=== PATIENT | male | born 1955 | race Two or more races ===

== ENCOUNTER 2017-07-31 12:32 | Inpatient (IN) | payer MEDICAID ==
[~2017-07-31] VITALS: Ht 182.9 cm; Wt 55.3 kg
[2017-07-31] MEDS ORDERED: Acetaminophen 650mg/20.3ml ONE (12:38)
[2017-07-31 12:56] VITALS: BP 110/60
[2017-07-31] MEDS ORDERED: Acetaminophen 650mg/20.3ml NG ONE (13:00)
--- NOTE | 2017-07-31 13:06 | Emergency Room Report ---
History of Present Illness General Chief Complaint: Palpitations Source: Patient (RACHELE MCGEE M.D.) Present Illness HPI [id number] Trach/vent sent for "rapid heart beat." HPI otherwise limited Recent history of ?PNA PMHx: Type 2 DM, anemia, GERD, HTN, TBI, CVA (RACHELE MCGEE M.D.) Allergies: Coded Allergies: No Known Allergies (Unverified , 07/31/17) Patient History Past Medical History: other - See HPI Past Surgical History: other - Trach Pertinent Family History: none Social History: Denies: smoking, alcohol use, drug use Immunizations: UTD Reviewed Nursing Documentation: PMH: Agreed, PSxH: Agreed (RACHELE MCGEE M.D.) Nursing Documentation-PMH Hx COPD: Yes - trach vent History Of Psychiatric Problem: Yes Hx Cerebrovascular Accident: Yes (RACHELE MCGEE M.D.) Review of Systems All Other Systems: limited - Trach/vent (RACHELE MCGEE M.D.) Physical Exam Vital Signs Date Time Temp Pulse Resp B/P (MAP) Pulse Ox O2 Delivery O2 Flow Rate FiO2 07/31/17 12:05 135 18 Mechanical Ventilator 50.0 50 07/31/17 12:15 113/68 (83) 100 07/31/17 12:52 103.8 Sp02 EP Interpretation: reviewed, normal General Appearance: normal inspection, well appearing, no apparent distress, non-toxic, thin, Chronically Ill Head: normocephalic, atraumatic Eyes: bilateral eye PERRL, bilateral eye EOMI ENT: no angioedema, uvula midline, dry mucus membranes Neck: normal inspection, full range of motion, supple, thyroid normal, no meningismus, no bony tend, tracheotomy Respiratory: normal inspection, lungs clear, normal breath sounds, no rhonchi, no respiratory distress, no retraction, no accessory muscle use, no wheezing, speaking full sentences Cardiovascular #1: regular rate, rhythm, no edema, no JVD, normal capillary refill Gastrointestinal: normal inspection, normal bowel sounds, non tender, soft, no mass, no peritonitis, non-distended, no guarding, no hernia, no pulsatile mass Genitourinary: no CVA tenderness Musculoskeletal: normal inspection, back normal, normal range of motion, no calf tenderness, pelvis stable, Deloris's Sign negative Neurologic: motor strength/tone normal, other - Contracted lower extremities to the left, bandages on feet Skin: normal inspection, normal color, no rash Lymphatic: normal inspection, no adenopathy (RACHELE MCGEE M.D.) Medical Decision Making Diagnostic Impression: Primary Impression: Sepsis Qualified Codes: A41.9 - Sepsis, unspecified organism Additional Impressions: UTI (urinary tract infection) Qualified Codes: T83.511A - Infection and inflammatory reaction due to indwelling urethral catheter, initial encounter; N39.0 - Urinary tract infection , site not specified Pleural effusion, left ER Course Sepsis criteria met - tachycardia, fever Empiric Abx, VT tylenol, 30cc/kg fluid bolus UA infected CXR: small left pleural effusion Blood Cx pending Reassessment after fluid bolus HR 120, BP 127/[address] Jensen, 124pm (RACHELE MCGEE M.D.) ER Course Please see above note. Patient septic. Vegetative state. VS improved. Due to sepsis, adding second antibiotic. Continued hydration. Discussed with Dr. Garrett at [facility] who will arrange transport. Unable to arrange transport. Admit [facility] Dr. James. Laboratory Tests Test 07/31/17 12:40 White Blood Count 23.8 K/UL (4.8-10.8) *H Red Blood Count 2.79 M/UL (4.70-6.10) L Hemoglobin 8.5 G/DL (14.2-18.0) L Hematocrit 23.0 % (42.0-52.0) L Mean Corpuscular Volume 83 FL (80-99) Mean Corpuscular Hemoglobin 30.5 PG (27.0-31.0) Mean Corpuscular Hemoglobin Concent 36.9 G/DL (32.0-36.0) H Red Cell Distribution Width 16.3 % (11.6-14.8) H Platelet Count 420 K/UL (150-450) Mean Platelet Volume 6.6 FL (6.5-10.1) Neutrophils (%) (Auto) % (45.0-75.0) Lymphocytes (%) (Auto) % (20.0-45.0) Monocytes (%) (Auto) % (1.0-10.0) Eosinophils (%) (Auto) % (0.0-3.0) Basophils (%) (Auto) % (0.0-2.0) Differential Total Cells Counted 100 Neutrophils % (Manual) 91 % (45-75) H Lymphocytes % (Manual) 5 % (20-45) L Monocytes % (Manual) 4 % (1-10) Eosinophils % (Manual) 0 % (0-3) Basophils % (Manual) 0 % (0-2) Band Neutrophils 0 % (0-8) Platelet Estimate Adequate Platelet Morphology Normal Hypochromasia 1+ Anisocytosis 1+ Urine Color Yellow Urine Appearance Clear Urine pH 5 (4.5-8.0) Urine Specific [place] 1.010 (1.005-1.035) Urine Protein 2+ (NEGATIVE) H Urine Glucose (UA) Negative (NEGATIVE) Urine Ketones 1+ (NEGATIVE) H Urine Occult Blood 3+ (NEGATIVE) H Urine Nitrite Negative (NEGATIVE) Urine Bilirubin Negative (NEGATIVE) Urine Urobilinogen Normal MG/DL (0.0-1.0) Urine Leukocyte Esterase 3+ (NEGATIVE) H Urine RBC 5-10 /HPF (0 - 0) H Urine WBC 10-15 /HPF (0 - 0) H Urine Squamous Epithelial Cells Occasional /LPF Urine Bacteria Occasional /HPF (NONE) Sodium Level 132 MMOL/L (136-145) L Potassium Level 4.0 MMOL/L (3.5-5.1) Chloride Level 98 MMOL/L (98-107) Carbon Dioxide Level 24 MMOL/L (21-32) Anion Gap 11 mmol/L (5-15) Blood Urea Nitrogen 24 mg/dL (7-18) H Creatinine 1.2 MG/DL (0.55-1.30) Estimate Glomerular Filtration Rate > 60 mL/min (>60) Glucose Level 125 MG/DL (74-106) H Lactic Acid Level 2.20 mmol/L (0.66-2.22) Calcium Level 8.2 MG/DL (8.5-10.1) L Total Bilirubin 0.3 MG/DL (0.2-1.0) Aspartate Amino Transferase (AST) 25 U/L (15-37) Alanine Aminotransferase (ALT) 11 U/L (12-78) L Alkaline Phosphatase 330 U/L (46-116) H Total Creatine Kinase 25 U/L (26-308) L Creatine Kinase MB 0.6 NG/ML (0.0-3.6) Creatine Kinase MB Relative Index 2.4 Troponin I 0.025 ng/mL (0.000-0.056) Total Protein 7.4 G/DL (6.4-8.2) Albumin 1.3 G/DL (3.4-5.0) L Globulin 6.1 g/dL Albumin/Globulin Ratio 0.2 (1.0-2.7) L Microbiology Date/Time Source Procedure Growth Status 07/31/17 13:22 Nasal Nares Influenza Types A,B Antigen (SUBHASH) - Final Complete (Faraz Redding M.D.) EKG Diagnostic Results Rate: tachycardiac Rhythm: NSR ST Segments: no acute changes ASA given to the pt in ED: No (RACHELE MCGEE M.D.) Rate: tachycardiac ST Segments: no acute changes - RBBB (Faraz Redding M.D.) Rhythm Strip Diag. Results EP Interpretation: yes Rate: 120 Rhythm: NSR, no PVC's, no ectopy (RACHELE MCGEE M.D.) EP Interpretation: yes Rhythm: no PVC's, no ectopy, other - ST (Faraz Redding M.D.) Chest X-Ray Diagnostic Results Chest X-Ray Diagnostic Results : Chest X-Ray Ordered: Yes # of Views/Limited/Complete: 1 View Indication: Other Interpretation: no consolidation, no pneumothorax, other - L pleural effusion Impression: Other Electronically Signed by: Electronically signed by Faraz Redding MD (Faraz Redding M.D.) Last Vital Signs Date Time Temp Pulse Resp B/P (MAP) Pulse Ox O2 Delivery O2 Flow Rate FiO2 07/31/17 12:58 50 07/31/17 12:56 102.8 130 18 110/60 99 Room Air 102.8 07/31/17 12:05 50.0 Status: improved (RACHELE MCGEE M.D.) Last Vital Signs Date Time Temp Pulse Resp B/P (MAP) Pulse Ox O2 Delivery O2 Flow Rate FiO2 07/31/17 23:41 110 18 50 07/31/17 20:00 98.7 132/79 100 Mechanical Ventilator 98.7 07/31/17 17:24 50.0 Status: improved (Faraz Redding M.D.) Disposition: ADMITTED INPATIENT Condition: Serious RACHELE MCGEE M.D. Jul 31, 2017 13:06 Faraz Redding M.D. Jul 31, 2017 14:12
[2017-07-31 13:10] LABS: APPEARANCE,URINE CLEAR; BILIRUBIN, URINE NEGATIVE (NEGATIVE); GLUCOSE, URINE (UA) NEGATIVE (NEGATIVE); HEMOGLOBIN 8.5 G/DL (14.2-18.0); KETONES,URINE 1+ (NEGATIVE); LEUKOCYTE ESTERASE ,URINE 3+ (NEGATIVE); MEAN CORPUSCULAR VOLUME 83 FL (80-99); NITRITE,URINE NEGATIVE (NEGATIVE); PH,URINE 5 (4.5-8.0); PLATELET COUNT 420 K/UL (150-450); PROTEIN,URINE 2+ (NEGATIVE); RED BLOOD COUNT 2.79 M/UL (4.70-6.10); RED CELL DISTRIBUTION WIDTH 16.3 % (11.6-14.8); UROBILINOGEN,URINE NORMAL MG/DL (0.0-1.0)
[2017-07-31 13:13] LABS: WHITE BLOOD COUNT 23.8 K/UL (4.8-10.8)
[2017-07-31 13:22] LABS: ANION GAP 11 mmol/L (5-15); BLOOD UREA NITROGEN 24 mg/dL (7-18); CALCIUM 8.2 MG/DL (8.5-10.1); CARBON DIOXIDE 24 MMOL/L (21-32); CHLORIDE 98 MMOL/L (98-107); CREATININE 1.2 MG/DL (0.55-1.30); SODIUM 132 MMOL/L (136-145)
[2017-07-31 13:23] LABS: COLOR,URINE YELLOW
[2017-07-31 13:36] LABS: ALANINE AMINOTRANSFERASE 11 U/L (12-78); ALBUMIN 1.3 G/DL (3.4-5.0); ALBUMIN/GLOBULIN RATIO 0.2 (1.0-2.7); ALKALINE PHOSPHATASE 330 U/L (46-116); ASPARTATE AMINO TRANSFERASE 25 U/L (15-37); BILIRUBIN,TOTAL 0.3 MG/DL (0.2-1.0); CKMB 0.6 NG/ML (0.0-3.6); CREATINE KINASE 25 U/L (26-308)
[2017-07-31] MEDS ORDERED: Cefepime HCl 1 GM in D5W 55 ML IVPB ONE (14:15)
[2017-07-31] MEDS ORDERED: Cefepime 1gm vial ONE (14:16)
[2017-07-31 14:32] VITALS: BP 97/68
[2017-07-31] MEDS ORDERED: Cefepime HCl 1 GM in NS 55 ML IVPB ONE (14:45)
[2017-07-31 15:18] VITALS: BP 132/80
[2017-07-31] MEDS ORDERED: AMIODARONE HCL400 M1 ORAL (15:35)
[2017-07-31] MEDS ORDERED: METRONIDAZOLE500 MG ORAL (15:35)
[2017-07-31] MEDS ORDERED: GLUCERNA 1.5 C237 ML GT (15:35)
[2017-07-31] MEDS ORDERED: ALBUTEROL2.5 MG/3 M INH (15:35)
[2017-07-31] MEDS ORDERED: FOLIC ACID1 MG HE (15:35)
[2017-07-31] MEDS ORDERED: PANTOPRAZOLE SO40 MG GT (15:35)
[2017-07-31] MEDS ORDERED: DILANTIN100 MG GT (15:35)
[2017-07-31] MEDS ORDERED: LEVETIRACE100 MG/1 M GT (15:35)
[2017-07-31] MEDS ORDERED: Miralax 17gm pkt ORAL PRN (17:00)
[2017-07-31] MEDS ORDERED: LORazepam Inj 2mg/ml 1ml IV PRN (17:00)
[2017-07-31] MEDS ORDERED: Morphine Sulfate 4mg/ml Inj IVP PRN (17:00)
[2017-07-31] MEDS ORDERED: Albuterol/Ipratropium 3ml neb HHN PRN (17:00)
[2017-07-31 17:30] VITALS: BP 143/82
[2017-07-31] MEDS ORDERED: Vancomycin 1.5gm/D5W 250ml 250 ML IVPB ONE (18:30)
[2017-07-31] MEDS: levETIRAcetam 500mg/5ml Liquid GT SCH (18:57)
[2017-07-31 20:00] VITALS: BP 132/79
[2017-07-31] MEDS: Phenytoin Susp 100mg/4ml GT SCH (20:56)
[2017-07-31] MEDS: Heparin 5000 units/ml inj SUBQ SCH (20:57)
[2017-07-31] MEDS: Amiodarone 200mg tab GT SCH (20:57)
[2017-07-31] MEDS: Dyna-Hex 2% Top Sol 2oz TOPIC SCH (20:58)
[2017-08-01] VITALS: BP 127/72
[2017-08-01] MEDS: Vancomycin 1 GM in D5W 275 ML IVPB SCH ×2 (02:01→10:51)
[2017-08-01 04:00] VITALS: BP 141/87
[2017-08-01 06:37] LABS: HEMATOCRIT 18.9 % (42.0-52.0); HEMOGLOBIN 7.1 G/DL (14.2-18.0); MEAN CORPUSCULAR VOLUME 83 FL (80-99); PLATELET COUNT 356 K/UL (150-450); RED BLOOD COUNT 2.28 M/UL (4.70-6.10); RED CELL DISTRIBUTION WIDTH 16.9 % (11.6-14.8); WHITE BLOOD COUNT 11.3 K/UL (4.8-10.8)
[2017-08-01 06:50] LABS: ALBUMIN 1.2 G/DL (3.4-5.0); ANION GAP 10 mmol/L (5-15); BLOOD UREA NITROGEN 18 mg/dL (7-18); CARBON DIOXIDE 24 MMOL/L (21-32); CHLORIDE 101 MMOL/L (98-107); CREATININE 1.1 MG/DL (0.55-1.30); PHOSPHORUS 3.2 MG/DL (2.5-4.9); POTASSIUM 3.3 MMOL/L (3.5-5.1); SODIUM 135 MMOL/L (136-145)
[2017-08-01 08:00] VITALS: BP 135/77
[2017-08-01 08:58] LABS: HEMATOCRIT 22.1 % (42.0-52.0); HEMOGLOBIN 7.6 G/DL (14.2-18.0); MEAN CORPUSCULAR VOLUME 83 FL (80-99); PLATELET COUNT 358 K/UL (150-450); RED BLOOD COUNT 2.67 M/UL (4.70-6.10); RED CELL DISTRIBUTION WIDTH 17.2 % (11.6-14.8); WHITE BLOOD COUNT 9.3 K/UL (4.8-10.8)
[2017-08-01 09:11] LABS: ANION GAP 9 mmol/L (5-15); BLOOD UREA NITROGEN 18 mg/dL (7-18); CALCIUM 8.3 MG/DL (8.5-10.1); CARBON DIOXIDE 23 MMOL/L (21-32); CHLORIDE 103 MMOL/L (98-107); POTASSIUM 3.8 MMOL/L (3.5-5.1); SODIUM 135 MMOL/L (136-145)
[2017-08-01] MEDS: Pantoprazole Inj IV SCH (09:37)
[2017-08-01] MEDS: Amiodarone 200mg tab GT SCH ×2 (09:38→20:35)
[2017-08-01] MEDS: levETIRAcetam 500mg/5ml Liquid GT SCH ×2 (09:38→17:13)
[2017-08-01] MEDS: Heparin 5000 units/ml inj SUBQ SCH ×2 (09:47→20:37)
--- NOTE | 2017-08-01 11:54 | Consultation ---
Consult Note Consult Note ID DIC # [id number] KRYSTIN JAQUEZ M.D. Aug 01, 2017 11:54
--- NOTE | 2017-08-01 11:56 | History and Physical ---
History of Present Illness General Date patient seen: Aug 01, 2017 Reason for Hospitalization: Palpitations Present Illness HPI 62 YEAR OLD MALE WITH HX OF CHRONIC TRACH/VENT/PEG, USP RESIDENT BROUGHT IN WITH COMPLAINTS OF RAPID HEART BEAT. PT HAD A TEMP OF 103 AND IS ADMITTED TO [facility] FOR FURTHER TREATMENT. Allergies: Coded Allergies: No Known Allergies (Unverified , 07/31/17) Medication History Scheduled Amiodarone Hcl* (Amiodarone Hcl*), 200 MG ORAL EVERY 12 HOURS, (Reported) Folic Acid* (Folic Acid*), 1 MG HE DAILY, (Reported) Levetiracetam* (Levetiracetam*), 250 MG GT BID, (Reported) Metronidazole* (Flagyl*), 500 MG ORAL EVERY 8 HOURS, (Reported) Pantoprazole* (Pantoprazole*), 40 MG GT DAILY, (Reported) Phenytoin Sodium Extended* (Dilantin*), 200 MG GT BEDTIME, (Reported) Scheduled PRN Albuterol Sulfate* (Albuterol Sulfate Hhn*), 3 ML INH Q4H PRN for Shortness of Breath, (Reported) Miscellaneous Medications Nut.tx.gluc.intoler,Lac-Fr,Soy (Glucerna 1.5 Toro), 1,000 ML GT, (Reported) Patient History Healthcare decision maker N Resuscitation status Full Code Advanced Directive on File Past Medical/Surgical History Past Medical/Surgical History: (1) Encephalopathy (2) Feeding by G-tube (3) Chronic respiratory failure Review of Systems All Other Systems: negative except mentioned in HPI Physical Exam General Appearance: WD/WN Lines, tubes and drains: peripheral HEENT: normocephalic, atraumatic Neck: non-tender, normal alignment Respiratory/Chest: chest wall non-tender, lungs clear Cardiovascular/Chest: normal peripheral pulses, normal rate Abdomen: normal bowel sounds, non tender Genitourinary/Rectal: normal genital exam, normal rectal exam Extremities: normal range of motion, non-tender Skin Exam: normal pigmentation Neurologic: healthcare market consultant II-XII 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 Last 24 Hour Vital Signs Date Time Temp Pulse Resp B/P (MAP) Pulse Ox O2 Delivery O2 Flow Rate FiO2 08/01/17 10:38 111 18 50 08/01/17 08:37 118 18 50 08/01/17 08:00 98.1 111 18 135/77 100 Mechanical Ventilator 50 98.1 08/01/17 08:00 50 08/01/17 07:26 98 08/01/17 07:18 103 18 50 08/01/17 07:17 84 21 Mechanical Ventilator 50 08/01/17 05:09 106 18 50 08/01/17 04:00 98.7 105 19 141/87 98 Mechanical Ventilator 50 98.7 08/01/17 04:00 50 08/01/17 04:00 103 08/01/17 03:18 92 19 50 08/01/17 00:00 106 08/01/17 00:00 98.6 107 18 127/72 98 Mechanical Ventilator 50 98.6 07/31/17 23:41 110 18 50 07/31/17 21:15 93 18 50 07/31/17 20:00 50 07/31/17 20:00 106 07/31/17 20:00 98.7 100 18 132/79 100 Mechanical Ventilator 50 98.7 07/31/17 19:25 80 18 Mechanical Ventilator 50 07/31/17 19:25 80 18 50 07/31/17 17:30 97.7 107 24 143/82 100 Mechanical Ventilator 50 97.7 07/31/17 17:27 116 07/31/17 17:24 98.7 18 137/77 100 Room Air 50.0 50 98.7 07/31/17 16:50 111 18 50 07/31/17 15:28 113 18 50 07/31/17 15:18 98.7 20 132/80 100 Room Air 50.0 50 98.7 07/31/17 14:32 99.6 18 97/68 99 Room Air 50.0 50 99.6 07/31/17 13:44 102.8 07/31/17 13:07 123 18 50 07/31/17 12:58 50 07/31/17 12:56 102.8 130 18 110/60 99 Room Air 102.8 07/31/17 12:52 103.8 07/31/17 12:15 130 18 113/60 99 Mechanical Ventilator 07/31/17 12:15 113/68 (83) 100 07/31/17 12:05 135 18 50 07/31/17 12:05 135 18 Mechanical Ventilator 50.0 50 Intake and Output 07/31/17 08/01/17 19:00 07:00 Intake Total 0 ml 585 ml Output Total 800 ml 1500 ml Balance -800 ml -915 ml Intake Oral 0 ml Free Water 100 ml IV Total 275 ml Tube Feeding 210 ml Output Urine Total 800 ml 1500 ml # Bowel Movements 3 2 Laboratory Tests Test 07/31/17 12:40 07/31/17 15:06 08/01/17 04:00 08/01/17 08:30 White Blood Count 23.8 K/UL (4.8-10.8) *H 11.3 K/UL (4.8-10.8) #H 9.3 K/UL (4.8-10.8) Red Blood Count 2.79 M/UL (4.70-6.10) L 2.28 M/UL (4.70-6.10) L 2.67 M/UL (4.70-6.10) L Hemoglobin 8.5 G/DL (14.2-18.0) L 7.1 G/DL (14.2-18.0) L 7.6 G/DL (14.2-18.0) L Hematocrit 23.0 % (42.0-52.0) L 18.9 % (42.0-52.0) L 22.1 % (42.0-52.0) L Mean Corpuscular Volume 83 FL (80-99) 83 FL (80-99) 83 FL (80-99) Mean Corpuscular Hemoglobin 30.5 PG (27.0-31.0) 31.3 PG (27.0-31.0) H 28.6 PG (27.0-31.0) Mean Corpuscular Hemoglobin Concent 36.9 G/DL (32.0-36.0) H 37.8 G/DL (32.0-36.0) H 34.6 G/DL (32.0-36.0) Red Cell Distribution Width 16.3 % (11.6-14.8) H 16.9 % (11.6-14.8) H 17.2 % (11.6-14.8) H Platelet Count 420 K/UL (150-450) 356 K/UL (150-450) 358 K/UL (150-450) Mean Platelet Volume 6.6 FL (6.5-10.1) 6.4 FL (6.5-10.1) L 6.7 FL (6.5-10.1) Neutrophils (%) (Auto) % (45.0-75.0) % (45.0-75.0) % (45.0-75.0) Lymphocytes (%) (Auto) % (20.0-45.0) % (20.0-45.0) % (20.0-45.0) Monocytes (%) (Auto) % (1.0-10.0) % (1.0-10.0) % (1.0-10.0) Eosinophils (%) (Auto) % (0.0-3.0) % (0.0-3.0) % (0.0-3.0) Basophils (%) (Auto) % (0.0-2.0) % (0.0-2.0) % (0.0-2.0) Differential Total Cells Counted 100 100 Neutrophils % (Manual) 91 % (45-75) H 70 % (45-75) Lymphocytes % (Manual) 5 % (20-45) L 13 % (20-45) L Monocytes % (Manual) 4 % (1-10) 9 % (1-10) Eosinophils % (Manual) 0 % (0-3) 7 % (0-3) H Basophils % (Manual) 0 % (0-2) 1 % (0-2) Band Neutrophils 0 % (0-8) 0 % (0-8) Platelet Estimate Adequate Adequate Platelet Morphology Normal Normal Hypochromasia 1+ 3+ Anisocytosis 1+ 1+ Urine Color Yellow Urine Appearance Clear Urine pH 5 (4.5-8.0) Urine Specific [place] 1.010 (1.005-1.035) Urine Protein 2+ (NEGATIVE) H Urine Glucose (UA) Negative (NEGATIVE) Urine Ketones 1+ (NEGATIVE) H Urine Occult Blood 3+ (NEGATIVE) H Urine Nitrite Negative (NEGATIVE) Urine Bilirubin Negative (NEGATIVE) Urine Urobilinogen Normal MG/DL (0.0-1.0) Urine Leukocyte Esterase 3+ (NEGATIVE) H Urine RBC 5-10 /HPF (0 - 0) H Urine WBC 10-15 /HPF (0 - 0) H Urine Squamous Epithelial Cells Occasional /LPF Urine Bacteria Occasional /HPF (NONE) Sodium Level 132 MMOL/L (136-145) L 135 MMOL/L (136-145) L 135 MMOL/L (136-145) L Potassium Level 4.0 MMOL/L (3.5-5.1) 3.3 MMOL/L (3.5-5.1) L 3.8 MMOL/L (3.5-5.1) Chloride Level 98 MMOL/L (98-107) 101 MMOL/L (98-107) 103 MMOL/L (98-107) Carbon Dioxide Level 24 MMOL/L (21-32) 24 MMOL/L (21-32) 23 MMOL/L (21-32) Anion Gap 11 mmol/L (5-15) 10 mmol/L (5-15) 9 mmol/L (5-15) Blood Urea Nitrogen 24 mg/dL (7-18) H 18 mg/dL (7-18) 18 mg/dL (7-18) Creatinine 1.2 MG/DL (0.55-1.30) 1.1 MG/DL (0.55-1.30) 1.0 MG/DL (0.55-1.30) Estimat Glomerular Filtration Rate > 60 mL/min (>60) > 60 mL/min (>60) > 60 mL/min (>60) Glucose Level 125 MG/DL (74-106) H 123 MG/DL (74-106) H 125 MG/DL (74-106) H Lactic Acid Level 2.20 mmol/L (0.66-2.22) 1.70 mmol/L (0.66-2.22) Calcium Level 8.2 MG/DL (8.5-10.1) L 8.0 MG/DL (8.5-10.1) L 8.3 MG/DL (8.5-10.1) L Total Bilirubin 0.3 MG/DL (0.2-1.0) Aspartate Amino Transf (AST/SGOT) 25 U/L (15-37) Alanine Aminotransferase (ALT/SGPT) 11 U/L (12-78) L Alkaline Phosphatase 330 U/L (46-116) H Total Creatine Kinase 25 U/L (26-308) L Creatine Kinase MB 0.6 NG/ML (0.0-3.6) Creatine Kinase MB Relative Index 2.4 Troponin I 0.025 ng/mL (0.000-0.056) Total Protein 7.4 G/DL (6.4-8.2) Albumin 1.3 G/DL (3.4-5.0) L 1.2 G/DL (3.4-5.0) L Globulin 6.1 g/dL Albumin/Globulin Ratio 0.2 (1.0-2.7) L Phosphorus Level 3.2 MG/DL (2.5-4.9) Spherocytes 2+ Microbiology Date/Time Source Procedure Growth Status 07/31/17 13:22 Nasal Nares Influenza Types A,B Antigen (SUBHASH) - Final Complete 07/31/17 12:40 Urine,Clean Catch Urine Culture - Preliminary NO GROWTH Resulted Height (Feet): 6 Height (Inches): 0.00 Weight (Pounds): 131 Medications Current Medications Medications (Trade) Dose Ordered Sig/Serena Route PRN Reason Start Time Stop Time Status Last Admin Dose Admin Acetaminophen (Tylenol) 650 mg Q4H PRN ORAL FEVER 07/31/17 17:00 08/30/17 16:59 Albuterol/ Ipratropium (Albuterol/ Ipratropium) 3 ml Q4H PRN HHN Shortness of Breath 07/31/17 17:00 08/05/17 16:59 Amiodarone HCl (Cordarone) 200 mg EVERY 12 HOURS GT 07/31/17 21:00 08/30/17 20:59 08/01/17 09:38 Chlorhexidine Gluconate (Ngoc-Hex 2%) 1 applic DAILY@1999 TOPIC 07/31/17 20:00 08/30/17 19:59 07/31/17 20:58 Dextrose (Dextrose 50%) STAT PRN IV Hypoglycemia 07/31/17 17:00 08/30/17 16:59 Heparin Sodium (Porcine) (Heparin 5000 units/ml) 5,000 units EVERY 12 HOURS SUBQ 07/31/17 21:00 08/30/17 20:59 08/01/17 09:47 Levetiracetam (Keppra) 250 mg BID GT 07/31/17 18:00 08/30/17 17:59 08/01/17 09:38 Lorazepam (Ativan 2mg/ml 1ml) 2 mg Q2H PRN IV For Anxiety 07/31/17 17:00 08/07/17 16:59 Morphine Sulfate (Morphine Sulfate) 4 mg Q4H PRN IVP Severe Pain (Pain Scale 7-10) 07/31/17 17:00 08/07/17 16:59 Ondansetron HCl (Zofran) 4 mg Q6H PRN IVP Nausea & Vomiting 07/31/17 17:00 08/30/17 16:59 Pantoprazole (Protonix) 40 mg DAILY IV 08/01/17 09:00 08/31/17 08:59 08/01/17 09:37 Phenytoin (Dilantin) 200 mg BEDTIME GT 07/31/17 21:00 08/30/17 20:59 07/31/17 20:56 Polyethylene Glycol (Miralax) 17 gm DAILYPRN PRN ORAL Constipation 07/31/17 17:00 08/30/17 16:59 Vancomycin HCl (Vanco rx to dose) 1 ea DAILYPRN PRN MISC RX TO DOSE PROTOCOL 07/31/17 17:30 08/30/17 17:29 Vancomycin HCl 1 gm/Dextrose 275 ml @ 183.3 mls/ hr Q8HR@0200,1000,1800 IVPB 08/01/17 02:00 08/06/17 01:59 08/01/17 10:51 Assessment/Plan Problem List: (1) Sepsis ICD Codes: A41.9 - Sepsis, unspecified organism SNOMED: 57798142 Qualifiers: Qualified Codes: A41.9 - Sepsis, unspecified organism (2) Chronic respiratory failure ICD Codes: J96.10 - Chronic respiratory failure, unspecified whether with hypoxia or hypercapnia SNOMED: 10094100 (3) Encephalopathy ICD Codes: G93.40 - Encephalopathy, unspecified SNOMED: 67636990 (4) Pleural effusion, left ICD Codes: J90 - Pleural effusion, not elsewhere classified SNOMED: 45512093 (5) UTI (urinary tract infection) ICD Codes: N39.0 - Urinary tract infection, site not specified SNOMED: 87611698 Qualifiers: Qualified Codes: T83.511A - Infection and inflammatory reaction due to indwelling urethral catheter, initial encounter; N39.0 - Urinary tract infection , site not specified (6) Feeding by G-tube ICD Codes: Z93.1 - Gastrostomy status SNOMED: 103749253, 676405361 Respiratory: monitor respiratory rate, adjust FIO2, CXR Cardiac: continue to monitor HR/BP Renal: F/U I&O, keep IV fluid Infectious Disease: check cultures Gastrointestinal: continue feedings/current rate Endocrine: monitor blood sugar, check HgA1C, continue sliding scale insulin Hematologic: monitor H/H, transfuse if hgb<8.5 Neurologic: PRN Ativan, PRN Morphine, keep patient comfortable Affect: PRN ativan Notes Reviewed: insights manager, cardio Discussed with: nurses, consultants, caser NOEL MICHELLE Aug 01, 2017 11:55
[2017-08-01 12:00] VITALS: BP 142/83
--- NOTE | 2017-08-01 12:18 | Diagnostic Imaging Report ---
Indication: Dyspnea Comparison: None A single view chest radiograph was obtained. Findings: Tracheostomy noted. Heart size is normal. There is a right PICC line present with the tip in the right atrium. There is evidence of a left pleural effusion. Gastrostomy noted. Mild vascular congestion suspected. Bones are osteopenic. IMPRESSION: Left pleural effusion Suspected interstitial edema. Tubes and lines satisfactory position
--- NOTE | 2017-08-01 13:16 | Consultation ---
Consult Note Assessment/Plan Podiatry Consult dictated A/ 1) Multiple bilateral lower extremity ulcers - likely ischemic in nature 2) Knee contractures flexible 3) Abnormal mobility 2/2 CVA P/ 1) Agree with foam dressings to lower extremity. No surgical intervention at this time. 2) Apply heel protectors 3) Arterial ultz of BLE pending 4) CRP and ESR pending, if elevated should consider bone scan 5) Cont abx per ID 6) PT to mobilize knees to prevent rigid knee contractures Will follow. Thank you Tex Scott DPM Aug 01, 2017 13:16
[2017-08-01] MEDS: Cefepime HCl 2 GM in NS 55 ML IVPB SCH (13:29)
[2017-08-01 16:00] VITALS: BP 151/90
--- NOTE | 2017-08-01 18:45 | Consultation ---
DATE OF CONSULTATION: 08/01/2017 INFECTIOUS DISEASES CONSULTATION CONSULTING PHYSICIAN: Norman Chen M.D. REFERRING PHYSICIAN: Ernestina James M.D. REASON FOR CONSULTATION: Evaluation of the patient for sepsis, leukocytosis, antibiotic management. HISTORY OF PRESENT ILLNESS: The patient is a 62-year-old male with multiple medical problems who was transferred from long-term to this medical center due to fever, tachycardia, possible pneumonia. The patient has been started on IV antibiotics. At time of admission, the patient was found to have leukocytosis that has improved. Infectious Diseases consultation has been requested for further evaluation and antibiotic management. PAST MEDICAL HISTORY: 1. Diabetes. 2. Anemia. 3. GERD. 4. Hypertension. 5. History of TBI. 6. Seizure disorder. MEDICATIONS: IV vancomycin and cefepime. ALLERGIES: No known drug allergies. SOCIAL HISTORY: Lives in long-term. FAMILY HISTORY: Unavailable. REVIEW OF SYSTEMS: Unobtainable. PHYSICAL EXAMINATION: VITAL SIGNS: Temperature 98 degrees, pulse 86, respiratory rate 18, blood pressure 135/57. HEENT: No pale conjunctivae. No icterus. NECK: No lymphadenopathy. CHEST: Coarse breathing sounds . HEART: S1 and S2. ABDOMEN: Soft. PEG tube in place. EXTREMITIES: The patient has multiple decubitus and left heel unstageable decubitus with purulent discharge. LABORATORY AND DIAGNOSTIC DATA: White blood cells today 9.3 and at time of admission 23, hemoglobin 10.6, platelet 358, UA 10 to 15 white blood cells. BUN 18 and creatinine 1. AST 25, ALT 11, alkaline phosphatase 310. ASSESSMENT: The patient is a 62-year-old male with: 1. Fever, improving. 2. Diarrhea, rule out Clostridium difficile. 3. Rule out ventilatory-associated pneumonia (chest x-ray pending). 4. Elevated alkaline phosphatase rule out biliary disease. 5. Rule out influenza. 6. Rule out bacteremia. 7. Multiple decubitus of lower extremity. 8. Left heel unstageable decubitus (no purulent discharge.) PLAN: 1. We will continue the patient on IV vancomycin and cefepime day #2. 2. Stool for C. difficile. 3. Rapid influenza test. 4. Monitor blood cultures. 5. Sputum culture. 6. Urine culture. 7. Ultrasound of the abdomen, rule out biliary disease. 8. Monitor chest x-ray. 9. Based on the patient's clinical course and laboratories, we will do further recommendation. Thank you, Dr. James, for allowing me to participate in the care of this patient. I will follow the patient with you during this hospitalization. Norman Chen M.D. DR: Herman JOB#: [id number] CC:
--- NOTE | 2017-08-01 19:15 | Consultation ---
DATE OF CONSULTATION: 08/01/2017 CONSULTING PHYSICIAN: Tex Prajapati D.P.M. ATTENDING PHYSICIAN: Ernestina James M.D. REASON FOR CONSULTATION: Multiple lower extremity ulcerations that are necrotic. HISTORY OF PRESENT ILLNESS: The patient was was admitted to [facility] on July 31, 2017 for sepsis and pneumonia. The patient was noted to have multiple lower extremity ulcerations which looked ischemic in nature. Podiatry was consulted for wound care evaluation and recommendation. PAST MEDICAL HISTORY: Significant for history of sepsis, small bowel obstruction, history of tracheostomy, history of G-tube placement, history of hypertension, seizure disorder, history of cerebrovascular accident, and history of cardiac arrest. ALLERGIES: He has no known drug allergies. MEDICATIONS: Per MAR and includes cefepime and vancomycin, heparin for DVT prophylaxis. SOCIAL HISTORY: Noncontributory. FAMILY HISTORY: Noncontributory. REVIEW OF SYSTEMS: Unobtainable as patient is nonverbal. History is obtained through chart review. PHYSICAL EXAMINATION: VITAL SIGNS: Temperature is 97.7, pulse 99, respirations 18, blood pressure 142/83, and saturating 100% on the ventilator. EXTREMITIES: Lower extremity physical exam, vascular, nonpalpable pedal pulses noted bilaterally. Feet are equally warm. There is no edema or cyanosis noted. DERMATOLOGICAL: There are multiple full-thickness ulcerations noted on bilateral lower extremities, many of them with necrotic base, full photo documentation is noted on the electronic chart. No signs of malodor, drainage, or erythema. MUSCULOSKELETAL: The patient is bedbound. No gross deformities are noted other than flexible contractures of the bilateral knees. IMAGING: No lower extremity imaging is noted at this admission. LABORATORY DATA: Potassium 3.8, BUN 18, creatinine 1.0, glucose 125, albumin is 1.2. White blood cell count is 9.3, down from admission of 23.8, hemoglobin and hematocrit is 7.6 and 22.1, platelet count 358. ASSESSMENT: 1. Multiple bilateral lower extremity ulcers likely ischemic in nature. 2. Knee contractures bilateral that are flexible. 3. Abnormal mobility secondary to cerebrovascular accident. PLAN: 1. Agree with foam dressings to the lower extremity wound. No surgical intervention at this time. 2. Apply heel protectors. 3. Arterial ultrasound of bilateral lower extremities is pending. 4. CRP and sedimentation rate are pending. If elevated should consider bone scan to evaluate for osteomyelitis bilateral. 5. Continue antibiotics per ID. 6. Ordered physical therapy to evaluate and immobilize the knees to prevent rigid knee contractures. 7. We will follow. Thank you for the courtesy of this consultation, Dr. James. Tex Prajapati D.P.M. DR: Yakov JOB#: [id number] CC:
[2017-08-01 20:00] VITALS: BP_SYST 144; BP_SYST 148; BP_DIAS 56; BP_DIAS 86
[2017-08-01] MEDS: Dyna-Hex 2% Top Sol 2oz TOPIC SCH (20:35)
[2017-08-01] MEDS: Phenytoin Susp 100mg/4ml GT SCH (20:36)
[2017-08-02] VITALS: BP 146/81
[2017-08-02] MEDS: Cefepime HCl 2 GM in NS 55 ML IVPB SCH ×2 (01:21→13:30)
[2017-08-02 04:00] VITALS: BP 130/78
[2017-08-02 04:51] LABS: HEMATOCRIT 22.2 % (42.0-52.0); HEMOGLOBIN 7.9 G/DL (14.2-18.0); MEAN CORPUSCULAR VOLUME 84 FL (80-99); PLATELET COUNT 381 K/UL (150-450); RED BLOOD COUNT 2.65 M/UL (4.70-6.10); RED CELL DISTRIBUTION WIDTH 16.4 % (11.6-14.8); WHITE BLOOD COUNT 7.8 K/UL (4.8-10.8)
[2017-08-02 05:29] LABS: ALANINE AMINOTRANSFERASE 11 U/L (12-78); ALBUMIN 1.3 G/DL (3.4-5.0); ALBUMIN/GLOBULIN RATIO 0.2 (1.0-2.7); ALKALINE PHOSPHATASE 211 U/L (46-116); ANION GAP 8 mmol/L (5-15); ASPARTATE AMINO TRANSFERASE 20 U/L (15-37); BILIRUBIN,TOTAL 0.3 MG/DL (0.2-1.0); BLOOD UREA NITROGEN 14 mg/dL (7-18); CALCIUM 8.5 MG/DL (8.5-10.1); CARBON DIOXIDE 25 MMOL/L (21-32); CHLORIDE 105 MMOL/L (98-107); PHOSPHORUS 4.1 MG/DL (2.5-4.9); POTASSIUM 3.2 MMOL/L (3.5-5.1); SODIUM 138 MMOL/L (136-145)
[2017-08-02 07:56] LABS: BASOPHILS % (AUTO) 1.1 % (0.0-2.0); EOSINOPHILS % (AUTO) 5.1 % (0.0-3.0); HEMOGLOBIN 8.3 G/DL (14.2-18.0); LYMPHOCYTES % (AUTO) 19.7 % (20.0-45.0); MEAN CORPUSCULAR VOLUME 83 FL (80-99); MONOCYTES % (AUTO) 9.9 % (1.0-10.0); NEUTROPHILS % (AUTO) 64.2 % (45.0-75.0); PLATELET COUNT 405 K/UL (150-450); RED BLOOD COUNT 2.88 M/UL (4.70-6.10); RED CELL DISTRIBUTION WIDTH 16.2 % (11.6-14.8); WHITE BLOOD COUNT 7.1 K/UL (4.8-10.8)
[2017-08-02 07:58] LABS: ANION GAP 8 mmol/L (5-15); BLOOD UREA NITROGEN 14 mg/dL (7-18); CALCIUM 8.7 MG/DL (8.5-10.1); CARBON DIOXIDE 24 MMOL/L (21-32); CHLORIDE 106 MMOL/L (98-107); POTASSIUM 3.5 MMOL/L (3.5-5.1); SODIUM 138 MMOL/L (136-145)
[2017-08-02 08:00] VITALS: BP 144/87
--- NOTE | 2017-08-02 08:56 | Infectious Diseases Prog Note ---
Assessment/Plan Assessment/Plan HISTORY OF PRESENT ILLNESS: The patient is a 62-year-old male with multiple medical problems who was transferred from shelter to this medical center due to fever, tachycardia, possible pneumonia. The patient has been started on IV antibiotics. At time of admission, the patient was found to have leukocytosis that has improved. Infectious Diseases consultation has been requested for further evaluation and antibiotic management. ASSESSMENT: The patient is a 62-year-old male with: Leukocytosis, SP Fever, SP Diarrhea Clostridium difficile: Neg doubt ventilatory-associated pneumonia (chest x-ray: L Pleural effusion) Elevated alkaline phosphatase rule out biliary disease. Influenza: Neg Rule out bacteremia. Multiple decubitus of lower extremity. Left heel unstageable decubitus (no purulent discharge.) Diabetes. Anemia. GERD. Hypertension. History of TBI. Seizure disorder PLAN: continue the patient on IV vancomycin and cefepime day # 3 ( october Vanco soon ) Monitor blood cultures. Sputum culture. Urine culture. Ultrasound of the abdomen, rule out biliary disease. Monitor chest x-ray. Subjective Constitutional: Denies: no symptoms, fever, chills, fatigue, anorexia, drenching sweats, other Allergies: Coded Allergies: No Known Allergies (Unverified , 07/31/17) Objective Vital Signs Last 24 Hour Vital Signs Date Time Temp Pulse Resp B/P (MAP) Pulse Ox O2 Delivery O2 Flow Rate FiO2 08/02/17 06:46 94 18 50 08/02/17 06:46 94 18 Mechanical Ventilator 50 08/02/17 05:04 102 18 50 08/02/17 04:00 107 08/02/17 04:00 50 08/02/17 04:00 97.7 102 24 130/78 100 Mechanical Ventilator 50 97.7 08/02/17 02:32 110 19 50 08/02/17 00:57 103 19 50 08/02/17 00:00 102 08/02/17 00:00 97.5 105 19 146/81 100 Mechanical Ventilator 50 97.5 08/02/17 00:00 50 08/01/17 23:14 107 19 50 08/01/17 21:09 108 19 50 08/01/17 20:00 97.2 104 20 148/86 100 Mechanical Ventilator 50 97.2 08/01/17 20:00 105 08/01/17 20:00 50 08/01/17 19:17 104 19 50 08/01/17 19:16 104 19 Mechanical Ventilator 50 08/01/17 17:15 107 19 50 08/01/17 16:00 50 08/01/17 16:00 97.9 108 18 151/90 100 Mechanical Ventilator 50 97.9 08/01/17 15:31 108 08/01/17 15:21 102 18 50 08/01/17 13:23 108 18 50 08/01/17 12:00 50 08/01/17 12:00 97.7 99 18 142/83 100 Mechanical Ventilator 50 97.7 08/01/17 11:34 106 08/01/17 10:38 111 18 50 Height (Feet): 6 Height (Inches): 0.00 Weight (Pounds): 132 HEENT: anicteric Respiratory/Chest: normal breath sounds Cardiovascular: regular rhythm Abdomen: no organomegaly Microbiology Date/Time Source Procedure Growth Status 07/31/17 12:40 Blood Blood Culture - Preliminary NO GROWTH AFTER 24 HOURS Resulted 07/31/17 12:40 Blood Blood Culture - Preliminary NO GROWTH AFTER 24 HOURS Resulted 07/31/17 13:23 Nasal Nares MRSA Culture - Final NO METHICILLIN RESISTANT STAPH AUREUS... Complete 07/31/17 13:22 Nasal Nares Influenza Types A,B Antigen (SUBHASH) - Final Complete 08/01/17 18:00 Stool Clostridium difficile Toxin Assay - Final Complete 07/31/17 12:40 Urine,Clean Catch Urine Culture - Preliminary NO GROWTH AFTER 24 HOURS Resulted Laboratory Tests Test 08/01/17 16:40 08/02/17 03:30 08/02/17 07:35 Vancomycin Level Trough 47.0 ug/mL (5.0-12.0) H White Blood Count 7.8 K/UL (4.8-10.8) 7.1 K/UL (4.8-10.8) Red Blood Count 2.65 M/UL (4.70-6.10) L 2.88 M/UL (4.70-6.10) L Hemoglobin 7.9 G/DL (14.2-18.0) L 8.3 G/DL (14.2-18.0) L Hematocrit 22.2 % (42.0-52.0) L 24.0 % (42.0-52.0) L Mean Corpuscular Volume 84 FL (80-99) 83 FL (80-99) Mean Corpuscular Hemoglobin 30.0 PG (27.0-31.0) 28.7 PG (27.0-31.0) Mean Corpuscular Hemoglobin Concent 35.7 G/DL (32.0-36.0) 34.6 G/DL (32.0-36.0) Red Cell Distribution Width 16.4 % (11.6-14.8) H 16.2 % (11.6-14.8) H Platelet Count 381 K/UL (150-450) 405 K/UL (150-450) Mean Platelet Volume 6.5 FL (6.5-10.1) 6.2 FL (6.5-10.1) L Neutrophils (%) (Auto) % (45.0-75.0) 64.2 % (45.0-75.0) Lymphocytes (%) (Auto) % (20.0-45.0) 19.7 % (20.0-45.0) L Monocytes (%) (Auto) % (1.0-10.0) 9.9 % (1.0-10.0) Eosinophils (%) (Auto) % (0.0-3.0) 5.1 % (0.0-3.0) H Basophils (%) (Auto) % (0.0-2.0) 1.1 % (0.0-2.0) Erythrocyte Sedimentation Rate 130 MM/HR (0-20) H Sodium Level 138 MMOL/L (136-145) 138 MMOL/L (136-145) Potassium Level 3.2 MMOL/L (3.5-5.1) L 3.5 MMOL/L (3.5-5.1) Chloride Level 105 MMOL/L (98-107) 106 MMOL/L (98-107) Carbon Dioxide Level 25 MMOL/L (21-32) 24 MMOL/L (21-32) Anion Gap 8 mmol/L (5-15) 8 mmol/L (5-15) Blood Urea Nitrogen 14 mg/dL (7-18) 14 mg/dL (7-18) Creatinine 1.0 MG/DL (0.55-1.30) 1.0 MG/DL (0.55-1.30) Estimat Glomerular Filtration Rate > 60 mL/min (>60) > 60 mL/min (>60) Glucose Level 110 MG/DL (74-106) H 105 MG/DL (74-106) Calcium Level 8.5 MG/DL (8.5-10.1) 8.7 MG/DL (8.5-10.1) Phosphorus Level 4.1 MG/DL (2.5-4.9) Magnesium Level 1.5 MG/DL (1.8-2.4) L 1.6 MG/DL (1.8-2.4) L Total Bilirubin 0.3 MG/DL (0.2-1.0) Aspartate Amino Transf (AST/SGOT) 20 U/L (15-37) Alanine Aminotransferase (ALT/SGPT) 11 U/L (12-78) L Alkaline Phosphatase 211 U/L (46-116) H C-Reactive Protein, Quantitative 8.8 mg/dL (0.00-0.90) H Total Protein 7.2 G/DL (6.4-8.2) Albumin 1.3 G/DL (3.4-5.0) L Globulin 5.9 g/dL Albumin/Globulin Ratio 0.2 (1.0-2.7) L Random Vancomycin Level 35.6 ug/mL Current Medications Medications (Trade) Dose Ordered Sig/Serena Route PRN Reason Start Time Stop Time Status Last Admin Dose Admin Acetaminophen (Tylenol) 650 mg Q4H PRN ORAL FEVER 07/31/17 17:00 08/30/17 16:59 Albuterol/ Ipratropium (Albuterol/ Ipratropium) 3 ml Q4H PRN HHN Shortness of Breath 07/31/17 17:00 08/05/17 16:59 Amiodarone HCl (Cordarone) 200 mg EVERY 12 HOURS GT 07/31/17 21:00 08/30/17 20:59 08/01/17 20:35 Cefepime HCl 2 gm/ Sodium Chloride 55 ml @ 110 mls/hr Q12H IVPB 08/01/17 13:00 08/08/17 23:59 08/02/17 01:21 Chlorhexidine Gluconate (Ngoc-Hex 2%) 1 applic DAILY@2000 TOPIC 07/31/17 20:00 08/30/17 19:59 2/26/18 20:35 Dextrose (Dextrose 50%) STAT PRN IV Hypoglycemia 07/31/17 17:00 08/30/17 16:59 Heparin Sodium (Porcine) (Heparin 5000 units/ml) 5,000 units EVERY 12 HOURS SUBQ 07/31/17 21:00 08/30/17 20:59 08/01/17 20:37 Levetiracetam (Keppra) 250 mg BID GT 07/31/17 18:00 08/30/17 17:59 08/01/17 17:13 Lorazepam (Ativan 2mg/ml 1ml) 2 mg Q2H PRN IV For Anxiety 07/31/17 17:00 08/07/17 16:59 Morphine Sulfate (Morphine Sulfate) 4 mg Q4H PRN IVP Severe Pain (Pain Scale 7-10) 07/31/17 17:00 08/07/17 16:59 Ondansetron HCl (Zofran) 4 mg Q6H PRN IVP Nausea & Vomiting 07/31/17 17:00 08/30/17 16:59 Pantoprazole (Protonix) 40 mg DAILY IV 08/01/17 09:00 08/31/17 08:59 08/01/17 09:37 Phenytoin (Dilantin) 200 mg BEDTIME GT 07/31/17 21:00 08/30/17 20:59 08/01/17 20:36 Polyethylene Glycol (Miralax) 17 gm DAILYPRN PRN ORAL Constipation 07/31/17 17:00 08/30/17 16:59 Vancomycin HCl (Vanco rx to dose) 1 ea DAILYPRN PRN MISC RX TO DOSE PROTOCOL 07/31/17 17:30 08/30/17 17:29 KRYSTIN JAQUEZ M.D. Aug 02, 2017 08:56
[2017-08-02] MEDS: Amiodarone 200mg tab GT SCH ×2 (09:28→21:13)
[2017-08-02] MEDS: Pantoprazole Inj IV SCH (09:28)
[2017-08-02] MEDS: levETIRAcetam 500mg/5ml Liquid GT SCH ×2 (09:28→17:10)
[2017-08-02] MEDS: Heparin 5000 units/ml inj SUBQ SCH ×2 (09:43→21:14)
--- NOTE | 2017-08-02 10:29 | Pulmonolgy Critical Care Note ---
Critical Care - Asmt/Plan Problems: (1) Sepsis (2) Chronic respiratory failure (3) UTI (urinary tract infection) (4) Feeding by G-tube (5) Pressure ulcer Respiratory: monitor respiratory rate, adjust FIO2 Cardiac: continue to monitor HR/BP Renal: F/U I&O, keep IV fluid Infectious Disease: check cultures Gastrointestinal: continue feedings/current rate Endocrine: monitor blood sugar, check TSH, check HgA1C, continue sliding scale insulin Hematologic: transfuse if hgb<8.5 Neurologic: PRN Ativan, keep patient comfortable Affect: PRN ativan Prophylaxis: Protonix Disposition: keep in ICU Notes Reviewed: stock handler floorperson, renal Discussed with: nurses, consultants, case consultantconcert or lecture hall manager - Objective Last 24 Hour Vital Signs Date Time Temp Pulse Resp B/P (MAP) Pulse Ox O2 Delivery O2 Flow Rate FiO2 08/02/17 08:58 96 18 50 08/02/17 08:00 98.1 101 18 144/87 100 Mechanical Ventilator 50 98.1 08/02/17 07:49 94 08/02/17 06:46 94 18 50 08/02/17 06:46 94 18 Mechanical Ventilator 50 08/02/17 05:04 102 18 50 08/02/17 04:00 107 08/02/17 04:00 50 08/02/17 04:00 97.7 102 24 130/78 100 Mechanical Ventilator 50 97.7 08/02/17 02:32 110 19 50 08/02/17 00:57 103 19 50 08/02/17 00:00 102 08/02/17 00:00 97.5 105 19 146/81 100 Mechanical Ventilator 50 97.5 08/02/17 00:00 50 08/01/17 23:14 107 19 50 08/01/17 21:09 108 19 50 08/01/17 20:00 97.2 104 20 148/86 100 Mechanical Ventilator 50 97.2 08/01/17 20:00 105 08/01/17 20:00 50 08/01/17 19:17 104 19 50 08/01/17 19:16 104 19 Mechanical Ventilator 50 08/01/17 17:15 107 19 50 08/01/17 16:00 50 08/01/17 16:00 97.9 108 18 151/90 100 Mechanical Ventilator 50 97.9 08/01/17 15:31 108 08/01/17 15:21 102 18 50 08/01/17 13:23 108 18 50 08/01/17 12:00 50 08/01/17 12:00 97.7 99 18 142/83 100 Mechanical Ventilator 50 97.7 08/01/17 11:34 106 08/01/17 10:38 111 18 50 Status: awake Condition: critical HEENT: atraumatic Neck: full ROM Lungs: clear Heart: HR/BP stable, HR/BP unstable Abdomen: soft, non-tender Extremities: no C/C/E, edema Decubiti: location Micro: Microbiology Date/Time Source Procedure Growth Status 07/31/17 12:40 Blood Blood Culture - Preliminary NO GROWTH AFTER 24 HOURS Resulted 07/31/17 12:40 Blood Blood Culture - Preliminary NO GROWTH AFTER 24 HOURS Resulted 07/31/17 13:23 Nasal Nares MRSA Culture - Final NO METHICILLIN RESISTANT STAPH AUREUS... Complete 07/31/17 13:22 Nasal Nares Influenza Types A,B Antigen (SUBHASH) - Final Complete 08/01/17 18:00 Stool Clostridium difficile Toxin Assay - Final Complete 07/31/17 12:40 Urine,Clean Catch Urine Culture - Preliminary NO GROWTH AFTER 24 HOURS Resulted Accucheck: 131 Critical Care - Subjective ROS Limited/Unobtainable: Yes Condition: critical FI02: 50 Vent Support Breath Rate: 18 Vent Support Mode: AC Vent Tidal Volume: 550 Sputum Amount: Scant PEEP: 5.0 PIP: 20 Secretions: small Tube Feeding Amount: 30 I&O: Intake and Output 08/01/17 08/02/17 19:00 07:00 Intake Total 570.0 ml 530 ml Output Total 1750 ml Balance -1180.0 ml 530 ml IV Total 330.0 ml 55 ml Tube Feeding 120 ml 225 ml Blood Product 250 ml Other 120 ml Output Urine Total 1750 ml # Bowel Movements 4 CXR: no change Labs: Laboratory Tests Test 08/01/17 16:40 08/02/17 03:30 08/02/17 07:35 Vancomycin Level Trough 47.0 ug/mL (5.0-12.0) H White Blood Count 7.8 K/UL (4.8-10.8) 7.1 K/UL (4.8-10.8) Red Blood Count 2.65 M/UL (4.70-6.10) L 2.88 M/UL (4.70-6.10) L Hemoglobin 7.9 G/DL (14.2-18.0) L 8.3 G/DL (14.2-18.0) L Hematocrit 22.2 % (42.0-52.0) L 24.0 % (42.0-52.0) L Mean Corpuscular Volume 84 FL (80-99) 83 FL (80-99) Mean Corpuscular Hemoglobin 30.0 PG (27.0-31.0) 28.7 PG (27.0-31.0) Mean Corpuscular Hemoglobin Concent 35.7 G/DL (32.0-36.0) 34.6 G/DL (32.0-36.0) Red Cell Distribution Width 16.4 % (11.6-14.8) H 16.2 % (11.6-14.8) H Platelet Count 381 K/UL (150-450) 405 K/UL (150-450) Mean Platelet Volume 6.5 FL (6.5-10.1) 6.2 FL (6.5-10.1) L Neutrophils (%) (Auto) % (45.0-75.0) 64.2 % (45.0-75.0) Lymphocytes (%) (Auto) % (20.0-45.0) 19.7 % (20.0-45.0) L Monocytes (%) (Auto) % (1.0-10.0) 9.9 % (1.0-10.0) Eosinophils (%) (Auto) % (0.0-3.0) 5.1 % (0.0-3.0) H Basophils (%) (Auto) % (0.0-2.0) 1.1 % (0.0-2.0) Erythrocyte Sedimentation Rate 130 MM/HR (0-20) H Sodium Level 138 MMOL/L (136-145) 138 MMOL/L (136-145) Potassium Level 3.2 MMOL/L (3.5-5.1) L 3.5 MMOL/L (3.5-5.1) Chloride Level 105 MMOL/L (98-107) 106 MMOL/L (98-107) Carbon Dioxide Level 25 MMOL/L (21-32) 24 MMOL/L (21-32) Anion Gap 8 mmol/L (5-15) 8 mmol/L (5-15) Blood Urea Nitrogen 14 mg/dL (7-18) 14 mg/dL (7-18) Creatinine 1.0 MG/DL (0.55-1.30) 1.0 MG/DL (0.55-1.30) Estimat Glomerular Filtration Rate > 60 mL/min (>60) > 60 mL/min (>60) Glucose Level 110 MG/DL (74-106) H 105 MG/DL (74-106) Calcium Level 8.5 MG/DL (8.5-10.1) 8.7 MG/DL (8.5-10.1) Phosphorus Level 4.1 MG/DL (2.5-4.9) Magnesium Level 1.5 MG/DL (1.8-2.4) L 1.6 MG/DL (1.8-2.4) L Total Bilirubin 0.3 MG/DL (0.2-1.0) Aspartate Amino Transf (AST/SGOT) 20 U/L (15-37) Alanine Aminotransferase (ALT/SGPT) 11 U/L (12-78) L Alkaline Phosphatase 211 U/L (46-116) H C-Reactive Protein, Quantitative 8.8 mg/dL (0.00-0.90) H Total Protein 7.2 G/DL (6.4-8.2) Albumin 1.3 G/DL (3.4-5.0) L Globulin 5.9 g/dL Albumin/Globulin Ratio 0.2 (1.0-2.7) L Random Vancomycin Level 35.6 ug/mL NOEL MICHELLE Aug 02, 2017 10:28
[2017-08-02 12:00] VITALS: BP 139/80
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
[2017-08-02 16:00] VITALS: BP 136/84
--- NOTE | 2017-08-02 16:31 | Consultation ---
History of Present Illness General Date patient seen: Aug 02, 2017 Chief Complaint: Palpitations Reason for Consultation: sacral/hip wounds Present Illness HPI 62 year old male with multiple medical comoridities as noted below presented with possible pneumonia. Currently under care and management of medical teams and improving. was noted to have multiple ulcers present on admission. surgery called to evaluate and help with management of sacral/hip wounds. patient seen, chart reviewed, care initiated. Allergies: Coded Allergies: No Known Allergies (Unverified , 07/31/17) Medication History Scheduled Amiodarone Hcl* (Amiodarone Hcl*), 200 MG ORAL EVERY 12 HOURS, (Reported) Folic Acid* (Folic Acid*), 1 MG HE DAILY, (Reported) Levetiracetam* (Levetiracetam*), 250 MG GT BID, (Reported) Metronidazole* (Flagyl*), 500 MG ORAL EVERY 8 HOURS, (Reported) Pantoprazole* (Pantoprazole*), 40 MG GT DAILY, (Reported) Phenytoin Sodium Extended* (Dilantin*), 200 MG GT BEDTIME, (Reported) Scheduled PRN Albuterol Sulfate* (Albuterol Sulfate Hhn*), 3 ML INH Q4H PRN for Shortness of Breath, (Reported) Miscellaneous Medications Nut.tx.gluc.intoler,Lac-Fr,Soy (Glucerna 1.5 Toro), 1,000 ML GT, (Reported) Patient History History Provided By: Medical Record, PMD Healthcare decision maker N Resuscitation status Full Code Advanced Directive on File Past Medical/Surgical History Past Medical/Surgical History: (1) Sepsis (2) UTI (urinary tract infection) (3) Chronic respiratory failure (4) Encephalopathy (5) Feeding by G-tube (6) Pleural effusion, left (7) Pressure sore (8) Pressure ulcer Review of Systems ROS Narrative cannot obtain given patients medical condition Physical Exam General Appearance: no apparent distress HEENT: mucous membranes moist Neck: normal inspection Respiratory/Chest: on vent Cardiovascular/Chest: normal peripheral pulses Abdomen: non tender, soft Extremities: other - pressure ulcers noted Skin Exam: warm/dry Neurologic: unresponsiveness Physical Exam Narrative stage I sacral and hip decubitus ulcers noted. Last 24 Hour Vital Signs Date Time Temp Pulse Resp B/P (MAP) Pulse Ox O2 Delivery O2 Flow Rate FiO2 08/02/17 16:00 50 08/02/17 14:42 99 18 50 08/02/17 12:41 98 18 50 08/02/17 12:02 99 08/02/17 12:00 50 08/02/17 12:00 97.9 100 18 139/80 100 Mechanical Ventilator 50 97.9 08/02/17 10:47 99 18 50 08/02/17 08:58 96 18 50 08/02/17 08:00 98.1 101 18 144/87 100 Mechanical Ventilator 50 98.1 08/02/17 08:00 50 08/02/17 07:49 94 08/02/17 06:46 94 18 50 08/02/17 06:46 94 18 Mechanical Ventilator 50 08/02/17 05:04 102 18 50 08/02/17 04:00 107 08/02/17 04:00 50 08/02/17 04:00 97.7 102 24 130/78 100 Mechanical Ventilator 50 97.7 08/02/17 02:32 110 19 50 08/02/17 00:57 103 19 50 08/02/17 00:00 102 08/02/17 00:00 97.5 105 19 146/81 100 Mechanical Ventilator 50 97.5 08/02/17 00:00 50 08/01/17 23:14 107 19 50 08/01/17 21:09 108 19 50 08/01/17 20:00 97.2 104 20 148/86 100 Mechanical Ventilator 50 97.2 08/01/17 20:00 105 08/01/17 20:00 50 08/01/17 19:17 104 19 50 08/01/17 19:16 104 19 Mechanical Ventilator 50 08/01/17 17:15 107 19 50 Intake and Output 08/01/17 08/02/17 19:00 07:00 Intake Total 570.0 ml 530 ml Output Total 1750 ml Balance -1180.0 ml 530 ml IV Total 330.0 ml 55 ml Tube Feeding 120 ml 225 ml Blood Product 250 ml Other 120 ml Output Urine Total 1750 ml # Bowel Movements 4 Laboratory Tests Test 08/01/17 16:40 08/02/17 03:30 08/02/17 07:35 Vancomycin Level Trough 47.0 ug/mL (5.0-12.0) H White Blood Count 7.8 K/UL (4.8-10.8) 7.1 K/UL (4.8-10.8) Red Blood Count 2.65 M/UL (4.70-6.10) L 2.88 M/UL (4.70-6.10) L Hemoglobin 7.9 G/DL (14.2-18.0) L 8.3 G/DL (14.2-18.0) L Hematocrit 22.2 % (42.0-52.0) L 24.0 % (42.0-52.0) L Mean Corpuscular Volume 84 FL (80-99) 83 FL (80-99) Mean Corpuscular Hemoglobin 30.0 PG (27.0-31.0) 28.7 PG (27.0-31.0) Mean Corpuscular Hemoglobin Concent 35.7 G/DL (32.0-36.0) 34.6 G/DL (32.0-36.0) Red Cell Distribution Width 16.4 % (11.6-14.8) H 16.2 % (11.6-14.8) H Platelet Count 381 K/UL (150-450) 405 K/UL (150-450) Mean Platelet Volume 6.5 FL (6.5-10.1) 6.2 FL (6.5-10.1) L Neutrophils (%) (Auto) % (45.0-75.0) 64.2 % (45.0-75.0) Lymphocytes (%) (Auto) % (20.0-45.0) 19.7 % (20.0-45.0) L Monocytes (%) (Auto) % (1.0-10.0) 9.9 % (1.0-10.0) Eosinophils (%) (Auto) % (0.0-3.0) 5.1 % (0.0-3.0) H Basophils (%) (Auto) % (0.0-2.0) 1.1 % (0.0-2.0) Erythrocyte Sedimentation Rate 130 MM/HR (0-20) H Sodium Level 138 MMOL/L (136-145) 138 MMOL/L (136-145) Potassium Level 3.2 MMOL/L (3.5-5.1) L 3.5 MMOL/L (3.5-5.1) Chloride Level 105 MMOL/L (98-107) 106 MMOL/L (98-107) Carbon Dioxide Level 25 MMOL/L (21-32) 24 MMOL/L (21-32) Anion Gap 8 mmol/L (5-15) 8 mmol/L (5-15) Blood Urea Nitrogen 14 mg/dL (7-18) 14 mg/dL (7-18) Creatinine 1.0 MG/DL (0.55-1.30) 1.0 MG/DL (0.55-1.30) Estimat Glomerular Filtration Rate > 60 mL/min (>60) > 60 mL/min (>60) Glucose Level 110 MG/DL (74-106) H 105 MG/DL (74-106) Calcium Level 8.5 MG/DL (8.5-10.1) 8.7 MG/DL (8.5-10.1) Phosphorus Level 4.1 MG/DL (2.5-4.9) Magnesium Level 1.5 MG/DL (1.8-2.4) L 1.6 MG/DL (1.8-2.4) L Total Bilirubin 0.3 MG/DL (0.2-1.0) Aspartate Amino Transf (AST/SGOT) 20 U/L (15-37) Alanine Aminotransferase (ALT/SGPT) 11 U/L (12-78) L Alkaline Phosphatase 211 U/L (46-116) H C-Reactive Protein, Quantitative 8.8 mg/dL (0.00-0.90) H Total Protein 7.2 G/DL (6.4-8.2) Albumin 1.3 G/DL (3.4-5.0) L Globulin 5.9 g/dL Albumin/Globulin Ratio 0.2 (1.0-2.7) L Random Vancomycin Level 35.6 ug/mL Microbiology Date/Time Source Procedure Growth Status 08/01/17 18:00 Stool Clostridium difficile Toxin Assay - Final Complete Height (Feet): 6 Height (Inches): 0.00 Weight (Pounds): 132 Medications Current Medications Medications (Trade) Dose Ordered Sig/Serena Route PRN Reason Start Time Stop Time Status Last Admin Dose Admin Acetaminophen (Tylenol) 650 mg Q4H PRN ORAL FEVER 07/31/17 17:00 08/30/17 16:59 Albuterol/ Ipratropium (Albuterol/ Ipratropium) 3 ml Q4H PRN HHN Shortness of Breath 07/31/17 17:00 08/05/17 16:59 Amiodarone HCl (Cordarone) 200 mg EVERY 12 HOURS GT 07/31/17 21:00 08/30/17 20:59 08/02/17 09:28 Cefepime HCl 2 gm/ Sodium Chloride 55 ml @ 110 mls/hr Q12H IVPB 08/01/17 13:00 08/08/17 23:59 08/02/17 13:30 Chlorhexidine Gluconate (Ngoc-Hex 2%) 1 applic DAILY@2000 TOPIC 07/31/17 20:00 08/30/17 19:59 08/01/17 20:35 Dextrose (Dextrose 50%) STAT PRN IV Hypoglycemia 07/31/17 17:00 08/30/17 16:59 Heparin Sodium (Porcine) (Heparin 5000 units/ml) 5,000 units EVERY 12 HOURS SUBQ 07/31/17 21:00 08/30/17 20:59 08/02/17 09:43 Heparin Sodium/ Sodium Chloride (Heparin 2000 units/Ns 1000ml premix) 2,000 unit ONCE PRN INJ PICC PLACEMENT 08/03/17 09:00 09/02/17 08:59 Levetiracetam (Keppra) 250 mg BID GT 07/31/17 18:00 08/30/17 17:59 08/02/17 09:28 Lidocaine (Xylocaine 1% MPF 5ml) 30 ml ONCE PRN INJ PICC PLACEMENT 08/03/17 09:00 09/02/17 08:59 Lorazepam (Ativan 2mg/ml 1ml) 2 mg Q2H PRN IV For Anxiety 07/31/17 17:00 08/07/17 16:59 Morphine Sulfate (Morphine Sulfate) 4 mg Q4H PRN IVP Severe Pain (Pain Scale 7-10) 07/31/17 17:00 08/07/17 16:59 Ondansetron HCl (Zofran) 4 mg Q6H PRN IVP Nausea & Vomiting 07/31/17 17:00 08/30/17 16:59 Pantoprazole (Protonix) 40 mg DAILY IV 2/26/18 09:00 08/31/17 08:59 08/02/17 09:28 Phenytoin (Dilantin) 200 mg BEDTIME GT 07/31/17 21:00 08/30/17 20:59 08/01/17 20:36 Polyethylene Glycol (Miralax) 17 gm DAILYPRN PRN ORAL Constipation 07/31/17 17:00 08/30/17 16:59 Vancomycin HCl (Vanco rx to dose) 1 ea DAILYPRN PRN MISC RX TO DOSE PROTOCOL 07/31/17 17:30 08/30/17 17:29 Assessment/Plan Problem List: (1) Pressure ulcer Assessment & Plan: sacral ulcers with epidermal abrasions, no necrotic tissue or dermal breakdown at this time. likely pressure in nature. can progress recommend dressings and skin barrier as currently being placed turn q2h keep pressure off wounds unfortunately given patients condition will need aggressive prevention or will progress. fortunately great nursing care being provided and currently stable. thank you for this consultation. will follow with recs. ICD Codes: L89.90 - Pressure ulcer of unspecified site, unspecified stage SNOMED: [id number] Qualifiers: Qualified Codes: L89.151 - Pressure ulcer of sacral region, stage 1 Status: stable CadenbrynnJesus Aug 02, 2017 16:30
--- NOTE | 2017-08-02 17:23 | Podiatric Progress Note ---
Assessment/Plan Patient Lokesh Hartman is a 62 year old male who was admitted on Jul 31, 2017 at 16:36 with Problems: Assessment/Plan / 1) Multiple bilateral lower extremity ulcers - likely ischemic in nature 2) Knee contractures flexible 3) Abnormal mobility 2/2 CVA P/ 1) Cont foam dressings to lower extremity. No surgical intervention at this time. 2) Cont heel protectors 3) Arterial ultz of BLE pending 4) CRP and ESR elevated, osteomyelitis? Bone scan ordered 5) Cont abx per ID 6) PT to mobilize knees to prevent rigid knee contractures Subjective Allergies: Coded Allergies: No Known Allergies (Unverified , 07/31/17) Subjective Nonverbal Objective Exam Last 24 Hour Vital Signs Date Time Temp Pulse Resp B/P (MAP) Pulse Ox O2 Delivery O2 Flow Rate FiO2 08/02/17 16:00 50 08/02/17 16:00 98.2 100 18 136/84 100 Mechanical Ventilator 50 98.2 08/02/17 14:42 99 18 50 08/02/17 12:41 98 18 50 08/02/17 12:02 99 08/02/17 12:00 50 08/02/17 12:00 97.9 100 18 139/80 100 Mechanical Ventilator 50 97.9 08/02/17 10:47 99 18 50 08/02/17 08:58 96 18 50 08/02/17 08:00 98.1 101 18 144/87 100 Mechanical Ventilator 50 98.1 08/02/17 08:00 50 08/02/17 07:49 94 08/02/17 06:46 94 18 50 08/02/17 06:46 94 18 Mechanical Ventilator 50 08/02/17 05:04 102 18 50 08/02/17 04:00 107 08/02/17 04:00 50 08/02/17 04:00 97.7 102 24 130/78 100 Mechanical Ventilator 50 97.7 08/02/17 02:32 110 19 50 08/02/17 00:57 103 19 50 08/02/17 00:00 102 08/02/17 00:00 97.5 105 19 146/81 100 Mechanical Ventilator 50 97.5 08/02/17 00:00 50 08/01/17 23:14 107 19 50 08/01/17 21:09 108 19 50 08/01/17 20:00 97.2 104 20 148/86 100 Mechanical Ventilator 50 97.2 08/01/17 20:00 105 08/01/17 20:00 50 08/01/17 19:17 104 19 50 08/01/17 19:16 104 19 Mechanical Ventilator 50 Laboratory Tests Test 08/02/17 03:30 08/02/17 07:35 White Blood Count 7.8 K/UL (4.8-10.8) 7.1 K/UL (4.8-10.8) Red Blood Count 2.65 M/UL (4.70-6.10) L 2.88 M/UL (4.70-6.10) L Hemoglobin 7.9 G/DL (14.2-18.0) L 8.3 G/DL (14.2-18.0) L Hematocrit 22.2 % (42.0-52.0) L 24.0 % (42.0-52.0) L Mean Corpuscular Volume 84 FL (80-99) 83 FL (80-99) Mean Corpuscular Hemoglobin 30.0 PG (27.0-31.0) 28.7 PG (27.0-31.0) Mean Corpuscular Hemoglobin Concent 35.7 G/DL (32.0-36.0) 34.6 G/DL (32.0-36.0) Red Cell Distribution Width 16.4 % (11.6-14.8) H 16.2 % (11.6-14.8) H Platelet Count 381 K/UL (150-450) 405 K/UL (150-450) Mean Platelet Volume 6.5 FL (6.5-10.1) 6.2 FL (6.5-10.1) L Neutrophils (%) (Auto) % (45.0-75.0) 64.2 % (45.0-75.0) Lymphocytes (%) (Auto) % (20.0-45.0) 19.7 % (20.0-45.0) L Monocytes (%) (Auto) % (1.0-10.0) 9.9 % (1.0-10.0) Eosinophils (%) (Auto) % (0.0-3.0) 5.1 % (0.0-3.0) H Basophils (%) (Auto) % (0.0-2.0) 1.1 % (0.0-2.0) Erythrocyte Sedimentation Rate 130 MM/HR (0-20) H Sodium Level 138 MMOL/L (136-145) 138 MMOL/L (136-145) Potassium Level 3.2 MMOL/L (3.5-5.1) L 3.5 MMOL/L (3.5-5.1) Chloride Level 105 MMOL/L (98-107) 106 MMOL/L (98-107) Carbon Dioxide Level 25 MMOL/L (21-32) 24 MMOL/L (21-32) Anion Gap 8 mmol/L (5-15) 8 mmol/L (5-15) Blood Urea Nitrogen 14 mg/dL (7-18) 14 mg/dL (7-18) Creatinine 1.0 MG/DL (0.55-1.30) 1.0 MG/DL (0.55-1.30) Estimat Glomerular Filtration Rate > 60 mL/min (>60) > 60 mL/min (>60) Glucose Level 110 MG/DL (74-106) H 105 MG/DL (74-106) Calcium Level 8.5 MG/DL (8.5-10.1) 8.7 MG/DL (8.5-10.1) Phosphorus Level 4.1 MG/DL (2.5-4.9) Magnesium Level 1.5 MG/DL (1.8-2.4) L 1.6 MG/DL (1.8-2.4) L Total Bilirubin 0.3 MG/DL (0.2-1.0) Aspartate Amino Transf (AST/SGOT) 20 U/L (15-37) Alanine Aminotransferase (ALT/SGPT) 11 U/L (12-78) L Alkaline Phosphatase 211 U/L (46-116) H C-Reactive Protein, Quantitative 8.8 mg/dL (0.00-0.90) H Total Protein 7.2 G/DL (6.4-8.2) Albumin 1.3 G/DL (3.4-5.0) L Globulin 5.9 g/dL Albumin/Globulin Ratio 0.2 (1.0-2.7) L Random Vancomycin Level 35.6 ug/mL Microbiology Date/Time Source Procedure Growth Status 07/31/17 12:40 Blood Blood Culture - Preliminary Resulted 08/01/17 01:00 Sputum Gram Stain - Final Resulted 08/01/17 01:00 Sputum Sputum Culture Pending Resulted 08/01/17 18:00 Stool Clostridium difficile Toxin Assay - Final Complete 07/31/17 12:40 Urine,Clean Catch Urine Culture - Preliminary NO GROWTH AFTER 24 HOURS Resulted 08/01/17 03:00 Sacral Wound Gram Stain - Final Resulted 08/01/17 03:00 Sacral Wound Wound Culture Pending Resulted Dermatological Wound Assessment : Exudate Amount: None Dermatological Narrative exam unchanged Tex Prajapati DPM Aug 02, 2017 17:23
[2017-08-02 20:00] VITALS: BP 133/83
[2017-08-02] MEDS: Dyna-Hex 2% Top Sol 2oz TOPIC SCH (21:12)
[2017-08-02] MEDS: Phenytoin Susp 100mg/4ml GT SCH (21:12)
[2017-08-03] VITALS: BP 145/78
[2017-08-03] MEDS: Cefepime HCl 2 GM in NS 55 ML IVPB SCH ×2 (02:00→13:10)
[2017-08-03 04:00] VITALS: BP 145/87
[2017-08-03 04:55] LABS: BASOPHILS % (AUTO) 1.2 % (0.0-2.0); EOSINOPHILS % (AUTO) 5.2 % (0.0-3.0); HEMATOCRIT 21.8 % (42.0-52.0); LYMPHOCYTES % (AUTO) 19.2 % (20.0-45.0); MEAN CORPUSCULAR VOLUME 83 FL (80-99); NEUTROPHILS % (AUTO) 66.3 % (45.0-75.0); PLATELET COUNT 435 K/UL (150-450); RED BLOOD COUNT 2.63 M/UL (4.70-6.10); RED CELL DISTRIBUTION WIDTH 16.1 % (11.6-14.8); WHITE BLOOD COUNT 8.2 K/UL (4.8-10.8)
[2017-08-03 05:10] LABS: ALANINE AMINOTRANSFERASE 10 U/L (12-78); ALBUMIN 1.3 G/DL (3.4-5.0); ALBUMIN/GLOBULIN RATIO 0.2 (1.0-2.7); ALKALINE PHOSPHATASE 214 U/L (46-116); ANION GAP 10 mmol/L (5-15); ASPARTATE AMINO TRANSFERASE 20 U/L (15-37); BILIRUBIN,TOTAL 0.3 MG/DL (0.2-1.0); BLOOD UREA NITROGEN 12 mg/dL (7-18); CALCIUM 8.5 MG/DL (8.5-10.1); CARBON DIOXIDE 23 MMOL/L (21-32); CHLORIDE 105 MMOL/L (98-107); POTASSIUM 3.2 MMOL/L (3.5-5.1); SODIUM 138 MMOL/L (136-145)
[2017-08-03 08:00] VITALS: BP 145/89
[2017-08-03] MEDS ORDERED: Heparin 2000 units/Ns 1000ml INJ PRN (09:00)
[2017-08-03] MEDS: Heparin 5000 units/ml inj SUBQ SCH ×2 (09:00→21:43)
[2017-08-03] MEDS ORDERED: Lidocaine 1% MPF 10mg/ml 5ml INJ PRN (09:00)
[2017-08-03] MEDS: Amiodarone 200mg tab GT SCH ×2 (09:06→21:41)
[2017-08-03] MEDS: Pantoprazole Inj IV SCH (09:06)
[2017-08-03] MEDS: levETIRAcetam 500mg/5ml Liquid GT SCH ×2 (09:06→18:24)
--- NOTE | 2017-08-03 09:37 | Diagnostic Imaging Report ---
Indication: Dyspnea Technique: One view of the chest Comparison: 07/31/2017 Findings: There is increased right basilar opacity, likely, patient pleural fluid and parenchymal consolidation. Left basilar infiltrate and pleural fluid appears minimally increased. The heart size is normal. Right arm PICC, tracheostomy remain Impression: Considerably worse pleural and parenchymal disease on the right. Slightly worse in pleural and parenchymal disease on the left, over 3 days
--- NOTE | 2017-08-03 10:47 | Infectious Diseases Prog Note ---
Assessment/Plan Assessment/Plan ASSESSMENT: The patient is a 62-year-old male with: Blood Cx: GPC probable line infection ( PICC from out side facility ) Leukocytosis, SP Fever, SP Diarrhea Clostridium difficile: Neg ? ventilatory-associated pneumonia Scx: GNR (chest x-ray:Considerably worse pleural and parenchymal disease on the right. Slightly worse in pleural and parenchymal disease on the left, over 3 days ) Elevated alkaline phosphatase rule out biliary disease. Influenza: Neg Multiple decubitus of lower extremity. Left heel unstageable decubitus (no purulent discharge.) Sacral Wnd : mixed growth ( Colonizer ) Diabetes. Anemia. GERD. Hypertension. History of TBI. Seizure disorder PLAN: continue the patient on IV vancomycin and cefepime day # 4 Monitor blood cultures ( repeat) Sputum culture. Ultrasound of the abdomen, rule out biliary disease. Monitor chest x-ray. Bone scan ESR , CRP DC PICC Subjective Allergies: Coded Allergies: No Known Allergies (Unverified , 07/31/17) Subjective Afebrile Objective Vital Signs Last 24 Hour Vital Signs Date Time Temp Pulse Resp B/P (MAP) Pulse Ox O2 Delivery O2 Flow Rate FiO2 08/03/17 08:41 92 18 50 08/03/17 08:00 97.7 94 16 145/89 100 Mechanical Ventilator 50 97.7 08/03/17 08:00 50 08/03/17 07:34 92 08/03/17 06:45 91 18 50 08/03/17 05:19 89 18 60 08/03/17 04:00 98.4 96 18 145/87 100 Mechanical Ventilator 50 98.4 08/03/17 04:00 50 08/03/17 04:00 102 08/03/17 03:45 99 18 60 08/03/17 01:29 104 18 60 08/03/17 00:00 50 08/03/17 00:00 95 08/03/17 00:00 98.4 100 18 145/78 100 Mechanical Ventilator 50 98.4 08/02/17 22:55 98 18 60 08/02/17 20:35 101 18 60 08/02/17 20:00 97.7 100 18 133/83 100 Mechanical Ventilator 50 97.7 08/02/17 20:00 50 08/02/17 20:00 101 08/02/17 19:35 92 18 60 08/02/17 17:28 96 18 50 08/02/17 16:00 50 08/02/17 16:00 98.2 100 18 136/84 100 Mechanical Ventilator 50 98.2 08/02/17 15:59 99 08/02/17 14:42 99 18 50 08/02/17 12:41 98 18 50 08/02/17 12:02 99 08/02/17 12:00 50 08/02/17 12:00 97.9 100 18 139/80 100 Mechanical Ventilator 50 97.9 08/02/17 10:47 99 18 50 Height (Feet): 6 Height (Inches): 0.00 Weight (Pounds): 151 HEENT: anicteric Respiratory/Chest: normal breath sounds Cardiovascular: regular rhythm Abdomen: non distended Microbiology Date/Time Source Procedure Growth Status 07/31/17 12:40 Blood Blood Culture - Preliminary Resulted 07/31/17 12:40 Blood Blood Culture - Preliminary Staphylococcus Species Resulted 08/02/17 17:45 Nasopharynx Influenza Types A,B Antigen (SUBHASH) - Final Complete 08/01/17 01:00 Sputum Gram Stain - Final Resulted 08/01/17 01:00 Sputum Culture - Preliminary Gram Negative Bacillus 1 Resulted 07/31/17 13:23 Nasal Nares MRSA Culture - Final NO METHICILLIN RESISTANT STAPH AUREUS... Complete 07/31/17 13:22 Nasal Nares Influenza Types A,B Antigen (SUBHASH) - Final Complete 08/01/17 18:00 Stool Clostridium difficile Toxin Assay - Final Complete 07/31/17 12:40 Urine,Clean Catch Urine Culture - Final NO GROWTH AFTER 48 HOURS Complete 08/01/17 03:00 Sacral Wound Gram Stain - Final Resulted 08/01/17 03:00 Wound Culture - Preliminary Gram Negative Bacillus 1 Gram Negative Bacillus 2 Diann Albicans Resulted Laboratory Tests Test 08/03/17 03:35 08/03/17 04:00 White Blood Count 8.2 K/UL (4.8-10.8) Red Blood Count 2.63 M/UL (4.70-6.10) L Hemoglobin 8.0 G/DL (14.2-18.0) L Hematocrit 21.8 % (42.0-52.0) L Mean Corpuscular Volume 83 FL (80-99) Mean Corpuscular Hemoglobin 30.4 PG (27.0-31.0) Mean Corpuscular Hemoglobin Concent 36.7 G/DL (32.0-36.0) H Red Cell Distribution Width 16.1 % (11.6-14.8) H Platelet Count 435 K/UL (150-450) Mean Platelet Volume 6.1 FL (6.5-10.1) L Neutrophils (%) (Auto) 66.3 % (45.0-75.0) Lymphocytes (%) (Auto) 19.2 % (20.0-45.0) L Monocytes (%) (Auto) 8.0 % (1.0-10.0) Eosinophils (%) (Auto) 5.2 % (0.0-3.0) H Basophils (%) (Auto) 1.2 % (0.0-2.0) Sodium Level 138 MMOL/L (136-145) Potassium Level 3.2 MMOL/L (3.5-5.1) L Chloride Level 105 MMOL/L (98-107) Carbon Dioxide Level 23 MMOL/L (21-32) Anion Gap 10 mmol/L (5-15) Blood Urea Nitrogen 12 mg/dL (7-18) Creatinine 1.0 MG/DL (0.55-1.30) Estimat Glomerular Filtration Rate > 60 mL/min (>60) Glucose Level 99 MG/DL (74-106) Calcium Level 8.5 MG/DL (8.5-10.1) Total Bilirubin 0.3 MG/DL (0.2-1.0) Aspartate Amino Transf (AST/SGOT) 20 U/L (15-37) Alanine Aminotransferase (ALT/SGPT) 10 U/L (12-78) L Alkaline Phosphatase 214 U/L (46-116) H Pro-B-Type Natriuretic Peptide 4906 pg/mL (0-125) H Total Protein 7.3 G/DL (6.4-8.2) Albumin 1.3 G/DL (3.4-5.0) L Globulin 6.0 g/dL Albumin/Globulin Ratio 0.2 (1.0-2.7) L Magnesium Level 1.9 MG/DL (1.8-2.4) Current Medications Medications (Trade) Dose Ordered Sig/Serena Route PRN Reason Start Time Stop Time Status Last Admin Dose Admin Acetaminophen (Tylenol) 650 mg Q4H PRN ORAL FEVER 07/31/17 17:00 08/30/17 16:59 Albuterol/ Ipratropium (Albuterol/ Ipratropium) 3 ml Q4H PRN HHN Shortness of Breath 07/31/17 17:00 08/05/17 16:59 Amiodarone HCl (Cordarone) 200 mg EVERY 12 HOURS GT 07/31/17 21:00 08/30/17 20:59 08/03/17 09:06 Cefepime HCl 2 gm/ Sodium Chloride 55 ml @ 110 mls/hr Q12H IVPB 08/01/17 13:00 08/08/17 23:59 08/03/17 02:00 Chlorhexidine Gluconate (Ngoc-Hex 2%) 1 applic DAILY@2000 TOPIC 07/31/17 20:00 08/30/17 19:59 08/02/17 21:12 Dextrose (Dextrose 50%) STAT PRN IV Hypoglycemia 07/31/17 17:00 08/30/17 16:59 Heparin Sodium (Porcine) (Heparin 5000 units/ml) 5,000 units EVERY 12 HOURS SUBQ 07/31/17 21:00 08/30/17 20:59 08/02/17 21:14 Heparin Sodium/ Sodium Chloride (Heparin 2000 units/Ns 1000ml premix) 2,000 unit ONCE PRN INJ PICC PLACEMENT 08/03/17 09:00 09/02/17 08:59 Levetiracetam (Keppra) 250 mg BID GT 07/31/17 18:00 08/30/17 17:59 08/03/17 09:06 Lidocaine (Xylocaine 1% MPF 5ml) 30 ml ONCE PRN INJ PICC PLACEMENT 08/03/17 09:00 09/02/17 08:59 Lorazepam (Ativan 2mg/ml 1ml) 2 mg Q2H PRN IV For Anxiety 07/31/17 17:00 08/07/17 16:59 Morphine Sulfate (Morphine Sulfate) 4 mg Q4H PRN IVP Severe Pain (Pain Scale 7-10) 07/31/17 17:00 08/07/17 16:59 Ondansetron HCl (Zofran) 4 mg Q6H PRN IVP Nausea & Vomiting 07/31/17 17:00 08/30/17 16:59 Pantoprazole (Protonix) 40 mg DAILY IV 08/01/17 09:00 08/31/17 08:59 08/03/17 09:06 Phenytoin (Dilantin) 200 mg BEDTIME GT 07/31/17 21:00 08/30/17 20:59 08/02/17 21:12 Polyethylene Glycol (Miralax) 17 gm DAILYPRN PRN ORAL Constipation 07/31/17 17:00 08/30/17 16:59 Vancomycin HCl (Vanco rx to dose) 1 ea DAILYPRN PRN MISC RX TO DOSE PROTOCOL 07/31/17 17:30 08/30/17 17:29 KRYSTIN JAQUEZ M.D. Aug 03, 2017 10:47
--- NOTE | 2017-08-03 11:35 | Diagnostic Imaging Report ---
Indications: Needs long-term IV access Technique: Procedure performed at bedside. Procedural timeout performed. Ultrasound confirms patent compressible left brachial vein. Total sterile technique, including sterile probe cover and sterile gel, sterile gloves, hand hygiene, hat, mask,, sterile gown, large sterile drape, and preparation with 2% chlorhexidine utilized. Local anesthesia with 1% lidocaine. Under real-time ultrasound guidance, puncture brachial vein using 21-gauge needle, passage 0.018 guidewire, exchange for 5 Icelandic peel-away sheath. 5 [place] Bard dual-lumen power PICC cut to 42 cm. It was inserted through the peel-away sheath. Peel-away sheath and guidewire removed. Catheter fixed to the skin. Both catheter ports aspirated and flushed. Patient tolerated procedure well, without immediate complication. Followup chest x-ray obtained, documents catheter tip position at the high right atrium. Also noted on the chest radiograph or bilateral pleural effusions and infiltrates which are unchanged from 3 hours earlier Impression: Successful bedside placement of left arm PICC under sonographic guidance, as described above.
--- NOTE | 2017-08-03 11:53 | Pulmonology Progress Note ---
Assessment/Plan Assessment/Plan ASSESSMENT Sepsis Chronic respiratory failure/VDRF with trach status Probably VAP Acute OM L calcaneus Dysphagia, Feeding by G-tube seizure disorder functional quadriplegia multiple decub POA: sacral, L heel DM HTN hypokalemia PLAN OF CARE FARZANA vent/trach care, baseline ABG and titrate settings as needed CXR worse this am pulmonary toilet, suctioning, abx fup with CXR in am abx, ID follows prob VAP, sputum cx + GNR influenza negative, blood x + Staph likely due to line infection, old PICC dc, new PICC inserted today bone scan + high suspicion for acute OM L calcaneus, will need senior care abx - per ID management' wound care as per wound nurse recs podiatry eval noted and appreciated seizure precautions continue Keppra DVT GI prophylaxis replace K, Mg checked, stable Venous Duplex LE negative BP BS monitoring and management bowel regimen supportive care case discussed and evaluated by supervising physician Subjective Allergies: Coded Allergies: No Known Allergies (Unverified , 07/31/17) Subjective leukocytosis resolved, afebrile no signs of resp distress on current settings K-3.2 Objective Last 24 Hour Vital Signs Date Time Temp Pulse Resp B/P (MAP) Pulse Ox O2 Delivery O2 Flow Rate FiO2 08/03/17 10:47 91 18 50 08/03/17 08:41 92 18 50 08/03/17 08:00 97.7 94 16 145/89 100 Mechanical Ventilator 50 97.7 08/03/17 08:00 50 08/03/17 07:34 92 08/03/17 06:45 91 18 50 08/03/17 05:19 89 18 60 08/03/17 04:00 98.4 96 18 145/87 100 Mechanical Ventilator 50 98.4 08/03/17 04:00 50 08/03/17 04:00 102 08/03/17 03:45 99 18 60 08/03/17 01:29 104 18 60 08/03/17 00:00 50 08/03/17 00:00 95 08/03/17 00:00 98.4 100 18 145/78 100 Mechanical Ventilator 50 98.4 08/02/17 22:55 98 18 60 08/02/17 20:35 101 18 60 08/02/17 20:00 97.7 100 18 133/83 100 Mechanical Ventilator 50 97.7 08/02/17 20:00 50 08/02/17 20:00 101 08/02/17 19:35 92 18 60 08/02/17 17:28 96 18 50 08/02/17 16:00 50 08/02/17 16:00 98.2 100 18 136/84 100 Mechanical Ventilator 50 98.2 08/02/17 15:59 99 08/02/17 14:42 99 18 50 08/02/17 12:41 98 18 50 08/02/17 12:02 99 08/02/17 12:00 50 08/02/17 12:00 97.9 100 18 139/80 100 Mechanical Ventilator 50 97.9 Intake and Output 08/02/17 08/03/17 19:00 07:00 Intake Total 610 ml 685 ml Output Total 750 ml 1000 ml Balance -140 ml -315 ml IV Total 55 ml 210 ml Tube Feeding 435 ml 385 ml Other 120 ml 90 ml Output Urine Total 750 ml 1000 ml # Bowel Movements 2 1 General Appearance: no acute distress, other - bedriden, vent [id number] male in NAD on Vent AC 550-18-50% PEEP 5 HEENT: status post trach - Shiley#[id number], secretions small yellow, thin Respiratory/Chest: no respiratory distress, rhonchi Cardiovascular: normal rate, regular rhythm - SR on tele, other - PICC intact Abdomen: normal bowel sounds, soft, non tender, other - G tube Skin: other - L heel and sacral deub POA Neurologic/Psychiatric: abnormal gait, other - contracted, poorly responsive4 Microbiology Date/Time Source Procedure Growth Status 07/31/17 12:40 Blood Blood Culture - Preliminary Resulted 07/31/17 12:40 Blood Blood Culture - Preliminary Staphylococcus Species Resulted 08/02/17 17:45 Nasopharynx Influenza Types A,B Antigen (SUBHASH) - Final Complete 08/01/17 01:00 Sputum Gram Stain - Final Resulted 08/01/17 01:00 Sputum Culture - Preliminary Gram Negative Bacillus 1 Resulted 07/31/17 13:23 Nasal Nares MRSA Culture - Final NO METHICILLIN RESISTANT STAPH AUREUS... Complete 07/31/17 13:22 Nasal Nares Influenza Types A,B Antigen (SUBHASH) - Final Complete 08/01/17 18:00 Stool Clostridium difficile Toxin Assay - Final Complete 07/31/17 12:40 Urine,Clean Catch Urine Culture - Final NO GROWTH AFTER 48 HOURS Complete 08/01/17 03:00 Sacral Wound Gram Stain - Final Resulted 08/01/17 03:00 Wound Culture - Preliminary Gram Negative Bacillus 1 Gram Negative Bacillus 2 Diann Albicans Resulted Laboratory Tests 08/03/17 03:35: White Blood Count 8.2, Red Blood Count 2.63L, Hemoglobin 8.0L, Hematocrit 21.8L , Mean Corpuscular Volume 83, Mean Corpuscular Hemoglobin 30.4, Mean Corpuscular Hemoglobin Concent 36.7H, Red Cell Distribution Width 16.1H, Platelet Count 435, Mean Platelet Volume 6.1L, Neutrophils (%) (Auto) 66.3, Lymphocytes (%) (Auto) 19.2L, Monocytes (%) (Auto) 8.0, Eosinophils (%) (Auto) 5.2H, Basophils (%) (Auto) 1.2, Sodium Level 138, Potassium Level 3.2L, Chloride Level 105, Carbon Dioxide Level 23, Anion Gap 10, Blood Urea Nitrogen 12, Creatinine 1.0, Estimat Glomerular Filtration Rate > 60, Glucose Level 99, Calcium Level 8.5, Total Bilirubin 0.3, Aspartate Amino Transf (AST/SGOT) 20, Alanine Aminotransferase (ALT/SGPT) 10L, Alkaline Phosphatase 214H, Pro-B-Type Natriuretic Peptide 4906H, Total Protein 7.3, Albumin 1.3L, Globulin 6.0, Albumin/Globulin Ratio 0.2L 08/03/17 04:00: Magnesium Level 1.9 Current Medications Medications (Trade) Dose Ordered Sig/Serena Route PRN Reason Start Time Stop Time Status Last Admin Dose Admin Acetaminophen (Tylenol) 650 mg Q4H PRN ORAL FEVER 07/31/17 17:00 08/30/17 16:59 Albuterol/ Ipratropium (Albuterol/ Ipratropium) 3 ml Q4H PRN HHN Shortness of Breath 07/31/17 17:00 08/05/17 16:59 Amiodarone HCl (Cordarone) 200 mg EVERY 12 HOURS GT 07/31/17 21:00 08/30/17 20:59 08/03/17 09:06 Cefepime HCl 2 gm/ Sodium Chloride 55 ml @ 110 mls/hr Q12H IVPB 08/01/17 13:00 08/08/17 23:59 08/03/17 02:00 Chlorhexidine Gluconate (Ngoc-Hex 2%) 1 applic DAILY@2000 TOPIC 07/31/17 20:00 08/30/17 19:59 08/02/17 21:12 Dextrose (Dextrose 50%) STAT PRN IV Hypoglycemia 07/31/17 17:00 08/30/17 16:59 Heparin Sodium (Porcine) (Heparin 5000 units/ml) 5,000 units EVERY 12 HOURS SUBQ 07/31/17 21:00 08/30/17 20:59 08/02/17 21:14 Heparin Sodium/ Sodium Chloride (Heparin 2000 units/Ns 1000ml premix) 2,000 unit ONCE PRN INJ PICC PLACEMENT 08/03/17 09:00 09/02/17 08:59 Levetiracetam (Keppra) 250 mg BID GT 07/31/17 18:00 08/30/17 17:59 08/03/17 09:06 Lidocaine (Xylocaine 1% MPF 5ml) 30 ml ONCE PRN INJ PICC PLACEMENT 08/03/17 09:00 09/02/17 08:59 Lorazepam (Ativan 2mg/ml 1ml) 2 mg Q2H PRN IV For Anxiety 07/31/17 17:00 08/07/17 16:59 Morphine Sulfate (Morphine Sulfate) 4 mg Q4H PRN IVP Severe Pain (Pain Scale 7-10) 07/31/17 17:00 08/07/17 16:59 Ondansetron HCl (Zofran) 4 mg Q6H PRN IVP Nausea & Vomiting 07/31/17 17:00 08/30/17 16:59 Pantoprazole (Protonix) 40 mg DAILY IV 08/01/17 09:00 08/31/17 08:59 08/03/17 09:06 Phenytoin (Dilantin) 200 mg BEDTIME GT 07/31/17 21:00 08/30/17 20:59 08/02/17 21:12 Polyethylene Glycol (Miralax) 17 gm DAILYPRN PRN ORAL Constipation 07/31/17 17:00 08/30/17 16:59 Vancomycin HCl (Vanco rx to dose) 1 ea DAILYPRN PRN MISC RX TO DOSE PROTOCOL 07/31/17 17:30 08/30/17 17:29 Wilks ([facility]),Lizet PACHECO Aug 03, 2017 11:53
[2017-08-03 12:00] VITALS: BP 150/88
[2017-08-03] MEDS ORDERED: Albuterol/Ipratropium 3ml neb HHN PRN (13:00)
--- NOTE | 2017-08-03 13:01 | Diagnostic Imaging Report ---
APPROVED REPORT CPT Code: 92411 Symptoms Other : Swelling BILATERAL UPPER EXTREMITY: Imaging of the subclavian, axillary, brachial, radial and ulnar arteries is within normal limits. There is no evidence of stenosis or occlusions within these segments. The Doppler waveforms of both upper extremities are multiphasic, consistent with normal inflow to both upper extremities.
--- NOTE | 2017-08-03 13:02 | Diagnostic Imaging Report ---
APPROVED REPORT CPT Code: 81832 Present Symptoms Shortness of breath Comments: R/O DVT Technically very difficult and limited study ( contractures). BILATERAL: Imaging reveals a patent deep venous system bilaterally. There is no evidence of thrombus within the common femoral, distal superficial femoral, popliteal or tibial segments. The greater saphenous veins are also within normal limits. Doppler indicates normal spontaneous flow within these segments. The proximal to mid superficial femoral veins were not visualized.
--- NOTE | 2017-08-03 14:18 | Diagnostic Imaging Report ---
Indication: Increased alkaline phosphatase Technique: Burris-scale and duplex images of the upper abdomen were obtained Comparison: none Findings: /Exam is somewhat limited; patient on ventilator centimeters-, proximal port was breathing instructions. Gallbladder demonstrates a gallstone in the region of the neck. The gallbladder is not distended. There is borderline wall thickening, gallbladder wall measuring just over 3 mm in thickness. Unable to assess sonographic Blake's sign Common bile duct measures 7 mm in diameter. No intrahepatic biliary ductal dilatation. Liver demonstrates coarsened slightly increased echogenicity. No focal abnormality Portal vein and hepatic veins are patent. Pancreas is unremarkable. Spleen is unremarkable. Left kidney measures 9.5 cm in length. Right kidney measures 10 cm length. Both kidneys demonstrate normal echogenicity. There is no hydronephrosis. There is a 12 mm right renal cyst . Non-aneurysmal abdominal aorta . There is trace ascites fluid and a left-sided pleural effusion. Impression: Trace ascites. Left-sided pleural effusion Cholelithiasis. Borderline gallbladder wall thickening, more likely artifact due to underdistention than real. Could also be secondary to the hemodynamic derangements causing the trace ascites and left pleural effusion. If there is high suspicion for acute cholecystitis, hepatobiliary nuclear scan should be obtained Borderline dilated common bile duct. Recommend correlation with liver function tests. Consider MRCP or nuclear medicine about a biliary scan for further evaluation if clinically indicated
[2017-08-03 16:00] VITALS: BP 150/84
--- NOTE | 2017-08-03 17:04 | Diagnostic Imaging Report ---
Indication: Bilateral lower extremity wounds and sacral wound Technique: IV administration 24.2 mCi 99 M technetium MDP. Whole body and spot images were obtained. Comparison: None. No plain radiographs are available for comparison Findings: Flow and blood pool images demonstrate asymmetrically increased flow and blood pool activity about the right ankle, foot, and distal leg. There is slightly prominent flow and blood pool activity in the region of the left calcaneal tuberosity. No definite blood abnormality is seen involving the posterior pelvis, sacrum, coccyx. No abnormal blood pool activity is seen in either knee. On the left ankle and foot, markedly increased static activity is seen in the region of the calcaneal tuberosity. Given the focal abnormal findings in this area on the blood pool and the flow images, this is concerning for acute osteomyelitis. There is increased activity at the level of the distal tibia, which does not demonstrate corresponding flow or blood pool abnormality. Other areas of increased activity are seen in the mid and forefoot. These are nonspecific, could represent areas of degenerative change or trauma as noted definite flow or blood pool abnormalities demonstrated. On the right ankle and foot, there is slightly increased activity in the region of the calcaneal tuberosity on the static images. Markedly increased activity is seen in the region of the distal tibia and the flow, blood pool, and static images. Other areas of increased activity are seen in the lateral mid foot, in the region of the first metatarsal phalangeal joint. No definite bony abnormality of the pelvis is demonstrated. Mild increased activity about both knees probably reflects degenerative change Impression: Abnormal flow, blood pool, static activity involving the calcaneal tuberosity on the left. This is worrisome for acute osteomyelitis. Correlation with plain radiographs is recommended Striking abnormal static activity in the region of the left distal tibia. This is nonspecific in the absence of definite flow or blood pool activity. This could represent fracture or severe degenerative change. Given fairly extensive abnormalities elsewhere, Charcot changes are definitely a possibility. Correlation with plain radiographs is recommended Abnormal flow, blood pool, and static activity in the right distal tibia. While this combination of findings is suggestive of osteomyelitis, the location is unusual, as is the similarity to the contralateral side on the static images. Therefore, the possibility that this could represent Charcot changes or other posttraumatic/degenerative abnormality should be strongly considered. Correlation with plain radiographs is strongly recommended Slightly prominent activity in the right calcaneal tuberosity, possibly with correlative findings on the flow and blood pool images. This finding is equivocal, but could indicate very early osteomyelitis changes Abnormal activity in the bilateral mid and forefeet, most likely degenerative in nature, could also indicate posttraumatic changes. As described above, the multiplicity of findings raises the possibility of Charcot changes Mild degenerative changes in both knees No definite sacral abnormality to suggest sacral osteomyelitis
--- NOTE | 2017-08-03 17:32 | General Surgery Progress Note ---
General Surgery-Progress Note Subjective Additional Comments doing well. no acute events. wounds being cared for. Objective Last 24 Hour Vital Signs Date Time Temp Pulse Resp B/P (MAP) Pulse Ox O2 Delivery O2 Flow Rate FiO2 08/03/17 16:37 94 18 50 08/03/17 14:46 91 19 50 08/03/17 12:38 93 18 50 08/03/17 12:15 50 08/03/17 12:00 97.4 94 18 150/88 100 Mechanical Ventilator 50 97.4 08/03/17 11:43 93 08/03/17 10:47 91 18 50 08/03/17 08:41 92 18 50 08/03/17 08:00 97.7 94 16 145/89 100 Mechanical Ventilator 50 97.7 08/03/17 08:00 50 08/03/17 07:34 92 08/03/17 06:45 91 18 50 08/03/17 05:19 89 18 60 08/03/17 04:00 98.4 96 18 145/87 100 Mechanical Ventilator 50 98.4 08/03/17 04:00 50 08/03/17 04:00 102 08/03/17 03:45 99 18 60 08/03/17 01:29 104 18 60 08/03/17 00:00 50 08/03/17 00:00 95 08/03/17 00:00 98.4 100 18 145/78 100 Mechanical Ventilator 50 98.4 08/02/17 22:55 98 18 60 08/02/17 20:35 101 18 60 08/02/17 20:00 97.7 100 18 133/83 100 Mechanical Ventilator 50 97.7 08/02/17 20:00 50 08/02/17 20:00 101 08/02/17 19:35 92 18 60 I&O Intake and Output 08/02/17 08/03/17 19:00 07:00 Intake Total 610 ml 685 ml Output Total 750 ml 1000 ml Balance -140 ml -315 ml IV Total 55 ml 210 ml Tube Feeding 435 ml 385 ml Other 120 ml 90 ml Output Urine Total 750 ml 1000 ml # Bowel Movements 2 1 Dressing: dry Wound: clean, dry, intact Cardiovascular: RSR Respiratory: clear Abdomen: soft, non-tender, present bowel sounds Extremities: no cyanosis Laboratory Tests Test 08/03/17 03:35 08/03/17 04:00 White Blood Count 8.2 K/UL (4.8-10.8) Red Blood Count 2.63 M/UL (4.70-6.10) L Hemoglobin 8.0 G/DL (14.2-18.0) L Hematocrit 21.8 % (42.0-52.0) L Mean Corpuscular Volume 83 FL (80-99) Mean Corpuscular Hemoglobin 30.4 PG (27.0-31.0) Mean Corpuscular Hemoglobin Concent 36.7 G/DL (32.0-36.0) H Red Cell Distribution Width 16.1 % (11.6-14.8) H Platelet Count 435 K/UL (150-450) Mean Platelet Volume 6.1 FL (6.5-10.1) L Neutrophils (%) (Auto) 66.3 % (45.0-75.0) Lymphocytes (%) (Auto) 19.2 % (20.0-45.0) L Monocytes (%) (Auto) 8.0 % (1.0-10.0) Eosinophils (%) (Auto) 5.2 % (0.0-3.0) H Basophils (%) (Auto) 1.2 % (0.0-2.0) Sodium Level 138 MMOL/L (136-145) Potassium Level 3.2 MMOL/L (3.5-5.1) L Chloride Level 105 MMOL/L (98-107) Carbon Dioxide Level 23 MMOL/L (21-32) Anion Gap 10 mmol/L (5-15) Blood Urea Nitrogen 12 mg/dL (7-18) Creatinine 1.0 MG/DL (0.55-1.30) Estimat Glomerular Filtration Rate > 60 mL/min (>60) Glucose Level 99 MG/DL (74-106) Calcium Level 8.5 MG/DL (8.5-10.1) Total Bilirubin 0.3 MG/DL (0.2-1.0) Aspartate Amino Transf (AST/SGOT) 20 U/L (15-37) Alanine Aminotransferase (ALT/SGPT) 10 U/L (12-78) L Alkaline Phosphatase 214 U/L (46-116) H Pro-B-Type Natriuretic Peptide 4906 pg/mL (0-125) H Total Protein 7.3 G/DL (6.4-8.2) Albumin 1.3 G/DL (3.4-5.0) L Globulin 6.0 g/dL Albumin/Globulin Ratio 0.2 (1.0-2.7) L Magnesium Level 1.9 MG/DL (1.8-2.4) Plan Problems: (1) Pressure ulcer Assessment & Plan: sacral ulcers with epidermal abrasions, no necrotic tissue or dermal breakdown at this time. likely pressure in nature. can progress recommend dressings and skin barrier as currently being placed turn q2h keep pressure off wounds unfortunately given patients condition will need aggressive prevention or will progress. fortunately great nursing care being provided and currently stable. thank you for this consultation. will follow with recs. Jesus Martin Aug 03, 2017 17:32
[2017-08-03 20:00] VITALS: BP 140/90
--- NOTE | 2017-08-03 20:21 | Cardiology Report ---
APPROVED REPORT EKG Measurement Heart [id number] Atrial flutter with 2:1 conduction Right bundle branch block Abnormal ECG
[2017-08-03] MEDS: Dyna-Hex 2% Top Sol 2oz TOPIC SCH (20:58)
[2017-08-03] MEDS: Phenytoin Susp 100mg/4ml GT SCH (21:42)
[2017-08-04] VITALS: BP 143/81
[2017-08-04] MEDS: Cefepime HCl 2 GM in NS 55 ML IVPB SCH ×2 (00:27→12:43)
[2017-08-04 04:00] VITALS: BP 152/88
[2017-08-04 05:34] LABS: HEMATOCRIT 21.6 % (42.0-52.0); HEMOGLOBIN 7.8 G/DL (14.2-18.0); MEAN CORPUSCULAR VOLUME 83 FL (80-99); PLATELET COUNT 404 K/UL (150-450); RED BLOOD COUNT 2.59 M/UL (4.70-6.10); RED CELL DISTRIBUTION WIDTH 16.5 % (11.6-14.8); WHITE BLOOD COUNT 9.4 K/UL (4.8-10.8)
[2017-08-04 05:54] LABS: ANION GAP 9 mmol/L (5-15); BLOOD UREA NITROGEN 13 mg/dL (7-18); CALCIUM 8.6 MG/DL (8.5-10.1); CARBON DIOXIDE 24 MMOL/L (21-32); CHLORIDE 104 MMOL/L (98-107); CREATININE 1.1 MG/DL (0.55-1.30); POTASSIUM 3.8 MMOL/L (3.5-5.1); SODIUM 136 MMOL/L (136-145)
[2017-08-04 08:00] VITALS: BP 139/81
[2017-08-04] MEDS ORDERED: Vancomycin 1gm/D5W 275ml IVPB ONE ×2 (08:00)
--- NOTE | 2017-08-04 08:19 | Pulmonolgy Critical Care Note ---
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 Critical Care - Objective Last 24 Hour Vital Signs Date Time Temp Pulse Resp B/P (MAP) Pulse Ox O2 Delivery O2 Flow Rate FiO2 08/04/17 06:40 90 18 50 08/04/17 05:21 100 18 50 08/04/17 04:00 50 08/04/17 04:00 97.7 61 18 152/88 100 Mechanical Ventilator 50 97.7 08/04/17 03:33 97 18 50 08/04/17 00:55 95 18 50 08/04/17 00:17 94 08/04/17 00:00 98.1 93 18 143/81 100 Mechanical Ventilator 50 98.1 08/03/17 23:22 92 18 50 08/03/17 20:55 90 18 50 08/03/17 20:00 93 08/03/17 20:00 98.0 96 18 140/90 100 Mechanical Ventilator 50 98.0 08/03/17 20:00 50 08/03/17 19:28 88 19 50 08/03/17 16:37 94 18 50 08/03/17 16:00 98.5 94 18 150/84 100 Mechanical Ventilator 50 98.5 08/03/17 16:00 50 08/03/17 14:58 97 08/03/17 14:46 91 19 50 08/03/17 12:38 93 18 50 08/03/17 12:15 50 08/03/17 12:00 97.4 94 18 150/88 100 Mechanical Ventilator 50 97.4 08/03/17 11:43 93 08/03/17 10:47 91 18 50 08/03/17 08:41 92 18 50 Status: awake Condition: critical, grave Neck: full ROM Lungs: clear Heart: HR/BP stable, HR/BP unstable Abdomen: soft, non-tender, active bowel sounds, feeding tube Micro: Microbiology Date/Time Source Procedure Growth Status 08/02/17 17:45 Nasopharynx Influenza Types A,B Antigen (SUBHASH) - Final Complete 08/01/17 18:00 Stool Clostridium difficile Toxin Assay - Final Complete Accucheck: 131 Critical Care - Subjective ROS Limited/Unobtainable: Yes Condition: critical EKG Rhythm: Sinus Rhythm FI02: 50 Vent Support Breath Rate: 18 Vent Support Mode: AC Vent Tidal Volume: 550 Sputum Amount: Small PEEP: 5.0 PIP: 20 Tube Feeding Amount: 40 I&O: Intake and Output 08/03/17 08/04/17 19:00 07:00 Intake Total 825 ml 435 ml Output Total 1200 ml 1000 ml Balance -375 ml -565 ml Free Water 50 ml 50 ml IV Total 55 ml 55 ml Tube Feeding 660 ml 280 ml Other 60 ml 50 ml Output Urine Total 1200 ml 1000 ml # Voids 1 CXR: no change, extensive infiltrate Labs: Laboratory Tests Test 08/04/17 04:15 08/04/17 08:00 White Blood Count 9.4 K/UL (4.8-10.8) Red Blood Count 2.59 M/UL (4.70-6.10) L Hemoglobin 7.8 G/DL (14.2-18.0) L Hematocrit 21.6 % (42.0-52.0) L Mean Corpuscular Volume 83 FL (80-99) Mean Corpuscular Hemoglobin 30.0 PG (27.0-31.0) Mean Corpuscular Hemoglobin Concent 36.0 G/DL (32.0-36.0) Red Cell Distribution Width 16.5 % (11.6-14.8) H Platelet Count 404 K/UL (150-450) Mean Platelet Volume 6.0 FL (6.5-10.1) L Neutrophils (%) (Auto) % (45.0-75.0) Lymphocytes (%) (Auto) % (20.0-45.0) Monocytes (%) (Auto) % (1.0-10.0) Eosinophils (%) (Auto) % (0.0-3.0) Basophils (%) (Auto) % (0.0-2.0) Neutrophils % (Manual) Pending Lymphocytes % (Manual) Pending Platelet Estimate Pending Platelet Morphology Pending Sodium Level 136 MMOL/L (136-145) Potassium Level 3.8 MMOL/L (3.5-5.1) Chloride Level 104 MMOL/L (98-107) Carbon Dioxide Level 24 MMOL/L (21-32) Anion Gap 9 mmol/L (5-15) Blood Urea Nitrogen 13 mg/dL (7-18) Creatinine 1.1 MG/DL (0.55-1.30) Estimat Glomerular Filtration Rate > 60 mL/min (>60) Glucose Level 102 MG/DL (74-106) Calcium Level 8.6 MG/DL (8.5-10.1) Random Vancomycin Level 16.3 ug/mL Arterial Blood pH 7.470 (7.350-7.450) Arterial Blood Partial Pressure CO2 29.2 mmHg (35.0-45.0) L Arterial Blood Partial Pressure O2 100.9 mmHg (75.0-100.0) H Arterial Blood HCO3 21.0 mmol/L (22.0-26.0) L Arterial Blood Oxygen Saturation 97.0 % (92.0-98.0) Arterial Blood Base Excess -2.1 Juan Test Positive NOEL MICHELLE Aug 04, 2017 08:18
[2017-08-04] MEDS: Pantoprazole Inj IV SCH (09:08)
[2017-08-04] MEDS: levETIRAcetam 500mg/5ml Liquid GT SCH ×2 (09:08→17:45)
[2017-08-04] MEDS: Amiodarone 200mg tab GT SCH ×2 (09:08→20:32)
[2017-08-04] MEDS: Heparin 5000 units/ml inj SUBQ SCH ×2 (09:13→20:34)
[2017-08-04 12:00] VITALS: BP 136/81
--- NOTE | 2017-08-04 14:13 | Infectious Diseases Prog Note ---
Assessment/Plan Assessment/Plan ASSESSMENT: The patient is a 62-year-old male with: Blood Cx: GPC probable line infection ( PICC from out side facility ) Leukocytosis, SP Fever, SP Diarrhea Clostridium difficile: Neg ? ventilatory-associated pneumonia Scx: MDR PSA (chest x-ray:Considerably worse pleural and parenchymal disease on the right. Slightly worse in pleural and parenchymal disease on the left, over 3 days ) Elevated alkaline phosphatase improving US Borderline gallbladder wall thickening, more likely artifact due to underdistention than real. Influenza: Neg Multiple decubitus of lower extremity. 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 Sacral Wnd : mixed growth ( Colonizer ) ESR: 130 , CRP : 8 Diabetes. Anemia. GERD. Hypertension. History of TBI. Seizure disorder PLAN: continue the patient on IV vancomycin d# 5 , add Zosyn and Gent d# 1 and DC cefepime day # 5 Monitor blood cultures ( repeat) Monitor chest x-ray. DC PICC Subjective Constitutional: Denies: no symptoms, fever, chills, fatigue, anorexia, drenching sweats, other Allergies: Coded Allergies: No Known Allergies (Unverified , 07/31/17) Subjective Afebrile Objective Vital Signs Last 24 Hour Vital Signs Date Time Temp Pulse Resp B/P (MAP) Pulse Ox O2 Delivery O2 Flow Rate FiO2 08/04/17 12:40 89 18 50 08/04/17 12:00 88 08/04/17 11:14 88 17 50 08/04/17 09:12 88 18 50 08/04/17 08:00 90 08/04/17 06:40 90 18 50 08/04/17 05:21 100 18 50 08/04/17 04:00 50 08/04/17 04:00 97.7 61 18 152/88 100 Mechanical Ventilator 50 97.7 08/04/17 03:33 97 18 50 08/04/17 00:55 95 18 50 08/04/17 00:17 94 08/04/17 00:00 98.1 93 18 143/81 100 Mechanical Ventilator 50 98.1 08/03/17 23:22 92 18 50 08/03/17 20:55 90 18 50 08/03/17 20:00 93 08/03/17 20:00 98.0 96 18 140/90 100 Mechanical Ventilator 50 98.0 08/03/17 20:00 50 08/03/17 19:28 88 19 50 08/03/17 16:37 94 18 50 08/03/17 16:00 98.5 94 18 150/84 100 Mechanical Ventilator 50 98.5 08/03/17 16:00 50 08/03/17 14:58 97 08/03/17 14:46 91 19 50 Height (Feet): 6 Height (Inches): 0.00 Weight (Pounds): 146 HEENT: atraumatic Respiratory/Chest: normal breath sounds Cardiovascular: regular rhythm Abdomen: non distended Microbiology Date/Time Source Procedure Growth Status 08/02/17 20:00 Wound Gram Stain - Final Resulted 08/02/17 20:00 Wound Wound Culture - Preliminary Resulted 08/02/17 17:45 Nasopharynx Influenza Types A,B Antigen (SUBHASH) - Final Complete 08/01/17 18:00 Stool Clostridium difficile Toxin Assay - Final Complete 08/01/17 18:00 Rectum VRE Culture - Final Enterococcus Faecium - Vre Complete Laboratory Tests Test 08/04/17 04:15 08/04/17 08:00 White Blood Count 9.4 K/UL (4.8-10.8) Red Blood Count 2.59 M/UL (4.70-6.10) L Hemoglobin 7.8 G/DL (14.2-18.0) L Hematocrit 21.6 % (42.0-52.0) L Mean Corpuscular Volume 83 FL (80-99) Mean Corpuscular Hemoglobin 30.0 PG (27.0-31.0) Mean Corpuscular Hemoglobin Concent 36.0 G/DL (32.0-36.0) Red Cell Distribution Width 16.5 % (11.6-14.8) H Platelet Count 404 K/UL (150-450) Mean Platelet Volume 6.0 FL (6.5-10.1) L Neutrophils (%) (Auto) % (45.0-75.0) Lymphocytes (%) (Auto) % (20.0-45.0) Monocytes (%) (Auto) % (1.0-10.0) Eosinophils (%) (Auto) % (0.0-3.0) Basophils (%) (Auto) % (0.0-2.0) Differential Total Cells Counted 100 Neutrophils % (Manual) 70 % (45-75) Lymphocytes % (Manual) 18 % (20-45) L Monocytes % (Manual) 10 % (1-10) Eosinophils % (Manual) 2 % (0-3) Basophils % (Manual) 0 % (0-2) Band Neutrophils 0 % (0-8) Platelet Estimate Adequate Platelet Morphology Normal Hypochromasia 1+ Anisocytosis 1+ Microcytosis Sodium Level 136 MMOL/L (136-145) Potassium Level 3.8 MMOL/L (3.5-5.1) Chloride Level 104 MMOL/L (98-107) Carbon Dioxide Level 24 MMOL/L (21-32) Anion Gap 9 mmol/L (5-15) Blood Urea Nitrogen 13 mg/dL (7-18) Creatinine 1.1 MG/DL (0.55-1.30) Estimat Glomerular Filtration Rate > 60 mL/min (>60) Glucose Level 102 MG/DL (74-106) Calcium Level 8.6 MG/DL (8.5-10.1) Random Vancomycin Level 16.3 ug/mL Arterial Blood pH 7.470 (7.350-7.450) Arterial Blood Partial Pressure CO2 29.2 mmHg (35.0-45.0) L Arterial Blood Partial Pressure O2 100.9 mmHg (75.0-100.0) H Arterial Blood HCO3 21.0 mmol/L (22.0-26.0) L Arterial Blood Oxygen Saturation 97.0 % (92.0-98.0) Arterial Blood Base Excess -2.1 Juan Test Positive Current Medications Medications (Trade) Dose Ordered Sig/Serena Route PRN Reason Start Time Stop Time Status Last Admin Dose Admin Acetaminophen (Tylenol) 650 mg Q4H PRN ORAL FEVER 07/31/17 17:00 08/30/17 16:59 Albuterol/ Ipratropium (Albuterol/ Ipratropium) 3 ml Q4H PRN HHN Shortness of Breath 08/03/17 13:00 08/08/17 23:59 Amiodarone HCl (Cordarone) 200 mg EVERY 12 HOURS GT 07/31/17 21:00 08/30/17 20:59 08/04/17 09:08 Cefepime HCl 2 gm/ Sodium Chloride 55 ml @ 110 mls/hr Q12H IVPB 08/01/17 13:00 08/08/17 23:59 08/04/17 12:43 Chlorhexidine Gluconate (Ngoc-Hex 2%) 1 applic DAILY@2000 TOPIC 07/31/17 20:00 08/30/17 19:59 08/03/17 20:58 Dextrose (Dextrose 50%) STAT PRN IV Hypoglycemia 07/31/17 17:00 08/30/17 16:59 Heparin Sodium (Porcine) (Heparin 5000 units/ml) 5,000 units EVERY 12 HOURS SUBQ 07/31/17 21:00 08/30/17 20:59 08/04/17 09:13 Heparin Sodium/ Sodium Chloride (Heparin 2000 units/Ns 1000ml premix) 2,000 unit ONCE PRN INJ PICC PLACEMENT 08/03/17 09:00 09/02/17 08:59 Levetiracetam (Keppra) 250 mg BID GT 07/31/17 18:00 08/30/17 17:59 08/04/17 09:08 Lidocaine (Xylocaine 1% MPF 5ml) 30 ml ONCE PRN INJ PICC PLACEMENT 08/03/17 09:00 09/02/17 08:59 Lorazepam (Ativan 2mg/ml 1ml) 2 mg Q2H PRN IV For Anxiety 07/31/17 17:00 08/07/17 16:59 Morphine Sulfate (Morphine Sulfate) 4 mg Q4H PRN IVP Severe Pain (Pain Scale 7-10) 07/31/17 17:00 08/07/17 16:59 Ondansetron HCl (Zofran) 4 mg Q6H PRN IVP Nausea & Vomiting 07/31/17 17:00 08/30/17 16:59 Pantoprazole (Protonix) 40 mg DAILY IV 08/01/17 09:00 08/31/17 08:59 08/04/17 09:08 Phenytoin (Dilantin) 200 mg BEDTIME GT 07/31/17 21:00 08/30/17 20:59 08/03/17 21:42 Polyethylene Glycol (Miralax) 17 gm DAILYPRN PRN ORAL Constipation 07/31/17 17:00 08/30/17 16:59 Vancomycin HCl (Vanco rx to dose) 1 ea DAILYPRN PRN MISC RX TO DOSE PROTOCOL 07/31/17 17:30 08/30/17 17:29 KRYSTIN JAQUEZ M.D. Aug 04, 2017 14:13
[2017-08-04] MEDS ORDERED: Gentamicin Rx monitoring MISC PRN (14:15)
[2017-08-04 16:00] VITALS: BP 134/78
[2017-08-04] MEDS ORDERED: NS 275ml ONE (16:13)
[2017-08-04] MEDS ORDERED: Tubing IV Secondary IV ONE (16:13)
[2017-08-04] MEDS ORDERED: Sterile Water Irrig 1000ml IRRIG ONE (16:13)
[2017-08-04] MEDS: Piperacillin/Tazobactam 3.375 GM in NS 110 ML IVPB SCH (16:31)
[2017-08-04] MEDS: Gentamicin inj 350 MG in NS 110 ML IVPB SCH (16:31)
[2017-08-04 20:00] VITALS: BP 136/81
[2017-08-04] MEDS: Dyna-Hex 2% Top Sol 2oz TOPIC SCH (20:32)
[2017-08-04] MEDS: Phenytoin Susp 100mg/4ml GT SCH (20:32)
[2017-08-05] VITALS: BP 134/78
[2017-08-05] MEDS: Piperacillin/Tazobactam 3.375 GM in NS 110 ML IVPB SCH ×4 (00:20→21:00)
[2017-08-05 04:00] VITALS: BP 142/87
[2017-08-05 08:00] VITALS: BP 133/79
[2017-08-05] MEDS: levETIRAcetam 500mg/5ml Liquid GT SCH ×2 (09:49→18:20)
[2017-08-05] MEDS: Amiodarone 200mg tab GT SCH ×2 (09:49→20:44)
[2017-08-05] MEDS: Heparin 5000 units/ml inj SUBQ SCH ×2 (09:50→20:48)
[2017-08-05] MEDS: Pantoprazole Inj IV SCH (09:51)
[2017-08-05 12:00] VITALS: BP 135/83
--- NOTE | 2017-08-05 12:49 | Pulmonolgy Critical Care Note ---
Critical Care - Asmt/Plan Problems: (1) Sepsis (2) Chronic respiratory failure (3) UTI (urinary tract infection) (4) Feeding by G-tube (5) Pressure ulcer Respiratory: monitor respiratory rate, adjust FIO2 Cardiac: continue to monitor HR/BP Renal: F/U I&O, keep IV fluid, check electrolytes Infectious Disease: check cultures Gastrointestinal: continue feedings/current rate Endocrine: monitor blood sugar, check TSH Hematologic: monitor H/H, transfuse if hgb<8.5 Neurologic: PRN Ativan, keep patient comfortable Notes Reviewed: computer lab aide, cardio Discussed with: nurses, consultants, case assistantmanager demand - Objective Last 24 Hour Vital Signs Date Time Temp Pulse Resp B/P (MAP) Pulse Ox O2 Delivery O2 Flow Rate FiO2 08/05/17 10:30 92 18 50 08/05/17 08:38 91 18 50 08/05/17 08:00 97.7 91 18 133/79 100 Mechanical Ventilator 50 97.7 08/05/17 08:00 91 08/05/17 06:30 89 18 50 08/05/17 05:29 91 18 50 08/05/17 04:00 88 08/05/17 04:00 97.9 90 18 142/87 100 Mechanical Ventilator 50 97.9 08/05/17 04:00 50 08/05/17 02:35 88 18 50 08/05/17 01:21 91 18 50 08/05/17 00:00 97.1 88 18 134/78 100 Mechanical Ventilator 50 97.1 08/05/17 00:00 50 08/05/17 00:00 87 08/04/17 23:03 90 18 50 08/04/17 20:45 91 18 50 08/04/17 20:00 98.4 92 18 136/81 100 Mechanical Ventilator 50 98.4 08/04/17 20:00 50 08/04/17 19:27 92 08/04/17 19:04 92 18 50 08/04/17 16:50 91 18 50 08/04/17 16:00 50 08/04/17 16:00 90 08/04/17 16:00 98.1 91 18 134/78 100 Mechanical Ventilator 50 98.1 08/04/17 14:30 88 18 50 Status: awake Condition: critical HEENT: atraumatic Neck: full ROM Lungs: clear Heart: HR/BP stable, HR/BP unstable Abdomen: soft, non-tender, feeding tube Extremities: no C/C/E, edema Micro: Microbiology Date/Time Source Procedure Growth Status 08/03/17 13:20 Blood Blood Culture - Preliminary NO GROWTH AFTER 24 HOURS Resulted 08/03/17 13:20 Blood Blood Culture - Preliminary NO GROWTH AFTER 24 HOURS Resulted 08/02/17 20:00 Wound Gram Stain - Final Resulted 08/02/17 20:00 Wound Culture - Preliminary Gram Negative Bacillus 1 Gram Negative Bacillus 2 Gram Negative Bacillus 3 Diann Albicans Resulted 08/02/17 17:45 Nasopharynx Influenza Types A,B Antigen (SUBHASH) - Final Complete Accucheck: 131 Critical Care - Subjective ROS Limited/Unobtainable: No Condition: critical EKG Rhythm: Sinus Rhythm FI02: 50 Vent Support Breath Rate: 18 Vent Support Mode: AC Vent Tidal Volume: 550 Sputum Amount: Small PEEP: 5.0 PIP: 22 Tube Feeding Amount: 40 I&O: Intake and Output 08/04/17 08/05/17 19:00 07:00 Intake Total 857.5 ml 1056.25 ml Output Total 1300 ml 1500 ml Balance -442.5 ml -443.75 ml Free Water 200 ml IV Total 27.5 ml 316.25 ml Tube Feeding 480 ml 280 ml Blood Product 400 ml Other 150 ml 60 ml Output Urine Total 1300 ml 1500 ml # Bowel Movements 2 CXR: no change Labs: Laboratory Tests Test 08/05/17 05:00 Random Gentamicin Level 5.8 ug/mL NOEL MICHELLE Aug 05, 2017 12:49
[2017-08-05 13:43] LABS: BASOPHILS % (AUTO) 0.6 % (0.0-2.0); EOSINOPHILS % (AUTO) 8.5 % (0.0-3.0); HEMATOCRIT 28.3 % (42.0-52.0); HEMOGLOBIN 10.1 G/DL (14.2-18.0); LYMPHOCYTES % (AUTO) 12.3 % (20.0-45.0); MEAN CORPUSCULAR VOLUME 84 FL (80-99); MONOCYTES % (AUTO) 8.5 % (1.0-10.0); PLATELET COUNT 425 K/UL (150-450); RED BLOOD COUNT 3.37 M/UL (4.70-6.10); RED CELL DISTRIBUTION WIDTH 15.9 % (11.6-14.8); WHITE BLOOD COUNT 11.7 K/UL (4.8-10.8)
[2017-08-05 16:00] VITALS: BP 135/83
[2017-08-05] MEDS: Gentamicin inj 350 MG in NS 110 ML IVPB SCH ×2 (16:00→16:12)
--- NOTE | 2017-08-05 17:09 | Infectious Diseases Prog Note ---
Assessment/Plan Assessment/Plan ASSESSMENT: The patient is a 62-year-old male with: Blood Cx: CoNS probable line infection ( PICC from out side facility was removed on 08/04 ) Leukocytosis, SP Fever, SP Diarrhea Clostridium difficile: Neg ? ventilatory-associated pneumonia Scx: MDR PSA (chest x-ray:Considerably worse pleural and parenchymal disease on the right. Slightly worse in pleural and parenchymal disease on the left, over 3 days ) Elevated alkaline phosphatase improving US Borderline gallbladder wall thickening, more likely artifact due to underdistention than real. Influenza: Neg Multiple decubitus of lower extremity. 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 Sacral Wnd : mixed growth ( Colonizer ) ESR: 130 , CRP : 8 Diabetes. Anemia. GERD. Hypertension. History of TBI. Seizure disorder PLAN: continue the patient on IV vancomycin d# 6 / 10 and Zosyn and Gent d# 2 / 10 3 SP cefepime day # 5 Monitor blood cultures ( repeat) Monitor chest x-ray. Subjective Constitutional: Denies: no symptoms, fever, chills, fatigue, anorexia, drenching sweats, other Allergies: Coded Allergies: No Known Allergies (Unverified , 07/31/17) Subjective no acute event Afebrile Objective Vital Signs Last 24 Hour Vital Signs Date Time Temp Pulse Resp B/P (MAP) Pulse Ox O2 Delivery O2 Flow Rate FiO2 08/05/17 16:42 93 18 50 08/05/17 16:00 91 08/05/17 16:00 97.3 91 18 135/83 100 Mechanical Ventilator 50 97.3 08/05/17 14:48 90 18 50 08/05/17 12:51 89 18 50 08/05/17 12:00 97.3 91 18 135/83 100 Mechanical Ventilator 50 97.3 08/05/17 12:00 90 08/05/17 10:30 92 18 50 08/05/17 08:38 91 18 50 08/05/17 08:00 97.7 91 18 133/79 100 Mechanical Ventilator 50 97.7 08/05/17 08:00 91 08/05/17 06:30 89 18 50 08/05/17 05:29 91 18 50 08/05/17 04:00 88 08/05/17 04:00 97.9 90 18 142/87 100 Mechanical Ventilator 50 97.9 08/05/17 04:00 50 08/05/17 02:35 88 18 50 08/05/17 01:21 91 18 50 08/05/17 00:00 97.1 88 18 134/78 100 Mechanical Ventilator 50 97.1 08/05/17 00:00 50 08/05/17 00:00 87 08/04/17 23:03 90 18 50 08/04/17 20:45 91 18 50 08/04/17 20:00 98.4 92 18 136/81 100 Mechanical Ventilator 50 98.4 08/04/17 20:00 50 08/04/17 19:27 92 08/04/17 19:04 92 18 50 Height (Feet): 6 Height (Inches): 0.00 Weight (Pounds): 144 HEENT: mucous membranes moist Respiratory/Chest: normal breath sounds Cardiovascular: no gallop/murmur Abdomen: non distended Microbiology Date/Time Source Procedure Growth Status 08/03/17 13:20 Blood Blood Culture - Preliminary NO GROWTH AFTER 24 HOURS Resulted 08/03/17 13:20 Blood Blood Culture - Preliminary NO GROWTH AFTER 24 HOURS Resulted 08/02/17 20:00 Wound Gram Stain - Final Resulted 08/02/17 20:00 Wound Culture - Preliminary Gram Negative Bacillus 1 Gram Negative Bacillus 2 Gram Negative Bacillus 3 Diann Albicans Resulted 08/02/17 17:45 Nasopharynx Influenza Types A,B Antigen (SUBHASH) - Final Complete Laboratory Tests Test 08/05/17 05:00 White Blood Count 11.7 K/UL (4.8-10.8) H Red Blood Count 3.37 M/UL (4.70-6.10) L Hemoglobin 10.1 G/DL (14.2-18.0) L Hematocrit 28.3 % (42.0-52.0) #L Mean Corpuscular Volume 84 FL (80-99) Mean Corpuscular Hemoglobin 29.9 PG (27.0-31.0) Mean Corpuscular Hemoglobin Concent 35.7 G/DL (32.0-36.0) Red Cell Distribution Width 15.9 % (11.6-14.8) H Platelet Count 425 K/UL (150-450) Mean Platelet Volume 5.5 FL (6.5-10.1) L Neutrophils (%) (Auto) 70.0 % (45.0-75.0) Lymphocytes (%) (Auto) 12.3 % (20.0-45.0) L Monocytes (%) (Auto) 8.5 % (1.0-10.0) Eosinophils (%) (Auto) 8.5 % (0.0-3.0) H Basophils (%) (Auto) 0.6 % (0.0-2.0) Random Gentamicin Level 5.8 ug/mL Current Medications Medications (Trade) Dose Ordered Sig/Serena Route PRN Reason Start Time Stop Time Status Last Admin Dose Admin Acetaminophen (Tylenol) 650 mg Q4H PRN ORAL FEVER 07/31/17 17:00 08/30/17 16:59 Albuterol/ Ipratropium (Albuterol/ Ipratropium) 3 ml Q4H PRN HHN Shortness of Breath 08/03/17 13:00 08/08/17 23:59 Amiodarone HCl (Cordarone) 200 mg EVERY 12 HOURS GT 07/31/17 21:00 08/30/17 20:59 08/05/17 09:49 Chlorhexidine Gluconate (Ngoc-Hex 2%) 1 applic DAILY@2000 TOPIC 07/31/17 20:00 08/30/17 19:59 08/04/17 20:32 Dextrose (Dextrose 50%) STAT PRN IV Hypoglycemia 07/31/17 17:00 08/30/17 16:59 Gentamicin Protocol (Gentamicin pharmacy to dose) 1 ea DAILYPRN PRN MISC Per rx protocol 08/04/17 14:15 09/03/17 14:14 Gentamicin Sulfate 350 mg/ Sodium Chloride 118.75 ml @ 118.75 mls/hr Q48H IVPB 08/06/17 16:00 08/13/17 15:59 Heparin Sodium (Porcine) (Heparin 5000 units/ml) 5,000 units EVERY 12 HOURS SUBQ 07/31/17 21:00 08/30/17 20:59 08/05/17 09:50 Heparin Sodium/ Sodium Chloride (Heparin 2000 units/Ns 1000ml premix) 2,000 unit ONCE PRN INJ PICC PLACEMENT 08/03/17 09:00 3/30/18 08:59 Levetiracetam (Keppra) 250 mg BID GT 07/31/17 18:00 08/30/17 17:59 08/05/17 09:49 Lidocaine (Xylocaine 1% MPF 5ml) 30 ml ONCE PRN INJ PICC PLACEMENT 08/03/17 09:00 09/02/17 08:59 Lorazepam (Ativan 2mg/ml 1ml) 2 mg Q2H PRN IV For Anxiety 07/31/17 17:00 08/07/17 16:59 Morphine Sulfate (Morphine Sulfate) 4 mg Q4H PRN IVP Severe Pain (Pain Scale 7-10) 07/31/17 17:00 08/07/17 16:59 Ondansetron HCl (Zofran) 4 mg Q6H PRN IVP Nausea & Vomiting 07/31/17 17:00 08/30/17 16:59 Pantoprazole (Protonix) 40 mg DAILY IV 08/01/17 09:00 08/31/17 08:59 08/05/17 09:51 Phenytoin (Dilantin) 200 mg BEDTIME GT 07/31/17 21:00 08/30/17 20:59 08/04/17 20:32 Piperacillin Sod/ Tazobactam Sod 3.375 gm/Sodium Chloride 110 ml @ 27.5 mls/hr EVERY 8 HOURS IVPB 08/04/17 15:30 08/09/17 15:29 08/05/17 13:48 Polyethylene Glycol (Miralax) 17 gm DAILYPRN PRN ORAL Constipation 07/31/17 17:00 08/30/17 16:59 Vancomycin HCl (Vanco rx to dose) 1 ea DAILYPRN PRN MISC RX TO DOSE PROTOCOL 07/31/17 17:30 08/30/17 17:29 KRYSTIN JAQUEZ M.D. Aug 05, 2017 17:09
[2017-08-05 20:00] VITALS: BP 133/85
[2017-08-05] MEDS: Dyna-Hex 2% Top Sol 2oz TOPIC SCH (20:43)
[2017-08-05] MEDS: Phenytoin Susp 100mg/4ml GT SCH (20:44)
[2017-08-06] VITALS: BP 130/85
[2017-08-06 04:00] VITALS: BP 120/75
[2017-08-06] MEDS: Piperacillin/Tazobactam 3.375 GM in NS 110 ML IVPB SCH ×3 (06:13→21:09)
--- NOTE | 2017-08-06 07:24 | Pulmonology Progress Note ---
Assessment/Plan Assessment/Plan ASSESSMENT Sepsis Chronic respiratory failure/VDRF with trach status Probably VAP Acute OM L calcaneus Dysphagia, Feeding by G-tube seizure disorder functional quadriplegia multiple decub POA: sacral, L heel DM HTN hypokalemia PLAN OF CARE FARZANA vent/trach care, baseline ABG and titrate settings as needed CXR worse this am pulmonary toilet, suctioning, abx fup with CXR in am abx, ID follows prob VAP, sputum cx + GNR influenza negative, blood x + Staph likely due to line infection, old PICC dc, new PICC inserted today bone scan + high suspicion for acute OM L calcaneus, will need shelter abx - per ID management' wound care as per wound nurse recs podiatry eval noted and appreciated seizure precautions continue Keppra DVT GI prophylaxis replace K, Mg checked, stable Venous Duplex LE negative BP BS monitoring and management bowel regimen supportive care case discussed and evaluated by supervising physician Subjective Allergies: Coded Allergies: No Known Allergies (Unverified , 07/31/17) Subjective leukocytosis resolved, afebrile no signs of resp distress on current settings K-3.2 Objective Last 24 Hour Vital Signs Date Time Temp Pulse Resp B/P (MAP) Pulse Ox O2 Delivery O2 Flow Rate FiO2 08/06/17 06:34 111 19 50 08/06/17 05:25 105 19 50 08/06/17 04:00 102 08/06/17 04:00 98.6 100 22 120/75 100 Mechanical Ventilator 50 98.6 08/06/17 02:36 102 20 50 08/06/17 01:20 103 18 50 08/06/17 00:00 102 08/06/17 00:00 97.3 100 18 130/85 100 Mechanical Ventilator 50 97.3 08/05/17 22:56 101 18 50 08/05/17 20:46 98 20 50 08/05/17 20:00 97 08/05/17 20:00 98.6 100 18 133/85 100 Mechanical Ventilator 50 98.6 08/05/17 19:08 97 20 50 08/05/17 16:42 93 18 50 08/05/17 16:00 91 08/05/17 16:00 97.3 91 18 135/83 100 Mechanical Ventilator 50 97.3 08/05/17 14:48 90 18 50 08/05/17 12:51 89 18 50 08/05/17 12:00 97.3 91 18 135/83 100 Mechanical Ventilator 50 97.3 08/05/17 12:00 90 08/05/17 10:30 92 18 50 08/05/17 08:38 91 18 50 08/05/17 08:00 97.7 91 18 133/79 100 Mechanical Ventilator 50 97.7 08/05/17 08:00 91 Intake and Output 08/05/17 08/06/17 19:00 07:00 Intake Total 640 ml 450 ml Output Total 1200 ml 850 ml Balance -560 ml -400 ml Free Water 100 ml Tube Feeding 450 ml 390 ml Other 90 ml 60 ml Output Urine Total 1200 ml 850 ml # Bowel Movements 1 2 Microbiology Date/Time Source Procedure Growth Status 08/03/17 13:20 Blood Blood Culture - Preliminary NO GROWTH AFTER 24 HOURS Resulted 08/03/17 13:20 Blood Blood Culture - Preliminary NO GROWTH AFTER 24 HOURS Resulted Current Medications Medications (Trade) Dose Ordered Sig/Serena Route PRN Reason Start Time Stop Time Status Last Admin Dose Admin Acetaminophen (Tylenol) 650 mg Q4H PRN ORAL FEVER 07/31/17 17:00 08/30/17 16:59 Albuterol/ Ipratropium (Albuterol/ Ipratropium) 3 ml Q4H PRN HHN Shortness of Breath 08/03/17 13:00 08/08/17 23:59 Amiodarone HCl (Cordarone) 200 mg EVERY 12 HOURS GT 07/31/17 21:00 08/30/17 20:59 08/05/17 20:44 Chlorhexidine Gluconate (Ngoc-Hex 2%) 1 applic DAILY@2000 TOPIC 07/31/17 20:00 08/30/17 19:59 08/05/17 20:43 Dextrose (Dextrose 50%) STAT PRN IV Hypoglycemia 07/31/17 17:00 08/30/17 16:59 Gentamicin Protocol (Gentamicin pharmacy to dose) 1 ea DAILYPRN PRN MISC Per rx protocol 08/04/17 14:15 09/03/17 14:14 Gentamicin Sulfate 350 mg/ Sodium Chloride 118.75 ml @ 118.75 mls/hr Q48H IVPB 08/06/17 16:00 08/13/17 15:59 Heparin Sodium (Porcine) (Heparin 5000 units/ml) 5,000 units EVERY 12 HOURS SUBQ 07/31/17 21:00 08/30/17 20:59 08/05/17 20:48 Heparin Sodium/ Sodium Chloride (Heparin 2000 units/Ns 1000ml premix) 2,000 unit ONCE PRN INJ PICC PLACEMENT 08/03/17 09:00 09/02/17 08:59 Levetiracetam (Keppra) 250 mg BID GT 07/31/17 18:00 08/30/17 17:59 08/05/17 18:20 Lidocaine (Xylocaine 1% MPF 5ml) 30 ml ONCE PRN INJ PICC PLACEMENT 08/03/17 09:00 09/02/17 08:59 Lorazepam (Ativan 2mg/ml 1ml) 2 mg Q2H PRN IV For Anxiety 07/31/17 17:00 08/07/17 16:59 Morphine Sulfate (Morphine Sulfate) 4 mg Q4H PRN IVP Severe Pain (Pain Scale 7-10) 07/31/17 17:00 08/07/17 16:59 Ondansetron HCl (Zofran) 4 mg Q6H PRN IVP Nausea & Vomiting 07/31/17 17:00 08/30/17 16:59 Pantoprazole (Protonix) 40 mg DAILY IV 08/01/17 09:00 08/31/17 08:59 08/05/17 09:51 Phenytoin (Dilantin) 200 mg BEDTIME GT 07/31/17 21:00 08/30/17 20:59 08/05/17 20:44 Piperacillin Sod/ Tazobactam Sod 3.375 gm/Sodium Chloride 110 ml @ 27.5 mls/hr EVERY 8 HOURS IVPB 08/04/17 15:30 08/09/17 15:29 08/06/17 06:13 Polyethylene Glycol (Miralax) 17 gm DAILYPRN PRN ORAL Constipation 07/31/17 17:00 08/30/17 16:59 Vancomycin HCl (Vanco rx to dose) 1 ea DAILYPRN PRN MISC RX TO DOSE PROTOCOL 07/31/17 17:30 08/30/17 17:29 Lizet Wilks NP ([facility]) Aug 06, 2017 07:24
--- NOTE | 2017-08-06 07:58 | Podiatric Progress Note ---
Assessment/Plan Patient Lokesh Hartman is a 62 year old male who was admitted on Jul 31, 2017 at 16:36 with Problems: Assessment/Plan A/ 1) Osteomyelitis 2) Multiple bilateral lower extremity ulcers - likely ischemic in nature 3) Knee contractures flexible 4) Abnormal mobility 2/2 CVA P/ 1) Cont foam dressings to lower extremity. No surgical intervention at this time. If patient fails conservative treatment, recommend high level amputation 2) Cont heel protectors 3) Arterial ultz of BLE technically difficult - not done 4) Bone scan reviewed 5) Cont abx per ID 6) PT to mobilize knees to prevent rigid knee contractures Subjective Allergies: Coded Allergies: No Known Allergies (Unverified , 07/31/17) Subjective Patient is nonverbal Objective Exam Last 24 Hour Vital Signs Date Time Temp Pulse Resp B/P (MAP) Pulse Ox O2 Delivery O2 Flow Rate FiO2 08/06/17 06:34 111 19 50 08/06/17 05:25 105 19 50 08/06/17 04:00 102 08/06/17 04:00 98.6 100 22 120/75 100 Mechanical Ventilator 50 98.6 08/06/17 02:36 102 20 50 08/06/17 01:20 103 18 50 08/06/17 00:00 102 08/06/17 00:00 97.3 100 18 130/85 100 Mechanical Ventilator 50 97.3 08/05/17 22:56 101 18 50 08/05/17 20:46 98 20 50 08/05/17 20:00 97 08/05/17 20:00 98.6 100 18 133/85 100 Mechanical Ventilator 50 98.6 08/05/17 19:08 97 20 50 08/05/17 16:42 93 18 50 08/05/17 16:00 91 08/05/17 16:00 97.3 91 18 135/83 100 Mechanical Ventilator 50 97.3 08/05/17 14:48 90 18 50 08/05/17 12:51 89 18 50 08/05/17 12:00 97.3 91 18 135/83 100 Mechanical Ventilator 50 97.3 08/05/17 12:00 90 08/05/17 10:30 92 18 50 08/05/17 08:38 91 18 50 08/05/17 08:00 97.7 91 18 133/79 100 Mechanical Ventilator 50 97.7 08/05/17 08:00 91 Microbiology Date/Time Source Procedure Growth Status 08/03/17 13:20 Blood Blood Culture - Preliminary NO GROWTH AFTER 24 HOURS Resulted 08/02/17 20:00 Wound Gram Stain - Final Resulted 08/02/17 20:00 Wound Culture - Preliminary Gram Negative Bacillus 1 Gram Negative Bacillus 2 Gram Negative Bacillus 3 Diann Albicans Resulted 08/02/17 17:45 Nasopharynx Influenza Types A,B Antigen (SUBHASH) - Final Complete 08/01/17 18:00 Stool Clostridium difficile Toxin Assay - Final Complete 07/31/17 12:40 Urine,Clean Catch Urine Culture - Final NO GROWTH AFTER 48 HOURS Complete 08/01/17 18:00 Rectum VRE Culture - Final Enterococcus Faecium - Vre Complete Dermatological Wound Assessment : Exudate Amount: None Tex Prajapati DPM Aug 06, 2017 07:58
[2017-08-06 08:00] VITALS: BP 130/77
[2017-08-06 08:13] LABS: BASOPHILS % (AUTO) 0.7 % (0.0-2.0); EOSINOPHILS % (AUTO) 6.9 % (0.0-3.0); HEMATOCRIT 29.2 % (42.0-52.0); HEMOGLOBIN 10.5 G/DL (14.2-18.0); LYMPHOCYTES % (AUTO) 11.2 % (20.0-45.0); MEAN CORPUSCULAR VOLUME 85 FL (80-99); NEUTROPHILS % (AUTO) 72.2 % (45.0-75.0); PLATELET COUNT 396 K/UL (150-450); RED BLOOD COUNT 3.46 M/UL (4.70-6.10); WHITE BLOOD COUNT 13.7 K/UL (4.8-10.8)
[2017-08-06 08:32] LABS: INR 1.3 (0.9-1.1)
[2017-08-06 08:42] LABS: PHOSPHORUS 3.3 MG/DL (2.5-4.9)
[2017-08-06] MEDS: Pantoprazole Inj IV SCH (08:44)
[2017-08-06] MEDS: levETIRAcetam 500mg/5ml Liquid GT SCH ×2 (08:44→17:56)
[2017-08-06] MEDS: Amiodarone 200mg tab GT SCH ×2 (08:44→21:09)
[2017-08-06] MEDS: Heparin 5000 units/ml inj SUBQ SCH ×2 (08:45→21:11)
[2017-08-06 09:05] LABS: ALANINE AMINOTRANSFERASE 11 U/L (12-78); ALBUMIN 1.5 G/DL (3.4-5.0); ALBUMIN/GLOBULIN RATIO 0.2 (1.0-2.7); ALKALINE PHOSPHATASE 222 U/L (46-116); ANION GAP 9 mmol/L (5-15); ASPARTATE AMINO TRANSFERASE 21 U/L (15-37); BILIRUBIN,TOTAL 0.3 MG/DL (0.2-1.0); BLOOD UREA NITROGEN 20 mg/dL (7-18); CALCIUM 8.8 MG/DL (8.5-10.1); CARBON DIOXIDE 23 MMOL/L (21-32); CHLORIDE 100 MMOL/L (98-107); CREATININE 1.3 MG/DL (0.55-1.30); POTASSIUM 4.3 MMOL/L (3.5-5.1); SODIUM 132 MMOL/L (136-145)
[2017-08-06 12:00] VITALS: BP 124/81
--- NOTE | 2017-08-06 12:11 | General Surgery Progress Note ---
General Surgery-Progress Note Subjective Additional Comments no acute events. comfortable. Objective Last 24 Hour Vital Signs Date Time Temp Pulse Resp B/P (MAP) Pulse Ox O2 Delivery O2 Flow Rate FiO2 08/06/17 12:00 97.9 105 20 124/81 100 Mechanical Ventilator 50 97.9 08/06/17 10:31 105 18 50 08/06/17 08:48 110 18 50 08/06/17 08:00 110 08/06/17 08:00 98.6 110 21 130/77 100 Mechanical Ventilator 50 98.6 08/06/17 06:34 111 19 50 08/06/17 05:25 105 19 50 08/06/17 04:00 102 08/06/17 04:00 98.6 100 22 120/75 100 Mechanical Ventilator 50 98.6 08/06/17 02:36 102 20 50 08/06/17 01:20 103 18 50 08/06/17 00:00 102 08/06/17 00:00 97.3 100 18 130/85 100 Mechanical Ventilator 50 97.3 08/05/17 22:56 101 18 50 08/05/17 20:46 98 20 50 08/05/17 20:00 97 08/05/17 20:00 98.6 100 18 133/85 100 Mechanical Ventilator 50 98.6 08/05/17 19:08 97 20 50 08/05/17 16:42 93 18 50 08/05/17 16:00 91 08/05/17 16:00 97.3 91 18 135/83 100 Mechanical Ventilator 50 97.3 08/05/17 14:48 90 18 50 08/05/17 12:51 89 18 50 I&O Intake and Output 08/05/17 08/06/17 19:00 07:00 Intake Total 640 ml 490 ml Output Total 1200 ml 850 ml Balance -560 ml -360 ml Free Water 100 ml Tube Feeding 450 ml 430 ml Other 90 ml 60 ml Output Urine Total 1200 ml 850 ml # Bowel Movements 1 2 Dressing: dry Wound: clean, dry Laboratory Tests Test 08/06/17 04:00 White Blood Count 13.7 K/UL (4.8-10.8) H Red Blood Count 3.46 M/UL (4.70-6.10) L Hemoglobin 10.5 G/DL (14.2-18.0) L Hematocrit 29.2 % (42.0-52.0) L Mean Corpuscular Volume 85 FL (80-99) Mean Corpuscular Hemoglobin 30.3 PG (27.0-31.0) Mean Corpuscular Hemoglobin Concent 35.9 G/DL (32.0-36.0) Red Cell Distribution Width 16.0 % (11.6-14.8) H Platelet Count 396 K/UL (150-450) Mean Platelet Volume 6.3 FL (6.5-10.1) L Neutrophils (%) (Auto) 72.2 % (45.0-75.0) Lymphocytes (%) (Auto) 11.2 % (20.0-45.0) L Monocytes (%) (Auto) 9.0 % (1.0-10.0) Eosinophils (%) (Auto) 6.9 % (0.0-3.0) H Basophils (%) (Auto) 0.7 % (0.0-2.0) Prothrombin Time 13.4 SEC (9.30-11.50) H Prothromb Time International Ratio 1.3 (0.9-1.1) H Activated Partial Thromboplast Time 35 SEC (23-33) H Sodium Level 132 MMOL/L (136-145) L Potassium Level 4.3 MMOL/L (3.5-5.1) Chloride Level 100 MMOL/L (98-107) Carbon Dioxide Level 23 MMOL/L (21-32) Anion Gap 9 mmol/L (5-15) Blood Urea Nitrogen 20 mg/dL (7-18) H Creatinine 1.3 MG/DL (0.55-1.30) Estimat Glomerular Filtration Rate 55.8 mL/min (>60) Glucose Level 81 MG/DL (74-106) Calcium Level 8.8 MG/DL (8.5-10.1) Phosphorus Level 3.3 MG/DL (2.5-4.9) Magnesium Level 1.8 MG/DL (1.8-2.4) Total Bilirubin 0.3 MG/DL (0.2-1.0) Aspartate Amino Transf (AST/SGOT) 21 U/L (15-37) Alanine Aminotransferase (ALT/SGPT) 11 U/L (12-78) L Alkaline Phosphatase 222 U/L (46-116) H Total Protein 8.1 G/DL (6.4-8.2) Albumin 1.5 G/DL (3.4-5.0) L Globulin 6.6 g/dL Albumin/Globulin Ratio 0.2 (1.0-2.7) L Random Vancomycin Level 16.3 ug/mL Plan Problems: (1) Pressure ulcer Assessment & Plan: sacral ulcers with epidermal abrasions, no necrotic tissue or dermal breakdown at this time. likely pressure in nature. can progress recommend dressings and skin barrier as currently being placed turn q2h keep pressure off wounds unfortunately given patients condition will need aggressive prevention or will progress. fortunately great nursing care being provided and currently stable. thank you for this consultation. will follow with recs. Jesus Martin Aug 06, 2017 12:11
--- NOTE | 2017-08-06 13:50 | Pulmonology Progress Note ---
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 Dysphagia, Feeding by G-tube seizure disorder functional quadriplegia multiple decub POA: sacral, L heel DM HTN PLAN OF CARE FARZANA vent/trach care, baseline ABG stable, fup with CXR pulmonary toilet, suctioning, abx abx, ID follows prob VAP, sputum cx + Pseudomonas MDR, influenza negative, blood x + Staph likely due to line infection, old PICC dc, new PICC inserted 08/03 bone scan + high suspicion for acute OM L calcaneus, will need intermodal dispatcher abx - per ID management' wound care as per wound nurse recs podiatry eval noted and appreciated seizure precautions continue Keppra DVT GI prophylaxis correct lytes as needed Venous Duplex LE negative BP BS monitoring and management bowel regimen supportive care case discussed and evaluated by supervising physician Subjective Allergies: Coded Allergies: No Known Allergies (Unverified , 07/31/17) Subjective mild leukocytosis , afebrile no signs of resp distress on current settings Objective Last 24 Hour Vital Signs Date Time Temp Pulse Resp B/P (MAP) Pulse Ox O2 Delivery O2 Flow Rate FiO2 08/06/17 13:10 102 18 50 08/06/17 12:00 97.9 105 20 124/81 100 Mechanical Ventilator 50 97.9 08/06/17 12:00 103 08/06/17 10:31 105 18 50 08/06/17 08:48 110 18 50 08/06/17 08:00 110 08/06/17 08:00 98.6 110 21 130/77 100 Mechanical Ventilator 50 98.6 08/06/17 06:34 111 19 50 08/06/17 05:25 105 19 50 08/06/17 04:00 102 08/06/17 04:00 98.6 100 22 120/75 100 Mechanical Ventilator 50 98.6 08/06/17 02:36 102 20 50 08/06/17 01:20 103 18 50 08/06/17 00:00 102 08/06/17 00:00 97.3 100 18 130/85 100 Mechanical Ventilator 50 97.3 08/05/17 22:56 101 18 50 08/05/17 20:46 98 20 50 08/05/17 20:00 97 08/05/17 20:00 98.6 100 18 133/85 100 Mechanical Ventilator 50 98.6 08/05/17 19:08 97 20 50 08/05/17 16:42 93 18 50 08/05/17 16:00 91 08/05/17 16:00 97.3 91 18 135/83 100 Mechanical Ventilator 50 97.3 08/05/17 14:48 90 18 50 Intake and Output 08/05/17 08/06/17 19:00 07:00 Intake Total 640 ml 490 ml Output Total 1200 ml 850 ml Balance -560 ml -360 ml Free Water 100 ml Tube Feeding 450 ml 430 ml Other 90 ml 60 ml Output Urine Total 1200 ml 850 ml # Bowel Movements 1 2 Objective General Appearance: no acute distress, bedridden, vent dependent male in NAD on Vent AC 550-18-50% PEEP 5 HEENT: status post trach - Shiley#8, secretions small yellow, thin Respiratory/Chest: no respiratory distress, rhonchi Cardiovascular: normal rate, regular rhythm - SR on tele, PICC intact Abdomen: normal bowel sounds, soft, non tender, G tube Skin: L heel and sacral decub POA Neurologic/Psychiatric: abnormal gait, other - contracted, poorly responsive4 Laboratory Tests 08/06/17 04:00: White Blood Count 13.7H, Red Blood Count 3.46L, Hemoglobin 10.5L, Hematocrit 29.2L, Mean Corpuscular Volume 85, Mean Corpuscular Hemoglobin 30.3, Mean Corpuscular Hemoglobin Concent 35.9, Red Cell Distribution Width 16.0H, Platelet Count 396, Mean Platelet Volume 6.3L, Neutrophils (%) (Auto) 72.2, Lymphocytes (%) (Auto) 11.2L, Monocytes (%) (Auto) 9.0, Eosinophils (%) (Auto) 6.9H, Basophils (%) (Auto) 0.7, Prothrombin Time 13.4H, Prothromb Time International Ratio 1.3H, Activated Partial Thromboplast Time 35H, Sodium Level 132L, Potassium Level 4.3, Chloride Level 100, Carbon Dioxide Level 23, Anion Gap 9, Blood Urea Nitrogen 20H, Creatinine 1.3, Estimat Glomerular Filtration Rate 55.8, Glucose Level 81, Calcium Level 8.8, Phosphorus Level 3.3, Magnesium Level 1.8, Total Bilirubin 0.3, Aspartate Amino Transf (AST/SGOT) 21, Alanine Aminotransferase (ALT/SGPT) 11L, Alkaline Phosphatase 222H, Total Protein 8.1, Albumin 1.5L, Globulin 6.6, Albumin/Globulin Ratio 0.2L, Random Vancomycin Level 16.3 Current Medications Medications (Trade) Dose Ordered Sig/Serena Route PRN Reason Start Time Stop Time Status Last Admin Dose Admin Acetaminophen (Tylenol) 650 mg Q4H PRN ORAL FEVER 07/31/17 17:00 08/30/17 16:59 Albuterol/ Ipratropium (Albuterol/ Ipratropium) 3 ml Q4H PRN HHN Shortness of Breath 08/03/17 13:00 08/08/17 23:59 Amiodarone HCl (Cordarone) 200 mg EVERY 12 HOURS GT 07/31/17 21:00 08/30/17 20:59 08/06/17 08:44 Chlorhexidine Gluconate (Ngoc-Hex 2%) 1 applic DAILY@2000 TOPIC 07/31/17 20:00 08/30/17 19:59 08/05/17 20:43 Dextrose (Dextrose 50%) STAT PRN IV Hypoglycemia 07/31/17 17:00 08/30/17 16:59 Gentamicin Protocol (Gentamicin pharmacy to dose) 1 ea DAILYPRN PRN MISC Per rx protocol 08/04/17 14:15 09/03/17 14:14 Gentamicin Sulfate 350 mg/ Sodium Chloride 118.75 ml @ 118.75 mls/hr Q48H IVPB 08/06/17 16:00 08/13/17 15:59 Heparin Sodium (Porcine) (Heparin 5000 units/ml) 5,000 units EVERY 12 HOURS SUBQ 07/31/17 21:00 08/30/17 20:59 08/06/17 08:45 Heparin Sodium/ Sodium Chloride (Heparin 2000 units/Ns 1000ml premix) 2,000 unit ONCE PRN INJ PICC PLACEMENT 08/03/17 09:00 09/02/17 08:59 Levetiracetam (Keppra) 250 mg BID GT 07/31/17 18:00 08/30/17 17:59 08/06/17 08:44 Lidocaine (Xylocaine 1% MPF 5ml) 30 ml ONCE PRN INJ PICC PLACEMENT 08/03/17 09:00 09/02/17 08:59 Lorazepam (Ativan 2mg/ml 1ml) 2 mg Q2H PRN IV For Anxiety 07/31/17 17:00 08/07/17 16:59 Morphine Sulfate (Morphine Sulfate) 4 mg Q4H PRN IVP Severe Pain (Pain Scale 7-10) 07/31/17 17:00 08/07/17 16:59 Ondansetron HCl (Zofran) 4 mg Q6H PRN IVP Nausea & Vomiting 07/31/17 17:00 08/30/17 16:59 Pantoprazole (Protonix) 40 mg DAILY IV 08/01/17 09:00 08/31/17 08:59 08/06/17 08:44 Phenytoin (Dilantin) 200 mg BEDTIME GT 07/31/17 21:00 08/30/17 20:59 08/05/17 20:44 Piperacillin Sod/ Tazobactam Sod 3.375 gm/Sodium Chloride 110 ml @ 27.5 mls/hr EVERY 8 HOURS IVPB 08/04/17 15:30 08/09/17 15:29 08/06/17 06:13 Polyethylene Glycol (Miralax) 17 gm DAILYPRN PRN ORAL Constipation 07/31/17 17:00 08/30/17 16:59 Vancomycin HCl (Vanco rx to dose) 1 ea DAILYPRN PRN MISC RX TO DOSE PROTOCOL 07/31/17 17:30 08/30/17 17:29 Vancomycin HCl 1 gm/Dextrose 275 ml @ 183.708 mls/hr Q48H IVPB 08/06/17 18:00 08/11/17 17:59 Lizet Wilks NP ([facility]) Aug 06, 2017 13:50
[2017-08-06] MEDS ORDERED: LORazepam Inj 2mg/ml 1ml IV PRN (15:00)
[2017-08-06 16:00] VITALS: BP 119/78
[2017-08-06] MEDS ORDERED: Gentamicin inj 350 MG in NS 110 ML IVPB SCH (16:00)
[2017-08-06] MEDS ORDERED: Morphine Sulfate 4mg/ml Inj IVP PRN (17:00)
[2017-08-06] MEDS ORDERED: Albuterol/Ipratropium 3ml neb HHN PRN (17:00)
[2017-08-06] MEDS ORDERED: Vancomycin 1gm/D5W 275ml IVPB SCH ×2 (18:00)
[2017-08-06 20:00] VITALS: BP 130/71
[2017-08-06] MEDS: Dyna-Hex 2% Top Sol 2oz TOPIC SCH (21:09)
[2017-08-06] MEDS: Phenytoin Susp 100mg/4ml GT SCH (21:09)
[2017-08-07] VITALS: BP 128/79
[2017-08-07 04:00] VITALS: BP 131/79
[2017-08-07] MEDS: Piperacillin/Tazobactam 3.375 GM in NS 110 ML IVPB SCH ×2 (05:03→13:23)
[2017-08-07 07:42] LABS: BASOPHILS % (AUTO) 0.6 % (0.0-2.0); EOSINOPHILS % (AUTO) 5.2 % (0.0-3.0); HEMATOCRIT 27.5 % (42.0-52.0); HEMOGLOBIN 9.8 G/DL (14.2-18.0); LYMPHOCYTES % (AUTO) 11.4 % (20.0-45.0); MEAN CORPUSCULAR VOLUME 83 FL (80-99); MONOCYTES % (AUTO) 8.2 % (1.0-10.0); NEUTROPHILS % (AUTO) 74.7 % (45.0-75.0); PLATELET COUNT 437 K/UL (150-450); RED CELL DISTRIBUTION WIDTH 15.9 % (11.6-14.8); WHITE BLOOD COUNT 16.3 K/UL (4.8-10.8)
[2017-08-07 07:49] LABS: ANION GAP 6 mmol/L (5-15); BLOOD UREA NITROGEN 31 mg/dL (7-18); CALCIUM 8.7 MG/DL (8.5-10.1); CARBON DIOXIDE 23 MMOL/L (21-32); CHLORIDE 99 MMOL/L (98-107); CREATININE 1.4 MG/DL (0.55-1.30); POTASSIUM 4.3 MMOL/L (3.5-5.1); SODIUM 128 MMOL/L (136-145)
[2017-08-07] MEDS: Amiodarone 200mg tab GT SCH ×2 (08:26→20:00)
[2017-08-07] MEDS: levETIRAcetam 500mg/5ml Liquid GT SCH ×2 (08:26→18:04)
[2017-08-07] MEDS: Heparin 5000 units/ml inj SUBQ SCH ×2 (08:27→20:05)
[2017-08-07] MEDS: Pantoprazole Inj IV SCH (08:27)
[2017-08-07 09:00] VITALS: BP 122/74
[2017-08-07 12:00] VITALS: BP 131/76
--- NOTE | 2017-08-07 13:21 | Pulmonology Progress Note ---
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 Dysphagia, Feeding by G-tube seizure disorder functional quadriplegia multiple decub POA: sacral, L heel DM HTN PLAN OF CARE FARZANA vent/trach care, baseline ABG stable, fup with CXR in am pulmonary toilet, suctioning, abx abx, ID follows prob VAP, sputum cx + Pseudomonas MDR, influenza negative, blood x + Staph likely due to line infection, old PICC dc, new PICC inserted 08/03 bone scan + high suspicion for acute OM L calcaneus, will need fci abx - per ID management' febrile-102.2 today; leuk trending up abx management as per ID start IVF with NS monitor Na, renal paraerts, correct lyres as needed wound care as per wound nurse recs podiatry eval noted and appreciated seizure precautions continue Keppra DVT GI prophylaxis Venous Duplex LE negative BP BS monitoring and management bowel regimen supportive care case discussed and evaluated by supervising physician Subjective Allergies: Coded Allergies: No Known Allergies (Unverified , 07/31/17) Subjective leukocytosis trending up, febrile , tachycardic Na-128, creat -1.4 BP stable Objective Last 24 Hour Vital Signs Date Time Temp Pulse Resp B/P (MAP) Pulse Ox O2 Delivery O2 Flow Rate FiO2 08/07/17 12:00 102.2 114 18 131/76 100 Mechanical Ventilator 50 102.2 08/07/17 12:00 114 08/07/17 11:39 102.2 08/07/17 11:12 114 18 50 08/07/17 09:01 114 18 50 08/07/17 09:00 98.8 117 18 122/74 99 Mechanical Ventilator 50 98.8 08/07/17 08:00 118 08/07/17 06:36 118 18 50 08/07/17 05:11 111 18 50 08/07/17 04:00 104 08/07/17 04:00 98.2 81 18 131/79 100 Mechanical Ventilator 50 98.2 08/07/17 02:10 102 18 50 08/07/17 00:00 104 08/07/17 00:00 97.9 78 20 128/79 100 Mechanical Ventilator 50 97.9 08/06/17 21:15 104 18 50 08/06/17 20:00 97.1 89 18 130/71 100 Mechanical Ventilator 50 97.1 08/06/17 20:00 103 08/06/17 19:14 102 18 50 08/06/17 17:13 102 18 50 08/06/17 16:00 99.5 104 18 119/78 100 Mechanical Ventilator 50 99.5 08/06/17 16:00 101 08/06/17 14:45 101 18 50 Intake and Output 08/06/17 08/07/17 19:00 07:00 Intake Total 1122.458 ml 842.5 ml Output Total 900 ml 800 ml Balance 222.458 ml 42.5 ml Free Water 100 ml IV Total 522.458 ml 137.5 ml Tube Feeding 570 ml 605 ml Other 30 ml Output Urine Total 800 ml 700 ml Stool Total 100 ml 100 ml # Bowel Movements 3 Objective General Appearance: no acute distress, bedridden, vent dependent male in NAD on Vent AC 550-18-50% PEEP 5 HEENT: status post trach - Shiley#8, secretions small yellow, thin Respiratory/Chest: no respiratory distress, rhonchi Cardiovascular: normal rate, regular rhythm - ST on tele, PICC intact Abdomen: normal bowel sounds, soft, non tender, G tube Skin: L heel and sacral decub POA Neurologic/Psychiatric: abnormal gait, other - contracted, poorly responsive4 Laboratory Tests 08/07/17 05:30: White Blood Count 16.3H, Red Blood Count 3.30L, Hemoglobin 9.8L, Hematocrit 27.5L, Mean Corpuscular Volume 83, Mean Corpuscular Hemoglobin 29.6, Mean Corpuscular Hemoglobin Concent 35.6, Red Cell Distribution Width 15.9H, Platelet Count 437, Mean Platelet Volume 6.3L, Neutrophils (%) (Auto) 74.7, Lymphocytes (%) (Auto) 11.4L, Monocytes (%) (Auto) 8.2, Eosinophils (%) (Auto) 5.2H, Basophils (%) (Auto) 0.6, Sodium Level 128L, Potassium Level 4.3, Chloride Level 99, Carbon Dioxide Level 23, Anion Gap 6, Blood Urea Nitrogen 31H , Creatinine 1.4H, Estimat Glomerular Filtration Rate 51.2, Glucose Level 109H, Calcium Level 8.7 Current Medications Medications (Trade) Dose Ordered Sig/Serena Route PRN Reason Start Time Stop Time Status Last Admin Dose Admin Acetaminophen (Tylenol) 650 mg Q4H PRN ORAL FEVER 07/31/17 17:00 08/30/17 16:59 08/07/17 11:39 Albuterol/ Ipratropium (Albuterol/ Ipratropium) 3 ml Q4H PRN HHN Shortness of Breath 08/06/17 17:00 08/11/17 23:59 Amiodarone HCl (Cordarone) 200 mg EVERY 12 HOURS GT 07/31/17 21:00 08/30/17 20:59 08/07/17 08:26 Chlorhexidine Gluconate (Ngoc-Hex 2%) 1 applic DAILY@2000 TOPIC 07/31/17 20:00 08/30/17 19:59 08/06/17 21:09 Dextrose (Dextrose 50%) STAT PRN IV Hypoglycemia 07/31/17 17:00 08/30/17 16:59 Gentamicin Protocol (Gentamicin pharmacy to dose) 1 ea DAILYPRN PRN MISC Per rx protocol 08/04/17 14:15 09/03/17 14:14 Gentamicin Sulfate 350 mg/ Sodium Chloride 118.75 ml @ 118.75 mls/hr Q48H IVPB 08/06/17 16:00 08/13/17 15:59 08/06/17 15:56 Heparin Sodium (Porcine) (Heparin 5000 units/ml) 5,000 units EVERY 12 HOURS SUBQ 07/31/17 21:00 08/30/17 20:59 08/07/17 08:27 Heparin Sodium/ Sodium Chloride (Heparin 2000 units/Ns 1000ml premix) 2,000 unit ONCE PRN INJ PICC PLACEMENT 08/03/17 09:00 09/02/17 08:59 Levetiracetam (Keppra) 250 mg BID GT 07/31/17 18:00 08/30/17 17:59 08/07/17 08:26 Lidocaine (Xylocaine 1% MPF 5ml) 30 ml ONCE PRN INJ PICC PLACEMENT 08/03/17 09:00 09/02/17 08:59 Lorazepam (Ativan 2mg/ml 1ml) 2 mg Q2H PRN IV For Anxiety 08/06/17 15:00 08/13/17 23:59 Morphine Sulfate (Morphine Sulfate) 4 mg Q4H PRN IVP Severe Pain (Pain Scale 7-10) 08/06/17 17:00 08/13/17 23:59 Ondansetron HCl (Zofran) 4 mg Q6H PRN IVP Nausea & Vomiting 07/31/17 17:00 08/30/17 16:59 Pantoprazole (Protonix) 40 mg DAILY IV 08/01/17 09:00 08/31/17 08:59 08/07/17 08:27 Phenytoin (Dilantin) 200 mg BEDTIME GT 07/31/17 21:00 08/30/17 20:59 08/06/17 21:09 Piperacillin Sod/ Tazobactam Sod 3.375 gm/Sodium Chloride 110 ml @ 27.5 mls/hr EVERY 8 HOURS IVPB 08/04/17 15:30 08/09/17 15:29 08/07/17 05:03 Polyethylene Glycol (Miralax) 17 gm DAILYPRN PRN ORAL Constipation 07/31/17 17:00 08/30/17 16:59 Vancomycin HCl (Vanco rx to dose) 1 ea DAILYPRN PRN MISC RX TO DOSE PROTOCOL 07/31/17 17:30 08/30/17 17:29 Vancomycin HCl 1 gm/Dextrose 275 ml @ 183.708 mls/hr Q48H IVPB 08/06/17 18:00 08/11/17 17:59 08/06/17 17:56 Lizet Wilks NP ([facility]) Aug 07, 2017 13:21
--- NOTE | 2017-08-07 14:15 | General Surgery Progress Note ---
General Surgery-Progress Note Subjective Additional Comments worsening leukocytosis Objective Last 24 Hour Vital Signs Date Time Temp Pulse Resp B/P (MAP) Pulse Ox O2 Delivery O2 Flow Rate FiO2 08/07/17 13:15 110 18 50 08/07/17 12:35 98.6 08/07/17 12:00 102.2 114 18 131/76 100 Mechanical Ventilator 50 102.2 08/07/17 12:00 114 08/07/17 11:39 102.2 08/07/17 11:12 114 18 50 08/07/17 09:01 114 18 50 08/07/17 09:00 98.8 117 18 122/74 99 Mechanical Ventilator 50 98.8 08/07/17 08:00 118 08/07/17 06:36 118 18 50 08/07/17 05:11 111 18 50 08/07/17 04:00 104 08/07/17 04:00 98.2 81 18 131/79 100 Mechanical Ventilator 50 98.2 08/07/17 02:10 102 18 50 08/07/17 00:00 104 08/07/17 00:00 97.9 78 20 128/79 100 Mechanical Ventilator 50 97.9 08/06/17 21:15 104 18 50 08/06/17 20:00 97.1 89 18 130/71 100 Mechanical Ventilator 50 97.1 08/06/17 20:00 103 08/06/17 19:14 102 18 50 08/06/17 17:13 102 18 50 08/06/17 16:00 99.5 104 18 119/78 100 Mechanical Ventilator 50 99.5 08/06/17 16:00 101 08/06/17 14:45 101 18 50 I&O Intake and Output 08/06/17 08/07/17 19:00 07:00 Intake Total 1122.458 ml 842.5 ml Output Total 900 ml 800 ml Balance 222.458 ml 42.5 ml Free Water 100 ml IV Total 522.458 ml 137.5 ml Tube Feeding 570 ml 605 ml Other 30 ml Output Urine Total 800 ml 700 ml Stool Total 100 ml 100 ml # Bowel Movements 3 Dressing: dry Wound: clean Cardiovascular: RSR Respiratory: decreased breath sounds Abdomen: soft, non-tender, present bowel sounds Extremities: no cyanosis Laboratory Tests Test 08/07/17 05:30 White Blood Count 16.3 K/UL (4.8-10.8) H Red Blood Count 3.30 M/UL (4.70-6.10) L Hemoglobin 9.8 G/DL (14.2-18.0) L Hematocrit 27.5 % (42.0-52.0) L Mean Corpuscular Volume 83 FL (80-99) Mean Corpuscular Hemoglobin 29.6 PG (27.0-31.0) Mean Corpuscular Hemoglobin Concent 35.6 G/DL (32.0-36.0) Red Cell Distribution Width 15.9 % (11.6-14.8) H Platelet Count 437 K/UL (150-450) Mean Platelet Volume 6.3 FL (6.5-10.1) L Neutrophils (%) (Auto) 74.7 % (45.0-75.0) Lymphocytes (%) (Auto) 11.4 % (20.0-45.0) L Monocytes (%) (Auto) 8.2 % (1.0-10.0) Eosinophils (%) (Auto) 5.2 % (0.0-3.0) H Basophils (%) (Auto) 0.6 % (0.0-2.0) Sodium Level 128 MMOL/L (136-145) L Potassium Level 4.3 MMOL/L (3.5-5.1) Chloride Level 99 MMOL/L (98-107) Carbon Dioxide Level 23 MMOL/L (21-32) Anion Gap 6 mmol/L (5-15) Blood Urea Nitrogen 31 mg/dL (7-18) H Creatinine 1.4 MG/DL (0.55-1.30) H Estimat Glomerular Filtration Rate 51.2 mL/min (>60) Glucose Level 109 MG/DL (74-106) H Calcium Level 8.7 MG/DL (8.5-10.1) Plan Problems: (1) Pressure ulcer Assessment & Plan: sacral ulcers with epidermal abrasions, no necrotic tissue or dermal breakdown at this time. no signs of infection from sacral and hip wounds likely pressure in nature. can progress recommend dressings and skin barrier as currently being placed turn q2h keep pressure off wounds unfortunately given patients condition will need aggressive prevention or will progress. fortunately great nursing care being provided and currently stable. thank you for this consultation. will follow with recs. Jesus Martin Aug 07, 2017 14:15
[2017-08-07 16:00] VITALS: BP 120/61
--- NOTE | 2017-08-07 16:32 | Infectious Diseases Prog Note ---
Assessment/Plan Assessment/Plan ASSESSMENT: The patient is a 62-year-old male with: Blood Cx: CoNS probable line infection ( PICC from out side facility was removed on 08/04 ) Leukocytosis, increasing Fever, Diarrhea Clostridium difficile: Neg ? ventilatory-associated pneumonia Scx: MDR PSA (chest x-ray:Considerably worse pleural and parenchymal disease on the right. Slightly worse in pleural and parenchymal disease on the left, over 3 days ) Elevated alkaline phosphatase improving US Borderline gallbladder wall thickening, more likely artifact due to underdistention than real. Influenza: Neg Multiple decubitus of lower extremity. 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 Sacral Wnd : mixed growth ( Colonizer ) ESR: 130 , CRP : 8 BETSY Diabetes. Anemia. GERD. Hypertension. History of TBI. Seizure disorder PLAN: continue the patient on IV Merrem and IV / INH Colistin d# 1 ( Avycase is not provided in this hospital ) DC vancomycin d# 9 / 10 and Zosyn and Gent d # 4 / 10 08/04 SP cefepime day # 5 Monitor blood cultures ( repeat) Monitor chest x-ray. Subjective Allergies: Coded Allergies: No Known Allergies (Unverified , 07/31/17) Subjective febrile Objective Vital Signs Last 24 Hour Vital Signs Date Time Temp Pulse Resp B/P (MAP) Pulse Ox O2 Delivery O2 Flow Rate FiO2 08/07/17 14:41 111 18 50 08/07/17 13:15 110 18 50 08/07/17 12:35 98.6 08/07/17 12:00 102.2 114 18 131/76 100 Mechanical Ventilator 50 102.2 08/07/17 12:00 114 08/07/17 11:39 102.2 08/07/17 11:12 114 18 50 08/07/17 09:01 114 18 50 08/07/17 09:00 98.8 117 18 122/74 99 Mechanical Ventilator 50 98.8 08/07/17 08:00 118 08/07/17 06:36 118 18 50 08/07/17 05:11 111 18 50 08/07/17 04:00 104 08/07/17 04:00 98.2 81 18 131/79 100 Mechanical Ventilator 50 98.2 3/4/18 02:10 102 18 50 08/07/17 00:00 104 08/07/17 00:00 97.9 78 20 128/79 100 Mechanical Ventilator 50 97.9 08/06/17 21:15 104 18 50 08/06/17 20:00 97.1 89 18 130/71 100 Mechanical Ventilator 50 97.1 08/06/17 20:00 103 08/06/17 19:14 102 18 50 08/06/17 17:13 102 18 50 Height (Feet): 6 Height (Inches): 0.00 Weight (Pounds): 145 HEENT: anicteric Respiratory/Chest: no accessory muscle use Cardiovascular: regularly irregular Abdomen: no organomegaly Laboratory Tests Test 08/07/17 05:30 White Blood Count 16.3 K/UL (4.8-10.8) H Red Blood Count 3.30 M/UL (4.70-6.10) L Hemoglobin 9.8 G/DL (14.2-18.0) L Hematocrit 27.5 % (42.0-52.0) L Mean Corpuscular Volume 83 FL (80-99) Mean Corpuscular Hemoglobin 29.6 PG (27.0-31.0) Mean Corpuscular Hemoglobin Concent 35.6 G/DL (32.0-36.0) Red Cell Distribution Width 15.9 % (11.6-14.8) H Platelet Count 437 K/UL (150-450) Mean Platelet Volume 6.3 FL (6.5-10.1) L Neutrophils (%) (Auto) 74.7 % (45.0-75.0) Lymphocytes (%) (Auto) 11.4 % (20.0-45.0) L Monocytes (%) (Auto) 8.2 % (1.0-10.0) Eosinophils (%) (Auto) 5.2 % (0.0-3.0) H Basophils (%) (Auto) 0.6 % (0.0-2.0) Sodium Level 128 MMOL/L (136-145) L Potassium Level 4.3 MMOL/L (3.5-5.1) Chloride Level 99 MMOL/L (98-107) Carbon Dioxide Level 23 MMOL/L (21-32) Anion Gap 6 mmol/L (5-15) Blood Urea Nitrogen 31 mg/dL (7-18) H Creatinine 1.4 MG/DL (0.55-1.30) H Estimat Glomerular Filtration Rate 51.2 mL/min (>60) Glucose Level 109 MG/DL (74-106) H Calcium Level 8.7 MG/DL (8.5-10.1) Current Medications Medications (Trade) Dose Ordered Sig/Serena Route PRN Reason Start Time Stop Time Status Last Admin Dose Admin Acetaminophen (Tylenol) 650 mg Q4H PRN ORAL FEVER 07/31/17 17:00 08/30/17 16:59 08/07/17 11:39 Albuterol/ Ipratropium (Albuterol/ Ipratropium) 3 ml Q4H PRN HHN Shortness of Breath 08/06/17 17:00 08/11/17 23:59 Amiodarone HCl (Cordarone) 200 mg EVERY 12 HOURS GT 07/31/17 21:00 08/30/17 20:59 08/07/17 08:26 Chlorhexidine Gluconate (Ngoc-Hex 2%) 1 applic DAILY@2000 TOPIC 07/31/17 20:00 08/30/17 19:59 08/06/17 21:09 Dextrose (Dextrose 50%) STAT PRN IV Hypoglycemia 07/31/17 17:00 08/30/17 16:59 Gentamicin Protocol (Gentamicin pharmacy to dose) 1 ea DAILYPRN PRN MISC Per rx protocol 08/04/17 14:15 09/03/17 14:14 Gentamicin Sulfate 350 mg/ Sodium Chloride 118.75 ml @ 118.75 mls/hr Q48H IVPB 08/06/17 16:00 08/13/17 15:59 08/06/17 15:56 Heparin Sodium (Porcine) (Heparin 5000 units/ml) 5,000 units EVERY 12 HOURS SUBQ 07/31/17 21:00 08/30/17 20:59 08/07/17 08:27 Heparin Sodium/ Sodium Chloride (Heparin 2000 units/Ns 1000ml premix) 2,000 unit ONCE PRN INJ PICC PLACEMENT 08/03/17 09:00 09/02/17 08:59 Levetiracetam (Keppra) 250 mg BID GT 07/31/17 18:00 08/30/17 17:59 08/07/17 08:26 Lidocaine (Xylocaine 1% MPF 5ml) 30 ml ONCE PRN INJ PICC PLACEMENT 08/03/17 09:00 09/02/17 08:59 Lorazepam (Ativan 2mg/ml 1ml) 2 mg Q2H PRN IV For Anxiety 08/06/17 15:00 08/13/17 23:59 Morphine Sulfate (Morphine Sulfate) 4 mg Q4H PRN IVP Severe Pain (Pain Scale 7-10) 08/06/17 17:00 08/13/17 23:59 Ondansetron HCl (Zofran) 4 mg Q6H PRN IVP Nausea & Vomiting 07/31/17 17:00 08/30/17 16:59 Pantoprazole (Protonix) 40 mg DAILY IV 08/01/17 09:00 08/31/17 08:59 08/07/17 08:27 Phenytoin (Dilantin) 200 mg BEDTIME GT 07/31/17 21:00 08/30/17 20:59 08/06/17 21:09 Piperacillin Sod/ Tazobactam Sod 3.375 gm/Sodium Chloride 110 ml @ 27.5 mls/hr EVERY 8 HOURS IVPB 08/04/17 15:30 08/09/17 15:29 08/07/17 13:23 Polyethylene Glycol (Miralax) 17 gm DAILYPRN PRN ORAL Constipation 07/31/17 17:00 08/30/17 16:59 Sodium Chloride 1,000 ml @ 75 mls/hr [id number] IV 08/07/17 13:15 09/06/17 13:14 08/07/17 14:15 Vancomycin HCl (Vanco rx to dose) 1 ea DAILYPRN PRN MISC RX TO DOSE PROTOCOL 07/31/17 17:30 08/30/17 17:29 Vancomycin HCl 1 gm/Dextrose 275 ml @ 183.708 mls/hr Q48H IVPB 08/06/17 18:00 08/11/17 17:59 08/06/17 17:56 KRYSTIN JAQUEZ M.D. Aug 07, 2017 16:32
[2017-08-07] MEDS ORDERED: NS 275ml ONE ×2 (16:40→17:22)
[2017-08-07] MEDS ORDERED: Tubing IV Secondary IV ONE ×2 (16:40→17:22)
[2017-08-07] MEDS ORDERED: Tubing Blood Filter IV ONE (17:22)
[2017-08-07 20:00] VITALS: BP 134/82
[2017-08-07] MEDS: Phenytoin Susp 100mg/4ml GT SCH (20:01)
[2017-08-07] MEDS: Dyna-Hex 2% Top Sol 2oz TOPIC SCH (20:01)
[2017-08-07] MEDS: Colistin 150mg vial IVP SCH (20:04)
[2017-08-07] MEDS ORDERED: Meropenem 1 GM in NS 55 ML IVPB SCH (22:00)
[2017-08-07] MEDS: Meropenem 2 GM in NS 110 ML IVPB SCH (22:22)
[2017-08-07] MEDS: Colistin for inhalation INH SCH (23:36)
[2017-08-08] VITALS: BP 134/83
[2017-08-08 04:00] VITALS: BP 124/80
[2017-08-08] MEDS: Meropenem 2 GM in NS 110 ML IVPB SCH ×3 (05:15→21:07)
[2017-08-08 07:22] LABS: BASOPHILS % (AUTO) 0.8 % (0.0-2.0); EOSINOPHILS % (AUTO) 5.8 % (0.0-3.0); HEMATOCRIT 24.6 % (42.0-52.0); HEMOGLOBIN 8.5 G/DL (14.2-18.0); LYMPHOCYTES % (AUTO) 17.2 % (20.0-45.0); MEAN CORPUSCULAR VOLUME 84 FL (80-99); MONOCYTES % (AUTO) 10.1 % (1.0-10.0); NEUTROPHILS % (AUTO) 66.1 % (45.0-75.0); PLATELET COUNT 399 K/UL (150-450); RED BLOOD COUNT 2.91 M/UL (4.70-6.10); RED CELL DISTRIBUTION WIDTH 16.5 % (11.6-14.8); WHITE BLOOD COUNT 12.3 K/UL (4.8-10.8)
[2017-08-08 07:39] LABS: ANION GAP 8 mmol/L (5-15); BLOOD UREA NITROGEN 39 mg/dL (7-18); CALCIUM 8.3 MG/DL (8.5-10.1); CARBON DIOXIDE 25 MMOL/L (21-32); CHLORIDE 107 MMOL/L (98-107); CREATININE 1.2 MG/DL (0.55-1.30); POTASSIUM 3.7 MMOL/L (3.5-5.1); SODIUM 140 MMOL/L (136-145)
[2017-08-08 08:00] VITALS: BP 120/73
[2017-08-08] MEDS: Colistin 150mg vial IVP SCH ×2 (09:30→20:36)
[2017-08-08] MEDS: Colistin for inhalation INH SCH ×2 (09:31→22:54)
[2017-08-08] MEDS: levETIRAcetam 500mg/5ml Liquid GT SCH ×2 (10:07→18:31)
[2017-08-08] MEDS: Amiodarone 200mg tab GT SCH ×2 (10:07→20:36)
[2017-08-08] MEDS: Pantoprazole Inj IV SCH (10:07)
[2017-08-08] MEDS: Heparin 5000 units/ml inj SUBQ SCH ×2 (10:09→20:36)
--- NOTE | 2017-08-08 11:39 | Diagnostic Imaging Report ---
Indication: Shortness of breath Technique: One view of the chest Comparison: 08/03/2017 Findings: Right sided pleural effusion and possibly hazy basilar infiltrate persists, unchanged. There is interim considerable improvement of previously demonstrated large left pleural effusion, although a moderate left pleural effusion persists. Interim removal of previously demonstrated right arm PICC, placement of a left arm PICC. Impression: Right-sided pleural effusion and likely associated parenchymal disease is massively changed, over 5 days Improved left-sided pleural effusion Interim change of PICC
[2017-08-08 12:00] VITALS: BP 124/79
--- NOTE | 2017-08-08 12:30 | Pulmonolgy Critical Care Note ---
Critical Care - Asmt/Plan Problems: (1) Sepsis (2) Chronic respiratory failure (3) UTI (urinary tract infection) (4) Feeding by G-tube (5) Pressure ulcer Respiratory: adjust tidal volume Cardiac: start pressors Renal: F/U I&O, keep IV fluid Infectious Disease: continue antibiotics, other - Merrem was just started, check WBC and repeat the cxr. on Colistin as well Gastrointestinal: hold feedings Endocrine: check HgA1C Neurologic: PRN Ativan, PRN Morphine Prophylaxis: Protonix Critical Care - Objective Last 24 Hour Vital Signs Date Time Temp Pulse Resp B/P (MAP) Pulse Ox O2 Delivery O2 Flow Rate FiO2 08/08/17 11:11 107 18 50 08/08/17 09:33 112 18 100 Mechanical Ventilator 50 08/08/17 09:30 50 08/08/17 09:30 110 18 100 Mechanical Ventilator 50 08/08/17 09:11 110 18 50 08/08/17 08:00 50 08/08/17 08:00 98.0 99 18 120/73 100 Mechanical Ventilator 50 98.0 08/08/17 08:00 109 08/08/17 06:42 107 18 50 08/08/17 05:27 111 18 50 08/08/17 04:00 118 08/08/17 04:00 97.7 115 18 124/80 100 Mechanical Ventilator 50 97.7 08/08/17 04:00 50 08/08/17 03:45 118 18 50 08/08/17 01:03 116 18 50 08/08/17 00:00 118 08/08/17 00:00 98.9 117 18 134/83 100 Mechanical Ventilator 50 98.9 08/08/17 00:00 50 08/07/17 23:34 114 21 Mechanical Ventilator 50 08/07/17 23:33 50 08/07/17 23:32 114 21 100 Mechanical Ventilator 50 08/07/17 23:17 114 21 50 08/07/17 20:59 114 21 50 08/07/17 20:00 111 08/07/17 20:00 98.4 112 22 134/82 100 Mechanical Ventilator 50 98.4 08/07/17 20:00 50 08/07/17 19:27 111 24 50 08/07/17 17:04 108 18 50 08/07/17 16:00 98.9 73 19 120/61 99 Mechanical Ventilator 50 98.9 08/07/17 16:00 111 08/07/17 14:41 111 18 50 08/07/17 13:15 110 18 50 08/07/17 12:35 98.6 Status: awake Condition: critical HEENT: atraumatic Lungs: chest wall tender Heart: HR/BP unstable Abdomen: non-tender, feeding tube Extremities: no C/C/E, edema Decubiti: stage Accucheck: 131 Critical Care - Subjective ROS Limited/Unobtainable: Yes Condition: critical EKG Rhythm: Sinus Rhythm FI02: 50 Vent Support Breath Rate: 18 Vent Support Mode: AC Vent Tidal Volume: 550 Sputum Amount: Small PEEP: 5.0 PIP: 22 Tube Feeding Amount: 55 I&O: Intake and Output 08/07/17 08/08/17 19:00 07:00 Intake Total 1193.0 ml 1860 ml Output Total 800 ml 1000 ml Balance 393.0 ml 860 ml Free Water 100 ml IV Total 528.0 ml 1045 ml Tube Feeding 605 ml 715 ml Other 60 ml Output Urine Total 600 ml 1000 ml Stool Total 200 ml # Bowel Movements 1 CXR: Left lung looks better right lung still extensive infiltrate Labs: Laboratory Tests Test 08/08/17 05:00 White Blood Count 12.3 K/UL (4.8-10.8) H Red Blood Count 2.91 M/UL (4.70-6.10) L Hemoglobin 8.5 G/DL (14.2-18.0) L Hematocrit 24.6 % (42.0-52.0) L Mean Corpuscular Volume 84 FL (80-99) Mean Corpuscular Hemoglobin 29.3 PG (27.0-31.0) Mean Corpuscular Hemoglobin Concent 34.7 G/DL (32.0-36.0) Red Cell Distribution Width 16.5 % (11.6-14.8) H Platelet Count 399 K/UL (150-450) Mean Platelet Volume 6.6 FL (6.5-10.1) Neutrophils (%) (Auto) 66.1 % (45.0-75.0) Lymphocytes (%) (Auto) 17.2 % (20.0-45.0) L Monocytes (%) (Auto) 10.1 % (1.0-10.0) H Eosinophils (%) (Auto) 5.8 % (0.0-3.0) H Basophils (%) (Auto) 0.8 % (0.0-2.0) Sodium Level 140 MMOL/L (136-145) # Potassium Level 3.7 MMOL/L (3.5-5.1) Chloride Level 107 MMOL/L (98-107) Carbon Dioxide Level 25 MMOL/L (21-32) Anion Gap 8 mmol/L (5-15) Blood Urea Nitrogen 39 mg/dL (7-18) H Creatinine 1.2 MG/DL (0.55-1.30) Estimat Glomerular Filtration Rate > 60 mL/min (>60) Glucose Level 87 MG/DL (74-106) Calcium Level 8.3 MG/DL (8.5-10.1) NOEL RAE Aug 08, 2017 12:30
--- NOTE | 2017-08-08 13:28 | General Surgery Progress Note ---
General Surgery-Progress Note Subjective Additional Comments no acute events. resting comfortable. Objective Last 24 Hour Vital Signs Date Time Temp Pulse Resp B/P (MAP) Pulse Ox O2 Delivery O2 Flow Rate FiO2 08/08/17 12:48 107 18 50 08/08/17 12:00 98.2 97 18 124/79 100 Mechanical Ventilator 50 98.2 08/08/17 11:11 107 18 50 08/08/17 09:33 112 18 100 Mechanical Ventilator 50 08/08/17 09:30 50 08/08/17 09:30 110 18 100 Mechanical Ventilator 50 08/08/17 09:11 110 18 50 08/08/17 08:00 50 08/08/17 08:00 98.0 99 18 120/73 100 Mechanical Ventilator 50 98.0 08/08/17 08:00 109 08/08/17 06:42 107 18 50 08/08/17 05:27 111 18 50 08/08/17 04:00 118 08/08/17 04:00 97.7 115 18 124/80 100 Mechanical Ventilator 50 97.7 08/08/17 04:00 50 08/08/17 03:45 118 18 50 08/08/17 01:03 116 18 50 08/08/17 00:00 118 08/08/17 00:00 98.9 117 18 134/83 100 Mechanical Ventilator 50 98.9 08/08/17 00:00 50 08/07/17 23:34 114 21 Mechanical Ventilator 50 08/07/17 23:33 50 08/07/17 23:32 114 21 100 Mechanical Ventilator 50 08/07/17 23:17 114 21 50 08/07/17 20:59 114 21 50 08/07/17 20:00 111 08/07/17 20:00 98.4 112 22 134/82 100 Mechanical Ventilator 50 98.4 08/07/17 20:00 50 08/07/17 19:27 111 24 50 08/07/17 17:04 108 18 50 08/07/17 16:00 98.9 73 19 120/61 99 Mechanical Ventilator 50 98.9 08/07/17 16:00 111 08/07/17 14:41 111 18 50 I&O Intake and Output 08/07/17 08/08/17 19:00 07:00 Intake Total 1193.0 ml 1860 ml Output Total 800 ml 1000 ml Balance 393.0 ml 860 ml Free Water 100 ml IV Total 528.0 ml 1045 ml Tube Feeding 605 ml 715 ml Other 60 ml Output Urine Total 600 ml 1000 ml Stool Total 200 ml # Bowel Movements 1 Dressing: dry Wound: clean, dry Cardiovascular: RSR Respiratory: clear Abdomen: soft, flat, non-tender Extremities: no cyanosis Laboratory Tests Test 08/08/17 05:00 White Blood Count 12.3 K/UL (4.8-10.8) H Red Blood Count 2.91 M/UL (4.70-6.10) L Hemoglobin 8.5 G/DL (14.2-18.0) L Hematocrit 24.6 % (42.0-52.0) L Mean Corpuscular Volume 84 FL (80-99) Mean Corpuscular Hemoglobin 29.3 PG (27.0-31.0) Mean Corpuscular Hemoglobin Concent 34.7 G/DL (32.0-36.0) Red Cell Distribution Width 16.5 % (11.6-14.8) H Platelet Count 399 K/UL (150-450) Mean Platelet Volume 6.6 FL (6.5-10.1) Neutrophils (%) (Auto) 66.1 % (45.0-75.0) Lymphocytes (%) (Auto) 17.2 % (20.0-45.0) L Monocytes (%) (Auto) 10.1 % (1.0-10.0) H Eosinophils (%) (Auto) 5.8 % (0.0-3.0) H Basophils (%) (Auto) 0.8 % (0.0-2.0) Sodium Level 140 MMOL/L (136-145) # Potassium Level 3.7 MMOL/L (3.5-5.1) Chloride Level 107 MMOL/L (98-107) Carbon Dioxide Level 25 MMOL/L (21-32) Anion Gap 8 mmol/L (5-15) Blood Urea Nitrogen 39 mg/dL (7-18) H Creatinine 1.2 MG/DL (0.55-1.30) Estimat Glomerular Filtration Rate > 60 mL/min (>60) Glucose Level 87 MG/DL (74-106) Calcium Level 8.3 MG/DL (8.5-10.1) L Plan Problems: (1) Pressure ulcer Assessment & Plan: sacral ulcers with epidermal abrasions, no necrotic tissue or dermal breakdown at this time. no signs of infection from sacral and hip wounds likely pressure in nature. can progress recommend dressings and skin barrier as currently being placed turn q2h keep pressure off wounds unfortunately given patients condition will need aggressive prevention or will progress. fortunately great nursing care being provided and currently stable. thank you for this consultation. will follow with recs. Jesus Martin Aug 08, 2017 13:28
[2017-08-08 16:15] VITALS: BP 119/78
[2017-08-08 20:00] VITALS: BP 128/66
[2017-08-08] MEDS: Dyna-Hex 2% Top Sol 2oz TOPIC SCH (20:34)
[2017-08-08] MEDS: Phenytoin Susp 100mg/4ml GT SCH (20:36)
--- NOTE | 2017-08-08 21:55 | Infectious Diseases Prog Note ---
Assessment/Plan Assessment/Plan ASSESSMENT: The patient is a 62-year-old male with: Blood Cx: CoNS probable line infection ( PICC from out side facility was removed on 08/04 ) Leukocytosis, improving Fever, SP Diarrhea Clostridium difficile: Neg ? ventilatory-associated pneumonia Scx: MDR PSA (chest x-ray:Considerably worse pleural and parenchymal disease on the right. Slightly worse in pleural and parenchymal disease on the left, over 3 days ) Elevated alkaline phosphatase improving US Borderline gallbladder wall thickening, more likely artifact due to underdistention than real. Influenza: Neg Multiple decubitus of lower extremity. 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 Sacral Wnd : mixed growth ( Colonizer ) ESR: 130 , CRP : 8 BETSY Diabetes. Anemia. GERD. Hypertension. History of TBI. Seizure disorder PLAN: continue the patient on IV Merrem and IV / INH Colistin d# 2 ( Avycase is not provided in this hospital ) 3/ SP vancomycin d# 9 and Zosyn and Gent d# 4 3/ SP cefepime day # 5 Monitor blood cultures ( repeat) Monitor chest x-ray. Subjective Allergies: Coded Allergies: No Known Allergies (Unverified , 07/31/17) Subjective afebrile Objective Vital Signs Last 24 Hour Vital Signs Date Time Temp Pulse Resp B/P (MAP) Pulse Ox O2 Delivery O2 Flow Rate FiO2 08/08/17 20:52 113 18 50 08/08/17 19:05 111 18 50 08/08/17 17:06 114 18 50 08/08/17 16:15 98.7 78 119/78 96 Nasal Cannula 98.7 18 08/08/17 16:00 50 08/08/17 16:00 109 08/08/17 15:24 109 19 50 08/08/17 12:48 107 18 50 08/08/17 12:00 50 08/08/17 12:00 98.2 97 18 124/79 100 Mechanical Ventilator 50 98.2 08/08/17 11:11 107 18 50 08/08/17 09:33 112 18 100 Mechanical Ventilator 50 08/08/17 09:30 50 08/08/17 09:30 110 18 100 Mechanical Ventilator 50 08/08/17 09:11 110 18 50 08/08/17 08:00 50 08/08/17 08:00 98.0 99 18 120/73 100 Mechanical Ventilator 50 98.0 08/08/17 08:00 109 08/08/17 06:42 107 18 50 08/08/17 05:27 111 18 50 08/08/17 04:00 118 08/08/17 04:00 97.7 115 18 124/80 100 Mechanical Ventilator 50 97.7 08/08/17 04:00 50 08/08/17 03:45 118 18 50 08/08/17 01:03 116 18 50 08/08/17 00:00 118 08/08/17 00:00 98.9 117 18 134/83 100 Mechanical Ventilator 50 98.9 08/08/17 00:00 50 08/07/17 23:34 114 21 Mechanical Ventilator 50 08/07/17 23:33 50 08/07/17 23:32 114 21 100 Mechanical Ventilator 50 08/07/17 23:17 114 21 50 Height (Feet): 6 Height (Inches): 0.00 Weight (Pounds): 139 HEENT: anicteric Respiratory/Chest: normal breath sounds Cardiovascular: normal peripheral pulses Abdomen: soft, non tender Laboratory Tests Test 08/08/17 05:00 White Blood Count 12.3 K/UL (4.8-10.8) H Red Blood Count 2.91 M/UL (4.70-6.10) L Hemoglobin 8.5 G/DL (14.2-18.0) L Hematocrit 24.6 % (42.0-52.0) L Mean Corpuscular Volume 84 FL (80-99) Mean Corpuscular Hemoglobin 29.3 PG (27.0-31.0) Mean Corpuscular Hemoglobin Concent 34.7 G/DL (32.0-36.0) Red Cell Distribution Width 16.5 % (11.6-14.8) H Platelet Count 399 K/UL (150-450) Mean Platelet Volume 6.6 FL (6.5-10.1) Neutrophils (%) (Auto) 66.1 % (45.0-75.0) Lymphocytes (%) (Auto) 17.2 % (20.0-45.0) L Monocytes (%) (Auto) 10.1 % (1.0-10.0) H Eosinophils (%) (Auto) 5.8 % (0.0-3.0) H Basophils (%) (Auto) 0.8 % (0.0-2.0) Sodium Level 140 MMOL/L (136-145) # Potassium Level 3.7 MMOL/L (3.5-5.1) Chloride Level 107 MMOL/L (98-107) Carbon Dioxide Level 25 MMOL/L (21-32) Anion Gap 8 mmol/L (5-15) Blood Urea Nitrogen 39 mg/dL (7-18) H Creatinine 1.2 MG/DL (0.55-1.30) Estimat Glomerular Filtration Rate > 60 mL/min (>60) Glucose Level 87 MG/DL (74-106) Calcium Level 8.3 MG/DL (8.5-10.1) L Current Medications Medications (Trade) Dose Ordered Sig/Serena Route PRN Reason Start Time Stop Time Status Last Admin Dose Admin Acetaminophen (Tylenol) 650 mg Q4H PRN ORAL FEVER 07/31/17 17:00 08/30/17 16:59 08/07/17 11:39 Albuterol/ Ipratropium (Albuterol/ Ipratropium) 3 ml Q4H PRN HHN Shortness of Breath 08/06/17 17:00 08/11/17 23:59 Amiodarone HCl (Cordarone) 200 mg EVERY 12 HOURS GT 07/31/17 21:00 08/30/17 20:59 08/08/17 20:36 Chlorhexidine Gluconate (Ngoc-Hex 2%) 1 applic DAILY@1999 TOPIC 07/31/17 20:00 08/30/17 19:59 08/08/17 20:34 Colistimethate Sodium (Colistin *inhalation use only*) 150 mg Q12HR@10,22 INH 08/07/17 22:00 08/14/17 21:59 08/08/17 09:31 Colistimethate Sodium (Colistin) 75 mg EVERY 12 HOURS IVP 08/07/17 21:00 08/14/17 20:59 08/08/17 20:36 Dextrose (Dextrose 50%) STAT PRN IV Hypoglycemia 07/31/17 17:00 08/30/17 16:59 Heparin Sodium (Porcine) (Heparin 5000 units/ml) 5,000 units EVERY 12 HOURS SUBQ 07/31/17 21:00 08/30/17 20:59 08/08/17 20:36 Heparin Sodium/ Sodium Chloride (Heparin 2000 units/Ns 1000ml premix) 2,000 unit ONCE PRN INJ PICC PLACEMENT 08/03/17 09:00 09/02/17 08:59 Levetiracetam (Keppra) 250 mg BID GT 07/31/17 18:00 08/30/17 17:59 08/08/17 18:31 Lidocaine (Xylocaine 1% MPF 5ml) 30 ml ONCE PRN INJ PICC PLACEMENT 08/03/17 09:00 09/02/17 08:59 Lorazepam (Ativan 2mg/ml 1ml) 2 mg Q2H PRN IV For Anxiety 08/06/17 15:00 08/13/17 23:59 Meropenem 2 gm/ Sodium Chloride 110 ml @ 220 mls/hr Q8HR IVPB 08/07/17 22:00 08/12/17 21:59 08/08/17 21:07 Morphine Sulfate (Morphine Sulfate) 4 mg Q4H PRN IVP Severe Pain (Pain Scale 7-10) 08/06/17 17:00 08/13/17 23:59 Ondansetron HCl (Zofran) 4 mg Q6H PRN IVP Nausea & Vomiting 07/31/17 17:00 08/30/17 16:59 Pantoprazole (Protonix) 40 mg DAILY IV 08/01/17 09:00 08/31/17 08:59 08/08/17 10:07 Phenytoin (Dilantin) 200 mg BEDTIME GT 07/31/17 21:00 08/30/17 20:59 08/08/17 20:36 Polyethylene Glycol (Miralax) 17 gm DAILYPRN PRN ORAL Constipation 07/31/17 17:00 08/30/17 16:59 Sodium Chloride 1,000 ml @ 75 mls/hr [id number] IV 08/07/17 13:15 09/06/17 13:14 08/08/17 15:46 KRYSTIN JAQUEZ M.D. Aug 08, 2017 21:55
[2017-08-09] VITALS (7 sets, daily range): BP systolic 91–114; BP diastolic 53–74
[2017-08-09] MEDS: Meropenem 2 GM in NS 110 ML IVPB SCH ×3 (05:00→22:05)
[2017-08-09 06:22] LABS: BASOPHILS % (AUTO) 1.3 % (0.0-2.0); EOSINOPHILS % (AUTO) 7.3 % (0.0-3.0); HEMATOCRIT 24.8 % (42.0-52.0); HEMOGLOBIN 8.5 G/DL (14.2-18.0); LYMPHOCYTES % (AUTO) 17.3 % (20.0-45.0); MEAN CORPUSCULAR VOLUME 85 FL (80-99); NEUTROPHILS % (AUTO) 64.1 % (45.0-75.0); PLATELET COUNT 383 K/UL (150-450); RED BLOOD COUNT 2.92 M/UL (4.70-6.10); RED CELL DISTRIBUTION WIDTH 15.9 % (11.6-14.8); WHITE BLOOD COUNT 11.3 K/UL (4.8-10.8)
[2017-08-09 06:42] LABS: ALANINE AMINOTRANSFERASE 24 U/L (12-78); ALBUMIN 1.3 G/DL (3.4-5.0); ALBUMIN/GLOBULIN RATIO 0.2 (1.0-2.7); ALKALINE PHOSPHATASE 243 U/L (46-116); ANION GAP 8 mmol/L (5-15); ASPARTATE AMINO TRANSFERASE 65 U/L (15-37); BILIRUBIN,TOTAL 0.3 MG/DL (0.2-1.0); BLOOD UREA NITROGEN 41 mg/dL (7-18); CALCIUM 9.4 MG/DL (8.5-10.1); CARBON DIOXIDE 24 MMOL/L (21-32); CHLORIDE 106 MMOL/L (98-107); CREATININE 1.2 MG/DL (0.55-1.30); POTASSIUM 3.8 MMOL/L (3.5-5.1); SODIUM 137 MMOL/L (136-145)
[2017-08-09] MEDS: Colistin for inhalation INH SCH ×2 (07:23→20:18)
--- NOTE | 2017-08-09 07:54 | Pulmonolgy Critical Care Note ---
Critical Care - Asmt/Plan Problems: (1) Sepsis (2) Chronic respiratory failure (3) UTI (urinary tract infection) (4) Feeding by G-tube (5) Pressure ulcer Respiratory: monitor respiratory rate, adjust FIO2, CXR Cardiac: continue to monitor HR/BP Renal: F/U I&O Infectious Disease: check cultures Gastrointestinal: continue feedings/current rate Endocrine: monitor blood sugar, continue sliding scale insulin Hematologic: monitor H/H, transfuse if hgb<8.5 Neurologic: PRN Ativan, keep patient comfortable Affect: PRN ativan Prophylaxis: Protonix Notes Reviewed: street light mechanic, cardio Discussed with: nurses, consultants, case foldercorporate security manager - Objective Last 24 Hour Vital Signs Date Time Temp Pulse Resp B/P (MAP) Pulse Ox O2 Delivery O2 Flow Rate FiO2 08/09/17 07:28 105 18 100 Mechanical Ventilator 50 08/09/17 07:20 101 20 100 Mechanical Ventilator 50 08/09/17 07:19 101 20 50 08/09/17 04:39 102 18 50 08/09/17 04:00 100.5 101 114/74 100 Nasal Cannula 100.5 18 08/09/17 04:00 50 08/09/17 04:00 102 08/09/17 03:30 101 18 50 08/09/17 01:45 105 18 50 08/09/17 00:00 50 08/09/17 00:00 99.3 107 114/60 100 Nasal Cannula 99.3 18 08/09/17 00:00 114 08/08/17 23:29 117 18 100 Mechanical Ventilator 50 08/08/17 23:29 50 08/08/17 23:19 99.3 08/08/17 22:54 117 18 100 Mechanical Ventilator 50 08/08/17 22:52 117 18 50 08/08/17 22:20 99.3 08/08/17 20:52 113 18 50 08/08/17 20:00 99.3 105 128/66 100 Nasal Cannula 99.3 28 08/08/17 20:00 111 08/08/17 20:00 50 08/08/17 19:05 111 18 50 08/08/17 17:06 114 18 50 08/08/17 16:15 98.7 78 119/78 96 Nasal Cannula 98.7 18 08/08/17 16:00 50 08/08/17 16:00 109 08/08/17 15:24 109 19 50 08/08/17 12:48 107 18 50 08/08/17 12:00 50 08/08/17 12:00 98.2 97 18 124/79 100 Mechanical Ventilator 50 98.2 08/08/17 11:11 107 18 50 08/08/17 09:33 112 18 100 Mechanical Ventilator 50 08/08/17 09:30 50 08/08/17 09:30 110 18 100 Mechanical Ventilator 50 08/08/17 09:11 110 18 50 08/08/17 08:00 50 08/08/17 08:00 98.0 99 18 120/73 100 Mechanical Ventilator 50 98.0 08/08/17 08:00 109 Status: obtunded HEENT: atraumatic Neck: full ROM Lungs: clear Heart: HR/BP stable, HR/BP unstable Abdomen: soft, active bowel sounds Extremities: no C/C/E Decubiti: location, stage Accucheck: 131 Critical Care - Subjective ROS Limited/Unobtainable: Yes EKG Rhythm: Sinus Rhythm FI02: 50 Vent Support Breath Rate: 18 Vent Support Mode: AC Vent Tidal Volume: 550 Sputum Amount: Small PEEP: 5.0 PIP: 23 Tube Feeding Amount: 45 I&O: Intake and Output 08/08/17 08/09/17 19:00 07:00 Intake Total 645 ml 1685 ml Output Total 800 ml 100 ml Balance -155 ml 1585 ml IV Total 75 ml 1265 ml Tube Feeding 540 ml 360 ml Other 30 ml 60 ml Output Urine Total 800 ml 0 ml Stool Total 100 ml CXR: Right effusion Labs: Laboratory Tests Test 08/09/17 04:00 White Blood Count 11.3 K/UL (4.8-10.8) H Red Blood Count 2.92 M/UL (4.70-6.10) L Hemoglobin 8.5 G/DL (14.2-18.0) L Hematocrit 24.8 % (42.0-52.0) L Mean Corpuscular Volume 85 FL (80-99) Mean Corpuscular Hemoglobin 29.1 PG (27.0-31.0) Mean Corpuscular Hemoglobin Concent 34.3 G/DL (32.0-36.0) Red Cell Distribution Width 15.9 % (11.6-14.8) H Platelet Count 383 K/UL (150-450) Mean Platelet Volume 6.2 FL (6.5-10.1) L Neutrophils (%) (Auto) 64.1 % (45.0-75.0) Lymphocytes (%) (Auto) 17.3 % (20.0-45.0) L Monocytes (%) (Auto) 10.0 % (1.0-10.0) Eosinophils (%) (Auto) 7.3 % (0.0-3.0) H Basophils (%) (Auto) 1.3 % (0.0-2.0) Sodium Level 137 MMOL/L (136-145) Potassium Level 3.8 MMOL/L (3.5-5.1) Chloride Level 106 MMOL/L (98-107) Carbon Dioxide Level 24 MMOL/L (21-32) Anion Gap 8 mmol/L (5-15) Blood Urea Nitrogen 41 mg/dL (7-18) H Creatinine 1.2 MG/DL (0.55-1.30) Estimat Glomerular Filtration Rate > 60 mL/min (>60) Glucose Level 84 MG/DL (74-106) Calcium Level 9.4 MG/DL (8.5-10.1) Total Bilirubin 0.3 MG/DL (0.2-1.0) Aspartate Amino Transf (AST/SGOT) 65 U/L (15-37) H Alanine Aminotransferase (ALT/SGPT) 24 U/L (12-78) Alkaline Phosphatase 243 U/L (46-116) H Pro-B-Type Natriuretic Peptide 622 pg/mL (0-125) H Total Protein 7.4 G/DL (6.4-8.2) Albumin 1.3 G/DL (3.4-5.0) L Globulin 6.1 g/dL Albumin/Globulin Ratio 0.2 (1.0-2.7) L NOEL MICHELLE Aug 09, 2017 07:54
[2017-08-09] MEDS: Amiodarone 200mg tab GT SCH ×2 (09:23→20:32)
[2017-08-09] MEDS: levETIRAcetam 500mg/5ml Liquid GT SCH ×2 (09:24→17:55)
[2017-08-09] MEDS: Pantoprazole Inj IV SCH (09:25)
[2017-08-09] MEDS: Colistin 150mg vial IVP SCH ×2 (09:25→20:32)
[2017-08-09] MEDS: Heparin 5000 units/ml inj SUBQ SCH ×2 (09:29→20:34)
--- NOTE | 2017-08-09 10:47 | Infectious Diseases Prog Note ---
Assessment/Plan Assessment/Plan ASSESSMENT: The patient is a 62-year-old male with: Blood Cx: CoNS probable line infection ( PICC from out side facility was removed on 08/04 ) Leukocytosis, improving Fever, low garde Diarrhea Clostridium difficile: Neg ? ventilatory-associated pneumonia Scx: MDR PSA (chest x-ray:Considerably worse pleural and parenchymal disease on the right. Slightly worse in pleural and parenchymal disease on the left, over 3 days ) Elevated alkaline phosphatase improving US Borderline gallbladder wall thickening, more likely artifact due to underdistention than real. Influenza: Neg Multiple decubitus of lower extremity. 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 Sacral Wnd : mixed growth ( Colonizer ) ESR: 130 , CRP : 8 BETSY Diabetes. Anemia. GERD. Hypertension. History of TBI. Seizure disorder PLAN: continue the patient on IV Merrem and IV / INH Colistin d# 3 ( Avycase is not provided in this hospital ) 3/ SP vancomycin d# 9 and Zosyn and Gent d# 4 3/ SP cefepime day # 5 Monitor blood cultures ( repeat) Monitor chest x-ray. Subjective Allergies: Coded Allergies: No Known Allergies (Unverified , 07/31/17) Subjective afebrile Objective Vital Signs Last 24 Hour Vital Signs Date Time Temp Pulse Resp B/P (MAP) Pulse Ox O2 Delivery O2 Flow Rate FiO2 08/09/17 09:16 103 18 50 08/09/17 07:28 105 18 100 Mechanical Ventilator 50 08/09/17 07:20 101 20 100 Mechanical Ventilator 50 08/09/17 07:19 101 20 50 08/09/17 04:39 102 18 50 08/09/17 04:00 100.5 101 114/74 100 Nasal Cannula 100.5 18 08/09/17 04:00 50 08/09/17 04:00 102 08/09/17 03:30 101 18 50 08/09/17 01:45 105 18 50 08/09/17 00:00 50 08/09/17 00:00 99.3 107 114/60 100 Nasal Cannula 99.3 18 08/09/17 00:00 114 08/08/17 23:29 117 18 100 Mechanical Ventilator 50 08/08/17 23:29 50 08/08/17 23:19 99.3 08/08/17 22:54 117 18 100 Mechanical Ventilator 50 08/08/17 22:52 117 18 50 08/08/17 22:20 99.3 08/08/17 20:52 113 18 50 08/08/17 20:00 99.3 105 128/66 100 Nasal Cannula 99.3 28 08/08/17 20:00 111 08/08/17 20:00 50 08/08/17 19:05 111 18 50 08/08/17 17:06 114 18 50 08/08/17 16:15 98.7 78 119/78 96 Nasal Cannula 98.7 18 08/08/17 16:00 50 08/08/17 16:00 109 08/08/17 15:24 109 19 50 08/08/17 12:48 107 18 50 08/08/17 12:00 50 08/08/17 12:00 98.2 97 18 124/79 100 Mechanical Ventilator 50 98.2 08/08/17 11:11 107 18 50 Height (Feet): 6 Height (Inches): 0.00 Weight (Pounds): 145 HEENT: mucous membranes moist Respiratory/Chest: no respiratory distress Cardiovascular: regularly irregular Abdomen: no organomegaly Laboratory Tests Test 08/09/17 04:00 White Blood Count 11.3 K/UL (4.8-10.8) H Red Blood Count 2.92 M/UL (4.70-6.10) L Hemoglobin 8.5 G/DL (14.2-18.0) L Hematocrit 24.8 % (42.0-52.0) L Mean Corpuscular Volume 85 FL (80-99) Mean Corpuscular Hemoglobin 29.1 PG (27.0-31.0) Mean Corpuscular Hemoglobin Concent 34.3 G/DL (32.0-36.0) Red Cell Distribution Width 15.9 % (11.6-14.8) H Platelet Count 383 K/UL (150-450) Mean Platelet Volume 6.2 FL (6.5-10.1) L Neutrophils (%) (Auto) 64.1 % (45.0-75.0) Lymphocytes (%) (Auto) 17.3 % (20.0-45.0) L Monocytes (%) (Auto) 10.0 % (1.0-10.0) Eosinophils (%) (Auto) 7.3 % (0.0-3.0) H Basophils (%) (Auto) 1.3 % (0.0-2.0) Sodium Level 137 MMOL/L (136-145) Potassium Level 3.8 MMOL/L (3.5-5.1) Chloride Level 106 MMOL/L (98-107) Carbon Dioxide Level 24 MMOL/L (21-32) Anion Gap 8 mmol/L (5-15) Blood Urea Nitrogen 41 mg/dL (7-18) H Creatinine 1.2 MG/DL (0.55-1.30) Estimat Glomerular Filtration Rate > 60 mL/min (>60) Glucose Level 84 MG/DL (74-106) Calcium Level 9.4 MG/DL (8.5-10.1) Total Bilirubin 0.3 MG/DL (0.2-1.0) Aspartate Amino Transf (AST/SGOT) 65 U/L (15-37) H Alanine Aminotransferase (ALT/SGPT) 24 U/L (12-78) Alkaline Phosphatase 243 U/L (46-116) H Pro-B-Type Natriuretic Peptide 622 pg/mL (0-125) H Total Protein 7.4 G/DL (6.4-8.2) Albumin 1.3 G/DL (3.4-5.0) L Globulin 6.1 g/dL Albumin/Globulin Ratio 0.2 (1.0-2.7) L Current Medications Medications (Trade) Dose Ordered Sig/Serena Route PRN Reason Start Time Stop Time Status Last Admin Dose Admin Acetaminophen (Tylenol) 650 mg Q4H PRN ORAL FEVER 07/31/17 17:00 08/30/17 16:59 08/08/17 22:20 Albuterol/ Ipratropium (Albuterol/ Ipratropium) 3 ml Q4H PRN HHN Shortness of Breath 08/06/17 17:00 08/11/17 23:59 Amiodarone HCl (Cordarone) 200 mg EVERY 12 HOURS GT 07/31/17 21:00 08/30/17 20:59 08/09/17 09:23 Chlorhexidine Gluconate (Ngoc-Hex 2%) 1 applic DAILY@1999 TOPIC 07/31/17 20:00 08/30/17 19:59 08/08/17 20:34 Colistimethate Sodium (Colistin *inhalation use only*) 150 mg Q12HR@10,22 INH 08/07/17 22:00 08/14/17 21:59 08/09/17 07:23 Colistimethate Sodium (Colistin) 75 mg EVERY 12 HOURS IVP 08/07/17 21:00 08/14/17 20:59 08/09/17 09:25 Dextrose (Dextrose 50%) STAT PRN IV Hypoglycemia 07/31/17 17:00 08/30/17 16:59 Heparin Sodium (Porcine) (Heparin 5000 units/ml) 5,000 units EVERY 12 HOURS SUBQ 07/31/17 21:00 08/30/17 20:59 08/09/17 09:29 Heparin Sodium/ Sodium Chloride (Heparin 2000 units/Ns 1000ml premix) 2,000 unit ONCE PRN INJ PICC PLACEMENT 08/03/17 09:00 09/02/17 08:59 Levetiracetam (Keppra) 250 mg BID GT 07/31/17 18:00 08/30/17 17:59 08/09/17 09:24 Lidocaine (Xylocaine 1% MPF 5ml) 30 ml ONCE PRN INJ PICC PLACEMENT 08/03/17 09:00 09/02/17 08:59 Lorazepam (Ativan 2mg/ml 1ml) 2 mg Q2H PRN IV For Anxiety 08/06/17 15:00 08/13/17 23:59 Meropenem 2 gm/ Sodium Chloride 110 ml @ 220 mls/hr Q8HR IVPB 08/07/17 22:00 08/12/17 21:59 08/09/17 05:00 Morphine Sulfate (Morphine Sulfate) 4 mg Q4H PRN IVP Severe Pain (Pain Scale 7-10) 08/06/17 17:00 08/13/17 23:59 Ondansetron HCl (Zofran) 4 mg Q6H PRN IVP Nausea & Vomiting 07/31/17 17:00 08/30/17 16:59 Pantoprazole (Protonix) 40 mg DAILY IV 08/01/17 09:00 08/31/17 08:59 08/09/17 09:25 Phenytoin (Dilantin) 200 mg BEDTIME GT 07/31/17 21:00 08/30/17 20:59 08/08/17 20:36 Polyethylene Glycol (Miralax) 17 gm DAILYPRN PRN ORAL Constipation 07/31/17 17:00 08/30/17 16:59 Sodium Chloride 1,000 ml @ 75 mls/hr [id number] IV 08/07/17 13:15 09/06/17 13:14 08/09/17 05:00 KRYSTIN JAQUEZ M.D. Aug 09, 2017 10:46
--- NOTE | 2017-08-09 11:21 | Diagnostic Imaging Report ---
Indication: Dyspnea Comparison: 08/08/2017 A single view chest radiograph was obtained. Findings: Heart size is normal and unchanged. There is a hazy confluent right basilar density obscuring the right hemidiaphragm again demonstrated. Tracheostomy and PICC line are stable. IMPRESSION: No interval change. Suspect right pleural effusion and or parenchymal disease.
[2017-08-09] MEDS: Phenytoin Susp 100mg/4ml GT SCH ×2 (17:02→22:05)
[2017-08-09] MEDS: Dyna-Hex 2% Top Sol 2oz TOPIC SCH (20:32)
[2017-08-10] VITALS: BP 110/67
[2017-08-10 04:00] VITALS: BP 104/62
[2017-08-10] MEDS: Meropenem 2 GM in NS 110 ML IVPB SCH ×3 (05:09→21:13)
[2017-08-10 06:57] LABS: EOSINOPHILS % (AUTO) 8.9 % (0.0-3.0); HEMATOCRIT 23.6 % (42.0-52.0); HEMOGLOBIN 8.4 G/DL (14.2-18.0); LYMPHOCYTES % (AUTO) 20.1 % (20.0-45.0); MEAN CORPUSCULAR VOLUME 84 FL (80-99); PLATELET COUNT 373 K/UL (150-450); RED BLOOD COUNT 2.81 M/UL (4.70-6.10); RED CELL DISTRIBUTION WIDTH 16.3 % (11.6-14.8); WHITE BLOOD COUNT 11.6 K/UL (4.8-10.8)
[2017-08-10 07:26] LABS: ALANINE AMINOTRANSFERASE 34 U/L (12-78); ALBUMIN 1.4 G/DL (3.4-5.0); ALBUMIN/GLOBULIN RATIO 0.2 (1.0-2.7); ALKALINE PHOSPHATASE 247 U/L (46-116); ANION GAP 9 mmol/L (5-15); ASPARTATE AMINO TRANSFERASE 79 U/L (15-37); BILIRUBIN,TOTAL 0.3 MG/DL (0.2-1.0); BLOOD UREA NITROGEN 37 mg/dL (7-18); CALCIUM 9.7 MG/DL (8.5-10.1); CARBON DIOXIDE 23 MMOL/L (21-32); CHLORIDE 108 MMOL/L (98-107); CREATININE 1.5 MG/DL (0.55-1.30); PHOSPHORUS 3.1 MG/DL (2.5-4.9); POTASSIUM 3.4 MMOL/L (3.5-5.1); SODIUM 140 MMOL/L (136-145)
--- NOTE | 2017-08-10 07:26 | Pulmonolgy Critical Care Note ---
Critical Care - Asmt/Plan Problems: (1) Sepsis (2) Chronic respiratory failure (3) UTI (urinary tract infection) (4) Feeding by G-tube (5) Pressure ulcer Respiratory: monitor respiratory rate, adjust FIO2, CXR Cardiac: continue to monitor HR/BP Renal: F/U I&O, keep IV fluid Infectious Disease: check cultures Gastrointestinal: continue feedings/current rate Endocrine: monitor blood sugar, check TSH, continue sliding scale insulin Hematologic: transfuse if hgb<8.5 Neurologic: PRN Ativan, keep patient comfortable Affect: PRN ativan Prophylaxis: Heparin Notes Reviewed: cardio Discussed with: nurses, consultants, 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 - Objective Last 24 Hour Vital Signs Date Time Temp Pulse Resp B/P (MAP) Pulse Ox O2 Delivery O2 Flow Rate FiO2 08/10/17 05:10 104 21 50 08/10/17 04:00 98.6 109 104/62 99 Mechanical Ventilator 50 98.6 18 08/10/17 04:00 50 08/10/17 04:00 109 08/10/17 03:21 99 19 50 08/10/17 01:25 103 18 50 08/10/17 00:00 98.2 117 110/67 100 Mechanical Ventilator 50 98.2 18 08/10/17 00:00 117 08/09/17 22:54 100 18 50 08/09/17 20:55 104 18 50 08/09/17 20:00 50 08/09/17 20:00 98.8 120 95/54 100 Mechanical Ventilator 50 98.8 18 08/09/17 20:00 117 08/09/17 19:29 108 18 100 Mechanical Ventilator 50 08/09/17 19:21 105 18 100 Mechanical Ventilator 50 08/09/17 19:21 50 08/09/17 19:08 102 19 50 08/09/17 16:30 106 18 50 08/09/17 16:00 50 08/09/17 16:00 97.0 112 91/59 100 Mechanical Ventilator 50 97.0 19 08/09/17 16:00 113 08/09/17 15:13 110 18 50 08/09/17 13:16 103 18 50 08/09/17 12:01 108 08/09/17 12:00 50 08/09/17 12:00 96.8 107 105/69 98 Mechanical Ventilator 50 96.8 19 08/09/17 11:14 100 18 50 08/09/17 09:16 103 18 50 08/09/17 08:01 98.0 62 113/53 98 Nasal Cannula 98.0 18 08/09/17 08:00 102 08/09/17 08:00 50 08/09/17 07:28 105 18 100 Mechanical Ventilator 50 Status: awake Condition: critical, grave Neck: full ROM Lungs: chest wall tender Heart: HR/BP stable, regular Abdomen: soft, active bowel sounds, feeding tube Extremities: edema Decubiti: location Accucheck: 131 Critical Care - Subjective ROS Limited/Unobtainable: No Condition: critical EKG Rhythm: Sinus Rhythm FI02: 50 Vent Support Breath Rate: 18 Vent Support Mode: AC Vent Tidal Volume: 550 Sputum Amount: Small PEEP: 5.0 PIP: 22 Tube Feeding Amount: 45 I&O: Intake and Output 08/09/17 08/10/17 19:00 07:00 Intake Total 995 ml 1590 ml Output Total 1100 ml 900 ml Balance -105 ml 690 ml Free Water 200 ml IV Total 1120 ml Tube Feeding 585 ml 410 ml Other 210 ml 60 ml Output Urine Total 1100 ml 850 ml Stool Total 50 ml # Bowel Movements 50 CXR: no change Labs: Laboratory Tests Test 08/10/17 04:00 White Blood Count 11.6 K/UL (4.8-10.8) H Red Blood Count 2.81 M/UL (4.70-6.10) L Hemoglobin 8.4 G/DL (14.2-18.0) L Hematocrit 23.6 % (42.0-52.0) L Mean Corpuscular Volume 84 FL (80-99) Mean Corpuscular Hemoglobin 29.8 PG (27.0-31.0) Mean Corpuscular Hemoglobin Concent 35.5 G/DL (32.0-36.0) Red Cell Distribution Width 16.3 % (11.6-14.8) H Platelet Count 373 K/UL (150-450) Mean Platelet Volume 6.2 FL (6.5-10.1) L Neutrophils (%) (Auto) 60.0 % (45.0-75.0) Lymphocytes (%) (Auto) 20.1 % (20.0-45.0) Monocytes (%) (Auto) 10.0 % (1.0-10.0) Eosinophils (%) (Auto) 8.9 % (0.0-3.0) H Basophils (%) (Auto) 1.0 % (0.0-2.0) Sodium Level Pending Potassium Level Pending Chloride Level Pending Carbon Dioxide Level Pending Blood Urea Nitrogen Pending Creatinine Pending Estimat Glomerular Filtration Rate Pending Glucose Level Pending Calcium Level Pending Phosphorus Level Pending Magnesium Level Pending Total Bilirubin Pending Aspartate Amino Transf (AST/SGOT) Pending Alanine Aminotransferase (ALT/SGPT) Pending Alkaline Phosphatase Pending Total Protein Pending Albumin Pending Globulin Pending NOEL MICHELLE Aug 10, 2017 07:26
[2017-08-10 08:00] VITALS: BP 120/68
[2017-08-10] MEDS: Phenytoin Susp 100mg/4ml GT SCH ×2 (08:52→21:07)
[2017-08-10] MEDS: Amiodarone 200mg tab GT SCH ×2 (08:52→21:07)
[2017-08-10] MEDS: Colistin 150mg vial IVP SCH ×2 (08:53→22:55)
[2017-08-10] MEDS: Pantoprazole Inj IV SCH (08:53)
[2017-08-10] MEDS: levETIRAcetam 500mg/5ml Liquid GT SCH ×2 (08:53→17:37)
[2017-08-10] MEDS: Heparin 5000 units/ml inj SUBQ SCH ×2 (08:54→21:09)
[2017-08-10] MEDS: Colistin for inhalation INH SCH ×2 (09:38→21:17)
[2017-08-10 12:00] VITALS: BP 107/56
--- NOTE | 2017-08-10 15:02 | Infectious Diseases Prog Note ---
Assessment/Plan Assessment/Plan ASSESSMENT: The patient is a 62-year-old male with: Blood Cx: CoNS probable line infection ( PICC from out side facility was removed on 08/04 ) Leukocytosis, improving Fever, low garde Diarrhea Clostridium difficile: Neg ? ventilatory-associated pneumonia Scx: MDR PSA (chest x-ray:Considerably worse pleural and parenchymal disease on the right. Slightly worse in pleural and parenchymal disease on the left, over 3 days ) Elevated alkaline phosphatase improving US Borderline gallbladder wall thickening, more likely artifact due to underdistention than real. Influenza: Neg Multiple decubitus of lower extremity. 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 Sacral Wnd : mixed growth ( Colonizer ) ESR: 130 , CRP : 8 BETSY Diabetes. Anemia. GERD. Hypertension. History of TBI. Seizure disorder PLAN: continue the patient on IV Merrem and IV / INH Colistin d# 4 / 42 ( treatment of osteo and Pneumonia ) ( Avycase is not provided in this hospital ) 3/ SP vancomycin d# 9 and Zosyn and Gent d# 4 3/ SP cefepime day # 5 Monitor blood cultures ( repeat) Monitor chest x-ray. not ready for DC, as Cr and temp is increasing Subjective Allergies: Coded Allergies: No Known Allergies (Unverified , 07/31/17) Subjective afebrile Objective Vital Signs Last 24 Hour Vital Signs Date Time Temp Pulse Resp B/P (MAP) Pulse Ox O2 Delivery O2 Flow Rate FiO2 08/10/17 14:18 100.0 08/10/17 13:56 106 18 50 08/10/17 12:00 50 08/10/17 12:00 100.0 108 107/56 100 Mechanical Ventilator 50 100.0 20 08/10/17 12:00 107 08/10/17 11:32 108 18 50 08/10/17 09:58 107 18 100 Mechanical Ventilator 50 08/10/17 09:39 104 20 50 08/10/17 09:38 104 20 100 Mechanical Ventilator 50 08/10/17 08:45 107 08/10/17 08:00 50 08/10/17 08:00 99.5 110 120/68 99 Mechanical Ventilator 50 99.5 20 08/10/17 07:57 109 18 50 08/10/17 05:10 104 21 50 08/10/17 04:00 98.6 109 104/62 99 Mechanical Ventilator 50 98.6 18 08/10/17 04:00 50 08/10/17 04:00 109 08/10/17 03:21 99 19 50 08/10/17 01:25 103 18 50 08/10/17 00:00 98.2 117 110/67 100 Mechanical Ventilator 50 98.2 18 08/10/17 00:00 117 08/09/17 22:54 100 18 50 08/09/17 20:55 104 18 50 08/09/17 20:00 50 08/09/17 20:00 98.8 120 95/54 100 Mechanical Ventilator 50 98.8 18 08/09/17 20:00 117 08/09/17 19:29 108 18 100 Mechanical Ventilator 50 08/09/17 19:21 105 18 100 Mechanical Ventilator 50 08/09/17 19:21 50 08/09/17 19:08 102 19 50 08/09/17 16:30 106 18 50 08/09/17 16:00 50 08/09/17 16:00 97.0 112 91/59 100 Mechanical Ventilator 50 97.0 19 08/09/17 16:00 113 08/09/17 15:13 110 18 50 Height (Feet): 6 Height (Inches): 0.00 Weight (Pounds): 140 Respiratory/Chest: no accessory muscle use Cardiovascular: regular rhythm Abdomen: no organomegaly Laboratory Tests Test 08/10/17 04:00 White Blood Count 11.6 K/UL (4.8-10.8) H Red Blood Count 2.81 M/UL (4.70-6.10) L Hemoglobin 8.4 G/DL (14.2-18.0) L Hematocrit 23.6 % (42.0-52.0) L Mean Corpuscular Volume 84 FL (80-99) Mean Corpuscular Hemoglobin 29.8 PG (27.0-31.0) Mean Corpuscular Hemoglobin Concent 35.5 G/DL (32.0-36.0) Red Cell Distribution Width 16.3 % (11.6-14.8) H Platelet Count 373 K/UL (150-450) Mean Platelet Volume 6.2 FL (6.5-10.1) L Neutrophils (%) (Auto) 60.0 % (45.0-75.0) Lymphocytes (%) (Auto) 20.1 % (20.0-45.0) Monocytes (%) (Auto) 10.0 % (1.0-10.0) Eosinophils (%) (Auto) 8.9 % (0.0-3.0) H Basophils (%) (Auto) 1.0 % (0.0-2.0) Sodium Level 140 MMOL/L (136-145) Potassium Level 3.4 MMOL/L (3.5-5.1) L Chloride Level 108 MMOL/L (98-107) H Carbon Dioxide Level 23 MMOL/L (21-32) Anion Gap 9 mmol/L (5-15) Blood Urea Nitrogen 37 mg/dL (7-18) H Creatinine 1.5 MG/DL (0.55-1.30) H Estimat Glomerular Filtration Rate 47.3 mL/min (>60) Glucose Level 92 MG/DL (74-106) Calcium Level 9.7 MG/DL (8.5-10.1) Phosphorus Level 3.1 MG/DL (2.5-4.9) Magnesium Level 1.4 MG/DL (1.8-2.4) L Total Bilirubin 0.3 MG/DL (0.2-1.0) Aspartate Amino Transf (AST/SGOT) 79 U/L (15-37) H Alanine Aminotransferase (ALT/SGPT) 34 U/L (12-78) Alkaline Phosphatase 247 U/L (46-116) H Total Protein 7.8 G/DL (6.4-8.2) Albumin 1.4 G/DL (3.4-5.0) L Globulin 6.4 g/dL Albumin/Globulin Ratio 0.2 (1.0-2.7) L Current Medications Medications (Trade) Dose Ordered Sig/Serena Route PRN Reason Start Time Stop Time Status Last Admin Dose Admin Acetaminophen (Tylenol) 650 mg Q4H PRN ORAL FEVER 07/31/17 17:00 08/30/17 16:59 08/10/17 14:18 Albuterol/ Ipratropium (Albuterol/ Ipratropium) 3 ml Q4H PRN HHN Shortness of Breath 08/06/17 17:00 08/11/17 23:59 Amiodarone HCl (Cordarone) 200 mg EVERY 12 HOURS GT 07/31/17 21:00 08/30/17 20:59 08/10/17 08:52 Chlorhexidine Gluconate (Ngoc-Hex 2%) 1 applic DAILY@2000 TOPIC 07/31/17 20:00 08/30/17 19:59 08/09/17 20:32 Colistimethate Sodium (Colistin *inhalation use only*) 150 mg Q12HR@10,22 INH 08/07/17 22:00 08/14/17 21:59 08/10/17 09:38 Colistimethate Sodium (Colistin) 75 mg EVERY 12 HOURS IVP 08/07/17 21:00 08/14/17 20:59 08/10/17 08:53 Dextrose (Dextrose 50%) STAT PRN IV Hypoglycemia 07/31/17 17:00 08/30/17 16:59 Heparin Sodium (Porcine) (Heparin 5000 units/ml) 5,000 units EVERY 12 HOURS SUBQ 07/31/17 21:00 08/30/17 20:59 08/10/17 08:54 Heparin Sodium/ Sodium Chloride (Heparin 2000 units/Ns 1000ml premix) 2,000 unit ONCE PRN INJ PICC PLACEMENT 08/03/17 09:00 09/02/17 08:59 Levetiracetam (Keppra) 250 mg BID GT 07/31/17 18:00 08/30/17 17:59 08/10/17 08:53 Lidocaine (Xylocaine 1% MPF 5ml) 30 ml ONCE PRN INJ PICC PLACEMENT 08/03/17 09:00 09/02/17 08:59 Lorazepam (Ativan 2mg/ml 1ml) 2 mg Q2H PRN IV For Anxiety 08/06/17 15:00 08/13/17 23:59 Meropenem 2 gm/ Sodium Chloride 110 ml @ 220 mls/hr Q8HR IVPB 08/07/17 22:00 08/12/17 21:59 08/10/17 14:13 Morphine Sulfate (Morphine Sulfate) 4 mg Q4H PRN IVP Severe Pain (Pain Scale 7-10) 08/06/17 17:00 08/13/17 23:59 Ondansetron HCl (Zofran) 4 mg Q6H PRN IVP Nausea & Vomiting 07/31/17 17:00 08/30/17 16:59 Pantoprazole (Protonix) 40 mg DAILY IV 08/01/17 09:00 08/31/17 08:59 08/10/17 08:53 Phenytoin (Dilantin) 100 mg Q12HR GT 08/09/17 16:00 09/08/17 15:59 08/10/17 08:52 Polyethylene Glycol (Miralax) 17 gm DAILYPRN PRN ORAL Constipation 07/31/17 17:00 08/30/17 16:59 Potassium Chloride (K-Dur) 40 meq DAILY GT 08/10/17 09:00 09/09/17 08:59 08/10/17 08:52 Sodium Chloride 1,000 ml @ 75 mls/hr [id number] IV 08/07/17 13:15 09/06/17 13:14 08/10/17 07:32 KRYSTIN JAQUEZ M.D. Aug 10, 2017 15:02
[2017-08-10 15:38] VITALS: BP 106/66
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
--- NOTE | 2017-08-10 19:38 | Wound Care Consultation ---
Wound Assessment Wound Assessment #1: Wound Number: 1 Wound Present on Admission: Yes New Wound: No Status Change of Wound: Yes Wound Location Body Site Modif: upper, anterior Wound Location Body Site: chest Wound Type: blister - denuded Minerva Test: Does not Minerva Pressure Ulcer Stage: II Blisters: Denuded Blister Wound Thickness: Partial Thickness Wound Length: 2.0 Wound Width: 2.0 Wound Depth: 0.2 Percent of Wound [place]/Red: 100 Wound Drainage Description: Serosanguineous Wound Drainage Amount: Moderate Wound Drainage Odor: None/Absent Tissue Surrounding Wound: Macerated Wound General Appearance: Reddened Wound Assessment #2: Wound Number: 2 Wound Present on Admission: Yes New Wound: No Status Change of Wound: Yes Wound Location Body Site Modif: upper, anterior Wound Location Body Site: chest Wound Type: blister - denuded site #2 Minerva Test: Does not Minerva Pressure Ulcer Stage: II Wound Thickness: Partial Thickness Wound Length: 2.0 Wound Width: 1.0 Wound Depth: 0.2 Percent of Wound [place]/Red: 100 Wound Drainage Description: Serosanguineous Wound Drainage Amount: Moderate Wound Drainage Odor: None/Absent Tissue Surrounding Wound: Macerated Wound General Appearance: Reddened Wound Comment ANTERIOR UPPER CHEST denuded blisters two sites recommendation -Local wound care per protocol -offload affected site. -Assess and notify MD for any changes -Keep clean and dry. ATUL LONG Aug 10, 2017 19:37
[2017-08-10 20:00] VITALS: BP 146/88
[2017-08-10] MEDS: Dyna-Hex 2% Top Sol 2oz TOPIC SCH (21:07)
[2017-08-11] VITALS: BP 115/76
[2017-08-11 04:00] VITALS: BP 104/67
[2017-08-11] MEDS: Meropenem 2 GM in NS 110 ML IVPB SCH ×2 (05:00→14:28)
[2017-08-11 06:32] LABS: EOSINOPHILS % (AUTO) 6.6 % (0.0-3.0); HEMATOCRIT 23.5 % (42.0-52.0); HEMOGLOBIN 8.4 G/DL (14.2-18.0); MEAN CORPUSCULAR VOLUME 84 FL (80-99); MONOCYTES % (AUTO) 10.2 % (1.0-10.0); NEUTROPHILS % (AUTO) 66.2 % (45.0-75.0); PLATELET COUNT 376 K/UL (150-450); WHITE BLOOD COUNT 12.5 K/UL (4.8-10.8)
[2017-08-11 07:04] LABS: ALANINE AMINOTRANSFERASE 40 U/L (12-78); ALBUMIN 1.3 G/DL (3.4-5.0); ALBUMIN/GLOBULIN RATIO 0.2 (1.0-2.7); ALKALINE PHOSPHATASE 256 U/L (46-116); ANION GAP 8 mmol/L (5-15); ASPARTATE AMINO TRANSFERASE 79 U/L (15-37); BILIRUBIN,TOTAL 0.2 MG/DL (0.2-1.0); BLOOD UREA NITROGEN 31 mg/dL (7-18); CALCIUM 9.2 MG/DL (8.5-10.1); CARBON DIOXIDE 22 MMOL/L (21-32); CHLORIDE 110 MMOL/L (98-107); CREATININE 1.5 MG/DL (0.55-1.30); PHOSPHORUS 2.7 MG/DL (2.5-4.9); POTASSIUM 4.5 MMOL/L (3.5-5.1); SODIUM 140 MMOL/L (136-145)
[2017-08-11 08:00] VITALS: BP 113/75
[2017-08-11] MEDS: Phenytoin Susp 100mg/4ml GT SCH ×2 (08:35→20:53)
[2017-08-11] MEDS: Amiodarone 200mg tab GT SCH ×2 (08:35→20:53)
[2017-08-11] MEDS: levETIRAcetam 500mg/5ml Liquid GT SCH ×2 (08:35→17:58)
[2017-08-11] MEDS: Pantoprazole Inj IV SCH (08:35)
[2017-08-11] MEDS: Heparin 5000 units/ml inj SUBQ SCH ×2 (08:36→20:54)
[2017-08-11] MEDS: Colistin 150mg vial IVP SCH ×2 (08:37→20:53)
[2017-08-11] MEDS: Colistin for inhalation INH SCH ×2 (09:02→22:40)
--- NOTE | 2017-08-11 11:52 | Pulmonolgy Critical Care Note ---
Critical Care - Asmt/Plan Problems: (1) Sepsis (2) Chronic respiratory failure (3) UTI (urinary tract infection) (4) Feeding by G-tube (5) Pressure ulcer Respiratory: monitor respiratory rate, adjust FIO2, CXR, other - pt has leukocytosis and low grade fever and increasing pleural effusion. He need thoracentesis to rule out impyema. Other option would be comfort care. Cardiac: continue to monitor HR/BP Renal: F/U I&O Infectious Disease: check cultures, continue antibiotics Gastrointestinal: continue feedings/current rate Endocrine: monitor blood sugar, check TSH, continue sliding scale insulin Hematologic: monitor H/H, transfuse if hgb<8.5 Neurologic: PRN Ativan, PRN Morphine, keep patient comfortable Prophylaxis: Heparin Notes Reviewed: state wildlife officer, cardio, renal Discussed with: nurses, consultants, case management coordinatorservice desk manager - Objective Last 24 Hour Vital Signs Date Time Temp Pulse Resp B/P (MAP) Pulse Ox O2 Delivery O2 Flow Rate FiO2 08/11/17 10:38 111 19 40 08/11/17 09:15 113 18 40 08/11/17 09:02 111 18 100 Mechanical Ventilator 40.0 08/11/17 08:00 50 08/11/17 08:00 111 08/11/17 08:00 99.9 111 113/75 100 Mechanical Ventilator 40 99.9 20 08/11/17 07:05 110 19 40 08/11/17 05:14 115 21 40 08/11/17 04:00 98.9 112 104/67 100 Mechanical Ventilator 50 98.9 22 08/11/17 04:00 50 08/11/17 04:00 111 08/11/17 03:05 112 18 40 08/11/17 00:59 111 18 40 08/11/17 00:00 112 08/11/17 00:00 99.1 110 115/76 100 Mechanical Ventilator 50 99.1 19 08/11/17 00:00 50 08/10/17 23:02 112 18 40 08/10/17 21:31 115 18 100 Mechanical Ventilator 40 08/10/17 21:16 114 21 40 08/10/17 21:16 114 21 100 Mechanical Ventilator 40 08/10/17 20:00 50 08/10/17 20:00 112 08/10/17 20:00 98.2 119 146/88 99 Mechanical Ventilator 50 98.2 21 3/7/18 18:53 105 19 40 08/10/17 17:01 107 18 40 08/10/17 16:00 111 08/10/17 16:00 50 08/10/17 15:38 99.8 113 106/66 99 Mechanical Ventilator 50 99.8 22 08/10/17 15:37 113 20 50 08/10/17 15:15 99.5 08/10/17 14:18 100.0 08/10/17 13:56 106 18 50 08/10/17 12:00 50 08/10/17 12:00 100.0 108 107/56 100 Mechanical Ventilator 50 100.0 20 08/10/17 12:00 107 Status: awake Condition: critical Heart: HR/BP stable, HR/BP unstable Abdomen: soft, non-tender, feeding tube Extremities: no C/C/E Accucheck: 131 Critical Care - Subjective ICU Day: 11 Condition: critical EKG Rhythm: Sinus Rhythm FI02: 40 Vent Support Breath Rate: 18 Vent Support Mode: AC Vent Tidal Volume: 550 Sputum Amount: Small PEEP: 5.0 PIP: 22 Tube Feeding Amount: 55 I&O: Intake and Output 08/10/17 08/11/17 19:00 07:00 Intake Total 1795 ml 1757 ml Output Total 1000 ml 950 ml Balance 795 ml 807 ml Free Water 100 ml IV Total 1060 ml 997 ml Tube Feeding 660 ml 660 ml Other 75 ml Output Urine Total 900 ml 950 ml Stool Total 100 ml CXR: increasing R NOEL Fuentes Aug 11, 2017 11:52
[2017-08-11 12:00] VITALS: BP 141/88
[2017-08-11 14:15] LABS: INR 1.4 (0.9-1.1)
--- NOTE | 2017-08-11 15:02 | General Surgery Progress Note ---
General Surgery-Progress Note Subjective Additional Comments no acute events Objective Last 24 Hour Vital Signs Date Time Temp Pulse Resp B/P (MAP) Pulse Ox O2 Delivery O2 Flow Rate FiO2 08/11/17 12:44 116 18 40 08/11/17 12:00 120 08/11/17 12:00 99.0 119 20 141/88 100 Mechanical Ventilator 40 99.0 08/11/17 12:00 40 08/11/17 10:38 111 19 40 08/11/17 09:15 113 18 40 08/11/17 09:02 111 18 100 Mechanical Ventilator 40.0 08/11/17 08:00 50 08/11/17 08:00 111 08/11/17 08:00 99.9 111 20 113/75 100 Mechanical Ventilator 40 99.9 08/11/17 07:05 110 19 40 08/11/17 05:14 115 21 40 08/11/17 04:00 98.9 112 104/67 100 Mechanical Ventilator 50 98.9 22 08/11/17 04:00 50 08/11/17 04:00 111 08/11/17 03:05 112 18 40 08/11/17 00:59 111 18 40 08/11/17 00:00 112 08/11/17 00:00 99.1 110 115/76 100 Mechanical Ventilator 50 99.1 19 08/11/17 00:00 50 08/10/17 23:02 112 18 40 08/10/17 21:31 115 18 100 Mechanical Ventilator 40 08/10/17 21:16 114 21 40 08/10/17 21:16 114 21 100 Mechanical Ventilator 40 08/10/17 20:00 50 08/10/17 20:00 112 08/10/17 20:00 98.2 119 146/88 99 Mechanical Ventilator 50 98.2 21 08/10/17 18:53 105 19 40 08/10/17 17:01 107 18 40 08/10/17 16:00 111 08/10/17 16:00 50 08/10/17 15:38 99.8 113 106/66 99 Mechanical Ventilator 50 99.8 22 08/10/17 15:37 113 20 50 08/10/17 15:15 99.5 I&O Intake and Output 08/10/17 08/11/17 19:00 07:00 Intake Total 1795 ml 1757 ml Output Total 1000 ml 950 ml Balance 795 ml 807 ml Free Water 100 ml IV Total 1060 ml 997 ml Tube Feeding 660 ml 660 ml Other 75 ml Output Urine Total 900 ml 950 ml Stool Total 100 ml Dressing: dry Wound: clean, intact Cardiovascular: RSR Respiratory: decreased breath sounds Abdomen: soft, non-tender, present bowel sounds Extremities: no cyanosis Laboratory Tests Test 08/11/17 05:40 08/11/17 13:10 White Blood Count 12.5 K/UL (4.8-10.8) H Red Blood Count 2.80 M/UL (4.70-6.10) L Hemoglobin 8.4 G/DL (14.2-18.0) L Hematocrit 23.5 % (42.0-52.0) L Mean Corpuscular Volume 84 FL (80-99) Mean Corpuscular Hemoglobin 29.9 PG (27.0-31.0) Mean Corpuscular Hemoglobin Concent 35.5 G/DL (32.0-36.0) Red Cell Distribution Width 16.0 % (11.6-14.8) H Platelet Count 376 K/UL (150-450) Mean Platelet Volume 6.3 FL (6.5-10.1) L Neutrophils (%) (Auto) 66.2 % (45.0-75.0) Lymphocytes (%) (Auto) 16.0 % (20.0-45.0) L Monocytes (%) (Auto) 10.2 % (1.0-10.0) H Eosinophils (%) (Auto) 6.6 % (0.0-3.0) H Basophils (%) (Auto) 1.0 % (0.0-2.0) Sodium Level 140 MMOL/L (136-145) Potassium Level 4.5 MMOL/L (3.5-5.1) Chloride Level 110 MMOL/L (98-107) H Carbon Dioxide Level 22 MMOL/L (21-32) Anion Gap 8 mmol/L (5-15) Blood Urea Nitrogen 31 mg/dL (7-18) H Creatinine 1.5 MG/DL (0.55-1.30) H Estimat Glomerular Filtration Rate 47.3 mL/min (>60) Glucose Level 115 MG/DL (74-106) H Calcium Level 9.2 MG/DL (8.5-10.1) Phosphorus Level 2.7 MG/DL (2.5-4.9) Magnesium Level 1.6 MG/DL (1.8-2.4) L Total Bilirubin 0.2 MG/DL (0.2-1.0) Aspartate Amino Transf (AST/SGOT) 79 U/L (15-37) H Alanine Aminotransferase (ALT/SGPT) 40 U/L (12-78) Alkaline Phosphatase 256 U/L (46-116) H Total Protein 7.7 G/DL (6.4-8.2) Albumin 1.3 G/DL (3.4-5.0) L Globulin 6.4 g/dL Albumin/Globulin Ratio 0.2 (1.0-2.7) L Prothrombin Time 14.2 SEC (9.30-11.50) H Prothromb Time International Ratio 1.4 (0.9-1.1) H Activated Partial Thromboplast Time 37 SEC (23-33) H Plan Problems: (1) Pressure ulcer Assessment & Plan: sacral ulcers with epidermal abrasions, no necrotic tissue or dermal breakdown at this time. no signs of infection from sacral and hip wounds likely pressure in nature. can progress recommend dressings and skin barrier as currently being placed turn q2h keep pressure off wounds unfortunately given patients condition will need aggressive prevention or will progress. fortunately great nursing care being provided and currently stable. thank you for this consultation. will follow with recs. Jesus Martin Aug 11, 2017 15:02
[2017-08-11 16:00] VITALS: BP 111/64
[2017-08-11 20:00] VITALS: BP 118/69
--- NOTE | 2017-08-11 20:31 | Infectious Diseases Prog Note ---
Assessment/Plan Assessment/Plan ASSESSMENT: The patient is a 62-year-old male with: Blood Cx: CoNS probable line infection ( PICC from out side facility was removed on 08/04 ) Leukocytosis, mild Fever, low garde Diarrhea Clostridium difficile: Neg ? ventilatory-associated pneumonia Scx: MDR PSA (chest x-ray:Considerably worse pleural and parenchymal disease on the right. Slightly worse in pleural and parenchymal disease on the left, over 3 days ) Elevated alkaline phosphatase improving US Borderline gallbladder wall thickening, more likely artifact due to underdistention than real. Influenza: Neg Multiple decubitus of lower extremity. 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 Sacral Wnd : mixed growth ( Colonizer ) ESR: 130 , CRP : 8 BETSY Diabetes. Anemia. GERD. Hypertension. History of TBI. Seizure disorder PLAN: continue the patient on IV Merrem and IV / INH Colistin d# 5 / 42 ( treatment of osteo and Pneumonia ) ( Avycase is not provided in this hospital ) 3/ SP vancomycin d# 9 and Zosyn and Gent d# 4 3/ SP cefepime day # 5 Monitor blood cultures ( repeat) Monitor chest x-ray. CT C/A/P look for other source infection not ready for DC, as Cr and temp is increasing Subjective Allergies: Coded Allergies: No Known Allergies (Unverified , 07/31/17) Subjective febrile low grade Objective Vital Signs Last 24 Hour Vital Signs Date Time Temp Pulse Resp B/P (MAP) Pulse Ox O2 Delivery O2 Flow Rate FiO2 08/11/17 19:26 111 26 40 08/11/17 16:45 99.7 08/11/17 16:44 116 20 40 08/11/17 16:00 115 08/11/17 16:00 40 08/11/17 16:00 100.6 115 20 111/64 99 Mechanical Ventilator 40 100.6 08/11/17 15:51 100.6 08/11/17 15:04 115 20 40 08/11/17 12:44 116 18 40 08/11/17 12:00 120 08/11/17 12:00 99.0 119 20 141/88 100 Mechanical Ventilator 40 99.0 08/11/17 12:00 40 08/11/17 10:38 111 19 40 08/11/17 09:15 113 18 40 08/11/17 09:02 111 18 100 Mechanical Ventilator 40.0 08/11/17 08:00 50 08/11/17 08:00 111 08/11/17 08:00 99.9 111 20 113/75 100 Mechanical Ventilator 40 99.9 08/11/17 07:05 110 19 40 08/11/17 05:14 115 21 40 08/11/17 04:00 98.9 112 104/67 100 Mechanical Ventilator 50 98.9 22 08/11/17 04:00 50 08/11/17 04:00 111 08/11/17 03:05 112 18 40 08/11/17 00:59 111 18 40 08/11/17 00:00 112 08/11/17 00:00 99.1 110 115/76 100 Mechanical Ventilator 50 99.1 19 08/11/17 00:00 50 08/10/17 23:02 112 18 40 08/10/17 21:31 115 18 100 Mechanical Ventilator 40 08/10/17 21:16 114 21 40 08/10/17 21:16 114 21 100 Mechanical Ventilator 40 Height (Feet): 6 Height (Inches): 0.00 Weight (Pounds): 139 HEENT: mucous membranes moist Respiratory/Chest: no respiratory distress Cardiovascular: normal rate Abdomen: no organomegaly Laboratory Tests Test 08/11/17 05:40 08/11/17 13:10 White Blood Count 12.5 K/UL (4.8-10.8) H Red Blood Count 2.80 M/UL (4.70-6.10) L Hemoglobin 8.4 G/DL (14.2-18.0) L Hematocrit 23.5 % (42.0-52.0) L Mean Corpuscular Volume 84 FL (80-99) Mean Corpuscular Hemoglobin 29.9 PG (27.0-31.0) Mean Corpuscular Hemoglobin Concent 35.5 G/DL (32.0-36.0) Red Cell Distribution Width 16.0 % (11.6-14.8) H Platelet Count 376 K/UL (150-450) Mean Platelet Volume 6.3 FL (6.5-10.1) L Neutrophils (%) (Auto) 66.2 % (45.0-75.0) Lymphocytes (%) (Auto) 16.0 % (20.0-45.0) L Monocytes (%) (Auto) 10.2 % (1.0-10.0) H Eosinophils (%) (Auto) 6.6 % (0.0-3.0) H Basophils (%) (Auto) 1.0 % (0.0-2.0) Sodium Level 140 MMOL/L (136-145) Potassium Level 4.5 MMOL/L (3.5-5.1) Chloride Level 110 MMOL/L (98-107) H Carbon Dioxide Level 22 MMOL/L (21-32) Anion Gap 8 mmol/L (5-15) Blood Urea Nitrogen 31 mg/dL (7-18) H Creatinine 1.5 MG/DL (0.55-1.30) H Estimat Glomerular Filtration Rate 47.3 mL/min (>60) Glucose Level 115 MG/DL (74-106) H Calcium Level 9.2 MG/DL (8.5-10.1) Phosphorus Level 2.7 MG/DL (2.5-4.9) Magnesium Level 1.6 MG/DL (1.8-2.4) L Total Bilirubin 0.2 MG/DL (0.2-1.0) Aspartate Amino Transf (AST/SGOT) 79 U/L (15-37) H Alanine Aminotransferase (ALT/SGPT) 40 U/L (12-78) Alkaline Phosphatase 256 U/L (46-116) H Total Protein 7.7 G/DL (6.4-8.2) Albumin 1.3 G/DL (3.4-5.0) L Globulin 6.4 g/dL Albumin/Globulin Ratio 0.2 (1.0-2.7) L Prothrombin Time 14.2 SEC (9.30-11.50) H Prothromb Time International Ratio 1.4 (0.9-1.1) H Activated Partial Thromboplast Time 37 SEC (23-33) H Current Medications Medications (Trade) Dose Ordered Sig/Serena Route PRN Reason Start Time Stop Time Status Last Admin Dose Admin Acetaminophen (Tylenol) 650 mg Q4H PRN ORAL FEVER 07/31/17 17:00 08/30/17 16:59 08/11/17 15:51 Albuterol/ Ipratropium (Albuterol/ Ipratropium) 3 ml Q4H PRN HHN Shortness of Breath 08/06/17 17:00 08/11/17 23:59 Amiodarone HCl (Cordarone) 200 mg EVERY 12 HOURS GT 07/31/17 21:00 08/30/17 20:59 08/11/17 08:35 Chlorhexidine Gluconate (Ngoc-Hex 2%) 1 applic DAILY@1999 TOPIC 07/31/17 20:00 08/30/17 19:59 08/10/17 21:07 Colistimethate Sodium (Colistin *inhalation use only*) 150 mg Q12HR@10,22 INH 08/07/17 22:00 08/14/17 21:59 08/11/17 09:02 Colistimethate Sodium (Colistin) 75 mg EVERY 12 HOURS IVP 08/07/17 21:00 08/14/17 20:59 08/11/17 08:37 Dextrose (Dextrose 50%) STAT PRN IV Hypoglycemia 07/31/17 17:00 08/30/17 16:59 Heparin Sodium (Porcine) (Heparin 5000 units/ml) 5,000 units EVERY 12 HOURS SUBQ 07/31/17 21:00 08/30/17 20:59 08/11/17 08:36 Heparin Sodium/ Sodium Chloride (Heparin 2000 units/Ns 1000ml premix) 2,000 unit ONCE PRN INJ PICC PLACEMENT 08/03/17 09:00 09/02/17 08:59 Levetiracetam (Keppra) 250 mg BID GT 07/31/17 18:00 08/30/17 17:59 08/11/17 17:58 Lidocaine (Xylocaine 1% MPF 5ml) 30 ml ONCE PRN INJ PICC PLACEMENT 08/03/17 09:00 09/02/17 08:59 Lorazepam (Ativan 2mg/ml 1ml) 2 mg Q2H PRN IV For Anxiety 08/06/17 15:00 08/13/17 23:59 Meropenem 2 gm/ Sodium Chloride 110 ml @ 220 mls/hr Q12HR IVPB 08/12/17 09:00 08/17/17 08:59 Morphine Sulfate (Morphine Sulfate) 4 mg Q4H PRN IVP Severe Pain (Pain Scale 7-10) 08/06/17 17:00 08/13/17 23:59 Ondansetron HCl (Zofran) 4 mg Q6H PRN IVP Nausea & Vomiting 07/31/17 17:00 08/30/17 16:59 Pantoprazole (Protonix) 40 mg DAILY IV 08/01/17 09:00 08/31/17 08:59 08/11/17 08:35 Phenytoin (Dilantin) 100 mg Q12HR GT 08/09/17 16:00 09/08/17 15:59 08/11/17 08:35 Polyethylene Glycol (Miralax) 17 gm DAILYPRN PRN ORAL Constipation 07/31/17 17:00 08/30/17 16:59 Sodium Chloride 1,000 ml @ 75 mls/hr [id number] IV 08/07/17 13:15 09/06/17 13:14 08/11/17 10:15 KRYSTIN JAQUEZ M.D. Aug 11, 2017 20:30
[2017-08-11] MEDS: Dyna-Hex 2% Top Sol 2oz TOPIC SCH (20:53)
[2017-08-11] MEDS: Acetaminophen 650mg/20.3ml GT PRN (22:08)
[2017-08-12] VITALS: BP 102/59
[2017-08-12 04:00] VITALS: BP 121/52
[2017-08-12 05:57] LABS: BASOPHILS % (AUTO) 0.6 % (0.0-2.0); EOSINOPHILS % (AUTO) 6.1 % (0.0-3.0); HEMATOCRIT 23.4 % (42.0-52.0); HEMOGLOBIN 8.4 G/DL (14.2-18.0); LYMPHOCYTES % (AUTO) 12.9 % (20.0-45.0); MEAN CORPUSCULAR VOLUME 85 FL (80-99); MONOCYTES % (AUTO) 6.1 % (1.0-10.0); NEUTROPHILS % (AUTO) 74.3 % (45.0-75.0); PLATELET COUNT 361 K/UL (150-450); RED BLOOD COUNT 2.74 M/UL (4.70-6.10); RED CELL DISTRIBUTION WIDTH 15.9 % (11.6-14.8); WHITE BLOOD COUNT 17.4 K/UL (4.8-10.8)
[2017-08-12 06:11] LABS: ALANINE AMINOTRANSFERASE 36 U/L (12-78); ALBUMIN 1.3 G/DL (3.4-5.0); ALBUMIN/GLOBULIN RATIO 0.2 (1.0-2.7); ALKALINE PHOSPHATASE 242 U/L (46-116); ANION GAP 9 mmol/L (5-15); ASPARTATE AMINO TRANSFERASE 68 U/L (15-37); BILIRUBIN,TOTAL 0.3 MG/DL (0.2-1.0); BLOOD UREA NITROGEN 38 mg/dL (7-18); CALCIUM 9.6 MG/DL (8.5-10.1); CARBON DIOXIDE 23 MMOL/L (21-32); CHLORIDE 111 MMOL/L (98-107); CREATININE 1.5 MG/DL (0.55-1.30); POTASSIUM 4.3 MMOL/L (3.5-5.1); SODIUM 143 MMOL/L (136-145)
[2017-08-12 06:37] LABS: INR 1.4 (0.9-1.1)
[2017-08-12 08:00] VITALS: BP 125/74
[2017-08-12] MEDS: Colistin for inhalation INH SCH ×2 (08:31→20:50)
[2017-08-12] MEDS: Phenytoin Susp 100mg/4ml GT SCH ×2 (09:00→21:16)
[2017-08-12] MEDS: Amiodarone 200mg tab GT SCH ×2 (09:00→21:20)
[2017-08-12] MEDS: levETIRAcetam 500mg/5ml Liquid GT SCH ×2 (09:00→18:38)
[2017-08-12] MEDS ORDERED: Lidocaine 1% MPF 10mg/ml 5ml INJ SCH (09:40)
[2017-08-12] MEDS: Pantoprazole Inj IV SCH (09:57)
[2017-08-12] MEDS: Colistin 150mg vial IVP SCH ×2 (09:57→21:16)
[2017-08-12] MEDS: Meropenem 2 GM in NS 110 ML IVPB SCH ×2 (09:57→22:24)
[2017-08-12] MEDS: Heparin 5000 units/ml inj SUBQ SCH ×2 (10:01→21:19)
--- NOTE | 2017-08-12 10:56 | Diagnostic Imaging Report ---
Indication: Dyspnea Technique: One view of the chest Comparison: 08/09/2017 Findings: Less optimal inspiration currently. Left arm PICC, tracheostomy remain. There is increased hazy opacity throughout the right mid and lower lung. Left perihilar atelectasis is increased from the prior exam. Impression: Increasing right middle lower lung infiltrates, over 3 days. Increasing left infrahilar atelectasis. Other stable findings as described
--- NOTE | 2017-08-12 11:15 | Pulmonology Progress Note ---
Assessment/Plan Problems: (1) Sepsis (2) Chronic respiratory failure (3) Encephalopathy (4) Pleural effusion, left (5) UTI (urinary tract infection) (6) Feeding by G-tube Assessment/Plan: getting thoracentesis. Respiratory: monitor respiratory rate, adjust FIO2, CXR Cardiac: continue to monitor HR/BP Renal: F/U I&O Infectious Disease: check cultures, continue antibiotics Endocrine: monitor blood sugar, check TSH Neurologic: PRN Ativan Affect: PRN ativan Prophylaxis: Protonix, Heparin Time Spent (Minutes): 40 Notes Reviewed: cardio, renal Discussed with: consultants Subjective ROS Limited/Unobtainable: No Constitutional: Reports: no symptoms HEENT: Repors: no symptoms Allergies: Coded Allergies: No Known Allergies (Unverified , 07/31/17) Objective Last 24 Hour Vital Signs Date Time Temp Pulse Resp B/P (MAP) Pulse Ox O2 Delivery O2 Flow Rate FiO2 08/12/17 10:35 110 18 30 08/12/17 08:44 114 18 100 Mechanical Ventilator 30 08/12/17 08:31 113 18 100 Mechanical Ventilator 30 08/12/17 08:30 113 18 30 08/12/17 06:53 112 20 30 08/12/17 05:09 110 21 30 08/12/17 04:00 98.4 114 25 121/52 97 Mechanical Ventilator 40 98.4 08/12/17 04:00 30 08/12/17 04:00 122 08/12/17 03:26 107 20 30 08/12/17 01:35 105 22 30 08/12/17 00:00 30 08/12/17 00:00 99.5 108 28 102/59 100 Mechanical Ventilator 40 99.5 08/12/17 00:00 109 08/11/17 22:51 111 18 100 Mechanical Ventilator 30 08/11/17 22:51 111 18 30 08/11/17 22:39 107 22 100 Mechanical Ventilator 30 08/11/17 22:38 98.5 08/11/17 22:08 100.6 08/11/17 21:29 110 25 30 08/11/17 20:00 114 08/11/17 20:00 100.5 111 25 118/69 100 Mechanical Ventilator 40 100.5 08/11/17 20:00 30 08/11/17 19:26 111 26 40 08/11/17 16:45 99.7 08/11/17 16:44 116 20 40 08/11/17 16:00 115 08/11/17 16:00 40 08/11/17 16:00 100.6 115 20 111/64 99 Mechanical Ventilator 40 100.6 08/11/17 15:51 100.6 08/11/17 15:04 115 20 40 08/11/17 12:44 116 18 40 08/11/17 12:00 120 08/11/17 12:00 99.0 119 20 141/88 100 Mechanical Ventilator 40 99.0 08/11/17 12:00 40 Intake and Output 08/11/17 08/12/17 19:00 07:00 Intake Total 1850 ml 800 ml Output Total 200 ml Balance 1650 ml 800 ml Free Water 100 ml IV Total 1010 ml 750 ml Tube Feeding 660 ml Other 80 ml 50 ml Stool Total 200 ml # Bowel Movements 1 General Appearance: WD/WN HEENT: normocephalic, atraumatic Respiratory/Chest: chest wall non-tender, lungs clear, normal breath sounds, chest wall tender Cardiovascular: normal rate Abdomen: normal bowel sounds, no organomegaly Extremities: no cyanosis Skin: no rash Laboratory Tests 08/11/17 13:10: Prothrombin Time 14.2H, Prothromb Time International Ratio 1.4H, Activated Partial Thromboplast Time 37H 08/12/17 04:00: Prothrombin Time 14.4H, Prothromb Time International Ratio 1.4H, Activated Partial Thromboplast Time 36H, White Blood Count 17.4H, Red Blood Count 2.74L, Hemoglobin 8.4L, Hematocrit 23.4L, Mean Corpuscular Volume 85, Mean Corpuscular Hemoglobin 30.6, Mean Corpuscular Hemoglobin Concent 35.8, Red Cell Distribution Width 15.9H, Platelet Count 361, Mean Platelet Volume 6.7, Neutrophils (%) (Auto) 74.3, Lymphocytes (%) (Auto) 12.9L, Monocytes (%) (Auto) 6.1, Eosinophils (%) (Auto) 6.1H, Basophils (%) (Auto) 0.6, Sodium Level 143, Potassium Level 4.3, Chloride Level 111H, Carbon Dioxide Level 23, Anion Gap 9, Blood Urea Nitrogen 38H, Creatinine 1.5H, Estimat Glomerular Filtration Rate 47.3, Glucose Level 95, Calcium Level 9.6, Total Bilirubin 0.3, Aspartate Amino Transf (AST/SGOT) 68H, Alanine Aminotransferase (ALT/SGPT) 36, Alkaline Phosphatase 242H, Pro-B-Type Natriuretic Peptide 611H, Total Protein 7.8, Albumin 1.3L, Globulin 6.5, Albumin/Globulin Ratio 0.2L Current Medications Medications (Trade) Dose Ordered Sig/Serena Route PRN Reason Start Time Stop Time Status Last Admin Dose Admin Acetaminophen (Tylenol) 650 mg Q4H PRN GT Mild Pain/Temp > 100.5 08/11/17 20:45 09/10/17 20:44 08/11/17 22:08 Amiodarone HCl (Cordarone) 200 mg EVERY 12 HOURS GT 07/31/17 21:00 08/30/17 20:59 08/11/17 20:53 Chlorhexidine Gluconate (Ngoc-Hex 2%) 1 applic DAILY@2000 TOPIC 07/31/17 20:00 08/30/17 19:59 08/11/17 20:53 Colistimethate Sodium (Colistin *inhalation use only*) 150 mg Q12HR@10,22 INH 08/07/17 22:00 08/14/17 21:59 08/12/17 08:31 Colistimethate Sodium (Colistin) 75 mg EVERY 12 HOURS IVP 08/07/17 21:00 08/14/17 20:59 08/12/17 09:57 Dextrose (Dextrose 50%) STAT PRN IV Hypoglycemia 07/31/17 17:00 08/30/17 16:59 Heparin Sodium (Porcine) (Heparin 5000 units/ml) 5,000 units EVERY 12 HOURS SUBQ 07/31/17 21:00 08/30/17 20:59 08/12/17 10:01 Heparin Sodium/ Sodium Chloride (Heparin 2000 units/Ns 1000ml premix) 2,000 unit ONCE PRN INJ PICC PLACEMENT 08/03/17 09:00 09/02/17 08:59 Levetiracetam (Keppra) 250 mg BID GT 07/31/17 18:00 08/30/17 17:59 08/11/17 17:58 Lidocaine (Xylocaine 1% MPF 5ml) 10 ml ONCE INJ 08/12/17 09:40 08/12/17 23:59 Lorazepam (Ativan 2mg/ml 1ml) 2 mg Q2H PRN IV For Anxiety 08/06/17 15:00 08/13/17 23:59 Meropenem 2 gm/ Sodium Chloride 110 ml @ 220 mls/hr Q12HR IVPB 08/12/17 09:00 08/17/17 08:59 08/12/17 09:57 Morphine Sulfate (Morphine Sulfate) 4 mg Q4H PRN IVP Severe Pain (Pain Scale 7-10) 08/06/17 17:00 08/13/17 23:59 Ondansetron HCl (Zofran) 4 mg Q6H PRN IVP Nausea & Vomiting 07/31/17 17:00 08/30/17 16:59 Pantoprazole (Protonix) 40 mg DAILY IV 08/01/17 09:00 08/31/17 08:59 08/12/17 09:57 Phenytoin (Dilantin) 100 mg Q12HR GT 08/09/17 16:00 09/08/17 15:59 08/11/17 20:53 Polyethylene Glycol (Miralax) 17 gm DAILYPRN PRN ORAL Constipation 07/31/17 17:00 08/30/17 16:59 Sodium Chloride 1,000 ml @ 75 mls/hr [id number] IV 08/07/17 13:15 09/06/17 13:14 08/12/17 00:00 NOEL MICHELLE Aug 12, 2017 11:15
[2017-08-12 12:00] VITALS: BP 116/67
--- NOTE | 2017-08-12 12:52 | Pre-Procedure Note/Attestation ---
Pre-Procedure Note/Attestation Complete Prior to Procedure Planned Procedure: right Procedure Narrative: US guided thoracentesis Indications for Procedure Pre-Operative Diagnosis: Pleural effusion Attestation I attest that I discussed the nature of the procedure; its benefits; risks and complications; and alternatives (and the risks and benefits of such alternatives ), prior to the procedure, with the patient (or the patient's legal circulation representative). I attest that, if there was a reasonable possibility of needing a blood transfusion, the patient (or the patient's legal circulation representative) was given the [facility] standardized written summary, pursuant to the [employer]iel [place] Blood Safety Act ([place] Health and Safety Code # 1645, as amended). I attest that I re-evaluated the patient just prior to the surgery and that there has been no change in the patient's H&P, except as documented below: BAYRON SANTAMARIA M.D. Aug 12, 2017 12:52
[2017-08-12] MEDS: Acetaminophen 650mg/20.3ml GT PRN (13:55)
--- NOTE | 2017-08-12 15:11 | Diagnostic Imaging Report ---
Indications: Pleural effusion Technique: Ultrasound used to localize optimal puncture site. Sterile prepping and draping right chest. Local anesthesia with 1% lidocaine. Under real-time ultrasound guidance, puncture pleural space using thoracentesis needle. Stylet removed. Catheter placed to vacuum bottle suction. Total forearm milliliters of fluid aspirated. Patient tolerated procedure well, without immediate complication. Findings: Followup sonography demonstrates complete resolution of pleural fluid. Impression: Successful ultrasound-guided thoracentesis, yielding 400 milliliters of fluid
--- NOTE | 2017-08-12 15:27 | Diagnostic Imaging Report ---
Indication: Status post thoracentesis, shortness of breath Technique: One view of the chest Comparison: 4 hours earlier Findings: Interim resolution of previously demonstrated right mid and lower lung hazy opacity, consistent with interval thoracentesis. No pneumothorax demonstrated. Atelectasis at the left lung base is again demonstrated. Lungs and pleural spaces are otherwise clear. Tracheostomy, PICC again demonstrated Impression: Resolved right pleural effusion, consistent with interim thoracentesis No radiographically evident complication Persistent left basilar atelectasis
[2017-08-12 16:00] VITALS: BP 90/58
--- NOTE | 2017-08-12 17:21 | Diagnostic Imaging Report ---
Indication: Abdominal pain, leukocytosis, anemia Technique: Spiral acquisitions obtained through the abdomen and pelvis. Patient given oral contrast. No IV contrast utilized, per referring physician request.. Multiplanar reconstructions were generated. Total dose length product 1163.72 mGycm. CTDIvol(s) 17.01,11.8 mGy, inclusive of chest CT performed the same time. Dose reduction achieved using automated exposure control Comparison: None Findings: There is generalized edema of the subcutaneous fat. There is somewhat less extensive edema of the retroperitoneal and mesenteric fat. There is trace ascites. There is also a small left pleural effusion. Gas bubbles are seen within the anterior aspect of the right belly of the rectus abdominis muscle. No evidence of diverticulosis or diverticulitis. There is possible wall thickening of the proximal and mid transverse as well as of the ascending colon, although this could also be an artifact of under distention. The appendix is not definitely demonstrated. Surgical spencer in the region of the appendix suggests prior appendectomy. No small bowel distention or small bowel wall thickening. Contrast is seen throughout the entirety of the small bowel, reaching as far distally as the proximal descending colon. The stomach is nondistended, contains a gastrostomy which is in satisfactory position. Some anchor sutures are present at the gastrostomy entry site. There is equivocal mild wall thickening of the duodenum and proximal jejunum. The distal esophagus is unremarkable. The gallbladder contains multiple stones within the neck. It is not distended. Lack of IV contrast limits assessment of the solid organs. The liver demonstrates a capsular calcification posteriorly, is otherwise unremarkable. The pancreas is diffusely somewhat prominent but demonstrates preserved architecture. Scattered pancreatic calcifications may be arterial or parenchymal. There is ectasia of the pancreatic duct. Note definite pancreatic head mass, although evaluation for such is limited in the absence of IV contrast There are somewhat numerous and prominent peripancreatic lymph nodes. The spleen is unremarkable. The adrenals are unremarkable. The kidneys demonstrate perinephric fat stranding, are otherwise unremarkable. No renal or ureteral calculi, hydronephrosis, or hydroureter. The bladder is empty, contains a Mishra catheter. Unremarkable prostate. The bones are unremarkable. Thoracic findings are discussed in separate thoracic CT report Impression: Evidence of anasarca, with generalized edema of the subcutaneous fat, retroperitoneal and mesenteric fat, trace ascites, small left pleural effusion Possible wall thickening of proximal and mid transverse and ascending colon. Could represent colitis although possibly artifactual due to under distention. Very questionable wall thickening of the duodenum and proximal jejunum, if real could indicate duodenitis/enteritis and/or peptic ulcer disease Gas bubbles in the anterior aspect of the right rectus abdominis muscle belly. Possibly related to recent injections area correlate as to whether there is any recent history of such Cholelithiasis Diffusely somewhat prominent pancreas, probably baseline for this patient, but the possibility of acute pancreatitis should be considered. Correlation with laboratory findings recommended. Scattered punctate microcalcifications may represent sequelae of chronic calcifying pancreatitis, versus arterial calcifications. Ectasia of the pancreatic duct could also indicate chronic calcified pancreatitis no definite pancreatic head mass, although evaluation for such is limited in the absence of IV contrast Suspect prior appendectomy Other findings as noted, including gastrostomy, Mishra catheter within an empty bladder, hepatic capsular calcification [place] [facility] [place] [employer] and the scans are performed using protocols designed to limit radiation exposure to as low as reasonably achievable to attain images of sufficient resolution adequate for diagnostic evaluation.
--- NOTE | 2017-08-12 18:44 | Infectious Diseases Prog Note ---
Assessment/Plan Assessment/Plan ASSESSMENT: The patient is a 62-year-old male with: Blood Cx: CoNS probable line infection (PICC from out side facility was removed on 08/04 ) Leukocytosis, increased Fever 08/12 CT C/A/P : no abscess Diarrhea CT: ? wall thickening of proximal and mid transverse and ascending colon.duodenum and proximal jejunum, and probable acute pancreatitis should be considered. ? Clostridium difficile: Neg ? ventilatory-associated pneumonia Scx: MDR PSA (chest x-ray:Considerably worse pleural and parenchymal disease on the right. Slightly worse in pleural and parenchymal disease on the left, over 3 days ) Elevated alkaline phosphatase improving US Borderline gallbladder wall thickening, more likely artifact due to underdistention than real. Influenza: Neg Multiple decubitus of lower extremity. 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 Sacral Wnd : mixed growth ( Colonizer ) ESR: 130 , CRP : 8 Pl effusion ro empyema 08/12 SP ultrasound-guided thoracentesis, of 400 cc BETSY Diabetes. Anemia. GERD. Hypertension. History of TBI. Seizure disorder PLAN: continue the patient on IV Merrem and IV / INH Colistin d# 7 / 42 ( treatment of osteo and Pneumonia ) and add Mycamine ( empirically for possible j luis over growth ) ( Avycase is not provided in this hospital ) 3/ SP vancomycin d# 9 and Zosyn and Gent d# 4 3/ SP cefepime day # 5 Monitor blood cultures ( repeat Bl, Ur ,Sp) C Diff Pleural wups and Cx : P Monitor chest x-ray. Subjective Allergies: Coded Allergies: No Known Allergies (Unverified , 07/31/17) Subjective febrile low grade Objective Vital Signs Last 24 Hour Vital Signs Date Time Temp Pulse Resp B/P (MAP) Pulse Ox O2 Delivery O2 Flow Rate FiO2 08/12/17 16:39 110 18 30 08/12/17 16:00 97.5 108 18 90/58 99 Mechanical Ventilator 40 97.5 08/12/17 16:00 109 08/12/17 16:00 30 08/12/17 14:45 111 21 30 08/12/17 14:25 99.0 118 99.0 08/12/17 14:25 99.0 08/12/17 13:55 101.8 08/12/17 12:39 115 23 30 08/12/17 12:00 101.8 125 18 116/67 98 Mechanical Ventilator 40 101.8 08/12/17 12:00 30 08/12/17 12:00 117 08/12/17 10:35 110 18 30 08/12/17 08:44 114 18 100 Mechanical Ventilator 30 08/12/17 08:31 113 18 100 Mechanical Ventilator 30 08/12/17 08:30 113 18 30 08/12/17 08:00 117 08/12/17 08:00 100.2 118 22 125/74 100 Mechanical Ventilator 40 100.2 08/12/17 08:00 30 08/12/17 06:53 112 20 30 08/12/17 05:09 110 21 30 08/12/17 04:00 98.4 114 25 121/52 97 Mechanical Ventilator 40 98.4 08/12/17 04:00 30 08/12/17 04:00 122 08/12/17 03:26 107 20 30 08/12/17 01:35 105 22 30 08/12/17 00:00 30 08/12/17 00:00 99.5 108 28 102/59 100 Mechanical Ventilator 40 99.5 08/12/17 00:00 109 08/11/17 22:51 111 18 100 Mechanical Ventilator 30 08/11/17 22:51 111 18 30 08/11/17 22:39 107 22 100 Mechanical Ventilator 30 08/11/17 22:08 100.6 08/11/17 21:29 110 25 30 08/11/17 20:00 114 08/11/17 20:00 100.5 111 25 118/69 100 Mechanical Ventilator 40 100.5 08/11/17 20:00 30 08/11/17 19:26 111 26 40 Height (Feet): 6 Height (Inches): 0.00 Weight (Pounds): 139 HEENT: anicteric Respiratory/Chest: normal breath sounds Cardiovascular: normal rate Abdomen: soft, non tender Laboratory Tests Test 08/12/17 04:00 08/12/17 12:19 White Blood Count 17.4 K/UL (4.8-10.8) H Red Blood Count 2.74 M/UL (4.70-6.10) L Hemoglobin 8.4 G/DL (14.2-18.0) L Hematocrit 23.4 % (42.0-52.0) L Mean Corpuscular Volume 85 FL (80-99) Mean Corpuscular Hemoglobin 30.6 PG (27.0-31.0) Mean Corpuscular Hemoglobin Concent 35.8 G/DL (32.0-36.0) Red Cell Distribution Width 15.9 % (11.6-14.8) H Platelet Count 361 K/UL (150-450) Mean Platelet Volume 6.7 FL (6.5-10.1) Neutrophils (%) (Auto) 74.3 % (45.0-75.0) Lymphocytes (%) (Auto) 12.9 % (20.0-45.0) L Monocytes (%) (Auto) 6.1 % (1.0-10.0) Eosinophils (%) (Auto) 6.1 % (0.0-3.0) H Basophils (%) (Auto) 0.6 % (0.0-2.0) Prothrombin Time 14.4 SEC (9.30-11.50) H Prothromb Time International Ratio 1.4 (0.9-1.1) H Activated Partial Thromboplast Time 36 SEC (23-33) H Sodium Level 143 MMOL/L (136-145) Potassium Level 4.3 MMOL/L (3.5-5.1) Chloride Level 111 MMOL/L (98-107) H Carbon Dioxide Level 23 MMOL/L (21-32) Anion Gap 9 mmol/L (5-15) Blood Urea Nitrogen 38 mg/dL (7-18) H Creatinine 1.5 MG/DL (0.55-1.30) H Estimat Glomerular Filtration Rate 47.3 mL/min (>60) Glucose Level 95 MG/DL (74-106) Calcium Level 9.6 MG/DL (8.5-10.1) Total Bilirubin 0.3 MG/DL (0.2-1.0) Aspartate Amino Transf (AST/SGOT) 68 U/L (15-37) H Alanine Aminotransferase (ALT/SGPT) 36 U/L (12-78) Alkaline Phosphatase 242 U/L (46-116) H Pro-B-Type Natriuretic Peptide 611 pg/mL (0-125) H Total Protein 7.8 G/DL (6.4-8.2) Albumin 1.3 G/DL (3.4-5.0) L Globulin 6.5 g/dL Albumin/Globulin Ratio 0.2 (1.0-2.7) L Body Fluid Glucose Pending Body Fluid Total Protein Pending Current Medications Medications (Trade) Dose Ordered Sig/Serena Route PRN Reason Start Time Stop Time Status Last Admin Dose Admin Acetaminophen (Tylenol) 650 mg Q4H PRN GT Mild Pain/Temp > 100.5 08/11/17 20:45 09/10/17 20:44 08/12/17 13:55 Amiodarone HCl (Cordarone) 200 mg EVERY 12 HOURS GT 07/31/17 21:00 08/30/17 20:59 08/11/17 20:53 Chlorhexidine Gluconate (Ngoc-Hex 2%) 1 applic DAILY@2000 TOPIC 07/31/17 20:00 08/30/17 19:59 08/11/17 20:53 Colistimethate Sodium (Colistin *inhalation use only*) 150 mg Q12HR@10,22 INH 08/07/17 22:00 08/14/17 21:59 08/12/17 08:31 Colistimethate Sodium (Colistin) 75 mg EVERY 12 HOURS IVP 08/07/17 21:00 08/14/17 20:59 08/12/17 09:57 Dextrose (Dextrose 50%) STAT PRN IV Hypoglycemia 07/31/17 17:00 08/30/17 16:59 Heparin Sodium (Porcine) (Heparin 5000 units/ml) 5,000 units EVERY 12 HOURS SUBQ 07/31/17 21:00 08/30/17 20:59 08/12/17 10:01 Heparin Sodium/ Sodium Chloride (Heparin 2000 units/Ns 1000ml premix) 2,000 unit ONCE PRN INJ PICC PLACEMENT 08/03/17 09:00 09/02/17 08:59 Levetiracetam (Keppra) 250 mg BID GT 07/31/17 18:00 08/30/17 17:59 08/11/17 17:58 Lidocaine (Xylocaine 1% MPF 5ml) 10 ml ONCE INJ 08/12/17 09:40 08/12/17 23:59 Lorazepam (Ativan 2mg/ml 1ml) 2 mg Q2H PRN IV For Anxiety 08/06/17 15:00 08/13/17 23:59 Meropenem 2 gm/ Sodium Chloride 110 ml @ 220 mls/hr Q12HR IVPB 08/12/17 09:00 08/17/17 08:59 08/12/17 09:57 Micafungin Sodium 100 mg/Sodium Chloride 110 ml @ 110 mls/hr Q24H IVPB 08/12/17 18:30 08/19/17 18:29 UNV Morphine Sulfate (Morphine Sulfate) 4 mg Q4H PRN IVP Severe Pain (Pain Scale 7-10) 08/06/17 17:00 08/13/17 23:59 Ondansetron HCl (Zofran) 4 mg Q6H PRN IVP Nausea & Vomiting 07/31/17 17:00 08/30/17 16:59 Pantoprazole (Protonix) 40 mg DAILY IV 08/01/17 09:00 08/31/17 08:59 08/12/17 09:57 Phenytoin (Dilantin) 100 mg Q12HR GT 08/09/17 16:00 09/08/17 15:59 08/11/17 20:53 Polyethylene Glycol (Miralax) 17 gm DAILYPRN PRN ORAL Constipation 07/31/17 17:00 08/30/17 16:59 Sodium Chloride 1,000 ml @ 75 mls/hr [id number] IV 08/07/17 13:15 09/06/17 13:14 08/12/17 00:00 KRYSTIN JAQUEZ M.D. Aug 12, 2017 18:44
--- NOTE | 2017-08-12 18:45 | Diagnostic Imaging Report ---
Clinical Indication: Reason For Exam: ABD PAIN Technique: Spiral acquisitions obtained through the chest. No IV contrast utilized, . Multiplanar reconstructions generated. Total dose length product 1163.72 mGycm. CTDIvol(s) 17.01,11.8 mGy. Dose reduction achieved using automated exposure control Comparison: none Findings: Lung window images demonstrate consolidation and atelectasis of the right lung base. Extensive interstitial, possibly tree-in-bud, opacities are seen throughout the right lung, as well as groundglass opacities. Left lung demonstrates a small to moderate pleural effusion, as well as compressive atelectasis and possible consolidation at the left lung base there are vague interstitial opacities and groundglass opacities in the left lung, much less striking than on the right. Secretions are seen in the bilateral mainstem and bilateral lower lobe bronchi, not quite but nearly occlusive. The heart size is normal. No pericardial effusion. A prominent node is seen in the anterior pericardial fat. Prominent but not frankly enlarged mediastinal nodes are demonstrated. No hilar adenopathy. There is a left arm PICC there are prominent but not frankly enlarged axillary nodes. There is edema of the subcutaneous fat. The included portions of the thyroid are unremarkable. There is a tracheostomy. Gallbladder demonstrates gallbladder neck stones, also described on abdomen CT performed at the same time. There is a 1.5 cm low-attenuation lesion in segment 7 of the liver, not clearly cystic The bones are unremarkable Impression: Extensive interstitial opacities throughout the right lung as well as groundglass opacities. Large differential, suspect on the basis of pulmonary edema, particularly given evidence of edema elsewhere, but possibility of infection, including possible tuberculosis, should also be considered. Right lower lobe consolidation, may reflect pneumonia Less striking interstitial and airspace opacities in the left lung. Considerable secretions in the bilateral bronchi, as described Considerable atelectasis of the left lung base Left pleural effusion Right lobe liver lesion, not clearly cystic. Solid neoplasm not excluded. This is not visible on recent ultrasound. Findings discussed by phone with Dr. James at the time of interpretation The CT scanner at [facility] is accredited by the [employer] and the scans are performed using protocols designed to limit radiation exposure to as low as reasonably achievable to attain images of sufficient resolution adequate for diagnostic evaluation.
[2017-08-12 20:00] VITALS: BP 115/66
[2017-08-12] MEDS: Micafungin 100 MG in NS 110 ML IVPB SCH (21:16)
[2017-08-12] MEDS: Dyna-Hex 2% Top Sol 2oz TOPIC SCH (21:16)
[2017-08-13] VITALS: BP 108/62
[2017-08-13 04:00] VITALS: BP 130/74
[2017-08-13 05:13] LABS: HEMOGLOBIN 7.6 G/DL (14.2-18.0); MEAN CORPUSCULAR VOLUME 85 FL (80-99); PLATELET COUNT 309 K/UL (150-450); RED BLOOD COUNT 2.57 M/UL (4.70-6.10); RED CELL DISTRIBUTION WIDTH 16.2 % (11.6-14.8); WHITE BLOOD COUNT 10.5 K/UL (4.8-10.8)
[2017-08-13] MEDS: Acetaminophen 650mg/20.3ml GT PRN (05:36)
[2017-08-13 05:57] LABS: ALANINE AMINOTRANSFERASE 43 U/L (12-78); ALBUMIN 1.3 G/DL (3.4-5.0); ALBUMIN/GLOBULIN RATIO 0.2 (1.0-2.7); ALKALINE PHOSPHATASE 228 U/L (46-116); ANION GAP 8 mmol/L (5-15); ASPARTATE AMINO TRANSFERASE 118 U/L (15-37); BILIRUBIN,TOTAL 0.2 MG/DL (0.2-1.0); BLOOD UREA NITROGEN 35 mg/dL (7-18); CALCIUM 9.9 MG/DL (8.5-10.1); CARBON DIOXIDE 23 MMOL/L (21-32); CHLORIDE 112 MMOL/L (98-107); CREATININE 1.6 MG/DL (0.55-1.30); SODIUM 143 MMOL/L (136-145)
[2017-08-13 08:00] VITALS: BP 110/60
--- NOTE | 2017-08-13 08:27 | Pulmonology Progress Note ---
Assessment/Plan Problems: (1) Sepsis (2) Chronic respiratory failure (3) Encephalopathy (4) Pleural effusion, left (5) UTI (urinary tract infection) (6) Feeding by G-tube Assessment/Plan: discussed with radiologist, there is some change that the findings on CT chest could present TB. therefore, I will put the pt on isolation until we have some sputum AFB's Respiratory: monitor respiratory rate, adjust FIO2, CXR Cardiac: continue to monitor HR/BP Renal: F/U I&O Infectious Disease: check cultures Gastrointestinal: continue feedings/current rate Endocrine: monitor blood sugar, check TSH Neurologic: PRN Morphine Affect: PRN ativan Notes Reviewed: cotton header, renal Discussed with: consultants Subjective ROS Limited/Unobtainable: No Constitutional: Reports: no symptoms HEENT: Repors: no symptoms Respiratory: Reports: no symptoms Allergies: Coded Allergies: No Known Allergies (Unverified , 07/31/17) Objective Last 24 Hour Vital Signs Date Time Temp Pulse Resp B/P (MAP) Pulse Ox O2 Delivery O2 Flow Rate FiO2 08/13/17 06:54 111 23 30 08/13/17 06:20 100.0 08/13/17 06:20 100.0 100.0 08/13/17 05:36 101.0 08/13/17 05:30 101.0 101.0 08/13/17 05:22 118 27 30 08/13/17 04:00 98.4 106 22 130/74 98 Mechanical Ventilator 30 98.4 08/13/17 04:00 107 08/13/17 04:00 30 08/13/17 02:55 104 18 30 08/13/17 01:00 104 20 30 08/13/17 00:00 108 08/13/17 00:00 98.8 106 19 108/62 100 Mechanical Ventilator 30 98.8 08/12/17 23:01 104 18 30 08/12/17 23:01 104 18 Mechanical Ventilator 30 08/12/17 20:53 107 19 30 08/12/17 20:52 110 18 100 Mechanical Ventilator 08/12/17 20:50 106 18 97 Mechanical Ventilator 08/12/17 20:00 110 08/12/17 20:00 97.8 108 20 115/66 99 Mechanical Ventilator 30 97.8 08/12/17 20:00 30 08/12/17 19:21 107 18 30 08/12/17 16:39 110 18 30 08/12/17 16:00 97.5 108 18 90/58 99 Mechanical Ventilator 40 97.5 08/12/17 16:00 109 08/12/17 16:00 30 08/12/17 14:45 111 21 30 08/12/17 14:25 99.0 118 99.0 08/12/17 13:55 101.8 08/12/17 12:39 115 23 30 08/12/17 12:00 101.8 125 18 116/67 98 Mechanical Ventilator 40 101.8 08/12/17 12:00 30 08/12/17 12:00 117 08/12/17 10:35 110 18 30 08/12/17 08:44 114 18 100 Mechanical Ventilator 30 08/12/17 08:31 113 18 100 Mechanical Ventilator 30 08/12/17 08:30 113 18 30 Intake and Output 08/12/17 08/13/17 19:00 07:00 Intake Total 390 ml 1700 ml Output Total 1200 ml Balance 390 ml 500 ml Free Water 100 ml IV Total 1045 ml Tube Feeding 330 ml 495 ml Other 60 ml 60 ml Output Urine Total 1200 ml # Bowel Movements 100 General Appearance: WD/WN HEENT: normocephalic Respiratory/Chest: chest wall non-tender, lungs clear Cardiovascular: normal peripheral pulses, normal rate Abdomen: normal bowel sounds, soft, non tender Genitourinary: normal external genitalia Extremities: no cyanosis Skin: no ulcers Neurologic/Psychiatric: no motor/sensory deficits Lymphatic: no neck adenopathy Musculoskeletal: normal muscle bulk Laboratory Tests 08/12/17 12:19: Body Fluid Glucose [Pending], Body Fluid Total Protein [Pending] 08/13/17 03:00: White Blood Count 10.5, Red Blood Count 2.57L, Hemoglobin 7.6L, Hematocrit 22.0L , Mean Corpuscular Volume 85, Mean Corpuscular Hemoglobin 29.5, Mean Corpuscular Hemoglobin Concent 34.6, Red Cell Distribution Width 16.2H, Platelet Count 309, Mean Platelet Volume 6.2L, Neutrophils (%) (Auto) , Lymphocytes (%) (Auto) , Monocytes (%) (Auto) , Eosinophils (%) (Auto) , Basophils (%) (Auto) , Neutrophils % (Manual) [Pending], Lymphocytes % (Manual) [Pending], Platelet Estimate [Pending], Platelet Morphology [Pending], Sodium Level 143, Potassium Level 4.0, Chloride Level 112H, Carbon Dioxide Level 23, Anion Gap 8, Blood Urea Nitrogen 35H, Creatinine 1.6H, Estimat Glomerular Filtration Rate 43.9, Glucose Level 99, Calcium Level 9.9, Total Bilirubin 0.2, Aspartate Amino Transf (AST/SGOT) 118H, Alanine Aminotransferase (ALT/SGPT) 43, Alkaline Phosphatase 228H, Pro-B-Type Natriuretic Peptide 534H, Total Protein 7.4, Albumin 1.3L, Globulin 6.1, Albumin/Globulin Ratio 0.2L Current Medications Medications (Trade) Dose Ordered Sig/Serena Route PRN Reason Start Time Stop Time Status Last Admin Dose Admin Acetaminophen (Tylenol) 650 mg Q4H PRN GT Mild Pain/Temp > 100.5 08/11/17 20:45 09/10/17 20:44 08/13/17 05:36 Amiodarone HCl (Cordarone) 200 mg EVERY 12 HOURS GT 07/31/17 21:00 08/30/17 20:59 08/12/17 21:20 Chlorhexidine Gluconate (Ngoc-Hex 2%) 1 applic DAILY@2000 TOPIC 07/31/17 20:00 08/30/17 19:59 08/12/17 21:16 Colistimethate Sodium (Colistin *inhalation use only*) 150 mg Q12HR@10,22 INH 08/07/17 22:00 08/14/17 21:59 08/12/17 20:50 Colistimethate Sodium (Colistin) 75 mg EVERY 12 HOURS IVP 08/07/17 21:00 08/14/17 20:59 08/12/17 21:16 Dextrose (Dextrose 50%) STAT PRN IV Hypoglycemia 07/31/17 17:00 08/30/17 16:59 Heparin Sodium (Porcine) (Heparin 5000 units/ml) 5,000 units EVERY 12 HOURS SUBQ 07/31/17 21:00 08/30/17 20:59 08/12/17 21:19 Heparin Sodium/ Sodium Chloride (Heparin 2000 units/Ns 1000ml premix) 2,000 unit ONCE PRN INJ PICC PLACEMENT 08/03/17 09:00 09/02/17 08:59 Levetiracetam (Keppra) 250 mg BID GT 07/31/17 18:00 08/30/17 17:59 08/12/17 18:38 Lorazepam (Ativan 2mg/ml 1ml) 2 mg Q2H PRN IV For Anxiety 08/06/17 15:00 08/13/17 23:59 Meropenem 2 gm/ Sodium Chloride 110 ml @ 220 mls/hr Q12HR IVPB 08/12/17 09:00 08/17/17 08:59 08/12/17 22:24 Micafungin Sodium 100 mg/Sodium Chloride 110 ml @ 110 mls/hr Q24H IVPB 08/12/17 20:00 08/19/17 19:59 08/12/17 21:16 Morphine Sulfate (Morphine Sulfate) 4 mg Q4H PRN IVP Severe Pain (Pain Scale 7-10) 08/06/17 17:00 08/13/17 23:59 Ondansetron HCl (Zofran) 4 mg Q6H PRN IVP Nausea & Vomiting 07/31/17 17:00 08/30/17 16:59 Pantoprazole (Protonix) 40 mg DAILY IV 08/01/17 09:00 08/31/17 08:59 08/12/17 09:57 Phenytoin (Dilantin) 100 mg Q12HR GT 08/09/17 16:00 09/08/17 15:59 08/12/17 21:16 Polyethylene Glycol (Miralax) 17 gm DAILYPRN PRN ORAL Constipation 07/31/17 17:00 08/30/17 16:59 Sodium Chloride 1,000 ml @ 75 mls/hr [id number] IV 08/07/17 13:15 09/06/17 13:14 08/13/17 02:34 Tuberculin PPD (Tubersol (PPD)) 0.1 ml ONCE ONCE IDERMAL 08/13/17 10:00 08/13/17 10:01 NOEL MICHELLE Aug 13, 2017 08:27
[2017-08-13] MEDS: Amiodarone 200mg tab GT SCH ×2 (09:47→20:35)
[2017-08-13] MEDS: levETIRAcetam 500mg/5ml Liquid GT SCH ×2 (09:48→17:39)
[2017-08-13] MEDS: Pantoprazole Inj IV SCH (09:48)
[2017-08-13] MEDS: Heparin 5000 units/ml inj SUBQ SCH ×2 (09:51→20:37)
[2017-08-13] MEDS: Phenytoin Susp 100mg/4ml GT SCH ×2 (09:53→20:34)
[2017-08-13] MEDS ORDERED: PPD Tuberculin Skin Test 5TU IDERMAL ONE (10:00)
[2017-08-13] MEDS: Meropenem 2 GM in NS 110 ML IVPB SCH ×2 (10:02→20:35)
[2017-08-13] MEDS: Colistin 150mg vial IVP SCH ×2 (10:02→20:57)
--- NOTE | 2017-08-13 10:26 | Diagnostic Imaging Report ---
Indication: Shortest of breath Technique: XRAY Chest 1v Comparison: 08/12/2017 Findings: Tracheostomy and left PICC line are unchanged. Cardiomediastinal silhouette is stable. Bilateral interstitial and mild perihilar airspace edema/infiltrates are again noted. There is atelectasis in the left base. Impression: Slightly increased perihilar interstitial and airspace edema/infiltrates. Left basilar atelectasis.
[2017-08-13] MEDS: Colistin for inhalation INH SCH ×2 (10:51→21:08)
[2017-08-13 12:00] VITALS: BP 146/77
[2017-08-13 16:00] VITALS: BP 112/75
[2017-08-13] MEDS ORDERED: Tubing IV Secondary IV ONE (16:23)
--- NOTE | 2017-08-13 16:51 | Infectious Diseases Prog Note ---
Assessment/Plan Assessment/Plan ASSESSMENT: The patient is a 62-year-old male with: Blood Cx: CoNS probable line infection (PICC from out side facility was removed on and replaced on 08/03 ) Leukocytosis, increased Fever 08/12 CT C/A/P : no abscess Diarrhea CT: ? wall thickening of proximal and mid transverse and ascending colon.duodenum and proximal jejunum, and probable acute pancreatitis should be considered. ? Clostridium difficile: Neg ? ventilatory-associated pneumonia Scx: MDR PSA ( ? TB as per CT ) CCT: Extensive interstitial opacities throughout the right lung as well as groundglass opacities. Large differential, suspect on the basis of pulmonary edema, particularly given evidence of edema elsewhere, but possibility of infection, including possible tuberculosis, should also be considered. Right lower lobe consolidation, may reflect pneumonia (chest x-ray:Considerably worse pleural and parenchymal disease on the right. Slightly worse in pleural and parenchymal disease on the left, over 3 days ) Elevated alkaline phosphatase improving US Borderline gallbladder wall thickening, more likely artifact due to underdistention than real. Influenza: Neg Multiple decubitus of lower extremity. 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 Sacral Wnd : mixed growth ( Colonizer ) ESR: 130 , CRP : 8 Pl effusion: exudate , Pr : 4.4 , cell count : P ro empyema 3/ SP ultrasound-guided thoracentesis, of 400 cc BETSY Diabetes. Anemia. GERD. Hypertension. History of TBI. Seizure disorder PLAN: continue the patient on IV Merrem and IV / INH Colistin d# 8 / 42 ( treatment of osteo MDR ACB and Pneumonia MDR PSA ) and add Mycamine d# 2 ( empirically for possible j luis over growth ) ( Avycase is not provided in this hospital ) 3/ SP vancomycin d# 9 and Zosyn and Gent d# 4 3/ SP cefepime day # 5 Monitor blood cultures ( repeat Bl, Ur ,Sp) C Diff sputum AFB x3 and MTB PCR Pleural fluid wups and Cx : P Monitor chest x-ray noted that fungal serology ordered Subjective Allergies: Coded Allergies: No Known Allergies (Unverified , 07/31/17) Subjective febrile place in airborne isolation Objective Vital Signs Last 24 Hour Vital Signs Date Time Temp Pulse Resp B/P (MAP) Pulse Ox O2 Delivery O2 Flow Rate FiO2 08/13/17 16:00 98.6 108 22 112/75 96 Mechanical Ventilator 30 98.6 08/13/17 16:00 30 08/13/17 16:00 104 08/13/17 15:30 105 20 30 08/13/17 13:03 106 18 30 08/13/17 12:00 30 08/13/17 12:00 108 08/13/17 12:00 98.8 110 22 146/77 96 Mechanical Ventilator 30 98.8 08/13/17 11:00 104 20 100 Mechanical Ventilator 08/13/17 10:52 103 18 30 08/13/17 10:51 104 18 98 Mechanical Ventilator 08/13/17 08:48 106 23 30 08/13/17 08:00 100.0 110 22 110/60 96 Mechanical Ventilator 30 100.0 08/13/17 08:00 106 08/13/17 08:00 30 08/13/17 08:00 110 08/13/17 06:54 111 23 30 08/13/17 06:20 100.0 08/13/17 06:20 100.0 100.0 08/13/17 05:36 101.0 08/13/17 05:30 101.0 101.0 08/13/17 05:22 118 27 30 08/13/17 04:00 98.4 106 22 130/74 98 Mechanical Ventilator 30 98.4 08/13/17 04:00 107 08/13/17 04:00 30 08/13/17 02:55 104 18 30 08/13/17 01:00 104 20 30 08/13/17 00:00 108 08/13/17 00:00 98.8 106 19 108/62 100 Mechanical Ventilator 30 98.8 08/12/17 23:01 104 18 30 08/12/17 23:01 104 18 Mechanical Ventilator 30 08/12/17 20:53 107 19 30 08/12/17 20:52 110 18 100 Mechanical Ventilator 08/12/17 20:50 106 18 97 Mechanical Ventilator 08/12/17 20:00 110 08/12/17 20:00 97.8 108 20 115/66 99 Mechanical Ventilator 30 97.8 08/12/17 20:00 30 08/12/17 19:21 107 18 30 Height (Feet): 6 Height (Inches): 0.00 Weight (Pounds): 140 HEENT: mucous membranes moist Respiratory/Chest: normal breath sounds Cardiovascular: normal rate Abdomen: soft, non tender Laboratory Tests Test 08/13/17 03:00 08/13/17 08:00 08/13/17 09:40 White Blood Count 10.5 K/UL (4.8-10.8) Red Blood Count 2.57 M/UL (4.70-6.10) L Hemoglobin 7.6 G/DL (14.2-18.0) L Hematocrit 22.0 % (42.0-52.0) L Mean Corpuscular Volume 85 FL (80-99) Mean Corpuscular Hemoglobin 29.5 PG (27.0-31.0) Mean Corpuscular Hemoglobin Concent 34.6 G/DL (32.0-36.0) Red Cell Distribution Width 16.2 % (11.6-14.8) H Platelet Count 309 K/UL (150-450) Mean Platelet Volume 6.2 FL (6.5-10.1) L Neutrophils (%) (Auto) % (45.0-75.0) Lymphocytes (%) (Auto) % (20.0-45.0) Monocytes (%) (Auto) % (1.0-10.0) Eosinophils (%) (Auto) % (0.0-3.0) Basophils (%) (Auto) % (0.0-2.0) Differential Total Cells Counted 100 Neutrophils % (Manual) 65 % (45-75) Lymphocytes % (Manual) 18 % (20-45) L Monocytes % (Manual) 10 % (1-10) Eosinophils % (Manual) 7 % (0-3) H Basophils % (Manual) 0 % (0-2) Band Neutrophils 0 % (0-8) Platelet Estimate Adequate Platelet Morphology Normal Hypochromasia 1+ Anisocytosis 1+ Sodium Level 143 MMOL/L (136-145) Potassium Level 4.0 MMOL/L (3.5-5.1) Chloride Level 112 MMOL/L (98-107) H Carbon Dioxide Level 23 MMOL/L (21-32) Anion Gap 8 mmol/L (5-15) Blood Urea Nitrogen 35 mg/dL (7-18) H Creatinine 1.6 MG/DL (0.55-1.30) H Estimat Glomerular Filtration Rate 43.9 mL/min (>60) Glucose Level 99 MG/DL (74-106) Calcium Level 9.9 MG/DL (8.5-10.1) Total Bilirubin 0.2 MG/DL (0.2-1.0) Aspartate Amino Transf (AST/SGOT) 118 U/L (15-37) H Alanine Aminotransferase (ALT/SGPT) 43 U/L (12-78) Alkaline Phosphatase 228 U/L (46-116) H Lactate Dehydrogenase 198 U/L (81-234) Pro-B-Type Natriuretic Peptide 534 pg/mL (0-125) H Total Protein 7.4 G/DL (6.4-8.2) Albumin 1.3 G/DL (3.4-5.0) L Globulin 6.1 g/dL Albumin/Globulin Ratio 0.2 (1.0-2.7) L Cryptococcus Antigen Pending Blastomyces Ab Immunodiffusion Pending Histoplasma Mycelial Antibody Pending Histoplasma Antibody w Mycelial Ag Pending Histoplasma Antibody with Yeast Ag Pending Current Medications Medications (Trade) Dose Ordered Sig/Serena Route PRN Reason Start Time Stop Time Status Last Admin Dose Admin Acetaminophen (Tylenol) 650 mg Q4H PRN GT Mild Pain/Temp > 100.5 08/11/17 20:45 09/10/17 20:44 08/13/17 05:36 Amiodarone HCl (Cordarone) 200 mg EVERY 12 HOURS GT 07/31/17 21:00 08/30/17 20:59 08/13/17 09:47 Chlorhexidine Gluconate (Ngoc-Hex 2%) 1 applic DAILY@1999 TOPIC 07/31/17 20:00 08/30/17 19:59 08/12/17 21:16 Colistimethate Sodium (Colistin *inhalation use only*) 150 mg Q12HR@ INH 08/07/17 22:00 08/14/17 21:59 08/13/17 10:51 Colistimethate Sodium (Colistin) 75 mg EVERY 12 HOURS IVP 08/07/17 21:00 08/14/17 20:59 08/13/17 10:02 Dextrose (Dextrose 50%) STAT PRN IV Hypoglycemia 07/31/17 17:00 08/30/17 16:59 Heparin Sodium (Porcine) (Heparin 5000 units/ml) 5,000 units EVERY 12 HOURS SUBQ 07/31/17 21:00 08/30/17 20:59 08/13/17 09:51 Heparin Sodium/ Sodium Chloride (Heparin 2000 units/Ns 1000ml premix) 2,000 unit ONCE PRN INJ PICC PLACEMENT 08/03/17 09:00 09/02/17 08:59 Levetiracetam (Keppra) 250 mg BID GT 07/31/17 18:00 08/30/17 17:59 08/13/17 09:48 Lorazepam (Ativan 2mg/ml 1ml) 2 mg Q2H PRN IV For Anxiety 08/06/17 15:00 08/13/17 23:59 Meropenem 2 gm/ Sodium Chloride 110 ml @ 220 mls/hr Q12HR IVPB 08/12/17 09:00 08/17/17 08:59 08/13/17 10:02 Micafungin Sodium 100 mg/Sodium Chloride 110 ml @ 110 mls/hr Q24H IVPB 08/12/17 20:00 08/19/17 19:59 08/12/17 21:16 Morphine Sulfate (Morphine Sulfate) 4 mg Q4H PRN IVP Severe Pain (Pain Scale 7-10) 08/06/17 17:00 08/13/17 23:59 Ondansetron HCl (Zofran) 4 mg Q6H PRN IVP Nausea & Vomiting 07/31/17 17:00 08/30/17 16:59 Pantoprazole (Protonix) 40 mg DAILY IV 08/01/17 09:00 08/31/17 08:59 08/13/17 09:48 Phenytoin (Dilantin) 100 mg Q12HR GT 08/09/17 16:00 09/08/17 15:59 08/13/17 09:53 Polyethylene Glycol (Miralax) 17 gm DAILYPRN PRN ORAL Constipation 07/31/17 17:00 08/30/17 16:59 Sodium Chloride 1,000 ml @ 75 mls/hr [id number] IV 08/07/17 13:15 09/06/17 13:14 08/13/17 16:29 KRYSTIN JAQUEZ M.D. Aug 13, 2017 16:51
[2017-08-13] MEDS: Micafungin 100 MG in NS 110 ML IVPB SCH (19:52)
[2017-08-13] MEDS: Dyna-Hex 2% Top Sol 2oz TOPIC SCH (19:52)
[2017-08-13 20:00] VITALS: BP 98/55
[2017-08-14] VITALS: BP 98/55
[2017-08-14] MEDS: Acetaminophen 650mg/20.3ml GT PRN ×2 (00:33→12:25)
[2017-08-14 04:00] VITALS: BP 100/60
[2017-08-14 05:24] LABS: HEMATOCRIT 20.8 % (42.0-52.0); HEMOGLOBIN 7.4 G/DL (14.2-18.0); MEAN CORPUSCULAR VOLUME 84 FL (80-99); PLATELET COUNT 295 K/UL (150-450); RED BLOOD COUNT 2.47 M/UL (4.70-6.10); RED CELL DISTRIBUTION WIDTH 15.6 % (11.6-14.8); WHITE BLOOD COUNT 8.9 K/UL (4.8-10.8)
[2017-08-14 06:07] LABS: ALANINE AMINOTRANSFERASE 44 U/L (12-78); ALBUMIN 1.2 G/DL (3.4-5.0); ALBUMIN/GLOBULIN RATIO 0.2 (1.0-2.7); ALKALINE PHOSPHATASE 218 U/L (46-116); ANION GAP 9 mmol/L (5-15); ASPARTATE AMINO TRANSFERASE 122 U/L (15-37); BILIRUBIN,TOTAL 0.2 MG/DL (0.2-1.0); BLOOD UREA NITROGEN 34 mg/dL (7-18); CALCIUM 9.7 MG/DL (8.5-10.1); CARBON DIOXIDE 22 MMOL/L (21-32); CHLORIDE 115 MMOL/L (98-107); CREATININE 1.7 MG/DL (0.55-1.30); POTASSIUM 3.5 MMOL/L (3.5-5.1); SODIUM 145 MMOL/L (136-145)
[2017-08-14 08:00] VITALS: BP 138/78
[2017-08-14] MEDS: Heparin 5000 units/ml inj SUBQ SCH ×2 (09:00→21:33)
[2017-08-14] MEDS: levETIRAcetam 500mg/5ml Liquid GT SCH ×2 (09:38→18:37)
[2017-08-14] MEDS: Pantoprazole Inj IV SCH (09:39)
[2017-08-14] MEDS: Phenytoin Susp 100mg/4ml GT SCH ×2 (09:39→21:25)
[2017-08-14] MEDS: Amiodarone 200mg tab GT SCH ×2 (09:39→21:25)
[2017-08-14] MEDS: Meropenem 2 GM in NS 110 ML IVPB SCH ×2 (09:39→21:24)
[2017-08-14] MEDS: Colistin 150mg vial IVP SCH (09:43)
--- NOTE | 2017-08-14 10:29 | Pulmonolgy Critical Care Note ---
Critical Care - Asmt/Plan Problems: (1) Sepsis (2) Chronic respiratory failure (3) UTI (urinary tract infection) (4) Feeding by G-tube (5) Pressure ulcer Respiratory: monitor respiratory rate, adjust FIO2, CXR Cardiac: continue pressors, stop pressors, continue to monitor HR/BP Renal: keep IV fluid Infectious Disease: continue antibiotics Gastrointestinal: continue feedings/current rate Endocrine: monitor blood sugar, check TSH Neurologic: PRN Ativan, PRN Morphine Prophylaxis: Protonix, Heparin Notes Reviewed: [place], renal Discussed with: nurses, consultants, mental health case managercorporate human resources manager - Objective Last 24 Hour Vital Signs Date Time Temp Pulse Resp B/P (MAP) Pulse Ox O2 Delivery O2 Flow Rate FiO2 08/14/17 10:00 30 08/14/17 09:25 106 21 30 08/14/17 08:00 103 08/14/17 08:00 97.7 108 22 138/78 98 Mechanical Ventilator 30 97.7 08/14/17 07:29 102 23 30 08/14/17 05:24 105 18 30 08/14/17 04:00 102 08/14/17 04:00 99.5 104 20 100/60 98 Mechanical Ventilator 30 99.5 08/14/17 04:00 30 08/14/17 01:17 105 18 30 08/14/17 01:03 101.0 08/14/17 00:33 101.8 08/14/17 00:00 99.1 104 20 98/55 99 Mechanical Ventilator 30 99.1 08/14/17 00:00 30 08/13/17 23:58 105 18 30 08/13/17 21:16 105 18 96 Mechanical Ventilator 30 08/13/17 21:08 105 18 30 08/13/17 21:07 105 18 96 Mechanical Ventilator 40.0 30 08/13/17 21:07 30 08/13/17 20:00 99.1 104 20 98/55 99 Mechanical Ventilator 30 99.1 08/13/17 20:00 104 08/13/17 20:00 30 08/13/17 19:19 105 18 30 08/13/17 17:20 105 18 30 08/13/17 16:00 98.6 108 22 112/75 96 Mechanical Ventilator 30 98.6 08/13/17 16:00 30 08/13/17 16:00 104 08/13/17 15:30 105 20 30 08/13/17 13:03 106 18 30 08/13/17 12:00 30 08/13/17 12:00 108 08/13/17 12:00 98.8 110 22 146/77 96 Mechanical Ventilator 30 98.8 08/13/17 11:00 104 20 100 Mechanical Ventilator 08/13/17 10:52 103 18 30 08/13/17 10:51 104 18 98 Mechanical Ventilator Status: awake Condition: critical Neck: full ROM Lungs: clear Heart: HR/BP stable Abdomen: soft, non-tender Extremities: no C/C/E Decubiti: location Micro: Microbiology Date/Time Source Procedure Growth Status 08/13/17 03:00 Blood Blood Culture - Preliminary NO GROWTH AFTER 24 HOURS Resulted 08/13/17 03:00 Blood Blood Culture - Preliminary NO GROWTH AFTER 24 HOURS Resulted 08/14/17 03:30 Stool Clostridium difficile Toxin Assay - Final Complete 08/13/17 03:00 Urine,Clean Catch Urine Culture - Preliminary NO GROWTH Resulted Accucheck: 131 Critical Care - Subjective ROS Limited/Unobtainable: No Condition: critical EKG Rhythm: Sinus Rhythm FI02: 30 Vent Support Breath Rate: 18 Vent Support Mode: AC Vent Tidal Volume: 550 Sputum Amount: Scant PEEP: 5.0 PIP: 21 Tube Feeding Amount: 55 I&O: Intake and Output 08/13/17 08/14/17 19:00 07:00 Intake Total 1610 ml 1565 ml Output Total 1250 ml 1050 ml Balance 360 ml 515 ml Free Water 50 ml IV Total 1120 ml 970 ml Tube Feeding 440 ml 505 ml Other 90 ml Output Urine Total 1250 ml 1050 ml # Bowel Movements 3 CXR: no change Labs: Laboratory Tests Test 08/13/17 17:50 08/14/17 03:50 M. tuberculosis Complex DNA (PCR) Pending White Blood Count 8.9 K/UL (4.8-10.8) Red Blood Count 2.47 M/UL (4.70-6.10) L Hemoglobin 7.4 G/DL (14.2-18.0) L Hematocrit 20.8 % (42.0-52.0) L Mean Corpuscular Volume 84 FL (80-99) Mean Corpuscular Hemoglobin 29.8 PG (27.0-31.0) Mean Corpuscular Hemoglobin Concent 35.3 G/DL (32.0-36.0) Red Cell Distribution Width 15.6 % (11.6-14.8) H Platelet Count 295 K/UL (150-450) Mean Platelet Volume 6.5 FL (6.5-10.1) Neutrophils (%) (Auto) % (45.0-75.0) Lymphocytes (%) (Auto) % (20.0-45.0) Monocytes (%) (Auto) % (1.0-10.0) Eosinophils (%) (Auto) % (0.0-3.0) Basophils (%) (Auto) % (0.0-2.0) Neutrophils % (Manual) Pending Lymphocytes % (Manual) Pending Platelet Estimate Pending Platelet Morphology Pending Sodium Level 145 MMOL/L (136-145) Potassium Level 3.5 MMOL/L (3.5-5.1) Chloride Level 115 MMOL/L (98-107) H Carbon Dioxide Level 22 MMOL/L (21-32) Anion Gap 9 mmol/L (5-15) Blood Urea Nitrogen 34 mg/dL (7-18) H Creatinine 1.7 MG/DL (0.55-1.30) H Estimat Glomerular Filtration Rate 40.9 mL/min (>60) Glucose Level 98 MG/DL (74-106) Calcium Level 9.7 MG/DL (8.5-10.1) Total Bilirubin 0.2 MG/DL (0.2-1.0) Aspartate Amino Transf (AST/SGOT) 122 U/L (15-37) H Alanine Aminotransferase (ALT/SGPT) 44 U/L (12-78) Alkaline Phosphatase 218 U/L (46-116) H Total Protein 7.2 G/DL (6.4-8.2) Albumin 1.2 G/DL (3.4-5.0) L Globulin 6.0 g/dL Albumin/Globulin Ratio 0.2 (1.0-2.7) L NOEL MICHELLE Aug 14, 2017 10:29
[2017-08-14] MEDS: Colistin for inhalation INH SCH (11:09)
[2017-08-14 12:00] VITALS: BP 96/52
--- NOTE | 2017-08-14 13:18 | General Surgery Progress Note ---
General Surgery-Progress Note Subjective Symptoms: improved Additional Comments no acute events. leukocytosis resolved. improving Objective Last 24 Hour Vital Signs Date Time Temp Pulse Resp B/P (MAP) Pulse Ox O2 Delivery O2 Flow Rate FiO2 08/14/17 13:13 104 18 30 08/14/17 12:55 101.6 08/14/17 12:25 102.2 08/14/17 12:00 30 08/14/17 12:00 104 08/14/17 12:00 102.2 101 20 96/52 98 Mechanical Ventilator 30 102.2 08/14/17 11:19 102 20 98 Mechanical Ventilator 30 08/14/17 11:09 102 19 97 Mechanical Ventilator 40.0 30 08/14/17 11:05 102 20 30 08/14/17 10:00 30 08/14/17 09:25 106 21 30 08/14/17 08:00 103 08/14/17 08:00 97.7 108 22 138/78 98 Mechanical Ventilator 30 97.7 08/14/17 07:29 102 23 30 08/14/17 05:24 105 18 30 08/14/17 04:00 102 08/14/17 04:00 99.5 104 20 100/60 98 Mechanical Ventilator 30 99.5 08/14/17 04:00 30 08/14/17 01:17 105 18 30 08/14/17 00:33 101.8 08/14/17 00:00 99.1 104 20 98/55 99 Mechanical Ventilator 30 99.1 08/14/17 00:00 30 08/13/17 23:58 105 18 30 08/13/17 21:16 105 18 96 Mechanical Ventilator 30 08/13/17 21:08 105 18 30 08/13/17 21:07 105 18 96 Mechanical Ventilator 40.0 30 08/13/17 21:07 30 08/13/17 20:00 99.1 104 20 98/55 99 Mechanical Ventilator 30 99.1 08/13/17 20:00 104 08/13/17 20:00 30 08/13/17 19:19 105 18 30 08/13/17 17:20 105 18 30 08/13/17 16:00 98.6 108 22 112/75 96 Mechanical Ventilator 30 98.6 08/13/17 16:00 30 08/13/17 16:00 104 08/13/17 15:30 105 20 30 I&O Intake and Output 08/13/17 08/14/17 19:00 07:00 Intake Total 1610 ml 1565 ml Output Total 1250 ml 1050 ml Balance 360 ml 515 ml Free Water 50 ml IV Total 1120 ml 970 ml Tube Feeding 440 ml 505 ml Other 90 ml Output Urine Total 1250 ml 1050 ml # Bowel Movements 3 Dressing: dry Wound: clean, dry, intact Cardiovascular: RSR Respiratory: clear Abdomen: soft, flat, non-tender, present bowel sounds Extremities: no cyanosis Laboratory Tests Test 08/13/17 17:50 08/14/17 03:50 M. tuberculosis Complex DNA (PCR) Pending White Blood Count 8.9 K/UL (4.8-10.8) Red Blood Count 2.47 M/UL (4.70-6.10) L Hemoglobin 7.4 G/DL (14.2-18.0) L Hematocrit 20.8 % (42.0-52.0) L Mean Corpuscular Volume 84 FL (80-99) Mean Corpuscular Hemoglobin 29.8 PG (27.0-31.0) Mean Corpuscular Hemoglobin Concent 35.3 G/DL (32.0-36.0) Red Cell Distribution Width 15.6 % (11.6-14.8) H Platelet Count 295 K/UL (150-450) Mean Platelet Volume 6.5 FL (6.5-10.1) Neutrophils (%) (Auto) % (45.0-75.0) Lymphocytes (%) (Auto) % (20.0-45.0) Monocytes (%) (Auto) % (1.0-10.0) Eosinophils (%) (Auto) % (0.0-3.0) Basophils (%) (Auto) % (0.0-2.0) Differential Total Cells Counted 100 Neutrophils % (Manual) 61 % (45-75) Lymphocytes % (Manual) 23 % (20-45) Monocytes % (Manual) 8 % (1-10) Eosinophils % (Manual) 8 % (0-3) H Basophils % (Manual) 0 % (0-2) Band Neutrophils 0 % (0-8) Platelet Estimate Adequate Platelet Morphology Normal Hypochromasia 3+ Anisocytosis 1+ Sodium Level 145 MMOL/L (136-145) Potassium Level 3.5 MMOL/L (3.5-5.1) Chloride Level 115 MMOL/L (98-107) H Carbon Dioxide Level 22 MMOL/L (21-32) Anion Gap 9 mmol/L (5-15) Blood Urea Nitrogen 34 mg/dL (7-18) H Creatinine 1.7 MG/DL (0.55-1.30) H Estimat Glomerular Filtration Rate 40.9 mL/min (>60) Glucose Level 98 MG/DL (74-106) Calcium Level 9.7 MG/DL (8.5-10.1) Total Bilirubin 0.2 MG/DL (0.2-1.0) Aspartate Amino Transf (AST/SGOT) 122 U/L (15-37) H Alanine Aminotransferase (ALT/SGPT) 44 U/L (12-78) Alkaline Phosphatase 218 U/L (46-116) H Total Protein 7.2 G/DL (6.4-8.2) Albumin 1.2 G/DL (3.4-5.0) L Globulin 6.0 g/dL Albumin/Globulin Ratio 0.2 (1.0-2.7) L Plan Problems: (1) Pressure ulcer Assessment & Plan: sacral ulcers with epidermal abrasions, no necrotic tissue or dermal breakdown at this time. no signs of infection from sacral and hip wounds likely pressure in nature. can progress recommend dressings and skin barrier as currently being placed turn q2h keep pressure off wounds unfortunately given patients condition will need aggressive prevention or will progress. fortunately great nursing care being provided and currently stable. thank you for this consultation. will follow with recs. Jesus Martin Aug 14, 2017 13:18
[2017-08-14 16:00] VITALS: BP 92/52
--- NOTE | 2017-08-14 16:33 | Cardiology Report ---
APPROVED REPORT EKG Measurement Heart [id number] Sinus tachycardia Right bundle branch block Abnormal ECG
[2017-08-14 20:00] VITALS: BP 94/52
[2017-08-14] MEDS: Dyna-Hex 2% Top Sol 2oz TOPIC SCH (21:24)
[2017-08-14] MEDS: Micafungin 100 MG in NS 110 ML IVPB SCH (21:25)
[2017-08-15] VITALS: BP 92/52
[2017-08-15 04:00] VITALS: BP 112/63
[2017-08-15 06:12] LABS: HEMATOCRIT 22.1 % (42.0-52.0); HEMOGLOBIN 7.7 G/DL (14.2-18.0); MEAN CORPUSCULAR VOLUME 85 FL (80-99); PLATELET COUNT 321 K/UL (150-450); RED CELL DISTRIBUTION WIDTH 15.7 % (11.6-14.8); WHITE BLOOD COUNT 9.9 K/UL (4.8-10.8)
[2017-08-15 06:53] LABS: ALANINE AMINOTRANSFERASE 46 U/L (12-78); ALBUMIN 1.2 G/DL (3.4-5.0); ALBUMIN/GLOBULIN RATIO 0.2 (1.0-2.7); ALKALINE PHOSPHATASE 228 U/L (46-116); ANION GAP 10 mmol/L (5-15); ASPARTATE AMINO TRANSFERASE 100 U/L (15-37); BILIRUBIN,TOTAL 0.2 MG/DL (0.2-1.0); BLOOD UREA NITROGEN 31 mg/dL (7-18); CALCIUM 9.2 MG/DL (8.5-10.1); CARBON DIOXIDE 22 MMOL/L (21-32); CHLORIDE 113 MMOL/L (98-107); CREATININE 1.5 MG/DL (0.55-1.30); PHOSPHORUS 3.2 MG/DL (2.5-4.9); POTASSIUM 3.9 MMOL/L (3.5-5.1); SODIUM 145 MMOL/L (136-145)
[2017-08-15 08:00] VITALS: BP 103/65
[2017-08-15] MEDS: Phenytoin Susp 100mg/4ml GT SCH ×3 (08:44→20:14)
[2017-08-15] MEDS: levETIRAcetam 500mg/5ml Liquid GT SCH ×2 (08:45→18:18)
[2017-08-15] MEDS: Amiodarone 200mg tab GT SCH ×2 (08:45→20:14)
[2017-08-15] MEDS: Acetaminophen 650mg/20.3ml GT PRN (08:45)
[2017-08-15] MEDS: Pantoprazole Inj IV SCH (08:45)
[2017-08-15] MEDS: Heparin 5000 units/ml inj SUBQ SCH ×2 (08:46→20:20)
[2017-08-15] MEDS: Meropenem 2 GM in NS 110 ML IVPB SCH (09:59)
[2017-08-15 12:00] VITALS: BP 93/58
--- NOTE | 2017-08-15 12:00 | Infectious Diseases Prog Note ---
Assessment/Plan Assessment/Plan ASSESSMENT: The patient is a 62-year-old male with: Fever, ongoing- r/o pancreatitis, cholecystitis ( based on CT and us abd findings), recurrent bacteremia ? ventilatory-associated pneumonia Scx: MDR PSA (S gentamicin, Colistin) CCT: Extensive interstitial opacities throughout the right lung as well as groundglass opacities. Large differential, suspect on the basis of pulmonary edema, particularly given evidence of edema elsewhere, but possibility of infection, including possible tuberculosis, should also be considered. Right lower lobe consolidation, may reflect pneumonia (chest x-ray:Considerably worse pleural and parenchymal disease on the right. Slightly worse in pleural and parenchymal disease on the left, over 3 days ) Influenza: Neg Multiple decubitus of lower extremity. Left heel unstageable decubitus (no purulent discharge.) probable osteo per bone scan -no wound cx obtained NM : flow, blood pool, static activity involving the calcaneal tuberosity on the left. This is worrisome for acute osteomyelitis Sacral Wnd :- no signs of infection -Wnd Cx : MDR Kleb abd MDR ACB (colonizers) ESR: 130 , CRP : 8 Leukocytosis, resolved Elevated LFTs 08/12 CT C/A/P : no abscess. Evidence of anasarca, with generalized edema of the subcutaneous fat,retroperitoneal and mesenteric fat, trace ascites, small left pleural effusion. Possible wall thickening of proximal and mid transverse and ascending colon. Could represent colitis although possibly artifactual due to under distention. Very questionable wall thickening of the duodenum and proximal jejunum, if real could indicate duodenitis/enteritis and/or peptic ulcer disease. Gas bubbles in the anterior aspect of the right rectus abdominis muscle belly. Cholelithiasis. Diffusely somewhat prominent pancreas, probably baseline for this patient, but the possibility of acute pancreatitis should be considered. Scattered punctate microcalcifications may represent sequelae of chronic calcifying pancreatitis, versus arterial calcifications. Ectasia of the pancreatic duct could also indicate chronic calcified pancreatitis no definite pancreatic head mass, although evaluation for such is limited in the absence of IVcontrast US Borderline gallbladder wall thickening, more likely artifact due to underdistention than real. Blood Cx: CoNS probable line infection (PICC from out side facility was removed on and replaced on 08/03 ) Diarrhea CT: ? wall thickening of proximal and mid transverse and ascending colon.duodenum and proximal jejunum, and probable acute pancreatitis should be considered. ? Clostridium difficile: Neg Pl effusion: exudate , Pr : 4.4 , cell count : P ro empyema 3 SP ultrasound-guided thoracentesis, of 400 cc BETSY Diabetes. Anemia. GERD. Hypertension. History of TBI. Seizure disorder PLAN: -Continue INH colistin 03/19 for MDR PsA PNA -D/c IV Meropenem #10 -would not treat MDR ACB as this was obtained from sacral wound and there is not signs of infection sacral wound -For possible acute OM of L heel- will treat empirically, given no obtainable cultures, with IV Vancomycin and Ceftriaxone (abx d#/) -Continue Mycamine d# 4/5 ( empirically for possible j luis over growth ) ( Avycase is not provided in this hospital ) 3 SP IV Colistin #9 3/ SP vancomycin d# 9 and Zosyn and Gent d# 4 3 SP cefepime day # 5 -HIDA to eval for cholecystisis -Lipase,amylase -Repeat 2 sets of Bcx Monitor blood cultures ( repeat Bl, Ur ,Sp) sputum AFB x3 and MTB PCR Pleural fluid wups and Cx : P Monitor chest x-ray f/u fungal serologies Subjective Allergies: Coded Allergies: No Known Allergies (Unverified , 07/31/17) Subjective continues to be intermittetn febrile. Tm 102 leukocytosis rseolved Cdiff neg Objective Vital Signs Last 24 Hour Vital Signs Date Time Temp Pulse Resp B/P (MAP) Pulse Ox O2 Delivery O2 Flow Rate FiO2 08/15/17 09:15 98.7 08/15/17 08:45 102.0 08/15/17 08:40 120 21 30 08/15/17 08:00 119 08/15/17 07:30 117 25 30 08/15/17 05:31 111 22 30 08/15/17 04:08 115 08/15/17 04:00 97.9 98 18 112/63 98 Mechanical Ventilator 30 97.9 08/15/17 04:00 30 08/15/17 03:21 109 22 30 08/15/17 01:52 104 19 30 08/15/17 00:07 104 08/15/17 00:00 98.5 103 20 92/52 98 Mechanical Ventilator 30 98.5 08/14/17 23:33 103 19 30 08/14/17 21:21 101 19 30 08/14/17 20:00 98.3 86 22 94/52 98 Mechanical Ventilator 30 98.3 08/14/17 20:00 30 08/14/17 19:43 96 08/14/17 19:17 96 18 30 08/14/17 17:22 98 18 30 08/14/17 16:00 96 08/14/17 16:00 30 08/14/17 16:00 98.6 94 19 92/52 98 Mechanical Ventilator 30 98.6 08/14/17 15:25 97 18 30 08/14/17 13:13 104 18 30 08/14/17 12:25 102.2 08/14/17 12:00 30 08/14/17 12:00 104 08/14/17 12:00 102.2 101 20 96/52 98 Mechanical Ventilator 30 102.2 Height (Feet): 6 Height (Inches): 0.00 Weight (Pounds): 145 Microbiology Date/Time Source Procedure Growth Status 08/13/17 03:00 Blood Blood Culture - Preliminary NO GROWTH AFTER 24 HOURS Resulted 08/13/17 03:00 Blood Blood Culture - Preliminary NO GROWTH AFTER 24 HOURS Resulted 08/13/17 05:20 Sputum Gram Stain - Final Complete 08/13/17 05:20 Sputum Sputum Culture - Final Complete 08/14/17 03:30 Stool Clostridium difficile Toxin Assay - Final Complete 08/13/17 03:00 Urine,Clean Catch Urine Culture - Preliminary YEAST Resulted Laboratory Tests Test 08/15/17 04:30 08/15/17 08:45 White Blood Count 9.9 K/UL (4.8-10.8) Red Blood Count 2.60 M/UL (4.70-6.10) L Hemoglobin 7.7 G/DL (14.2-18.0) L Hematocrit 22.1 % (42.0-52.0) L Mean Corpuscular Volume 85 FL (80-99) Mean Corpuscular Hemoglobin 29.5 PG (27.0-31.0) Mean Corpuscular Hemoglobin Concent 34.7 G/DL (32.0-36.0) Red Cell Distribution Width 15.7 % (11.6-14.8) H Platelet Count 321 K/UL (150-450) Mean Platelet Volume 6.8 FL (6.5-10.1) Neutrophils (%) (Auto) % (45.0-75.0) Lymphocytes (%) (Auto) % (20.0-45.0) Monocytes (%) (Auto) % (1.0-10.0) Eosinophils (%) (Auto) % (0.0-3.0) Basophils (%) (Auto) % (0.0-2.0) Differential Total Cells Counted 100 Neutrophils % (Manual) 74 % (45-75) Lymphocytes % (Manual) 14 % (20-45) L Monocytes % (Manual) 4 % (1-10) Eosinophils % (Manual) 8 % (0-3) H Basophils % (Manual) 0 % (0-2) Band Neutrophils 0 % (0-8) Platelet Estimate Adequate Platelet Morphology Normal Hypochromasia 1+ Anisocytosis 1+ Sodium Level 145 MMOL/L (136-145) Potassium Level 3.9 MMOL/L (3.5-5.1) Chloride Level 113 MMOL/L (98-107) H Carbon Dioxide Level 22 MMOL/L (21-32) Anion Gap 10 mmol/L (5-15) Blood Urea Nitrogen 31 mg/dL (7-18) H Creatinine 1.5 MG/DL (0.55-1.30) H Estimat Glomerular Filtration Rate 47.3 mL/min (>60) Glucose Level 93 MG/DL (74-106) Calcium Level 9.2 MG/DL (8.5-10.1) Phosphorus Level 3.2 MG/DL (2.5-4.9) Magnesium Level 1.1 MG/DL (1.8-2.4) L Total Bilirubin 0.2 MG/DL (0.2-1.0) Aspartate Amino Transf (AST/SGOT) 100 U/L (15-37) H Alanine Aminotransferase (ALT/SGPT) 46 U/L (12-78) Alkaline Phosphatase 228 U/L (46-116) H Total Protein 7.2 G/DL (6.4-8.2) Albumin 1.2 G/DL (3.4-5.0) L Globulin 6.0 g/dL Albumin/Globulin Ratio 0.2 (1.0-2.7) L TB Test (T-Spot) Pending TB Test Nil Control (T-Spot) Pending TB Test Panel A (T-Spot) Pending TB Test Panel B (T-Spot) Pending TB Test Positive Control (T-Spot) Pending Arterial Blood pH 7.473 (7.350-7.450) Arterial Blood Partial Pressure CO2 26.6 mmHg (35.0-45.0) L Arterial Blood Partial Pressure O2 94.6 mmHg (75.0-100.0) Arterial Blood HCO3 19.1 mmol/L (22.0-26.0) L Arterial Blood Oxygen Saturation 97.0 % (92.0-98.0) Arterial Blood Base Excess -3.8 Juan Test Positive Current Medications Medications (Trade) Dose Ordered Sig/Serena Route PRN Reason Start Time Stop Time Status Last Admin Dose Admin Acetaminophen (Tylenol) 650 mg Q4H PRN GT Mild Pain/Temp > 100.5 08/11/17 20:45 09/10/17 20:44 08/15/17 08:45 Amiodarone HCl (Cordarone) 200 mg EVERY 12 HOURS GT 07/31/17 21:00 08/30/17 20:59 08/15/17 08:45 Chlorhexidine Gluconate (Ngoc-Hex 2%) 1 applic DAILY@2000 TOPIC 07/31/17 20:00 08/30/17 19:59 08/14/17 21:24 Dextrose (Dextrose 50%) STAT PRN IV Hypoglycemia 07/31/17 17:00 08/30/17 16:59 Heparin Sodium (Porcine) (Heparin 5000 units/ml) 5,000 units EVERY 12 HOURS SUBQ 07/31/17 21:00 08/30/17 20:59 08/14/17 21:33 Heparin Sodium/ Sodium Chloride (Heparin 2000 units/Ns 1000ml premix) 2,000 unit ONCE PRN INJ PICC PLACEMENT 08/03/17 09:00 09/02/17 08:59 Levetiracetam (Keppra) 250 mg BID GT 07/31/17 18:00 08/30/17 17:59 08/15/17 08:45 Meropenem 2 gm/ Sodium Chloride 110 ml @ 220 mls/hr Q12HR IVPB 08/12/17 09:00 08/17/17 08:59 08/15/17 09:59 Micafungin Sodium 100 mg/Sodium Chloride 110 ml @ 110 mls/hr Q24H IVPB 08/12/17 20:00 08/19/17 19:59 08/14/17 21:25 Ondansetron HCl (Zofran) 4 mg Q6H PRN IVP Nausea & Vomiting 07/31/17 17:00 08/30/17 16:59 Pantoprazole (Protonix) 40 mg DAILY IV 08/01/17 09:00 08/31/17 08:59 08/15/17 08:45 Phenytoin (Dilantin) 100 mg Q12HR GT 08/09/17 16:00 09/08/17 15:59 08/15/17 09:58 Polyethylene Glycol (Miralax) 17 gm DAILYPRN PRN ORAL Constipation 07/31/17 17:00 08/30/17 16:59 Sodium Chloride 1,000 ml @ 75 mls/hr [id number] IV 08/07/17 13:15 09/06/17 13:14 08/15/17 08:03 Francisca Bullock M.D. Aug 15, 2017 12:00
--- NOTE | 2017-08-15 12:13 | Diagnostic Imaging Report ---
Indication: Dyspnea Technique: One view of the chest Comparison: 08/13/2017 Findings: Left basilar atelectasis and possibly some consolidation persists. There is likely a small amount of pleural fluid on the left, unchanged. Right basilar hazy infiltrate and atelectasis have increased somewhat. There may be some associated pleural fluid. Perihilar interstitial congestion persists. Normal heart size. Tracheostomy, left arm PICC remain. There is questionably an old healed fracture deformity of the right clavicle. Impression: Over 2 days, increasing bilateral basilar atelectasis, consolidation, and pleural fluid
--- NOTE | 2017-08-15 12:14 | Pulmonolgy Critical Care Note ---
Critical Care - Asmt/Plan Problems: (1) Sepsis (2) Chronic respiratory failure (3) UTI (urinary tract infection) (4) Feeding by G-tube (5) Pressure ulcer Respiratory: monitor respiratory rate, adjust FIO2, CXR Cardiac: continue to monitor HR/BP Renal: F/U I&O Infectious Disease: check cultures, continue antibiotics Gastrointestinal: continue feedings/current rate Endocrine: monitor blood sugar, check TSH, check HgA1C, continue sliding scale insulin Hematologic: transfuse if hgb<8.5 Neurologic: PRN Morphine, keep patient comfortable Affect: PRN ativan Prophylaxis: Protonix, Heparin Notes Reviewed: cardio, renal Discussed with: nurses, 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 - Objective Last 24 Hour Vital Signs Date Time Temp Pulse Resp B/P (MAP) Pulse Ox O2 Delivery O2 Flow Rate FiO2 08/15/17 09:15 98.7 08/15/17 08:45 102.0 08/15/17 08:40 120 21 30 08/15/17 08:00 119 08/15/17 07:30 117 25 30 08/15/17 05:31 111 22 30 08/15/17 04:08 115 08/15/17 04:00 97.9 98 18 112/63 98 Mechanical Ventilator 30 97.9 08/15/17 04:00 30 08/15/17 03:21 109 22 30 08/15/17 01:52 104 19 30 08/15/17 00:07 104 08/15/17 00:00 98.5 103 20 92/52 98 Mechanical Ventilator 30 98.5 08/14/17 23:33 103 19 30 08/14/17 21:21 101 19 30 08/14/17 20:00 98.3 86 22 94/52 98 Mechanical Ventilator 30 98.3 08/14/17 20:00 30 08/14/17 19:43 96 08/14/17 19:17 96 18 30 08/14/17 17:22 98 18 30 08/14/17 16:00 96 08/14/17 16:00 30 08/14/17 16:00 98.6 94 19 92/52 98 Mechanical Ventilator 30 98.6 08/14/17 15:25 97 18 30 08/14/17 13:13 104 18 30 08/14/17 12:25 102.2 Status: awake Condition: grave HEENT: atraumatic Lungs: rales, rhonchi Heart: HR/BP stable Abdomen: soft, non-tender Extremities: no C/C/E, edema Decubiti: location Micro: Microbiology Date/Time Source Procedure Growth Status 08/13/17 03:00 Blood Blood Culture - Preliminary NO GROWTH AFTER 24 HOURS Resulted 08/13/17 03:00 Blood Blood Culture - Preliminary NO GROWTH AFTER 24 HOURS Resulted 08/13/17 05:20 Sputum Gram Stain - Final Complete 08/13/17 05:20 Sputum Sputum Culture - Final Complete 08/14/17 03:30 Stool Clostridium difficile Toxin Assay - Final Complete 08/13/17 03:00 Urine,Clean Catch Urine Culture - Preliminary YEAST Resulted Accucheck: 131 Critical Care - Subjective ROS Limited/Unobtainable: Yes Condition: critical EKG Rhythm: V-Paced FI02: 30 Vent Support Breath Rate: 18 Vent Support Mode: AC Vent Tidal Volume: 550 Sputum Amount: Scant PEEP: 5.0 PIP: 23 Tube Feeding Amount: 55 I&O: Intake and Output 08/14/17 08/15/17 19:00 07:00 Intake Total 1027.5 ml 1675 ml Output Total 1000 ml Balance 27.5 ml 1675 ml Free Water 60 ml IV Total 972.5 ml 1010 ml Tube Feeding 55 ml 605 ml Output Urine Total 1000 ml # Bowel Movements 4 1 CXR: no change Labs: Laboratory Tests Test 08/15/17 04:30 08/15/17 08:45 White Blood Count 9.9 K/UL (4.8-10.8) Red Blood Count 2.60 M/UL (4.70-6.10) L Hemoglobin 7.7 G/DL (14.2-18.0) L Hematocrit 22.1 % (42.0-52.0) L Mean Corpuscular Volume 85 FL (80-99) Mean Corpuscular Hemoglobin 29.5 PG (27.0-31.0) Mean Corpuscular Hemoglobin Concent 34.7 G/DL (32.0-36.0) Red Cell Distribution Width 15.7 % (11.6-14.8) H Platelet Count 321 K/UL (150-450) Mean Platelet Volume 6.8 FL (6.5-10.1) Neutrophils (%) (Auto) % (45.0-75.0) Lymphocytes (%) (Auto) % (20.0-45.0) Monocytes (%) (Auto) % (1.0-10.0) Eosinophils (%) (Auto) % (0.0-3.0) Basophils (%) (Auto) % (0.0-2.0) Differential Total Cells Counted 100 Neutrophils % (Manual) 74 % (45-75) Lymphocytes % (Manual) 14 % (20-45) L Monocytes % (Manual) 4 % (1-10) Eosinophils % (Manual) 8 % (0-3) H Basophils % (Manual) 0 % (0-2) Band Neutrophils 0 % (0-8) Platelet Estimate Adequate Platelet Morphology Normal Hypochromasia 1+ Anisocytosis 1+ Sodium Level 145 MMOL/L (136-145) Potassium Level 3.9 MMOL/L (3.5-5.1) Chloride Level 113 MMOL/L (98-107) H Carbon Dioxide Level 22 MMOL/L (21-32) Anion Gap 10 mmol/L (5-15) Blood Urea Nitrogen 31 mg/dL (7-18) H Creatinine 1.5 MG/DL (0.55-1.30) H Estimat Glomerular Filtration Rate 47.3 mL/min (>60) Glucose Level 93 MG/DL (74-106) Calcium Level 9.2 MG/DL (8.5-10.1) Phosphorus Level 3.2 MG/DL (2.5-4.9) Magnesium Level 1.1 MG/DL (1.8-2.4) L Total Bilirubin 0.2 MG/DL (0.2-1.0) Aspartate Amino Transf (AST/SGOT) 100 U/L (15-37) H Alanine Aminotransferase (ALT/SGPT) 46 U/L (12-78) Alkaline Phosphatase 228 U/L (46-116) H Total Protein 7.2 G/DL (6.4-8.2) Albumin 1.2 G/DL (3.4-5.0) L Globulin 6.0 g/dL Albumin/Globulin Ratio 0.2 (1.0-2.7) L TB Test (T-Spot) Pending TB Test Nil Control (T-Spot) Pending TB Test Panel A (T-Spot) Pending TB Test Panel B (T-Spot) Pending TB Test Positive Control (T-Spot) Pending Arterial Blood pH 7.473 (7.350-7.450) Arterial Blood Partial Pressure CO2 26.6 mmHg (35.0-45.0) L Arterial Blood Partial Pressure O2 94.6 mmHg (75.0-100.0) Arterial Blood HCO3 19.1 mmol/L (22.0-26.0) L Arterial Blood Oxygen Saturation 97.0 % (92.0-98.0) Arterial Blood Base Excess -3.8 Juan Test Positive NOEL MICHELLE Aug 15, 2017 12:13
[2017-08-15 12:51] LABS: AMYLASE 37 U/L (25-115)
[2017-08-15] MEDS: Vancomycin 1gm/D5W 275ml IVPB SCH ×2 (13:39)
[2017-08-15 16:00] VITALS: BP 128/77
[2017-08-15 20:00] VITALS: BP 128/77
[2017-08-15] MEDS: Micafungin 100 MG in NS 110 ML IVPB SCH (20:13)
[2017-08-15] MEDS: Dyna-Hex 2% Top Sol 2oz TOPIC SCH (20:13)
[2017-08-15] MEDS: cefTRIAXone 2 GM in NS 55 ML IVPB SCH (20:15)
[2017-08-15] MEDS: Colistin for inhalation INH SCH (22:00)
[2017-08-16] VITALS: BP 108/63
[2017-08-16 04:00] VITALS: BP 99/63
[2017-08-16 04:48] LABS: HEMOGLOBIN 7.7 G/DL (14.2-18.0); MEAN CORPUSCULAR VOLUME 84 FL (80-99); PLATELET COUNT 342 K/UL (150-450); RED BLOOD COUNT 2.73 M/UL (4.70-6.10); RED CELL DISTRIBUTION WIDTH 15.6 % (11.6-14.8); WHITE BLOOD COUNT 12.8 K/UL (4.8-10.8)
[2017-08-16 05:45] LABS: ALANINE AMINOTRANSFERASE 35 U/L (12-78); ALBUMIN 1.2 G/DL (3.4-5.0); ALBUMIN/GLOBULIN RATIO 0.2 (1.0-2.7); ALKALINE PHOSPHATASE 218 U/L (46-116); ANION GAP 10 mmol/L (5-15); ASPARTATE AMINO TRANSFERASE 68 U/L (15-37); BILIRUBIN,TOTAL 0.2 MG/DL (0.2-1.0); BLOOD UREA NITROGEN 29 mg/dL (7-18); CALCIUM 9.4 MG/DL (8.5-10.1); CARBON DIOXIDE 21 MMOL/L (21-32); CHLORIDE 112 MMOL/L (98-107); CREATININE 1.5 MG/DL (0.55-1.30); POTASSIUM 3.9 MMOL/L (3.5-5.1); SODIUM 143 MMOL/L (136-145)
[2017-08-16 08:00] VITALS: BP 97/58
[2017-08-16] MEDS: Pantoprazole Inj IV SCH (08:38)
[2017-08-16] MEDS: Heparin 5000 units/ml inj SUBQ SCH ×2 (08:38→21:08)
[2017-08-16] MEDS: Amiodarone 200mg tab GT SCH ×2 (08:39→21:09)
[2017-08-16] MEDS: Phenytoin Susp 100mg/4ml GT SCH ×2 (08:40→21:09)
[2017-08-16] MEDS: levETIRAcetam 500mg/5ml Liquid GT SCH ×2 (08:40→18:03)
--- NOTE | 2017-08-16 10:39 | Pulmonolgy Critical Care Note ---
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, renal Discussed with: nurses, consultants, bottle casermanager laboratory - Objective Last 24 Hour Vital Signs Date Time Temp Pulse Resp B/P (MAP) Pulse Ox O2 Delivery O2 Flow Rate FiO2 08/16/17 09:11 110 18 30 08/16/17 08:00 108 08/16/17 08:00 98.7 108 24 97/58 94 Mechanical Ventilator 30 98.7 08/16/17 08:00 30 08/16/17 07:50 108 08/16/17 06:50 108 18 30 08/16/17 05:04 113 21 30 08/16/17 04:00 107 08/16/17 04:00 30 08/16/17 04:00 99.7 108 22 99/63 94 Mechanical Ventilator 30 99.7 08/16/17 02:43 104 15 30 08/16/17 01:18 111 17 30 08/16/17 00:09 110 08/16/17 00:00 98.7 103 22 108/63 96 Mechanical Ventilator 30 98.7 08/15/17 23:24 108 18 30 08/15/17 20:45 112 19 30 08/15/17 20:00 30 08/15/17 20:00 111 08/15/17 20:00 98.6 111 20 128/77 94 Mechanical Ventilator 30 98.6 08/15/17 19:02 110 18 30 08/15/17 16:48 106 21 30 08/15/17 16:00 99.1 103 24 128/77 99 Mechanical Ventilator 30 99.1 08/15/17 16:00 97 08/15/17 16:00 30 08/15/17 14:55 99 25 30 08/15/17 12:45 98 18 30 08/15/17 12:00 98.2 103 18 93/58 94 Mechanical Ventilator 30 98.2 08/15/17 12:00 30 08/15/17 10:40 109 18 30 Status: obtunded Condition: critical HEENT: atraumatic Neck: full ROM Heart: HR/BP stable, HR/BP unstable Abdomen: soft, active bowel sounds, feeding tube Extremities: no C/C/E Decubiti: location Micro: Microbiology Date/Time Source Procedure Growth Status 08/13/17 17:50 Blood Blood Culture - Preliminary NO GROWTH AFTER 48 HOURS Resulted 08/13/17 17:20 Blood Blood Culture - Preliminary NO GROWTH AFTER 48 HOURS Resulted 08/14/17 05:00 Sputum AFB Specimen Processing Tissue - Final Resulted 08/14/17 05:00 Sputum Acid Fast Bacilli Smear - Final Resulted 08/14/17 05:00 Sputum Acid Fast Bacilli Culture Pending Resulted 08/14/17 03:30 Stool Clostridium difficile Toxin Assay - Final Complete Accucheck: 131 Critical Care - Subjective ROS Limited/Unobtainable: No Condition: critical EKG Rhythm: Sinus Rhythm FI02: 30 Vent Support Breath Rate: 18 Vent Support Mode: AC Vent Tidal Volume: 550 Sputum Amount: Scant PEEP: 5.0 PIP: 24 Tube Feeding Amount: 55 I&O: Intake and Output 08/15/17 08/16/17 19:00 07:00 Intake Total 2068.7500 ml 1298.75 ml Output Total 1200 ml 800 ml Balance 868.7500 ml 498.75 ml Free Water 50 ml 50 ml IV Total 1368.7500 ml 973.75 ml Tube Feeding 550 ml 275 ml Other 100 ml Output Urine Total 1200 ml 800 ml # Bowel Movements 2 CXR: no change Labs: Laboratory Tests Test 08/16/17 04:00 White Blood Count 12.8 K/UL (4.8-10.8) H Red Blood Count 2.73 M/UL (4.70-6.10) L Hemoglobin 7.7 G/DL (14.2-18.0) L Hematocrit 23.0 % (42.0-52.0) L Mean Corpuscular Volume 84 FL (80-99) Mean Corpuscular Hemoglobin 28.2 PG (27.0-31.0) Mean Corpuscular Hemoglobin Concent 33.4 G/DL (32.0-36.0) Red Cell Distribution Width 15.6 % (11.6-14.8) H Platelet Count 342 K/UL (150-450) Mean Platelet Volume 7.9 FL (6.5-10.1) Neutrophils (%) (Auto) % (45.0-75.0) Lymphocytes (%) (Auto) % (20.0-45.0) Monocytes (%) (Auto) % (1.0-10.0) Eosinophils (%) (Auto) % (0.0-3.0) Basophils (%) (Auto) % (0.0-2.0) Differential Total Cells Counted 100 Neutrophils % (Manual) 62 % (45-75) Lymphocytes % (Manual) 21 % (20-45) Monocytes % (Manual) 7 % (1-10) Eosinophils % (Manual) 9 % (0-3) H Basophils % (Manual) 1 % (0-2) Band Neutrophils 0 % (0-8) Platelet Estimate Adequate Platelet Morphology Normal Hypochromasia 1+ Anisocytosis 1+ Erythrocyte Sedimentation Rate 134 MM/HR (0-20) H Sodium Level 143 MMOL/L (136-145) Potassium Level 3.9 MMOL/L (3.5-5.1) Chloride Level 112 MMOL/L (98-107) H Carbon Dioxide Level 21 MMOL/L (21-32) Anion Gap 10 mmol/L (5-15) Blood Urea Nitrogen 29 mg/dL (7-18) H Creatinine 1.5 MG/DL (0.55-1.30) H Estimat Glomerular Filtration Rate 47.3 mL/min (>60) Glucose Level 110 MG/DL (74-106) H Calcium Level 9.4 MG/DL (8.5-10.1) Total Bilirubin 0.2 MG/DL (0.2-1.0) Aspartate Amino Transf (AST/SGOT) 68 U/L (15-37) H Alanine Aminotransferase (ALT/SGPT) 35 U/L (12-78) Alkaline Phosphatase 218 U/L (46-116) H C-Reactive Protein, Quantitative 13.5 mg/dL (0.00-0.90) H Pro-B-Type Natriuretic Peptide 580 pg/mL (0-125) H Total Protein 7.2 G/DL (6.4-8.2) Albumin 1.2 G/DL (3.4-5.0) L Globulin 6.0 g/dL Albumin/Globulin Ratio 0.2 (1.0-2.7) L HIV (1&2) Antibody Rapid Negative (NEGATIVE) Ernestina James MD Aug 16, 2017 10:39
[2017-08-16] MEDS ORDERED: Morphine Sulfate 2mg/ml Inj IVP ONE (10:45)
--- NOTE | 2017-08-16 11:51 | Diagnostic Imaging Report ---
Indication: Dyspnea Technique: One view of the chest Comparison: 08/15/2017 Findings: Interim complete opacification of the right hemithorax. Due to rightward patient rotation, unclear as to whether the mediastinum is shifted, but suspect that it is to some extent. There is suggestion of abrupt termination of the right mainstem bronchus Tracheostomy remains. There is some atelectasis at the left lung base. Impression: Complete opacification right hemithorax. Probably due to atelectasis related to endobronchial occlusion at the level of the right mainstem bronchus. There may also be a significant component of pleural effusion. Other findings as noted. Findings discussed by phone with Dr. James at the time of interpretation
[2017-08-16 12:00] VITALS: BP 94/64
--- NOTE | 2017-08-16 14:52 | Diagnostic Imaging Report ---
Indications: Gallstones, abnormal abdominal CT Technique: IV administration 5.5 mCi 99 M technetium Choletec. Serial images obtained over the abdomen for one hour Comparison: None Findings: Prompt tracer uptake within the liver. Extrahepatic bile ducts are seen at 's 10 minutes. Excretion into the duodenum demonstrated at 13 minutes. Gallbladder visualized at 31 minutes. Impression: Negative. No evidence of acute cholecystitis or common bile duct obstruction
[2017-08-16] MEDS: Vancomycin 1gm/D5W 275ml IVPB SCH ×2 (15:08)
[2017-08-16 16:00] VITALS: BP 93/63
--- NOTE | 2017-08-16 18:11 | Infectious Diseases Prog Note ---
Assessment/Plan Assessment/Plan ASSESSMENT: The patient is a 62-year-old male with: Fever, improving ongoing- r/o recurrent bacteremia- ? due to mucous plug vs parapneumonic effusion -HIDA scan neg -CXR: Complete opacification right hemithorax. Probably due to atelectasis related to endobronchial occlusion at the level of the right mainstem bronchus. There may also be a significant component of pleural effusion. Complete opacification R lung- ?mucous plug vs pleural effusion ? ventilatory-associated pneumonia Scx: MDR PSA (S gentamicin, Colistin) CCT: Extensive interstitial opacities throughout the right lung as well as groundglass opacities. Large differential, suspect on the basis of pulmonary edema, particularly given evidence of edema elsewhere, but possibility of infection, including possible tuberculosis, should also be considered. Right lower lobe consolidation, may reflect pneumonia (chest x-ray:Considerably worse pleural and parenchymal disease on the right. Slightly worse in pleural and parenchymal disease on the left, over 3 days ) Influenza: Neg -AFB sp cx smear neg x1; 2 pending, MTB PCR pending -fugal serologies pending -HIV ag/ab neg Multiple decubitus of lower extremity. Left heel unstageable decubitus (no purulent discharge.) probable osteo per bone scan -no wound cx obtained NM : flow, blood pool, static activity involving the calcaneal tuberosity on the left. This is worrisome for acute osteomyelitis Sacral Wnd :- no signs of infection -Wnd Cx : MDR Kleb abd MDR ACB (colonizers) ESR: 130 , CRP : 8 Leukocytosis, mild, recurrent -Cdif fneg Elevated LFTs; improving 08/12 CT C/A/P : no abscess. Evidence of anasarca, with generalized edema of the subcutaneous fat,retroperitoneal and mesenteric fat, trace ascites, small left pleural effusion. Possible wall thickening of proximal and mid transverse and ascending colon. Could represent colitis although possibly artifactual due to under distention. Very questionable wall thickening of the duodenum and proximal jejunum, if real could indicate duodenitis/enteritis and/or peptic ulcer disease. Gas bubbles in the anterior aspect of the right rectus abdominis muscle belly. Cholelithiasis. Diffusely somewhat prominent pancreas, probably baseline for this patient, but the possibility of acute pancreatitis should be considered. Scattered punctate microcalcifications may represent sequelae of chronic calcifying pancreatitis, versus arterial calcifications. Ectasia of the pancreatic duct could also indicate chronic calcified pancreatitis no definite pancreatic head mass, although evaluation for such is limited in the absence of IVcontrast US Borderline gallbladder wall thickening, more likely artifact due to underdistention than real. Blood Cx: CoNS probable line infection (PICC from out side facility was removed on and replaced on 08/03 ) Diarrhea CT: ? wall thickening of proximal and mid transverse and ascending colon.duodenum and proximal jejunum, and probable acute pancreatitis should be considered. ? Clostridium difficile: Neg Pl effusion: exudate , Pr : 4.4 , cell count : P ro empyema 08/12 SP ultrasound-guided thoracentesis, of 400 cc BETSY Diabetes. Anemia. GERD. Hypertension. History of TBI. Seizure disorder PLAN: -Continue INH colistin 04/19 for MDR PsA PNA -would not treat MDR ACB as this was obtained from sacral wound and there is not signs of infection sacral wound -For possible acute OM of L heel- will treat empirically, given no obtainable cultures, with IV Vancomycin and Ceftriaxone (abx d#) -Continue Mycamine d# 5/ ( empirically for possible j luis over growth ) -f/u repeat Bcx -?Bronch vs thoracentesis- for R lung opacification- will defer to pulm 08/15 SP Meropenem #10 3/ SP IV Colistin #9 3/4 SP vancomycin d# 9 and Zosyn and Gent d# 4 3/ SP cefepime day # 5 Monitor blood cultures ( repeat Bl, Ur ,Sp) sputum AFB x3 and MTB PCR -per CT suggestion of TB, although low suspicion Pleural fluid wups and Cx : P Monitor chest x-ray f/u fungal serologies Subjective Allergies: Coded Allergies: No Known Allergies (Unverified , 07/31/17) Subjective afebrile in almost 36rs recurent mild leukocytosis CXR with opcaficiation of R hemithorax Objective Vital Signs Last 24 Hour Vital Signs Date Time Temp Pulse Resp B/P (MAP) Pulse Ox O2 Delivery O2 Flow Rate FiO2 08/16/17 16:53 100 16 30 08/16/17 16:00 30 08/16/17 16:00 104 08/16/17 16:00 98.7 103 18 93/63 99 Mechanical Ventilator 30 98.7 08/16/17 15:06 107 16 30 08/16/17 13:11 108 21 30 08/16/17 12:00 30 08/16/17 12:00 98.5 105 19 94/64 95 Mechanical Ventilator 30 98.5 08/16/17 11:51 105 08/16/17 11:04 105 21 30 08/16/17 09:11 110 18 30 08/16/17 08:00 108 08/16/17 08:00 98.7 108 24 97/58 94 Mechanical Ventilator 30 98.7 08/16/17 08:00 30 08/16/17 07:50 108 08/16/17 06:50 108 18 30 08/16/17 05:04 113 21 30 08/16/17 04:00 107 08/16/17 04:00 30 08/16/17 04:00 99.7 108 22 99/63 94 Mechanical Ventilator 30 99.7 08/16/17 02:43 104 15 30 08/16/17 01:18 111 17 30 08/16/17 00:09 110 08/16/17 00:00 98.7 103 22 108/63 96 Mechanical Ventilator 30 98.7 08/15/17 23:24 108 18 30 08/15/17 20:45 112 19 30 08/15/17 20:00 30 08/15/17 20:00 111 08/15/17 20:00 98.6 111 20 128/77 94 Mechanical Ventilator 30 98.6 08/15/17 19:02 110 18 30 Height (Feet): 6 Height (Inches): 0.00 Weight (Pounds): 140 Objective HEENT: atraumatic Neck: full ROM Heart: HR/BP stable, HR/BP unstable Abdomen: soft, active bowel sounds, feeding tube Extremities: no C/C/E Decubiti: location Microbiology Date/Time Source Procedure Growth Status 08/14/17 05:00 Sputum AFB Specimen Processing Tissue - Final Resulted 08/14/17 05:00 Sputum Acid Fast Bacilli Smear - Final Resulted 08/14/17 05:00 Sputum Acid Fast Bacilli Culture Pending Resulted 08/14/17 03:30 Stool Clostridium difficile Toxin Assay - Final Complete Laboratory Tests Test 08/16/17 04:00 White Blood Count 12.8 K/UL (4.8-10.8) H Red Blood Count 2.73 M/UL (4.70-6.10) L Hemoglobin 7.7 G/DL (14.2-18.0) L Hematocrit 23.0 % (42.0-52.0) L Mean Corpuscular Volume 84 FL (80-99) Mean Corpuscular Hemoglobin 28.2 PG (27.0-31.0) Mean Corpuscular Hemoglobin Concent 33.4 G/DL (32.0-36.0) Red Cell Distribution Width 15.6 % (11.6-14.8) H Platelet Count 342 K/UL (150-450) Mean Platelet Volume 7.9 FL (6.5-10.1) Neutrophils (%) (Auto) % (45.0-75.0) Lymphocytes (%) (Auto) % (20.0-45.0) Monocytes (%) (Auto) % (1.0-10.0) Eosinophils (%) (Auto) % (0.0-3.0) Basophils (%) (Auto) % (0.0-2.0) Differential Total Cells Counted 100 Neutrophils % (Manual) 62 % (45-75) Lymphocytes % (Manual) 21 % (20-45) Monocytes % (Manual) 7 % (1-10) Eosinophils % (Manual) 9 % (0-3) H Basophils % (Manual) 1 % (0-2) Band Neutrophils 0 % (0-8) Platelet Estimate Adequate Platelet Morphology Normal Hypochromasia 1+ Anisocytosis 1+ Erythrocyte Sedimentation Rate 134 MM/HR (0-20) H Sodium Level 143 MMOL/L (136-145) Potassium Level 3.9 MMOL/L (3.5-5.1) Chloride Level 112 MMOL/L (98-107) H Carbon Dioxide Level 21 MMOL/L (21-32) Anion Gap 10 mmol/L (5-15) Blood Urea Nitrogen 29 mg/dL (7-18) H Creatinine 1.5 MG/DL (0.55-1.30) H Estimat Glomerular Filtration Rate 47.3 mL/min (>60) Glucose Level 110 MG/DL (74-106) H Calcium Level 9.4 MG/DL (8.5-10.1) Total Bilirubin 0.2 MG/DL (0.2-1.0) Aspartate Amino Transf (AST/SGOT) 68 U/L (15-37) H Alanine Aminotransferase (ALT/SGPT) 35 U/L (12-78) Alkaline Phosphatase 218 U/L (46-116) H C-Reactive Protein, Quantitative 13.5 mg/dL (0.00-0.90) H Pro-B-Type Natriuretic Peptide 580 pg/mL (0-125) H Total Protein 7.2 G/DL (6.4-8.2) Albumin 1.2 G/DL (3.4-5.0) L Globulin 6.0 g/dL Albumin/Globulin Ratio 0.2 (1.0-2.7) L HIV (1&2) Antibody Rapid Negative (NEGATIVE) Current Medications Medications (Trade) Dose Ordered Sig/Serena Route PRN Reason Start Time Stop Time Status Last Admin Dose Admin Acetaminophen (Tylenol) 650 mg Q4H PRN GT Mild Pain/Temp > 100.5 08/11/17 20:45 09/10/17 20:44 08/15/17 08:45 Amiodarone HCl (Cordarone) 200 mg EVERY 12 HOURS GT 07/31/17 21:00 08/30/17 20:59 08/15/17 20:14 Ceftriaxone Sodium 2 gm/ Sodium Chloride 55 ml @ 110 mls/hr Q24H IVPB 08/15/17 21:00 08/22/17 20:59 08/15/17 20:15 Chlorhexidine Gluconate (Ngoc-Hex 2%) 1 applic DAILY@2000 TOPIC 07/31/17 20:00 08/30/17 19:59 08/15/17 20:13 Colistimethate Sodium (Colistin *inhalation use only*) 150 mg Q12HR@10,22 INH 08/15/17 22:00 08/22/17 21:59 Dextrose (Dextrose 50%) STAT PRN IV Hypoglycemia 07/31/17 17:00 08/30/17 16:59 Heparin Sodium (Porcine) (Heparin 5000 units/ml) 5,000 units EVERY 12 HOURS SUBQ 07/31/17 21:00 08/30/17 20:59 08/16/17 08:38 Heparin Sodium/ Sodium Chloride (Heparin 2000 units/Ns 1000ml premix) 2,000 unit ONCE PRN INJ PICC PLACEMENT 08/03/17 09:00 09/02/17 08:59 Levetiracetam (Keppra) 250 mg BID GT 2/25/18 18:00 08/30/17 17:59 08/16/17 18:03 Micafungin Sodium 100 mg/Sodium Chloride 110 ml @ 110 mls/hr Q24H IVPB 08/12/17 20:00 08/19/17 19:59 08/15/17 20:13 Ondansetron HCl (Zofran) 4 mg Q6H PRN IVP Nausea & Vomiting 07/31/17 17:00 08/30/17 16:59 Pantoprazole (Protonix) 40 mg DAILY IV 08/01/17 09:00 08/31/17 08:59 08/16/17 08:38 Phenytoin (Dilantin) 100 mg Q12HR GT 08/09/17 16:00 09/08/17 15:59 08/15/17 20:14 Polyethylene Glycol (Miralax) 17 gm DAILYPRN PRN ORAL Constipation 07/31/17 17:00 08/30/17 16:59 Sodium Chloride 1,000 ml @ 75 mls/hr [id number] IV 08/07/17 13:15 09/06/17 13:14 08/16/17 13:00 Vancomycin HCl (Vanco rx to dose) 1 ea DAILY PRN MISC Per rx protocol 08/15/17 12:00 09/14/17 11:59 Vancomycin HCl 1 gm/Dextrose 275 ml @ 183.708 mls/hr Q24H IVPB 08/15/17 13:00 08/20/17 12:59 08/16/17 15:08 Francisca Bullock M.D. Aug 16, 2017 18:11
[2017-08-16 20:00] VITALS: BP 104/63
[2017-08-16] MEDS: Dyna-Hex 2% Top Sol 2oz TOPIC SCH (21:09)
[2017-08-16] MEDS: Micafungin 100 MG in NS 110 ML IVPB SCH (21:09)
[2017-08-16] MEDS: cefTRIAXone 2 GM in NS 55 ML IVPB SCH (21:10)
[2017-08-16] MEDS: Colistin for inhalation INH SCH (22:00)
[2017-08-17] VITALS (8 sets, daily range): BP systolic 103–135; BP diastolic 67–83
[2017-08-17 05:57] LABS: HEMATOCRIT 21.2 % (42.0-52.0); MEAN CORPUSCULAR VOLUME 84 FL (80-99); PLATELET COUNT 321 K/UL (150-450); RED BLOOD COUNT 2.52 M/UL (4.70-6.10); RED CELL DISTRIBUTION WIDTH 15.3 % (11.6-14.8); WHITE BLOOD COUNT 13.4 K/UL (4.8-10.8)
[2017-08-17 06:20] LABS: ALANINE AMINOTRANSFERASE 29 U/L (12-78); ALBUMIN 1.1 G/DL (3.4-5.0); ALBUMIN/GLOBULIN RATIO 0.2 (1.0-2.7); ALKALINE PHOSPHATASE 196 U/L (46-116); ANION GAP 9 mmol/L (5-15); ASPARTATE AMINO TRANSFERASE 65 U/L (15-37); BILIRUBIN,TOTAL 0.2 MG/DL (0.2-1.0); BLOOD UREA NITROGEN 26 mg/dL (7-18); CALCIUM 9.3 MG/DL (8.5-10.1); CARBON DIOXIDE 22 MMOL/L (21-32); CHLORIDE 113 MMOL/L (98-107); CREATININE 1.3 MG/DL (0.55-1.30); POTASSIUM 3.8 MMOL/L (3.5-5.1); SODIUM 144 MMOL/L (136-145)
[2017-08-17] MEDS: Colistin for inhalation INH SCH ×2 (07:10→23:07)
[2017-08-17] MEDS: Amiodarone 200mg tab GT SCH ×2 (08:36→21:44)
[2017-08-17] MEDS: Phenytoin Susp 100mg/4ml GT SCH ×2 (08:36→21:44)
[2017-08-17] MEDS: levETIRAcetam 500mg/5ml Liquid GT SCH ×2 (08:36→17:56)
[2017-08-17] MEDS: Pantoprazole Inj IV SCH (08:36)
[2017-08-17] MEDS: Heparin 5000 units/ml inj SUBQ SCH ×2 (08:41→21:54)
--- NOTE | 2017-08-17 10:18 | Diagnostic Imaging Report ---
Indication: Dyspnea Technique: One view of the chest Comparison: 08/16/2017 Findings: Interim reexpansion of the right lung. Considerable airspace disease is seen throughout the right lung. This is slightly more extensive than on the prior chest radiograph of 08/15/2017 taken before the lung collapsed. There is also some infiltrate and atelectasis of the left lung base, slightly increased from previously. Tracheostomy, left arm PICC remain. The heart size is normal. Gastrostomy and left upper quadrant surgical clips are again demonstrated Impression: Interval expansion of the previously atelectatic right lung. Considerable infiltrate versus edema throughout the right lung Increasing left basilar atelectasis and possibly infiltrate Other findings as noted
[2017-08-17] MEDS ORDERED: Tubing IV Secondary IV ONE (10:45)
[2017-08-17] MEDS ORDERED: NS 275ml ONE (10:45)
[2017-08-17] MEDS ORDERED: Sterile Water Irrig 1000ml IRRIG ONE (10:45)
--- NOTE | 2017-08-17 11:24 | Pulmonolgy Critical Care Note ---
Critical Care - Asmt/Plan Problems: (1) Sepsis (2) Chronic respiratory failure (3) UTI (urinary tract infection) (4) Feeding by G-tube (5) Pressure ulcer Respiratory: monitor respiratory rate, adjust FIO2 Cardiac: continue to monitor HR/BP Renal: F/U I&O Infectious Disease: check cultures Gastrointestinal: continue feedings/current rate Endocrine: monitor blood sugar, check HgA1C, continue sliding scale insulin Hematologic: transfuse if hgb<8.5 Neurologic: PRN Ativan, PRN Morphine, keep patient comfortable Affect: PRN ativan Prophylaxis: Heparin Disposition: keep in ICU Notes Reviewed: digital marketing consultant, renal Discussed with: consultants, case finishermail manager - Objective Last 24 Hour Vital Signs Date Time Temp Pulse Resp B/P (MAP) Pulse Ox O2 Delivery O2 Flow Rate FiO2 08/17/17 10:50 96 16 30 08/17/17 08:44 97 16 30 08/17/17 08:18 30 08/17/17 08:00 98.2 100 17 135/83 100 Mechanical Ventilator 30 98.2 08/17/17 08:00 99 08/17/17 06:50 96 16 30 08/17/17 06:50 97 16 99 Mechanical Ventilator 30 08/17/17 06:40 30 08/17/17 06:40 96 16 98 Mechanical Ventilator 30 08/17/17 04:57 99 17 30 08/17/17 04:00 97.8 100 18 122/74 100 Mechanical Ventilator 30 97.8 08/17/17 04:00 98 08/17/17 04:00 30 08/17/17 02:57 108 16 30 08/17/17 00:46 99 20 30 08/17/17 00:00 98 08/17/17 00:00 98.2 98 16 108/67 98 Mechanical Ventilator 30 98.2 08/16/17 22:43 101 17 30 08/16/17 20:29 93 18 30 08/16/17 20:00 98 08/16/17 20:00 30 08/16/17 20:00 98.1 104 18 104/63 100 Mechanical Ventilator 30 98.1 08/16/17 19:03 99 21 30 08/16/17 16:53 100 16 30 08/16/17 16:00 30 08/16/17 16:00 104 08/16/17 16:00 98.7 103 18 93/63 99 Mechanical Ventilator 30 98.7 08/16/17 15:06 107 16 30 08/16/17 13:11 108 21 30 08/16/17 12:00 30 08/16/17 12:00 98.5 105 19 94/64 95 Mechanical Ventilator 30 98.5 08/16/17 11:51 105 Status: obtunded Condition: critical Neck: full ROM Lungs: clear Heart: HR/BP stable, HR/BP unstable, regular Abdomen: non-tender, feeding tube Micro: Microbiology Date/Time Source Procedure Growth Status 08/15/17 13:40 Blood Blood Culture - Preliminary NO GROWTH AFTER 24 HOURS Resulted 08/15/17 13:10 Blood Blood Culture - Preliminary NO GROWTH AFTER 24 HOURS Resulted Accucheck: 131 Critical Care - Subjective ROS Limited/Unobtainable: No Condition: critical EKG Rhythm: Sinus Rhythm FI02: 30 Vent Support Breath Rate: 18 Vent Support Mode: AC Vent Tidal Volume: 550 Sputum Amount: Scant PEEP: 5.0 PIP: 21 Tube Feeding Amount: 55 I&O: Intake and Output 08/16/17 08/17/17 19:00 07:00 Intake Total 1322.416 ml 1378.75 ml Output Total 400 ml 650 ml Balance 922.416 ml 728.75 ml Free Water 60 ml IV Total 1042.416 ml 883.75 ml Tube Feeding 220 ml 495 ml Output Urine Total 400 ml 650 ml # Bowel Movements 1 1 CXR: right lung opened up Labs: Laboratory Tests Test 08/17/17 04:00 White Blood Count 13.4 K/UL (4.8-10.8) H Red Blood Count 2.52 M/UL (4.70-6.10) L Hemoglobin 7.0 G/DL (14.2-18.0) L Hematocrit 21.2 % (42.0-52.0) L Mean Corpuscular Volume 84 FL (80-99) Mean Corpuscular Hemoglobin 27.8 PG (27.0-31.0) Mean Corpuscular Hemoglobin Concent 33.0 G/DL (32.0-36.0) Red Cell Distribution Width 15.3 % (11.6-14.8) H Platelet Count 321 K/UL (150-450) Mean Platelet Volume 6.4 FL (6.5-10.1) L Neutrophils (%) (Auto) % (45.0-75.0) Lymphocytes (%) (Auto) % (20.0-45.0) Monocytes (%) (Auto) % (1.0-10.0) Eosinophils (%) (Auto) % (0.0-3.0) Basophils (%) (Auto) % (0.0-2.0) Differential Total Cells Counted 100 Neutrophils % (Manual) 75 % (45-75) Lymphocytes % (Manual) 17 % (20-45) L Monocytes % (Manual) 6 % (1-10) Eosinophils % (Manual) 2 % (0-3) Basophils % (Manual) 0 % (0-2) Band Neutrophils 0 % (0-8) Platelet Estimate Adequate Platelet Morphology Normal Hypochromasia 1+ Anisocytosis 1+ Sodium Level 144 MMOL/L (136-145) Potassium Level 3.8 MMOL/L (3.5-5.1) Chloride Level 113 MMOL/L (98-107) H Carbon Dioxide Level 22 MMOL/L (21-32) Anion Gap 9 mmol/L (5-15) Blood Urea Nitrogen 26 mg/dL (7-18) H Creatinine 1.3 MG/DL (0.55-1.30) Estimat Glomerular Filtration Rate 55.8 mL/min (>60) Glucose Level 103 MG/DL (74-106) Calcium Level 9.3 MG/DL (8.5-10.1) Total Bilirubin 0.2 MG/DL (0.2-1.0) Aspartate Amino Transf (AST/SGOT) 65 U/L (15-37) H Alanine Aminotransferase (ALT/SGPT) 29 U/L (12-78) Alkaline Phosphatase 196 U/L (46-116) H Pro-B-Type Natriuretic Peptide 744 pg/mL (0-125) H Total Protein 6.9 G/DL (6.4-8.2) Albumin 1.1 G/DL (3.4-5.0) L Globulin 5.8 g/dL Albumin/Globulin Ratio 0.2 (1.0-2.7) L Ernestina James MD Aug 17, 2017 11:24
--- NOTE | 2017-08-17 11:54 | Infectious Diseases Prog Note ---
Assessment/Plan Assessment/Plan ASSESSMENT: The patient is a 62-year-old male with: Fever, improving ongoing- r/o recurrent bacteremia- ? due to mucous plug vs parapneumonic effusion -HIDA scan neg -CXR 08/17: Interval expansion of the previously atelectatic right lung. Considerable infiltrate versus edema throughout the right lung. Increasing left basilar atelectasis and possibly infiltrate -CXR 08/16: Complete opacification right hemithorax. Probably due to atelectasis related to endobronchial occlusion at the level of the right mainstem bronchus. There may also be a significant component of pleural effusion. Complete opacification R lung- , much improved now, possibly due to mucous plug ? ventilatory-associated pneumonia Scx: MDR PSA (S gentamicin, Colistin), repeat sp cx 08/13 normal pipo CCT: Extensive interstitial opacities throughout the right lung as well as groundglass opacities. Large differential, suspect on the basis of pulmonary edema, particularly given evidence of edema elsewhere, but possibility of infection, including possible tuberculosis, should also be considered. Right lower lobe consolidation, may reflect pneumonia (chest x-ray:Considerably worse pleural and parenchymal disease on the right. Slightly worse in pleural and parenchymal disease on the left, over 3 days ) Influenza: Neg -AFB sp cx smear neg x1; 2 pending, MTB PCR pending -fugal serologies pending -HIV ag/ab neg Multiple decubitus of lower extremity. Left heel unstageable decubitus (no purulent discharge.) probable osteo per bone scan -no wound cx obtained NM : flow, blood pool, static activity involving the calcaneal tuberosity on the left. This is worrisome for acute osteomyelitis Sacral Wnd :- no signs of infection -Wnd Cx : MDR Kleb abd MDR ACB (colonizers) ESR: 130 , CRP : 8 Leukocytosis, mild, increasing- ?reactive to mucous plug- monitor -Cdiff neg Elevated LFTs; improving 08/12 CT C/A/P : no abscess. Evidence of anasarca, with generalized edema of the subcutaneous fat,retroperitoneal and mesenteric fat, trace ascites, small left pleural effusion. Possible wall thickening of proximal and mid transverse and ascending colon. Could represent colitis although possibly artifactual due to under distention. Very questionable wall thickening of the duodenum and proximal jejunum, if real could indicate duodenitis/enteritis and/or peptic ulcer disease. Gas bubbles in the anterior aspect of the right rectus abdominis muscle belly. Cholelithiasis. Diffusely somewhat prominent pancreas, probably baseline for this patient, but the possibility of acute pancreatitis should be considered. Scattered punctate microcalcifications may represent sequelae of chronic calcifying pancreatitis, versus arterial calcifications. Ectasia of the pancreatic duct could also indicate chronic calcified pancreatitis no definite pancreatic head mass, although evaluation for such is limited in the absence of IVcontrast US Borderline gallbladder wall thickening, more likely artifact due to underdistention than real. Blood Cx: CoNS probable line infection (PICC from out side facility was removed on and replaced on 08/03 ) Diarrhea CT: ? wall thickening of proximal and mid transverse and ascending colon.duodenum and proximal jejunum, and probable acute pancreatitis should be considered. ? Clostridium difficile: Neg Pl effusion: exudate , Pr : 4.4 , cell count : P ro empyema 08/12 SP ultrasound-guided thoracentesis, of 400 cc BETSY Diabetes. Anemia. GERD. Hypertension. History of TBI. Seizure disorder PLAN: -Continue INH colistin 05/19 for MDR PsA PNA -would not treat MDR ACB as this was obtained from sacral wound and there is not signs of infection sacral wound -For possible acute OM of L heel- will treat empirically, given no obtainable cultures, with IV Vancomycin and Ceftriaxone (abx d#12/) -f/u repeat Bcx 3/ SP Micafungin #5 3/12 SP Meropenem #10 3/11 SP IV Colistin #9 3/4 SP vancomycin d# 9 and Zosyn and Gent d# 4 3/ SP cefepime day # 5 Monitor blood cultures ( repeat Bl) sputum AFB x3 and MTB PCR -per CT suggestion of TB, although low suspicion Pleural fluid wups and Cx : P Monitor chest x-ray f/u fungal serologies Subjective Allergies: Coded Allergies: No Known Allergies (Unverified , 07/31/17) Subjective afebrile in 48hrs, Tm 99.5 WBC increasing CXR with better R lung aeration awaiting AFB sputums Objective Vital Signs Last 24 Hour Vital Signs Date Time Temp Pulse Resp B/P (MAP) Pulse Ox O2 Delivery O2 Flow Rate FiO2 08/17/17 11:41 99.5 97 17 117/69 99 Mechanical Ventilator 30 99.5 08/17/17 10:50 96 16 30 08/17/17 08:44 97 16 30 08/17/17 08:18 30 08/17/17 08:00 98.2 100 17 135/83 100 Mechanical Ventilator 30 98.2 08/17/17 08:00 99 08/17/17 06:50 96 16 30 08/17/17 06:50 97 16 99 Mechanical Ventilator 30 08/17/17 06:40 30 08/17/17 06:40 96 16 98 Mechanical Ventilator 30 08/17/17 04:57 99 17 30 08/17/17 04:00 97.8 100 18 122/74 100 Mechanical Ventilator 30 97.8 08/17/17 04:00 98 08/17/17 04:00 30 08/17/17 02:57 108 16 30 08/17/17 00:46 99 20 30 08/17/17 00:00 98 08/17/17 00:00 98.2 98 16 108/67 98 Mechanical Ventilator 30 98.2 08/16/17 22:43 101 17 30 08/16/17 20:29 93 18 30 08/16/17 20:00 98 08/16/17 20:00 30 08/16/17 20:00 98.1 104 18 104/63 100 Mechanical Ventilator 30 98.1 08/16/17 19:03 99 21 30 08/16/17 16:53 100 16 30 08/16/17 16:00 30 08/16/17 16:00 104 08/16/17 16:00 98.7 103 18 93/63 99 Mechanical Ventilator 30 98.7 08/16/17 15:06 107 16 30 08/16/17 13:11 108 21 30 08/16/17 12:00 30 08/16/17 12:00 98.5 105 19 94/64 95 Mechanical Ventilator 30 98.5 08/16/17 11:51 105 Height (Feet): 6 Height (Inches): 0.00 Weight (Pounds): 143 Objective HEENT: atraumatic Neck: full ROM Heart: HR/BP stable, HR/BP unstable Abdomen: soft, active bowel sounds, feeding tube Extremities: no C/C/E Decubiti: location Microbiology Date/Time Source Procedure Growth Status 08/15/17 13:40 Blood Blood Culture - Preliminary NO GROWTH AFTER 24 HOURS Resulted 08/15/17 13:10 Blood Blood Culture - Preliminary NO GROWTH AFTER 24 HOURS Resulted Laboratory Tests Test 08/17/17 04:00 White Blood Count 13.4 K/UL (4.8-10.8) H Red Blood Count 2.52 M/UL (4.70-6.10) L Hemoglobin 7.0 G/DL (14.2-18.0) L Hematocrit 21.2 % (42.0-52.0) L Mean Corpuscular Volume 84 FL (80-99) Mean Corpuscular Hemoglobin 27.8 PG (27.0-31.0) Mean Corpuscular Hemoglobin Concent 33.0 G/DL (32.0-36.0) Red Cell Distribution Width 15.3 % (11.6-14.8) H Platelet Count 321 K/UL (150-450) Mean Platelet Volume 6.4 FL (6.5-10.1) L Neutrophils (%) (Auto) % (45.0-75.0) Lymphocytes (%) (Auto) % (20.0-45.0) Monocytes (%) (Auto) % (1.0-10.0) Eosinophils (%) (Auto) % (0.0-3.0) Basophils (%) (Auto) % (0.0-2.0) Differential Total Cells Counted 100 Neutrophils % (Manual) 75 % (45-75) Lymphocytes % (Manual) 17 % (20-45) L Monocytes % (Manual) 6 % (1-10) Eosinophils % (Manual) 2 % (0-3) Basophils % (Manual) 0 % (0-2) Band Neutrophils 0 % (0-8) Platelet Estimate Adequate Platelet Morphology Normal Hypochromasia 1+ Anisocytosis 1+ Sodium Level 144 MMOL/L (136-145) Potassium Level 3.8 MMOL/L (3.5-5.1) Chloride Level 113 MMOL/L (98-107) H Carbon Dioxide Level 22 MMOL/L (21-32) Anion Gap 9 mmol/L (5-15) Blood Urea Nitrogen 26 mg/dL (7-18) H Creatinine 1.3 MG/DL (0.55-1.30) Estimat Glomerular Filtration Rate 55.8 mL/min (>60) Glucose Level 103 MG/DL (74-106) Calcium Level 9.3 MG/DL (8.5-10.1) Total Bilirubin 0.2 MG/DL (0.2-1.0) Aspartate Amino Transf (AST/SGOT) 65 U/L (15-37) H Alanine Aminotransferase (ALT/SGPT) 29 U/L (12-78) Alkaline Phosphatase 196 U/L (46-116) H Pro-B-Type Natriuretic Peptide 744 pg/mL (0-125) H Total Protein 6.9 G/DL (6.4-8.2) Albumin 1.1 G/DL (3.4-5.0) L Globulin 5.8 g/dL Albumin/Globulin Ratio 0.2 (1.0-2.7) L Current Medications Medications (Trade) Dose Ordered Sig/Serena Route PRN Reason Start Time Stop Time Status Last Admin Dose Admin Acetaminophen (Tylenol) 650 mg Q4H PRN GT Mild Pain/Temp > 100.5 08/11/17 20:45 09/10/17 20:44 08/15/17 08:45 Amiodarone HCl (Cordarone) 200 mg EVERY 12 HOURS GT 07/31/17 21:00 08/30/17 20:59 08/17/17 08:36 Ceftriaxone Sodium 2 gm/ Sodium Chloride 55 ml @ 110 mls/hr Q24H IVPB 08/15/17 21:00 08/22/17 20:59 08/16/17 21:10 Chlorhexidine Gluconate (Ngoc-Hex 2%) 1 applic DAILY@2000 TOPIC 07/31/17 20:00 08/30/17 19:59 08/16/17 21:09 Colistimethate Sodium (Colistin *inhalation use only*) 150 mg Q12HR@10,22 INH 08/15/17 22:00 08/22/17 21:59 08/17/17 07:10 Dextrose (Dextrose 50%) STAT PRN IV Hypoglycemia 07/31/17 17:00 08/30/17 16:59 Heparin Sodium (Porcine) (Heparin 5000 units/ml) 5,000 units EVERY 12 HOURS SUBQ 07/31/17 21:00 08/30/17 20:59 08/17/17 08:41 Heparin Sodium/ Sodium Chloride (Heparin 2000 units/Ns 1000ml premix) 2,000 unit ONCE PRN INJ PICC PLACEMENT 08/03/17 09:00 09/02/17 08:59 Levetiracetam (Keppra) 250 mg BID GT 07/31/17 18:00 08/30/17 17:59 08/17/17 08:36 Micafungin Sodium 100 mg/Sodium Chloride 110 ml @ 110 mls/hr Q24H IVPB 08/12/17 20:00 08/19/17 19:59 08/16/17 21:09 Ondansetron HCl (Zofran) 4 mg Q6H PRN IVP Nausea & Vomiting 07/31/17 17:00 08/30/17 16:59 Pantoprazole (Protonix) 40 mg DAILY IV 08/01/17 09:00 08/31/17 08:59 08/17/17 08:36 Phenytoin (Dilantin) 100 mg Q12HR GT 08/09/17 16:00 09/08/17 15:59 08/17/17 08:36 Polyethylene Glycol (Miralax) 17 gm DAILYPRN PRN ORAL Constipation 07/31/17 17:00 08/30/17 16:59 Sodium Chloride 1,000 ml @ 75 mls/hr [id number] IV 08/07/17 13:15 09/06/17 13:14 08/17/17 00:25 Vancomycin HCl (Vanco rx to dose) 1 ea DAILY PRN MISC Per rx protocol 08/15/17 12:00 09/14/17 11:59 Vancomycin HCl 1 gm/Dextrose 275 ml @ 183.708 mls/hr Q24H IVPB 08/15/17 13:00 08/20/17 12:59 08/16/17 15:08 Francisca Bullock M.D. Aug 17, 2017 11:54
--- NOTE | 2017-08-17 12:14 | Pulmonolgy Critical Care Note ---
Critical Care - Asmt/Plan Problems: (1) Sepsis (2) Chronic respiratory failure (3) UTI (urinary tract infection) (4) Feeding by G-tube (5) Pressure ulcer Respiratory: monitor respiratory rate, adjust FIO2 Cardiac: continue to monitor HR/BP Infectious Disease: check cultures Gastrointestinal: continue feedings/current rate Endocrine: check HgA1C Neurologic: PRN Ativan Affect: PRN ativan Notes Reviewed: cardio, renal Discussed with: nurses, consultants, shelter case manager, other - family meeting for end of life discussions. Critical Care - Objective Last 24 Hour Vital Signs Date Time Temp Pulse Resp B/P (MAP) Pulse Ox O2 Delivery O2 Flow Rate FiO2 08/17/17 11:41 99.5 97 17 117/69 99 Mechanical Ventilator 30 99.5 08/17/17 10:50 96 16 30 08/17/17 08:44 97 16 30 08/17/17 08:18 30 08/17/17 08:00 98.2 100 17 135/83 100 Mechanical Ventilator 30 98.2 08/17/17 08:00 99 08/17/17 06:50 96 16 30 08/17/17 06:50 97 16 99 Mechanical Ventilator 30 08/17/17 06:40 30 08/17/17 06:40 96 16 98 Mechanical Ventilator 30 08/17/17 04:57 99 17 30 08/17/17 04:00 97.8 100 18 122/74 100 Mechanical Ventilator 30 97.8 08/17/17 04:00 98 08/17/17 04:00 30 08/17/17 02:57 108 16 30 08/17/17 00:46 99 20 30 08/17/17 00:00 98 08/17/17 00:00 98.2 98 16 108/67 98 Mechanical Ventilator 30 98.2 08/16/17 22:43 101 17 30 08/16/17 20:29 93 18 30 08/16/17 20:00 98 08/16/17 20:00 30 08/16/17 20:00 98.1 104 18 104/63 100 Mechanical Ventilator 30 98.1 08/16/17 19:03 99 21 30 08/16/17 16:53 100 16 30 08/16/17 16:00 30 08/16/17 16:00 104 08/16/17 16:00 98.7 103 18 93/63 99 Mechanical Ventilator 30 98.7 3/13/18 15:06 107 16 30 08/16/17 13:11 108 21 30 Status: awake Condition: critical HEENT: atraumatic Lungs: clear Heart: HR/BP stable Abdomen: soft, non-tender, feeding tube Extremities: no C/C/E, edema Micro: Microbiology Date/Time Source Procedure Growth Status 08/15/17 13:40 Blood Blood Culture - Preliminary NO GROWTH AFTER 24 HOURS Resulted 08/15/17 13:10 Blood Blood Culture - Preliminary NO GROWTH AFTER 24 HOURS Resulted Accucheck: 131 Critical Care - Subjective ROS Limited/Unobtainable: No EKG Rhythm: Sinus Rhythm FI02: 30 Vent Support Breath Rate: 18 Vent Support Mode: AC Vent Tidal Volume: 550 Sputum Amount: Scant PEEP: 5.0 PIP: 21 Tube Feeding Amount: 55 I&O: Intake and Output 08/16/17 08/17/17 19:00 07:00 Intake Total 1322.416 ml 1378.75 ml Output Total 400 ml 650 ml Balance 922.416 ml 728.75 ml Free Water 60 ml IV Total 1042.416 ml 883.75 ml Tube Feeding 220 ml 495 ml Output Urine Total 400 ml 650 ml # Bowel Movements 1 1 CXR: left lung opened up Labs: Laboratory Tests Test 08/17/17 04:00 White Blood Count 13.4 K/UL (4.8-10.8) H Red Blood Count 2.52 M/UL (4.70-6.10) L Hemoglobin 7.0 G/DL (14.2-18.0) L Hematocrit 21.2 % (42.0-52.0) L Mean Corpuscular Volume 84 FL (80-99) Mean Corpuscular Hemoglobin 27.8 PG (27.0-31.0) Mean Corpuscular Hemoglobin Concent 33.0 G/DL (32.0-36.0) Red Cell Distribution Width 15.3 % (11.6-14.8) H Platelet Count 321 K/UL (150-450) Mean Platelet Volume 6.4 FL (6.5-10.1) L Neutrophils (%) (Auto) % (45.0-75.0) Lymphocytes (%) (Auto) % (20.0-45.0) Monocytes (%) (Auto) % (1.0-10.0) Eosinophils (%) (Auto) % (0.0-3.0) Basophils (%) (Auto) % (0.0-2.0) Differential Total Cells Counted 100 Neutrophils % (Manual) 75 % (45-75) Lymphocytes % (Manual) 17 % (20-45) L Monocytes % (Manual) 6 % (1-10) Eosinophils % (Manual) 2 % (0-3) Basophils % (Manual) 0 % (0-2) Band Neutrophils 0 % (0-8) Platelet Estimate Adequate Platelet Morphology Normal Hypochromasia 1+ Anisocytosis 1+ Sodium Level 144 MMOL/L (136-145) Potassium Level 3.8 MMOL/L (3.5-5.1) Chloride Level 113 MMOL/L (98-107) H Carbon Dioxide Level 22 MMOL/L (21-32) Anion Gap 9 mmol/L (5-15) Blood Urea Nitrogen 26 mg/dL (7-18) H Creatinine 1.3 MG/DL (0.55-1.30) Estimat Glomerular Filtration Rate 55.8 mL/min (>60) Glucose Level 103 MG/DL (74-106) Calcium Level 9.3 MG/DL (8.5-10.1) Total Bilirubin 0.2 MG/DL (0.2-1.0) Aspartate Amino Transf (AST/SGOT) 65 U/L (15-37) H Alanine Aminotransferase (ALT/SGPT) 29 U/L (12-78) Alkaline Phosphatase 196 U/L (46-116) H Pro-B-Type Natriuretic Peptide 744 pg/mL (0-125) H Total Protein 6.9 G/DL (6.4-8.2) Albumin 1.1 G/DL (3.4-5.0) L Globulin 5.8 g/dL Albumin/Globulin Ratio 0.2 (1.0-2.7) L Ernestina James MD Aug 17, 2017 12:14
[2017-08-17] MEDS: Vancomycin 1gm/D5W 275ml IVPB SCH ×2 (13:50)
[2017-08-17] MEDS: Acetaminophen 650mg/20.3ml GT PRN (16:56)
[2017-08-17] MEDS: Dyna-Hex 2% Top Sol 2oz TOPIC SCH (21:44)
[2017-08-17] MEDS: cefTRIAXone 2 GM in NS 55 ML IVPB SCH (21:45)
[2017-08-18 04:00] VITALS: BP 147/87
[2017-08-18 07:26] LABS: HEMATOCRIT 30.2 % (42.0-52.0); HEMOGLOBIN 10.5 G/DL (14.2-18.0); MEAN CORPUSCULAR VOLUME 85 FL (80-99); PLATELET COUNT 399 K/UL (150-450); RED BLOOD COUNT 3.57 M/UL (4.70-6.10); RED CELL DISTRIBUTION WIDTH 14.9 % (11.6-14.8); WHITE BLOOD COUNT 11.3 K/UL (4.8-10.8)
[2017-08-18 07:37] LABS: ALANINE AMINOTRANSFERASE 30 U/L (12-78); ALBUMIN 1.4 G/DL (3.4-5.0); ALBUMIN/GLOBULIN RATIO 0.2 (1.0-2.7); ALKALINE PHOSPHATASE 229 U/L (46-116); ANION GAP 11 mmol/L (5-15); ASPARTATE AMINO TRANSFERASE 58 U/L (15-37); BILIRUBIN,TOTAL 0.3 MG/DL (0.2-1.0); BLOOD UREA NITROGEN 25 mg/dL (7-18); CALCIUM 9.6 MG/DL (8.5-10.1); CARBON DIOXIDE 21 MMOL/L (21-32); CHLORIDE 111 MMOL/L (98-107); CREATININE 1.2 MG/DL (0.55-1.30); SODIUM 143 MMOL/L (136-145)
[2017-08-18 08:00] VITALS: BP 123/73
[2017-08-18] MEDS: Phenytoin Susp 100mg/4ml GT SCH ×2 (08:30→21:35)
[2017-08-18] MEDS: Pantoprazole Inj IV SCH (08:30)
[2017-08-18] MEDS: Amiodarone 200mg tab GT SCH ×2 (08:30→21:34)
[2017-08-18] MEDS: levETIRAcetam 500mg/5ml Liquid GT SCH ×2 (08:30→17:46)
[2017-08-18] MEDS: Heparin 5000 units/ml inj SUBQ SCH ×2 (08:32→21:36)
[2017-08-18] MEDS: Colistin for inhalation INH SCH (09:31)
[2017-08-18 12:00] VITALS: BP 119/73
--- NOTE | 2017-08-18 12:19 | Pulmonolgy Critical Care Note ---
Critical Care - Asmt/Plan Problems: (1) Sepsis (2) Chronic respiratory failure (3) UTI (urinary tract infection) (4) Feeding by G-tube (5) Pressure ulcer Respiratory: monitor respiratory rate, adjust FIO2, CXR Cardiac: continue to monitor HR/BP Renal: F/U I&O Infectious Disease: check cultures Gastrointestinal: continue feedings/current rate, hold feedings Endocrine: check TSH, continue sliding scale insulin Hematologic: monitor H/H, transfuse if hgb<8.5 Neurologic: PRN Ativan, PRN Morphine, keep patient comfortable Affect: PRN ativan Prophylaxis: Protonix, Heparin Notes Reviewed: big data hadoop developer, renal Discussed with: nurses, consultants, employment case managersap project manager - Objective Last 24 Hour Vital Signs Date Time Temp Pulse Resp B/P (MAP) Pulse Ox O2 Delivery O2 Flow Rate FiO2 08/18/17 10:45 100 18 30 08/18/17 09:41 95 18 100 Mechanical Ventilator 30 08/18/17 09:41 30 08/18/17 09:30 94 18 100 Mechanical Ventilator 30 08/18/17 09:27 94 18 30 08/18/17 08:00 97.7 96 18 123/73 100 Mechanical Ventilator 30 97.7 08/18/17 08:00 30 08/18/17 08:00 95 08/18/17 07:05 97 18 30 08/18/17 05:07 93 20 30 08/18/17 04:00 30 08/18/17 04:00 91 08/18/17 04:00 98.6 98 18 147/87 100 Mechanical Ventilator 30 98.6 08/18/17 02:59 80 18 30 08/18/17 02:58 85 18 Mechanical Ventilator 30 08/18/17 01:16 85 18 30 08/18/17 00:00 30 08/17/17 23:42 90 08/17/17 23:20 97.3 85 18 127/75 100 Mechanical Ventilator 30 97.3 08/17/17 23:18 92 18 100 Mechanical Ventilator 30 08/17/17 23:11 97.7 90 18 103/67 100 Mechanical Ventilator 30 97.7 08/17/17 23:09 30 08/17/17 23:09 90 19 30 08/17/17 23:08 90 19 100 Mechanical Ventilator 30 08/17/17 21:20 100 18 30 08/17/17 20:00 98.7 98 18 119/74 100 Mechanical Ventilator 30 98.7 08/17/17 20:00 100 08/17/17 20:00 30 08/17/17 19:23 99 18 30 08/17/17 17:55 99.5 08/17/17 17:54 99.5 97 99.5 08/17/17 17:29 97 16 30 08/17/17 16:56 100.9 08/17/17 16:00 100.9 99 17 105/68 100 Mechanical Ventilator 30 100.9 08/17/17 16:00 30 08/17/17 15:22 96 16 30 08/17/17 15:22 99 08/17/17 13:25 98 16 30 Status: awake Condition: critical Neck: full ROM Lungs: clear Heart: HR/BP stable Abdomen: soft, active bowel sounds Extremities: no C/C/E, edema Decubiti: location Micro: Microbiology Date/Time Source Procedure Growth Status 08/15/17 13:40 Blood Blood Culture - Preliminary NO GROWTH AFTER 48 HOURS Resulted 08/15/17 13:10 Blood Blood Culture - Preliminary NO GROWTH AFTER 48 HOURS Resulted 08/16/17 02:00 Sputum AFB Specimen Processing Tissue - Final Resulted 08/16/17 02:00 Sputum Acid Fast Bacilli Smear - Final Resulted 08/16/17 02:00 Sputum Acid Fast Bacilli Culture Pending Resulted Accucheck: 131 Critical Care - Subjective ROS Limited/Unobtainable: No Condition: critical EKG Rhythm: Sinus Rhythm FI02: 30 Vent Support Breath Rate: 18 Vent Support Mode: AC Vent Tidal Volume: 550 Sputum Amount: Small PEEP: 5.0 PIP: 25 Tube Feeding Amount: 55 I&O: Intake and Output 08/17/17 08/18/17 19:00 07:00 Intake Total 1942.416 ml 915 ml Output Total 1000 ml 650 ml Balance 942.416 ml 265 ml Free Water 90 ml 90 ml IV Total 1192.416 ml 205 ml Tube Feeding 660 ml 330 ml Blood Product 250 ml Other 40 ml Output Urine Total 1000 ml 650 ml # Bowel Movements 2 CXR: no changes, Trach in place Labs: Laboratory Tests Test 08/18/17 07:00 White Blood Count 11.3 K/UL (4.8-10.8) H Red Blood Count 3.57 M/UL (4.70-6.10) L Hemoglobin 10.5 G/DL (14.2-18.0) #L Hematocrit 30.2 % (42.0-52.0) #L Mean Corpuscular Volume 85 FL (80-99) Mean Corpuscular Hemoglobin 29.3 PG (27.0-31.0) Mean Corpuscular Hemoglobin Concent 34.6 G/DL (32.0-36.0) Red Cell Distribution Width 14.9 % (11.6-14.8) H Platelet Count 399 K/UL (150-450) Mean Platelet Volume 7.1 FL (6.5-10.1) Neutrophils (%) (Auto) % (45.0-75.0) Lymphocytes (%) (Auto) % (20.0-45.0) Monocytes (%) (Auto) % (1.0-10.0) Eosinophils (%) (Auto) % (0.0-3.0) Basophils (%) (Auto) % (0.0-2.0) Differential Total Cells Counted 100 Neutrophils % (Manual) 81 % (45-75) H Lymphocytes % (Manual) 9 % (20-45) L Monocytes % (Manual) 2 % (1-10) Eosinophils % (Manual) 8 % (0-3) H Basophils % (Manual) 0 % (0-2) Band Neutrophils 0 % (0-8) Platelet Estimate Adequate Platelet Morphology Normal Anisocytosis 1+ Sodium Level 143 MMOL/L (136-145) Potassium Level 4.0 MMOL/L (3.5-5.1) Chloride Level 111 MMOL/L (98-107) H Carbon Dioxide Level 21 MMOL/L (21-32) Anion Gap 11 mmol/L (5-15) Blood Urea Nitrogen 25 mg/dL (7-18) H Creatinine 1.2 MG/DL (0.55-1.30) Estimat Glomerular Filtration Rate > 60 mL/min (>60) Glucose Level 104 MG/DL (74-106) Calcium Level 9.6 MG/DL (8.5-10.1) Total Bilirubin 0.3 MG/DL (0.2-1.0) Aspartate Amino Transf (AST/SGOT) 58 U/L (15-37) H Alanine Aminotransferase (ALT/SGPT) 30 U/L (12-78) Alkaline Phosphatase 229 U/L (46-116) H Total Protein 8.0 G/DL (6.4-8.2) Albumin 1.4 G/DL (3.4-5.0) L Globulin 6.6 g/dL Albumin/Globulin Ratio 0.2 (1.0-2.7) L Ernestina James MD Aug 18, 2017 12:19
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
--- NOTE | 2017-08-18 13:37 | Infectious Diseases Prog Note ---
Assessment/Plan Assessment/Plan ASSESSMENT: The patient is a 62-year-old male with: Fever, improving- r/o recurrent bacteremia- ? due to mucous plug vs parapneumonic effusion -HIDA scan neg -CXR 08/17: Interval expansion of the previously atelectatic right lung. Considerable infiltrate versus edema throughout the right lung. Increasing left basilar atelectasis and possibly infiltrate -CXR 08/16: Complete opacification right hemithorax. Probably due to atelectasis related to endobronchial occlusion at the level of the right mainstem bronchus. There may also be a significant component of pleural effusion. -Bcx NTD Complete opacification R lung- , much improved now, possibly due to mucous plug ? ventilatory-associated pneumonia Scx: MDR PSA (S gentamicin, Colistin), repeat sp cx 08/13 normal pipo- Low suspicion overall for TB CCT: Extensive interstitial opacities throughout the right lung as well as groundglass opacities. Large differential, suspect on the basis of pulmonary edema, particularly given evidence of edema elsewhere, but possibility of infection, including possible tuberculosis, should also be considered. Right lower lobe consolidation, may reflect pneumonia (chest x-ray:Considerably worse pleural and parenchymal disease on the right. Slightly worse in pleural and parenchymal disease on the left, over 3 days ) Influenza: Neg -AFB sp cx smear neg x3, cx p, MTB PCR pending -Blatomyces ab neg, CrAg neg -HIV ag/ab neg -TB spot + Multiple decubitus of lower extremity. Left heel unstageable decubitus (no purulent discharge.) probable osteo per bone scan -no wound cx obtained NM : flow, blood pool, static activity involving the calcaneal tuberosity on the left. 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 Evidence of anasarca, with generalized edema of the subcutaneous fat,retroperitoneal and mesenteric fat, trace ascites, small left pleural effusion. Possible wall thickening of proximal and mid transverse and ascending colon. Could represent colitis although possibly artifactual due to under distention. Very questionable wall thickening of the duodenum and proximal jejunum, if real could indicate duodenitis/enteritis and/or peptic ulcer disease. Gas bubbles in the anterior aspect of the right rectus abdominis muscle belly. Cholelithiasis. Diffusely somewhat prominent pancreas, probably baseline for this patient, but the possibility of acute pancreatitis should be considered. Scattered punctate microcalcifications may represent sequelae of chronic calcifying pancreatitis, versus arterial calcifications. Ectasia of the pancreatic duct could also indicate chronic calcified pancreatitis no definite pancreatic head mass, although evaluation for such is limited in the absence of IVcontrast US Borderline gallbladder wall thickening, more likely artifact due to underdistention than real. Blood Cx: CoNS probable line infection (PICC from out side facility was removed on and replaced on 08/03 ) Diarrhea CT: ? wall thickening of proximal and mid transverse and ascending colon.duodenum and proximal jejunum, and probable acute pancreatitis should be considered. ? Clostridium difficile: Neg Pl effusion: exudate , Pr : 4.4 , cell count : P ro empyema 08/12 SP ultrasound-guided thoracentesis, of 400 cc BETSY Diabetes. Anemia. GERD. Hypertension. History of TBI. Seizure disorder PLAN: -Continue INH colistin for MDR PsA PNA -would not treat MDR ACB as this was obtained from sacral wound and there is not signs of infection sacral wound -For possible acute OM of L heel- will treat empirically, given no obtainable cultures, with IV Vancomycin and Ceftriaxone (abx d#13/) -f/u repeat Bcx -f/u MTB PCR- if neg can d/c airborne isolation 3/ SP Micafungin #5 3/12 SP Meropenem #10 3/11 SP IV Colistin #9 3/4 SP vancomycin d# 9 and Zosyn and Gent d# 4 3/1 SP cefepime day # 5 Monitor blood cultures ( repeat Bl) f/u MTB PCR -per CT suggestion of TB, although low suspicion Monitor chest x-ray f/u fungal serologies cocci ab, fungitell Subjective Allergies: Coded Allergies: No Known Allergies (Unverified , 07/31/17) Subjective afebrile in ~24hrs luekocytosis improving AFB smear neg x3, MTB PCR p Objective Vital Signs Last 24 Hour Vital Signs Date Time Temp Pulse Resp B/P (MAP) Pulse Ox O2 Delivery O2 Flow Rate FiO2 08/18/17 12:00 98 08/18/17 12:00 30 08/18/17 12:00 98.1 99 18 119/73 100 Mechanical Ventilator 30 98.1 08/18/17 10:45 100 18 30 08/18/17 09:41 95 18 100 Mechanical Ventilator 30 08/18/17 09:41 30 08/18/17 09:30 94 18 100 Mechanical Ventilator 30 08/18/17 09:27 94 18 30 08/18/17 08:00 97.7 96 18 123/73 100 Mechanical Ventilator 30 97.7 08/18/17 08:00 30 08/18/17 08:00 95 08/18/17 07:05 97 18 30 08/18/17 05:07 93 20 30 08/18/17 04:00 30 08/18/17 04:00 91 08/18/17 04:00 98.6 98 18 147/87 100 Mechanical Ventilator 30 98.6 08/18/17 02:59 80 18 30 08/18/17 02:58 85 18 Mechanical Ventilator 30 08/18/17 01:16 85 18 30 08/18/17 00:00 30 08/17/17 23:42 90 08/17/17 23:20 97.3 85 18 127/75 100 Mechanical Ventilator 30 97.3 08/17/17 23:18 92 18 100 Mechanical Ventilator 30 08/17/17 23:11 97.7 90 18 103/67 100 Mechanical Ventilator 30 97.7 08/17/17 23:09 30 08/17/17 23:09 90 19 30 08/17/17 23:08 90 19 100 Mechanical Ventilator 30 08/17/17 21:20 100 18 30 08/17/17 20:00 98.7 98 18 119/74 100 Mechanical Ventilator 30 98.7 08/17/17 20:00 100 08/17/17 20:00 30 08/17/17 19:23 99 18 30 08/17/17 17:55 99.5 08/17/17 17:54 99.5 97 99.5 08/17/17 17:29 97 16 30 08/17/17 16:56 100.9 08/17/17 16:00 100.9 99 17 105/68 100 Mechanical Ventilator 30 100.9 08/17/17 16:00 30 08/17/17 15:22 96 16 30 08/17/17 15:22 99 Height (Feet): 6 Height (Inches): 0.00 Weight (Pounds): 139 Objective HEENT: atraumatic Neck: full ROM Heart: HR/BP stable, HR/BP unstable Abdomen: soft, active bowel sounds, feeding tube Extremities: no C/C/E Decubiti: location Microbiology Date/Time Source Procedure Growth Status 08/15/17 13:40 Blood Blood Culture - Preliminary NO GROWTH AFTER 48 HOURS Resulted 08/16/17 02:00 Sputum AFB Specimen Processing Tissue - Final Resulted 08/16/17 02:00 Sputum Acid Fast Bacilli Smear - Final Resulted 08/16/17 02:00 Sputum Acid Fast Bacilli Culture Pending Resulted Laboratory Tests Test 08/18/17 07:00 White Blood Count 11.3 K/UL (4.8-10.8) H Red Blood Count 3.57 M/UL (4.70-6.10) L Hemoglobin 10.5 G/DL (14.2-18.0) #L Hematocrit 30.2 % (42.0-52.0) #L Mean Corpuscular Volume 85 FL (80-99) Mean Corpuscular Hemoglobin 29.3 PG (27.0-31.0) Mean Corpuscular Hemoglobin Concent 34.6 G/DL (32.0-36.0) Red Cell Distribution Width 14.9 % (11.6-14.8) H Platelet Count 399 K/UL (150-450) Mean Platelet Volume 7.1 FL (6.5-10.1) Neutrophils (%) (Auto) % (45.0-75.0) Lymphocytes (%) (Auto) % (20.0-45.0) Monocytes (%) (Auto) % (1.0-10.0) Eosinophils (%) (Auto) % (0.0-3.0) Basophils (%) (Auto) % (0.0-2.0) Differential Total Cells Counted 100 Neutrophils % (Manual) 81 % (45-75) H Lymphocytes % (Manual) 9 % (20-45) L Monocytes % (Manual) 2 % (1-10) Eosinophils % (Manual) 8 % (0-3) H Basophils % (Manual) 0 % (0-2) Band Neutrophils 0 % (0-8) Platelet Estimate Adequate Platelet Morphology Normal Anisocytosis 1+ Sodium Level 143 MMOL/L (136-145) Potassium Level 4.0 MMOL/L (3.5-5.1) Chloride Level 111 MMOL/L (98-107) H Carbon Dioxide Level 21 MMOL/L (21-32) Anion Gap 11 mmol/L (5-15) Blood Urea Nitrogen 25 mg/dL (7-18) H Creatinine 1.2 MG/DL (0.55-1.30) Estimat Glomerular Filtration Rate > 60 mL/min (>60) Glucose Level 104 MG/DL (74-106) Calcium Level 9.6 MG/DL (8.5-10.1) Total Bilirubin 0.3 MG/DL (0.2-1.0) Aspartate Amino Transf (AST/SGOT) 58 U/L (15-37) H Alanine Aminotransferase (ALT/SGPT) 30 U/L (12-78) Alkaline Phosphatase 229 U/L (46-116) H Total Protein 8.0 G/DL (6.4-8.2) Albumin 1.4 G/DL (3.4-5.0) L Globulin 6.6 g/dL Albumin/Globulin Ratio 0.2 (1.0-2.7) L Current Medications Medications (Trade) Dose Ordered Sig/Serena Route PRN Reason Start Time Stop Time Status Last Admin Dose Admin Acetaminophen (Tylenol) 650 mg Q4H PRN GT Mild Pain/Temp > 100.5 08/11/17 20:45 09/10/17 20:44 08/17/17 16:56 Amiodarone HCl (Cordarone) 200 mg EVERY 12 HOURS GT 07/31/17 21:00 08/30/17 20:59 08/18/17 08:30 Ceftriaxone Sodium 2 gm/ Sodium Chloride 55 ml @ 110 mls/hr Q24H IVPB 08/15/17 21:00 08/22/17 20:59 08/17/17 21:45 Chlorhexidine Gluconate (Ngoc-Hex 2%) 1 applic DAILY@1999 TOPIC 07/31/17 20:00 08/30/17 19:59 08/17/17 21:44 Colistimethate Sodium (Colistin *inhalation use only*) 150 mg Q12HR@10,22 INH 08/15/17 22:00 08/22/17 21:59 08/18/17 09:31 Dextrose (Dextrose 50%) STAT PRN IV Hypoglycemia 07/31/17 17:00 08/30/17 16:59 Heparin Sodium (Porcine) (Heparin 5000 units/ml) 5,000 units EVERY 12 HOURS SUBQ 07/31/17 21:00 08/30/17 20:59 08/18/17 08:32 Heparin Sodium/ Sodium Chloride (Heparin 2000 units/Ns 1000ml premix) 2,000 unit ONCE PRN INJ PICC PLACEMENT 08/03/17 09:00 09/02/17 08:59 Levetiracetam (Keppra) 250 mg BID GT 07/31/17 18:00 08/30/17 17:59 08/18/17 08:30 Ondansetron HCl (Zofran) 4 mg Q6H PRN IVP Nausea & Vomiting 07/31/17 17:00 08/30/17 16:59 Pantoprazole (Protonix) 40 mg DAILY IV 08/01/17 09:00 08/31/17 08:59 08/18/17 08:30 Phenytoin (Dilantin) 100 mg Q12HR GT 08/09/17 16:00 09/08/17 15:59 08/18/17 08:30 Polyethylene Glycol (Miralax) 17 gm DAILYPRN PRN ORAL Constipation 07/31/17 17:00 08/30/17 16:59 Sodium Chloride 1,000 ml @ 75 mls/hr [id number] IV 08/07/17 13:15 09/06/17 13:14 08/18/17 04:28 Vancomycin HCl (Vanco rx to dose) 1 ea DAILY PRN MISC Per rx protocol 08/15/17 12:00 09/14/17 11:59 Vancomycin/Sodium Chloride 250 ml @ 166.667 mls/hr Q24H IVPB 08/18/17 22:00 08/23/17 21:59 Francisca Bullock M.D. Aug 18, 2017 13:37
[2017-08-18 16:00] VITALS: BP 146/94
[2017-08-18] MEDS: DAPTOmycin 400 MG in NS 55 ML IV SCH (17:45)
[2017-08-18 20:00] VITALS: BP 130/72
[2017-08-18] MEDS: Dyna-Hex 2% Top Sol 2oz TOPIC SCH (20:00)
[2017-08-18] MEDS: cefTRIAXone 2 GM in NS 55 ML IVPB SCH (21:37)
[2017-08-18] MEDS ORDERED: Vancomycin 750mg/NS 250ml 250 ML IVPB SCH (22:00)
[2017-08-19] VITALS: BP 108/66
[2017-08-19] MEDS: Colistin for inhalation INH SCH ×2 (01:07→11:11)
[2017-08-19 04:00] VITALS: BP 127/81
[2017-08-19 06:01] LABS: BASOPHILS % (AUTO) 0.4 % (0.0-2.0); EOSINOPHILS % (AUTO) 0.1 % (0.0-3.0); HEMATOCRIT 26.1 % (42.0-52.0); HEMOGLOBIN 8.9 G/DL (14.2-18.0); LYMPHOCYTES % (AUTO) 10.9 % (20.0-45.0); MEAN CORPUSCULAR VOLUME 84 FL (80-99); MONOCYTES % (AUTO) 5.1 % (1.0-10.0); NEUTROPHILS % (AUTO) 83.5 % (45.0-75.0); PLATELET COUNT 404 K/UL (150-450); RED BLOOD COUNT 3.11 M/UL (4.70-6.10); WHITE BLOOD COUNT 13.8 K/UL (4.8-10.8)
[2017-08-19 06:25] LABS: ALANINE AMINOTRANSFERASE 25 U/L (12-78); ALBUMIN 1.3 G/DL (3.4-5.0); ALBUMIN/GLOBULIN RATIO 0.2 (1.0-2.7); ALKALINE PHOSPHATASE 223 U/L (46-116); ANION GAP 10 mmol/L (5-15); ASPARTATE AMINO TRANSFERASE 44 U/L (15-37); BILIRUBIN,TOTAL 0.2 MG/DL (0.2-1.0); BLOOD UREA NITROGEN 25 mg/dL (7-18); CALCIUM 8.8 MG/DL (8.5-10.1); CARBON DIOXIDE 21 MMOL/L (21-32); CHLORIDE 112 MMOL/L (98-107); CREATININE 1.1 MG/DL (0.55-1.30); POTASSIUM 3.6 MMOL/L (3.5-5.1); SODIUM 143 MMOL/L (136-145)
[2017-08-19 06:33] LABS: CREATINE KINASE 38 U/L (26-308)
[2017-08-19 08:00] VITALS: BP 134/78
[2017-08-19] MEDS: Phenytoin Susp 100mg/4ml GT SCH ×2 (08:30→22:33)
[2017-08-19] MEDS: Amiodarone 200mg tab GT SCH ×2 (08:30→22:33)
[2017-08-19] MEDS: levETIRAcetam 500mg/5ml Liquid GT SCH ×2 (08:30→17:55)
[2017-08-19] MEDS: Pantoprazole Inj IV SCH (08:30)
[2017-08-19] MEDS: Heparin 5000 units/ml inj SUBQ SCH ×2 (08:32→22:34)
[2017-08-19 12:00] VITALS: BP 122/81
--- NOTE | 2017-08-19 12:16 | Pulmonolgy Critical Care Note ---
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 Discussed with: nurses, consultants Critical Care - Objective Last 24 Hour Vital Signs Date Time Temp Pulse Resp B/P (MAP) Pulse Ox O2 Delivery O2 Flow Rate FiO2 08/19/17 11:17 98 18 99 Mechanical Ventilator 08/19/17 11:10 97 18 100 08/19/17 11:10 97 18 99 Mechanical Ventilator 08/19/17 08:44 96 29 100 08/19/17 08:00 100 08/19/17 08:00 99.0 96 22 134/78 94 Mechanical Ventilator 100 99.0 08/19/17 07:54 94 08/19/17 06:31 94 20 100 08/19/17 04:36 104 31 100 08/19/17 04:00 100 08/19/17 04:00 98.1 100 28 127/81 98 Mechanical Ventilator 100 98.1 08/19/17 03:32 99 08/19/17 03:30 106 30 100 08/19/17 01:16 99 29 100 08/19/17 00:00 97.9 94 27 108/66 95 Mechanical Ventilator 100 97.9 08/19/17 00:00 100 08/18/17 23:37 99 08/18/17 23:30 103 31 100 08/18/17 22:00 96 25 97 Mechanical Ventilator 08/18/17 22:00 99 28 100 Mechanical Ventilator 08/18/17 21:01 99 19 100 08/18/17 20:00 100 08/18/17 20:00 97.5 109 28 130/72 98 Mechanical Ventilator 30 97.5 08/18/17 19:30 108 30 30 08/18/17 19:07 93 08/18/17 16:35 97 21 30 08/18/17 16:00 30 08/18/17 16:00 92 08/18/17 16:00 97.7 97 18 146/94 98 Mechanical Ventilator 30 97.7 08/18/17 15:12 92 18 30 08/18/17 12:56 94 18 30 Status: awake Condition: critical Neck: full ROM Lungs: clear Heart: HR/BP stable, regular Abdomen: non-tender, feeding tube Accucheck: 131 Critical Care - Subjective ROS Limited/Unobtainable: No Condition: critical EKG Rhythm: Sinus Rhythm FI02: 100 Vent Support Breath Rate: 18 Vent Support Mode: AC Vent Tidal Volume: 550 Sputum Amount: Small PEEP: 5.0 PIP: 32 Tube Feeding Amount: 55 I&O: Intake and Output 08/18/17 08/19/17 19:00 07:00 Intake Total 1720 ml 1655 ml Output Total 900 ml 950 ml Balance 820 ml 705 ml Free Water 50 ml 100 ml IV Total 925 ml 895 ml Tube Feeding 715 ml 660 ml Other 30 ml Output Urine Total 800 ml 950 ml Stool Total 100 ml # Bowel Movements 30 CXR: no change Labs: Laboratory Tests Test 08/19/17 05:20 White Blood Count 13.8 K/UL (4.8-10.8) H Red Blood Count 3.11 M/UL (4.70-6.10) L Hemoglobin 8.9 G/DL (14.2-18.0) L Hematocrit 26.1 % (42.0-52.0) L Mean Corpuscular Volume 84 FL (80-99) Mean Corpuscular Hemoglobin 28.7 PG (27.0-31.0) Mean Corpuscular Hemoglobin Concent 34.1 G/DL (32.0-36.0) Red Cell Distribution Width 15.0 % (11.6-14.8) H Platelet Count 404 K/UL (150-450) Mean Platelet Volume 7.5 FL (6.5-10.1) Neutrophils (%) (Auto) 83.5 % (45.0-75.0) H Lymphocytes (%) (Auto) 10.9 % (20.0-45.0) L Monocytes (%) (Auto) 5.1 % (1.0-10.0) Eosinophils (%) (Auto) 0.1 % (0.0-3.0) Basophils (%) (Auto) 0.4 % (0.0-2.0) Sodium Level 143 MMOL/L (136-145) Potassium Level 3.6 MMOL/L (3.5-5.1) Chloride Level 112 MMOL/L (98-107) H Carbon Dioxide Level 21 MMOL/L (21-32) Anion Gap 10 mmol/L (5-15) Blood Urea Nitrogen 25 mg/dL (7-18) H Creatinine 1.1 MG/DL (0.55-1.30) Estimat Glomerular Filtration Rate > 60 mL/min (>60) Glucose Level 106 MG/DL (74-106) Calcium Level 8.8 MG/DL (8.5-10.1) Phosphorus Level 4.0 MG/DL (2.5-4.9) Magnesium Level 1.1 MG/DL (1.8-2.4) L Total Bilirubin 0.2 MG/DL (0.2-1.0) Aspartate Amino Transf (AST/SGOT) 44 U/L (15-37) H Alanine Aminotransferase (ALT/SGPT) 25 U/L (12-78) Alkaline Phosphatase 223 U/L (46-116) H Total Creatine Kinase 38 U/L (26-308) Total Protein 7.4 G/DL (6.4-8.2) Albumin 1.3 G/DL (3.4-5.0) L Globulin 6.1 g/dL Albumin/Globulin Ratio 0.2 (1.0-2.7) L Coccidioides Antibody (Comp Fix) Pending Ernestina James MD Aug 19, 2017 12:16
--- NOTE | 2017-08-19 12:54 | Infectious Diseases Prog Note ---
Assessment/Plan Assessment/Plan ASSESSMENT: The patient is a 62-year-old male with: Fever, improving- - ? due to mucous plug vs parapneumonic effusion; also possible due to PICC line infection -HIDA scan neg -CXR 08/17: Interval expansion of the previously atelectatic right lung. Considerable infiltrate versus edema throughout the right lung. Increasing left basilar atelectasis and possibly infiltrate -CXR 08/16: Complete opacification right hemithorax. Probably due to atelectasis related to endobronchial occlusion at the level of the right mainstem bronchus. There may also be a significant component of pleural effusion. -Bcx NTD PICC line infection with CoNS -s/p removal PICC 08/18 -Bcx 08/15 06/07 + PICC line, peripheral NTD; Bcx 08/18 p Complete opacification R lung- , much improved now, possibly due to mucous plug ? ventilatory-associated pneumonia Scx: MDR PSA (S gentamicin, Colistin), repeat sp cx 08/13 normal pipo- Low suspicion overall for TB CCT: Extensive interstitial opacities throughout the right lung as well as groundglass opacities. Large differential, suspect on the basis of pulmonary edema, particularly given evidence of edema elsewhere, but possibility of infection, including possible tuberculosis, should also be considered. Right lower lobe consolidation, may reflect pneumonia (chest x-ray:Considerably worse pleural and parenchymal disease on the right. Slightly worse in pleural and parenchymal disease on the left, over 3 days ) Influenza: Neg -AFB sp cx smear neg x3, cx p, MTB PCR pending -Blatomyces ab neg, CrAg neg, Histoplasma ID neg, CF not done due to anticomplement activity -HIV ag/ab neg -TB spot + (?latent vs active), MTB PCR pending Multiple decubitus of lower extremity. Left heel unstageable decubitus (no purulent discharge.) probable osteo per bone scan -no wound cx obtained NM : flow, blood pool, static activity involving the calcaneal tuberosity on the left. 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 Evidence of anasarca, with generalized edema of the subcutaneous fat,retroperitoneal and mesenteric fat, trace ascites, small left pleural effusion. Possible wall thickening of proximal and mid transverse and ascending colon. Could represent colitis although possibly artifactual due to under distention. Very questionable wall thickening of the duodenum and proximal jejunum, if real could indicate duodenitis/enteritis and/or peptic ulcer disease. Gas bubbles in the anterior aspect of the right rectus abdominis muscle belly. Cholelithiasis. Diffusely somewhat prominent pancreas, probably baseline for this patient, but the possibility of acute pancreatitis should be considered. Scattered punctate microcalcifications may represent sequelae of chronic calcifying pancreatitis, versus arterial calcifications. Ectasia of the pancreatic duct could also indicate chronic calcified pancreatitis no definite pancreatic head mass, although evaluation for such is limited in the absence of IVcontrast US Borderline gallbladder wall thickening, more likely artifact due to underdistention than real. Blood Cx: CoNS probable line infection (PICC from out side facility was removed on and replaced on 08/03 ) Diarrhea CT: ? wall thickening of proximal and mid transverse and ascending colon.duodenum and proximal jejunum, and probable acute pancreatitis should be considered. ? Clostridium difficile: Neg Pl effusion: exudate , Pr : 4.4 , cell count : P ro empyema 08/12 SP ultrasound-guided thoracentesis, of 400 cc BETSY Diabetes. Anemia. GERD. Hypertension. History of TBI. Seizure disorder PLAN: -Continue INH colistin for MDR PsA PNA -For possible acute OM of L heel- will treat empirically, given no obtainable cultures, with IV Daptomycin and Ceftriaxone (abx d#) (Vanco switched to Dapto given CoNS bacteremia on 08/15 from PICC line) -f/u repeat Bcx 08/18 -PICC line can be re-inserted in next 24-48hrs if repeat Bcx NTD -f/u MTB PCR- if neg can d/c airborne isolation 08/18 SP IV Vancomycin #4 313 SP Micafungin #5 3/12 SP Meropenem #10 / /11 SP IV Colistin #9 3/4 SP vancomycin d# 9 and Zosyn and Gent d# 4 3/ SP cefepime day # 5 Monitor blood cultures ( repeat Bl) f/u MTB PCR -per CT suggestion of TB, although low suspicion Monitor chest x-ray f/u cocci ab, fungitell Subjective Allergies: Coded Allergies: No Known Allergies (Unverified , 07/31/17) Subjective afebrile in >24hrs luekocytosis fluctuating b/t 11-13 Bcx from PIC with ConS, picc line removed, PIV placed AFB smear neg x3, MTB PCR p Objective Vital Signs Last 24 Hour Vital Signs Date Time Temp Pulse Resp B/P (MAP) Pulse Ox O2 Delivery O2 Flow Rate FiO2 08/19/17 12:00 100 08/19/17 12:00 99.5 94 22 122/81 100 Mechanical Ventilator 100 99.5 08/19/17 11:17 98 18 99 Mechanical Ventilator 08/19/17 11:10 97 18 100 08/19/17 11:10 97 18 99 Mechanical Ventilator 08/19/17 08:44 96 29 100 08/19/17 08:00 100 08/19/17 08:00 99.0 96 22 134/78 94 Mechanical Ventilator 100 99.0 08/19/17 07:54 94 08/19/17 06:31 94 20 100 08/19/17 04:36 104 31 100 08/19/17 04:00 100 08/19/17 04:00 98.1 100 28 127/81 98 Mechanical Ventilator 100 98.1 08/19/17 03:32 99 08/19/17 03:30 106 30 100 08/19/17 01:16 99 29 100 08/19/17 00:00 97.9 94 27 108/66 95 Mechanical Ventilator 100 97.9 08/19/17 00:00 100 08/18/17 23:37 99 08/18/17 23:30 103 31 100 08/18/17 22:00 96 25 97 Mechanical Ventilator 08/18/17 22:00 99 28 100 Mechanical Ventilator 08/18/17 21:01 99 19 100 08/18/17 20:00 100 08/18/17 20:00 97.5 109 28 130/72 98 Mechanical Ventilator 30 97.5 08/18/17 19:30 108 30 30 08/18/17 19:07 93 08/18/17 16:35 97 21 30 08/18/17 16:00 30 08/18/17 16:00 92 08/18/17 16:00 97.7 97 18 146/94 98 Mechanical Ventilator 30 97.7 08/18/17 15:12 92 18 30 08/18/17 12:56 94 18 30 Height (Feet): 6 Height (Inches): 0.00 Weight (Pounds): 138 Objective HEENT: atraumatic Neck: full ROM Heart: HR/BP stable, HR/BP unstable Abdomen: soft, active bowel sounds, feeding tube Extremities: no C/C/E Decubiti: location Laboratory Tests Test 08/19/17 05:20 White Blood Count 13.8 K/UL (4.8-10.8) H Red Blood Count 3.11 M/UL (4.70-6.10) L Hemoglobin 8.9 G/DL (14.2-18.0) L Hematocrit 26.1 % (42.0-52.0) L Mean Corpuscular Volume 84 FL (80-99) Mean Corpuscular Hemoglobin 28.7 PG (27.0-31.0) Mean Corpuscular Hemoglobin Concent 34.1 G/DL (32.0-36.0) Red Cell Distribution Width 15.0 % (11.6-14.8) H Platelet Count 404 K/UL (150-450) Mean Platelet Volume 7.5 FL (6.5-10.1) Neutrophils (%) (Auto) 83.5 % (45.0-75.0) H Lymphocytes (%) (Auto) 10.9 % (20.0-45.0) L Monocytes (%) (Auto) 5.1 % (1.0-10.0) Eosinophils (%) (Auto) 0.1 % (0.0-3.0) Basophils (%) (Auto) 0.4 % (0.0-2.0) Sodium Level 143 MMOL/L (136-145) Potassium Level 3.6 MMOL/L (3.5-5.1) Chloride Level 112 MMOL/L (98-107) H Carbon Dioxide Level 21 MMOL/L (21-32) Anion Gap 10 mmol/L (5-15) Blood Urea Nitrogen 25 mg/dL (7-18) H Creatinine 1.1 MG/DL (0.55-1.30) Estimat Glomerular Filtration Rate > 60 mL/min (>60) Glucose Level 106 MG/DL (74-106) Calcium Level 8.8 MG/DL (8.5-10.1) Phosphorus Level 4.0 MG/DL (2.5-4.9) Magnesium Level 1.1 MG/DL (1.8-2.4) L Total Bilirubin 0.2 MG/DL (0.2-1.0) Aspartate Amino Transf (AST/SGOT) 44 U/L (15-37) H Alanine Aminotransferase (ALT/SGPT) 25 U/L (12-78) Alkaline Phosphatase 223 U/L (46-116) H Total Creatine Kinase 38 U/L (26-308) Total Protein 7.4 G/DL (6.4-8.2) Albumin 1.3 G/DL (3.4-5.0) L Globulin 6.1 g/dL Albumin/Globulin Ratio 0.2 (1.0-2.7) L Coccidioides Antibody (Comp Fix) Pending Current Medications Medications (Trade) Dose Ordered Sig/Serena Route PRN Reason Start Time Stop Time Status Last Admin Dose Admin Acetaminophen (Tylenol) 650 mg Q4H PRN GT Mild Pain/Temp > 100.5 08/11/17 20:45 09/10/17 20:44 08/17/17 16:56 Amiodarone HCl (Cordarone) 200 mg EVERY 12 HOURS GT 07/31/17 21:00 08/30/17 20:59 08/19/17 08:30 Ceftriaxone Sodium 2 gm/ Sodium Chloride 55 ml @ 110 mls/hr Q24H IVPB 08/15/17 21:00 08/22/17 20:59 08/18/17 21:37 Colistimethate Sodium (Colistin *inhalation use only*) 150 mg Q12HR@10,22 INH 08/15/17 22:00 08/22/17 21:59 08/19/17 11:11 Daptomycin 400 mg/ Sodium Chloride 55 ml @ 100 mls/hr Q24H IV 08/18/17 17:00 08/25/17 16:59 08/18/17 17:45 Dextrose (Dextrose 50%) STAT PRN IV Hypoglycemia 07/31/17 17:00 08/30/17 16:59 Heparin Sodium (Porcine) (Heparin 5000 units/ml) 5,000 units EVERY 12 HOURS SUBQ 07/31/17 21:00 08/30/17 20:59 08/19/17 08:32 Heparin Sodium/ Sodium Chloride (Heparin 2000 units/Ns 1000ml premix) 2,000 unit ONCE PRN INJ PICC PLACEMENT 08/03/17 09:00 09/02/17 08:59 Levetiracetam (Keppra) 250 mg BID GT 07/31/17 18:00 08/30/17 17:59 08/19/17 08:30 Ondansetron HCl (Zofran) 4 mg Q6H PRN IVP Nausea & Vomiting 07/31/17 17:00 08/30/17 16:59 Pantoprazole (Protonix) 40 mg DAILY IV 08/01/17 09:00 08/31/17 08:59 08/19/17 08:30 Phenytoin (Dilantin) 100 mg Q12HR GT 08/09/17 16:00 09/08/17 15:59 08/19/17 08:30 Polyethylene Glycol (Miralax) 17 gm DAILYPRN PRN ORAL Constipation 07/31/17 17:00 08/30/17 16:59 Sodium Chloride 1,000 ml @ 75 mls/hr [id number] IV 08/07/17 13:15 09/06/17 13:14 08/19/17 05:48 Francisca Bullock M.D. Aug 19, 2017 12:53
[2017-08-19 16:00] VITALS: BP 124/70
[2017-08-19] MEDS: DAPTOmycin 400 MG in NS 55 ML IV SCH (17:36)
[2017-08-19 20:00] VITALS: BP 122/73
[2017-08-19] MEDS: cefTRIAXone 2 GM in NS 55 ML IVPB SCH (22:33)
[2017-08-19] MEDS ORDERED: Tubing IV Secondary IV ONE (22:43)
[2017-08-19] MEDS ORDERED: NS 275ml ONE (22:43)
[2017-08-19] MEDS ORDERED: Tubing Blood Filter IV ONE (22:43)
[2017-08-19] MEDS ORDERED: 1/2 NS 1000ml IV ONE (22:43)
[2017-08-19] MEDS: Acetaminophen 650mg/20.3ml GT PRN (22:49)
[2017-08-20] VITALS: BP 128/78
[2017-08-20 04:00] VITALS: BP 130/75
[2017-08-20 06:16] LABS: HEMATOCRIT 26.3 % (42.0-52.0); HEMOGLOBIN 8.8 G/DL (14.2-18.0); MEAN CORPUSCULAR VOLUME 86 FL (80-99); PLATELET COUNT 375 K/UL (150-450); RED BLOOD COUNT 3.06 M/UL (4.70-6.10); RED CELL DISTRIBUTION WIDTH 15.6 % (11.6-14.8); WHITE BLOOD COUNT 12.4 K/UL (4.8-10.8)
[2017-08-20 06:28] LABS: ALANINE AMINOTRANSFERASE 19 U/L (12-78); ALBUMIN 1.3 G/DL (3.4-5.0); ALBUMIN/GLOBULIN RATIO 0.2 (1.0-2.7); ALKALINE PHOSPHATASE 217 U/L (46-116); ANION GAP 8 mmol/L (5-15); ASPARTATE AMINO TRANSFERASE 38 U/L (15-37); BILIRUBIN,TOTAL 0.2 MG/DL (0.2-1.0); BLOOD UREA NITROGEN 26 mg/dL (7-18); CALCIUM 8.6 MG/DL (8.5-10.1); CARBON DIOXIDE 23 MMOL/L (21-32); CHLORIDE 116 MMOL/L (98-107); CREATININE 1.1 MG/DL (0.55-1.30); PHOSPHORUS 3.7 MG/DL (2.5-4.9); SODIUM 147 MMOL/L (136-145)
[2017-08-20 08:00] VITALS: BP 151/86
[2017-08-20] MEDS: Pantoprazole Inj IV SCH (09:21)
[2017-08-20] MEDS: Phenytoin Susp 100mg/4ml GT SCH ×2 (09:23→20:26)
[2017-08-20] MEDS: Amiodarone 200mg tab GT SCH ×2 (09:23→20:26)
[2017-08-20] MEDS: levETIRAcetam 500mg/5ml Liquid GT SCH ×2 (09:23→17:40)
[2017-08-20] MEDS: Heparin 5000 units/ml inj SUBQ SCH ×2 (09:24→20:29)
[2017-08-20 12:00] VITALS: BP 126/70
--- NOTE | 2017-08-20 12:04 | Infectious Diseases Prog Note ---
Assessment/Plan Assessment/Plan ASSESSMENT: The patient is a 62-year-old male with: Fever, improving- - ? due to mucous plug vs parapneumonic effusion; also possible due to PICC line infection -HIDA scan neg -CXR 08/17: Interval expansion of the previously atelectatic right lung. Considerable infiltrate versus edema throughout the right lung. Increasing left basilar atelectasis and possibly infiltrate -CXR 08/16: Complete opacification right hemithorax. Probably due to atelectasis related to endobronchial occlusion at the level of the right mainstem bronchus. There may also be a significant component of pleural effusion. -Bcx NTD PICC line infection with CoNS, Ro SBE ( persistent bacteremia ) -s/p removal PICC 08/18 -Bcx 08/15 06/07 + PICC line, peripheral NTD; Bcx 08/18 : GPC Blood Cx: CoNS probable line infection (PICC from out side facility was removed on and replaced on 08/03 ) Complete opacification R lung- , much improved now, possibly due to mucous plug ? ventilatory-associated pneumonia Scx: MDR PSA (S gentamicin, Colistin), repeat sp cx 08/13 normal pipo- Low suspicion overall for TB CCT: Extensive interstitial opacities throughout the right lung as well as groundglass opacities. Large differential, suspect on the basis of pulmonary edema, particularly given evidence of edema elsewhere, but possibility of infection, including possible tuberculosis, should also be considered. Right lower lobe consolidation, may reflect pneumonia (chest x-ray:Considerably worse pleural and parenchymal disease on the right. Slightly worse in pleural and parenchymal disease on the left, over 3 days ) Influenza: Neg -AFB sp cx smear neg x3, cx p, MTB PCR pending -Blatomyces ab neg, CrAg neg, Histoplasma ID neg, CF not done due to anticomplement activity -HIV ag/ab neg -TB spot + (?latent vs active), MTB PCR pending Multiple decubitus of lower extremity. Left heel unstageable decubitus (no purulent discharge.) probable osteo per bone scan -no wound cx obtained NM : flow, blood pool, static activity involving the calcaneal tuberosity on the left. This is worrisome for acute osteomyelitis Sacral Wnd :- no signs of infection -Wnd Cx : MDR Kleb abd MDR ACB (colonizers) ESR: 130 , CRP : 8 Leukocytosis, mild, -Cdiff neg Elevated LFTs; improving 08/12 CT C/A/P : no abscess. Evidence of anasarca, with generalized edema of the subcutaneous fat,retroperitoneal and mesenteric fat, trace ascites, small left pleural effusion. Possible wall thickening of proximal and mid transverse and ascending colon. Could represent colitis although possibly artifactual due to under distention. Very questionable wall thickening of the duodenum and proximal jejunum, if real could indicate duodenitis/enteritis and/or peptic ulcer disease. Gas bubbles in the anterior aspect of the right rectus abdominis muscle belly. Cholelithiasis. Diffusely somewhat prominent pancreas, probably baseline for this patient, but the possibility of acute pancreatitis should be considered. Scattered punctate microcalcifications may represent sequelae of chronic calcifying pancreatitis, versus arterial calcifications. Ectasia of the pancreatic duct could also indicate chronic calcified pancreatitis no definite pancreatic head mass, although evaluation for such is limited in the absence of IVcontrast US Borderline gallbladder wall thickening, more likely artifact due to underdistention than real. Diarrhea CT: ? wall thickening of proximal and mid transverse and ascending colon.duodenum and proximal jejunum, and probable acute pancreatitis should be considered. ? Clostridium difficile: Neg Pl effusion: exudate , Pr : 4.4 , cell count : P ro empyema 08/12 SP ultrasound-guided thoracentesis, of 400 cc BETSY Diabetes. Anemia. GERD. Hypertension. History of TBI. Seizure disorder PLAN: -For possible acute OM of L heel- will treat empirically, given no obtainable cultures, with IV Daptomycin and Ceftriaxone ,add Flagyl (additional anaerobic coverage of osteo ) (abx d#) (Vanco switched to Dapto given CoNS bacteremia on 08/15 from PICC line) 08/19 SP INH colistin / for MDR PsA PNA 08/18 SP IV Vancomycin #4 3/13 SP Micafungin #5 3/12 SP Meropenem #10 / 3/11 SP IV Colistin #9 3/4 SP vancomycin d# 9 and Zosyn and Gent d# 4 3/1 SP cefepime day # 5 Monitor blood cultures ( repeat Bl) f/u MTB PCR ( per CT suggestion of TB, although low suspicion ) Monitor chest x-ray f/u cocci ab, fungitell -f/u repeat Bcx in AM - 2D Echo ro SBE -PICC line if repeat Bcx NTD -f/u MTB PCR- if neg can d/c airborne isolation Subjective Allergies: Coded Allergies: No Known Allergies (Unverified , 07/31/17) Subjective febrile last night Objective Vital Signs Last 24 Hour Vital Signs Date Time Temp Pulse Resp B/P (MAP) Pulse Ox O2 Delivery O2 Flow Rate FiO2 08/20/17 10:30 86 19 70 08/20/17 08:40 80 17 80 08/20/17 08:00 98.3 90 20 151/86 98 Mechanical Ventilator 100 98.3 08/20/17 08:00 100 08/20/17 08:00 91 08/20/17 07:29 86 20 100 08/20/17 05:42 84 19 100 08/20/17 04:00 100 08/20/17 04:00 97.7 94 19 130/75 100 Mechanical Ventilator 100 97.7 08/20/17 03:33 92 08/20/17 03:24 93 21 100 08/20/17 01:19 98 21 100 08/20/17 00:33 97.9 08/20/17 00:00 97.9 102 21 128/78 100 Mechanical Ventilator 100 97.9 08/19/17 23:37 102 08/19/17 22:53 97 20 100 08/19/17 22:49 100.6 08/19/17 20:55 96 20 100 08/19/17 20:00 100.6 99 20 122/73 100 Mechanical Ventilator 100 100.6 08/19/17 20:00 100 08/19/17 20:00 94 08/19/17 19:06 93 20 100 08/19/17 17:04 93 20 100 08/19/17 16:00 99.3 92 20 124/70 100 Mechanical Ventilator 100 99.3 08/19/17 16:00 100 08/19/17 15:35 93 08/19/17 14:56 92 20 100 08/19/17 13:05 98 18 100 08/19/17 12:41 94 08/19/17 12:00 100 08/19/17 12:00 99.5 94 22 122/81 100 Mechanical Ventilator 100 99.5 Height (Feet): 6 Height (Inches): 0.00 Weight (Pounds): 144 HEENT: anicteric Respiratory/Chest: normal breath sounds Cardiovascular: normal rate Abdomen: non distended Microbiology Date/Time Source Procedure Growth Status 08/18/17 17:25 Blood Blood Culture - Preliminary Gram Positive Cocci Resulted 08/19/17 05:00 Stool Stool Culture - Preliminary NORMAL FECAL PIPO. Resulted 08/18/17 17:00 Arm Left Catheter Tip Culture - Preliminary Gram Positive Cocci Resulted Laboratory Tests Test 08/20/17 05:50 White Blood Count 12.4 K/UL (4.8-10.8) H Red Blood Count 3.06 M/UL (4.70-6.10) L Hemoglobin 8.8 G/DL (14.2-18.0) L Hematocrit 26.3 % (42.0-52.0) L Mean Corpuscular Volume 86 FL (80-99) Mean Corpuscular Hemoglobin 28.7 PG (27.0-31.0) Mean Corpuscular Hemoglobin Concent 33.5 G/DL (32.0-36.0) Red Cell Distribution Width 15.6 % (11.6-14.8) H Platelet Count 375 K/UL (150-450) Mean Platelet Volume 7.2 FL (6.5-10.1) Neutrophils (%) (Auto) % (45.0-75.0) Lymphocytes (%) (Auto) % (20.0-45.0) Monocytes (%) (Auto) % (1.0-10.0) Eosinophils (%) (Auto) % (0.0-3.0) Basophils (%) (Auto) % (0.0-2.0) Differential Total Cells Counted 100 Neutrophils % (Manual) 66 % (45-75) Lymphocytes % (Manual) 17 % (20-45) L Monocytes % (Manual) 7 % (1-10) Eosinophils % (Manual) 10 % (0-3) H Basophils % (Manual) 0 % (0-2) Band Neutrophils 0 % (0-8) Platelet Estimate Adequate Platelet Morphology Normal Hypochromasia 1+ Anisocytosis 1+ Sodium Level 147 MMOL/L (136-145) H Potassium Level 4.0 MMOL/L (3.5-5.1) Chloride Level 116 MMOL/L (98-107) H Carbon Dioxide Level 23 MMOL/L (21-32) Anion Gap 8 mmol/L (5-15) Blood Urea Nitrogen 26 mg/dL (7-18) H Creatinine 1.1 MG/DL (0.55-1.30) Estimat Glomerular Filtration Rate > 60 mL/min (>60) Glucose Level 110 MG/DL (74-106) H Calcium Level 8.6 MG/DL (8.5-10.1) Phosphorus Level 3.7 MG/DL (2.5-4.9) Magnesium Level 1.3 MG/DL (1.8-2.4) L Total Bilirubin 0.2 MG/DL (0.2-1.0) Aspartate Amino Transf (AST/SGOT) 38 U/L (15-37) H Alanine Aminotransferase (ALT/SGPT) 19 U/L (12-78) Alkaline Phosphatase 217 U/L (46-116) H Total Protein 7.0 G/DL (6.4-8.2) Albumin 1.3 G/DL (3.4-5.0) L Globulin 5.7 g/dL Albumin/Globulin Ratio 0.2 (1.0-2.7) L Current Medications Medications (Trade) Dose Ordered Sig/Serena Route PRN Reason Start Time Stop Time Status Last Admin Dose Admin Acetaminophen (Tylenol) 650 mg Q4H PRN GT Mild Pain/Temp > 100.5 08/11/17 20:45 09/10/17 20:44 08/19/17 22:49 Amiodarone HCl (Cordarone) 200 mg EVERY 12 HOURS GT 07/31/17 21:00 08/30/17 20:59 08/20/17 09:23 Ceftriaxone Sodium 2 gm/ Sodium Chloride 55 ml @ 110 mls/hr Q24H IVPB 08/15/17 21:00 08/22/17 20:59 08/19/17 22:33 Daptomycin 400 mg/ Sodium Chloride 55 ml @ 100 mls/hr Q24H IV 08/18/17 17:00 08/25/17 16:59 08/19/17 17:36 Dextrose (Dextrose 50%) STAT PRN IV Hypoglycemia 07/31/17 17:00 08/30/17 16:59 Heparin Sodium (Porcine) (Heparin 5000 units/ml) 5,000 units EVERY 12 HOURS SUBQ 07/31/17 21:00 08/30/17 20:59 3/17/18 09:24 Heparin Sodium/ Sodium Chloride (Heparin 2000 units/Ns 1000ml premix) 2,000 unit ONCE PRN INJ PICC PLACEMENT 08/03/17 09:00 09/02/17 08:59 Levetiracetam (Keppra) 250 mg BID GT 07/31/17 18:00 08/30/17 17:59 08/20/17 09:23 Ondansetron HCl (Zofran) 4 mg Q6H PRN IVP Nausea & Vomiting 07/31/17 17:00 08/30/17 16:59 Pantoprazole (Protonix) 40 mg DAILY IV 08/01/17 09:00 08/31/17 08:59 08/20/17 09:21 Phenytoin (Dilantin) 100 mg Q12HR GT 08/09/17 16:00 09/08/17 15:59 08/20/17 09:23 Polyethylene Glycol (Miralax) 17 gm DAILYPRN PRN ORAL Constipation 07/31/17 17:00 08/30/17 16:59 Sodium Chloride 1,000 ml @ 75 mls/hr [id number] IV 08/07/17 13:15 09/06/17 13:14 08/20/17 09:24 KRYSTIN JAQUEZ M.D. Aug 20, 2017 12:04
[2017-08-20] MEDS: metroNIDAZOLE 500mg tab ORAL SCH ×2 (13:45→22:36)
--- NOTE | 2017-08-20 14:02 | Pulmonolgy Critical Care Note ---
Critical Care - Asmt/Plan Problems: (1) Sepsis (2) Chronic respiratory failure (3) UTI (urinary tract infection) (4) Feeding by G-tube (5) Pressure ulcer Respiratory: monitor respiratory rate, adjust FIO2, CXR Cardiac: continue to monitor HR/BP Renal: F/U I&O, keep IV fluid Infectious Disease: check cultures Gastrointestinal: continue feedings/current rate Endocrine: monitor blood sugar, check HgA1C, continue sliding scale insulin Hematologic: transfuse if hgb<8.5 Neurologic: PRN Ativan, PRN Morphine Prophylaxis: Protonix Disposition: keep in ICU Time Spent (Minutes): 40 Notes Reviewed: renal Discussed with: nurses, consultants, catalytic case operatortax compliance manager - Objective Last 24 Hour Vital Signs Date Time Temp Pulse Resp B/P (MAP) Pulse Ox O2 Delivery O2 Flow Rate FiO2 08/20/17 12:55 92 18 60 08/20/17 12:00 70 08/20/17 12:00 98.8 92 22 126/70 100 Mechanical Ventilator 70 98.8 08/20/17 11:48 90 08/20/17 10:30 86 19 70 08/20/17 08:40 80 17 80 08/20/17 08:00 98.3 90 20 151/86 98 Mechanical Ventilator 100 98.3 08/20/17 08:00 100 08/20/17 08:00 91 08/20/17 07:29 86 20 100 08/20/17 05:42 84 19 100 08/20/17 04:00 100 08/20/17 04:00 97.7 94 19 130/75 100 Mechanical Ventilator 100 97.7 08/20/17 03:33 92 08/20/17 03:24 93 21 100 08/20/17 01:19 98 21 100 08/20/17 00:33 97.9 08/20/17 00:00 97.9 102 21 128/78 100 Mechanical Ventilator 100 97.9 08/19/17 23:37 102 08/19/17 22:53 97 20 100 08/19/17 22:49 100.6 08/19/17 20:55 96 20 100 08/19/17 20:00 100.6 99 20 122/73 100 Mechanical Ventilator 100 100.6 08/19/17 20:00 100 08/19/17 20:00 94 3/16/18 19:06 93 20 100 08/19/17 17:04 93 20 100 08/19/17 16:00 99.3 92 20 124/70 100 Mechanical Ventilator 100 99.3 08/19/17 16:00 100 08/19/17 15:35 93 08/19/17 14:56 92 20 100 Status: awake Condition: critical Neck: full ROM Lungs: chest wall tender Heart: HR/BP stable, HR/BP unstable Abdomen: soft, non-tender, feeding tube Extremities: edema Decubiti: location Micro: Microbiology Date/Time Source Procedure Growth Status 08/18/17 17:25 Blood Blood Culture - Preliminary Gram Positive Cocci Resulted 08/18/17 17:10 Blood Blood Culture - Preliminary NO GROWTH AFTER 24 HOURS Resulted 08/19/17 05:00 Stool Stool Culture - Preliminary NORMAL FECAL JOY. Resulted 08/18/17 17:00 Arm Left Catheter Tip Culture - Preliminary Gram Positive Cocci Resulted Accucheck: 131 Critical Care - Subjective ROS Limited/Unobtainable: No Condition: critical FI02: 60 Vent Support Breath Rate: 18 Vent Support Mode: AC Vent Tidal Volume: 550 Sputum Amount: Small PEEP: 5.0 PIP: 32 Tube Feeding Amount: 55 I&O: Intake and Output 08/19/17 08/20/17 19:00 07:00 Intake Total 1720 ml 1695 ml Output Total 750 ml 400 ml Balance 970 ml 1295 ml Free Water 80 ml 30 ml IV Total 900 ml 955 ml Tube Feeding 660 ml 660 ml Other 80 ml 50 ml Output Urine Total 700 ml 400 ml Stool Total 50 ml Labs: Laboratory Tests Test 08/20/17 05:50 White Blood Count 12.4 K/UL (4.8-10.8) H Red Blood Count 3.06 M/UL (4.70-6.10) L Hemoglobin 8.8 G/DL (14.2-18.0) L Hematocrit 26.3 % (42.0-52.0) L Mean Corpuscular Volume 86 FL (80-99) Mean Corpuscular Hemoglobin 28.7 PG (27.0-31.0) Mean Corpuscular Hemoglobin Concent 33.5 G/DL (32.0-36.0) Red Cell Distribution Width 15.6 % (11.6-14.8) H Platelet Count 375 K/UL (150-450) Mean Platelet Volume 7.2 FL (6.5-10.1) Neutrophils (%) (Auto) % (45.0-75.0) Lymphocytes (%) (Auto) % (20.0-45.0) Monocytes (%) (Auto) % (1.0-10.0) Eosinophils (%) (Auto) % (0.0-3.0) Basophils (%) (Auto) % (0.0-2.0) Differential Total Cells Counted 100 Neutrophils % (Manual) 66 % (45-75) Lymphocytes % (Manual) 17 % (20-45) L Monocytes % (Manual) 7 % (1-10) Eosinophils % (Manual) 10 % (0-3) H Basophils % (Manual) 0 % (0-2) Band Neutrophils 0 % (0-8) Platelet Estimate Adequate Platelet Morphology Normal Hypochromasia 1+ Anisocytosis 1+ Sodium Level 147 MMOL/L (136-145) H Potassium Level 4.0 MMOL/L (3.5-5.1) Chloride Level 116 MMOL/L (98-107) H Carbon Dioxide Level 23 MMOL/L (21-32) Anion Gap 8 mmol/L (5-15) Blood Urea Nitrogen 26 mg/dL (7-18) H Creatinine 1.1 MG/DL (0.55-1.30) Estimat Glomerular Filtration Rate > 60 mL/min (>60) Glucose Level 110 MG/DL (74-106) H Calcium Level 8.6 MG/DL (8.5-10.1) Phosphorus Level 3.7 MG/DL (2.5-4.9) Magnesium Level 1.3 MG/DL (1.8-2.4) L Total Bilirubin 0.2 MG/DL (0.2-1.0) Aspartate Amino Transf (AST/SGOT) 38 U/L (15-37) H Alanine Aminotransferase (ALT/SGPT) 19 U/L (12-78) Alkaline Phosphatase 217 U/L (46-116) H Total Protein 7.0 G/DL (6.4-8.2) Albumin 1.3 G/DL (3.4-5.0) L Globulin 5.7 g/dL Albumin/Globulin Ratio 0.2 (1.0-2.7) L Ernestina James MD Aug 20, 2017 14:02
[2017-08-20 16:00] VITALS: BP 94/47
[2017-08-20] MEDS: DAPTOmycin 400 MG in NS 55 ML IV SCH (17:40)
[2017-08-20 20:00] VITALS: BP 129/68
[2017-08-20] MEDS: Acetaminophen 650mg/20.3ml GT PRN (20:27)
[2017-08-20] MEDS: cefTRIAXone 2 GM in NS 55 ML IVPB SCH (22:36)
[2017-08-21] VITALS: BP 103/59
[2017-08-21 04:00] VITALS: BP 138/78
[2017-08-21] MEDS: metroNIDAZOLE 500mg tab ORAL SCH ×3 (06:48→21:58)
[2017-08-21 08:00] VITALS: BP 119/63
[2017-08-21] MEDS: Phenytoin Susp 100mg/4ml GT SCH ×2 (09:44→20:55)
[2017-08-21] MEDS: Pantoprazole Inj IV SCH (09:45)
[2017-08-21] MEDS: levETIRAcetam 500mg/5ml Liquid GT SCH ×2 (09:45→17:54)
[2017-08-21] MEDS: Amiodarone 200mg tab GT SCH ×2 (09:46→20:55)
[2017-08-21] MEDS: Heparin 5000 units/ml inj SUBQ SCH ×2 (09:46→20:57)
--- NOTE | 2017-08-21 11:47 | Pulmonolgy Critical Care Note ---
Critical Care - Asmt/Plan Problems: (1) Sepsis (2) Chronic respiratory failure (3) UTI (urinary tract infection) (4) Feeding by G-tube (5) Pressure ulcer Respiratory: monitor respiratory rate, adjust FIO2 Cardiac: start pressors, continue to monitor HR/BP Renal: F/U I&O, keep IV fluid, check electrolytes Infectious Disease: check cultures Gastrointestinal: continue feedings/current rate Endocrine: monitor blood sugar, check HgA1C, continue sliding scale insulin Hematologic: monitor H/H, transfuse if hgb<8.5 Neurologic: PRN Ativan, PRN Morphine, keep patient comfortable Prophylaxis: Protonix, Heparin Notes Reviewed: central office equipment installer, cardio Discussed with: nurses, consultants, protective services case workercustomer logistics manager - Objective Last 24 Hour Vital Signs Date Time Temp Pulse Resp B/P (MAP) Pulse Ox O2 Delivery O2 Flow Rate FiO2 08/21/17 11:22 84 18 50 08/21/17 08:47 82 18 50 08/21/17 08:00 77 08/21/17 08:00 97.1 80 18 119/63 96 Mechanical Ventilator 50 97.1 08/21/17 08:00 50 08/21/17 06:33 76 18 50 08/21/17 05:29 87 18 50 08/21/17 04:00 50 08/21/17 04:00 97.2 91 25 138/78 92 Mechanical Ventilator 50 97.2 08/21/17 03:36 82 08/21/17 03:11 82 18 50 08/21/17 00:59 85 19 50 08/21/17 00:00 98.3 83 18 103/59 100 Mechanical Ventilator 50 98.3 08/21/17 00:00 50 08/20/17 23:37 85 08/20/17 22:48 90 19 50 08/20/17 21:00 100.4 08/20/17 21:00 93 20 50 08/20/17 20:27 100.7 08/20/17 20:00 50 08/20/17 20:00 100.7 96 19 129/68 96 Mechanical Ventilator 50 100.7 08/20/17 19:40 94 08/20/17 18:56 92 20 50 08/20/17 16:43 86 18 50 08/20/17 16:00 50 08/20/17 16:00 99.3 90 20 94/47 100 Mechanical Ventilator 60 99.3 08/20/17 16:00 85 08/20/17 14:56 88 18 50 08/20/17 12:55 92 18 60 08/20/17 12:00 70 08/20/17 12:00 98.8 92 22 126/70 100 Mechanical Ventilator 70 98.8 08/20/17 11:48 90 Status: somnolent Condition: critical HEENT: atraumatic Heart: HR/BP stable Abdomen: soft, feeding tube Decubiti: location Micro: Microbiology Date/Time Source Procedure Growth Status 08/18/17 17:25 Blood Blood Culture - Preliminary Gram Positive Cocci Resulted 08/18/17 17:10 Blood Blood Culture - Preliminary NO GROWTH AFTER 48 HOURS Resulted 08/19/17 05:00 Stool Stool Culture - Preliminary NORMAL FECAL JOY. Resulted 08/18/17 17:00 Arm Left Catheter Tip Culture - Final Staphylococcus Sp Coag Neg Complete Accucheck: 131 Critical Care - Subjective FI02: 50 Vent Support Breath Rate: 18 Vent Support Mode: AC Vent Tidal Volume: 550 Sputum Amount: Moderate PEEP: 5.0 PIP: 34 Tube Feeding Amount: 55 I&O: Intake and Output 08/20/17 08/21/17 19:00 07:00 Intake Total 1535 ml 1735 ml Output Total 1600 ml 1300 ml Balance -65 ml 435 ml Free Water 70 ml 50 ml IV Total 775 ml 955 ml Tube Feeding 660 ml 660 ml Other 30 ml 70 ml Output Urine Total 1300 ml 1300 ml Stool Total 300 ml CXR: Ernestina Madrid MD Aug 21, 2017 11:47
[2017-08-21 12:00] VITALS: BP 119/67
[2017-08-21 16:00] VITALS: BP 117/70
[2017-08-21] MEDS ORDERED: Tubing IV Secondary IV ONE (16:22)
[2017-08-21] MEDS: cefTRIAXone 2 GM in NS 55 ML IVPB SCH ×2 (17:54→20:56)
[2017-08-21] MEDS: DAPTOmycin 400 MG in NS 55 ML IV SCH (18:04)
[2017-08-21 20:00] VITALS: BP 108/68
[2017-08-22] VITALS: BP 118/74
[2017-08-22 04:00] VITALS: BP 130/74
[2017-08-22] MEDS: metroNIDAZOLE 500mg tab ORAL SCH ×3 (05:29→21:25)
[2017-08-22 06:00] LABS: BASOPHILS % (AUTO) 0.5 % (0.0-2.0); HEMATOCRIT 27.4 % (42.0-52.0); HEMOGLOBIN 9.1 G/DL (14.2-18.0); LYMPHOCYTES % (AUTO) 14.3 % (20.0-45.0); MEAN CORPUSCULAR VOLUME 87 FL (80-99); NEUTROPHILS % (AUTO) 76.2 % (45.0-75.0); PLATELET COUNT 406 K/UL (150-450); RED BLOOD COUNT 3.17 M/UL (4.70-6.10); RED CELL DISTRIBUTION WIDTH 15.9 % (11.6-14.8); WHITE BLOOD COUNT 11.4 K/UL (4.8-10.8)
[2017-08-22 06:27] LABS: ALANINE AMINOTRANSFERASE 12 U/L (12-78); ALBUMIN 1.5 G/DL (3.4-5.0); ALBUMIN/GLOBULIN RATIO 0.2 (1.0-2.7); ALKALINE PHOSPHATASE 210 U/L (46-116); ANION GAP 10 mmol/L (5-15); ASPARTATE AMINO TRANSFERASE 31 U/L (15-37); BILIRUBIN,TOTAL 0.2 MG/DL (0.2-1.0); BLOOD UREA NITROGEN 24 mg/dL (7-18); CARBON DIOXIDE 21 MMOL/L (21-32); CHLORIDE 112 MMOL/L (98-107); POTASSIUM 4.4 MMOL/L (3.5-5.1); SODIUM 143 MMOL/L (136-145)
[2017-08-22 08:00] VITALS: BP 117/63
[2017-08-22] MEDS: Pantoprazole Inj IV SCH (09:33)
[2017-08-22] MEDS: levETIRAcetam 500mg/5ml Liquid GT SCH ×2 (09:34→17:42)
[2017-08-22] MEDS: Phenytoin Susp 100mg/4ml GT SCH ×2 (09:34→21:34)
[2017-08-22] MEDS: Amiodarone 200mg tab GT SCH ×2 (09:34→21:25)
[2017-08-22] MEDS: Heparin 5000 units/ml inj SUBQ SCH ×2 (09:36→21:26)
--- NOTE | 2017-08-22 11:27 | Diagnostic Imaging Report ---
Indication: Dyspnea Technique: One view of the chest Comparison: 08/17/2017 Findings: Interim development of near complete opacification of the right lung, with only minimal aerated lung in the right upper hemithorax. There is suggestion of abrupt cut off of the right mainstem bronchus as well as rightward mediastinal shift. There is new or increased moderate amount of pleural fluid in the left hemithorax. Gastrostomy balloon and presumed T fasteners are again seen in the left upper abdomen. Tracheostomy remains. Impression: Interim near complete opacification of the right lung, probably due to near complete right lung atelectasis, given evidence of bronchial occlusion and mediastinal shift indicating volume loss. Component of pleural fluid also possible, however. New or increased moderate left pleural effusion Other findings as noted
--- NOTE | 2017-08-22 11:31 | Pulmonolgy Critical Care Note ---
Critical Care - Asmt/Plan Problems: (1) Sepsis (2) Chronic respiratory failure (3) UTI (urinary tract infection) (4) Feeding by G-tube (5) Pressure ulcer Respiratory: monitor respiratory rate, adjust FIO2, CXR Cardiac: continue to monitor HR/BP Renal: keep IV fluid Infectious Disease: check cultures Gastrointestinal: continue feedings/current rate Endocrine: check TSH Hematologic: monitor H/H Neurologic: PRN Morphine, keep patient comfortable Prophylaxis: Protonix Notes Reviewed: safety and health manager Discussed with: nurses, consultants, telephonic nurse case manager, other - family meeting to get the consent of the family for comfort care and removing of the trach and feeding tube Critical Care - Objective Last 24 Hour Vital Signs Date Time Temp Pulse Resp B/P (MAP) Pulse Ox O2 Delivery O2 Flow Rate FiO2 08/22/17 11:08 84 18 50 08/22/17 09:15 101 18 50 08/22/17 07:25 100 19 50 08/22/17 05:27 98 21 50 08/22/17 04:00 98.3 96 19 130/74 100 Mechanical Ventilator 50 98.3 08/22/17 04:00 50 08/22/17 03:42 96 08/22/17 03:16 85 20 50 08/22/17 01:11 87 18 50 08/22/17 00:07 85 08/22/17 00:00 50 08/22/17 00:00 98.9 87 18 118/74 100 Mechanical Ventilator 50 98.9 08/21/17 23:17 86 18 50 08/21/17 21:09 78 18 50 08/21/17 20:00 50 08/21/17 20:00 99.5 87 20 108/68 100 Mechanical Ventilator 50 99.5 87 08/21/17 19:43 84 08/21/17 19:02 85 18 50 08/21/17 17:05 84 20 50 08/21/17 16:00 98.1 87 18 117/70 100 Mechanical Ventilator 50 98.1 08/21/17 16:00 50 08/21/17 16:00 88 08/21/17 15:18 89 20 50 08/21/17 12:48 83 20 50 08/21/17 12:00 50 08/21/17 12:00 76 08/21/17 12:00 97.7 77 18 119/67 100 Mechanical Ventilator 50 97.7 Status: obtunded Condition: critical HEENT: atraumatic Neck: full ROM Lungs: chest wall tender Heart: HR/BP stable, HR/BP unstable Abdomen: soft, non-tender Extremities: edema Decubiti: stage Accucheck: 131 Critical Care - Subjective ROS Limited/Unobtainable: Yes Condition: critical FI02: 50 Vent Support Breath Rate: 18 Vent Support Mode: AC Vent Tidal Volume: 550 Sputum Amount: Small PEEP: 5.0 PIP: 34 Tube Feeding Amount: 55 I&O: Intake and Output 08/21/17 08/22/17 19:00 07:00 Intake Total 970 ml 655 ml Output Total 750 ml 650 ml Balance 220 ml 5 ml Free Water 100 ml 50 ml IV Total 430 ml 55 ml Tube Feeding 440 ml 440 ml Other 110 ml Output Urine Total 750 ml 650 ml # Bowel Movements 1 2 CXR: right chest collapse Labs: Laboratory Tests Test 08/22/17 05:40 White Blood Count 11.4 K/UL (4.8-10.8) H Red Blood Count 3.17 M/UL (4.70-6.10) L Hemoglobin 9.1 G/DL (14.2-18.0) L Hematocrit 27.4 % (42.0-52.0) L Mean Corpuscular Volume 87 FL (80-99) Mean Corpuscular Hemoglobin 28.7 PG (27.0-31.0) Mean Corpuscular Hemoglobin Concent 33.2 G/DL (32.0-36.0) Red Cell Distribution Width 15.9 % (11.6-14.8) H Platelet Count 406 K/UL (150-450) Mean Platelet Volume 7.1 FL (6.5-10.1) Neutrophils (%) (Auto) 76.2 % (45.0-75.0) H Lymphocytes (%) (Auto) 14.3 % (20.0-45.0) L Monocytes (%) (Auto) 6.0 % (1.0-10.0) Eosinophils (%) (Auto) 3.0 % (0.0-3.0) Basophils (%) (Auto) 0.5 % (0.0-2.0) Sodium Level 143 MMOL/L (136-145) Potassium Level 4.4 MMOL/L (3.5-5.1) Chloride Level 112 MMOL/L (98-107) H Carbon Dioxide Level 21 MMOL/L (21-32) Anion Gap 10 mmol/L (5-15) Blood Urea Nitrogen 24 mg/dL (7-18) H Creatinine 1.0 MG/DL (0.55-1.30) Estimat Glomerular Filtration Rate > 60 mL/min (>60) Glucose Level 100 MG/DL (74-106) Calcium Level 9.0 MG/DL (8.5-10.1) Total Bilirubin 0.2 MG/DL (0.2-1.0) Aspartate Amino Transf (AST/SGOT) 31 U/L (15-37) Alanine Aminotransferase (ALT/SGPT) 12 U/L (12-78) Alkaline Phosphatase 210 U/L (46-116) H Pro-B-Type Natriuretic Peptide 1730 pg/mL (0-125) H Total Protein 7.9 G/DL (6.4-8.2) Albumin 1.5 G/DL (3.4-5.0) L Globulin 6.4 g/dL Albumin/Globulin Ratio 0.2 (1.0-2.7) L Ernestina James MD Aug 22, 2017 11:31
[2017-08-22 12:00] VITALS: BP 119/67
--- NOTE | 2017-08-22 15:11 | Infectious Diseases Prog Note ---
Assessment/Plan Assessment/Plan ASSESSMENT: The patient is a 62-year-old male with: Fever, improving- - ? due to mucous plug vs parapneumonic effusion; and to PICC line infection -HIDA scan neg -CXR 08/17: Interval expansion of the previously atelectatic right lung. Considerable infiltrate versus edema throughout the right lung. Increasing left basilar atelectasis and possibly infiltrate -CXR 08/16: Complete opacification right hemithorax. Probably due to atelectasis related to endobronchial occlusion at the level of the right mainstem bronchus. There may also be a significant component of pleural effusion. -Bcx NTD PICC line infection with CoNS, Ro SBE ( persistent bacteremia ) -Bcx 08/21 p -s/p removal PICC 08/18 -Bcx 08/15 1/ + PICC line, peripheral NTD; Bcx 08/18 : 2/4 CoNS; cath tip cx CoNS -echo 07/31: limited views, no obvious vegetations or significant valve abnormalities Recent Blood Cx: CoNS probable line infection (PICC from out side facility was removed on and replaced on 08/03 ) Complete opacification R lung- , much improved now, possibly due to mucous plug ; recurrent -CXR 08/22: Interim near complete opacification of the right lung, probably due to near complete right lung atelectasis, given evidence of bronchial occlusion and mediastinal shift indicating volume loss. Component of pleural fluid also possible,however.New or increased moderate left pleural effusion ? ventilatory-associated pneumonia Scx: MDR PSA (S gentamicin, Colistin), repeat sp cx 08/13 normal pipo- Low suspicion overall for TB CCT: Extensive interstitial opacities throughout the right lung as well as groundglass opacities. Large differential, suspect on the basis of pulmonary edema, particularly given evidence of edema elsewhere, but possibility of infection, including possible tuberculosis, should also be considered. Right lower lobe consolidation, may reflect pneumonia (chest x-ray:Considerably worse pleural and parenchymal disease on the right. Slightly worse in pleural and parenchymal disease on the left, over 3 days ) Influenza: Neg -AFB sp cx smear neg x3, cx p, MTB PCR neg -Blatomyces ab neg, CrAg neg, Histoplasma ID neg, CF not done due to anticomplement activity; Cocci ab pending -HIV ag/ab neg -TB spot + (suspect latent rather than active, final AFB cx pending), MTB PCR neg Multiple decubitus of lower extremity. Left heel unstageable decubitus (no purulent discharge.) probable osteo per bone scan -no wound cx obtained NM : flow, blood pool, static activity involving the calcaneal tuberosity on the left. This is worrisome for acute osteomyelitis Sacral Wnd :- no signs of infection -Wnd Cx : MDR Kleb abd MDR ACB (colonizers) ESR: 130 , CRP : 8 Leukocytosis, improving -Cdiff neg Elevated LFTs; improving 08/12 CT C/A/P : no abscess. Evidence of anasarca, with generalized edema of the subcutaneous fat,retroperitoneal and mesenteric fat, trace ascites, small left pleural effusion. Possible wall thickening of proximal and mid transverse and ascending colon. Could represent colitis although possibly artifactual due to under distention. Very questionable wall thickening of the duodenum and proximal jejunum, if real could indicate duodenitis/enteritis and/or peptic ulcer disease. Gas bubbles in the anterior aspect of the right rectus abdominis muscle belly. Cholelithiasis. Diffusely somewhat prominent pancreas, probably baseline for this patient, but the possibility of acute pancreatitis should be considered. Scattered punctate microcalcifications may represent sequelae of chronic calcifying pancreatitis, versus arterial calcifications. Ectasia of the pancreatic duct could also indicate chronic calcified pancreatitis no definite pancreatic head mass, although evaluation for such is limited in the absence of IVcontrast US Borderline gallbladder wall thickening, more likely artifact due to underdistention than real. Diarrhea CT: ? wall thickening of proximal and mid transverse and ascending colon.duodenum and proximal jejunum, and probable acute pancreatitis should be considered. ? Clostridium difficile: Neg Pl effusion: exudate , Pr : 4.4 , cell count : P ro empyema 08/12 SP ultrasound-guided thoracentesis, of 400 cc BETSY Diabetes. Anemia. GERD. Hypertension. History of TBI. Seizure disorder PLAN: -For possible acute OM of L heel- will treat empirically, given no obtainable cultures, with IV Daptomycin and Ceftriaxone (abx d#) and Flagyl #08/17 ( additional anaerobic coverage of osteo ) (Vanco switched to Dapto given CoNS bacteremia on 08/15 from PICC line) 08/19 SP INH colistin for MDR PsA PNA 08/18 SP IV Vancomycin #4 3/13 SP Micafungin #5 3/12 SP Meropenem #10 3/11 SP IV Colistin #9 3/4 SP vancomycin d# 9 and Zosyn and Gent d# 4 3/1 SP cefepime day # 5 -f/u repeat Bcx 08/21 -if persistent bacteremia s/p removal may need KATIE -d/c airborne isolation -PICC line to be placed once repeat Bcx neg for at least 48hrs Monitor chest x-ray f/u cocci ab, fungitell, AFB final cultures Subjective Allergies: Coded Allergies: No Known Allergies (Unverified , 07/31/17) Subjective afebrile in 36hrs MTB PCR neg repeat Bcx 08/21 pending leukoocytosis improved Objective Vital Signs Last 24 Hour Vital Signs Date Time Temp Pulse Resp B/P (MAP) Pulse Ox O2 Delivery O2 Flow Rate FiO2 08/22/17 13:03 80 18 50 08/22/17 12:00 50 08/22/17 12:00 83 08/22/17 12:00 97.7 77 18 119/67 100 Mechanical Ventilator 50 97.7 08/22/17 11:08 84 18 50 08/22/17 09:15 101 18 50 08/22/17 08:00 101 08/22/17 08:00 50 08/22/17 08:00 97.1 80 19 117/63 100 Mechanical Ventilator 50 97.1 08/22/17 07:25 100 19 50 08/22/17 05:27 98 21 50 08/22/17 04:00 98.3 96 19 130/74 100 Mechanical Ventilator 50 98.3 08/22/17 04:00 50 08/22/17 03:42 96 08/22/17 03:16 85 20 50 08/22/17 01:11 87 18 50 08/22/17 00:07 85 08/22/17 00:00 50 08/22/17 00:00 98.9 87 18 118/74 100 Mechanical Ventilator 50 98.9 08/21/17 23:17 86 18 50 08/21/17 21:09 78 18 50 08/21/17 20:00 50 08/21/17 20:00 99.5 87 20 108/68 100 Mechanical Ventilator 50 99.5 87 08/21/17 19:43 84 08/21/17 19:02 85 18 50 08/21/17 17:05 84 20 50 08/21/17 16:00 98.1 87 18 117/70 100 Mechanical Ventilator 50 98.1 08/21/17 16:00 50 08/21/17 16:00 88 08/21/17 15:18 89 20 50 Height (Feet): 6 Height (Inches): 0.00 Weight (Pounds): 143 Objective HEENT: atraumatic Neck: full ROM Heart: HR/BP stable, HR/BP unstable Abdomen: soft, active bowel sounds, feeding tube Extremities: no C/C/E Decubiti: location Laboratory Tests Test 08/22/17 05:40 White Blood Count 11.4 K/UL (4.8-10.8) H Red Blood Count 3.17 M/UL (4.70-6.10) L Hemoglobin 9.1 G/DL (14.2-18.0) L Hematocrit 27.4 % (42.0-52.0) L Mean Corpuscular Volume 87 FL (80-99) Mean Corpuscular Hemoglobin 28.7 PG (27.0-31.0) Mean Corpuscular Hemoglobin Concent 33.2 G/DL (32.0-36.0) Red Cell Distribution Width 15.9 % (11.6-14.8) H Platelet Count 406 K/UL (150-450) Mean Platelet Volume 7.1 FL (6.5-10.1) Neutrophils (%) (Auto) 76.2 % (45.0-75.0) H Lymphocytes (%) (Auto) 14.3 % (20.0-45.0) L Monocytes (%) (Auto) 6.0 % (1.0-10.0) Eosinophils (%) (Auto) 3.0 % (0.0-3.0) Basophils (%) (Auto) 0.5 % (0.0-2.0) Sodium Level 143 MMOL/L (136-145) Potassium Level 4.4 MMOL/L (3.5-5.1) Chloride Level 112 MMOL/L (98-107) H Carbon Dioxide Level 21 MMOL/L (21-32) Anion Gap 10 mmol/L (5-15) Blood Urea Nitrogen 24 mg/dL (7-18) H Creatinine 1.0 MG/DL (0.55-1.30) Estimat Glomerular Filtration Rate > 60 mL/min (>60) Glucose Level 100 MG/DL (74-106) Calcium Level 9.0 MG/DL (8.5-10.1) Total Bilirubin 0.2 MG/DL (0.2-1.0) Aspartate Amino Transf (AST/SGOT) 31 U/L (15-37) Alanine Aminotransferase (ALT/SGPT) 12 U/L (12-78) Alkaline Phosphatase 210 U/L (46-116) H Pro-B-Type Natriuretic Peptide 1730 pg/mL (0-125) H Total Protein 7.9 G/DL (6.4-8.2) Albumin 1.5 G/DL (3.4-5.0) L Globulin 6.4 g/dL Albumin/Globulin Ratio 0.2 (1.0-2.7) L Current Medications Medications (Trade) Dose Ordered Sig/Serena Route PRN Reason Start Time Stop Time Status Last Admin Dose Admin Acetaminophen (Tylenol) 650 mg Q4H PRN GT Mild Pain/Temp > 100.5 08/11/17 20:45 09/10/17 20:44 08/20/17 20:27 Amiodarone HCl (Cordarone) 200 mg EVERY 12 HOURS GT 07/31/17 21:00 08/30/17 20:59 08/22/17 09:34 Ceftriaxone Sodium 2 gm/ Sodium Chloride 55 ml @ 110 mls/hr Q24H IVPB 08/15/17 21:00 08/29/17 20:59 08/21/17 20:56 Daptomycin 400 mg/ Sodium Chloride 55 ml @ 100 mls/hr Q24H IV 08/18/17 17:00 08/25/17 16:59 08/21/17 18:04 Dextrose (Dextrose 50%) STAT PRN IV Hypoglycemia 07/31/17 17:00 08/30/17 16:59 Heparin Sodium (Porcine) (Heparin 5000 units/ml) 5,000 units EVERY 12 HOURS SUBQ 07/31/17 21:00 08/30/17 20:59 08/22/17 09:36 Levetiracetam (Keppra) 250 mg BID GT 07/31/17 18:00 08/30/17 17:59 08/22/17 09:34 Metronidazole (Flagyl) 500 mg Q8HR ORAL 08/20/17 14:00 08/27/17 13:59 08/22/17 14:35 Ondansetron HCl (Zofran) 4 mg Q6H PRN IVP Nausea & Vomiting 07/31/17 17:00 08/30/17 16:59 Pantoprazole (Protonix) 40 mg DAILY IV 08/01/17 09:00 08/31/17 08:59 08/22/17 09:33 Phenytoin (Dilantin) 100 mg Q12HR GT 08/09/17 16:00 09/08/17 15:59 08/22/17 09:34 Polyethylene Glycol (Miralax) 17 gm DAILYPRN PRN ORAL Constipation 07/31/17 17:00 08/30/17 16:59 Francsica Bullock M.D. Aug 22, 2017 15:11
[2017-08-22 16:00] VITALS: BP 139/65
[2017-08-22] MEDS: DAPTOmycin 400 MG in NS 55 ML IV SCH (17:42)
[2017-08-22 20:00] VITALS: BP 129/72
[2017-08-22] MEDS: cefTRIAXone 2 GM in NS 55 ML IVPB SCH (21:34)
[2017-08-23] VITALS: BP 130/74
[2017-08-23 04:00] VITALS: BP 130/74
[2017-08-23 05:23] LABS: HEMATOCRIT 22.2 % (42.0-52.0); HEMOGLOBIN 7.5 G/DL (14.2-18.0); MEAN CORPUSCULAR VOLUME 85 FL (80-99); PLATELET COUNT 464 K/UL (150-450); RED BLOOD COUNT 2.61 M/UL (4.70-6.10); RED CELL DISTRIBUTION WIDTH 15.6 % (11.6-14.8); WHITE BLOOD COUNT 7.7 K/UL (4.8-10.8)
[2017-08-23 05:59] LABS: ALANINE AMINOTRANSFERASE 14 U/L (12-78); ALBUMIN 1.3 G/DL (3.4-5.0); ALBUMIN/GLOBULIN RATIO 0.2 (1.0-2.7); ALKALINE PHOSPHATASE 169 U/L (46-116); ANION GAP 11 mmol/L (5-15); ASPARTATE AMINO TRANSFERASE 23 U/L (15-37); BILIRUBIN,TOTAL 0.2 MG/DL (0.2-1.0); BLOOD UREA NITROGEN 19 mg/dL (7-18); CALCIUM 8.5 MG/DL (8.5-10.1); CARBON DIOXIDE 22 MMOL/L (21-32); CHLORIDE 108 MMOL/L (98-107); CREATININE 0.8 MG/DL (0.55-1.30); POTASSIUM 3.4 MMOL/L (3.5-5.1); SODIUM 141 MMOL/L (136-145)
[2017-08-23] MEDS: metroNIDAZOLE 500mg tab ORAL SCH ×3 (07:01→22:35)
[2017-08-23 08:00] VITALS: BP 130/78
[2017-08-23] MEDS: Phenytoin Susp 100mg/4ml GT SCH ×2 (09:16→22:36)
[2017-08-23] MEDS: levETIRAcetam 500mg/5ml Liquid GT SCH ×2 (09:16→17:28)
[2017-08-23] MEDS: Pantoprazole Inj IV SCH (09:17)
[2017-08-23] MEDS: Amiodarone 200mg tab GT SCH ×2 (09:17→22:35)
[2017-08-23] MEDS: Heparin 5000 units/ml inj SUBQ SCH ×2 (09:18→22:38)
[2017-08-23 12:00] VITALS: BP 132/77
--- NOTE | 2017-08-23 12:13 | Diagnostic Imaging Report ---
. Indication: Dyspnea Technique: One view of the chest Comparison: 08/22/2017 Findings: Marked improved aeration of the right lung with return of the mediastinum is midline. There is still considerable hazy opacity throughout the right lung, particularly in the mid and lower lung. Hazy opacity is seen throughout the left lung, likely combination of airspace consolidation and pleural fluid. Heart size is normal. Tracheostomy remains Impression: Improved aeration of the right lung, since previous day's exam Bilateral hazy opacities, likely combination of pleural fluid and parenchymal infiltrates or edema Other findings as noted
--- NOTE | 2017-08-23 15:14 | Infectious Diseases Prog Note ---
Assessment/Plan Assessment/Plan ASSESSMENT: The patient is a 62-year-old male with: Fever, resolved- - ? due to mucous plug vs parapneumonic effusion; and to PICC line infection -HIDA scan neg -CXR 08/17: Interval expansion of the previously atelectatic right lung. Considerable infiltrate versus edema throughout the right lung. Increasing left basilar atelectasis and possibly infiltrate -CXR 08/16: Complete opacification right hemithorax. Probably due to atelectasis related to endobronchial occlusion at the level of the right mainstem bronchus. There may also be a significant component of pleural effusion. PICC line infection with CoNS, -repeat Bcx s/p removal of line so far NTD -Bcx 08/21 NTD -s/p removal PICC 08/18 -Bcx 08/15 06/07 + PICC line, peripheral NTD; Bcx 08/18 : 2/4 CoNS; cath tip cx CoNS -echo 07/31: limited views, no obvious vegetations or significant valve abnormalities Recent Blood Cx: CoNS probable line infection (PICC from out side facility was removed on and replaced on 08/03 ) Complete opacification R lung- , much improved now, possibly due to mucous plug ; recurrent -CXR 08/22: Interim near complete opacification of the right lung, probably due to near complete right lung atelectasis, given evidence of bronchial occlusion and mediastinal shift indicating volume loss. Component of pleural fluid also possible,however.New or increased moderate left pleural effusion ? ventilatory-associated pneumonia Scx: MDR PSA (S gentamicin, Colistin), repeat sp cx 08/13 normal pipo- Low suspicion overall for TB CCT: Extensive interstitial opacities throughout the right lung as well as groundglass opacities. Large differential, suspect on the basis of pulmonary edema, particularly given evidence of edema elsewhere, but possibility of infection, including possible tuberculosis, should also be considered. Right lower lobe consolidation, may reflect pneumonia (chest x-ray:Considerably worse pleural and parenchymal disease on the right. Slightly worse in pleural and parenchymal disease on the left, over 3 days ) Influenza: Neg -AFB sp cx smear neg x3, cx p, MTB PCR neg -Blatomyces ab neg, CrAg neg, Histoplasma ID neg, CF not done due to anticomplement activity; Cocci ab pending -HIV ag/ab neg -TB spot + (suspect latent rather than active, final AFB cx pending), MTB PCR neg Multiple decubitus of lower extremity. Left heel unstageable decubitus (no purulent discharge.) probable osteo per bone scan -no wound cx obtained NM : flow, blood pool, static activity involving the calcaneal tuberosity on the left. 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 Evidence of anasarca, with generalized edema of the subcutaneous fat,retroperitoneal and mesenteric fat, trace ascites, small left pleural effusion. Possible wall thickening of proximal and mid transverse and ascending colon. Could represent colitis although possibly artifactual due to under distention. Very questionable wall thickening of the duodenum and proximal jejunum, if real could indicate duodenitis/enteritis and/or peptic ulcer disease. Gas bubbles in the anterior aspect of the right rectus abdominis muscle belly. Cholelithiasis. Diffusely somewhat prominent pancreas, probably baseline for this patient, but the possibility of acute pancreatitis should be considered. Scattered punctate microcalcifications may represent sequelae of chronic calcifying pancreatitis, versus arterial calcifications. Ectasia of the pancreatic duct could also indicate chronic calcified pancreatitis no definite pancreatic head mass, although evaluation for such is limited in the absence of IVcontrast US Borderline gallbladder wall thickening, more likely artifact due to underdistention than real. Diarrhea CT: ? wall thickening of proximal and mid transverse and ascending colon.duodenum and proximal jejunum, and probable acute pancreatitis should be considered. ? Clostridium difficile: Neg Pl effusion: exudate , Pr : 4.4 , cell count : P ro empyema 08/12 SP ultrasound-guided thoracentesis, of 400 cc BETSY Diabetes. Anemia. GERD. Hypertension. History of TBI. Seizure disorder PLAN: -For possible acute OM of L heel- will treat empirically, given no obtainable cultures, with IV Daptomycin and Ceftriaxone (abx d#) and Flagyl #09/17 ( additional anaerobic coverage of osteo ) (Vanco switched to Dapto given CoNS bacteremia on 08/15 from PICC line) 08/19 SP INH colistin / for MDR PsA PNA 3/15 SP IV Vancomycin #4 3/13 SP Micafungin #5 3/12 SP Meropenem #10 3/11 SP IV Colistin #9 3/4 SP vancomycin d# 9 and Zosyn and Gent d# 4 3/1 SP cefepime day # 5 -f/u repeat Bcx 08/21 -if persistent bacteremia s/p removal PICC line may need KATIE -Ok to d/c airborne isolation, however final decision to be made by Dept of public health -PICC line to be placed once repeat Bcx neg for at least 48hrs Monitor chest x-ray f/u cocci ab, fungitell, AFB final cultures Subjective Allergies: Coded Allergies: No Known Allergies (Unverified , 07/31/17) Subjective afebrile in >72hrshrs repeat Bcx 08/21 NTD leukoocytosis resolved Objective Vital Signs Last 24 Hour Vital Signs Date Time Temp Pulse Resp B/P (MAP) Pulse Ox O2 Delivery O2 Flow Rate FiO2 08/23/17 15:07 81 19 30 08/23/17 12:57 83 18 30 08/23/17 12:00 85 08/23/17 12:00 99.2 85 20 132/77 100 Mechanical Ventilator 30 99.2 08/23/17 12:00 30 08/23/17 11:48 85 18 30 08/23/17 09:35 87 19 30 08/23/17 08:00 30 08/23/17 08:00 99.4 86 18 130/78 100 Mechanical Ventilator 30 99.4 08/23/17 07:36 80 08/23/17 07:19 82 18 30 08/23/17 05:29 87 18 30 08/23/17 04:00 98.0 81 18 130/74 100 Mechanical Ventilator 40 98.0 08/23/17 04:00 30 08/23/17 03:27 82 08/23/17 02:39 83 19 30 08/23/17 01:19 82 18 30 08/23/17 00:00 97.5 82 18 130/74 100 Mechanical Ventilator 40 97.5 08/22/17 23:24 78 08/22/17 23:15 88 18 40 08/22/17 23:15 88 18 Mechanical Ventilator 40 08/22/17 21:12 86 19 40 08/22/17 20:00 97.7 80 20 129/72 100 Mechanical Ventilator 40 97.7 08/22/17 20:00 40 18 19:27 78 08/22/17 19:02 81 18 40 08/22/17 17:06 78 18 50 08/22/17 16:00 50 08/22/17 16:00 82 08/22/17 16:00 98.5 100 20 139/65 98 Mechanical Ventilator 50 98.5 08/22/17 15:29 79 18 50 Height (Feet): 6 Height (Inches): 0.00 Weight (Pounds): 146 Objective HEENT: atraumatic Neck: full ROM Heart: HR/BP stable, HR/BP unstable Abdomen: soft, active bowel sounds, feeding tube Extremities: no C/C/E Decubiti: location Microbiology Date/Time Source Procedure Growth Status 08/21/17 10:25 Blood Blood Culture - Preliminary NO GROWTH AFTER 24 HOURS Resulted 08/21/17 10:15 Blood Blood Culture - Preliminary NO GROWTH AFTER 24 HOURS Resulted Laboratory Tests Test 08/23/17 05:00 White Blood Count 7.7 K/UL (4.8-10.8) Red Blood Count 2.61 M/UL (4.70-6.10) L Hemoglobin 7.5 G/DL (14.2-18.0) L Hematocrit 22.2 % (42.0-52.0) L Mean Corpuscular Volume 85 FL (80-99) Mean Corpuscular Hemoglobin 28.6 PG (27.0-31.0) Mean Corpuscular Hemoglobin Concent 33.7 G/DL (32.0-36.0) Red Cell Distribution Width 15.6 % (11.6-14.8) H Platelet Count 464 K/UL (150-450) H Mean Platelet Volume 7.0 FL (6.5-10.1) Neutrophils (%) (Auto) % (45.0-75.0) Lymphocytes (%) (Auto) % (20.0-45.0) Monocytes (%) (Auto) % (1.0-10.0) Eosinophils (%) (Auto) % (0.0-3.0) Basophils (%) (Auto) % (0.0-2.0) Differential Total Cells Counted 100 Neutrophils % (Manual) 69 % (45-75) Lymphocytes % (Manual) 21 % (20-45) Monocytes % (Manual) 7 % (1-10) Eosinophils % (Manual) 3 % (0-3) Basophils % (Manual) 0 % (0-2) Band Neutrophils 0 % (0-8) Platelet Estimate Adequate Platelet Morphology Normal Hypochromasia 1+ Anisocytosis 1+ Sodium Level 141 MMOL/L (136-145) Potassium Level 3.4 MMOL/L (3.5-5.1) L Chloride Level 108 MMOL/L (98-107) H Carbon Dioxide Level 22 MMOL/L (21-32) Anion Gap 11 mmol/L (5-15) Blood Urea Nitrogen 19 mg/dL (7-18) H Creatinine 0.8 MG/DL (0.55-1.30) Estimat Glomerular Filtration Rate > 60 mL/min (>60) Glucose Level 97 MG/DL (74-106) Calcium Level 8.5 MG/DL (8.5-10.1) Total Bilirubin 0.2 MG/DL (0.2-1.0) Aspartate Amino Transf (AST/SGOT) 23 U/L (15-37) Alanine Aminotransferase (ALT/SGPT) 14 U/L (12-78) Alkaline Phosphatase 169 U/L (46-116) H Pro-B-Type Natriuretic Peptide 1443 pg/mL (0-125) H Total Protein 7.2 G/DL (6.4-8.2) Albumin 1.3 G/DL (3.4-5.0) L Globulin 5.9 g/dL Albumin/Globulin Ratio 0.2 (1.0-2.7) L Current Medications Medications (Trade) Dose Ordered Sig/Serena Route PRN Reason Start Time Stop Time Status Last Admin Dose Admin Acetaminophen (Tylenol) 650 mg Q4H PRN GT Mild Pain/Temp > 100.5 08/11/17 20:45 09/10/17 20:44 08/20/17 20:27 Amiodarone HCl (Cordarone) 200 mg EVERY 12 HOURS GT 07/31/17 21:00 08/30/17 20:59 08/23/17 09:17 Ceftriaxone Sodium 2 gm/ Sodium Chloride 55 ml @ 110 mls/hr Q24H IVPB 08/15/17 21:00 08/29/17 20:59 08/22/17 21:34 Daptomycin 400 mg/ Sodium Chloride 55 ml @ 100 mls/hr Q24H IV 08/18/17 17:00 08/25/17 16:59 08/22/17 17:42 Dextrose (Dextrose 50%) STAT PRN IV Hypoglycemia 07/31/17 17:00 08/30/17 16:59 Heparin Sodium (Porcine) (Heparin 5000 units/ml) 5,000 units EVERY 12 HOURS SUBQ 07/31/17 21:00 08/30/17 20:59 08/23/17 09:18 Levetiracetam (Keppra) 250 mg BID GT 07/31/17 18:00 08/30/17 17:59 08/23/17 09:16 Metronidazole (Flagyl) 500 mg Q8HR ORAL 08/20/17 14:00 08/27/17 13:59 08/23/17 14:15 Ondansetron HCl (Zofran) 4 mg Q6H PRN IVP Nausea & Vomiting 07/31/17 17:00 08/30/17 16:59 Pantoprazole (Protonix) 40 mg DAILY IV 08/01/17 09:00 08/31/17 08:59 08/23/17 09:17 Phenytoin (Dilantin) 100 mg Q12HR GT 08/09/17 16:00 09/08/17 15:59 08/23/17 09:16 Polyethylene Glycol (Miralax) 17 gm DAILYPRN PRN ORAL Constipation 07/31/17 17:00 08/30/17 16:59 Francisca Bullock M.D. Aug 23, 2017 15:14
[2017-08-23 16:00] VITALS: BP 130/74
[2017-08-23] MEDS: DAPTOmycin 400 MG in NS 55 ML IV SCH (17:28)
--- NOTE | 2017-08-23 18:08 | Cardiology Report ---
APPROVED REPORT EXAM: Two-dimensional and M-mode echocardiogram with Doppler and color Doppler. INDICATION Heart Murmur M-Mode DIMENSIONS IVSd1.2 (0.7-1.1cm)Left Atrium (MM)3.9 (1.6-4.0cm) LVDd2.7 (3.5-5.6cm)Aortic Root2.8 (2.0-3.7cm) PWd1.3 (0.7-1.1cm)Aortic Cusp Exc.1.9 (1.5-2.0cm) LVDs0.5 (2.5-4.0cm) PWs2.2 cm Technically difficult study due to patient on ventilator. Study quality precludes accurate assessment of regional wall motion. Normal left ventricular chamber size, systolic function and wall motion. Left ventricular ejection fraction estimated to be 60-65 %. Mild left ventricular hypertrophy. Possible large pleural effusion. All other cardiac chamber sizes are within normal limits. Focal aortic valve sclerosis with adequate cusp excursion. Thickened mitral valve leaflets with normal excursion. Mild mitral annulus and aortic root calcification. Pulmonic valve not visualized. Normal tricuspid valve structure. IVC dilated at 2.1 cm without physiological collapse, estimated RAP is 15 mmHg. A color flow and spectral Doppler study was performed and revealed: No aortic insufficiency. Trace mitral regurgitation. Mitral diastolic velocities suggest mild left ventricular diastolic dysfunction (Grade I). Trace tricuspid regurgitation. Tricuspid systolic velocities suggests peak right ventricular systolic pressure of 27 mmHg.
--- NOTE | 2017-08-23 19:22 | Pulmonolgy Critical Care Note ---
Critical Care - Asmt/Plan Problems: (1) Sepsis (2) Chronic respiratory failure (3) UTI (urinary tract infection) (4) Feeding by G-tube (5) Pressure ulcer Respiratory: monitor respiratory rate, adjust FIO2, CXR Cardiac: continue to monitor HR/BP Renal: F/U I&O, keep IV fluid Infectious Disease: check cultures, continue antibiotics, add antibiotics Endocrine: monitor blood sugar, check HgA1C Neurologic: PRN Ativan, PRN Morphine Notes Reviewed: environmental scientist, cardio, renal Discussed with: nurses, consultants, case technicianshop manager - Objective Last 24 Hour Vital Signs Date Time Temp Pulse Resp B/P (MAP) Pulse Ox O2 Delivery O2 Flow Rate FiO2 08/23/17 18:50 84 18 30 08/23/17 16:45 80 19 30 08/23/17 16:00 98.8 81 18 130/74 100 Mechanical Ventilator 30 98.8 08/23/17 15:58 30 08/23/17 15:31 81 08/23/17 15:07 81 19 30 08/23/17 12:57 83 18 30 08/23/17 12:00 85 08/23/17 12:00 99.2 85 20 132/77 100 Mechanical Ventilator 30 99.2 08/23/17 12:00 30 08/23/17 11:48 85 18 30 08/23/17 09:35 87 19 30 08/23/17 08:00 30 08/23/17 08:00 99.4 86 18 130/78 100 Mechanical Ventilator 30 99.4 08/23/17 07:36 80 08/23/17 07:19 82 18 30 08/23/17 05:29 87 18 30 08/23/17 04:00 98.0 81 18 130/74 100 Mechanical Ventilator 40 98.0 08/23/17 04:00 30 08/23/17 03:27 82 08/23/17 02:39 83 19 30 08/23/17 01:19 82 18 30 08/23/17 00:00 97.5 82 18 130/74 100 Mechanical Ventilator 40 97.5 08/22/17 23:24 78 18 23:15 88 18 40 08/22/17 23:15 88 18 Mechanical Ventilator 40 08/22/17 21:12 86 19 40 08/22/17 20:00 97.7 80 20 129/72 100 Mechanical Ventilator 40 97.7 08/22/17 20:00 40 08/22/17 19:27 78 Status: awake Condition: critical HEENT: atraumatic Lungs: clear Heart: HR/BP stable Abdomen: soft, non-tender Extremities: no C/C/E, edema Decubiti: location Micro: Microbiology Date/Time Source Procedure Growth Status 08/21/17 10:25 Blood Blood Culture - Preliminary NO GROWTH AFTER 24 HOURS Resulted 08/21/17 10:15 Blood Blood Culture - Preliminary NO GROWTH AFTER 24 HOURS Resulted Accucheck: 131 Critical Care - Subjective ROS Limited/Unobtainable: Yes FI02: 30 Vent Support Breath Rate: 18 Vent Support Mode: AC Vent Tidal Volume: 550 Sputum Amount: Small PEEP: 5.0 PIP: 30 Tube Feeding Amount: 55 I&O: Intake and Output 08/22/17 08/23/17 19:00 07:00 Intake Total 740 ml 665 ml Output Total 1352 ml 800 ml Balance -612 ml -135 ml IV Total 55 ml 110 ml Tube Feeding 605 ml 495 ml Other 80 ml 60 ml Output Urine Total 1350 ml 800 ml Stool Total 2 ml # Bowel Movements 3 2 CXR: no change Labs: Laboratory Tests Test 08/23/17 05:00 White Blood Count 7.7 K/UL (4.8-10.8) Red Blood Count 2.61 M/UL (4.70-6.10) L Hemoglobin 7.5 G/DL (14.2-18.0) L Hematocrit 22.2 % (42.0-52.0) L Mean Corpuscular Volume 85 FL (80-99) Mean Corpuscular Hemoglobin 28.6 PG (27.0-31.0) Mean Corpuscular Hemoglobin Concent 33.7 G/DL (32.0-36.0) Red Cell Distribution Width 15.6 % (11.6-14.8) H Platelet Count 464 K/UL (150-450) H Mean Platelet Volume 7.0 FL (6.5-10.1) Neutrophils (%) (Auto) % (45.0-75.0) Lymphocytes (%) (Auto) % (20.0-45.0) Monocytes (%) (Auto) % (1.0-10.0) Eosinophils (%) (Auto) % (0.0-3.0) Basophils (%) (Auto) % (0.0-2.0) Differential Total Cells Counted 100 Neutrophils % (Manual) 69 % (45-75) Lymphocytes % (Manual) 21 % (20-45) Monocytes % (Manual) 7 % (1-10) Eosinophils % (Manual) 3 % (0-3) Basophils % (Manual) 0 % (0-2) Band Neutrophils 0 % (0-8) Platelet Estimate Adequate Platelet Morphology Normal Hypochromasia 1+ Anisocytosis 1+ Sodium Level 141 MMOL/L (136-145) Potassium Level 3.4 MMOL/L (3.5-5.1) L Chloride Level 108 MMOL/L (98-107) H Carbon Dioxide Level 22 MMOL/L (21-32) Anion Gap 11 mmol/L (5-15) Blood Urea Nitrogen 19 mg/dL (7-18) H Creatinine 0.8 MG/DL (0.55-1.30) Estimat Glomerular Filtration Rate > 60 mL/min (>60) Glucose Level 97 MG/DL (74-106) Calcium Level 8.5 MG/DL (8.5-10.1) Total Bilirubin 0.2 MG/DL (0.2-1.0) Aspartate Amino Transf (AST/SGOT) 23 U/L (15-37) Alanine Aminotransferase (ALT/SGPT) 14 U/L (12-78) Alkaline Phosphatase 169 U/L (46-116) H Pro-B-Type Natriuretic Peptide 1443 pg/mL (0-125) H Total Protein 7.2 G/DL (6.4-8.2) Albumin 1.3 G/DL (3.4-5.0) L Globulin 5.9 g/dL Albumin/Globulin Ratio 0.2 (1.0-2.7) L Ernestina James MD Aug 23, 2017 19:22
[2017-08-23 20:00] VITALS: BP 141/70
[2017-08-23] MEDS: cefTRIAXone 2 GM in NS 55 ML IVPB SCH (22:36)
[2017-08-24] VITALS (7 sets, daily range): BP systolic 110–128; BP diastolic 68–84
[2017-08-24] MEDS: metroNIDAZOLE 500mg tab ORAL SCH ×3 (05:54→22:47)
[2017-08-24 07:47] LABS: EOSINOPHILS % (AUTO) 6.5 % (0.0-3.0); HEMATOCRIT 24.6 % (42.0-52.0); HEMOGLOBIN 8.4 G/DL (14.2-18.0); LYMPHOCYTES % (AUTO) 22.5 % (20.0-45.0); MEAN CORPUSCULAR VOLUME 85 FL (80-99); MONOCYTES % (AUTO) 8.7 % (1.0-10.0); NEUTROPHILS % (AUTO) 61.3 % (45.0-75.0); PLATELET COUNT 501 K/UL (150-450); RED BLOOD COUNT 2.89 M/UL (4.70-6.10); RED CELL DISTRIBUTION WIDTH 15.5 % (11.6-14.8); WHITE BLOOD COUNT 7.5 K/UL (4.8-10.8)
[2017-08-24 08:10] LABS: ALANINE AMINOTRANSFERASE 14 U/L (12-78); ALBUMIN 1.5 G/DL (3.4-5.0); ALBUMIN/GLOBULIN RATIO 0.2 (1.0-2.7); ALKALINE PHOSPHATASE 192 U/L (46-116); ANION GAP 10 mmol/L (5-15); ASPARTATE AMINO TRANSFERASE 26 U/L (15-37); BILIRUBIN,TOTAL 0.2 MG/DL (0.2-1.0); BLOOD UREA NITROGEN 16 mg/dL (7-18); CALCIUM 8.5 MG/DL (8.5-10.1); CARBON DIOXIDE 22 MMOL/L (21-32); CHLORIDE 108 MMOL/L (98-107); POTASSIUM 3.8 MMOL/L (3.5-5.1); SODIUM 140 MMOL/L (136-145)
[2017-08-24] MEDS: levETIRAcetam 500mg/5ml Liquid GT SCH ×2 (10:33→18:22)
[2017-08-24] MEDS: Phenytoin Susp 100mg/4ml GT SCH ×2 (10:33→22:47)
[2017-08-24] MEDS: Amiodarone 200mg tab GT SCH ×2 (10:34→22:47)
[2017-08-24] MEDS: Pantoprazole Inj IV SCH (10:34)
[2017-08-24] MEDS: Heparin 5000 units/ml inj SUBQ SCH ×2 (10:37→22:48)
--- NOTE | 2017-08-24 12:50 | Pulmonolgy Critical Care Note ---
Critical Care - Asmt/Plan Problems: (1) Sepsis (2) Chronic respiratory failure (3) UTI (urinary tract infection) (4) Feeding by G-tube (5) Pressure ulcer Respiratory: monitor respiratory rate Cardiac: continue to monitor HR/BP Renal: F/U I&O, keep IV fluid Infectious Disease: check cultures, continue antibiotics Gastrointestinal: continue feedings/current rate Endocrine: monitor blood sugar, continue sliding scale insulin Hematologic: transfuse if hgb<8.5 Neurologic: PRN Ativan, PRN Morphine, keep patient comfortable Time Spent (Minutes): 40 Notes Reviewed: drawing kiln supervisor, renal Discussed with: nurses, consultants Critical Care - Objective Last 24 Hour Vital Signs Date Time Temp Pulse Resp B/P (MAP) Pulse Ox O2 Delivery O2 Flow Rate FiO2 08/24/17 12:00 30 08/24/17 12:00 97.6 86 20 118/72 100 Mechanical Ventilator 30 97.6 08/24/17 11:29 95 18 30 08/24/17 09:29 95 22 30 08/24/17 08:00 89 08/24/17 08:00 30 08/24/17 08:00 98.2 87 20 110/68 96 Mechanical Ventilator 30 98.2 08/24/17 06:30 86 18 30 08/24/17 04:46 87 18 30 08/24/17 04:00 83 08/24/17 04:00 98.4 87 18 114/72 100 Mechanical Ventilator 30 98.4 08/24/17 04:00 30 08/24/17 02:32 82 20 30 08/24/17 00:49 81 20 30 08/24/17 00:26 80 08/24/17 00:00 30 08/24/17 00:00 99.1 80 20 118/69 100 Mechanical Ventilator 30 99.1 08/23/17 23:22 82 20 30 08/23/17 21:38 81 19 30 08/23/17 20:00 30 08/23/17 20:00 98.8 81 20 141/70 100 Mechanical Ventilator 30 98.8 08/23/17 19:43 82 08/23/17 18:50 84 18 30 08/23/17 16:45 80 19 30 08/23/17 16:00 98.8 81 18 130/74 100 Mechanical Ventilator 30 98.8 3/20/18 15:58 30 08/23/17 15:31 81 08/23/17 15:07 81 19 30 08/23/17 12:57 83 18 30 Status: awake Condition: critical HEENT: atraumatic Neck: full ROM Heart: HR/BP stable Abdomen: non-tender, feeding tube Decubiti: location Accucheck: 131 Critical Care - Subjective ROS Limited/Unobtainable: Yes Condition: critical FI02: 30 Vent Support Breath Rate: 18 Vent Support Mode: AC Vent Tidal Volume: 550 Sputum Amount: Moderate PEEP: 5.0 PIP: 34 Tube Feeding Amount: 55 I&O: Intake and Output 08/23/17 08/24/17 19:00 07:00 Intake Total 195 ml 485 ml Output Total 600 ml 700 ml Balance -405 ml -215 ml Free Water 30 ml 100 ml IV Total 55 ml 55 ml Tube Feeding 110 ml 330 ml Output Urine Total 600 ml 700 ml # Voids 1 # Bowel Movements 2 2 CXR: lung opened up Labs: Laboratory Tests Test 08/24/17 06:10 White Blood Count 7.5 K/UL (4.8-10.8) Red Blood Count 2.89 M/UL (4.70-6.10) L Hemoglobin 8.4 G/DL (14.2-18.0) L Hematocrit 24.6 % (42.0-52.0) L Mean Corpuscular Volume 85 FL (80-99) Mean Corpuscular Hemoglobin 29.0 PG (27.0-31.0) Mean Corpuscular Hemoglobin Concent 34.0 G/DL (32.0-36.0) Red Cell Distribution Width 15.5 % (11.6-14.8) H Platelet Count 501 K/UL (150-450) H Mean Platelet Volume 6.9 FL (6.5-10.1) Neutrophils (%) (Auto) 61.3 % (45.0-75.0) Lymphocytes (%) (Auto) 22.5 % (20.0-45.0) Monocytes (%) (Auto) 8.7 % (1.0-10.0) Eosinophils (%) (Auto) 6.5 % (0.0-3.0) H Basophils (%) (Auto) 1.0 % (0.0-2.0) Sodium Level 140 MMOL/L (136-145) Potassium Level 3.8 MMOL/L (3.5-5.1) Chloride Level 108 MMOL/L (98-107) H Carbon Dioxide Level 22 MMOL/L (21-32) Anion Gap 10 mmol/L (5-15) Blood Urea Nitrogen 16 mg/dL (7-18) Creatinine 1.0 MG/DL (0.55-1.30) Estimat Glomerular Filtration Rate > 60 mL/min (>60) Glucose Level 109 MG/DL (74-106) H Calcium Level 8.5 MG/DL (8.5-10.1) Phosphorus Level 4.0 MG/DL (2.5-4.9) Magnesium Level 1.7 MG/DL (1.8-2.4) L Total Bilirubin 0.2 MG/DL (0.2-1.0) Aspartate Amino Transf (AST/SGOT) 26 U/L (15-37) Alanine Aminotransferase (ALT/SGPT) 14 U/L (12-78) Alkaline Phosphatase 192 U/L (46-116) H Total Protein 7.9 G/DL (6.4-8.2) Albumin 1.5 G/DL (3.4-5.0) L Globulin 6.4 g/dL Albumin/Globulin Ratio 0.2 (1.0-2.7) L Ernestina James MD Aug 24, 2017 12:50
--- NOTE | 2017-08-24 13:41 | Infectious Diseases Prog Note ---
Assessment/Plan Assessment/Plan ASSESSMENT: The patient is a 62-year-old male with: Fever, resolved- - ? due to mucous plug vs parapneumonic effusion; and to PICC line infection -HIDA scan neg -CXR 08/17: Interval expansion of the previously atelectatic right lung. Considerable infiltrate versus edema throughout the right lung. Increasing left basilar atelectasis and possibly infiltrate -CXR 08/16: Complete opacification right hemithorax. Probably due to atelectasis related to endobronchial occlusion at the level of the right mainstem bronchus. There may also be a significant component of pleural effusion. PICC line infection with CoNS, -repeat Bcx s/p removal of line so far NTD -Bcx 08/21 NTD -s/p removal PICC 08/18 -Bcx 08/15 06/07 + PICC line, peripheral NTD; Bcx 08/18 : 2/4 CoNS; cath tip cx CoNS -echo 07/31: limited views, no obvious vegetations or significant valve abnormalities Recent Blood Cx: CoNS probable line infection (PICC from out side facility was removed on and replaced on 08/03 ) Complete opacification R lung- , much improved now, possibly due to mucous plug ; recurrent -CXR 08/22: Interim near complete opacification of the right lung, probably due to near complete right lung atelectasis, given evidence of bronchial occlusion and mediastinal shift indicating volume loss. Component of pleural fluid also possible,however.New or increased moderate left pleural effusion ? ventilatory-associated pneumonia Scx: MDR PSA (S gentamicin, Colistin), repeat sp cx 08/13 normal pipo- Low suspicion overall for TB CCT: Extensive interstitial opacities throughout the right lung as well as groundglass opacities. Large differential, suspect on the basis of pulmonary edema, particularly given evidence of edema elsewhere, but possibility of infection, including possible tuberculosis, should also be considered. Right lower lobe consolidation, may reflect pneumonia (chest x-ray:Considerably worse pleural and parenchymal disease on the right. Slightly worse in pleural and parenchymal disease on the left, over 3 days ) Influenza: Neg -AFB sp cx smear neg x3, cx p, MTB PCR neg -Blatomyces ab neg, CrAg neg, Histoplasma ID neg, CF not done due to anticomplement activity; Cocci ab pending -HIV ag/ab neg -TB spot + (suspect latent rather than active, final AFB cx pending), MTB PCR neg Multiple decubitus of lower extremity. Left heel unstageable decubitus (no purulent discharge.) probable osteo per bone scan -no wound cx obtained NM : flow, blood pool, static activity involving the calcaneal tuberosity on the left. 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 Evidence of anasarca, with generalized edema of the subcutaneous fat,retroperitoneal and mesenteric fat, trace ascites, small left pleural effusion. Possible wall thickening of proximal and mid transverse and ascending colon. Could represent colitis although possibly artifactual due to under distention. Very questionable wall thickening of the duodenum and proximal jejunum, if real could indicate duodenitis/enteritis and/or peptic ulcer disease. Gas bubbles in the anterior aspect of the right rectus abdominis muscle belly. Cholelithiasis. Diffusely somewhat prominent pancreas, probably baseline for this patient, but the possibility of acute pancreatitis should be considered. Scattered punctate microcalcifications may represent sequelae of chronic calcifying pancreatitis, versus arterial calcifications. Ectasia of the pancreatic duct could also indicate chronic calcified pancreatitis no definite pancreatic head mass, although evaluation for such is limited in the absence of IVcontrast US Borderline gallbladder wall thickening, more likely artifact due to underdistention than real. Diarrhea CT: ? wall thickening of proximal and mid transverse and ascending colon.duodenum and proximal jejunum, and probable acute pancreatitis should be considered. ? Clostridium difficile: Neg Pl effusion: exudate , Pr : 4.4 , cell count : P ro empyema 08/12 SP ultrasound-guided thoracentesis, of 400 cc BETSY Diabetes. Anemia. GERD. Hypertension. History of TBI. Seizure disorder PLAN: -For possible acute OM of L heel- will treat empirically, given no obtainable cultures, with IV Daptomycin and Ceftriaxone (abx d#) and Flagyl #/ ( additional anaerobic coverage of osteo ) (Vanco switched to Dapto given CoNS bacteremia on 08/15 from PICC line) 08/19 SP INH colistin / for MDR PsA PNA 3/15 SP IV Vancomycin #4 3/13 SP Micafungin #5 3/12 SP Meropenem #10 3/11 SP IV Colistin #9 3/4 SP vancomycin d# 9 and Zosyn and Gent d# 4 3/1 SP cefepime day # 5 -f/u repeat Bcx 08/21 -if persistent bacteremia s/p removal PICC line may need KATIE -Ok to d/c airborne isolation -PICC line tomorrow if Bcx remains neg Monitor chest x-ray f/u cocci ab, fungitell, AFB final cultures Subjective Allergies: Coded Allergies: No Known Allergies (Unverified , 07/31/17) Subjective afebrile repeat Bcx 08/21 NTD no leukoocytosis Objective Vital Signs Last 24 Hour Vital Signs Date Time Temp Pulse Resp B/P (MAP) Pulse Ox O2 Delivery O2 Flow Rate FiO2 08/24/17 12:06 95 08/24/17 12:00 30 08/24/17 12:00 97.6 86 20 118/72 100 Mechanical Ventilator 30 97.6 08/24/17 11:29 95 18 30 08/24/17 09:29 95 22 30 08/24/17 08:00 89 08/24/17 08:00 30 08/24/17 08:00 98.2 87 20 110/68 96 Mechanical Ventilator 30 98.2 08/24/17 06:30 86 18 30 08/24/17 04:46 87 18 30 08/24/17 04:00 83 08/24/17 04:00 98.4 87 18 114/72 100 Mechanical Ventilator 30 98.4 08/24/17 04:00 30 08/24/17 02:32 82 20 30 08/24/17 00:49 81 20 30 08/24/17 00:26 80 08/24/17 00:00 30 08/24/17 00:00 99.1 80 20 118/69 100 Mechanical Ventilator 30 99.1 08/23/17 23:22 82 20 30 08/23/17 21:38 81 19 30 08/23/17 20:00 30 08/23/17 20:00 98.8 81 20 141/70 100 Mechanical Ventilator 30 98.8 08/23/17 19:43 82 08/23/17 18:50 84 18 30 08/23/17 16:45 80 19 30 08/23/17 16:00 98.8 81 18 130/74 100 Mechanical Ventilator 30 98.8 08/23/17 15:58 30 08/23/17 15:31 81 08/23/17 15:07 81 19 30 Height (Feet): 6 Height (Inches): 0.00 Weight (Pounds): 144 Objective HEENT: atraumatic Neck: full ROM Heart: HR/BP stable, HR/BP unstable Abdomen: soft, active bowel sounds, feeding tube Extremities: no C/C/E Decubiti: location Laboratory Tests Test 08/24/17 06:10 White Blood Count 7.5 K/UL (4.8-10.8) Red Blood Count 2.89 M/UL (4.70-6.10) L Hemoglobin 8.4 G/DL (14.2-18.0) L Hematocrit 24.6 % (42.0-52.0) L Mean Corpuscular Volume 85 FL (80-99) Mean Corpuscular Hemoglobin 29.0 PG (27.0-31.0) Mean Corpuscular Hemoglobin Concent 34.0 G/DL (32.0-36.0) Red Cell Distribution Width 15.5 % (11.6-14.8) H Platelet Count 501 K/UL (150-450) H Mean Platelet Volume 6.9 FL (6.5-10.1) Neutrophils (%) (Auto) 61.3 % (45.0-75.0) Lymphocytes (%) (Auto) 22.5 % (20.0-45.0) Monocytes (%) (Auto) 8.7 % (1.0-10.0) Eosinophils (%) (Auto) 6.5 % (0.0-3.0) H Basophils (%) (Auto) 1.0 % (0.0-2.0) Sodium Level 140 MMOL/L (136-145) Potassium Level 3.8 MMOL/L (3.5-5.1) Chloride Level 108 MMOL/L (98-107) H Carbon Dioxide Level 22 MMOL/L (21-32) Anion Gap 10 mmol/L (5-15) Blood Urea Nitrogen 16 mg/dL (7-18) Creatinine 1.0 MG/DL (0.55-1.30) Estimat Glomerular Filtration Rate > 60 mL/min (>60) Glucose Level 109 MG/DL (74-106) H Calcium Level 8.5 MG/DL (8.5-10.1) Phosphorus Level 4.0 MG/DL (2.5-4.9) Magnesium Level 1.7 MG/DL (1.8-2.4) L Total Bilirubin 0.2 MG/DL (0.2-1.0) Aspartate Amino Transf (AST/SGOT) 26 U/L (15-37) Alanine Aminotransferase (ALT/SGPT) 14 U/L (12-78) Alkaline Phosphatase 192 U/L (46-116) H Total Protein 7.9 G/DL (6.4-8.2) Albumin 1.5 G/DL (3.4-5.0) L Globulin 6.4 g/dL Albumin/Globulin Ratio 0.2 (1.0-2.7) L Current Medications Medications (Trade) Dose Ordered Sig/Serena Route PRN Reason Start Time Stop Time Status Last Admin Dose Admin Acetaminophen (Tylenol) 650 mg Q4H PRN GT Mild Pain/Temp > 100.5 08/11/17 20:45 09/10/17 20:44 08/20/17 20:27 Amiodarone HCl (Cordarone) 200 mg EVERY 12 HOURS GT 07/31/17 21:00 08/30/17 20:59 08/24/17 10:34 Ceftriaxone Sodium 2 gm/ Sodium Chloride 55 ml @ 110 mls/hr Q24H IVPB 08/15/17 21:00 08/29/17 20:59 08/23/17 22:36 Daptomycin 400 mg/ Sodium Chloride 55 ml @ 100 mls/hr Q24H IV 08/18/17 17:00 08/25/17 16:59 08/23/17 17:28 Dextrose (Dextrose 50%) STAT PRN IV Hypoglycemia 07/31/17 17:00 08/30/17 16:59 Heparin Sodium (Porcine) (Heparin 5000 units/ml) 5,000 units EVERY 12 HOURS SUBQ 07/31/17 21:00 08/30/17 20:59 08/24/17 10:37 Levetiracetam (Keppra) 250 mg BID GT 07/31/17 18:00 08/30/17 17:59 08/24/17 10:33 Metronidazole (Flagyl) 500 mg Q8HR ORAL 08/20/17 14:00 08/27/17 13:59 08/24/17 05:54 Ondansetron HCl (Zofran) 4 mg Q6H PRN IVP Nausea & Vomiting 07/31/17 17:00 08/30/17 16:59 Pantoprazole (Protonix) 40 mg DAILY IV 08/01/17 09:00 08/31/17 08:59 08/24/17 10:34 Phenytoin (Dilantin) 100 mg Q12HR GT 08/09/17 16:00 09/08/17 15:59 08/24/17 10:33 Polyethylene Glycol (Miralax) 17 gm DAILYPRN PRN ORAL Constipation 07/31/17 17:00 08/30/17 16:59 Francisca Bullock M.D. Aug 24, 2017 13:41
[2017-08-24] MEDS: DAPTOmycin 400 MG in NS 55 ML IV SCH (17:37)
[2017-08-24] MEDS: Dyna-Hex 2% Top Sol 2oz TOPIC SCH (19:33)
[2017-08-24] MEDS: cefTRIAXone 2 GM in NS 55 ML IVPB SCH (22:47)
[2017-08-25 04:00] VITALS: BP 116/69
[2017-08-25] MEDS: metroNIDAZOLE 500mg tab ORAL SCH ×3 (05:21→22:15)
[2017-08-25 05:42] LABS: ALANINE AMINOTRANSFERASE 13 U/L (12-78); ALBUMIN 1.6 G/DL (3.4-5.0); ALBUMIN/GLOBULIN RATIO 0.2 (1.0-2.7); ALKALINE PHOSPHATASE 190 U/L (46-116); ANION GAP 11 mmol/L (5-15); ASPARTATE AMINO TRANSFERASE 23 U/L (15-37); BILIRUBIN,TOTAL 0.2 MG/DL (0.2-1.0); BLOOD UREA NITROGEN 13 mg/dL (7-18); CALCIUM 8.4 MG/DL (8.5-10.1); CARBON DIOXIDE 22 MMOL/L (21-32); CHLORIDE 107 MMOL/L (98-107); PHOSPHORUS 4.6 MG/DL (2.5-4.9); POTASSIUM 3.7 MMOL/L (3.5-5.1); SODIUM 140 MMOL/L (136-145)
[2017-08-25 05:45] LABS: BASOPHILS % (AUTO) 0.7 % (0.0-2.0); EOSINOPHILS % (AUTO) 5.4 % (0.0-3.0); HEMATOCRIT 25.6 % (42.0-52.0); HEMOGLOBIN 8.6 G/DL (14.2-18.0); LYMPHOCYTES % (AUTO) 19.3 % (20.0-45.0); MEAN CORPUSCULAR VOLUME 86 FL (80-99); MONOCYTES % (AUTO) 7.7 % (1.0-10.0); NEUTROPHILS % (AUTO) 66.9 % (45.0-75.0); PLATELET COUNT 531 K/UL (150-450); RED BLOOD COUNT 2.98 M/UL (4.70-6.10); RED CELL DISTRIBUTION WIDTH 15.4 % (11.6-14.8); WHITE BLOOD COUNT 8.3 K/UL (4.8-10.8)
[2017-08-25 07:55] VITALS: BP 115/70
[2017-08-25] MEDS: levETIRAcetam 500mg/5ml Liquid GT SCH ×2 (09:42→18:04)
[2017-08-25] MEDS: Pantoprazole Inj IV SCH (09:43)
[2017-08-25] MEDS: Amiodarone 200mg tab GT SCH ×2 (09:43→22:16)
[2017-08-25] MEDS: Phenytoin Susp 100mg/4ml GT SCH ×2 (09:43→18:02)
[2017-08-25] MEDS: Heparin 5000 units/ml inj SUBQ SCH ×2 (09:45→22:19)
[2017-08-25] MEDS ORDERED: Lidocaine 1% Plain 30 ml INJ PRN (11:00)
[2017-08-25] MEDS ORDERED: Heparin 2000 units/Ns 1000ml INJ PRN (11:00)
[2017-08-25 11:46] VITALS: BP 117/78
--- NOTE | 2017-08-25 12:41 | Pulmonolgy Critical Care Note ---
Critical Care - Asmt/Plan Problems: (1) Sepsis (2) Chronic respiratory failure (3) UTI (urinary tract infection) (4) Feeding by G-tube (5) Pressure ulcer Respiratory: monitor respiratory rate Cardiac: continue pressors, d/c air sampling and monitoring Renal: F/U I&O Infectious Disease: check cultures Gastrointestinal: continue feedings/current rate, hold feedings Endocrine: monitor blood sugar, check HgA1C Neurologic: PRN Ativan, PRN Morphine Prophylaxis: Heparin Notes Reviewed: presiding judge Critical Care - Objective Last 24 Hour Vital Signs Date Time Temp Pulse Resp B/P (MAP) Pulse Ox O2 Delivery O2 Flow Rate FiO2 08/25/17 12:37 90 18 30 08/25/17 11:46 97.5 92 19 117/78 100 Mechanical Ventilator 30 97.5 08/25/17 10:42 88 18 30 08/25/17 09:04 92 18 30 08/25/17 08:00 30 08/25/17 07:55 97.3 92 20 115/70 100 Mechanical Ventilator 30 97.3 08/25/17 07:37 94 08/25/17 07:07 91 18 30 08/25/17 05:07 93 18 30 08/25/17 04:00 90 08/25/17 04:00 97.5 91 20 116/69 99 Mechanical Ventilator 30 97.5 08/25/17 04:00 30 08/25/17 02:11 91 19 30 08/25/17 00:56 96 23 30 08/25/17 00:00 30 08/25/17 00:00 86 08/24/17 23:59 97.0 85 19 124/78 100 Mechanical Ventilator 30 97.0 08/24/17 22:40 85 21 30 08/24/17 20:56 85 20 30 08/24/17 20:00 86 08/24/17 20:00 30 08/24/17 20:00 98.1 86 21 128/84 99 Mechanical Ventilator 30 98.1 08/24/17 18:57 89 21 30 08/24/17 16:58 85 18 30 08/24/17 16:00 98.6 87 22 127/78 100 Mechanical Ventilator 30 98.6 08/24/17 16:00 30 08/24/17 16:00 86 08/24/17 15:12 87 18 30 08/24/17 13:03 87 18 30 Status: somnolent Condition: critical, grave Neck: full ROM Lungs: clear Heart: HR/BP unstable, regular Abdomen: active bowel sounds, feeding tube Extremities: edema Decubiti: stage Accucheck: 131 Critical Care - Subjective ROS Limited/Unobtainable: No Condition: critical FI02: 30 Vent Support Breath Rate: 18 Vent Support Mode: AC Vent Tidal Volume: 550 Sputum Amount: Moderate PEEP: 5.0 PIP: 30 Tube Feeding Amount: 55 I&O: Intake and Output 08/24/17 08/25/17 19:00 07:00 Intake Total 750 ml 540 ml Output Total 450 ml 475 ml Balance 300 ml 65 ml Free Water 200 ml 100 ml IV Total 55 ml 55 ml Tube Feeding 495 ml 385 ml Output Urine Total 450 ml 475 ml # Voids 1 # Bowel Movements 4 2 Labs: Laboratory Tests Test 08/25/17 04:20 White Blood Count 8.3 K/UL (4.8-10.8) Red Blood Count 2.98 M/UL (4.70-6.10) L Hemoglobin 8.6 G/DL (14.2-18.0) L Hematocrit 25.6 % (42.0-52.0) L Mean Corpuscular Volume 86 FL (80-99) Mean Corpuscular Hemoglobin 28.8 PG (27.0-31.0) Mean Corpuscular Hemoglobin Concent 33.5 G/DL (32.0-36.0) Red Cell Distribution Width 15.4 % (11.6-14.8) H Platelet Count 531 K/UL (150-450) H Mean Platelet Volume 6.8 FL (6.5-10.1) Neutrophils (%) (Auto) 66.9 % (45.0-75.0) Lymphocytes (%) (Auto) 19.3 % (20.0-45.0) L Monocytes (%) (Auto) 7.7 % (1.0-10.0) Eosinophils (%) (Auto) 5.4 % (0.0-3.0) H Basophils (%) (Auto) 0.7 % (0.0-2.0) Sodium Level 140 MMOL/L (136-145) Potassium Level 3.7 MMOL/L (3.5-5.1) Chloride Level 107 MMOL/L (98-107) Carbon Dioxide Level 22 MMOL/L (21-32) Anion Gap 11 mmol/L (5-15) Blood Urea Nitrogen 13 mg/dL (7-18) Creatinine 1.0 MG/DL (0.55-1.30) Estimat Glomerular Filtration Rate > 60 mL/min (>60) Glucose Level 118 MG/DL (74-106) H Calcium Level 8.4 MG/DL (8.5-10.1) L Phosphorus Level 4.6 MG/DL (2.5-4.9) Magnesium Level 1.6 MG/DL (1.8-2.4) L Total Bilirubin 0.2 MG/DL (0.2-1.0) Aspartate Amino Transf (AST/SGOT) 23 U/L (15-37) Alanine Aminotransferase (ALT/SGPT) 13 U/L (12-78) Alkaline Phosphatase 190 U/L (46-116) H Total Protein 8.0 G/DL (6.4-8.2) Albumin 1.6 G/DL (3.4-5.0) L Globulin 6.4 g/dL Albumin/Globulin Ratio 0.2 (1.0-2.7) L Ernestina James MD Aug 25, 2017 12:41
--- NOTE | 2017-08-25 13:51 | Infectious Diseases Prog Note ---
Assessment/Plan Assessment/Plan ASSESSMENT: The patient is a 62-year-old male with: Fever, resolved- - ? due to mucous plug vs parapneumonic effusion; and to PICC line infection -HIDA scan neg -CXR 08/17: Interval expansion of the previously atelectatic right lung. Considerable infiltrate versus edema throughout the right lung. Increasing left basilar atelectasis and possibly infiltrate -CXR 08/16: Complete opacification right hemithorax. Probably due to atelectasis related to endobronchial occlusion at the level of the right mainstem bronchus. There may also be a significant component of pleural effusion. PICC line infection with CoNS, -repeat Bcx s/p removal of line so far NTD -Bcx 08/21 NTD -s/p removal PICC 08/18 -Bcx 08/15 06/07 + PICC line, peripheral NTD; Bcx 08/18 : 2/4 CoNS; cath tip cx CoNS -echo 07/31: limited views, no obvious vegetations or significant valve abnormalities Recent Blood Cx: CoNS probable line infection (PICC from out side facility was removed on and replaced on 08/03 ) Complete opacification R lung- , much improved now, possibly due to mucous plug ; recurrent -CXR 08/22: Interim near complete opacification of the right lung, probably due to near complete right lung atelectasis, given evidence of bronchial occlusion and mediastinal shift indicating volume loss. Component of pleural fluid also possible,however.New or increased moderate left pleural effusion ? ventilatory-associated pneumonia Scx: MDR PSA (S gentamicin, Colistin), repeat sp cx 08/13 normal pipo- Low suspicion overall for TB CCT: Extensive interstitial opacities throughout the right lung as well as groundglass opacities. Large differential, suspect on the basis of pulmonary edema, particularly given evidence of edema elsewhere, but possibility of infection, including possible tuberculosis, should also be considered. Right lower lobe consolidation, may reflect pneumonia (chest x-ray:Considerably worse pleural and parenchymal disease on the right. Slightly worse in pleural and parenchymal disease on the left, over 3 days ) Influenza: Neg -AFB sp cx smear neg x3, cx p, MTB PCR neg -Blatomyces ab neg, CrAg neg, Histoplasma ID neg, CF not done due to anticomplement activity; Cocci ab pending -HIV ag/ab neg -TB spot + (suspect latent rather than active, final AFB cx pending), MTB PCR neg Multiple decubitus of lower extremity. Left heel unstageable decubitus (no purulent discharge.) probable osteo per bone scan -no wound cx obtained NM : flow, blood pool, static activity involving the calcaneal tuberosity on the left. 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 Evidence of anasarca, with generalized edema of the subcutaneous fat,retroperitoneal and mesenteric fat, trace ascites, small left pleural effusion. Possible wall thickening of proximal and mid transverse and ascending colon. Could represent colitis although possibly artifactual due to under distention. Very questionable wall thickening of the duodenum and proximal jejunum, if real could indicate duodenitis/enteritis and/or peptic ulcer disease. Gas bubbles in the anterior aspect of the right rectus abdominis muscle belly. Cholelithiasis. Diffusely somewhat prominent pancreas, probably baseline for this patient, but the possibility of acute pancreatitis should be considered. Scattered punctate microcalcifications may represent sequelae of chronic calcifying pancreatitis, versus arterial calcifications. Ectasia of the pancreatic duct could also indicate chronic calcified pancreatitis no definite pancreatic head mass, although evaluation for such is limited in the absence of IVcontrast US Borderline gallbladder wall thickening, more likely artifact due to underdistention than real. Diarrhea CT: ? wall thickening of proximal and mid transverse and ascending colon.duodenum and proximal jejunum, and probable acute pancreatitis should be considered. ? Clostridium difficile: Neg Pl effusion: exudate , Pr : 4.4 , cell count : P ro empyema 08/12 SP ultrasound-guided thoracentesis, of 400 cc BETSY Diabetes. Anemia. GERD. Hypertension. History of TBI. Seizure disorder PLAN: -For possible acute OM of L heel- will treat empirically, given no obtainable cultures, with IV Daptomycin and Ceftriaxone (abx d#) and Flagyl #/ ( additional anaerobic coverage of osteo ) (Vanco switched to Dapto given CoNS bacteremia on 08/15 from PICC line) 08/19 SP INH colistin / for MDR PsA PNA 3/15 SP IV Vancomycin #4 3/13 SP Micafungin #5 3/12 SP Meropenem #10 3/11 SP IV Colistin #9 3/4 SP vancomycin d# 9 and Zosyn and Gent d# 4 3/ SP cefepime day # 5 -f/u repeat Bcx 08/21 -PICC line today Monitor chest x-ray f/u cocci ab, fungitell, AFB final cultures Discussed with RN. Subjective Allergies: Coded Allergies: No Known Allergies (Unverified , 07/31/17) Subjective afebrile repeat Bcx 08/21 NTD no leukoocytosis for PICC Line off airborne isolation Objective Vital Signs Last 24 Hour Vital Signs Date Time Temp Pulse Resp B/P (MAP) Pulse Ox O2 Delivery O2 Flow Rate FiO2 08/25/17 12:37 90 18 30 08/25/17 12:00 94 08/25/17 12:00 30 08/25/17 11:46 97.5 92 19 117/78 100 Mechanical Ventilator 30 97.5 08/25/17 10:42 88 18 30 08/25/17 09:04 92 18 30 08/25/17 08:00 30 08/25/17 07:55 97.3 92 20 115/70 100 Mechanical Ventilator 30 97.3 08/25/17 07:37 94 08/25/17 07:07 91 18 30 08/25/17 05:07 93 18 30 08/25/17 04:00 90 08/25/17 04:00 97.5 91 20 116/69 99 Mechanical Ventilator 30 97.5 08/25/17 04:00 30 08/25/17 02:11 91 19 30 08/25/17 00:56 96 23 30 08/25/17 00:00 30 08/25/17 00:00 86 08/24/17 23:59 97.0 85 19 124/78 100 Mechanical Ventilator 30 97.0 08/24/17 22:40 85 21 30 08/24/17 20:56 85 20 30 08/24/17 20:00 86 08/24/17 20:00 30 08/24/17 20:00 98.1 86 21 128/84 99 Mechanical Ventilator 30 98.1 08/24/17 18:57 89 21 30 08/24/17 16:58 85 18 30 08/24/17 16:00 98.6 87 22 127/78 100 Mechanical Ventilator 30 98.6 08/24/17 16:00 30 08/24/17 16:00 86 08/24/17 15:12 87 18 30 Height (Feet): 6 Height (Inches): 0.00 Weight (Pounds): 145 Objective HEENT: atraumatic Neck: full ROM Heart: HR/BP stable, HR/BP unstable Abdomen: soft, active bowel sounds, feeding tube Extremities: no C/C/E Decubiti: location Laboratory Tests Test 08/25/17 04:20 White Blood Count 8.3 K/UL (4.8-10.8) Red Blood Count 2.98 M/UL (4.70-6.10) L Hemoglobin 8.6 G/DL (14.2-18.0) L Hematocrit 25.6 % (42.0-52.0) L Mean Corpuscular Volume 86 FL (80-99) Mean Corpuscular Hemoglobin 28.8 PG (27.0-31.0) Mean Corpuscular Hemoglobin Concent 33.5 G/DL (32.0-36.0) Red Cell Distribution Width 15.4 % (11.6-14.8) H Platelet Count 531 K/UL (150-450) H Mean Platelet Volume 6.8 FL (6.5-10.1) Neutrophils (%) (Auto) 66.9 % (45.0-75.0) Lymphocytes (%) (Auto) 19.3 % (20.0-45.0) L Monocytes (%) (Auto) 7.7 % (1.0-10.0) Eosinophils (%) (Auto) 5.4 % (0.0-3.0) H Basophils (%) (Auto) 0.7 % (0.0-2.0) Sodium Level 140 MMOL/L (136-145) Potassium Level 3.7 MMOL/L (3.5-5.1) Chloride Level 107 MMOL/L (98-107) Carbon Dioxide Level 22 MMOL/L (21-32) Anion Gap 11 mmol/L (5-15) Blood Urea Nitrogen 13 mg/dL (7-18) Creatinine 1.0 MG/DL (0.55-1.30) Estimat Glomerular Filtration Rate > 60 mL/min (>60) Glucose Level 118 MG/DL (74-106) H Calcium Level 8.4 MG/DL (8.5-10.1) L Phosphorus Level 4.6 MG/DL (2.5-4.9) Magnesium Level 1.6 MG/DL (1.8-2.4) L Total Bilirubin 0.2 MG/DL (0.2-1.0) Aspartate Amino Transf (AST/SGOT) 23 U/L (15-37) Alanine Aminotransferase (ALT/SGPT) 13 U/L (12-78) Alkaline Phosphatase 190 U/L (46-116) H Total Protein 8.0 G/DL (6.4-8.2) Albumin 1.6 G/DL (3.4-5.0) L Globulin 6.4 g/dL Albumin/Globulin Ratio 0.2 (1.0-2.7) L Current Medications Medications (Trade) Dose Ordered Sig/Serena Route PRN Reason Start Time Stop Time Status Last Admin Dose Admin Acetaminophen (Tylenol) 650 mg Q4H PRN GT Mild Pain/Temp > 100.5 08/11/17 20:45 09/10/17 20:44 08/20/17 20:27 Amiodarone HCl (Cordarone) 200 mg EVERY 12 HOURS GT 07/31/17 21:00 08/30/17 20:59 08/25/17 09:43 Ceftriaxone Sodium 2 gm/ Sodium Chloride 55 ml @ 110 mls/hr Q24H IVPB 08/15/17 21:00 08/29/17 20:59 08/24/17 22:47 Chlorhexidine Gluconate (Ngoc-Hex 2%) 1 applic DAILY@2000 TOPIC 08/24/17 20:00 09/23/17 19:59 Daptomycin 400 mg/ Sodium Chloride 55 ml @ 100 mls/hr Q24H IV 08/18/17 17:00 08/25/17 16:59 08/24/17 17:37 Dextrose (Dextrose 50%) STAT PRN IV Hypoglycemia 07/31/17 17:00 08/30/17 16:59 Heparin Sodium (Porcine) (Heparin 5000 units/ml) 5,000 units EVERY 12 HOURS SUBQ 07/31/17 21:00 08/30/17 20:59 08/25/17 09:45 Heparin Sodium/ Sodium Chloride (Heparin 2000 units/Ns 1000ml premix) 2,000 unit ONCE PRN INJ PICC PLACEMENT 08/25/17 11:00 08/25/17 23:59 Levetiracetam (Keppra) 250 mg BID GT 07/31/17 18:00 08/30/17 17:59 08/25/17 09:42 Lidocaine HCl (Xylocaine 1% 30ml) 30 ml ONCE PRN INJ PICC PLACEMENT 08/25/17 11:00 08/25/17 23:59 Metronidazole (Flagyl) 500 mg Q8HR ORAL 08/20/17 14:00 08/27/17 13:59 08/25/17 05:21 Ondansetron HCl (Zofran) 4 mg Q6H PRN IVP Nausea & Vomiting 07/31/17 17:00 08/30/17 16:59 Pantoprazole (Protonix) 40 mg DAILY IV 08/01/17 09:00 08/31/17 08:59 08/25/17 09:43 Phenytoin (Dilantin) 100 mg Q12HR GT 08/09/17 16:00 09/08/17 15:59 08/25/17 09:43 Polyethylene Glycol (Miralax) 17 gm DAILYPRN PRN ORAL Constipation 07/31/17 17:00 08/30/17 16:59 Francisca Bullock M.D. Aug 25, 2017 13:51
[2017-08-25 16:00] VITALS: BP 121/77
--- NOTE | 2017-08-25 16:30 | Diagnostic Imaging Report ---
Indications: Needs long-term IV access Technique: Procedure performed at bedside. Procedural timeout performed. Ultrasound confirms patent compressible left basilic vein. Total sterile technique, including sterile probe cover and sterile gel, sterile gloves, hand hygiene, hat, mask,, sterile gown, large sterile drape, and preparation with 2% chlorhexidine utilized. Local anesthesia with 1% lidocaine. Under real-time ultrasound guidance, puncture basilic vein using 21-gauge needle, passage 0.018 guidewire, exchange for 5 Yoruba peel-away sheath. 5 Yoruba Bard dual-lumen power PICC cut to 41 cm. It was inserted through the peel-away sheath. Peel-away sheath and guidewire removed. Catheter fixed to the skin. Both catheter ports aspirated and flushed. Patient tolerated procedure well, without immediate complication. Followup chest x-ray obtained, documents catheter tip looped in the superior vena cava. The catheter entry site was reprepped and redraped, and a guidewire was inserted into the catheter in order to straighten it out. The catheter was also withdrawn about 4 cm. A final radiograph demonstrates catheter tip position at the level of the mid superior vena cava Impression: Successful bedside placement of left arm PICC under sonographic guidance, as described above.
[2017-08-25] MEDS: DAPTOmycin 400 MG in NS 55 ML IV SCH (18:01)
[2017-08-25 20:00] VITALS: BP 124/73
[2017-08-25] MEDS ORDERED: Dyna-Hex 2% Top Sol 2oz TOPIC SCH (20:00)
[2017-08-25] MEDS: Dyna-Hex 2% Top Sol 2oz TOPIC SCH (22:15)
[2017-08-25] MEDS: cefTRIAXone 2 GM in NS 55 ML IVPB SCH (22:17)
[2017-08-26] VITALS: BP 128/73
[2017-08-26 04:00] VITALS: BP 127/73
--- NOTE | 2017-08-26 05:31 | Consultation ---
DATE OF CONSULTATION: 08/25/2017 NOTE: POOR AUDIO HEMATOLOGY/ONCOLOGY CONSULTATION CONSULTING PHYSICIAN: López Vásquez M.D. REQUESTING PHYSICIAN: Ernestina James M.D. REASON FOR CONSULTATION: Evaluation of anemia and thrombocytosis. IDENTIFYING DATA: Dear Dr. James, The patient is a pleasant 62-year-old male, who I have seen him in the past. He has a past medical history, which is significant for chronic vent, trach. The patient was brought in with complaints of rapid heart rate and noted to have fever seen by ID Service, Dr. Francisca Bullock, and noted to have HIDA scan, which was negative. Chest x-ray showed initially pneumonia and has since resolved. PICC line grew out coagulase-negative Staph. Recent has been negative. PICC line had been placed. In addition, the patient has multiple decubitus ulcerations and transaminitis noted as well. The patient was noted to have anemia and Hematology Service was consulted for further evaluation and underlying treatment. PAST MEDICAL HISTORY: Type 2 diabetes, anemia, GERD, hypertension, chronic vent, trach, and PEG. PAST SURGICAL HISTORY: Trach and PEG. ALLERGIES: No known drug allergies. SOCIAL HISTORY: No alcohol, tobacco, or illicit drug use. REVIEW OF SYSTEMS: otherwise, difficult to obtain given mental status. PHYSICAL EXAMINATION: VITAL SIGNS: Reviewed. GENERAL: No distress. PULMONARY: Decreased breath sounds. Status post trach. CARDIOVASCULAR: Regular rate. No S3 or S4. ABDOMEN: Soft, nontender, and nondistended. feeding tube is noted. EXTREMITIES: No cyanosis, swelling, or edema. NEUROLOGIC: Difficult to obtain. Difficult to communicate. LABORATORY DATA: WBC , hemoglobin 8.6, hematocrit 26, and platelet count 131,000. Serology reviewed. Blastomycosis negative. Histoplasmosis negative. Chemistry reviewed. Since the patient's admission here, total bilirubin 0.2. Of note, he had had anemia workup. INR 1.4. . ASSESSMENT AND RECOMMENDATIONS: 1. Anemia of chronic disease. ESR 134. Obtain anemia workup. This has not yet been completed. The patient's anemia . 2. Leukocytosis, likely secondary to infection, has since improved. 3. Coagulopathy. vitamin K intake. imaging reviewed. Prominent pancreas, calcification is noted. 4. Dysphagia, status post percutaneous endoscopic gastrostomy tube. 5. Cholelithiasis is noted on ultrasound. Borderline diabetic . HIDA scan is negative. 6. Transaminitis has since improved, potentially secondary to medications. I appreciate the consultation. López Vásquez M.D. DR: JOSUE JOB#: [id number] CC:
[2017-08-26 06:04] LABS: FERRITIN 698 NG/ML (8-388)
[2017-08-26 06:06] LABS: CREATINE KINASE 27 U/L (26-308)
[2017-08-26] MEDS: metroNIDAZOLE 500mg tab ORAL SCH ×3 (06:07→21:56)
[2017-08-26 06:16] LABS: % IRON SATURATION 37 % (15-50); IRON 37 ug/dL (50-175); TOTAL IRON BINDING CAPACITY 99 ug/dL (250-450)
[2017-08-26 08:00] VITALS: BP 95/70
[2017-08-26] MEDS: Pantoprazole Inj IV SCH (08:53)
[2017-08-26] MEDS: Phenytoin Susp 100mg/4ml GT SCH ×2 (08:54→21:45)
[2017-08-26] MEDS: levETIRAcetam 500mg/5ml Liquid GT SCH ×2 (08:54→18:08)
[2017-08-26] MEDS: Amiodarone 200mg tab GT SCH ×2 (08:54→21:45)
[2017-08-26] MEDS: Heparin 5000 units/ml inj SUBQ SCH ×2 (08:56→21:47)
--- NOTE | 2017-08-26 11:04 | Pulmonolgy Critical Care Note ---
Critical Care - Asmt/Plan Problems: (1) Sepsis (2) Chronic respiratory failure (3) UTI (urinary tract infection) (4) Feeding by G-tube (5) Pressure ulcer Respiratory: monitor respiratory rate, adjust FIO2, CXR Cardiac: continue to monitor HR/BP Renal: F/U I&O, keep IV fluid Infectious Disease: check cultures Gastrointestinal: hold feedings Endocrine: monitor blood sugar, check TSH Hematologic: monitor H/H Neurologic: PRN Ativan Affect: PRN ativan Prophylaxis: Heparin Critical Care - Objective Last 24 Hour Vital Signs Date Time Temp Pulse Resp B/P (MAP) Pulse Ox O2 Delivery O2 Flow Rate FiO2 08/26/17 08:00 98.3 91 19 95/70 99 Mechanical Ventilator 30 98.3 08/26/17 08:00 30 08/26/17 08:00 90 08/26/17 06:46 90 19 30 08/26/17 05:27 86 18 30 08/26/17 04:00 30 08/26/17 04:00 98.0 91 18 127/73 100 Mechanical Ventilator 30 98.0 08/26/17 04:00 91 08/26/17 03:28 92 18 30 08/26/17 01:20 89 18 30 08/26/17 00:00 87 08/26/17 00:00 98.1 88 20 128/73 100 Mechanical Ventilator 30 98.1 08/25/17 23:08 86 20 30 08/25/17 21:11 87 18 30 08/25/17 20:00 30 08/25/17 20:00 86 08/25/17 20:00 97.7 85 18 124/73 100 Mechanical Ventilator 30 97.7 08/25/17 19:11 87 23 30 08/25/17 16:31 85 18 30 08/25/17 16:00 98.7 84 18 121/77 100 Mechanical Ventilator 30 98.7 08/25/17 16:00 30 08/25/17 16:00 86 08/25/17 15:22 84 18 30 08/25/17 12:37 90 18 30 08/25/17 12:00 94 08/25/17 12:00 30 08/25/17 11:46 97.5 92 19 117/78 100 Mechanical Ventilator 30 97.5 Status: sedated Condition: critical HEENT: atraumatic Lungs: clear Heart: HR/BP unstable, regular Abdomen: non-tender Extremities: no C/C/E, edema Accucheck: 131 Critical Care - Subjective Condition: critical EKG Rhythm: Sinus Rhythm FI02: 30 Vent Support Breath Rate: 18 Vent Support Mode: AC Vent Tidal Volume: 550 Sputum Amount: Moderate PEEP: 5.0 PIP: 29 Tube Feeding Amount: 55 I&O: Intake and Output 08/25/17 08/26/17 19:00 07:00 Intake Total 640 ml 830 ml Output Total 600 ml 1000 ml Balance 40 ml -170 ml Free Water 150 ml 115 ml IV Total 55 ml Tube Feeding 440 ml 660 ml Blood Product 50 ml Output Urine Total 600 ml 1000 ml # Bowel Movements 4 3 Labs: Laboratory Tests Test 08/26/17 05:00 Reticulocyte Count 2.3 % (0.0-2.0) H Haptoglobin Pending PTT Mixing Study Pending APTT Patient/Control Mix Pending Mix PTT Incubation Time Pending Mix PTT Normal/Saline 1:1 Immediate Pending Thrombin Time Normal Plasma Pending Uric Acid 3.6 MG/DL (2.6-7.2) Iron Level 37 ug/dL (50-175) L Total Iron Binding Capacity 99 ug/dL (250-450) L Percent Iron Saturation 37 % (15-50) Unsaturated Iron Binding 62 ug/dL (112-346) L Ferritin 698 NG/ML (8-388) H Total Creatine Kinase 27 U/L (26-308) Vitamin B12 Level 535 PG/ML (193-986) Folate 11.4 NG/ML (8.6-58.9) Thyroid Stimulating Hormone (TSH) 4.083 uiU/mL (0.358-3.740) Ernestina James MD Aug 26, 2017 11:04
[2017-08-26 12:00] VITALS: BP 127/73
--- NOTE | 2017-08-26 15:03 | Infectious Diseases Prog Note ---
Assessment/Plan Assessment/Plan ASSESSMENT: The patient is a 62-year-old male with: Fever, resolved- - ? due to mucous plug vs parapneumonic effusion; and to PICC line infection -HIDA scan neg -CXR 08/17: Interval expansion of the previously atelectatic right lung. Considerable infiltrate versus edema throughout the right lung. Increasing left basilar atelectasis and possibly infiltrate -CXR 08/16: Complete opacification right hemithorax. Probably due to atelectasis related to endobronchial occlusion at the level of the right mainstem bronchus. There may also be a significant component of pleural effusion. PICC line infection with CoNS, -repeat Bcx s/p removal of line so far NTD -Bcx 08/21 NTD -s/p removal PICC 08/18; s/p new pICC line 08/25 -Bcx 08/15 06/07 + PICC line, peripheral NTD; Bcx 08/18 : 2/4 CoNS; cath tip cx CoNS -echo 07/31: limited views, no obvious vegetations or significant valve abnormalities Recent Blood Cx: CoNS probable line infection (PICC from out side facility was removed on and replaced on 08/03 ) Complete opacification R lung- , much improved now, possibly due to mucous plug ; recurrent -CXR 08/22: Interim near complete opacification of the right lung, probably due to near complete right lung atelectasis, given evidence of bronchial occlusion and mediastinal shift indicating volume loss. Component of pleural fluid also possible,however.New or increased moderate left pleural effusion ? ventilatory-associated pneumonia Scx: MDR PSA (S gentamicin, Colistin), repeat sp cx 08/13 normal pipo- Low suspicion overall for TB CCT: Extensive interstitial opacities throughout the right lung as well as groundglass opacities. Large differential, suspect on the basis of pulmonary edema, particularly given evidence of edema elsewhere, but possibility of infection, including possible tuberculosis, should also be considered. Right lower lobe consolidation, may reflect pneumonia (chest x-ray:Considerably worse pleural and parenchymal disease on the right. Slightly worse in pleural and parenchymal disease on the left, over 3 days ) Influenza: Neg -AFB sp cx smear neg x3, cx p, MTB PCR neg -Blatomyces ab neg, CrAg neg, Histoplasma ID neg, CF not done due to anticomplement activity; Cocci ab pending -HIV ag/ab neg -TB spot + (suspect latent rather than active, final AFB cx pending), MTB PCR neg Multiple decubitus of lower extremity. Left heel unstageable decubitus (no purulent discharge.) probable osteo per bone scan -no wound cx obtained NM : flow, blood pool, static activity involving the calcaneal tuberosity on the left. 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 Evidence of anasarca, with generalized edema of the subcutaneous fat,retroperitoneal and mesenteric fat, trace ascites, small left pleural effusion. Possible wall thickening of proximal and mid transverse and ascending colon. Could represent colitis although possibly artifactual due to under distention. Very questionable wall thickening of the duodenum and proximal jejunum, if real could indicate duodenitis/enteritis and/or peptic ulcer disease. Gas bubbles in the anterior aspect of the right rectus abdominis muscle belly. Cholelithiasis. Diffusely somewhat prominent pancreas, probably baseline for this patient, but the possibility of acute pancreatitis should be considered. Scattered punctate microcalcifications may represent sequelae of chronic calcifying pancreatitis, versus arterial calcifications. Ectasia of the pancreatic duct could also indicate chronic calcified pancreatitis no definite pancreatic head mass, although evaluation for such is limited in the absence of IVcontrast US Borderline gallbladder wall thickening, more likely artifact due to underdistention than real. Diarrhea CT: ? wall thickening of proximal and mid transverse and ascending colon.duodenum and proximal jejunum, and probable acute pancreatitis should be considered. ? Clostridium difficile: Neg Pl effusion: exudate , Pr : 4.4 , cell count : P ro empyema 08/12 SP ultrasound-guided thoracentesis, of 400 cc BETSY Diabetes. Anemia. GERD. Hypertension. History of TBI. Seizure disorder PLAN: -For possible acute OM of L heel- will treat empirically, given no obtainable cultures, with IV Daptomycin and Ceftriaxone (abx d#/) and Flagyl #7/ ( additional anaerobic coverage of osteo ) (Vanco switched to Dapto given CoNS bacteremia on 08/15 from PICC line) 08/19 SP INH colistin for MDR PsA PNA 3/15 SP IV Vancomycin #4 3/13 SP Micafungin #5 / SP Meropenem #10 3/ SP IV Colistin #9 3/4 SP vancomycin d# 9 and Zosyn and Gent d# 4 3/ SP cefepime day # 5 -f/u repeat Bcx 08/21 Monitor chest x-ray f/u cocci ab, fungitell, AFB final cultures Discussed with RN. Subjective Allergies: Coded Allergies: No Known Allergies (Unverified , 07/31/17) Subjective afebrile repeat Bcx 08/21 NTD no leukoocytosis Objective Vital Signs Last 24 Hour Vital Signs Date Time Temp Pulse Resp B/P (MAP) Pulse Ox O2 Delivery O2 Flow Rate FiO2 08/26/17 12:48 93 6 30 08/26/17 12:00 98.8 92 20 127/73 99 Mechanical Ventilator 30 98.8 08/26/17 12:00 30 08/26/17 11:02 88 18 30 08/26/17 08:56 91 18 30 08/26/17 08:00 98.3 91 19 95/70 99 Mechanical Ventilator 30 98.3 08/26/17 08:00 30 08/26/17 08:00 90 08/26/17 06:46 90 19 30 08/26/17 05:27 86 18 30 08/26/17 04:00 30 08/26/17 04:00 98.0 91 18 127/73 100 Mechanical Ventilator 30 98.0 08/26/17 04:00 91 08/26/17 03:28 92 18 30 08/26/17 01:20 89 18 30 08/26/17 00:00 87 08/26/17 00:00 98.1 88 20 128/73 100 Mechanical Ventilator 30 98.1 08/25/17 23:08 86 20 30 08/25/17 21:11 87 18 30 08/25/17 20:00 30 08/25/17 20:00 86 08/25/17 20:00 97.7 85 18 124/73 100 Mechanical Ventilator 30 97.7 08/25/17 19:11 87 23 30 08/25/17 16:31 85 18 30 08/25/17 16:00 98.7 84 18 121/77 100 Mechanical Ventilator 30 98.7 08/25/17 16:00 30 08/25/17 16:00 86 08/25/17 15:22 84 18 30 Height (Feet): 6 Height (Inches): 0.00 Weight (Pounds): 135 Objective HEENT: atraumatic Neck: full ROM Heart: HR/BP stable, HR/BP unstable Abdomen: soft, active bowel sounds, feeding tube Extremities: no C/C/E Decubiti: location Laboratory Tests Test 08/26/17 05:00 Reticulocyte Count 2.3 % (0.0-2.0) H Haptoglobin Pending PTT Mixing Study Pending APTT Patient/Control Mix Pending Mix PTT Incubation Time Pending Mix PTT Normal/Saline 1:1 Immediate Pending Thrombin Time Normal Plasma Pending Uric Acid 3.6 MG/DL (2.6-7.2) Iron Level 37 ug/dL (50-175) L Total Iron Binding Capacity 99 ug/dL (250-450) L Percent Iron Saturation 37 % (15-50) Unsaturated Iron Binding 62 ug/dL (112-346) L Ferritin 698 NG/ML (8-388) H Total Creatine Kinase 27 U/L (26-308) Vitamin B12 Level 535 PG/ML (193-986) Folate 11.4 NG/ML (8.6-58.9) Thyroid Stimulating Hormone (TSH) 4.083 uiU/mL (0.358-3.740) Current Medications Medications (Trade) Dose Ordered Sig/Serena Route PRN Reason Start Time Stop Time Status Last Admin Dose Admin Acetaminophen (Tylenol) 650 mg Q4H PRN GT Mild Pain/Temp > 100.5 08/11/17 20:45 09/10/17 20:44 08/20/17 20:27 Amiodarone HCl (Cordarone) 200 mg EVERY 12 HOURS GT 07/31/17 21:00 08/30/17 20:59 08/26/17 08:54 Ceftriaxone Sodium 2 gm/ Sodium Chloride 55 ml @ 110 mls/hr Q24H IVPB 08/15/17 21:00 08/29/17 20:59 08/25/17 22:17 Chlorhexidine Gluconate (Ngoc-Hex 2%) 1 applic DAILY@2000 TOPIC 08/24/17 20:00 09/23/17 19:59 08/25/17 22:15 Daptomycin 400 mg/ Sodium Chloride 55 ml @ 100 mls/hr Q24H IV 08/18/17 17:00 08/30/17 16:59 08/25/17 18:01 Dextrose (Dextrose 50%) STAT PRN IV Hypoglycemia 07/31/17 17:00 08/30/17 16:59 Heparin Sodium (Porcine) (Heparin 5000 units/ml) 5,000 units EVERY 12 HOURS SUBQ 07/31/17 21:00 08/30/17 20:59 08/26/17 08:56 Levetiracetam (Keppra) 250 mg BID GT 07/31/17 18:00 08/30/17 17:59 08/26/17 08:54 Metronidazole (Flagyl) 500 mg Q8HR ORAL 08/20/17 14:00 08/27/17 13:59 08/26/17 13:41 Ondansetron HCl (Zofran) 4 mg Q6H PRN IVP Nausea & Vomiting 07/31/17 17:00 08/30/17 16:59 Pantoprazole (Protonix) 40 mg DAILY IV 08/01/17 09:00 08/31/17 08:59 08/26/17 08:53 Phenytoin (Dilantin) 100 mg Q12HR GT 08/09/17 16:00 09/08/17 15:59 08/26/17 08:54 Polyethylene Glycol (Miralax) 17 gm DAILYPRN PRN ORAL Constipation 07/31/17 17:00 08/30/17 16:59 Francisca Bullock M.D. Aug 26, 2017 15:03
[2017-08-26 16:00] VITALS: BP 134/81
[2017-08-26 20:00] VITALS: BP 118/73
[2017-08-26] MEDS: Dyna-Hex 2% Top Sol 2oz TOPIC SCH (21:45)
[2017-08-26] MEDS: cefTRIAXone 2 GM in NS 55 ML IVPB SCH (21:47)
[2017-08-27] VITALS: BP 122/78
[2017-08-27 04:00] VITALS: BP 126/75
[2017-08-27] MEDS: metroNIDAZOLE 500mg tab ORAL SCH ×3 (06:09→22:05)
--- NOTE | 2017-08-27 07:34 | Pulmonology Progress Note ---
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 pleural effusion s/p thoracentesis-400cc Dysphagia, feeding by G-tube seizure disorder functional quadriplegia multiple decub POA: sacral, L heel DM HTN anemia of chronic disease PLAN OF CARE FARZANA vent/trach care, last CXR 08/[address] chest done prior pulmonary toilet, suctioning, sputum AFB x 3 negative, fungal serology negative TB spot + low suspicion for TB, per ID suspect latent rather than active PICC removed Last blood cx 08/21 negative New PICC 08/25 inserted abx per ID management prob VAP, sputum cx + Pseudomonas MDR, influenza negative, bone scan + high suspicion for acute OM L calcaneus, will need long-term abx - per ID management' ECHO with pEF [id number] and RVSP of 27 seizure precautions continue Keppra and Dilantin DVT GI prophylaxis Venous Duplex LE negative BP, BS monitoring and management HIDA negative bowel regimen monitor renal parameters, correct lyres as needed anemia w/up c/w anemia of chronic disease monitor HH, transfuse prn to keep Hgb above 7, heme follows wound care as per wound nurse recs podiatry eval noted and appreciated supportive care DNR/DNI status case discussed and evaluated by supervising physician Subjective Allergies: Coded Allergies: No Known Allergies (Unverified , 07/31/17) Subjective low grade fever this am, no signs of resp distress off isolation Objective Last 24 Hour Vital Signs Date Time Temp Pulse Resp B/P (MAP) Pulse Ox O2 Delivery O2 Flow Rate FiO2 08/27/17 06:48 94 19 30 08/27/17 05:17 95 19 30 08/27/17 04:00 98.5 91 18 126/75 99 Mechanical Ventilator 30 98.5 08/27/17 04:00 30 08/27/17 03:35 92 08/27/17 03:28 93 18 30 08/27/17 01:05 92 17 30 08/27/17 00:00 30 08/27/17 00:00 97.8 91 20 122/78 99 Mechanical Ventilator 30 97.8 08/26/17 23:39 91 08/26/17 23:02 91 17 30 08/26/17 21:30 93 19 30 08/26/17 20:00 97.9 92 18 118/73 99 Mechanical Ventilator 30 97.9 08/26/17 20:00 30 08/26/17 19:06 92 08/26/17 18:56 92 17 30 08/26/17 16:42 93 18 30 08/26/17 16:00 30 08/26/17 16:00 96 08/26/17 16:00 99.5 96 19 134/81 98 Mechanical Ventilator 30 99.5 08/26/17 15:19 96 08/26/17 14:39 91 16 30 08/26/17 12:48 93 16 30 08/26/17 12:00 98.8 92 20 127/73 99 Mechanical Ventilator 30 98.8 08/26/17 12:00 30 08/26/17 11:02 88 18 30 08/26/17 08:56 91 18 30 08/26/17 08:00 98.3 91 19 95/70 99 Mechanical Ventilator 30 98.3 08/26/17 08:00 30 08/26/17 08:00 90 Intake and Output 08/26/17 08/27/17 19:00 07:00 Intake Total 925 ml 600 ml Output Total 500 ml Balance 425 ml 600 ml Free Water 60 ml 100 ml IV Total 200 ml 55 ml Tube Feeding 605 ml 385 ml Other 60 ml 60 ml Output Urine Total 500 ml # Bowel Movements 4 1 Objective General Appearance: no acute distress, bedridden, vent dependent male in NAD on Vent AC 550-18-30% PEEP 5 HEENT: status post trach - Shiley#8, secretions small yellow, thin Respiratory/Chest: no respiratory distress, few isolated rhonchi Cardiovascular: normal rate, regular rhythm - SR on tele, PICC LUE intact Abdomen: normal bowel sounds, soft, non tender, G tube, Mishra Skin: L heel and sacral decub POA Neurologic/Psychiatric: abnormal gait, contracted, poorly responsive4 Laboratory Tests 08/27/17 03:00: Stool Occult Blood [Pending] Current Medications Medications (Trade) Dose Ordered Sig/Serena Route PRN Reason Start Time Stop Time Status Last Admin Dose Admin Acetaminophen (Tylenol) 650 mg Q4H PRN GT Mild Pain/Temp > 100.5 08/11/17 20:45 09/10/17 20:44 08/20/17 20:27 Amiodarone HCl (Cordarone) 200 mg EVERY 12 HOURS GT 07/31/17 21:00 08/30/17 20:59 08/26/17 21:45 Ceftriaxone Sodium 2 gm/ Sodium Chloride 55 ml @ 110 mls/hr Q24H IVPB 08/15/17 21:00 08/29/17 20:59 08/26/17 21:47 Chlorhexidine Gluconate (Ngoc-Hex 2%) 1 applic DAILY@2000 TOPIC 08/24/17 20:00 09/23/17 19:59 08/26/17 21:45 Daptomycin 400 mg/ Sodium Chloride 55 ml @ 100 mls/hr Q24H IV 08/27/17 10:00 09/03/17 09:59 Dextrose (Dextrose 50%) STAT PRN IV Hypoglycemia 07/31/17 17:00 08/30/17 16:59 Heparin Sodium (Porcine) (Heparin 5000 units/ml) 5,000 units EVERY 12 HOURS SUBQ 07/31/17 21:00 08/30/17 20:59 08/26/17 21:47 Levetiracetam (Keppra) 250 mg BID GT 07/31/17 18:00 08/30/17 17:59 08/26/17 18:08 Metronidazole (Flagyl) 500 mg Q8HR ORAL 08/20/17 14:00 09/02/17 13:59 08/27/17 06:09 Ondansetron HCl (Zofran) 4 mg Q6H PRN IVP Nausea & Vomiting 07/31/17 17:00 08/30/17 16:59 Pantoprazole (Protonix) 40 mg DAILY IV 08/01/17 09:00 08/31/17 08:59 08/26/17 08:53 Phenytoin (Dilantin) 100 mg Q12HR GT 08/09/17 16:00 09/08/17 15:59 08/26/17 21:45 Polyethylene Glycol (Miralax) 17 gm DAILYPRN PRN ORAL Constipation 07/31/17 17:00 08/30/17 16:59 Efe Weiner)Lizet NP Aug 27, 2017 07:34
[2017-08-27 08:00] VITALS: BP 130/78
[2017-08-27] MEDS: levETIRAcetam 500mg/5ml Liquid GT SCH ×2 (09:29→18:28)
[2017-08-27] MEDS: Pantoprazole Inj IV SCH (09:30)
[2017-08-27] MEDS: Phenytoin Susp 100mg/4ml GT SCH ×2 (09:30→22:05)
[2017-08-27] MEDS: Amiodarone 200mg tab GT SCH ×2 (09:30→22:05)
[2017-08-27] MEDS: Heparin 5000 units/ml inj SUBQ SCH ×2 (09:33→22:04)
[2017-08-27] MEDS ORDERED: Vancomycin 1gm in D5W 275ml IVPB ONE (10:00)
[2017-08-27] MEDS ORDERED: DAPTOmycin 400 MG in NS 55 ML IV SCH (10:00)
--- NOTE | 2017-08-27 11:14 | Infectious Diseases Prog Note ---
Assessment/Plan Assessment/Plan ASSESSMENT: The patient is a 62-year-old male with: Fever, resolved- - ? due to mucous plug vs parapneumonic effusion; and to PICC line infection -HIDA scan neg -CXR 08/17: Interval expansion of the previously atelectatic right lung. Considerable infiltrate versus edema throughout the right lung. Increasing left basilar atelectasis and possibly infiltrate -CXR 08/16: Complete opacification right hemithorax. Probably due to atelectasis related to endobronchial occlusion at the level of the right mainstem bronchus. There may also be a significant component of pleural effusion. PICC line infection with CoNS, -Bcx 08/21 Neg -s/p removal PICC 08/18; s/p new pICC line 08/25 -Bcx 08/15 1/ + PICC line, peripheral NTD; Bcx 08/18 : 2/4 CoNS; cath tip cx CoNS -echo 07/31: limited views, no obvious vegetations or significant valve abnormalities Recent Blood Cx: CoNS probable line infection (PICC from out side facility was removed on and replaced on 08/03 ) Complete opacification R lung- , much improved now, possibly due to mucous plug ; recurrent -CXR 08/22: Interim near complete opacification of the right lung, probably due to near complete right lung atelectasis, given evidence of bronchial occlusion and mediastinal shift indicating volume loss. Component of pleural fluid also possible,however.New or increased moderate left pleural effusion ? ventilatory-associated pneumonia Scx: MDR PSA (S gentamicin, Colistin), repeat sp cx 08/13 normal pipo- Low suspicion overall for TB CCT: Extensive interstitial opacities throughout the right lung as well as groundglass opacities. Large differential, suspect on the basis of pulmonary edema, particularly given evidence of edema elsewhere, but possibility of infection, including possible tuberculosis, should also be considered. Right lower lobe consolidation, may reflect pneumonia (chest x-ray:Considerably worse pleural and parenchymal disease on the right. Slightly worse in pleural and parenchymal disease on the left, over 3 days ) Influenza: Neg -AFB sp cx smear neg x3, cx p, MTB PCR neg -Blatomyces ab neg, CrAg neg, Histoplasma ID neg, CF not done due to anticomplement activity; Cocci ab pending -HIV ag/ab neg -TB spot + (suspect latent rather than active, final AFB cx pending), MTB PCR neg Multiple decubitus of lower extremity. Left heel unstageable decubitus (no purulent discharge.) probable osteo per bone scan -no wound cx obtained NM : flow, blood pool, static activity involving the calcaneal tuberosity on the left. 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 Evidence of anasarca, with generalized edema of the subcutaneous fat,retroperitoneal and mesenteric fat, trace ascites, small left pleural effusion. Possible wall thickening of proximal and mid transverse and ascending colon. Could represent colitis although possibly artifactual due to under distention. Very questionable wall thickening of the duodenum and proximal jejunum, if real could indicate duodenitis/enteritis and/or peptic ulcer disease. Gas bubbles in the anterior aspect of the right rectus abdominis muscle belly. Cholelithiasis. Diffusely somewhat prominent pancreas, probably baseline for this patient, but the possibility of acute pancreatitis should be considered. Scattered punctate microcalcifications may represent sequelae of chronic calcifying pancreatitis, versus arterial calcifications. Ectasia of the pancreatic duct could also indicate chronic calcified pancreatitis no definite pancreatic head mass, although evaluation for such is limited in the absence of IVcontrast US Borderline gallbladder wall thickening, more likely artifact due to underdistention than real. Diarrhea CT: ? wall thickening of proximal and mid transverse and ascending colon.duodenum and proximal jejunum, and probable acute pancreatitis should be considered. ? Clostridium difficile: Neg Pl effusion: exudate , Pr : 4.4 , cell count : P ro empyema 08/12 SP ultrasound-guided thoracentesis, of 400 cc BETSY Diabetes. Anemia. GERD. Hypertension. History of TBI. Seizure disorder PLAN: -For possible acute OM of L heel- will treat empirically, given no obtainable cultures, with IV Daptomycin 6mg/kg qd and Ceftriaxone 2g IV qd(abx d#) and Flagyl #/ (additional anaerobic coverage of osteo ) --Ok to switch back to IV Vancomycin on the hospital if not enough Daptomycin supply on pharmacy --ok to discharge on above regimen. (Vanco switched to Dapto given CoNS bacteremia on 08/15 from PICC line) 08/19 SP INH colistin 14/ for MDR PsA PNA 08/18 SP IV Vancomycin #4 3/13 SP Micafungin #5 3/ SP Meropenem #10 3/11 SP IV Colistin #9 3/4 SP vancomycin d# 9 and Zosyn and Gent d# 4 3/ SP cefepime day # 5 PICC line care Monitor chest x-ray f/u cocci ab, fungitell, AFB final cultures Discussed with RN. Subjective Allergies: Coded Allergies: No Known Allergies (Unverified , 07/31/17) Subjective afebrile repeat Bcx 08/21 Neg no leukoocytosis Objective Vital Signs Last 24 Hour Vital Signs Date Time Temp Pulse Resp B/P (MAP) Pulse Ox O2 Delivery O2 Flow Rate FiO2 08/27/17 09:05 92 18 30 08/27/17 08:00 99.7 92 18 130/78 97 Mechanical Ventilator 30 99.7 08/27/17 08:00 30 08/27/17 08:00 92 08/27/17 06:48 94 19 30 08/27/17 05:17 95 19 30 08/27/17 04:00 98.5 91 18 126/75 99 Mechanical Ventilator 30 98.5 08/27/17 04:00 30 08/27/17 03:35 92 08/27/17 03:28 93 18 30 08/27/17 01:05 92 17 30 08/27/17 00:00 30 08/27/17 00:00 97.8 91 20 122/78 99 Mechanical Ventilator 30 97.8 08/26/17 23:39 91 08/26/17 23:02 91 17 30 08/26/17 21:30 93 19 30 08/26/17 20:00 97.9 92 18 118/73 99 Mechanical Ventilator 30 97.9 08/26/17 20:00 30 08/26/17 19:06 92 08/26/17 18:56 92 17 30 08/26/17 16:42 93 18 30 08/26/17 16:00 30 08/26/17 16:00 96 08/26/17 16:00 99.5 96 19 134/81 98 Mechanical Ventilator 30 99.5 08/26/17 15:19 96 08/26/17 14:39 91 16 30 08/26/17 12:48 93 16 30 08/26/17 12:00 98.8 92 20 127/73 99 Mechanical Ventilator 30 98.8 08/26/17 12:00 30 Height (Feet): 6 Height (Inches): 0.00 Weight (Pounds): 135 Objective HEENT: atraumatic Neck: full ROM Heart: HR/BP stable, HR/BP unstable Abdomen: soft, active bowel sounds, feeding tube Extremities: no C/C/E Decubiti: location Laboratory Tests Test 08/27/17 03:00 Stool Occult Blood Pending Current Medications Medications (Trade) Dose Ordered Sig/Serena Route PRN Reason Start Time Stop Time Status Last Admin Dose Admin Acetaminophen (Tylenol) 650 mg Q4H PRN GT Mild Pain/Temp > 100.5 08/11/17 20:45 09/10/17 20:44 08/20/17 20:27 Amiodarone HCl (Cordarone) 200 mg EVERY 12 HOURS GT 07/31/17 21:00 08/30/17 20:59 08/27/17 09:30 Ceftriaxone Sodium 2 gm/ Sodium Chloride 55 ml @ 110 mls/hr Q24H IVPB 08/15/17 21:00 08/29/17 20:59 08/26/17 21:47 Chlorhexidine Gluconate (Ngoc-Hex 2%) 1 applic DAILY@2000 TOPIC 08/24/17 20:00 09/23/17 19:59 08/26/17 21:45 Daptomycin 400 mg/ Sodium Chloride 55 ml @ 100 mls/hr Q24H IV 08/27/17 10:00 09/03/17 09:59 Dextrose (Dextrose 50%) STAT PRN IV Hypoglycemia 07/31/17 17:00 08/30/17 16:59 Heparin Sodium (Porcine) (Heparin 5000 units/ml) 5,000 units EVERY 12 HOURS SUBQ 07/31/17 21:00 08/30/17 20:59 08/27/17 09:33 Levetiracetam (Keppra) 250 mg BID GT 07/31/17 18:00 08/30/17 17:59 08/27/17 09:29 Metronidazole (Flagyl) 500 mg Q8HR ORAL 08/20/17 14:00 09/02/17 13:59 08/27/17 06:09 Ondansetron HCl (Zofran) 4 mg Q6H PRN IVP Nausea & Vomiting 07/31/17 17:00 08/30/17 16:59 Pantoprazole (Protonix) 40 mg DAILY IV 08/01/17 09:00 08/31/17 08:59 08/27/17 09:30 Phenytoin (Dilantin) 100 mg Q12HR GT 08/09/17 16:00 09/08/17 15:59 08/27/17 09:30 Polyethylene Glycol (Miralax) 17 gm DAILYPRN PRN ORAL Constipation 07/31/17 17:00 08/30/17 16:59 Francisca Bullock M.D. Aug 27, 2017 11:14
[2017-08-27 12:00] VITALS: BP 127/74
[2017-08-27] MEDS ORDERED: Albuterol/Ipratropium 3ml neb HHN PRN (12:45)
[2017-08-27] MEDS ORDERED: cefTRIAXone 2 GM in D5W 110 ML IVPB SCH (13:45)
[2017-08-27 16:00] VITALS: BP 116/74
[2017-08-27 20:00] VITALS: BP 120/69
--- NOTE | 2017-08-27 22:03 | General Progress Note ---
Assessment/Plan Assessment/Plan 1. Anemia of chronic disease. --> ESR 134. --> Anemia workup reviewed. --> Iron 37, TIBC 99, Vit B12 535, Folate 11.4 --> Transfuse if hgb <7 2. Leukocytosis, likely secondary to infection, has since improved. --> On antibiotics. --> Monitor and trend 3. Coagulopathy. Consider vitamin K intake. Imaging reviewed. --> Prominent pancreas, calcification is noted. 4. Dysphagia, status post percutaneous endoscopic gastrostomy tube. 5. Cholelithiasis is noted on ultrasound. Borderline diabetic --> HIDA scan is negative. 6. Transaminitis has since improved, potentially secondary to medications. Subjective Date patient seen: Aug 26, 2017 Constitutional: Denies: no symptoms, chills, diaphoresis, fever, malaise, weakness, other HEENT: Denies: no symptoms, eye pain, blurred vision, tearing, double vision, ear pain, ear discharge, nose pain, nose congestion, throat pain, throat swelling, mouth pain, mouth swelling, other Cardiovascular: Denies: no symptoms, chest pain, edema, irregular heart rate, lightheadedness, palpitations, syncope, other Respiratory: Denies: no symptoms, cough, orthopnea, shortness of breath, SOB with excertion, SOB at rest, sputum, stridor, wheezing, other Gastrointestinal/Abdominal: Denies: no symptoms, abdomen distended, abdominal pain, black stools, tarry stools, blood in stool, constipated, diarrhea, difficulty swallowing, nausea, poor appetite, poor fluid intake, rectal bleeding , vomiting, other Genitourinary: Denies: no symptoms, burning, discharge, frequency, flank pain, hematuria, incontinence, pain, urgency, other Neurologic/Psychiatric: Denies: no symptoms, anxiety, depressed, emotional problems, headache, numbness, paresthesia, pre-existing deficit, seizure, tingling, tremors, weakness, other Hematologic/Lymphatic: Reports: anemia Allergies: Coded Allergies: No Known Allergies (Unverified , 07/31/17) Subjective No hematochezia. Ongoing antibiotics. Objective Last 24 Hour Vital Signs Date Time Temp Pulse Resp B/P (MAP) Pulse Ox O2 Delivery O2 Flow Rate FiO2 08/27/17 20:39 84 18 30 08/27/17 18:41 84 18 30 08/27/17 16:53 87 19 30 08/27/17 16:00 30 08/27/17 16:00 89 08/27/17 16:00 98.2 90 18 116/74 98 Mechanical Ventilator 30 98.2 08/27/17 14:52 84 19 30 08/27/17 12:52 90 18 30 08/27/17 12:00 99.3 90 18 127/74 99 Mechanical Ventilator 30 99.3 08/27/17 12:00 30 08/27/17 11:47 89 08/27/17 11:34 89 18 30 08/27/17 09:05 92 18 30 08/27/17 08:00 99.7 92 18 130/78 97 Mechanical Ventilator 30 99.7 08/27/17 08:00 30 08/27/17 08:00 92 08/27/17 06:48 94 19 30 08/27/17 05:17 95 19 30 08/27/17 04:00 98.5 91 18 126/75 99 Mechanical Ventilator 30 98.5 08/27/17 04:00 30 08/27/17 03:35 92 08/27/17 03:28 93 18 30 08/27/17 01:05 92 17 30 08/27/17 00:00 30 08/27/17 00:00 97.8 91 20 122/78 99 Mechanical Ventilator 30 97.8 08/26/17 23:39 91 08/26/17 23:02 91 17 30 08/26/17 21:30 93 19 30 Intake and Output 08/26/17 08/27/17 19:00 07:00 Intake Total 925 ml 600 ml Output Total 500 ml Balance 425 ml 600 ml Free Water 60 ml 100 ml IV Total 200 ml 55 ml Tube Feeding 605 ml 385 ml Other 60 ml 60 ml Output Urine Total 500 ml # Bowel Movements 2 1 Laboratory Tests 08/27/17 03:00: Stool Occult Blood Negative Height (Feet): 6 Height (Inches): 0.00 Weight (Pounds): 135 General Appearance: no apparent distress Respiratory/Chest: decreased breath sounds Abdomen: soft López Vásquez MD Aug 27, 2017 22:03
--- NOTE | 2017-08-27 22:04 | General Progress Note ---
Assessment/Plan Assessment/Plan 1. Anemia of chronic disease. --> ESR 134. --> Anemia workup reviewed. --> Iron 37, TIBC 99, Vit B12 535, Folate 11.4 --> Transfuse if hgb <7 --> Blood transfusion not required unless symptomatic or hgb below goal. 2. Leukocytosis, likely secondary to infection, has since improved. --> On antibiotics. --> Monitor and trend cbc 3. Coagulopathy. Consider vitamin K intake. Imaging reviewed. --> Prominent pancreas, calcification is noted. --> On anticoagulation -- heparin 4. Dysphagia, status post percutaneous endoscopic gastrostomy tube. 5. Cholelithiasis is noted on ultrasound. Borderline diabetic --> HIDA scan is negative. 6. Transaminitis has since improved, potentially secondary to medications. Subjective Date patient seen: Aug 27, 2017 Constitutional: Denies: no symptoms, chills, diaphoresis, fever, malaise, weakness, other HEENT: Denies: no symptoms, eye pain, blurred vision, tearing, double vision, ear pain, ear discharge, nose pain, nose congestion, throat pain, throat swelling, mouth pain, mouth swelling, other Cardiovascular: Denies: no symptoms, chest pain, edema, irregular heart rate, lightheadedness, palpitations, syncope, other Respiratory: Denies: no symptoms, cough, orthopnea, shortness of breath, SOB with excertion, SOB at rest, sputum, stridor, wheezing, other Gastrointestinal/Abdominal: Denies: no symptoms, abdomen distended, abdominal pain, black stools, tarry stools, blood in stool, constipated, diarrhea, difficulty swallowing, nausea, poor appetite, poor fluid intake, rectal bleeding , vomiting, other Genitourinary: Denies: no symptoms, burning, discharge, frequency, flank pain, hematuria, incontinence, pain, urgency, other Neurologic/Psychiatric: Denies: no symptoms, anxiety, depressed, emotional problems, headache, numbness, paresthesia, pre-existing deficit, seizure, tingling, tremors, weakness, other Hematologic/Lymphatic: Reports: anemia Allergies: Coded Allergies: No Known Allergies (Unverified , 07/31/17) Subjective No hematochezia. Ongoing antibiotics and anticoagulation. NAD Objective Last 24 Hour Vital Signs Date Time Temp Pulse Resp B/P (MAP) Pulse Ox O2 Delivery O2 Flow Rate FiO2 08/27/17 20:39 84 18 30 08/27/17 18:41 84 18 30 08/27/17 16:53 87 19 30 08/27/17 16:00 30 08/27/17 16:00 89 08/27/17 16:00 98.2 90 18 116/74 98 Mechanical Ventilator 30 98.2 08/27/17 14:52 84 19 30 08/27/17 12:52 90 18 30 08/27/17 12:00 99.3 90 18 127/74 99 Mechanical Ventilator 30 99.3 08/27/17 12:00 30 08/27/17 11:47 89 08/27/17 11:34 89 18 30 08/27/17 09:05 92 18 30 08/27/17 08:00 99.7 92 18 130/78 97 Mechanical Ventilator 30 99.7 08/27/17 08:00 30 08/27/17 08:00 92 08/27/17 06:48 94 19 30 08/27/17 05:17 95 19 30 08/27/17 04:00 98.5 91 18 126/75 99 Mechanical Ventilator 30 98.5 08/27/17 04:00 30 08/27/17 03:35 92 08/27/17 03:28 93 18 30 08/27/17 01:05 92 17 30 08/27/17 00:00 30 08/27/17 00:00 97.8 91 20 122/78 99 Mechanical Ventilator 30 97.8 08/26/17 23:39 91 08/26/17 23:02 91 17 30 Intake and Output 08/26/17 08/27/17 19:00 07:00 Intake Total 925 ml 600 ml Output Total 500 ml Balance 425 ml 600 ml Free Water 60 ml 100 ml IV Total 200 ml 55 ml Tube Feeding 605 ml 385 ml Other 60 ml 60 ml Output Urine Total 500 ml # Bowel Movements 2 1 Laboratory Tests 08/27/17 03:00: Stool Occult Blood Negative Height (Feet): 6 Height (Inches): 0.00 Weight (Pounds): 135 General Appearance: no apparent distress Respiratory/Chest: decreased breath sounds Abdomen: soft López Vásquez MD Aug 27, 2017 22:04
[2017-08-27] MEDS: Dyna-Hex 2% Top Sol 2oz TOPIC SCH (22:05)
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
[2017-08-28] VITALS: BP 120/72
[2017-08-28 04:00] VITALS: BP 120/70
[2017-08-28 06:29] LABS: BASOPHILS % (AUTO) 0.7 % (0.0-2.0); EOSINOPHILS % (AUTO) 5.3 % (0.0-3.0); HEMATOCRIT 24.8 % (42.0-52.0); HEMOGLOBIN 8.3 G/DL (14.2-18.0); LYMPHOCYTES % (AUTO) 18.4 % (20.0-45.0); MEAN CORPUSCULAR VOLUME 86 FL (80-99); MONOCYTES % (AUTO) 5.6 % (1.0-10.0); PLATELET COUNT 498 K/UL (150-450); RED BLOOD COUNT 2.88 M/UL (4.70-6.10); RED CELL DISTRIBUTION WIDTH 16.3 % (11.6-14.8); WHITE BLOOD COUNT 11.1 K/UL (4.8-10.8)
[2017-08-28] MEDS: metroNIDAZOLE 500mg tab ORAL SCH ×3 (06:30→21:31)
[2017-08-28 06:47] LABS: ALANINE AMINOTRANSFERASE 12 U/L (12-78); ALBUMIN 1.8 G/DL (3.4-5.0); ALBUMIN/GLOBULIN RATIO 0.3 (1.0-2.7); ALKALINE PHOSPHATASE 181 U/L (46-116); ANION GAP 9 mmol/L (5-15); ASPARTATE AMINO TRANSFERASE 22 U/L (15-37); BILIRUBIN,TOTAL 0.2 MG/DL (0.2-1.0); BLOOD UREA NITROGEN 18 mg/dL (7-18); CALCIUM 8.4 MG/DL (8.5-10.1); CARBON DIOXIDE 23 MMOL/L (21-32); CHLORIDE 105 MMOL/L (98-107); POTASSIUM 4.1 MMOL/L (3.5-5.1); SODIUM 137 MMOL/L (136-145)
--- NOTE | 2017-08-28 07:50 | Pulmonology Progress Note ---
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 pleural effusion s/p thoracentesis-400cc Dysphagia, feeding by G-tube seizure disorder functional quadriplegia multiple decub POA: sacral, L heel DM HTN anemia of chronic disease PLAN OF CARE FARZANA vent/trach care, last CXR 08/[address] chest done prior pulmonary toilet, suctioning, sputum AFB x 3 negative, fungal serology negative TB spot + low suspicion for TB, per ID suspect latent rather than active PICC removed Last blood cx 08/21 negative New PICC 08/25 inserted abx per ID management prob VAP, sputum cx + Pseudomonas MDR, influenza negative, bone scan + high suspicion for acute OM L calcaneus, will need chcf abx - per ID management' ECHO with pEF [id number] and RVSP of 27 seizure precautions continue Keppra and Dilantin DVT GI prophylaxis Venous Duplex LE negative BP, BS monitoring and management HIDA negative bowel regimen monitor renal parameters, correct lyres as needed anemia w/up c/w anemia of chronic disease monitor HH, transfuse prn to keep Hgb above 7, heme follows wound care as per wound nurse recs podiatry eval noted and appreciated supportive care DNR/DNI status case discussed and evaluated by supervising physician Subjective Allergies: Coded Allergies: No Known Allergies (Unverified , 07/31/17) Subjective low grade fever this am, mild leukocytosis no signs of resp distress on current settings off isolation Objective Last 24 Hour Vital Signs Date Time Temp Pulse Resp B/P (MAP) Pulse Ox O2 Delivery O2 Flow Rate FiO2 08/28/17 06:00 30 08/28/17 04:52 90 19 30 08/28/17 04:00 30 08/28/17 04:00 99.0 83 20 120/70 99 Mechanical Ventilator 30 99.0 08/28/17 03:42 86 08/28/17 02:34 86 18 30 08/28/17 00:54 85 18 30 08/28/17 00:00 30 08/28/17 00:00 99.0 84 18 120/72 99 Mechanical Ventilator 30 99.0 08/27/17 23:51 86 08/27/17 23:33 86 18 Mechanical Ventilator 30 08/27/17 22:35 86 18 30 08/27/17 20:39 84 18 30 08/27/17 20:00 30 08/27/17 20:00 85 08/27/17 20:00 98.1 86 18 120/69 100 Mechanical Ventilator 30 98.1 08/27/17 18:41 84 18 30 08/27/17 16:53 87 19 30 08/27/17 16:00 30 08/27/17 16:00 89 08/27/17 16:00 98.2 90 18 116/74 98 Mechanical Ventilator 30 98.2 08/27/17 14:52 84 19 30 08/27/17 12:52 90 18 30 08/27/17 12:00 99.3 90 18 127/74 99 Mechanical Ventilator 30 99.3 08/27/17 12:00 30 08/27/17 11:47 89 08/27/17 11:34 89 18 30 08/27/17 09:05 92 18 30 08/27/17 08:00 99.7 92 18 130/78 97 Mechanical Ventilator 30 99.7 08/27/17 08:00 30 08/27/17 08:00 92 Intake and Output 08/27/17 08/28/17 19:00 07:00 Intake Total 665 ml 665 ml Output Total 500 ml 600 ml Balance 165 ml 65 ml IV Total 55 ml Tube Feeding 550 ml 550 ml Other 60 ml 115 ml Output Urine Total 500 ml 600 ml # Bowel Movements 1 1 Objective General Appearance: no acute distress, bedridden, vent dependent male in NAD on Vent AC 550-18-30% PEEP 5 HEENT: status post trach with Shiley#8, secretions small yellow, thin Respiratory/Chest: no respiratory distress, few scattered rhonchi Cardiovascular: normal rate, regular rhythm - SR on tele, PICC LUE intact Abdomen: normal bowel sounds, soft, non tender, G tube, Mishra Skin: L heel and sacral decub POA Neurologic/Psychiatric: abnormal gait, contracted, poorly responsive Laboratory Tests 08/28/17 05:00: White Blood Count 11.1H, Red Blood Count 2.88L, Hemoglobin 8.3L, Hematocrit 24.8L, Mean Corpuscular Volume 86, Mean Corpuscular Hemoglobin 29.0, Mean Corpuscular Hemoglobin Concent 33.6, Red Cell Distribution Width 16.3H, Platelet Count 498H, Mean Platelet Volume 6.6, Neutrophils (%) (Auto) 70.0, Lymphocytes (%) (Auto) 18.4L, Monocytes (%) (Auto) 5.6, Eosinophils (%) (Auto) 5.3H, Basophils (%) (Auto) 0.7, Sodium Level 137, Potassium Level 4.1, Chloride Level 105, Carbon Dioxide Level 23, Anion Gap 9, Blood Urea Nitrogen 18, Creatinine 1.0, Estimat Glomerular Filtration Rate > 60, Glucose Level 117H, Calcium Level 8.4L, Total Bilirubin 0.2, Aspartate Amino Transf (AST/SGOT) 22, Alanine Aminotransferase (ALT/SGPT) 12, Alkaline Phosphatase 181H, Total Protein 8.2, Albumin 1.8L, Globulin 6.4, Albumin/Globulin Ratio 0.3L Current Medications Medications (Trade) Dose Ordered Sig/Serena Route PRN Reason Start Time Stop Time Status Last Admin Dose Admin Acetaminophen (Tylenol) 650 mg Q4H PRN GT Mild Pain/Temp > 100.5 08/11/17 20:45 09/10/17 20:44 08/20/17 20:27 Albuterol/ Ipratropium (Albuterol/ Ipratropium) 3 ml Q4H PRN HHN Shortness of Breath 08/27/17 12:45 09/01/17 12:44 Amiodarone HCl (Cordarone) 200 mg EVERY 12 HOURS GT 07/31/17 21:00 08/30/17 20:59 08/27/17 22:05 Ceftriaxone Sodium 2 gm/ Dextrose 110 ml @ 220 mls/hr Q24H IVPB 08/28/17 12:00 09/04/17 11:59 Chlorhexidine Gluconate (Ngoc-Hex 2%) 1 applic DAILY@2000 TOPIC 08/24/17 20:00 09/23/17 19:59 08/27/17 22:05 Daptomycin 400 mg/ Sodium Chloride 110 ml @ 200 mls/hr Q24H IV 08/29/17 10:00 09/05/17 09:59 Dextrose (Dextrose 50%) STAT PRN IV Hypoglycemia 07/31/17 17:00 08/30/17 16:59 Heparin Sodium (Porcine) (Heparin 5000 units/ml) 5,000 units EVERY 12 HOURS SUBQ 07/31/17 21:00 08/30/17 20:59 08/27/17 22:04 Levetiracetam (Keppra) 250 mg BID GT 07/31/17 18:00 08/30/17 17:59 08/27/17 18:28 Metronidazole (Flagyl) 500 mg Q8HR ORAL 08/20/17 14:00 09/02/17 13:59 08/28/17 06:30 Ondansetron HCl (Zofran) 4 mg Q6H PRN IVP Nausea & Vomiting 07/31/17 17:00 08/30/17 16:59 Pantoprazole (Protonix) 40 mg DAILY IV 08/01/17 09:00 08/31/17 08:59 08/27/17 09:30 Phenytoin (Dilantin) 100 mg Q12HR GT 08/09/17 16:00 09/08/17 15:59 08/27/17 22:05 Polyethylene Glycol (Miralax) 17 gm DAILYPRN PRN ORAL Constipation 07/31/17 17:00 08/30/17 16:59 Vancomycin HCl 1 gm/Dextrose 275 ml @ 183.708 mls/hr ONCE ONCE IVPB 08/28/17 10:00 08/28/17 11:29 Efe (Becky)Lizet NP Aug 28, 2017 07:50
[2017-08-28 08:00] VITALS: BP 123/69
[2017-08-28] MEDS ORDERED: Miralax 17gm pkt ORAL PRN (08:00)
[2017-08-28] MEDS: Amiodarone 200mg tab GT SCH ×2 (09:54→21:31)
[2017-08-28] MEDS: levETIRAcetam 500mg/5ml Liquid GT SCH ×2 (09:54→17:06)
[2017-08-28] MEDS: Phenytoin Susp 100mg/4ml GT SCH ×2 (09:54→21:31)
[2017-08-28] MEDS: Heparin 5000 units/ml inj SUBQ SCH ×2 (09:58→21:33)
[2017-08-28] MEDS: Pantoprazole Inj IV SCH (09:58)
[2017-08-28] MEDS ORDERED: Vancomycin 1gm in D5W 275ml IVPB ONE (10:00)
[2017-08-28] MEDS ORDERED: NS 275ml ONE ×4 (10:38→10:59)
[2017-08-28] MEDS ORDERED: Tubing IV Secondary IV ONE ×2 (10:38→10:54)
[2017-08-28] MEDS ORDERED: Sterile Water Irrig 1000ml IRRIG ONE ×3 (10:52→10:59)
[2017-08-28 12:00] VITALS: BP 104/63
[2017-08-28] MEDS: cefTRIAXone 2 GM in D5W 110 ML IVPB SCH (13:03)
[2017-08-28 16:00] VITALS: BP 123/71
[2017-08-28 20:00] VITALS: BP 112/71
[2017-08-28] MEDS: Dyna-Hex 2% Top Sol 2oz TOPIC SCH (21:31)
--- NOTE | 2017-08-28 23:57 | General Progress Note ---
Assessment/Plan Assessment/Plan 1. Anemia of chronic disease. --> ESR 134. --> Anemia workup reviewed. --> Iron 37, TIBC 99, Vit B12 535, Folate 11.4 --> Transfuse if hgb <7 --> Blood transfusion not required unless symptomatic or hgb below goal. 2. Leukocytosis, likely secondary to infection, has since improved. --> On antibiotics. --> Monitor and trend cbc --> Levels worsened from yesterday. 3. Coagulopathy. Consider vitamin K intake. Imaging reviewed. --> Prominent pancreas, calcification is noted. --> On anticoagulation -- heparin 4. Dysphagia, status post percutaneous endoscopic gastrostomy tube. 5. Cholelithiasis is noted on ultrasound. Borderline diabetic --> HIDA scan is negative. 6. Transaminitis has since improved, potentially secondary to medications. Subjective Date patient seen: Aug 28, 2017 Constitutional: Denies: no symptoms, chills, diaphoresis, fever, malaise, weakness, other HEENT: Denies: no symptoms, eye pain, blurred vision, tearing, double vision, ear pain, ear discharge, nose pain, nose congestion, throat pain, throat swelling, mouth pain, mouth swelling, other Cardiovascular: Denies: no symptoms, chest pain, edema, irregular heart rate, lightheadedness, palpitations, syncope, other Respiratory: Denies: no symptoms, cough, orthopnea, shortness of breath, SOB with excertion, SOB at rest, sputum, stridor, wheezing, other Gastrointestinal/Abdominal: Denies: no symptoms, abdomen distended, abdominal pain, black stools, tarry stools, blood in stool, constipated, diarrhea, difficulty swallowing, nausea, poor appetite, poor fluid intake, rectal bleeding , vomiting, other Genitourinary: Denies: no symptoms, burning, discharge, frequency, flank pain, hematuria, incontinence, pain, urgency, other Neurologic/Psychiatric: Denies: no symptoms, anxiety, depressed, emotional problems, headache, numbness, paresthesia, pre-existing deficit, seizure, tingling, tremors, weakness, other Hematologic/Lymphatic: Reports: anemia Allergies: Coded Allergies: No Known Allergies (Unverified , 07/31/17) Subjective On vent. Wbc count increased from yesterday. On antibiotics. Objective Last 24 Hour Vital Signs Date Time Temp Pulse Resp B/P (MAP) Pulse Ox O2 Delivery O2 Flow Rate FiO2 08/28/17 23:25 89 21 30 08/28/17 21:25 88 18 30 08/28/17 20:00 88 08/28/17 19:00 89 20 30 08/28/17 17:20 90 18 30 08/28/17 16:00 30 08/28/17 16:00 97.9 86 18 123/71 97 Mechanical Ventilator 30 97.9 08/28/17 15:36 86 08/28/17 15:08 86 18 30 08/28/17 13:19 86 18 30 08/28/17 12:00 30 08/28/17 12:00 98.2 85 18 104/63 97 Mechanical Ventilator 30 98.2 08/28/17 11:45 86 08/28/17 11:15 86 18 30 08/28/17 09:03 89 18 30 08/28/17 08:00 98.1 86 18 123/69 96 Mechanical Ventilator 30 98.1 08/28/17 08:00 30 08/28/17 07:53 86 08/28/17 06:32 87 19 30 08/28/17 06:00 30 08/28/17 04:52 90 19 30 08/28/17 04:00 30 08/28/17 04:00 99.0 83 20 120/70 99 Mechanical Ventilator 30 99.0 08/28/17 03:42 86 08/28/17 02:34 86 18 30 08/28/17 00:54 85 18 30 08/28/17 00:00 30 08/28/17 00:00 99.0 84 18 120/72 99 Mechanical Ventilator 30 99.0 Intake and Output 08/27/17 08/28/17 19:00 07:00 Intake Total 665 ml 665 ml Output Total 500 ml 600 ml Balance 165 ml 65 ml IV Total 55 ml Tube Feeding 550 ml 550 ml Other 60 ml 115 ml Output Urine Total 500 ml 600 ml # Bowel Movements 1 1 Laboratory Tests 08/28/17 05:00: White Blood Count 11.1H, Red Blood Count 2.88L, Hemoglobin 8.3L, Hematocrit 24.8L, Mean Corpuscular Volume 86, Mean Corpuscular Hemoglobin 29.0, Mean Corpuscular Hemoglobin Concent 33.6, Red Cell Distribution Width 16.3H, Platelet Count 498H, Mean Platelet Volume 6.6, Neutrophils (%) (Auto) 70.0, Lymphocytes (%) (Auto) 18.4L, Monocytes (%) (Auto) 5.6, Eosinophils (%) (Auto) 5.3H, Basophils (%) (Auto) 0.7, Sodium Level 137, Potassium Level 4.1, Chloride Level 105, Carbon Dioxide Level 23, Anion Gap 9, Blood Urea Nitrogen 18, Creatinine 1.0, Estimat Glomerular Filtration Rate > 60, Glucose Level 117H, Calcium Level 8.4L, Total Bilirubin 0.2, Aspartate Amino Transf (AST/SGOT) 22, Alanine Aminotransferase (ALT/SGPT) 12, Alkaline Phosphatase 181H, Total Protein 8.2, Albumin 1.8L, Globulin 6.4, Albumin/Globulin Ratio 0.3L Height (Feet): 6 Height (Inches): 0.00 Weight (Pounds): 124 General Appearance: confused Respiratory/Chest: decreased breath sounds Abdomen: soft Edema: trace edema López Vásquez MD Aug 28, 2017 23:57
[2017-08-29] VITALS: BP 121/74
[2017-08-29 04:00] VITALS: BP 108/69
[2017-08-29 04:45] LABS: BASOPHILS % (AUTO) 0.6 % (0.0-2.0); EOSINOPHILS % (AUTO) 5.7 % (0.0-3.0); HEMATOCRIT 24.2 % (42.0-52.0); HEMOGLOBIN 8.1 G/DL (14.2-18.0); LYMPHOCYTES % (AUTO) 17.5 % (20.0-45.0); MEAN CORPUSCULAR VOLUME 87 FL (80-99); MONOCYTES % (AUTO) 7.2 % (1.0-10.0); PLATELET COUNT 451 K/UL (150-450); RED CELL DISTRIBUTION WIDTH 16.8 % (11.6-14.8); WHITE BLOOD COUNT 9.9 K/UL (4.8-10.8)
[2017-08-29 05:16] LABS: ANION GAP 9 mmol/L (5-15); BLOOD UREA NITROGEN 28 mg/dL (7-18); CALCIUM 8.6 MG/DL (8.5-10.1); CARBON DIOXIDE 23 MMOL/L (21-32); CHLORIDE 103 MMOL/L (98-107); SODIUM 135 MMOL/L (136-145)
[2017-08-29] MEDS: metroNIDAZOLE 500mg tab ORAL SCH ×3 (06:36→21:41)
--- NOTE | 2017-08-29 07:50 | Pulmonology Progress Note ---
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 pleural effusion s/p thoracentesis-400cc Dysphagia, feeding by G-tube seizure disorder functional quadriplegia multiple decub POA: sacral, L heel DM HTN anemia of chronic disease PLAN OF CARE FARZANA vent/trach care, CXR pending for this am last CXR 08/[address] chest done prior pulmonary toilet, suctioning, sputum AFB x 3 negative, fungal serology negative TB spot + low suspicion for TB, per ID suspect latent rather than active PICC removed Last blood cx 08/21 negative New PICC 08/25 inserted abx per ID management prob VAP, sputum cx + Pseudomonas MDR, influenza negative, bone scan + high suspicion for acute OM L calcaneus, will need longterm abx - per ID management' ECHO with pEF [id number] and RVSP of 27 seizure precautions continue Keppra and Dilantin DVT GI prophylaxis Venous Duplex LE negative BP, BS monitoring and management HIDA negative bowel regimen monitor renal parameters, correct lyres as needed anemia w/up c/w anemia of chronic disease monitor HH, transfuse prn to keep Hgb above 7, heme follows wound care as per wound nurse recs podiatry eval noted and appreciated supportive care DNR/DNI status case discussed and evaluated by supervising physician Subjective Allergies: Coded Allergies: No Known Allergies (Unverified , 07/31/17) Subjective no fever no leukocytosis no signs of resp distress on current settings off isolation Objective Last 24 Hour Vital Signs Date Time Temp Pulse Resp B/P (MAP) Pulse Ox O2 Delivery O2 Flow Rate FiO2 08/29/17 07:04 95 18 30 08/29/17 05:01 89 18 30 08/29/17 04:00 87 08/29/17 04:00 97.7 88 18 108/69 98 Mechanical Ventilator 30 97.7 08/29/17 04:00 30 08/29/17 03:12 87 18 30 08/29/17 01:00 87 18 30 08/29/17 00:00 30 08/29/17 00:00 97.7 87 18 121/74 97 Mechanical Ventilator 30 97.7 08/28/17 23:25 89 21 30 08/28/17 21:25 88 18 30 08/28/17 20:00 30 08/28/17 20:00 88 08/28/17 20:00 97.9 89 18 112/71 97 Mechanical Ventilator 30 97.9 08/28/17 19:00 89 20 30 08/28/17 17:20 90 18 30 08/28/17 16:00 30 08/28/17 16:00 97.9 86 18 123/71 97 Mechanical Ventilator 30 97.9 08/28/17 15:36 86 08/28/17 15:08 86 18 30 08/28/17 13:19 86 18 30 08/28/17 12:00 30 08/28/17 12:00 98.2 85 18 104/63 97 Mechanical Ventilator 30 98.2 08/28/17 11:45 86 08/28/17 11:15 86 18 30 08/28/17 09:03 89 18 30 08/28/17 08:00 98.1 86 18 123/69 96 Mechanical Ventilator 30 98.1 08/28/17 08:00 30 08/28/17 07:53 86 Intake and Output 08/28/17 08/29/17 19:00 07:00 Intake Total 385.000 ml 430 ml Output Total 450 ml 700 ml Balance -65.000 ml -270 ml IV Total 385.000 ml Tube Feeding 330 ml Other 100 ml Output Urine Total 450 ml 700 ml # Bowel Movements 1 Objective General Appearance: no acute distress, bedridden, vent dependent male in NAD on Vent AC 550-18-30% PEEP 5 HEENT: status post trach with Shiley#[id number], secretions small yellow, thin Respiratory/Chest: no respiratory distress, few isolated rhonchi Cardiovascular: normal rate, regular rhythm - SR on tele, PICC LUE intact Abdomen: normal bowel sounds, soft, non tender, G tube, Mishra Skin: L heel and sacral decub POA Neurologic/Psychiatric: abnormal gait, contracted, poorly responsive Laboratory Tests 08/29/17 03:12: White Blood Count 9.9, Red Blood Count 2.80L, Hemoglobin 8.1L, Hematocrit 24.2L , Mean Corpuscular Volume 87, Mean Corpuscular Hemoglobin 29.0, Mean Corpuscular Hemoglobin Concent 33.6, Red Cell Distribution Width 16.8H, Platelet Count 451H, Mean Platelet Volume 6.4L, Neutrophils (%) (Auto) 69.0, Lymphocytes (%) (Auto) 17.5L, Monocytes (%) (Auto) 7.2, Eosinophils (%) (Auto) 5.7H, Basophils (%) (Auto) 0.6, Sodium Level 135L, Potassium Level 4.0, Chloride Level 103, Carbon Dioxide Level 23, Anion Gap 9, Blood Urea Nitrogen 28H, Creatinine 1.0, Estimat Glomerular Filtration Rate > 60, Glucose Level 108H , Calcium Level 8.6 Current Medications Medications (Trade) Dose Ordered Sig/Serena Route PRN Reason Start Time Stop Time Status Last Admin Dose Admin Acetaminophen (Tylenol) 650 mg Q4H PRN GT Mild Pain/Temp > 100.5 08/11/17 20:45 09/10/17 20:44 08/20/17 20:27 Albuterol/ Ipratropium (Albuterol/ Ipratropium) 3 ml Q4H PRN HHN Shortness of Breath 08/27/17 12:45 09/01/17 12:44 Amiodarone HCl (Cordarone) 200 mg EVERY 12 HOURS GT 08/28/17 09:00 09/27/17 09:00 08/28/17 21:31 Ceftriaxone Sodium 2 gm/ Dextrose 110 ml @ 220 mls/hr Q24H IVPB 08/28/17 12:00 09/04/17 11:59 08/28/17 13:03 Chlorhexidine Gluconate (Ngoc-Hex 2%) 1 applic DAILY@2000 TOPIC 08/24/17 20:00 09/23/17 19:59 08/28/17 21:31 Daptomycin 400 mg/ Sodium Chloride 110 ml @ 200 mls/hr Q24H IV 08/29/17 10:00 09/05/17 09:59 Dextrose (Dextrose 50%) STAT PRN IV Hypoglycemia 07/31/17 17:00 08/30/17 16:59 Heparin Sodium (Porcine) (Heparin 5000 units/ml) 5,000 units EVERY 12 HOURS SUBQ 08/28/17 09:00 09/27/17 09:00 08/28/17 21:33 Levetiracetam (Keppra) 250 mg BID GT 08/28/17 09:00 09/27/17 09:00 08/28/17 17:06 Metronidazole (Flagyl) 500 mg Q8HR ORAL 08/20/17 14:00 09/02/17 13:59 08/29/17 06:36 Ondansetron HCl (Zofran) 4 mg Q6H PRN IVP Nausea & Vomiting 08/28/17 08:30 09/27/17 08:29 Pantoprazole (Protonix) 40 mg DAILY IV 08/01/17 09:00 08/31/17 08:59 08/28/17 09:58 Phenytoin (Dilantin) 100 mg Q12HR GT 08/09/17 16:00 09/08/17 15:59 08/28/17 21:31 Polyethylene Glycol (Miralax) 17 gm DAILYPRN PRN ORAL Constipation 08/28/17 08:00 09/27/17 08:00 [facility] Aug 29, 2017 07:50
[2017-08-29 07:57] VITALS: BP 122/82
[2017-08-29] MEDS: Phenytoin Susp 100mg/4ml GT SCH ×2 (09:56→21:22)
[2017-08-29] MEDS: Amiodarone 200mg tab GT SCH ×2 (09:57→21:18)
[2017-08-29] MEDS: levETIRAcetam 500mg/5ml Liquid GT SCH ×2 (09:57→17:26)
[2017-08-29] MEDS: Pantoprazole Inj IV SCH (09:57)
[2017-08-29] MEDS: Heparin 5000 units/ml inj SUBQ SCH ×2 (09:58→21:19)
--- NOTE | 2017-08-29 10:56 | Diagnostic Imaging Report ---
Indication: Shortness of breath Technique: One view of the chest Comparison: 08/25/2017 Findings: There is been interval marked improvement of the previously demonstrated bilateral parenchymal disease, with only residual minimal hazy opacity present at the right lung base. Parenchymal opacities on the left have improved somewhat, but to a lesser extent than on the right, and considerable interstitial and airspace disease persists. There is probably significant pleural fluid on the left as well. Tracheostomy, left arm PICC again demonstrated, the latter making a short band at the tip. Impression: Markedly improved right and slightly improved left infiltrates versus edema, over 6 days Persistent left-sided pleural effusion Other findings as noted.
[2017-08-29] MEDS: DAPTOmycin 400 MG in NS 110 ML IV SCH (11:08)
--- NOTE | 2017-08-29 11:52 | Infectious Diseases Prog Note ---
Assessment/Plan Assessment/Plan ASSESSMENT: The patient is a 62-year-old male with: Fever, resolved- - ? due to mucous plug vs parapneumonic effusion; and to PICC line infection -HIDA scan neg -CXR 08/17: Interval expansion of the previously atelectatic right lung. Considerable infiltrate versus edema throughout the right lung. Increasing left basilar atelectasis and possibly infiltrate -CXR 08/16: Complete opacification right hemithorax. Probably due to atelectasis related to endobronchial occlusion at the level of the right mainstem bronchus. There may also be a significant component of pleural effusion. PICC line infection with CoNS, -Bcx 08/21 Neg -s/p removal PICC 08/18; s/p new pICC line 08/25 -Bcx 08/15 1/ + PICC line, peripheral NTD; Bcx 08/18 : 2/4 CoNS; cath tip cx CoNS -echo 07/31: limited views, no obvious vegetations or significant valve abnormalities Recent Blood Cx: CoNS probable line infection (PICC from out side facility was removed on and replaced on 08/03 ) Complete opacification R lung- , much improved now, possibly due to mucous plug ; recurrent -CXR 08/22: Interim near complete opacification of the right lung, probably due to near complete right lung atelectasis, given evidence of bronchial occlusion and mediastinal shift indicating volume loss. Component of pleural fluid also possible,however.New or increased moderate left pleural effusion ? ventilatory-associated pneumonia Scx: MDR PSA (S gentamicin, Colistin), repeat sp cx 08/13 normal pipo- Low suspicion overall for TB CCT: Extensive interstitial opacities throughout the right lung as well as groundglass opacities. Large differential, suspect on the basis of pulmonary edema, particularly given evidence of edema elsewhere, but possibility of infection, including possible tuberculosis, should also be considered. Right lower lobe consolidation, may reflect pneumonia (chest x-ray:Considerably worse pleural and parenchymal disease on the right. Slightly worse in pleural and parenchymal disease on the left, over 3 days ) Influenza: Neg -AFB sp cx smear neg x3, cx p, MTB PCR neg -Blatomyces ab neg, CrAg neg, Histoplasma ID neg, CF not done due to anticomplement activity; Cocci ab pending -HIV ag/ab neg -TB spot + (suspect latent rather than active, final AFB cx pending), MTB PCR neg Multiple decubitus of lower extremity. Left heel unstageable decubitus (no purulent discharge.) probable osteo per bone scan -no wound cx obtained NM : flow, blood pool, static activity involving the calcaneal tuberosity on the left. 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 Evidence of anasarca, with generalized edema of the subcutaneous fat,retroperitoneal and mesenteric fat, trace ascites, small left pleural effusion. Possible wall thickening of proximal and mid transverse and ascending colon. Could represent colitis although possibly artifactual due to under distention. Very questionable wall thickening of the duodenum and proximal jejunum, if real could indicate duodenitis/enteritis and/or peptic ulcer disease. Gas bubbles in the anterior aspect of the right rectus abdominis muscle belly. Cholelithiasis. Diffusely somewhat prominent pancreas, probably baseline for this patient, but the possibility of acute pancreatitis should be considered. Scattered punctate microcalcifications may represent sequelae of chronic calcifying pancreatitis, versus arterial calcifications. Ectasia of the pancreatic duct could also indicate chronic calcified pancreatitis no definite pancreatic head mass, although evaluation for such is limited in the absence of IVcontrast US Borderline gallbladder wall thickening, more likely artifact due to underdistention than real. Diarrhea CT: ? wall thickening of proximal and mid transverse and ascending colon.duodenum and proximal jejunum, and probable acute pancreatitis should be considered. ? Clostridium difficile: Neg Pl effusion: exudate , Pr : 4.4 , cell count : P ro empyema 08/12 SP ultrasound-guided thoracentesis, of 400 cc BETSY Diabetes. Anemia. GERD. Hypertension. History of TBI. Seizure disorder PLAN: -For possible acute OM of L heel- will treat empirically, given no obtainable cultures, with IV Daptomycin 6mg/kg qd and Ceftriaxone 2g IV qd(abx d#) and Flagyl #/ (additional anaerobic coverage of osteo ) --ok to discharge on above regimen. (Vanco switched to Dapto given CoNS bacteremia on 08/15 from PICC line) 08/19 SP INH colistin 14/14 for MDR PsA PNA 15 SP IV Vancomycin #4 3/13 SP Micafungin #5 3/12 SP Meropenem #10 3/11 SP IV Colistin #9 3/4 SP vancomycin d# 9 and Zosyn and Gent d# 4 3/ SP cefepime day # 5 PICC line care Monitor chest x-ray f/u cocci ab, fungitell, AFB final cultures Discussed with RN. Subjective Allergies: Coded Allergies: No Known Allergies (Unverified , 07/31/17) Subjective afebrile no leukoocytosis Objective Vital Signs Last 24 Hour Vital Signs Date Time Temp Pulse Resp B/P (MAP) Pulse Ox O2 Delivery O2 Flow Rate FiO2 08/29/17 10:36 93 24 30 08/29/17 09:06 95 27 30 08/29/17 08:00 30 08/29/17 07:57 94 08/29/17 07:57 97.9 97 26 122/82 97 Mechanical Ventilator 30 97.9 08/29/17 07:04 95 18 30 08/29/17 05:01 89 18 30 08/29/17 04:00 87 08/29/17 04:00 97.7 88 18 108/69 98 Mechanical Ventilator 30 97.7 08/29/17 04:00 30 08/29/17 03:12 87 18 30 08/29/17 01:00 87 18 30 08/29/17 00:00 30 08/29/17 00:00 97.7 87 18 121/74 97 Mechanical Ventilator 30 97.7 08/28/17 23:25 89 21 30 08/28/17 21:25 88 18 30 08/28/17 20:00 30 08/28/17 20:00 88 08/28/17 20:00 97.9 89 18 112/71 97 Mechanical Ventilator 30 97.9 08/28/17 19:00 89 20 30 08/28/17 17:20 90 18 30 08/28/17 16:00 30 08/28/17 16:00 97.9 86 18 123/71 97 Mechanical Ventilator 30 97.9 08/28/17 15:36 86 08/28/17 15:08 86 18 30 08/28/17 13:19 86 18 30 08/28/17 12:00 30 08/28/17 12:00 98.2 85 18 104/63 97 Mechanical Ventilator 30 98.2 Height (Feet): 6 Height (Inches): 0.00 Weight (Pounds): 131 Objective HEENT: atraumatic Neck: full ROM Heart: HR/BP stable, HR/BP unstable Abdomen: soft, active bowel sounds, feeding tube Extremities: no C/C/E Decubiti: location Laboratory Tests Test 08/29/17 03:12 White Blood Count 9.9 K/UL (4.8-10.8) Red Blood Count 2.80 M/UL (4.70-6.10) L Hemoglobin 8.1 G/DL (14.2-18.0) L Hematocrit 24.2 % (42.0-52.0) L Mean Corpuscular Volume 87 FL (80-99) Mean Corpuscular Hemoglobin 29.0 PG (27.0-31.0) Mean Corpuscular Hemoglobin Concent 33.6 G/DL (32.0-36.0) Red Cell Distribution Width 16.8 % (11.6-14.8) H Platelet Count 451 K/UL (150-450) H Mean Platelet Volume 6.4 FL (6.5-10.1) L Neutrophils (%) (Auto) 69.0 % (45.0-75.0) Lymphocytes (%) (Auto) 17.5 % (20.0-45.0) L Monocytes (%) (Auto) 7.2 % (1.0-10.0) Eosinophils (%) (Auto) 5.7 % (0.0-3.0) H Basophils (%) (Auto) 0.6 % (0.0-2.0) Sodium Level 135 MMOL/L (136-145) L Potassium Level 4.0 MMOL/L (3.5-5.1) Chloride Level 103 MMOL/L (98-107) Carbon Dioxide Level 23 MMOL/L (21-32) Anion Gap 9 mmol/L (5-15) Blood Urea Nitrogen 28 mg/dL (7-18) H Creatinine 1.0 MG/DL (0.55-1.30) Estimat Glomerular Filtration Rate > 60 mL/min (>60) Glucose Level 108 MG/DL (74-106) H Calcium Level 8.6 MG/DL (8.5-10.1) Current Medications Medications (Trade) Dose Ordered Sig/Serena Route PRN Reason Start Time Stop Time Status Last Admin Dose Admin Acetaminophen (Tylenol) 650 mg Q4H PRN GT Mild Pain/Temp > 100.5 08/11/17 20:45 09/10/17 20:44 08/20/17 20:27 Albuterol/ Ipratropium (Albuterol/ Ipratropium) 3 ml Q4H PRN HHN Shortness of Breath 08/27/17 12:45 09/01/17 12:44 Amiodarone HCl (Cordarone) 200 mg EVERY 12 HOURS GT 08/28/17 09:00 09/27/17 09:00 08/29/17 09:57 Ceftriaxone Sodium 2 gm/ Dextrose 110 ml @ 220 mls/hr Q24H IVPB 08/28/17 12:00 09/04/17 11:59 08/28/17 13:03 Chlorhexidine Gluconate (Ngoc-Hex 2%) 1 applic DAILY@2000 TOPIC 08/24/17 20:00 09/23/17 19:59 08/28/17 21:31 Daptomycin 400 mg/ Sodium Chloride 110 ml @ 200 mls/hr Q24H IV 08/29/17 10:00 09/05/17 09:59 08/29/17 11:08 Dextrose (Dextrose 50%) STAT PRN IV Hypoglycemia 07/31/17 17:00 08/30/17 16:59 Heparin Sodium (Porcine) (Heparin 5000 units/ml) 5,000 units EVERY 12 HOURS SUBQ 08/28/17 09:00 09/27/17 09:00 08/29/17 09:58 Levetiracetam (Keppra) 250 mg BID GT 08/28/17 09:00 09/27/17 09:00 08/29/17 09:57 Metronidazole (Flagyl) 500 mg Q8HR ORAL 08/20/17 14:00 09/02/17 13:59 08/29/17 06:36 Ondansetron HCl (Zofran) 4 mg Q6H PRN IVP Nausea & Vomiting 08/28/17 08:30 09/27/17 08:29 Pantoprazole (Protonix) 40 mg DAILY IV 08/01/17 09:00 3/28/18 08:59 08/29/17 09:57 Phenytoin (Dilantin) 100 mg Q12HR GT 08/09/17 16:00 09/08/17 15:59 08/29/17 09:56 Polyethylene Glycol (Miralax) 17 gm DAILYPRN PRN ORAL Constipation 08/28/17 08:00 09/27/17 08:00 Francisca Bullock M.D. Aug 29, 2017 11:52
[2017-08-29 12:00] VITALS: BP 120/77
[2017-08-29 13:16] LABS: APTT 1:1 MIX SALINE 48.6 sec (Not Estab.); APTT 1:1NP MIX 60M INCUBATION 27.5 sec (22.9-30.2)
[2017-08-29] MEDS: cefTRIAXone 2 GM in D5W 110 ML IVPB SCH (13:35)
[2017-08-29 16:00] VITALS: BP 137/77
[2017-08-29 20:00] VITALS: BP 122/77
[2017-08-29] MEDS: Dyna-Hex 2% Top Sol 2oz TOPIC SCH (20:02)
--- NOTE | 2017-08-29 23:59 | General Progress Note ---
Assessment/Plan Assessment/Plan 1. Anemia of chronic disease. --> ESR 134. Hemoglobin 8.1 --> Anemia workup reviewed. --> Iron 37, TIBC 99, Vit B12 535, Folate 11.4 --> Transfuse if hgb <7 --> Blood transfusion not required unless symptomatic or hgb below goal. 2. Leukocytosis, likely secondary to infection, has since improved. --> On antibiotics. --> Monitor and trend cbc --> Improved. 3. Coagulopathy. Consider vitamin K intake. Imaging reviewed. --> Prominent pancreas, calcification is noted. --> On anticoagulation -- heparin 4. Dysphagia, status post percutaneous endoscopic gastrostomy tube. 5. Cholelithiasis is noted on ultrasound. Borderline diabetic --> HIDA scan is negative. 6. Transaminitis has since improved, potentially secondary to medications. Subjective Date patient seen: Aug 29, 2017 Constitutional: Denies: no symptoms, chills, diaphoresis, fever, malaise, weakness, other HEENT: Denies: no symptoms, eye pain, blurred vision, tearing, double vision, ear pain, ear discharge, nose pain, nose congestion, throat pain, throat swelling, mouth pain, mouth swelling, other Cardiovascular: Denies: no symptoms, chest pain, edema, irregular heart rate, lightheadedness, palpitations, syncope, other Respiratory: Denies: no symptoms, cough, orthopnea, shortness of breath, SOB with excertion, SOB at rest, sputum, stridor, wheezing, other Gastrointestinal/Abdominal: Denies: no symptoms, abdomen distended, abdominal pain, black stools, tarry stools, blood in stool, constipated, diarrhea, difficulty swallowing, nausea, poor appetite, poor fluid intake, rectal bleeding , vomiting, other Genitourinary: Denies: no symptoms, burning, discharge, frequency, flank pain, hematuria, incontinence, pain, urgency, other Neurologic/Psychiatric: Denies: no symptoms, anxiety, depressed, emotional problems, headache, numbness, paresthesia, pre-existing deficit, seizure, tingling, tremors, weakness, other Hematologic/Lymphatic: Reports: anemia Allergies: Coded Allergies: No Known Allergies (Unverified , 07/31/17) Subjective On vent. Wbc count downtrended. No respiratory distress. Objective Last 24 Hour Vital Signs Date Time Temp Pulse Resp B/P (MAP) Pulse Ox O2 Delivery O2 Flow Rate FiO2 08/29/17 23:14 95 18 30 08/29/17 21:13 87 18 30 08/29/17 20:00 101 08/29/17 19:24 98 18 30 08/29/17 16:39 92 18 30 08/29/17 16:00 98.1 98 20 137/77 99 Mechanical Ventilator 30 98.1 08/29/17 16:00 30 08/29/17 15:14 96 08/29/17 14:39 95 18 30 08/29/17 12:25 94 18 30 08/29/17 12:00 98.2 97 18 120/77 98 Mechanical Ventilator 30 98.2 08/29/17 12:00 30 08/29/17 11:52 95 08/29/17 10:36 93 24 30 08/29/17 09:06 95 27 30 08/29/17 08:00 30 08/29/17 07:57 94 08/29/17 07:57 97.9 97 26 122/82 97 Mechanical Ventilator 30 97.9 08/29/17 07:04 95 18 30 08/29/17 05:01 89 18 30 08/29/17 04:00 87 08/29/17 04:00 97.7 88 18 108/69 98 Mechanical Ventilator 30 97.7 08/29/17 04:00 30 08/29/17 03:12 87 18 30 08/29/17 01:00 87 18 30 08/29/17 00:00 30 08/29/17 00:00 97.7 87 18 121/74 97 Mechanical Ventilator 30 97.7 Intake and Output 08/28/17 08/29/17 19:00 07:00 Intake Total 850.000 ml 430 ml Output Total 450 ml 700 ml Balance 400.000 ml -270 ml IV Total 385.000 ml Tube Feeding 385 ml 330 ml Other 80 ml 100 ml Output Urine Total 450 ml 700 ml # Bowel Movements 2 Laboratory Tests 08/29/17 03:12: White Blood Count 9.9, Red Blood Count 2.80L, Hemoglobin 8.1L, Hematocrit 24.2L , Mean Corpuscular Volume 87, Mean Corpuscular Hemoglobin 29.0, Mean Corpuscular Hemoglobin Concent 33.6, Red Cell Distribution Width 16.8H, Platelet Count 451H, Mean Platelet Volume 6.4L, Neutrophils (%) (Auto) 69.0, Lymphocytes (%) (Auto) 17.5L, Monocytes (%) (Auto) 7.2, Eosinophils (%) (Auto) 5.7H, Basophils (%) (Auto) 0.6, Sodium Level 135L, Potassium Level 4.0, Chloride Level 103, Carbon Dioxide Level 23, Anion Gap 9, Blood Urea Nitrogen 28H, Creatinine 1.0, Estimat Glomerular Filtration Rate > 60, Glucose Level 108H , Calcium Level 8.6 Height (Feet): 6 Height (Inches): 0.00 Weight (Pounds): 131 General Appearance: no apparent distress EENT: normal ENT inspection Respiratory/Chest: lungs clear Abdomen: soft López Vásquez MD Aug 29, 2017 23:59
[2017-08-30] VITALS: BP 127/80
[2017-08-30 04:00] VITALS: BP 120/70
[2017-08-30] MEDS: metroNIDAZOLE 500mg tab ORAL SCH ×3 (05:59→22:30)
[2017-08-30 06:16] LABS: ANION GAP 11 mmol/L (5-15); BLOOD UREA NITROGEN 31 mg/dL (7-18); CALCIUM 8.1 MG/DL (8.5-10.1); CARBON DIOXIDE 20 MMOL/L (21-32); CHLORIDE 102 MMOL/L (98-107); CREATININE 0.9 MG/DL (0.55-1.30); POTASSIUM 5.1 MMOL/L (3.5-5.1); SODIUM 133 MMOL/L (136-145)
--- NOTE | 2017-08-30 07:37 | Pulmonology Progress Note ---
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 pleural effusion s/p thoracentesis-400cc Dysphagia, feeding by G-tube seizure disorder functional quadriplegia multiple decub POA: sacral, L heel DM HTN anemia of chronic disease PLAN OF CARE FARZANA vent/trach care, last CXR 08/29 - Markedly improved right and slightly improved left infiltrates versus edema, over 6 days previous CXR 08/[address] chest done prior pulmonary toilet, suctioning, sputum AFB x 3 negative, fungal serology negative TB spot + low suspicion for TB, per ID suspect latent rather than active PICC removed Last blood cx 08/21 negative New PICC 08/25 inserted abx per ID management prob VAP, sputum cx + Pseudomonas MDR, influenza negative, bone scan + high suspicion for acute OM L calcaneus, will need assisted abx - per ID management' ECHO with pEF 60-655Z and RVSP of 27 seizure precautions continue Keppra and Dilantin DVT GI prophylaxis Venous Duplex LE negative BP, BS monitoring and management HIDA negative bowel regimen monitor renal parameters, correct lyres as needed anemia w/up c/w anemia of chronic disease monitor HH, transfuse prn to keep Hgb above 7, heme follows wound care as per wound nurse recs podiatry eval noted and appreciated supportive care DNR/DNI status dc plan need Department of Health clearance case discussed and evaluated by supervising physician Subjective Allergies: Coded Allergies: No Known Allergies (Unverified , 07/31/17) Subjective no fever no leukocytosis no signs of resp distress on current settings off isolation Objective Last 24 Hour Vital Signs Date Time Temp Pulse Resp B/P (MAP) Pulse Ox O2 Delivery O2 Flow Rate FiO2 08/30/17 07:19 99 18 30 08/30/17 05:10 92 18 30 08/30/17 04:00 98.2 89 20 120/70 100 Mechanical Ventilator 30 98.2 08/30/17 04:00 100 08/30/17 04:00 30 08/30/17 03:27 96 23 30 08/30/17 01:23 94 18 30 08/30/17 00:00 98.0 96 20 127/80 100 Mechanical Ventilator 30 98.0 08/30/17 00:00 97 08/30/17 00:00 30 08/29/17 23:14 95 18 30 08/29/17 21:13 87 18 30 08/29/17 20:00 98.1 101 20 122/77 99 Mechanical Ventilator 30 98.1 08/29/17 20:00 101 08/29/17 20:00 30 08/29/17 19:24 98 18 30 08/29/17 16:39 92 18 30 08/29/17 16:00 98.1 98 20 137/77 99 Mechanical Ventilator 30 98.1 08/29/17 16:00 30 08/29/17 15:14 96 08/29/17 14:39 95 18 30 08/29/17 12:25 94 18 30 08/29/17 12:00 98.2 97 18 120/77 98 Mechanical Ventilator 30 98.2 08/29/17 12:00 30 08/29/17 11:52 95 08/29/17 10:36 93 24 30 08/29/17 09:06 95 27 30 08/29/17 08:00 30 08/29/17 07:57 94 08/29/17 07:57 97.9 97 26 122/82 97 Mechanical Ventilator 30 97.9 Intake and Output 08/29/17 08/30/17 19:00 07:00 Intake Total 540 ml 495 ml Output Total 450 ml 700 ml Balance 90 ml -205 ml IV Total 220 ml Tube Feeding 220 ml 495 ml Other 100 ml Output Urine Total 450 ml 700 ml # Bowel Movements 2 Objective General Appearance: no acute distress, bedridden, vent dependent male in NAD on Vent AC 550-18-30% PEEP 5 HEENT: status post trach with Shiley#8, secretions small yellow, thin Respiratory/Chest: no respiratory distress, few isolated rhonchi Cardiovascular: normal rate, regular rhythm - SR on tele, PICC LUE intact Abdomen: normal bowel sounds, soft, non tender, G tube, Mishra Skin: L heel and sacral decub POA Neurologic/Psychiatric: abnormal gait, contracted, poorly responsive Laboratory Tests 08/30/17 05:15: Sodium Level 133L, Potassium Level 5.1, Chloride Level 102, Carbon Dioxide Level 20L, Anion Gap 11, Blood Urea Nitrogen 31H, Creatinine 0.9, Estimat Glomerular Filtration Rate > 60, Glucose Level 108H, Calcium Level 8.1L Current Medications Medications (Trade) Dose Ordered Sig/Serena Route PRN Reason Start Time Stop Time Status Last Admin Dose Admin Acetaminophen (Tylenol) 650 mg Q4H PRN GT Mild Pain/Temp > 100.5 08/11/17 20:45 09/10/17 20:44 08/20/17 20:27 Albuterol/ Ipratropium (Albuterol/ Ipratropium) 3 ml Q4H PRN HHN Shortness of Breath 08/27/17 12:45 09/01/17 12:44 Amiodarone HCl (Cordarone) 200 mg EVERY 12 HOURS GT 08/28/17 09:00 09/27/17 09:00 08/29/17 21:18 Ceftriaxone Sodium 2 gm/ Dextrose 110 ml @ 220 mls/hr Q24H IVPB 08/28/17 12:00 09/04/17 11:59 08/29/17 13:35 Chlorhexidine Gluconate (Ngoc-Hex 2%) 1 applic DAILY@2000 TOPIC 08/24/17 20:00 09/23/17 19:59 08/29/17 20:02 Daptomycin 400 mg/ Sodium Chloride 110 ml @ 200 mls/hr Q24H IV 08/29/17 10:00 09/05/17 09:59 08/29/17 11:08 Dextrose (Dextrose 50%) STAT PRN IV Hypoglycemia 07/31/17 17:00 08/30/17 16:59 Heparin Sodium (Porcine) (Heparin 5000 units/ml) 5,000 units EVERY 12 HOURS SUBQ 08/28/17 09:00 09/27/17 09:00 08/29/17 21:19 Levetiracetam (Keppra) 250 mg BID GT 08/28/17 09:00 09/27/17 09:00 08/29/17 17:26 Metronidazole (Flagyl) 500 mg Q8HR ORAL 08/20/17 14:00 09/02/17 13:59 08/30/17 05:59 Ondansetron HCl (Zofran) 4 mg Q6H PRN IVP Nausea & Vomiting 08/28/17 08:30 09/27/17 08:29 Pantoprazole (Protonix) 40 mg DAILY IV 08/01/17 09:00 08/31/17 08:59 08/29/17 09:57 Phenytoin (Dilantin) 100 mg Q12HR GT 08/09/17 16:00 09/08/17 15:59 08/29/17 21:22 Polyethylene Glycol (Miralax) 17 gm DAILYPRN PRN ORAL Constipation 08/28/17 08:00 09/27/17 08:00 Efe (Becky)Lizet NP Aug 30, 2017 07:37
[2017-08-30 08:00] VITALS: BP 146/81
[2017-08-30] MEDS: Pantoprazole Inj IV SCH (08:42)
[2017-08-30] MEDS: levETIRAcetam 500mg/5ml Liquid GT SCH ×2 (08:42→16:49)
[2017-08-30] MEDS: Amiodarone 200mg tab GT SCH ×2 (08:42→22:30)
[2017-08-30] MEDS: Phenytoin Susp 100mg/4ml GT SCH ×2 (08:42→22:30)
[2017-08-30] MEDS: Heparin 5000 units/ml inj SUBQ SCH ×2 (08:55→22:34)
[2017-08-30] MEDS ORDERED: DUONEB 0.5-3(2.53 ML HHN (09:01)
[2017-08-30] MEDS ORDERED: Albuterol/Ipratropium 3ml neb HHN PRN (09:05)
[2017-08-30] MEDS: DAPTOmycin 400 MG in NS 110 ML IV SCH (09:56)
[2017-08-30 11:34] LABS: BASOPHILS % (AUTO) 0.9 % (0.0-2.0); EOSINOPHILS % (AUTO) 3.9 % (0.0-3.0); HEMATOCRIT 30.1 % (42.0-52.0); HEMOGLOBIN 9.8 G/DL (14.2-18.0); LYMPHOCYTES % (AUTO) 16.2 % (20.0-45.0); MEAN CORPUSCULAR VOLUME 87 FL (80-99); MONOCYTES % (AUTO) 7.1 % (1.0-10.0); PLATELET COUNT 286 K/UL (150-450); RED BLOOD COUNT 3.46 M/UL (4.70-6.10); RED CELL DISTRIBUTION WIDTH 16.1 % (11.6-14.8); WHITE BLOOD COUNT 10.2 K/UL (4.8-10.8)
[2017-08-30 12:00] VITALS: BP 130/78
--- NOTE | 2017-08-30 12:06 | Infectious Diseases Prog Note ---
Assessment/Plan Assessment/Plan ASSESSMENT: The patient is a 62-year-old male with: Fever, resolved- - ? due to mucous plug vs parapneumonic effusion; and to PICC line infection -HIDA scan neg -CXR 08/17: Interval expansion of the previously atelectatic right lung. Considerable infiltrate versus edema throughout the right lung. Increasing left basilar atelectasis and possibly infiltrate -CXR 08/16: Complete opacification right hemithorax. Probably due to atelectasis related to endobronchial occlusion at the level of the right mainstem bronchus. There may also be a significant component of pleural effusion. PICC line infection with CoNS, -Bcx 08/21 Neg -s/p removal PICC 08/18; s/p new pICC line 08/25 -Bcx 08/15 1/ + PICC line, peripheral NTD; Bcx 08/18 : 2/4 CoNS; cath tip cx CoNS -echo 07/31: limited views, no obvious vegetations or significant valve abnormalities Recent Blood Cx: CoNS probable line infection (PICC from out side facility was removed on and replaced on 08/03 ) Complete opacification R lung- , much improved now, possibly due to mucous plug ; recurrent -CXR 08/22: Interim near complete opacification of the right lung, probably due to near complete right lung atelectasis, given evidence of bronchial occlusion and mediastinal shift indicating volume loss. Component of pleural fluid also possible,however.New or increased moderate left pleural effusion ? ventilatory-associated pneumonia Scx: MDR PSA (S gentamicin, Colistin), repeat sp cx 08/13 normal pipo- Low suspicion overall for TB CCT: Extensive interstitial opacities throughout the right lung as well as groundglass opacities. Large differential, suspect on the basis of pulmonary edema, particularly given evidence of edema elsewhere, but possibility of infection, including possible tuberculosis, should also be considered. Right lower lobe consolidation, may reflect pneumonia (chest x-ray:Considerably worse pleural and parenchymal disease on the right. Slightly worse in pleural and parenchymal disease on the left, over 3 days ) Influenza: Neg -AFB sp cx smear neg x3, cx p, MTB PCR neg -Blatomyces ab neg, CrAg neg, Histoplasma ID neg, CF not done due to anticomplement activity; Cocci ab pending -HIV ag/ab neg -TB spot + (suspect latent rather than active, final AFB cx pending), MTB PCR neg Multiple decubitus of lower extremity. Left heel unstageable decubitus (no purulent discharge.) probable osteo per bone scan -no wound cx obtained NM : flow, blood pool, static activity involving the calcaneal tuberosity on the left. 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 Evidence of anasarca, with generalized edema of the subcutaneous fat,retroperitoneal and mesenteric fat, trace ascites, small left pleural effusion. Possible wall thickening of proximal and mid transverse and ascending colon. Could represent colitis although possibly artifactual due to under distention. Very questionable wall thickening of the duodenum and proximal jejunum, if real could indicate duodenitis/enteritis and/or peptic ulcer disease. Gas bubbles in the anterior aspect of the right rectus abdominis muscle belly. Cholelithiasis. Diffusely somewhat prominent pancreas, probably baseline for this patient, but the possibility of acute pancreatitis should be considered. Scattered punctate microcalcifications may represent sequelae of chronic calcifying pancreatitis, versus arterial calcifications. Ectasia of the pancreatic duct could also indicate chronic calcified pancreatitis no definite pancreatic head mass, although evaluation for such is limited in the absence of IVcontrast US Borderline gallbladder wall thickening, more likely artifact due to underdistention than real. Diarrhea CT: ? wall thickening of proximal and mid transverse and ascending colon.duodenum and proximal jejunum, and probable acute pancreatitis should be considered. ? Clostridium difficile: Neg Pl effusion: exudate , Pr : 4.4 , cell count : P ro empyema 08/12 SP ultrasound-guided thoracentesis, of 400 cc BETSY Diabetes. Anemia. GERD. Hypertension. History of TBI. Seizure disorder PLAN: -For possible acute OM of L heel- will treat empirically, given no obtainable cultures, with IV Daptomycin 6mg/kg qd and Ceftriaxone 2g IV qd(abx d#) and Flagyl #11/ (additional anaerobic coverage of osteo ) --ok to discharge on above regimen. (Vanco switched to Dapto given CoNS bacteremia on 08/15 from PICC line) 08/19 SP INH colistin 14/14 for MDR PsA PNA 08/18 SP IV Vancomycin #4 3/13 SP Micafungin #5 3/12 SP Meropenem #10 3/11 SP IV Colistin #9 3/4 SP vancomycin d# 9 and Zosyn and Gent d# 4 3/ SP cefepime day # 5 PICC line care Monitor chest x-ray f/u cocci ab, fungitell, AFB final cultures Discussed with RN. Subjective Allergies: Coded Allergies: No Known Allergies (Unverified , 07/31/17) Subjective afebrile no leukoocytosis Objective Vital Signs Last 24 Hour Vital Signs Date Time Temp Pulse Resp B/P (MAP) Pulse Ox O2 Delivery O2 Flow Rate FiO2 08/30/17 11:33 97 19 30 08/30/17 08:41 101 20 30 08/30/17 08:00 99 08/30/17 08:00 98.2 99 20 146/81 100 Mechanical Ventilator 30 98.2 08/30/17 08:00 30 08/30/17 07:19 99 18 30 08/30/17 05:10 92 18 30 08/30/17 04:00 98.2 89 20 120/70 100 Mechanical Ventilator 30 98.2 08/30/17 04:00 100 08/30/17 04:00 30 08/30/17 03:27 96 23 30 08/30/17 01:23 94 18 30 08/30/17 00:00 98.0 96 20 127/80 100 Mechanical Ventilator 30 98.0 08/30/17 00:00 97 08/30/17 00:00 30 08/29/17 23:14 95 18 30 08/29/17 21:13 87 18 30 08/29/17 20:00 98.1 101 20 122/77 99 Mechanical Ventilator 30 98.1 08/29/17 20:00 101 08/29/17 20:00 30 08/29/17 19:24 98 18 30 08/29/17 16:39 92 18 30 08/29/17 16:00 98.1 98 20 137/77 99 Mechanical Ventilator 30 98.1 08/29/17 16:00 30 08/29/17 15:14 96 08/29/17 14:39 95 18 30 08/29/17 12:25 94 18 30 Height (Feet): 6 Height (Inches): 0.00 Weight (Pounds): 132 Objective HEENT: atraumatic Neck: full ROM Heart: HR/BP stable, HR/BP unstable Abdomen: soft, active bowel sounds, feeding tube Extremities: no C/C/E Decubiti: location Laboratory Tests Test 08/30/17 05:15 08/30/17 10:20 Sodium Level 133 MMOL/L (136-145) L Potassium Level 5.1 MMOL/L (3.5-5.1) Chloride Level 102 MMOL/L (98-107) Carbon Dioxide Level 20 MMOL/L (21-32) L Anion Gap 11 mmol/L (5-15) Blood Urea Nitrogen 31 mg/dL (7-18) H Creatinine 0.9 MG/DL (0.55-1.30) Estimat Glomerular Filtration Rate > 60 mL/min (>60) Glucose Level 108 MG/DL (74-106) H Calcium Level 8.1 MG/DL (8.5-10.1) L White Blood Count 10.2 K/UL (4.8-10.8) Red Blood Count 3.46 M/UL (4.70-6.10) L Hemoglobin 9.8 G/DL (14.2-18.0) L Hematocrit 30.1 % (42.0-52.0) L Mean Corpuscular Volume 87 FL (80-99) Mean Corpuscular Hemoglobin 28.5 PG (27.0-31.0) Mean Corpuscular Hemoglobin Concent 32.7 G/DL (32.0-36.0) Red Cell Distribution Width 16.1 % (11.6-14.8) H Platelet Count 286 K/UL (150-450) Mean Platelet Volume 5.8 FL (6.5-10.1) L Neutrophils (%) (Auto) 72.0 % (45.0-75.0) Lymphocytes (%) (Auto) 16.2 % (20.0-45.0) L Monocytes (%) (Auto) 7.1 % (1.0-10.0) Eosinophils (%) (Auto) 3.9 % (0.0-3.0) H Basophils (%) (Auto) 0.9 % (0.0-2.0) Current Medications Medications (Trade) Dose Ordered Sig/Serena Route PRN Reason Start Time Stop Time Status Last Admin Dose Admin Acetaminophen (Tylenol) 650 mg Q4H PRN GT Mild Pain/Temp > 100.5 08/11/17 20:45 09/10/17 20:44 08/20/17 20:27 Albuterol/ Ipratropium (Albuterol/ Ipratropium) 3 ml Q4H PRN HHN Shortness of Breath 08/30/17 09:05 09/04/17 09:04 Amiodarone HCl (Cordarone) 200 mg EVERY 12 HOURS GT 08/28/17 09:00 09/27/17 09:00 08/30/17 08:42 Ceftriaxone Sodium 2 gm/ Dextrose 110 ml @ 220 mls/hr Q24H IVPB 08/28/17 12:00 09/18/17 11:59 08/29/17 13:35 Chlorhexidine Gluconate (Ngoc-Hex 2%) 1 applic DAILY@2000 TOPIC 08/24/17 20:00 09/23/17 19:59 08/29/17 20:02 Daptomycin 400 mg/ Sodium Chloride 110 ml @ 200 mls/hr Q24H IV 08/29/17 10:00 09/18/17 09:59 08/30/17 09:56 Dextrose (Dextrose 50%) STAT PRN IV Hypoglycemia 08/30/17 09:30 09/29/17 09:29 Heparin Sodium (Porcine) (Heparin 5000 units/ml) 5,000 units EVERY 12 HOURS SUBQ 08/28/17 09:00 09/27/17 09:00 08/30/17 08:55 Levetiracetam (Keppra) 250 mg BID GT 08/28/17 09:00 09/27/17 09:00 08/30/17 08:42 Metronidazole (Flagyl) 500 mg Q8HR ORAL 08/20/17 14:00 09/03/17 23:00 08/30/17 05:59 Ondansetron HCl (Zofran) 4 mg Q6H PRN IVP Nausea & Vomiting 08/28/17 08:30 09/27/17 08:29 Pantoprazole (Protonix) 40 mg DAILY IV 08/01/17 09:00 08/31/17 08:59 08/30/17 08:42 Phenytoin (Dilantin) 100 mg Q12HR GT 08/09/17 16:00 09/08/17 15:59 08/30/17 08:42 Polyethylene Glycol (Miralax) 17 gm DAILYPRN PRN ORAL Constipation 08/28/17 08:00 09/27/17 08:00 Francisca Bullock M.D. Aug 30, 2017 12:06
[2017-08-30] MEDS: cefTRIAXone 2 GM in D5W 110 ML IVPB SCH (12:14)
[2017-08-30 16:00] VITALS: BP 124/75
[2017-08-30 20:00] VITALS: BP 126/73
[2017-08-30] MEDS: Acetaminophen 650mg/20.3ml GT PRN (22:31)
[2017-08-30] MEDS: Dyna-Hex 2% Top Sol 2oz TOPIC SCH (22:34)
[2017-08-31] VITALS: BP 124/79
[2017-08-31 04:00] VITALS: BP 125/77
[2017-08-31 04:43] LABS: BASOPHILS % (AUTO) 0.6 % (0.0-2.0); EOSINOPHILS % (AUTO) 5.5 % (0.0-3.0); HEMATOCRIT 26.7 % (42.0-52.0); HEMOGLOBIN 8.9 G/DL (14.2-18.0); LYMPHOCYTES % (AUTO) 13.5 % (20.0-45.0); MEAN CORPUSCULAR VOLUME 87 FL (80-99); MONOCYTES % (AUTO) 8.5 % (1.0-10.0); NEUTROPHILS % (AUTO) 71.9 % (45.0-75.0); PLATELET COUNT 437 K/UL (150-450); RED BLOOD COUNT 3.06 M/UL (4.70-6.10); RED CELL DISTRIBUTION WIDTH 16.6 % (11.6-14.8); WHITE BLOOD COUNT 12.7 K/UL (4.8-10.8)
[2017-08-31 04:49] LABS: ANION GAP 9 mmol/L (5-15); BLOOD UREA NITROGEN 35 mg/dL (7-18); CALCIUM 8.8 MG/DL (8.5-10.1); CARBON DIOXIDE 24 MMOL/L (21-32); CHLORIDE 101 MMOL/L (98-107); POTASSIUM 4.1 MMOL/L (3.5-5.1); SODIUM 134 MMOL/L (136-145)
[2017-08-31] MEDS: metroNIDAZOLE 500mg tab ORAL SCH ×3 (05:41→20:48)
[2017-08-31 08:00] VITALS: BP 119/76
[2017-08-31] MEDS: Amiodarone 200mg tab GT SCH ×2 (08:41→20:46)
[2017-08-31] MEDS: Heparin 5000 units/ml inj SUBQ SCH ×2 (08:41→20:48)
[2017-08-31] MEDS: Phenytoin Susp 100mg/4ml GT SCH ×2 (08:41→20:46)
[2017-08-31] MEDS: Pantoprazole Inj IV SCH (08:41)
[2017-08-31] MEDS: levETIRAcetam 500mg/5ml Liquid GT SCH ×2 (08:41→17:27)
--- NOTE | 2017-08-31 09:25 | Pulmonology Progress Note ---
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 pleural effusion s/p thoracentesis-400cc Dysphagia, feeding by G-tube seizure disorder functional quadriplegia multiple decub POA: sacral, L heel DM HTN anemia of chronic disease PLAN OF CARE FARZANA vent/trach care, last CXR 08/29 - Markedly improved right and slightly improved left infiltrates versus edema, over 6 days previous CXR 08/[address] chest done prior pulmonary toilet, suctioning, sputum AFB x 3 negative, fungal serology negative TB spot + low suspicion for TB, per ID suspect latent rather than active PICC removed Last blood cx 08/21 negative New PICC 08/25 inserted abx per ID management prob VAP, sputum cx + Pseudomonas MDR, influenza negative, bone scan + high suspicion for acute OM L calcaneus, will need nursing home abx - per ID management' ECHO with pEF 60-655Z and RVSP of 27 seizure precautions continue Keppra and Dilantin DVT GI prophylaxis Venous Duplex LE negative BP, BS monitoring and management HIDA negative bowel regimen monitor renal parameters, correct lyres as needed anemia w/up c/w anemia of chronic disease monitor HH, transfuse prn to keep Hgb above 7, heme follows wound care as per wound nurse recs podiatry eval noted and appreciated supportive care DNR/DNI status dc plan need Department of Health clearance case discussed and evaluated by supervising physician Subjective Allergies: Coded Allergies: No Known Allergies (Unverified , 07/31/17) Subjective no fever , with mild leukocytosis today no signs of resp distress on current settings off isolation Objective Last 24 Hour Vital Signs Date Time Temp Pulse Resp B/P (MAP) Pulse Ox O2 Delivery O2 Flow Rate FiO2 08/31/17 08:00 30 08/31/17 08:00 98.1 98 20 119/76 99 Mechanical Ventilator 30 98.1 08/31/17 07:08 97 18 30 08/31/17 05:12 97 18 30 08/31/17 04:00 97 08/31/17 04:00 98.9 97 20 125/77 100 Mechanical Ventilator 30 98.9 08/31/17 04:00 30 08/31/17 02:48 95 18 30 08/31/17 00:34 94 19 30 08/31/17 00:00 98.1 92 18 124/79 100 Mechanical Ventilator 30 98.1 08/31/17 00:00 30 08/31/17 00:00 95 08/30/17 23:01 98.1 08/30/17 22:40 97 18 30 08/30/17 22:31 99.0 08/30/17 21:07 97 18 30 08/30/17 20:17 97 19 30 08/30/17 20:00 30 08/30/17 20:00 99.0 95 21 126/73 99 Mechanical Ventilator 30 99.0 08/30/17 20:00 97 08/30/17 17:00 96 18 30 08/30/17 16:09 30 08/30/17 16:00 98.1 95 21 124/75 99 Mechanical Ventilator 30 98.1 08/30/17 16:00 98 08/30/17 15:20 97 18 30 08/30/17 13:09 96 19 30 08/30/17 12:07 30 08/30/17 12:00 98.1 98 19 130/78 100 Mechanical Ventilator 30 98.1 08/30/17 12:00 97 08/30/17 11:33 97 19 30 Intake and Output 08/30/17 08/31/17 19:00 07:00 Intake Total 665 ml 820 ml Output Total 700 ml Balance 665 ml 120 ml Free Water 60 ml 160 ml Tube Feeding 605 ml 660 ml Output Urine Total 700 ml # Bowel Movements 2 3 Objective General Appearance: no acute distress, bedridden, vent dependent male in NAD on Vent AC 550-18-30% PEEP 5 HEENT: status post trach with Shiley#8, secretions small yellow, thin Respiratory/Chest: no respiratory distress, BS clear Cardiovascular: normal rate, regular rhythm - SR on tele, PICC LUE intact Abdomen: normal bowel sounds, soft, non tender, G tube, Mishra Skin: L heel and sacral decub POA Neurologic/Psychiatric: abnormal gait, contracted, poorly responsive Laboratory Tests 08/30/17 10:20: White Blood Count 10.2, Red Blood Count 3.46L, Hemoglobin 9.8L, Hematocrit 30.1L , Mean Corpuscular Volume 87, Mean Corpuscular Hemoglobin 28.5, Mean Corpuscular Hemoglobin Concent 32.7, Red Cell Distribution Width 16.1H, Platelet Count 286, Mean Platelet Volume 5.8L, Neutrophils (%) (Auto) 72.0, Lymphocytes (%) (Auto) 16.2L, Monocytes (%) (Auto) 7.1, Eosinophils (%) (Auto) 3.9H, Basophils (%) (Auto) 0.9 08/31/17 04:00: White Blood Count 12.7H, Red Blood Count 3.06L, Hemoglobin 8.9L, Hematocrit 26.7L, Mean Corpuscular Volume 87, Mean Corpuscular Hemoglobin 28.9, Mean Corpuscular Hemoglobin Concent 33.3, Red Cell Distribution Width 16.6H, Platelet Count 437#, Mean Platelet Volume 6.5, Neutrophils (%) (Auto) 71.9, Lymphocytes (%) (Auto) 13.5L, Monocytes (%) (Auto) 8.5, Eosinophils (%) (Auto) 5.5H, Basophils (%) (Auto) 0.6, Sodium Level 134L, Potassium Level 4.1, Chloride Level 101, Carbon Dioxide Level 24, Anion Gap 9, Blood Urea Nitrogen 35H, Creatinine 1.0, Estimat Glomerular Filtration Rate > 60, Glucose Level 128H , Calcium Level 8.8 Current Medications Medications (Trade) Dose Ordered Sig/Serena Route PRN Reason Start Time Stop Time Status Last Admin Dose Admin Acetaminophen (Tylenol) 650 mg Q4H PRN GT Mild Pain/Temp > 100.5 08/11/17 20:45 09/10/17 20:44 08/30/17 22:31 Albuterol/ Ipratropium (Albuterol/ Ipratropium) 3 ml Q4H PRN HHN Shortness of Breath 08/30/17 09:05 09/04/17 09:04 Amiodarone HCl (Cordarone) 200 mg EVERY 12 HOURS GT 08/28/17 09:00 09/27/17 09:00 08/31/17 08:41 Ceftriaxone Sodium 2 gm/ Dextrose 110 ml @ 220 mls/hr Q24H IVPB 08/28/17 12:00 09/18/17 11:59 08/30/17 12:14 Chlorhexidine Gluconate (Ngoc-Hex 2%) 1 applic DAILY@1999 TOPIC 08/24/17 20:00 09/23/17 19:59 08/30/17 22:34 Daptomycin 400 mg/ Sodium Chloride 110 ml @ 200 mls/hr Q24H IV 08/29/17 10:00 09/18/17 09:59 08/30/17 09:56 Dextrose (Dextrose 50%) STAT PRN IV Hypoglycemia 08/30/17 09:30 09/29/17 09:29 Heparin Sodium (Porcine) (Heparin 5000 units/ml) 5,000 units EVERY 12 HOURS SUBQ 08/28/17 09:00 09/27/17 09:00 08/31/17 08:41 Levetiracetam (Keppra) 250 mg BID GT 08/28/17 09:00 09/27/17 09:00 08/31/17 08:41 Metronidazole (Flagyl) 500 mg Q8HR ORAL 08/20/17 14:00 09/03/17 23:00 08/31/17 05:41 Ondansetron HCl (Zofran) 4 mg Q6H PRN IVP Nausea & Vomiting 08/28/17 08:30 09/27/17 08:29 Pantoprazole (Protonix) 40 mg DAILY IV 08/01/17 09:00 09/30/17 08:59 08/31/17 08:41 Phenytoin (Dilantin) 100 mg Q12HR GT 08/09/17 16:00 09/08/17 15:59 08/31/17 08:41 Polyethylene Glycol (Miralax) 17 gm DAILYPRN PRN ORAL Constipation 08/28/17 08:00 09/27/17 08:00 Lizet Wilks NP ([facility]) Aug 31, 2017 09:24
[2017-08-31] MEDS: DAPTOmycin 400 MG in NS 110 ML IV SCH (09:44)
[2017-08-31] MEDS: cefTRIAXone 2 GM in D5W 110 ML IVPB SCH (11:12)
[2017-08-31 11:56] VITALS: BP 114/73
--- NOTE | 2017-08-31 12:34 | Infectious Diseases Prog Note ---
Assessment/Plan Assessment/Plan ASSESSMENT: The patient is a 62-year-old male with: Fever, resolved- - ? due to mucous plug vs parapneumonic effusion; and to PICC line infection -HIDA scan neg -CXR 08/17: Interval expansion of the previously atelectatic right lung. Considerable infiltrate versus edema throughout the right lung. Increasing left basilar atelectasis and possibly infiltrate -CXR 08/16: Complete opacification right hemithorax. Probably due to atelectasis related to endobronchial occlusion at the level of the right mainstem bronchus. There may also be a significant component of pleural effusion. PICC line infection with CoNS, -Bcx 08/21 Neg -s/p removal PICC 08/18; s/p new pICC line 08/25 -Bcx 08/15 1/ + PICC line, peripheral NTD; Bcx 08/18 : 2/4 CoNS; cath tip cx CoNS -echo 07/31: limited views, no obvious vegetations or significant valve abnormalities Recent Blood Cx: CoNS probable line infection (PICC from out side facility was removed on and replaced on 08/03 ) Complete opacification R lung- , much improved now, possibly due to mucous plug ; recurrent -CXR 08/22: Interim near complete opacification of the right lung, probably due to near complete right lung atelectasis, given evidence of bronchial occlusion and mediastinal shift indicating volume loss. Component of pleural fluid also possible,however.New or increased moderate left pleural effusion ? ventilatory-associated pneumonia Scx: MDR PSA (S gentamicin, Colistin), repeat sp cx 08/13 normal piop- Low suspicion overall for TB CCT: Extensive interstitial opacities throughout the right lung as well as groundglass opacities. Large differential, suspect on the basis of pulmonary edema, particularly given evidence of edema elsewhere, but possibility of infection, including possible tuberculosis, should also be considered. Right lower lobe consolidation, may reflect pneumonia (chest x-ray:Considerably worse pleural and parenchymal disease on the right. Slightly worse in pleural and parenchymal disease on the left, over 3 days ) Influenza: Neg -AFB sp cx smear neg x3, cx p, MTB PCR neg -Blatomyces ab neg, CrAg neg, Histoplasma ID neg, CF not done due to anticomplement activity; Cocci ab pending -HIV ag/ab neg -TB spot + (suspect latent rather than active, final AFB cx pending), MTB PCR neg Multiple decubitus of lower extremity. Left heel unstageable decubitus (no purulent discharge.) probable osteo per bone scan -no wound cx obtained NM : flow, blood pool, static activity involving the calcaneal tuberosity on the left. This is worrisome for acute osteomyelitis Sacral Wnd :- no signs of infection -Wnd Cx : MDR Kleb abd MDR ACB (colonizers) ESR: 130 , CRP : 8 Leukocytosis, recurrent, mild -Cdiff neg Elevated LFTs; resolving 08/12 CT C/A/P : no abscess. Evidence of anasarca, with generalized edema of the subcutaneous fat,retroperitoneal and mesenteric fat, trace ascites, small left pleural effusion. Possible wall thickening of proximal and mid transverse and ascending colon. Could represent colitis although possibly artifactual due to under distention. Very questionable wall thickening of the duodenum and proximal jejunum, if real could indicate duodenitis/enteritis and/or peptic ulcer disease. Gas bubbles in the anterior aspect of the right rectus abdominis muscle belly. Cholelithiasis. Diffusely somewhat prominent pancreas, probably baseline for this patient, but the possibility of acute pancreatitis should be considered. Scattered punctate microcalcifications may represent sequelae of chronic calcifying pancreatitis, versus arterial calcifications. Ectasia of the pancreatic duct could also indicate chronic calcified pancreatitis no definite pancreatic head mass, although evaluation for such is limited in the absence of IVcontrast US Borderline gallbladder wall thickening, more likely artifact due to underdistention than real. Diarrhea CT: ? wall thickening of proximal and mid transverse and ascending colon.duodenum and proximal jejunum, and probable acute pancreatitis should be considered. ? Clostridium difficile: Neg Pl effusion: exudate , Pr : 4.4 , cell count : P ro empyema 08/12 SP ultrasound-guided thoracentesis, of 400 cc BETSY Diabetes. Anemia. GERD. Hypertension. History of TBI. Seizure disorder PLAN: -For possible acute OM of L heel- will treat empirically, given no obtainable cultures, with IV Daptomycin 6mg/kg qd and Ceftriaxone 2g IV qd(abx d#) and Flagyl #05/19 (additional anaerobic coverage of osteo ) --ok to discharge on above regimen. (Vanco switched to Dapto given CoNS bacteremia on 08/15 from PICC line) 08/19 SP INH colistin 14/ for MDR PsA PNA 08/18 SP IV Vancomycin #4 3/13 SP Micafungin #5 3/ SP Meropenem #10 3/ SP IV Colistin #9 3/4 SP vancomycin d# 9 and Zosyn and Gent d# 4 3/ SP cefepime day # 5 PICC line care Monitor chest x-ray f/u cocci ab, fungitell, AFB final cultures Trend WBC ESR, CRP am Discussed with RN. Subjective Allergies: Coded Allergies: No Known Allergies (Unverified , 07/31/17) Subjective afebrile mild leukoocytosis Objective Vital Signs Last 24 Hour Vital Signs Date Time Temp Pulse Resp B/P (MAP) Pulse Ox O2 Delivery O2 Flow Rate FiO2 08/31/17 12:00 30 08/31/17 11:56 97.7 98 20 114/73 98 Mechanical Ventilator 30 97.7 08/31/17 10:50 96 18 30 08/31/17 10:03 90 18 30 08/31/17 08:00 30 08/31/17 08:00 98.1 98 20 119/76 99 Mechanical Ventilator 30 98.1 08/31/17 08:00 97 08/31/17 07:08 97 18 30 08/31/17 05:12 97 18 30 08/31/17 04:00 97 08/31/17 04:00 98.9 97 20 125/77 100 Mechanical Ventilator 30 98.9 08/31/17 04:00 30 08/31/17 02:48 95 18 30 08/31/17 00:34 94 19 30 08/31/17 00:00 98.1 92 18 124/79 100 Mechanical Ventilator 30 98.1 08/31/17 00:00 30 08/31/17 00:00 95 08/30/17 23:01 98.1 08/30/17 22:40 97 18 30 08/30/17 22:31 99.0 08/30/17 21:07 97 18 30 08/30/17 20:17 97 19 30 08/30/17 20:00 30 08/30/17 20:00 99.0 95 21 126/73 99 Mechanical Ventilator 30 99.0 08/30/17 20:00 97 08/30/17 17:00 96 18 30 08/30/17 16:09 30 08/30/17 16:00 98.1 95 21 124/75 99 Mechanical Ventilator 30 98.1 08/30/17 16:00 98 08/30/17 15:20 97 18 30 08/30/17 13:09 96 19 30 Height (Feet): 6 Height (Inches): 0.00 Weight (Pounds): 135 Objective HEENT: atraumatic Neck: full ROM Heart: HR/BP stable, HR/BP unstable Abdomen: soft, active bowel sounds, feeding tube Extremities: no C/C/E Decubiti: location Laboratory Tests Test 08/31/17 04:00 White Blood Count 12.7 K/UL (4.8-10.8) H Red Blood Count 3.06 M/UL (4.70-6.10) L Hemoglobin 8.9 G/DL (14.2-18.0) L Hematocrit 26.7 % (42.0-52.0) L Mean Corpuscular Volume 87 FL (80-99) Mean Corpuscular Hemoglobin 28.9 PG (27.0-31.0) Mean Corpuscular Hemoglobin Concent 33.3 G/DL (32.0-36.0) Red Cell Distribution Width 16.6 % (11.6-14.8) H Platelet Count 437 K/UL (150-450) # Mean Platelet Volume 6.5 FL (6.5-10.1) Neutrophils (%) (Auto) 71.9 % (45.0-75.0) Lymphocytes (%) (Auto) 13.5 % (20.0-45.0) L Monocytes (%) (Auto) 8.5 % (1.0-10.0) Eosinophils (%) (Auto) 5.5 % (0.0-3.0) H Basophils (%) (Auto) 0.6 % (0.0-2.0) Sodium Level 134 MMOL/L (136-145) L Potassium Level 4.1 MMOL/L (3.5-5.1) Chloride Level 101 MMOL/L (98-107) Carbon Dioxide Level 24 MMOL/L (21-32) Anion Gap 9 mmol/L (5-15) Blood Urea Nitrogen 35 mg/dL (7-18) H Creatinine 1.0 MG/DL (0.55-1.30) Estimat Glomerular Filtration Rate > 60 mL/min (>60) Glucose Level 128 MG/DL (74-106) H Calcium Level 8.8 MG/DL (8.5-10.1) Current Medications Medications (Trade) Dose Ordered Sig/Serena Route PRN Reason Start Time Stop Time Status Last Admin Dose Admin Acetaminophen (Tylenol) 650 mg Q4H PRN GT Mild Pain/Temp > 100.5 08/11/17 20:45 09/10/17 20:44 08/30/17 22:31 Albuterol/ Ipratropium (Albuterol/ Ipratropium) 3 ml Q4H PRN HHN Shortness of Breath 08/30/17 09:05 09/04/17 09:04 Amiodarone HCl (Cordarone) 200 mg EVERY 12 HOURS GT 08/28/17 09:00 09/27/17 09:00 08/31/17 08:41 Ceftriaxone Sodium 2 gm/ Dextrose 110 ml @ 220 mls/hr Q24H IVPB 08/28/17 12:00 09/18/17 11:59 08/31/17 11:12 Chlorhexidine Gluconate (Ngoc-Hex 2%) 1 applic DAILY@2000 TOPIC 08/24/17 20:00 09/23/17 19:59 08/30/17 22:34 Daptomycin 400 mg/ Sodium Chloride 110 ml @ 200 mls/hr Q24H IV 08/29/17 10:00 09/18/17 09:59 08/31/17 09:44 Dextrose (Dextrose 50%) STAT PRN IV Hypoglycemia 08/30/17 09:30 09/29/17 09:29 Heparin Sodium (Porcine) (Heparin 5000 units/ml) 5,000 units EVERY 12 HOURS SUBQ 08/28/17 09:00 09/27/17 09:00 08/31/17 08:41 Levetiracetam (Keppra) 250 mg BID GT 08/28/17 09:00 09/27/17 09:00 08/31/17 08:41 Metronidazole (Flagyl) 500 mg Q8HR ORAL 08/20/17 14:00 09/03/17 23:00 08/31/17 05:41 Ondansetron HCl (Zofran) 4 mg Q6H PRN IVP Nausea & Vomiting 08/28/17 08:30 09/27/17 08:29 Pantoprazole (Protonix) 40 mg DAILY IV 08/01/17 09:00 09/30/17 08:59 08/31/17 08:41 Phenytoin (Dilantin) 100 mg Q12HR GT 08/09/17 16:00 09/08/17 15:59 08/31/17 08:41 Polyethylene Glycol (Miralax) 17 gm DAILYPRN PRN ORAL Constipation 08/28/17 08:00 09/27/17 08:00 Francisca Bullock M.D. Aug 31, 2017 12:34
[2017-08-31 16:00] VITALS: BP 106/67
[2017-08-31 20:00] VITALS: BP 121/81
[2017-08-31] MEDS: Dyna-Hex 2% Top Sol 2oz TOPIC SCH (20:46)
--- NOTE | 2017-08-31 23:47 | General Progress Note ---
Assessment/Plan Assessment/Plan 1. Anemia of chronic disease. Monitor closely. --> ESR 134. Hemoglobin has been above goal. --> Anemia workup reviewed. --> Iron 37, TIBC 99, Vit B12 535, Folate 11.4 --> Transfuse if hgb <7 --> Blood transfusion not required unless symptomatic or hgb below goal. 2. Leukocytosis, likely secondary to infection, has since improved. --> On antibiotics. --> Monitor and trend cbc --> Improved. 3. Coagulopathy. Consider vitamin K intake. Imaging reviewed. --> Prominent pancreas, calcification is noted. --> On anticoagulation -- heparin 4. Dysphagia, status post percutaneous endoscopic gastrostomy tube. 5. Cholelithiasis is noted on ultrasound. Borderline diabetic --> HIDA scan is negative. 6. Transaminitis has since improved, potentially secondary to medications. Subjective Date patient seen: Aug 30, 2017 Constitutional: Denies: no symptoms, chills, diaphoresis, fever, malaise, weakness, other HEENT: Denies: no symptoms, eye pain, blurred vision, tearing, double vision, ear pain, ear discharge, nose pain, nose congestion, throat pain, throat swelling, mouth pain, mouth swelling, other Cardiovascular: Denies: no symptoms, chest pain, edema, irregular heart rate, lightheadedness, palpitations, syncope, other Respiratory: Denies: no symptoms, cough, orthopnea, shortness of breath, SOB with excertion, SOB at rest, sputum, stridor, wheezing, other Gastrointestinal/Abdominal: Denies: no symptoms, abdomen distended, abdominal pain, black stools, tarry stools, blood in stool, constipated, diarrhea, difficulty swallowing, nausea, poor appetite, poor fluid intake, rectal bleeding , vomiting, other Genitourinary: Denies: no symptoms, burning, discharge, frequency, flank pain, hematuria, incontinence, pain, urgency, other Neurologic/Psychiatric: Denies: no symptoms, anxiety, depressed, emotional problems, headache, numbness, paresthesia, pre-existing deficit, seizure, tingling, tremors, weakness, other Hematologic/Lymphatic: Reports: anemia Allergies: Coded Allergies: No Known Allergies (Unverified , 07/31/17) Subjective On vent. Nonverbal. No acute events. Objective Last 24 Hour Vital Signs Date Time Temp Pulse Resp B/P (MAP) Pulse Ox O2 Delivery O2 Flow Rate FiO2 08/31/17 22:51 107 18 30 08/31/17 20:45 97 18 30 08/31/17 19:02 103 19 30 08/31/17 16:55 104 18 30 08/31/17 16:00 30 08/31/17 16:00 99 08/31/17 16:00 98.0 104 18 106/67 100 Mechanical Ventilator 30 98.0 08/31/17 14:52 98 20 30 08/31/17 12:49 95 18 30 08/31/17 12:00 30 08/31/17 12:00 96 08/31/17 11:56 97.7 98 20 114/73 98 Mechanical Ventilator 30 97.7 08/31/17 10:50 96 18 30 08/31/17 10:03 90 18 30 08/31/17 08:00 30 08/31/17 08:00 98.1 98 20 119/76 99 Mechanical Ventilator 30 98.1 08/31/17 08:00 97 08/31/17 07:08 97 18 30 08/31/17 05:12 97 18 30 08/31/17 04:00 97 08/31/17 04:00 98.9 97 20 125/77 100 Mechanical Ventilator 30 98.9 08/31/17 04:00 30 08/31/17 02:48 95 18 30 08/31/17 00:34 94 19 30 08/31/17 00:00 98.1 92 18 124/79 100 Mechanical Ventilator 30 98.1 08/31/17 00:00 30 08/31/17 00:00 95 Intake and Output 08/30/17 08/31/17 19:00 07:00 Intake Total 665 ml 820 ml Output Total 700 ml Balance 665 ml 120 ml Free Water 60 ml 160 ml Tube Feeding 605 ml 660 ml Output Urine Total 700 ml # Bowel Movements 2 3 Laboratory Tests 08/31/17 04:00: White Blood Count 12.7H, Red Blood Count 3.06L, Hemoglobin 8.9L, Hematocrit 26.7L, Mean Corpuscular Volume 87, Mean Corpuscular Hemoglobin 28.9, Mean Corpuscular Hemoglobin Concent 33.3, Red Cell Distribution Width 16.6H, Platelet Count 437#, Mean Platelet Volume 6.5, Neutrophils (%) (Auto) 71.9, Lymphocytes (%) (Auto) 13.5L, Monocytes (%) (Auto) 8.5, Eosinophils (%) (Auto) 5.5H, Basophils (%) (Auto) 0.6, Sodium Level 134L, Potassium Level 4.1, Chloride Level 101, Carbon Dioxide Level 24, Anion Gap 9, Blood Urea Nitrogen 35H, Creatinine 1.0, Estimat Glomerular Filtration Rate > 60, Glucose Level 128H , Calcium Level 8.8 Height (Feet): 6 Height (Inches): 0.00 Weight (Pounds): 135 General Appearance: lethargic, confused Respiratory/Chest: decreased breath sounds Abdomen: soft López Vásquez MD Aug 31, 2017 23:47
--- NOTE | 2017-08-31 23:48 | General Progress Note ---
Assessment/Plan Assessment/Plan 1. Anemia of chronic disease. Monitor closely. --> ESR 134. Hemoglobin has been above goal. --> Anemia workup reviewed. --> Iron 37, TIBC 99, Vit B12 535, Folate 11.4 --> Transfuse if hgb <7 --> Blood transfusion not required unless symptomatic or hgb below goal. 2. Leukocytosis, likely secondary to infection, has since improved. --> On antibiotics. --> Monitor and trend cbc 3. Coagulopathy.Likely due to decreased vitamin K intake. Imaging reviewed. --> Prominent pancreas, calcification is noted. --> On anticoagulation -- heparin sq 4. Dysphagia, status post percutaneous endoscopic gastrostomy tube. 5. Cholelithiasis is noted on ultrasound. Borderline diabetic --> HIDA scan is negative. 6. Transaminitis has since improved, potentially secondary to medications v other causes Subjective Date patient seen: Aug 31, 2017 Constitutional: Denies: no symptoms, chills, diaphoresis, fever, malaise, weakness, other HEENT: Denies: no symptoms, eye pain, blurred vision, tearing, double vision, ear pain, ear discharge, nose pain, nose congestion, throat pain, throat swelling, mouth pain, mouth swelling, other Cardiovascular: Denies: no symptoms, chest pain, edema, irregular heart rate, lightheadedness, palpitations, syncope, other Respiratory: Denies: no symptoms, cough, orthopnea, shortness of breath, SOB with excertion, SOB at rest, sputum, stridor, wheezing, other Gastrointestinal/Abdominal: Denies: no symptoms, abdomen distended, abdominal pain, black stools, tarry stools, blood in stool, constipated, diarrhea, difficulty swallowing, nausea, poor appetite, poor fluid intake, rectal bleeding , vomiting, other Genitourinary: Denies: no symptoms, burning, discharge, frequency, flank pain, hematuria, incontinence, pain, urgency, other Neurologic/Psychiatric: Denies: no symptoms, anxiety, depressed, emotional problems, headache, numbness, paresthesia, pre-existing deficit, seizure, tingling, tremors, weakness, other Hematologic/Lymphatic: Reports: anemia Allergies: Coded Allergies: No Known Allergies (Unverified , 07/31/17) Subjective On vent. Nonverbal. No fever or chills. H/H stable. Objective Last 24 Hour Vital Signs Date Time Temp Pulse Resp B/P (MAP) Pulse Ox O2 Delivery O2 Flow Rate FiO2 08/31/17 22:51 107 18 30 08/31/17 20:45 97 18 30 08/31/17 19:02 103 19 30 08/31/17 16:55 104 18 30 08/31/17 16:00 30 08/31/17 16:00 99 08/31/17 16:00 98.0 104 18 106/67 100 Mechanical Ventilator 30 98.0 08/31/17 14:52 98 20 30 08/31/17 12:49 95 18 30 08/31/17 12:00 30 08/31/17 12:00 96 08/31/17 11:56 97.7 98 20 114/73 98 Mechanical Ventilator 30 97.7 08/31/17 10:50 96 18 30 08/31/17 10:03 90 18 30 08/31/17 08:00 30 08/31/17 08:00 98.1 98 20 119/76 99 Mechanical Ventilator 30 98.1 08/31/17 08:00 97 08/31/17 07:08 97 18 30 08/31/17 05:12 97 18 30 08/31/17 04:00 97 08/31/17 04:00 98.9 97 20 125/77 100 Mechanical Ventilator 30 98.9 08/31/17 04:00 30 08/31/17 02:48 95 18 30 08/31/17 00:34 94 19 30 08/31/17 00:00 98.1 92 18 124/79 100 Mechanical Ventilator 30 98.1 08/31/17 00:00 30 08/31/17 00:00 95 Intake and Output 08/30/17 08/31/17 19:00 07:00 Intake Total 665 ml 820 ml Output Total 700 ml Balance 665 ml 120 ml Free Water 60 ml 160 ml Tube Feeding 605 ml 660 ml Output Urine Total 700 ml # Bowel Movements 2 3 Laboratory Tests 08/31/17 04:00: White Blood Count 12.7H, Red Blood Count 3.06L, Hemoglobin 8.9L, Hematocrit 26.7L, Mean Corpuscular Volume 87, Mean Corpuscular Hemoglobin 28.9, Mean Corpuscular Hemoglobin Concent 33.3, Red Cell Distribution Width 16.6H, Platelet Count 437#, Mean Platelet Volume 6.5, Neutrophils (%) (Auto) 71.9, Lymphocytes (%) (Auto) 13.5L, Monocytes (%) (Auto) 8.5, Eosinophils (%) (Auto) 5.5H, Basophils (%) (Auto) 0.6, Sodium Level 134L, Potassium Level 4.1, Chloride Level 101, Carbon Dioxide Level 24, Anion Gap 9, Blood Urea Nitrogen 35H, Creatinine 1.0, Estimat Glomerular Filtration Rate > 60, Glucose Level 128H , Calcium Level 8.8 Height (Feet): 6 Height (Inches): 0.00 Weight (Pounds): 135 General Appearance: lethargic Respiratory/Chest: decreased breath sounds Abdomen: soft López Vásquez MD Aug 31, 2017 23:48
[2017-09-01] VITALS: BP 129/84
[2017-09-01 04:00] VITALS: BP 100/68
[2017-09-01 05:08] LABS: ANION GAP 10 mmol/L (5-15); BLOOD UREA NITROGEN 35 mg/dL (7-18); CALCIUM 9.1 MG/DL (8.5-10.1); CARBON DIOXIDE 23 MMOL/L (21-32); CHLORIDE 101 MMOL/L (98-107); CREATININE 1.1 MG/DL (0.55-1.30); POTASSIUM 4.4 MMOL/L (3.5-5.1); SODIUM 134 MMOL/L (136-145)
[2017-09-01 05:19] LABS: BASOPHILS % (AUTO) 0.4 % (0.0-2.0); EOSINOPHILS % (AUTO) 2.6 % (0.0-3.0); HEMATOCRIT 28.7 % (42.0-52.0); HEMOGLOBIN 9.6 G/DL (14.2-18.0); LYMPHOCYTES % (AUTO) 9.8 % (20.0-45.0); MEAN CORPUSCULAR VOLUME 87 FL (80-99); MONOCYTES % (AUTO) 7.1 % (1.0-10.0); NEUTROPHILS % (AUTO) 80.1 % (45.0-75.0); PLATELET COUNT 457 K/UL (150-450); RED BLOOD COUNT 3.29 M/UL (4.70-6.10); RED CELL DISTRIBUTION WIDTH 16.8 % (11.6-14.8); WHITE BLOOD COUNT 17.1 K/UL (4.8-10.8)
[2017-09-01] MEDS: metroNIDAZOLE 500mg tab ORAL SCH ×3 (05:45→21:01)
[2017-09-01 08:00] VITALS: BP 106/69
[2017-09-01] MEDS: Pantoprazole Inj IV SCH (08:18)
[2017-09-01] MEDS: levETIRAcetam 500mg/5ml Liquid GT SCH ×2 (08:18→17:15)
[2017-09-01] MEDS: Phenytoin Susp 100mg/4ml GT SCH ×2 (08:18→20:58)
[2017-09-01] MEDS: Heparin 5000 units/ml inj SUBQ SCH ×2 (08:22→20:59)
[2017-09-01] MEDS: Amiodarone 200mg tab GT SCH ×2 (09:43→20:58)
[2017-09-01] MEDS: DAPTOmycin 400 MG in NS 110 ML IV SCH (10:03)
--- NOTE | 2017-09-01 10:11 | Pulmonology Progress Note ---
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 pleural effusion s/p thoracentesis-400cc Dysphagia, feeding by G-tube seizure disorder functional quadriplegia multiple decub POA: sacral, L heel DM HTN anemia of chronic disease PLAN OF CARE FARZANA vent/trach care, last CXR 08/29 - Markedly improved right and slightly improved left infiltrates versus edema, over 6 days previous CXR 08/23 with significant improvement due to leuk today will repeat CXR CT chest done prior pulmonary toilet, suctioning, sputum AFB x 3 negative, fungal serology negative TB spot + low suspicion for TB, per ID suspect latent rather than active PICC removed Last blood cx 08/21 negative New PICC 08/25 inserted abx per ID management prob VAP, sputum cx + Pseudomonas MDR, influenza negative, bone scan + high suspicion for acute OM L calcaneus, will need entry level management abx - per ID management' ECHO with pEF [id number] and RVSP of 27 seizure precautions continue Keppra and Dilantin DVT GI prophylaxis Venous Duplex LE negative BP, BS monitoring and management HIDA negative bowel regimen monitor renal parameters, correct lyres as needed anemia w/up c/w anemia of chronic disease monitor HH, transfuse prn to keep Hgb above 7, heme follows wound care as per wound nurse recs podiatry eval noted and appreciated supportive care DNR/DNI status dc plan need Department of Health clearance case discussed and evaluated by supervising physician Subjective Allergies: Coded Allergies: No Known Allergies (Unverified , 07/31/17) Subjective no fever , leukocytosis with trend up today no signs of resp distress on current settings off isolation Objective Last 24 Hour Vital Signs Date Time Temp Pulse Resp B/P (MAP) Pulse Ox O2 Delivery O2 Flow Rate FiO2 09/01/17 08:48 106 18 30 09/01/17 08:00 30 09/01/17 08:00 105 09/01/17 08:00 98.1 109 18 106/69 99 Mechanical Ventilator 30 98.1 09/01/17 06:50 108 18 30 09/01/17 05:10 115 18 30 09/01/17 04:00 97.9 107 19 100/68 100 Mechanical Ventilator 40.0 30 97.9 107 09/01/17 04:00 30 09/01/17 03:31 108 09/01/17 03:11 110 18 30 09/01/17 01:18 110 17 30 09/01/17 00:00 97.8 108 19 129/84 100 Mechanical Ventilator 40.0 30 97.8 104 09/01/17 00:00 30 08/31/17 23:30 110 08/31/17 22:51 107 18 30 08/31/17 20:45 97 18 30 08/31/17 20:00 98.1 104 19 121/81 100 Mechanical Ventilator 40.0 30 98.1 104 08/31/17 20:00 30 08/31/17 19:02 103 19 30 08/31/17 16:55 104 18 30 08/31/17 16:00 30 08/31/17 16:00 99 08/31/17 16:00 98.0 104 18 106/67 100 Mechanical Ventilator 30 98.0 08/31/17 14:52 98 20 30 08/31/17 12:49 95 18 30 08/31/17 12:00 30 08/31/17 12:00 96 08/31/17 11:56 97.7 98 20 114/73 98 Mechanical Ventilator 30 97.7 08/31/17 10:50 96 18 30 Intake and Output 08/31/17 09/01/17 19:00 07:00 Intake Total 1030 ml 860 ml Output Total 700 ml 500 ml Balance 330 ml 360 ml Free Water 30 ml IV Total 220 ml Tube Feeding 660 ml 660 ml Other 120 ml 200 ml Output Urine Total 700 ml 500 ml # Bowel Movements 2 2 Objective General Appearance: no acute distress, bedridden, vent dependent male in NAD on Vent AC 550-18-30% PEEP 5 HEENT: status post trach with Shiley#[id number], secretions small yellow, thin Respiratory/Chest: no respiratory distress, BS clear Cardiovascular: normal rate, regular rhythm - SR on tele, PICC LUE intact Abdomen: normal bowel sounds, soft, non tender, G tube, Mishra Skin: L heel and sacral decub POA Neurologic/Psychiatric: abnormal gait, contracted, poorly responsive Laboratory Tests 09/01/17 03:40: White Blood Count 17.1H, Red Blood Count 3.29L, Hemoglobin 9.6L, Hematocrit 28.7L, Mean Corpuscular Volume 87, Mean Corpuscular Hemoglobin 29.1, Mean Corpuscular Hemoglobin Concent 33.4, Red Cell Distribution Width 16.8H, Platelet Count 457H, Mean Platelet Volume 6.4L, Neutrophils (%) (Auto) 80.1H, Lymphocytes (%) (Auto) 9.8L, Monocytes (%) (Auto) 7.1, Eosinophils (%) (Auto) 2.6, Basophils (%) (Auto) 0.4, Erythrocyte Sedimentation Rate 111H, Sodium Level 134L, Potassium Level 4.4, Chloride Level 101, Carbon Dioxide Level 23, Anion Gap 10, Blood Urea Nitrogen 35H, Creatinine 1.1, Estimat Glomerular Filtration Rate > 60, Glucose Level 129H, Calcium Level 9.1, C-Reactive Protein , Quantitative 2.7H Current Medications Medications (Trade) Dose Ordered Sig/Serena Route PRN Reason Start Time Stop Time Status Last Admin Dose Admin Acetaminophen (Tylenol) 650 mg Q4H PRN GT Mild Pain/Temp > 100.5 08/11/17 20:45 09/10/17 20:44 08/30/17 22:31 Albuterol/ Ipratropium (Albuterol/ Ipratropium) 3 ml Q4H PRN HHN Shortness of Breath 08/30/17 09:05 09/04/17 09:04 Amiodarone HCl (Cordarone) 200 mg EVERY 12 HOURS GT 08/28/17 09:00 09/27/17 09:00 09/01/17 09:43 Ceftriaxone Sodium 2 gm/ Dextrose 110 ml @ 220 mls/hr Q24H IVPB 08/28/17 12:00 09/18/17 11:59 08/31/17 11:12 Chlorhexidine Gluconate (Ngoc-Hex 2%) 1 applic DAILY@2000 TOPIC 08/24/17 20:00 09/23/17 19:59 08/31/17 20:46 Daptomycin 400 mg/ Sodium Chloride 110 ml @ 200 mls/hr Q24H IV 08/29/17 10:00 09/18/17 09:59 09/01/17 10:03 Dextrose (Dextrose 50%) STAT PRN IV Hypoglycemia 08/30/17 09:30 09/29/17 09:29 Heparin Sodium (Porcine) (Heparin 5000 units/ml) 5,000 units EVERY 12 HOURS SUBQ 08/28/17 09:00 09/27/17 09:00 09/01/17 08:22 Levetiracetam (Keppra) 250 mg BID GT 08/28/17 09:00 09/27/17 09:00 09/01/17 08:18 Metronidazole (Flagyl) 500 mg Q8HR ORAL 08/20/17 14:00 09/03/17 23:00 09/01/17 05:45 Ondansetron HCl (Zofran) 4 mg Q6H PRN IVP Nausea & Vomiting 08/28/17 08:30 09/27/17 08:29 Pantoprazole (Protonix) 40 mg DAILY IV 08/01/17 09:00 09/30/17 08:59 09/01/17 08:18 Phenytoin (Dilantin) 100 mg Q12HR GT 08/09/17 16:00 09/08/17 15:59 09/01/17 08:18 Polyethylene Glycol (Miralax) 17 gm DAILYPRN PRN ORAL Constipation 08/28/17 08:00 09/27/17 08:00 Efe ChiangKaleida HealthLizet Dobbs NP Sep 01, 2017 10:11
[2017-09-01 12:00] VITALS: BP 103/68
[2017-09-01] MEDS: cefTRIAXone 2 GM in D5W 110 ML IVPB SCH (12:20)
--- NOTE | 2017-09-01 15:36 | Infectious Diseases Prog Note ---
Assessment/Plan Assessment/Plan ASSESSMENT: The patient is a 62-year-old male with: Fever, resolved- - ? due to mucous plug vs parapneumonic effusion; and to PICC line infection -HIDA scan neg -CXR 08/17: Interval expansion of the previously atelectatic right lung. Considerable infiltrate versus edema throughout the right lung. Increasing left basilar atelectasis and possibly infiltrate -CXR 08/16: Complete opacification right hemithorax. Probably due to atelectasis related to endobronchial occlusion at the level of the right mainstem bronchus. There may also be a significant component of pleural effusion. PICC line infection with CoNS, -Bcx 08/21 Neg -s/p removal PICC 08/18; s/p new pICC line 08/25 -Bcx 08/15 1/ + PICC line, peripheral NTD; Bcx 08/18 : 2/4 CoNS; cath tip cx CoNS -echo 07/31: limited views, no obvious vegetations or significant valve abnormalities Recent Blood Cx: CoNS probable line infection (PICC from out side facility was removed on and replaced on 08/03 ) Complete opacification R lung- , much improved now, possibly due to mucous plug ; recurrent -CXR 08/22: Interim near complete opacification of the right lung, probably due to near complete right lung atelectasis, given evidence of bronchial occlusion and mediastinal shift indicating volume loss. Component of pleural fluid also possible,however.New or increased moderate left pleural effusion ? ventilatory-associated pneumonia Scx: MDR PSA (S gentamicin, Colistin), repeat sp cx 08/13 normal pipo- Low suspicion overall for TB CCT: Extensive interstitial opacities throughout the right lung as well as groundglass opacities. Large differential, suspect on the basis of pulmonary edema, particularly given evidence of edema elsewhere, but possibility of infection, including possible tuberculosis, should also be considered. Right lower lobe consolidation, may reflect pneumonia (chest x-ray:Considerably worse pleural and parenchymal disease on the right. Slightly worse in pleural and parenchymal disease on the left, over 3 days ) Influenza: Neg -AFB sp cx smear neg x3, cx p, MTB PCR neg -Blatomyces ab neg, CrAg neg, Histoplasma ID neg, CF not done due to anticomplement activity; Cocci ab pending -HIV ag/ab neg -TB spot + (suspect latent rather than active, final AFB cx pending), MTB PCR neg Multiple decubitus of lower extremity. Left heel unstageable decubitus (no purulent discharge.) probable osteo per bone scan -no wound cx obtained NM : flow, blood pool, static activity involving the calcaneal tuberosity on the left. This is worrisome for acute osteomyelitis Sacral Wnd :- no signs of infection -Wnd Cx : MDR Kleb abd MDR ACB (colonizers) ESR: 130 , CRP : 8; ESR 111, CRp 2.7 09/01 Leukocytosis, recurrent,increasing -r/o JENNIE, uti, bacteremia -Cdiff neg Elevated LFTs; resolving 08/12 CT C/A/P : no abscess. Evidence of anasarca, with generalized edema of the subcutaneous fat,retroperitoneal and mesenteric fat, trace ascites, small left pleural effusion. Possible wall thickening of proximal and mid transverse and ascending colon. Could represent colitis although possibly artifactual due to under distention. Very questionable wall thickening of the duodenum and proximal jejunum, if real could indicate duodenitis/enteritis and/or peptic ulcer disease. Gas bubbles in the anterior aspect of the right rectus abdominis muscle belly. Cholelithiasis. Diffusely somewhat prominent pancreas, probably baseline for this patient, but the possibility of acute pancreatitis should be considered. Scattered punctate microcalcifications may represent sequelae of chronic calcifying pancreatitis, versus arterial calcifications. Ectasia of the pancreatic duct could also indicate chronic calcified pancreatitis no definite pancreatic head mass, although evaluation for such is limited in the absence of IVcontrast US Borderline gallbladder wall thickening, more likely artifact due to underdistention than real. Diarrhea CT: ? wall thickening of proximal and mid transverse and ascending colon.duodenum and proximal jejunum, and probable acute pancreatitis should be considered. ? Clostridium difficile: Neg Pl effusion: exudate , Pr : 4.4 , cell count : P ro empyema 08/12 SP ultrasound-guided thoracentesis, of 400 cc BETSY Diabetes. Anemia. GERD. Hypertension. History of TBI. Seizure disorder PLAN: -For possible acute OM of L heel- will treat empirically, given no obtainable cultures, with IV Daptomycin 6mg/kg qd and Ceftriaxone 2g IV qd(abx d#/) and Flagyl #13/14 (additional anaerobic coverage of osteo ) (Vanco switched to Dapto given CoNS bacteremia on 08/15 from PICC line) 08/19 SP INH colistin 14/14 for MDR PsA PNA 08/18 SP IV Vancomycin #4 3/13 SP Micafungin #5 3/12 SP Meropenem #10 3/11 SP IV Colistin #9 3/4 SP vancomycin d# 9 and Zosyn and Gent d# 4 3/ SP cefepime day # 5 -CXR, 2 sets of Bcx, u/a w reflex -Cdiff if diarrhea PICC line care Monitor chest x-ray f/u cocci ab, fungitell, AFB final cultures Trend WBC CBC am Discussed with RN. Subjective Allergies: Coded Allergies: No Known Allergies (Unverified , 07/31/17) Subjective afebrile increasing leukocytosis Objective Vital Signs Last 24 Hour Vital Signs Date Time Temp Pulse Resp B/P (MAP) Pulse Ox O2 Delivery O2 Flow Rate FiO2 09/01/17 12:32 115 19 50 09/01/17 12:00 119 09/01/17 12:00 30 09/01/17 12:00 98.1 118 22 103/68 92 Mechanical Ventilator 30 98.1 09/01/17 10:45 109 18 30 09/01/17 08:48 106 18 30 09/01/17 08:00 30 09/01/17 08:00 105 09/01/17 08:00 98.1 109 18 106/69 99 Mechanical Ventilator 30 98.1 09/01/17 06:50 108 18 30 09/01/17 05:10 115 18 30 09/01/17 04:00 97.9 107 19 100/68 100 Mechanical Ventilator 40.0 30 97.9 107 09/01/17 04:00 30 09/01/17 03:31 108 09/01/17 03:11 110 18 30 09/01/17 01:18 110 17 30 09/01/17 00:00 97.8 108 19 129/84 100 Mechanical Ventilator 40.0 30 97.8 104 09/01/17 00:00 30 08/31/17 23:30 110 08/31/17 22:51 107 18 30 08/31/17 20:45 97 18 30 08/31/17 20:00 98.1 104 19 121/81 100 Mechanical Ventilator 40.0 30 98.1 104 08/31/17 20:00 30 08/31/17 19:02 103 19 30 08/31/17 16:55 104 18 30 08/31/17 16:00 30 08/31/17 16:00 99 08/31/17 16:00 98.0 104 18 106/67 100 Mechanical Ventilator 30 98.0 Height (Feet): 6 Height (Inches): 0.00 Weight (Pounds): 134 Objective HEENT: atraumatic Neck: full ROM Heart: HR/BP stable, HR/BP unstable Abdomen: soft, active bowel sounds, feeding tube Extremities: no C/C/E Decubiti: location Laboratory Tests Test 09/01/17 03:40 White Blood Count 17.1 K/UL (4.8-10.8) H Red Blood Count 3.29 M/UL (4.70-6.10) L Hemoglobin 9.6 G/DL (14.2-18.0) L Hematocrit 28.7 % (42.0-52.0) L Mean Corpuscular Volume 87 FL (80-99) Mean Corpuscular Hemoglobin 29.1 PG (27.0-31.0) Mean Corpuscular Hemoglobin Concent 33.4 G/DL (32.0-36.0) Red Cell Distribution Width 16.8 % (11.6-14.8) H Platelet Count 457 K/UL (150-450) H Mean Platelet Volume 6.4 FL (6.5-10.1) L Neutrophils (%) (Auto) 80.1 % (45.0-75.0) H Lymphocytes (%) (Auto) 9.8 % (20.0-45.0) L Monocytes (%) (Auto) 7.1 % (1.0-10.0) Eosinophils (%) (Auto) 2.6 % (0.0-3.0) Basophils (%) (Auto) 0.4 % (0.0-2.0) Erythrocyte Sedimentation Rate 111 MM/HR (0-20) H Sodium Level 134 MMOL/L (136-145) L Potassium Level 4.4 MMOL/L (3.5-5.1) Chloride Level 101 MMOL/L (98-107) Carbon Dioxide Level 23 MMOL/L (21-32) Anion Gap 10 mmol/L (5-15) Blood Urea Nitrogen 35 mg/dL (7-18) H Creatinine 1.1 MG/DL (0.55-1.30) Estimat Glomerular Filtration Rate > 60 mL/min (>60) Glucose Level 129 MG/DL (74-106) H Calcium Level 9.1 MG/DL (8.5-10.1) C-Reactive Protein, Quantitative 2.7 mg/dL (0.00-0.90) H Current Medications Medications (Trade) Dose Ordered Sig/Serena Route PRN Reason Start Time Stop Time Status Last Admin Dose Admin Acetaminophen (Tylenol) 650 mg Q4H PRN GT Mild Pain/Temp > 100.5 08/11/17 20:45 09/10/17 20:44 08/30/17 22:31 Albuterol/ Ipratropium (Albuterol/ Ipratropium) 3 ml Q4H PRN HHN Shortness of Breath 08/30/17 09:05 09/04/17 09:04 Amiodarone HCl (Cordarone) 200 mg EVERY 12 HOURS GT 08/28/17 09:00 09/27/17 09:00 09/01/17 09:43 Ceftriaxone Sodium 2 gm/ Dextrose 110 ml @ 220 mls/hr Q24H IVPB 08/28/17 12:00 09/18/17 11:59 09/01/17 12:20 Chlorhexidine Gluconate (Ngoc-Hex 2%) 1 applic DAILY@2000 TOPIC 08/24/17 20:00 09/23/17 19:59 08/31/17 20:46 Daptomycin 400 mg/ Sodium Chloride 110 ml @ 200 mls/hr Q24H IV 08/29/17 10:00 09/18/17 09:59 09/01/17 10:03 Dextrose (Dextrose 50%) STAT PRN IV Hypoglycemia 08/30/17 09:30 09/29/17 09:29 Heparin Sodium (Porcine) (Heparin 5000 units/ml) 5,000 units EVERY 12 HOURS SUBQ 08/28/17 09:00 09/27/17 09:00 09/01/17 08:22 Levetiracetam (Keppra) 250 mg BID GT 08/28/17 09:00 09/27/17 09:00 09/01/17 08:18 Metronidazole (Flagyl) 500 mg Q8HR ORAL 3/17/18 14:00 09/03/17 23:00 09/01/17 13:40 Ondansetron HCl (Zofran) 4 mg Q6H PRN IVP Nausea & Vomiting 08/28/17 08:30 09/27/17 08:29 Pantoprazole (Protonix) 40 mg DAILY IV 08/01/17 09:00 09/30/17 08:59 09/01/17 08:18 Phenytoin (Dilantin) 100 mg Q12HR GT 08/09/17 16:00 09/08/17 15:59 09/01/17 08:18 Polyethylene Glycol (Miralax) 17 gm DAILYPRN PRN ORAL Constipation 08/28/17 08:00 09/27/17 08:00 Francisca Bullock M.D. Sep 01, 2017 15:36
[2017-09-01 16:00] VITALS: BP 111/69
[2017-09-01 19:00] LABS: APPEARANCE,URINE SLIGHTLY CLOUDY; BILIRUBIN, URINE NEGATIVE (NEGATIVE); GLUCOSE, URINE (UA) 1+ (NEGATIVE); KETONES,URINE 1+ (NEGATIVE); LEUKOCYTE ESTERASE ,URINE 3+ (NEGATIVE); NITRITE,URINE NEGATIVE (NEGATIVE); PH,URINE 6 (4.5-8.0); PROTEIN,URINE 2+ (NEGATIVE); UROBILINOGEN,URINE NORMAL MG/DL (0.0-1.0)
[2017-09-01 19:01] LABS: COLOR,URINE YELLOW
[2017-09-01 20:00] VITALS: BP 115/69
[2017-09-01] MEDS: Dyna-Hex 2% Top Sol 2oz TOPIC SCH (20:40)
[2017-09-01] MEDS: Acetaminophen 650mg/20.3ml GT PRN (20:58)
--- NOTE | 2017-09-01 23:41 | General Progress Note ---
Assessment/Plan Assessment/Plan 1. Anemia of chronic disease. Monitor closely. --> ESR 134. Hemoglobin has been above goal. --> Anemia workup reviewed. --> Iron 37, TIBC 99, Vit B12 535, Folate 11.4 --> Transfuse if hgb <7 --> Blood transfusion not required unless symptomatic or hgb below goal. 2. Leukocytosis, likely secondary to infection. --> On antibiotics. --> Worsened from yesterday. --> Monitor and trend cbc 3. Coagulopathy.Likely due to decreased vitamin K intake. Imaging reviewed. --> Prominent pancreas, calcification is noted. --> On anticoagulation -- heparin sq 4. Dysphagia, status post percutaneous endoscopic gastrostomy tube. 5. Cholelithiasis is noted on ultrasound. Borderline diabetic --> HIDA scan is negative. 6. Transaminitis has since improved, potentially secondary to medications v other causes Subjective Date patient seen: Sep 01, 2017 Constitutional: Denies: no symptoms, chills, diaphoresis, fever, malaise, weakness, other HEENT: Denies: no symptoms, eye pain, blurred vision, tearing, double vision, ear pain, ear discharge, nose pain, nose congestion, throat pain, throat swelling, mouth pain, mouth swelling, other Cardiovascular: Denies: no symptoms, chest pain, edema, irregular heart rate, lightheadedness, palpitations, syncope, other Respiratory: Denies: no symptoms, cough, orthopnea, shortness of breath, SOB with excertion, SOB at rest, sputum, stridor, wheezing, other Gastrointestinal/Abdominal: Denies: no symptoms, abdomen distended, abdominal pain, black stools, tarry stools, blood in stool, constipated, diarrhea, difficulty swallowing, nausea, poor appetite, poor fluid intake, rectal bleeding , vomiting, other Genitourinary: Denies: no symptoms, burning, discharge, frequency, flank pain, hematuria, incontinence, pain, urgency, other Neurologic/Psychiatric: Denies: no symptoms, anxiety, depressed, emotional problems, headache, numbness, paresthesia, pre-existing deficit, seizure, tingling, tremors, weakness, other Hematologic/Lymphatic: Reports: anemia Allergies: Coded Allergies: No Known Allergies (Unverified , 07/31/17) Subjective On vent. Leukocytosis worsened from yesterday. No fever. Tachycardic. Objective Last 24 Hour Vital Signs Date Time Temp Pulse Resp B/P (MAP) Pulse Ox O2 Delivery O2 Flow Rate FiO2 09/01/17 21:09 128 25 30 09/01/17 20:58 101.8 09/01/17 20:39 124 09/01/17 20:00 30 09/01/17 20:00 99.9 122 30 115/69 97 Mechanical Ventilator 30 99.9 09/01/17 19:01 120 25 30 09/01/17 16:58 111 20 50 09/01/17 16:00 111 09/01/17 16:00 98.1 113 23 111/69 95 Mechanical Ventilator 30 98.1 09/01/17 16:00 30 09/01/17 15:00 110 23 50 09/01/17 12:32 115 19 50 09/01/17 12:00 119 09/01/17 12:00 30 09/01/17 12:00 98.1 118 22 103/68 92 Mechanical Ventilator 30 98.1 09/01/17 10:45 109 18 30 09/01/17 08:48 106 18 30 09/01/17 08:00 30 09/01/17 08:00 105 09/01/17 08:00 98.1 109 18 106/69 99 Mechanical Ventilator 30 98.1 09/01/17 06:50 108 18 30 09/01/17 05:10 115 18 30 09/01/17 04:00 97.9 107 19 100/68 100 Mechanical Ventilator 40.0 30 97.9 107 09/01/17 04:00 30 09/01/17 03:31 108 09/01/17 03:11 110 18 30 09/01/17 01:18 110 17 30 09/01/17 00:00 97.8 108 19 129/84 100 Mechanical Ventilator 40.0 30 97.8 104 09/01/17 00:00 30 Intake and Output 08/31/17 09/01/17 19:00 07:00 Intake Total 1030 ml 860 ml Output Total 700 ml 500 ml Balance 330 ml 360 ml Free Water 30 ml IV Total 220 ml Tube Feeding 660 ml 660 ml Other 120 ml 200 ml Output Urine Total 700 ml 500 ml # Bowel Movements 2 2 Laboratory Tests 09/01/17 03:40: White Blood Count 17.1H, Red Blood Count 3.29L, Hemoglobin 9.6L, Hematocrit 28.7L, Mean Corpuscular Volume 87, Mean Corpuscular Hemoglobin 29.1, Mean Corpuscular Hemoglobin Concent 33.4, Red Cell Distribution Width 16.8H, Platelet Count 457H, Mean Platelet Volume 6.4L, Neutrophils (%) (Auto) 80.1H, Lymphocytes (%) (Auto) 9.8L, Monocytes (%) (Auto) 7.1, Eosinophils (%) (Auto) 2.6, Basophils (%) (Auto) 0.4, Erythrocyte Sedimentation Rate 111H, Sodium Level 134L, Potassium Level 4.4, Chloride Level 101, Carbon Dioxide Level 23, Anion Gap 10, Blood Urea Nitrogen 35H, Creatinine 1.1, Estimat Glomerular Filtration Rate > 60, Glucose Level 129H, Calcium Level 9.1, C-Reactive Protein , Quantitative 2.7H 09/01/17 16:00: Urine Color Yellow, Urine Appearance Slightly cloudy, Urine pH 6, Urine Specific [place] 1.010, Urine Protein 2+H, Urine Glucose (UA) 1+H, Urine Ketones 1+H, Urine Occult Blood 2+H, Urine Nitrite Negative, Urine Bilirubin Negative, Urine Urobilinogen Normal, Urine Leukocyte Esterase 3+H, Urine RBC 5- 10H, Urine WBC TntcH, Urine Squamous Epithelial Cells Few, Urine Bacteria Few, Urine Yeast ManyH Height (Feet): 6 Height (Inches): 0.00 Weight (Pounds): 134 Respiratory/Chest: decreased breath sounds Abdomen: soft Edema: trace edema López Vásquez MD Sep 01, 2017 23:41
[2017-09-02] VITALS: BP 110/65
[2017-09-02 04:00] VITALS: BP 101/71
[2017-09-02 05:16] LABS: HEMATOCRIT 30.8 % (42.0-52.0); HEMOGLOBIN 10.1 G/DL (14.2-18.0); MEAN CORPUSCULAR VOLUME 88 FL (80-99); PLATELET COUNT 387 K/UL (150-450); RED BLOOD COUNT 3.52 M/UL (4.70-6.10)
[2017-09-02] MEDS: metroNIDAZOLE 500mg tab ORAL SCH (05:30)
[2017-09-02 05:39] LABS: ALANINE AMINOTRANSFERASE 12 U/L (12-78); ALBUMIN 2.1 G/DL (3.4-5.0); ALBUMIN/GLOBULIN RATIO 0.3 (1.0-2.7); ALKALINE PHOSPHATASE 218 U/L (46-116); ANION GAP 9 mmol/L (5-15); ASPARTATE AMINO TRANSFERASE 21 U/L (15-37); BILIRUBIN,TOTAL 0.2 MG/DL (0.2-1.0); BLOOD UREA NITROGEN 44 mg/dL (7-18); CALCIUM 8.8 MG/DL (8.5-10.1); CARBON DIOXIDE 22 MMOL/L (21-32); CHLORIDE 103 MMOL/L (98-107); CREATININE 1.3 MG/DL (0.55-1.30); POTASSIUM 4.5 MMOL/L (3.5-5.1); SODIUM 134 MMOL/L (136-145)
[2017-09-02 05:49] LABS: WHITE BLOOD COUNT 34.3 K/UL (4.8-10.8)
[2017-09-02 08:35] VITALS: BP 109/69
[2017-09-02] MEDS: DAPTOmycin 400 MG in NS 110 ML IV SCH (09:49)
[2017-09-02] MEDS: Phenytoin Susp 100mg/4ml GT SCH ×2 (09:50→20:49)
[2017-09-02] MEDS: Pantoprazole Inj IV SCH (09:50)
[2017-09-02] MEDS: Amiodarone 200mg tab GT SCH ×2 (09:50→20:49)
[2017-09-02] MEDS: levETIRAcetam 500mg/5ml Liquid GT SCH ×2 (09:50→18:03)
[2017-09-02] MEDS: Heparin 5000 units/ml inj SUBQ SCH ×2 (09:52→20:51)
[2017-09-02] MEDS ORDERED: Sterile Water Irrig 1000ml IRRIG ONE (09:59)
[2017-09-02] MEDS ORDERED: Tubing IV Secondary IV ONE (09:59)
[2017-09-02] MEDS ORDERED: NS 275ml ONE (09:59)
--- NOTE | 2017-09-02 10:17 | Pulmonology Progress Note ---
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 pleural effusion s/p thoracentesis-400cc Dysphagia, feeding by G-tube seizure disorder functional quadriplegia multiple decub POA: sacral, L heel DM HTN anemia of chronic disease PLAN OF CARE FARZANA vent/trach care, leuk today-34, fever 09/01 urine cx pending get blood cx , CXR today and stool C dif ( prior 08/14 negative) abx as per ID management last CXR 08/29 - Markedly improved right and slightly improved left infiltrates versus edema, over 6 days previous CXR 08/[address] chest done prior pulmonary toilet, suctioning, sputum AFB x 3 negative, fungal serology negative TB spot + low suspicion for TB, per ID suspect latent rather than active PICC removed Last blood cx 08/21 negative New PICC 08/25 inserted abx per ID management prob VAP, sputum cx + Pseudomonas MDR, influenza negative, bone scan + high suspicion for acute OM L calcaneus, will need termite control technician abx - per ID management' ECHO with pEF [id number] and RVSP of 27 seizure precautions continue Keppra and Dilantin DVT GI prophylaxis Venous Duplex LE negative BP, BS monitoring and management HIDA negative bowel regimen monitor renal parameters, correct lyres as needed anemia w/up c/w anemia of chronic disease monitor HH, transfuse prn to keep Hgb above 7, heme follows wound care as per wound nurse recs podiatry eval noted and appreciated supportive care DNR/DNI status dc plan need Department of Health clearance case discussed and evaluated by supervising physician Subjective Allergies: Coded Allergies: No Known Allergies (Unverified , 07/31/17) Subjective no fever now, but fever of 102- on 09/01, leukocytosis -34 no signs of resp distress on current settings off isolation Objective Last 24 Hour Vital Signs Date Time Temp Pulse Resp B/P (MAP) Pulse Ox O2 Delivery O2 Flow Rate FiO2 09/02/17 09:30 108 18 30 09/02/17 08:35 98.8 109 24 109/69 98 Mechanical Ventilator 30 98.8 09/02/17 07:30 107 18 30 09/02/17 05:25 110 18 30 09/02/17 04:00 30 09/02/17 04:00 97.8 105 19 101/71 100 Mechanical Ventilator 30 97.8 09/02/17 03:50 116 09/02/17 02:35 110 20 30 09/02/17 01:20 109 23 30 09/02/17 00:17 113 21 Mechanical Ventilator 30 09/02/17 00:16 113 21 30 09/02/17 00:00 98.5 113 22 110/65 99 Mechanical Ventilator 30 98.5 09/02/17 00:00 30 09/01/17 23:59 116 09/01/17 21:28 98.5 09/01/17 21:09 128 25 30 09/01/17 20:58 101.8 09/01/17 20:39 124 09/01/17 20:00 30 09/01/17 20:00 99.9 122 30 115/69 97 Mechanical Ventilator 30 99.9 09/01/17 19:01 120 25 30 09/01/17 16:58 111 20 50 09/01/17 16:00 111 09/01/17 16:00 98.1 113 23 111/69 95 Mechanical Ventilator 30 98.1 09/01/17 16:00 30 09/01/17 15:00 110 23 50 09/01/17 12:32 115 19 50 09/01/17 12:00 119 09/01/17 12:00 30 09/01/17 12:00 98.1 118 22 103/68 92 Mechanical Ventilator 30 98.1 09/01/17 10:45 109 18 30 Intake and Output 09/01/17 09/02/17 19:00 07:00 Intake Total 885 ml 705 ml Output Total 400 ml 450 ml Balance 485 ml 255 ml IV Total 220 ml Tube Feeding 605 ml 605 ml Other 60 ml 100 ml Output Urine Total 400 ml 450 ml # Bowel Movements 1 2 Objective General Appearance: no acute distress, bedridden, vent dependent male in NAD on Vent AC 550-18-30% PEEP 5 HEENT: status post trach with Shiley#[id number], secretions small yellow, thin Respiratory/Chest: no respiratory distress, BS clear Cardiovascular: normal rate, regular rhythm - SR on tele, PICC LUE intact Abdomen: normal bowel sounds, soft, non tender, G tube, Mishra Skin: L heel and sacral decub POA Neurologic/Psychiatric: abnormal gait, contracted, poorly responsive Microbiology Date/Time Source Procedure Growth Status 09/01/17 16:00 Urine,Clean Catch Urine Culture - Preliminary Resulted Laboratory Tests 09/01/17 16:00: Urine Color Yellow, Urine Appearance Slightly cloudy, Urine pH 6, Urine Specific [place] 1.010, Urine Protein 2+H, Urine Glucose (UA) 1+H, Urine Ketones 1+H, Urine Occult Blood 2+H, Urine Nitrite Negative, Urine Bilirubin Negative, Urine Urobilinogen Normal, Urine Leukocyte Esterase 3+H, Urine RBC 5- 10H, Urine WBC TntcH, Urine Squamous Epithelial Cells Few, Urine Bacteria Few, Urine Yeast ManyH 09/02/17 04:55: White Blood Count 34.3#*H, Red Blood Count 3.52L, Hemoglobin 10.1L, Hematocrit 30.8L, Mean Corpuscular Volume 88, Mean Corpuscular Hemoglobin 28.8, Mean Corpuscular Hemoglobin Concent 32.8, Red Cell Distribution Width 17.0H, Platelet Count 387, Mean Platelet Volume 6.7, Neutrophils (%) (Auto) , Lymphocytes (%) (Auto) , Monocytes (%) (Auto) , Eosinophils (%) (Auto) , Basophils (%) (Auto) , Differential Total Cells Counted 100, Neutrophils % ( Manual) 91H, Lymphocytes % (Manual) 8L, Monocytes % (Manual) 1, Eosinophils % ( Manual) 0, Basophils % (Manual) 0, Band Neutrophils 0, Platelet Estimate Adequate, Platelet Morphology Normal, Anisocytosis 1+, Sodium Level 134L, Potassium Level 4.5, Chloride Level 103, Carbon Dioxide Level 22, Anion Gap 9, Blood Urea Nitrogen 44H, Creatinine 1.3, Estimat Glomerular Filtration Rate 55.8 , Glucose Level 140H, Calcium Level 8.8, Total Bilirubin 0.2, Aspartate Amino Transf (AST/SGOT) 21, Alanine Aminotransferase (ALT/SGPT) 12, Alkaline Phosphatase 218H, Total Protein 9.2H, Albumin 2.1L, Globulin 7.1, Albumin/ Globulin Ratio 0.3L Current Medications Medications (Trade) Dose Ordered Sig/Serena Route PRN Reason Start Time Stop Time Status Last Admin Dose Admin Acetaminophen (Tylenol) 650 mg Q4H PRN GT Mild Pain/Temp > 100.5 08/11/17 20:45 09/10/17 20:44 09/01/17 20:58 Albuterol/ Ipratropium (Albuterol/ Ipratropium) 3 ml Q4H PRN HHN Shortness of Breath 08/30/17 09:05 09/04/17 09:04 Amiodarone HCl (Cordarone) 200 mg EVERY 12 HOURS GT 08/28/17 09:00 09/27/17 09:00 09/02/17 09:50 Ceftriaxone Sodium 2 gm/ Dextrose 110 ml @ 220 mls/hr Q24H IVPB 08/28/17 12:00 09/18/17 11:59 09/01/17 12:20 Chlorhexidine Gluconate (Ngoc-Hex 2%) 1 applic DAILY@2000 TOPIC 08/24/17 20:00 09/23/17 19:59 09/01/17 20:40 Daptomycin 400 mg/ Sodium Chloride 110 ml @ 200 mls/hr Q24H IV 08/29/17 10:00 09/18/17 09:59 09/02/17 09:49 Dextrose (Dextrose 50%) STAT PRN IV Hypoglycemia 08/30/17 09:30 09/29/17 09:29 Heparin Sodium (Porcine) (Heparin 5000 units/ml) 5,000 units EVERY 12 HOURS SUBQ 08/28/17 09:00 09/27/17 09:00 09/02/17 09:52 Levetiracetam (Keppra) 250 mg BID GT 08/28/17 09:00 09/27/17 09:00 09/02/17 09:50 Metronidazole (Flagyl) 500 mg Q8HR ORAL 08/20/17 14:00 09/03/17 23:00 09/02/17 05:30 Ondansetron HCl (Zofran) 4 mg Q6H PRN IVP Nausea & Vomiting 08/28/17 08:30 09/27/17 08:29 Pantoprazole (Protonix) 40 mg DAILY IV 08/01/17 09:00 09/30/17 08:59 09/02/17 09:50 Phenytoin (Dilantin) 100 mg Q12HR GT 08/09/17 16:00 09/08/17 15:59 09/02/17 09:50 Polyethylene Glycol (Miralax) 17 gm DAILYPRN PRN ORAL Constipation 08/28/17 08:00 09/27/17 08:00 Efe ([facility])[place] NP Sep 02, 2017 10:17
[2017-09-02 11:41] LABS: HEMATOCRIT 27.3 % (42.0-52.0); HEMOGLOBIN 8.6 G/DL (14.2-18.0); MEAN CORPUSCULAR VOLUME 88 FL (80-99); PLATELET COUNT 363 K/UL (150-450); RED BLOOD COUNT 3.11 M/UL (4.70-6.10); RED CELL DISTRIBUTION WIDTH 17.2 % (11.6-14.8)
[2017-09-02 11:42] LABS: WHITE BLOOD COUNT 30.5 K/UL (4.8-10.8)
[2017-09-02 12:05] VITALS: BP 106/65
[2017-09-02] MEDS: cefTRIAXone 2 GM in D5W 110 ML IVPB SCH (12:27)
--- NOTE | 2017-09-02 13:31 | Infectious Diseases Prog Note ---
Assessment/Plan Assessment/Plan ASSESSMENT: The patient is a 62-year-old male with: Fever, recurrent/worsening leukocytosis- r/o Cdiff, UTI, bacteremia, PNA (JENNIE) -09/01 u/a wbc tntc; ucx p CXR p Bcx p Cdiff p -08/14 Cdiff neg -HIDA scan neg -CXR 08/17: Interval expansion of the previously atelectatic right lung. Considerable infiltrate versus edema throughout the right lung. Increasing left basilar atelectasis and possibly infiltrate -CXR 08/16: Complete opacification right hemithorax. Probably due to atelectasis related to endobronchial occlusion at the level of the right mainstem bronchus. There may also be a significant component of pleural effusion. Diarrhea- r/o Cdiff PICC line infection with CoNS, -Bcx 08/21 Neg -s/p removal PICC 08/18; s/p new pICC line 08/25 -Bcx 08/15 1/ + PICC line, peripheral NTD; Bcx 08/18 : 2/4 CoNS; cath tip cx CoNS -echo 07/31: limited views, no obvious vegetations or significant valve abnormalities Recent Blood Cx: CoNS probable line infection (PICC from out side facility was removed on and replaced on 08/03 ) Complete opacification R lung- , much improved now, possibly due to mucous plug ; recurrent -CXR 08/22: Interim near complete opacification of the right lung, probably due to near complete right lung atelectasis, given evidence of bronchial occlusion and mediastinal shift indicating volume loss. Component of pleural fluid also possible,however.New or increased moderate left pleural effusion ? ventilatory-associated pneumonia Scx: MDR PSA (S gentamicin, Colistin), repeat sp cx 08/13 normal pipo- Low suspicion overall for TB CCT: Extensive interstitial opacities throughout the right lung as well as groundglass opacities. Large differential, suspect on the basis of pulmonary edema, particularly given evidence of edema elsewhere, but possibility of infection, including possible tuberculosis, should also be considered. Right lower lobe consolidation, may reflect pneumonia (chest x-ray:Considerably worse pleural and parenchymal disease on the right. Slightly worse in pleural and parenchymal disease on the left, over 3 days ) Influenza: Neg -AFB sp cx smear neg x3, cx p, MTB PCR neg -Blatomyces ab neg, CrAg neg, Histoplasma ID neg, CF not done due to anticomplement activity; Cocci ab pending -HIV ag/ab neg -TB spot + (suspect latent rather than active, final AFB cx pending), MTB PCR neg Multiple decubitus of lower extremity. Left heel unstageable decubitus (no purulent discharge.) probable osteo per bone scan -no wound cx obtained NM : flow, blood pool, static activity involving the calcaneal tuberosity on the left. 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 Evidence of anasarca, with generalized edema of the subcutaneous fat,retroperitoneal and mesenteric fat, trace ascites, small left pleural effusion. Possible wall thickening of proximal and mid transverse and ascending colon. Could represent colitis although possibly artifactual due to under distention. Very questionable wall thickening of the duodenum and proximal jejunum, if real could indicate duodenitis/enteritis and/or peptic ulcer disease. Gas bubbles in the anterior aspect of the right rectus abdominis muscle belly. Cholelithiasis. Diffusely somewhat prominent pancreas, probably baseline for this patient, but the possibility of acute pancreatitis should be considered. Scattered punctate microcalcifications may represent sequelae of chronic calcifying pancreatitis, versus arterial calcifications. Ectasia of the pancreatic duct could also indicate chronic calcified pancreatitis no definite pancreatic head mass, although evaluation for such is limited in the absence of IVcontrast US Borderline gallbladder wall thickening, more likely artifact due to underdistention than real. Diarrhea CT: ? wall thickening of proximal and mid transverse and ascending colon.duodenum and proximal jejunum, and probable acute pancreatitis should be considered. ? Clostridium difficile: Neg Pl effusion: exudate , Pr : 4.4 , cell count : P ro empyema 08/12 SP ultrasound-guided thoracentesis, of 400 cc BETSY Diabetes. Anemia. GERD. Hypertension. History of TBI. Seizure disorder PLAN: -Switch IV Daptomycin and Ceftriaxone #26/ and Flagyl #14 to Meropenem and IV Vancomycin given fever and Increased WBC pending repeat cx and CXR -start empiric PO Vancomycin 125mg qid pending Cdiff 08/19 SP INH colistin / for MDR PsA PNA 08/18 SP IV Vancomycin #4 3/13 SP Micafungin #5 3 SP Meropenem #10 3/ SP IV Colistin #9 3/4 SP vancomycin d# 9 and Zosyn and Gent d# 4 3/ SP cefepime day # 5 -f/u CXR, 2 sets of Bcx, ucx, cdiff PICC line care Monitor chest x-ray f/u cocci ab, fungitell, AFB final cultures Trend WBC CBC am Discussed with RN. Subjective Allergies: Coded Allergies: No Known Allergies (Unverified , 07/31/17) Subjective Febrile to 101.5 last night, afebrile in >12hr WBC icnreased to 30 u/a with pyuria bcx p +loose stool Objective Vital Signs Last 24 Hour Vital Signs Date Time Temp Pulse Resp B/P (MAP) Pulse Ox O2 Delivery O2 Flow Rate FiO2 09/02/17 12:08 30 09/02/17 11:19 109 19 30 09/02/17 09:30 108 18 30 09/02/17 08:35 98.8 109 24 109/69 98 Mechanical Ventilator 30 98.8 09/02/17 08:00 30 09/02/17 08:00 109 09/02/17 07:30 107 18 30 09/02/17 05:25 110 18 30 09/02/17 04:00 30 09/02/17 04:00 97.8 105 19 101/71 100 Mechanical Ventilator 30 97.8 09/02/17 03:50 116 09/02/17 02:35 110 20 30 09/02/17 01:20 109 23 30 09/02/17 00:17 113 21 Mechanical Ventilator 30 09/02/17 00:16 113 21 30 09/02/17 00:00 98.5 113 22 110/65 99 Mechanical Ventilator 30 98.5 09/02/17 00:00 30 09/01/17 23:59 116 09/01/17 21:28 98.5 09/01/17 21:09 128 25 30 09/01/17 20:58 101.8 09/01/17 20:39 124 09/01/17 20:00 30 09/01/17 20:00 99.9 122 30 115/69 97 Mechanical Ventilator 30 99.9 3/29/18 19:01 120 25 30 09/01/17 16:58 111 20 50 09/01/17 16:00 111 09/01/17 16:00 98.1 113 23 111/69 95 Mechanical Ventilator 30 98.1 09/01/17 16:00 30 09/01/17 15:00 110 23 50 Height (Feet): 6 Height (Inches): 0.00 Weight (Pounds): 135 Objective HEENT: atraumatic Neck: full ROM Heart: HR/BP stable, HR/BP unstable Abdomen: soft, active bowel sounds, feeding tube Extremities: no C/C/E Decubiti: location Microbiology Date/Time Source Procedure Growth Status 09/01/17 16:00 Urine,Clean Catch Urine Culture - Preliminary Resulted Laboratory Tests Test 09/01/17 16:00 09/02/17 04:55 09/02/17 11:20 Urine Color Yellow Urine Appearance Slightly cloudy Urine pH 6 (4.5-8.0) Urine Specific [place] 1.010 (1.005-1.035) Urine Protein 2+ (NEGATIVE) H Urine Glucose (UA) 1+ (NEGATIVE) H Urine Ketones 1+ (NEGATIVE) H Urine Occult Blood 2+ (NEGATIVE) H Urine Nitrite Negative (NEGATIVE) Urine Bilirubin Negative (NEGATIVE) Urine Urobilinogen Normal MG/DL (0.0-1.0) Urine Leukocyte Esterase 3+ (NEGATIVE) H Urine RBC 5-10 /HPF (0 - 0) H Urine WBC Tntc /HPF (0 - 0) H Urine Squamous Epithelial Cells Few /LPF (NONE/OCC) Urine Bacteria Few /HPF (NONE) Urine Yeast Many /HPF (NONE) H White Blood Count 34.3 K/UL (4.8-10.8) #*H 30.5 K/UL (4.8-10.8) *H Red Blood Count 3.52 M/UL (4.70-6.10) L 3.11 M/UL (4.70-6.10) L Hemoglobin 10.1 G/DL (14.2-18.0) L 8.6 G/DL (14.2-18.0) L Hematocrit 30.8 % (42.0-52.0) L 27.3 % (42.0-52.0) L Mean Corpuscular Volume 88 FL (80-99) 88 FL (80-99) Mean Corpuscular Hemoglobin 28.8 PG (27.0-31.0) 27.7 PG (27.0-31.0) Mean Corpuscular Hemoglobin Concent 32.8 G/DL (32.0-36.0) 31.5 G/DL (32.0-36.0) L Red Cell Distribution Width 17.0 % (11.6-14.8) H 17.2 % (11.6-14.8) H Platelet Count 387 K/UL (150-450) 363 K/UL (150-450) Mean Platelet Volume 6.7 FL (6.5-10.1) 6.8 FL (6.5-10.1) Neutrophils (%) (Auto) % (45.0-75.0) % (45.0-75.0) Lymphocytes (%) (Auto) % (20.0-45.0) % (20.0-45.0) Monocytes (%) (Auto) % (1.0-10.0) % (1.0-10.0) Eosinophils (%) (Auto) % (0.0-3.0) % (0.0-3.0) Basophils (%) (Auto) % (0.0-2.0) % (0.0-2.0) Differential Total Cells Counted 100 Neutrophils % (Manual) 91 % (45-75) H Pending Lymphocytes % (Manual) 8 % (20-45) L Pending Monocytes % (Manual) 1 % (1-10) Eosinophils % (Manual) 0 % (0-3) Basophils % (Manual) 0 % (0-2) Band Neutrophils 0 % (0-8) Platelet Estimate Adequate Pending Platelet Morphology Normal Pending Anisocytosis 1+ Sodium Level 134 MMOL/L (136-145) L Potassium Level 4.5 MMOL/L (3.5-5.1) Chloride Level 103 MMOL/L (98-107) Carbon Dioxide Level 22 MMOL/L (21-32) Anion Gap 9 mmol/L (5-15) Blood Urea Nitrogen 44 mg/dL (7-18) H Creatinine 1.3 MG/DL (0.55-1.30) Estimat Glomerular Filtration Rate 55.8 mL/min (>60) Glucose Level 140 MG/DL (74-106) H Calcium Level 8.8 MG/DL (8.5-10.1) Total Bilirubin 0.2 MG/DL (0.2-1.0) Aspartate Amino Transf (AST/SGOT) 21 U/L (15-37) Alanine Aminotransferase (ALT/SGPT) 12 U/L (12-78) Alkaline Phosphatase 218 U/L (46-116) H Total Protein 9.2 G/DL (6.4-8.2) H Albumin 2.1 G/DL (3.4-5.0) L Globulin 7.1 g/dL Albumin/Globulin Ratio 0.3 (1.0-2.7) L Current Medications Medications (Trade) Dose Ordered Sig/Serena Route PRN Reason Start Time Stop Time Status Last Admin Dose Admin Acetaminophen (Tylenol) 650 mg Q4H PRN GT Mild Pain/Temp > 100.5 08/11/17 20:45 09/10/17 20:44 09/01/17 20:58 Albuterol/ Ipratropium (Albuterol/ Ipratropium) 3 ml Q4H PRN HHN Shortness of Breath 08/30/17 09:05 09/04/17 09:04 Amiodarone HCl (Cordarone) 200 mg EVERY 12 HOURS GT 08/28/17 09:00 09/27/17 09:00 09/02/17 09:50 Ceftriaxone Sodium 2 gm/ Dextrose 110 ml @ 220 mls/hr Q24H IVPB 08/28/17 12:00 09/18/17 11:59 09/02/17 12:27 Chlorhexidine Gluconate (Ngoc-Hex 2%) 1 applic DAILY@2000 TOPIC 08/24/17 20:00 09/23/17 19:59 09/01/17 20:40 Daptomycin 400 mg/ Sodium Chloride 110 ml @ 200 mls/hr Q24H IV 08/29/17 10:00 09/18/17 09:59 09/02/17 09:49 Dextrose (Dextrose 50%) STAT PRN IV Hypoglycemia 08/30/17 09:30 09/29/17 09:29 Heparin Sodium (Porcine) (Heparin 5000 units/ml) 5,000 units EVERY 12 HOURS SUBQ 08/28/17 09:00 09/27/17 09:00 09/02/17 09:52 Levetiracetam (Keppra) 250 mg BID GT 08/28/17 09:00 09/27/17 09:00 09/02/17 09:50 Metronidazole (Flagyl) 500 mg Q8HR ORAL 08/20/17 14:00 09/03/17 23:00 09/02/17 05:30 Ondansetron HCl (Zofran) 4 mg Q6H PRN IVP Nausea & Vomiting 08/28/17 08:30 09/27/17 08:29 Pantoprazole (Protonix) 40 mg DAILY IV 08/01/17 09:00 09/30/17 08:59 09/02/17 09:50 Phenytoin (Dilantin) 100 mg Q12HR GT 08/09/17 16:00 09/08/17 15:59 09/02/17 09:50 Polyethylene Glycol (Miralax) 17 gm DAILYPRN PRN ORAL Constipation 08/28/17 08:00 09/27/17 08:00 Francisca Bullock M.D. Sep 02, 2017 13:31
[2017-09-02] MEDS: Vancomycin oral 125mg/2.5ml ORAL SCH ×3 (15:31→20:49)
[2017-09-02] MEDS: Meropenem 1 GM in D5W 55 ML IVPB SCH ×2 (15:31→21:03)
--- NOTE | 2017-09-02 15:46 | Diagnostic Imaging Report ---
Indication: Reason For Exam: SOB Technique: Portable AP view of the chest Comparison: 08/29/2016 Findings: Heart size and mediastinal contours stable. Tracheostomy tube in PICC line again noted. There are persistent hazy opacities at the left base with likely small layering left pleural effusion. There is mild interstitial opacification/edema. No pneumothorax. Osseous structures are stable. Gastrostomy tube partially visualized. IMPRESSION: Slight interval increase in interstitial opacification/edema compared to the prior exam. Persistent hazy left-sided opacities and likely layering left pleural effusion.
[2017-09-02 16:00] VITALS: BP 112/67
[2017-09-02] MEDS ORDERED: Vancomycin 1250mg/D5W 250ml IVPB ONE (17:00)
[2017-09-02 20:00] VITALS: BP 107/63
[2017-09-02] MEDS: Dyna-Hex 2% Top Sol 2oz TOPIC SCH (20:48)
[2017-09-02] MEDS: Acetaminophen 650mg/20.3ml GT PRN (20:48)
--- NOTE | 2017-09-02 22:38 | General Progress Note ---
Assessment/Plan Assessment/Plan #. Leukocytosis, likely secondary to infection. --> On antibiotics. --> Worsened from yesterday. --> Monitor closely and trend cbc #. Anemia of chronic disease. Monitor closely. --> ESR 134. Hemoglobin has been above goal. --> Anemia workup reviewed. --> Iron 37, TIBC 99, Vit B12 535, Folate 11.4 --> Transfuse if hgb <7 --> Blood transfusion not required unless symptomatic or hgb below goal. #. Coagulopathy. Likely due to decreased vitamin K intake. Imaging reviewed. --> Prominent pancreas, calcification is noted. --> On anticoagulation -- heparin sq #. Dysphagia, status post percutaneous endoscopic gastrostomy tube. #. Cholelithiasis is noted on ultrasound. Borderline diabetic --> HIDA scan is negative. #. Transaminitis has since improved, potentially secondary to medications v other causes Subjective Date patient seen: Sep 02, 2017 Constitutional: Denies: no symptoms, chills, diaphoresis, fever, malaise, weakness, other HEENT: Denies: no symptoms, eye pain, blurred vision, tearing, double vision, ear pain, ear discharge, nose pain, nose congestion, throat pain, throat swelling, mouth pain, mouth swelling, other Cardiovascular: Denies: no symptoms, chest pain, edema, irregular heart rate, lightheadedness, palpitations, syncope, other Respiratory: Denies: no symptoms, cough, orthopnea, shortness of breath, SOB with excertion, SOB at rest, sputum, stridor, wheezing, other Gastrointestinal/Abdominal: Denies: no symptoms, abdomen distended, abdominal pain, black stools, tarry stools, blood in stool, constipated, diarrhea, difficulty swallowing, nausea, poor appetite, poor fluid intake, rectal bleeding , vomiting, other Genitourinary: Denies: no symptoms, burning, discharge, frequency, flank pain, hematuria, incontinence, pain, urgency, other Neurologic/Psychiatric: Denies: no symptoms, anxiety, depressed, emotional problems, headache, numbness, paresthesia, pre-existing deficit, seizure, tingling, tremors, weakness, other Hematologic/Lymphatic: Reports: anemia Allergies: Coded Allergies: No Known Allergies (Unverified , 07/31/17) Subjective On vent. Leukocytosis worsened from yesterday. Tachycardic. Objective Last 24 Hour Vital Signs Date Time Temp Pulse Resp B/P (MAP) Pulse Ox O2 Delivery O2 Flow Rate FiO2 09/02/17 20:48 99.7 09/02/17 20:42 102 18 30 09/02/17 20:00 99.7 101 18 107/63 99 Mechanical Ventilator 30 99.7 09/02/17 20:00 30 09/02/17 19:55 103 09/02/17 19:26 104 19 30 09/02/17 16:50 106 18 30 09/02/17 16:00 98.2 105 22 112/67 100 Mechanical Ventilator 30 98.2 09/02/17 16:00 30 09/02/17 15:31 108 09/02/17 14:50 108 20 30 09/02/17 13:30 106 18 30 09/02/17 12:08 30 09/02/17 12:05 97.9 109 24 106/65 98 Mechanical Ventilator 30 97.9 09/02/17 12:00 107 09/02/17 11:19 109 19 30 09/02/17 09:30 108 18 30 09/02/17 08:35 98.8 109 24 109/69 98 Mechanical Ventilator 30 98.8 09/02/17 08:00 30 09/02/17 08:00 109 09/02/17 07:30 107 18 30 09/02/17 05:25 110 18 30 09/02/17 04:00 30 09/02/17 04:00 97.8 105 19 101/71 100 Mechanical Ventilator 30 97.8 09/02/17 03:50 116 09/02/17 02:35 110 20 30 09/02/17 01:20 109 23 30 09/02/17 00:17 113 21 Mechanical Ventilator 30 09/02/17 00:16 113 21 30 09/02/17 00:00 98.5 113 22 110/65 99 Mechanical Ventilator 30 98.5 09/02/17 00:00 30 09/01/17 23:59 116 Intake and Output 09/01/17 09/02/17 19:00 07:00 Intake Total 885 ml 705 ml Output Total 400 ml 450 ml Balance 485 ml 255 ml IV Total 220 ml Tube Feeding 605 ml 605 ml Other 60 ml 100 ml Output Urine Total 400 ml 450 ml # Bowel Movements 1 2 Laboratory Tests 09/02/17 04:55: White Blood Count 34.3#*H, Red Blood Count 3.52L, Hemoglobin 10.1L, Hematocrit 30.8L, Mean Corpuscular Volume 88, Mean Corpuscular Hemoglobin 28.8, Mean Corpuscular Hemoglobin Concent 32.8, Red Cell Distribution Width 17.0H, Platelet Count 387, Mean Platelet Volume 6.7, Neutrophils (%) (Auto) , Lymphocytes (%) (Auto) , Monocytes (%) (Auto) , Eosinophils (%) (Auto) , Basophils (%) (Auto) , Differential Total Cells Counted 100, Neutrophils % ( Manual) 91H, Lymphocytes % (Manual) 8L, Monocytes % (Manual) 1, Eosinophils % ( Manual) 0, Basophils % (Manual) 0, Band Neutrophils 0, Platelet Estimate Adequate, Platelet Morphology Normal, Anisocytosis 1+, Sodium Level 134L, Potassium Level 4.5, Chloride Level 103, Carbon Dioxide Level 22, Anion Gap 9, Blood Urea Nitrogen 44H, Creatinine 1.3, Estimat Glomerular Filtration Rate 55.8 , Glucose Level 140H, Calcium Level 8.8, Total Bilirubin 0.2, Aspartate Amino Transf (AST/SGOT) 21, Alanine Aminotransferase (ALT/SGPT) 12, Alkaline Phosphatase 218H, Total Protein 9.2H, Albumin 2.1L, Globulin 7.1, Albumin/ Globulin Ratio 0.3L 09/02/17 11:20: White Blood Count 30.5*H, Red Blood Count 3.11L, Hemoglobin 8.6L, Hematocrit 27.3L, Mean Corpuscular Volume 88, Mean Corpuscular Hemoglobin 27.7, Mean Corpuscular Hemoglobin Concent 31.5L, Red Cell Distribution Width 17.2H, Platelet Count 363, Mean Platelet Volume 6.8, Neutrophils (%) (Auto) , Lymphocytes (%) (Auto) , Monocytes (%) (Auto) , Eosinophils (%) (Auto) , Basophils (%) (Auto) , Differential Total Cells Counted 100, Neutrophils % ( Manual) 87H, Lymphocytes % (Manual) 5L, Monocytes % (Manual) 7, Eosinophils % ( Manual) 1, Basophils % (Manual) 0, Band Neutrophils 0, Platelet Estimate Adequate, Platelet Morphology Normal, Anisocytosis 1+, Hypochromasia 1+ Height (Feet): 6 Height (Inches): 0.00 Weight (Pounds): 135 General Appearance: mild distress Respiratory/Chest: decreased breath sounds Abdomen: soft López Vásquez MD Sep 02, 2017 22:38
[2017-09-03] VITALS: BP 111/61
[2017-09-03 04:00] VITALS: BP 102/64
[2017-09-03] MEDS: Meropenem 1 GM in D5W 55 ML IVPB SCH ×3 (05:00→22:41)
[2017-09-03 05:56] LABS: HEMATOCRIT 27.1 % (42.0-52.0); HEMOGLOBIN 9.3 G/DL (14.2-18.0); MEAN CORPUSCULAR VOLUME 87 FL (80-99); PLATELET COUNT 338 K/UL (150-450); RED BLOOD COUNT 3.12 M/UL (4.70-6.10); RED CELL DISTRIBUTION WIDTH 16.4 % (11.6-14.8); WHITE BLOOD COUNT 18.3 K/UL (4.8-10.8)
[2017-09-03 05:57] LABS: ANION GAP 10 mmol/L (5-15); BLOOD UREA NITROGEN 46 mg/dL (7-18); CALCIUM 8.8 MG/DL (8.5-10.1); CARBON DIOXIDE 23 MMOL/L (21-32); CHLORIDE 105 MMOL/L (98-107); CREATININE 1.1 MG/DL (0.55-1.30); POTASSIUM 4.5 MMOL/L (3.5-5.1); SODIUM 138 MMOL/L (136-145)
--- NOTE | 2017-09-03 07:26 | Pulmonology Progress Note ---
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 Persistent hazy left-sided opacities and likely layering left pleural effusion. will get today US guided thoracentesis L pleural effusion and send fluid for cx and gram stain stool C dif 08/06o - negative ( prior 08/14 negative) abx as per ID management, regimen changed 09/02 prior CXR 08/29 - Markedly improved right and slightly improved left infiltrates versus edema, over 6 days previous CXR 08/[address] chest done prior pulmonary toilet, suctioning, sputum AFB x 3 negative, fungal serology negative TB spot + low suspicion for TB, per ID suspect latent rather than active PICC removed Last blood cx 08/21 negative New PICC 08/25 inserted abx per ID management prob VAP, sputum cx + Pseudomonas MDR, influenza negative, bone scan + high suspicion for acute OM L calcaneus, will need group home abx - per ID management' ECHO with pEF [id number] and RVSP of 27 seizure precautions continue Keppra and Dilantin DVT GI prophylaxis Venous Duplex LE negative BP, BS monitoring and management HIDA negative bowel regimen monitor renal parameters, correct lyres as needed anemia w/up c/w anemia of chronic disease monitor HH, transfuse prn to keep Hgb above 7, heme follows wound care as per wound nurse recs podiatry eval noted and appreciated supportive care DNR/DNI status dc plan need Department of Health clearance case discussed and evaluated by supervising physician Subjective Allergies: Coded Allergies: No Known Allergies (Unverified , 07/31/17) Subjective fevers last night, this am afebrile, leuk trending down to 18 no signs of resp distress on current settings off isolation Objective Last 24 Hour Vital Signs Date Time Temp Pulse Resp B/P (MAP) Pulse Ox O2 Delivery O2 Flow Rate FiO2 09/03/17 06:44 99 18 30 09/03/17 05:27 103 18 30 09/03/17 04:00 97 09/03/17 04:00 30 09/03/17 04:00 98.9 98 18 102/64 98 Mechanical Ventilator 30 98.9 09/03/17 03:03 106 19 30 09/03/17 01:02 102 18 30 09/03/17 00:00 99.0 97 18 111/61 99 Mechanical Ventilator 30 99.0 09/03/17 00:00 30 09/02/17 23:39 96 09/02/17 23:23 106 18 30 09/02/17 21:18 99.0 09/02/17 20:48 99.7 09/02/17 20:42 102 18 30 09/02/17 20:00 99.7 101 18 107/63 99 Mechanical Ventilator 30 99.7 09/02/17 20:00 30 09/02/17 19:55 103 09/02/17 19:26 104 19 30 09/02/17 16:50 106 18 30 09/02/17 16:00 98.2 105 22 112/67 100 Mechanical Ventilator 30 98.2 09/02/17 16:00 30 09/02/17 15:31 108 09/02/17 14:50 108 20 30 09/02/17 13:30 106 18 30 09/02/17 12:08 30 09/02/17 12:05 97.9 109 24 106/65 98 Mechanical Ventilator 30 97.9 09/02/17 12:00 107 09/02/17 11:19 109 19 30 09/02/17 09:30 108 18 30 09/02/17 08:35 98.8 109 24 109/69 98 Mechanical Ventilator 30 98.8 09/02/17 08:00 30 09/02/17 08:00 109 09/02/17 07:30 107 18 30 Intake and Output 09/02/17 09/03/17 19:00 07:00 Intake Total 875 ml 755 ml Output Total 500 ml 450 ml Balance 375 ml 305 ml Free Water 150 ml 150 ml IV Total 220 ml Tube Feeding 605 ml 385 ml Other 120 ml Output Urine Total 500 ml 450 ml # Bowel Movements 5 2 Objective General Appearance: no acute distress, bedridden, vent dependent male in NAD on Vent AC 550-18-30% PEEP 5 HEENT: status post trach with Shiley#[id number], secretions small yellow, thin Respiratory/Chest: no respiratory distress, BS decreased on the left Cardiovascular: normal rate, regular rhythm - SR on tele, PICC LUE intact Abdomen: normal bowel sounds, soft, non tender, G tube, Mishra Skin: L heel and sacral decub POA Neurologic/Psychiatric: abnormal gait, contracted, poorly responsive Microbiology Date/Time Source Procedure Growth Status 09/03/17 01:00 Stool Clostridium difficile Toxin Assay - Final Complete 09/01/17 16:00 Urine,Clean Catch Urine Culture - Preliminary Yeast Species Resulted Laboratory Tests 09/02/17 11:20: White Blood Count 30.5*H, Red Blood Count 3.11L, Hemoglobin 8.6L, Hematocrit 27.3L, Mean Corpuscular Volume 88, Mean Corpuscular Hemoglobin 27.7, Mean Corpuscular Hemoglobin Concent 31.5L, Red Cell Distribution Width 17.2H, Platelet Count 363, Mean Platelet Volume 6.8, Neutrophils (%) (Auto) , Lymphocytes (%) (Auto) , Monocytes (%) (Auto) , Eosinophils (%) (Auto) , Basophils (%) (Auto) , Differential Total Cells Counted 100, Neutrophils % ( Manual) 87H, Lymphocytes % (Manual) 5L, Monocytes % (Manual) 7, Eosinophils % ( Manual) 1, Basophils % (Manual) 0, Band Neutrophils 0, Platelet Estimate Adequate, Platelet Morphology Normal, Hypochromasia 1+, Anisocytosis 1+ 09/03/17 04:15: White Blood Count 18.3H, Red Blood Count 3.12L, Hemoglobin 9.3L, Hematocrit 27.1L, Mean Corpuscular Volume 87, Mean Corpuscular Hemoglobin 29.9, Mean Corpuscular Hemoglobin Concent 34.4, Red Cell Distribution Width 16.4H, Platelet Count 338, Mean Platelet Volume 6.7, Neutrophils (%) (Auto) , Lymphocytes (%) (Auto) , Monocytes (%) (Auto) , Eosinophils (%) (Auto) , Basophils (%) (Auto) , Neutrophils % (Manual) [Pending], Lymphocytes % (Manual) [Pending], Platelet Estimate [Pending], Platelet Morphology [Pending], Sodium Level 138, Potassium Level 4.5, Chloride Level 105, Carbon Dioxide Level 23, Anion Gap 10, Blood Urea Nitrogen 46H, Creatinine 1.1, Estimat Glomerular Filtration Rate > 60, Glucose Level 127H, Calcium Level 8.8 Current Medications Medications (Trade) Dose Ordered Sig/Serena Route PRN Reason Start Time Stop Time Status Last Admin Dose Admin Acetaminophen (Tylenol) 650 mg Q4H PRN GT Mild Pain/Temp > 100.5 08/11/17 20:45 09/10/17 20:44 09/02/17 20:48 Albuterol/ Ipratropium (Albuterol/ Ipratropium) 3 ml Q4H PRN HHN Shortness of Breath 08/30/17 09:05 09/04/17 09:04 Amiodarone HCl (Cordarone) 200 mg EVERY 12 HOURS GT 08/28/17 09:00 09/27/17 09:00 09/02/17 20:49 Chlorhexidine Gluconate (Ngoc-Hex 2%) 1 applic DAILY@2000 TOPIC 08/24/17 20:00 09/23/17 19:59 09/02/17 20:48 Dextrose (Dextrose 50%) STAT PRN IV Hypoglycemia 08/30/17 09:30 09/29/17 09:29 Heparin Sodium (Porcine) (Heparin 5000 units/ml) 5,000 units EVERY 12 HOURS SUBQ 08/28/17 09:00 09/27/17 09:00 09/02/17 20:51 Levetiracetam (Keppra) 250 mg BID GT 08/28/17 09:00 09/27/17 09:00 09/02/17 18:03 Meropenem 1 gm/ Dextrose 55 ml @ 110 mls/hr Q8HR IVPB 09/02/17 16:00 09/07/17 15:59 09/03/17 05:00 Ondansetron HCl (Zofran) 4 mg Q6H PRN IVP Nausea & Vomiting 08/28/17 08:30 09/27/17 08:29 Pantoprazole (Protonix) 40 mg DAILY IV 08/01/17 09:00 09/30/17 08:59 09/02/17 09:50 Phenytoin (Dilantin) 100 mg Q12HR GT 08/09/17 16:00 09/08/17 15:59 09/02/17 20:49 Polyethylene Glycol (Miralax) 17 gm DAILYPRN PRN ORAL Constipation 08/28/17 08:00 09/27/17 08:00 Vancomycin HCl (Vanco rx to dose) 1 ea DAILY PRN MISC Per rx protocol 09/02/17 13:30 10/02/17 13:29 Vancomycin HCl (Vancomycin) 125 mg FOUR TIMES A DAY ORAL 09/02/17 15:00 09/09/17 14:59 09/02/17 20:49 Vancomycin/Sodium Chloride 250 ml @ 166.667 mls/hr Q24H IVPB 09/03/17 17:00 09/08/17 16:59 Efe (Becky)Lizet NP Sep 03, 2017 07:26
[2017-09-03 08:00] VITALS: BP 114/78
[2017-09-03] MEDS: Amiodarone 200mg tab GT SCH ×2 (08:50→21:02)
[2017-09-03] MEDS: Phenytoin Susp 100mg/4ml GT SCH ×2 (08:50→21:02)
[2017-09-03] MEDS: Pantoprazole Inj IV SCH (08:50)
[2017-09-03] MEDS: levETIRAcetam 500mg/5ml Liquid GT SCH ×2 (08:50→17:31)
[2017-09-03] MEDS: Vancomycin oral 125mg/2.5ml ORAL SCH ×2 (08:52→13:14)
[2017-09-03] MEDS: Heparin 5000 units/ml inj SUBQ SCH ×2 (08:53→21:04)
[2017-09-03 12:00] VITALS: BP 124/74
[2017-09-03 16:00] VITALS: BP 122/78
[2017-09-03] MEDS: Vancomycin 750mg/NS 250ml IVPB SCH (17:31)
[2017-09-03] MEDS ORDERED: Vancomycin oral 125mg/2.5ml GT SCH (18:00)
--- NOTE | 2017-09-03 18:30 | Infectious Diseases Prog Note ---
Assessment/Plan Assessment/Plan ASSESSMENT: The patient is a 62-year-old male with: Fever, recurrent/ leukocytosisn improving - r/o Cdiff, UTI, bacteremia, PNA (JENNIE) -09/01 u/a wbc tntc; ucx Diann ( colonizer at this time as WBC improving ) -08/14 Cdiff neg -HIDA scan neg -CXR 08/17: Interval expansion of the previously atelectatic right lung. Considerable infiltrate versus edema throughout the right lung. Increasing left basilar atelectasis and possibly infiltrate -CXR 08/16: Complete opacification right hemithorax. Probably due to atelectasis related to endobronchial occlusion at the level of the right mainstem bronchus. There may also be a significant component of pleural effusion. Diarrhea- Cdiff: neg PICC line infection with CoNS, -Bcx 08/21 Neg -s/p removal PICC 08/18; s/p new pICC line 08/25 -Bcx 08/15 1/ + PICC line, peripheral NTD; Bcx 08/18 : 2/4 CoNS; cath tip cx CoNS -echo 07/31: limited views, no obvious vegetations or significant valve abnormalities Recent Blood Cx: CoNS probable line infection (PICC from out side facility was removed on and replaced on 08/03 ) Complete opacification R lung- , much improved now, possibly due to mucous plug ; recurrent -CXR 08/22: Interim near complete opacification of the right lung, probably due to near complete right lung atelectasis, given evidence of bronchial occlusion and mediastinal shift indicating volume loss. Component of pleural fluid also possible,however.New or increased moderate left pleural effusion ? ventilatory-associated pneumonia Scx: MDR PSA (S gentamicin, Colistin), repeat sp cx 08/13 normal pipo- Low suspicion overall for TB CCT: Extensive interstitial opacities throughout the right lung as well as groundglass opacities. Large differential, suspect on the basis of pulmonary edema, particularly given evidence of edema elsewhere, but possibility of infection, including possible tuberculosis, should also be considered. Right lower lobe consolidation, may reflect pneumonia (chest x-ray:Considerably worse pleural and parenchymal disease on the right. Slightly worse in pleural and parenchymal disease on the left, over 3 days ) Influenza: Neg -AFB sp cx smear neg x3, cx p, MTB PCR neg -Blatomyces ab neg, CrAg neg, Histoplasma ID neg, CF not done due to anticomplement activity; Cocci ab pending -HIV ag/ab neg -TB spot + (suspect latent rather than active, final AFB cx pending), MTB PCR neg Multiple decubitus of lower extremity. Left heel unstageable decubitus (no purulent discharge.) probable osteo per bone scan -no wound cx obtained NM : flow, blood pool, static activity involving the calcaneal tuberosity on the left. 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 Evidence of anasarca, with generalized edema of the subcutaneous fat,retroperitoneal and mesenteric fat, trace ascites, small left pleural effusion. Possible wall thickening of proximal and mid transverse and ascending colon. Could represent colitis although possibly artifactual due to under distention. Very questionable wall thickening of the duodenum and proximal jejunum, if real could indicate duodenitis/enteritis and/or peptic ulcer disease. Gas bubbles in the anterior aspect of the right rectus abdominis muscle belly. Cholelithiasis. Diffusely somewhat prominent pancreas, probably baseline for this patient, but the possibility of acute pancreatitis should be considered. Scattered punctate microcalcifications may represent sequelae of chronic calcifying pancreatitis, versus arterial calcifications. Ectasia of the pancreatic duct could also indicate chronic calcified pancreatitis no definite pancreatic head mass, although evaluation for such is limited in the absence of IVcontrast US Borderline gallbladder wall thickening, more likely artifact due to underdistention than real. Diarrhea CT: ? wall thickening of proximal and mid transverse and ascending colon.duodenum and proximal jejunum, and probable acute pancreatitis should be considered. ? Clostridium difficile: Neg Pl effusion: exudate , Pr : 4.4 , cell count : P ro empyema 08/12 SP ultrasound-guided thoracentesis, of 400 cc BETSY Diabetes. Anemia. GERD. Hypertension. History of TBI. Seizure disorder PLAN: - Meropenem and IV Vancomycin d# 2 given fever and Increased WBC pending repeat cx and CXR - DC PO Vancomycin 125mg qid Cdiff: neg 09/02 SP V Daptomycin and Ceftriaxone # and Flagyl #14 08/19 SP INH colistin for MDR PsA PNA 08/18 SP IV Vancomycin #4 08/16 SP Micafungin #5 08/15 SP Meropenem #10 3 SP IV Colistin #9 3/4 SP vancomycin d# 9 and Zosyn and Gent d# 4 3 SP cefepime day # 5 -f/u CXR, 2 sets of Bcx, ucx PICC line care Monitor chest x-ray f/u cocci ab, fungitell, AFB final cultures Monitor CBC Subjective Allergies: Coded Allergies: No Known Allergies (Unverified , 07/31/17) Subjective no acute event Objective Vital Signs Last 24 Hour Vital Signs Date Time Temp Pulse Resp B/P (MAP) Pulse Ox O2 Delivery O2 Flow Rate FiO2 09/03/17 17:09 101 18 30 09/03/17 16:00 98 09/03/17 16:00 97.5 100 18 122/78 97 Mechanical Ventilator 30 97.5 09/03/17 16:00 30 09/03/17 14:45 99 18 30 09/03/17 13:06 96 18 30 09/03/17 12:00 30 09/03/17 12:00 99 09/03/17 12:00 98.4 99 20 124/74 99 Mechanical Ventilator 30 98.4 09/03/17 11:02 98 18 30 09/03/17 09:20 99 18 30 09/03/17 08:00 99 09/03/17 08:00 98.1 101 18 114/78 100 Mechanical Ventilator 30 98.1 09/03/17 08:00 30 09/03/17 06:44 99 18 30 09/03/17 05:27 103 18 30 09/03/17 04:00 97 09/03/17 04:00 30 09/03/17 04:00 98.9 98 18 102/64 98 Mechanical Ventilator 30 98.9 09/03/17 03:03 106 19 30 09/03/17 01:02 102 18 30 09/03/17 00:00 99.0 97 18 111/61 99 Mechanical Ventilator 30 99.0 09/03/17 00:00 30 09/02/17 23:39 96 09/02/17 23:23 106 18 30 09/02/17 21:18 99.0 09/02/17 20:48 99.7 09/02/17 20:42 102 18 30 09/02/17 20:00 99.7 101 18 107/63 99 Mechanical Ventilator 30 99.7 09/02/17 20:00 30 09/02/17 19:55 103 09/02/17 19:26 104 19 30 Height (Feet): 6 Height (Inches): 0.00 Weight (Pounds): 131 HEENT: atraumatic Respiratory/Chest: no respiratory distress Cardiovascular: regularly irregular Abdomen: non distended Microbiology Date/Time Source Procedure Growth Status 09/02/17 04:55 Blood Blood Culture - Preliminary NO GROWTH AFTER 24 HOURS Resulted 09/02/17 04:45 Blood Blood Culture - Preliminary NO GROWTH AFTER 24 HOURS Resulted 09/03/17 01:00 Stool Clostridium difficile Toxin Assay - Final Complete 09/01/17 16:00 Urine,Clean Catch Urine Culture - Preliminary Yeast Species Resulted Laboratory Tests Test 09/03/17 04:15 White Blood Count 18.3 K/UL (4.8-10.8) H Red Blood Count 3.12 M/UL (4.70-6.10) L Hemoglobin 9.3 G/DL (14.2-18.0) L Hematocrit 27.1 % (42.0-52.0) L Mean Corpuscular Volume 87 FL (80-99) Mean Corpuscular Hemoglobin 29.9 PG (27.0-31.0) Mean Corpuscular Hemoglobin Concent 34.4 G/DL (32.0-36.0) Red Cell Distribution Width 16.4 % (11.6-14.8) H Platelet Count 338 K/UL (150-450) Mean Platelet Volume 6.7 FL (6.5-10.1) Neutrophils (%) (Auto) % (45.0-75.0) Lymphocytes (%) (Auto) % (20.0-45.0) Monocytes (%) (Auto) % (1.0-10.0) Eosinophils (%) (Auto) % (0.0-3.0) Basophils (%) (Auto) % (0.0-2.0) Differential Total Cells Counted 100 Neutrophils % (Manual) 85 % (45-75) H Lymphocytes % (Manual) 7 % (20-45) L Monocytes % (Manual) 7 % (1-10) Eosinophils % (Manual) 1 % (0-3) Basophils % (Manual) 0 % (0-2) Band Neutrophils 0 % (0-8) Platelet Estimate Adequate Platelet Morphology Normal Hypochromasia 2+ Anisocytosis 1+ Spherocytes 2+ Sodium Level 138 MMOL/L (136-145) Potassium Level 4.5 MMOL/L (3.5-5.1) Chloride Level 105 MMOL/L (98-107) Carbon Dioxide Level 23 MMOL/L (21-32) Anion Gap 10 mmol/L (5-15) Blood Urea Nitrogen 46 mg/dL (7-18) H Creatinine 1.1 MG/DL (0.55-1.30) Estimat Glomerular Filtration Rate > 60 mL/min (>60) Glucose Level 127 MG/DL (74-106) H Calcium Level 8.8 MG/DL (8.5-10.1) Current Medications Medications (Trade) Dose Ordered Sig/Serena Route PRN Reason Start Time Stop Time Status Last Admin Dose Admin Acetaminophen (Tylenol) 650 mg Q4H PRN GT Mild Pain/Temp > 100.5 08/11/17 20:45 09/10/17 20:44 09/02/17 20:48 Albuterol/ Ipratropium (Albuterol/ Ipratropium) 3 ml Q4H PRN HHN Shortness of Breath 08/30/17 09:05 09/04/17 09:04 Amiodarone HCl (Cordarone) 200 mg EVERY 12 HOURS GT 08/28/17 09:00 09/27/17 09:00 09/03/17 08:50 Chlorhexidine Gluconate (Ngoc-Hex 2%) 1 applic DAILY@1999 TOPIC 08/24/17 20:00 09/23/17 19:59 09/02/17 20:48 Dextrose (Dextrose 50%) STAT PRN IV Hypoglycemia 08/30/17 09:30 09/29/17 09:29 Heparin Sodium (Porcine) (Heparin 5000 units/ml) 5,000 units EVERY 12 HOURS SUBQ 08/28/17 09:00 09/27/17 09:00 09/03/17 08:53 Levetiracetam (Keppra) 250 mg BID GT 08/28/17 09:00 09/27/17 09:00 09/03/17 17:31 Meropenem 1 gm/ Dextrose 55 ml @ 110 mls/hr Q8HR IVPB 09/02/17 16:00 09/07/17 15:59 09/03/17 13:14 Ondansetron HCl (Zofran) 4 mg Q6H PRN IVP Nausea & Vomiting 08/28/17 08:30 09/27/17 08:29 Pantoprazole (Protonix) 40 mg DAILY IV 08/01/17 09:00 09/30/17 08:59 09/03/17 08:50 Phenytoin (Dilantin) 100 mg Q12HR GT 08/09/17 16:00 09/08/17 15:59 09/03/17 08:50 Polyethylene Glycol (Miralax) 17 gm DAILYPRN PRN ORAL Constipation 08/28/17 08:00 09/27/17 08:00 Vancomycin HCl (Vanco rx to dose) 1 ea DAILY PRN MISC Per rx protocol 09/02/17 13:30 10/02/17 13:29 Vancomycin HCl (Vancomycin) 125 mg FOUR TIMES A DAY GT 09/03/17 18:00 09/09/17 14:59 09/03/17 17:31 Vancomycin/Sodium Chloride 250 ml @ 166.667 mls/hr Q24H IVPB 09/03/17 17:00 09/08/17 16:59 09/03/17 17:31 Norman Chen MD Sep 03, 2017 18:30
[2017-09-03 20:00] VITALS: BP 121/71
[2017-09-03] MEDS: Dyna-Hex 2% Top Sol 2oz TOPIC SCH (20:12)
[2017-09-04] VITALS: BP 121/76
--- NOTE | 2017-09-04 01:12 | General Progress Note ---
Assessment/Plan Assessment/Plan #. Leukocytosis, likely secondary to infection. --> On antibiotics. --> Wbc count elevated but seems to have improved today. --> Monitor closely and trend cbc #. Anemia of chronic disease. Monitor closely. --> ESR 134. Hemoglobin has been above goal. --> Anemia workup reviewed. --> Iron 37, TIBC 99, Vit B12 535, Folate 11.4 --> Transfuse if hgb <7 --> Blood transfusion not required unless symptomatic or hgb below goal. #. Coagulopathy. Likely due to decreased vitamin K intake. Imaging reviewed. --> Prominent pancreas, calcification is noted. --> On anticoagulation -- heparin sq #. Dysphagia, status post percutaneous endoscopic gastrostomy tube. #. Cholelithiasis is noted on ultrasound. Borderline diabetic --> HIDA scan is negative. #. Transaminitis has since improved, potentially secondary to medications v other causes Subjective Date patient seen: Sep 03, 2017 Constitutional: Denies: no symptoms, chills, diaphoresis, fever, malaise, weakness, other HEENT: Denies: no symptoms, eye pain, blurred vision, tearing, double vision, ear pain, ear discharge, nose pain, nose congestion, throat pain, throat swelling, mouth pain, mouth swelling, other Cardiovascular: Denies: no symptoms, chest pain, edema, irregular heart rate, lightheadedness, palpitations, syncope, other Respiratory: Denies: no symptoms, cough, orthopnea, shortness of breath, SOB with excertion, SOB at rest, sputum, stridor, wheezing, other Gastrointestinal/Abdominal: Denies: no symptoms, abdomen distended, abdominal pain, black stools, tarry stools, blood in stool, constipated, diarrhea, difficulty swallowing, nausea, poor appetite, poor fluid intake, rectal bleeding , vomiting, other Genitourinary: Denies: no symptoms, burning, discharge, frequency, flank pain, hematuria, incontinence, pain, urgency, other Neurologic/Psychiatric: Denies: no symptoms, anxiety, depressed, emotional problems, headache, numbness, paresthesia, pre-existing deficit, seizure, tingling, tremors, weakness, other Hematologic/Lymphatic: Reports: anemia Allergies: Coded Allergies: No Known Allergies (Unverified , 07/31/17) Subjective On antibiotic treatment. Wbc downtrended from yesterday. Objective Last 24 Hour Vital Signs Date Time Temp Pulse Resp B/P (MAP) Pulse Ox O2 Delivery O2 Flow Rate FiO2 09/04/17 00:00 98.4 106 18 121/76 99 Mechanical Ventilator 30 98.4 09/03/17 23:29 101 20 30 09/03/17 21:35 101 20 30 09/03/17 20:00 30 09/03/17 20:00 98.2 101 20 121/71 99 Mechanical Ventilator 30 98.2 09/03/17 20:00 101 09/03/17 18:55 99 18 30 09/03/17 17:09 101 18 30 09/03/17 16:00 98 09/03/17 16:00 97.5 100 18 122/78 97 Mechanical Ventilator 30 97.5 09/03/17 16:00 30 09/03/17 14:45 99 18 30 09/03/17 13:06 96 18 30 09/03/17 12:00 30 09/03/17 12:00 99 09/03/17 12:00 98.4 99 20 124/74 99 Mechanical Ventilator 30 98.4 09/03/17 11:02 98 18 30 09/03/17 09:20 99 18 30 09/03/17 08:00 99 09/03/17 08:00 98.1 101 18 114/78 100 Mechanical Ventilator 30 98.1 09/03/17 08:00 30 09/03/17 06:44 99 18 30 09/03/17 05:27 103 18 30 09/03/17 04:00 97 09/03/17 04:00 30 09/03/17 04:00 98.9 98 18 102/64 98 Mechanical Ventilator 30 98.9 09/03/17 03:03 106 19 30 Intake and Output 09/03/17 09/04/17 19:00 07:00 Intake Total 900.000 ml 275 ml Output Total 600 ml Balance 300.000 ml 275 ml Free Water 0 ml IV Total 305.000 ml 55 ml Tube Feeding 550 ml 220 ml Other 45 ml Output Urine Total 600 ml # Bowel Movements 2 Laboratory Tests 09/03/17 04:15: White Blood Count 18.3H, Red Blood Count 3.12L, Hemoglobin 9.3L, Hematocrit 27.1L, Mean Corpuscular Volume 87, Mean Corpuscular Hemoglobin 29.9, Mean Corpuscular Hemoglobin Concent 34.4, Red Cell Distribution Width 16.4H, Platelet Count 338, Mean Platelet Volume 6.7, Neutrophils (%) (Auto) , Lymphocytes (%) (Auto) , Monocytes (%) (Auto) , Eosinophils (%) (Auto) , Basophils (%) (Auto) , Differential Total Cells Counted 100, Neutrophils % ( Manual) 85H, Lymphocytes % (Manual) 7L, Monocytes % (Manual) 7, Eosinophils % ( Manual) 1, Basophils % (Manual) 0, Band Neutrophils 0, Platelet Estimate Adequate, Platelet Morphology Normal, Hypochromasia 2+, Anisocytosis 1+, Spherocytes 2+, Sodium Level 138, Potassium Level 4.5, Chloride Level 105, Carbon Dioxide Level 23, Anion Gap 10, Blood Urea Nitrogen 46H, Creatinine 1.1, Estimat Glomerular Filtration Rate > 60, Glucose Level 127H, Calcium Level 8.8 Height (Feet): 6 Height (Inches): 0.00 Weight (Pounds): 131 Respiratory/Chest: decreased breath sounds Abdomen: soft Edema: trace edema López Vásquez MD Sep 04, 2017 01:12
[2017-09-04 04:00] VITALS: BP 111/68
[2017-09-04 04:22] LABS: BASOPHILS % (AUTO) 0.7 % (0.0-2.0); EOSINOPHILS % (AUTO) 1.9 % (0.0-3.0); HEMATOCRIT 28.1 % (42.0-52.0); HEMOGLOBIN 9.3 G/DL (14.2-18.0); MEAN CORPUSCULAR VOLUME 87 FL (80-99); MONOCYTES % (AUTO) 7.2 % (1.0-10.0); NEUTROPHILS % (AUTO) 79.3 % (45.0-75.0); PLATELET COUNT 386 K/UL (150-450); RED BLOOD COUNT 3.23 M/UL (4.70-6.10); RED CELL DISTRIBUTION WIDTH 16.2 % (11.6-14.8); WHITE BLOOD COUNT 12.8 K/UL (4.8-10.8)
[2017-09-04 04:36] LABS: INR 1.3 (0.9-1.1)
[2017-09-04 04:38] LABS: ANION GAP 10 mmol/L (5-15); BLOOD UREA NITROGEN 47 mg/dL (7-18); CARBON DIOXIDE 23 MMOL/L (21-32); CHLORIDE 107 MMOL/L (98-107); CREATININE 1.2 MG/DL (0.55-1.30); POTASSIUM 4.6 MMOL/L (3.5-5.1); SODIUM 140 MMOL/L (136-145)
[2017-09-04] MEDS: Meropenem 1 GM in D5W 55 ML IVPB SCH ×3 (06:12→21:16)
[2017-09-04 08:00] VITALS: BP 110/68
[2017-09-04] MEDS: levETIRAcetam 500mg/5ml Liquid GT SCH ×2 (08:42→17:50)
[2017-09-04] MEDS: Phenytoin Susp 100mg/4ml GT SCH ×2 (08:42→21:15)
[2017-09-04] MEDS: Amiodarone 200mg tab GT SCH ×2 (08:42→21:16)
[2017-09-04] MEDS: Pantoprazole Inj IV SCH (08:42)
[2017-09-04] MEDS: Heparin 5000 units/ml inj SUBQ SCH ×2 (08:44→21:17)
[2017-09-04] MEDS ORDERED: Tubing IV Secondary IV ONE ×2 (10:13)
[2017-09-04] MEDS ORDERED: NS 275ml ONE ×2 (10:13→10:27)
[2017-09-04 12:00] VITALS: BP 109/70
--- NOTE | 2017-09-04 12:05 | Pulmonolgy Critical Care Note ---
Critical Care - Asmt/Plan Problems: (1) Sepsis (2) Chronic respiratory failure (3) UTI (urinary tract infection) (4) Feeding by G-tube (5) Pressure ulcer Assessment & Plan: wbc decreasing, awaiting new cultures. Respiratory: monitor respiratory rate, adjust FIO2, CXR Cardiac: continue to monitor HR/BP Renal: F/U I&O Infectious Disease: check cultures, continue antibiotics - Meropenem and IV Vancomycin d# 3 Neurologic: PRN Ativan Affect: PRN ativan Prophylaxis: Heparin Notes Reviewed: renal Discussed with: consultants Critical Care - Objective Last 24 Hour Vital Signs Date Time Temp Pulse Resp B/P (MAP) Pulse Ox O2 Delivery O2 Flow Rate FiO2 09/04/17 10:45 107 18 30 09/04/17 08:41 108 18 30 09/04/17 08:00 98.0 108 18 110/68 99 Mechanical Ventilator 30 98.0 09/04/17 08:00 103 09/04/17 08:00 30 09/04/17 06:42 99 18 30 09/04/17 05:36 108 18 30 09/04/17 04:00 30 09/04/17 04:00 98.9 104 18 111/68 100 Mechanical Ventilator 30 98.9 09/04/17 03:37 104 09/04/17 03:23 104 18 30 09/04/17 01:12 104 18 30 09/04/17 00:00 98.4 106 18 121/76 99 Mechanical Ventilator 30 98.4 09/04/17 00:00 30 09/03/17 23:47 107 09/03/17 23:29 101 20 30 09/03/17 21:35 101 20 30 09/03/17 20:00 30 09/03/17 20:00 98.2 101 20 121/71 99 Mechanical Ventilator 30 98.2 09/03/17 19:43 101 09/03/17 18:55 99 18 30 09/03/17 17:09 101 18 30 09/03/17 16:00 98 09/03/17 16:00 97.5 100 18 122/78 97 Mechanical Ventilator 30 97.5 09/03/17 16:00 30 09/03/17 14:45 99 18 30 09/03/17 13:06 96 18 30 Status: obtunded Condition: critical HEENT: atraumatic Lungs: clear Heart: HR/BP stable Abdomen: soft, non-tender Extremities: no C/C/E, edema Decubiti: location Micro: Microbiology Date/Time Source Procedure Growth Status 09/02/17 04:55 Blood Blood Culture - Preliminary NO GROWTH AFTER 48 HOURS Resulted 09/02/17 04:45 Blood Blood Culture - Preliminary NO GROWTH AFTER 48 HOURS Resulted 09/03/17 01:00 Stool Clostridium difficile Toxin Assay - Final Complete 09/01/17 16:00 Urine,Clean Catch Urine Culture - Final Diann Albicans Complete Accucheck: 131 Critical Care - Subjective ROS Limited/Unobtainable: Yes Condition: critical EKG Rhythm: Sinus Rhythm FI02: 30 Vent Support Breath Rate: 18 Vent Support Mode: AC Vent Tidal Volume: 550 Sputum Amount: Small PEEP: 5.0 PIP: 29 Tube Feeding Amount: 55 I&O: Intake and Output 09/03/17 09/04/17 19:00 07:00 Intake Total 900.000 ml 770 ml Output Total 600 ml 400 ml Balance 300.000 ml 370 ml Free Water 0 ml IV Total 305.000 ml 110 ml Tube Feeding 550 ml 660 ml Other 45 ml Output Urine Total 600 ml 400 ml # Bowel Movements 2 1 CXR: no change, Left effusion /infiltrate present Ernestina James MD Sep 04, 2017 12:05
[2017-09-04 16:00] VITALS: BP 113/74
[2017-09-04] MEDS: Vancomycin 750mg/NS 250ml IVPB SCH (17:50)
[2017-09-04 20:00] VITALS: BP 120/80
[2017-09-04] MEDS: Dyna-Hex 2% Top Sol 2oz TOPIC SCH (21:16)
--- NOTE | 2017-09-04 23:51 | General Progress Note ---
Assessment/Plan Assessment/Plan #. Leukocytosis, likely secondary to infection. --> On broad-spectrum antibiotics. --> Wbc count downtrending and improving. --> Continue to monitor closely and trend cbc #. Anemia of chronic disease. Monitor closely. --> ESR 134. Hemoglobin has been above goal. --> Anemia workup reviewed. --> Iron 37, TIBC 99, Vit B12 535, Folate 11.4 --> Transfuse if hgb <7 --> Blood transfusion not required unless symptomatic or hgb below goal. #. Coagulopathy. Likely due to decreased vitamin K intake. Imaging reviewed. --> Prominent pancreas, calcification is noted. --> On anticoagulation -- heparin sq #. Dysphagia, status post percutaneous endoscopic gastrostomy tube. #. Cholelithiasis is noted on ultrasound. Borderline diabetic --> HIDA scan is negative. #. Transaminitis has since improved, potentially secondary to medications v other causes Subjective Date patient seen: Sep 04, 2017 Constitutional: Denies: no symptoms, chills, diaphoresis, fever, malaise, weakness, other HEENT: Denies: no symptoms, eye pain, blurred vision, tearing, double vision, ear pain, ear discharge, nose pain, nose congestion, throat pain, throat swelling, mouth pain, mouth swelling, other Cardiovascular: Denies: no symptoms, chest pain, edema, irregular heart rate, lightheadedness, palpitations, syncope, other Respiratory: Denies: no symptoms, cough, orthopnea, shortness of breath, SOB with excertion, SOB at rest, sputum, stridor, wheezing, other Gastrointestinal/Abdominal: Denies: no symptoms, abdomen distended, abdominal pain, black stools, tarry stools, blood in stool, constipated, diarrhea, difficulty swallowing, nausea, poor appetite, poor fluid intake, rectal bleeding , vomiting, other Genitourinary: Denies: no symptoms, burning, discharge, frequency, flank pain, hematuria, incontinence, pain, urgency, other Neurologic/Psychiatric: Denies: no symptoms, anxiety, depressed, emotional problems, headache, numbness, paresthesia, pre-existing deficit, seizure, tingling, tremors, weakness, other Hematologic/Lymphatic: Reports: anemia Allergies: Coded Allergies: No Known Allergies (Unverified , 07/31/17) Subjective Leukocytosis improved on antibiotics. Tachycardia Objective Last 24 Hour Vital Signs Date Time Temp Pulse Resp B/P (MAP) Pulse Ox O2 Delivery O2 Flow Rate FiO2 09/04/17 22:43 106 20 30 09/04/17 21:04 104 18 30 09/04/17 20:00 98.6 103 18 120/80 100 Mechanical Ventilator 30 98.6 09/04/17 20:00 30 09/04/17 19:23 103 18 30 09/04/17 19:05 104 09/04/17 16:39 105 18 30 09/04/17 16:00 110 09/04/17 16:00 30 09/04/17 16:00 98.1 107 18 113/74 100 Mechanical Ventilator 30 98.1 09/04/17 14:38 107 18 30 09/04/17 12:46 105 18 30 09/04/17 12:00 108 09/04/17 12:00 30 09/04/17 12:00 98.3 108 18 109/70 100 Mechanical Ventilator 30 98.3 09/04/17 10:45 107 18 30 09/04/17 08:41 108 18 30 09/04/17 08:00 98.0 108 18 110/68 99 Mechanical Ventilator 30 98.0 09/04/17 08:00 103 09/04/17 08:00 30 09/04/17 06:42 99 18 30 09/04/17 05:36 108 18 30 09/04/17 04:00 30 09/04/17 04:00 98.9 104 18 111/68 100 Mechanical Ventilator 30 98.9 09/04/17 03:37 104 09/04/17 03:23 104 18 30 09/04/17 01:12 104 18 30 09/04/17 00:00 98.4 106 18 121/76 99 Mechanical Ventilator 30 98.4 09/04/17 00:00 30 09/03/17 23:47 107 09/03/17 23:29 101 20 30 Intake and Output 09/03/17 09/04/17 19:00 07:00 Intake Total 900.000 ml 770 ml Output Total 600 ml 400 ml Balance 300.000 ml 370 ml Free Water 0 ml IV Total 305.000 ml 110 ml Tube Feeding 550 ml 660 ml Other 45 ml Output Urine Total 600 ml 400 ml # Bowel Movements 2 1 Laboratory Tests 09/04/17 03:45: White Blood Count 12.8H, Red Blood Count 3.23L, Hemoglobin 9.3L, Hematocrit 28.1L, Mean Corpuscular Volume 87, Mean Corpuscular Hemoglobin 28.8, Mean Corpuscular Hemoglobin Concent 33.1, Red Cell Distribution Width 16.2H, Platelet Count 386, Mean Platelet Volume 7.4, Neutrophils (%) (Auto) 79.3H, Lymphocytes (%) (Auto) 11.0L, Monocytes (%) (Auto) 7.2, Eosinophils (%) (Auto) 1.9, Basophils (%) (Auto) 0.7, Prothrombin Time 13.5H, Prothromb Time International Ratio 1.3H, Sodium Level 140, Potassium Level 4.6, Chloride Level 107, Carbon Dioxide Level 23, Anion Gap 10, Blood Urea Nitrogen 47H, Creatinine 1.2, Estimat Glomerular Filtration Rate > 60, Glucose Level 109H, Calcium Level 9.0 09/04/17 16:15: Vancomycin Level Trough 16.6H 09/04/17 19:00: Activated Partial Thromboplast Time 32 Height (Feet): 6 Height (Inches): 0.00 Weight (Pounds): 132 Respiratory/Chest: decreased breath sounds Abdomen: soft López Vásquez MD Sep 04, 2017 23:51
[2017-09-05] VITALS: BP 101/81
[2017-09-05 04:00] VITALS: BP 125/85
[2017-09-05 04:53] LABS: BASOPHILS % (AUTO) 0.8 % (0.0-2.0); EOSINOPHILS % (AUTO) 3.2 % (0.0-3.0); HEMATOCRIT 24.5 % (42.0-52.0); HEMOGLOBIN 8.1 G/DL (14.2-18.0); LYMPHOCYTES % (AUTO) 12.5 % (20.0-45.0); MEAN CORPUSCULAR VOLUME 88 FL (80-99); MONOCYTES % (AUTO) 10.3 % (1.0-10.0); NEUTROPHILS % (AUTO) 73.1 % (45.0-75.0); PLATELET COUNT 359 K/UL (150-450); RED CELL DISTRIBUTION WIDTH 16.1 % (11.6-14.8); WHITE BLOOD COUNT 12.1 K/UL (4.8-10.8)
[2017-09-05 05:34] LABS: ALANINE AMINOTRANSFERASE 22 U/L (12-78); ALBUMIN 1.9 G/DL (3.4-5.0); ALBUMIN/GLOBULIN RATIO 0.3 (1.0-2.7); ALKALINE PHOSPHATASE 226 U/L (46-116); ASPARTATE AMINO TRANSFERASE 50 U/L (15-37); BILIRUBIN,TOTAL 0.3 MG/DL (0.2-1.0); BLOOD UREA NITROGEN 46 mg/dL (7-18); CALCIUM 8.9 MG/DL (8.5-10.1); CARBON DIOXIDE 23 MMOL/L (21-32); CREATININE 1.2 MG/DL (0.55-1.30)
[2017-09-05] MEDS: Meropenem 1 GM in D5W 55 ML IVPB SCH ×3 (05:44→23:09)
[2017-09-05 07:14] LABS: CHLORIDE 110 MMOL/L (98-107); POTASSIUM 4.1 MMOL/L (3.5-5.1); SODIUM 142 MMOL/L (136-145)
[2017-09-05 07:18] LABS: ANION GAP 9 mmol/L (5-15)
[2017-09-05 08:00] VITALS: BP 127/83
[2017-09-05] MEDS: Heparin 5000 units/ml inj SUBQ SCH ×2 (09:00→20:30)
[2017-09-05] MEDS: Pantoprazole Inj IV SCH (09:08)
[2017-09-05] MEDS: Amiodarone 200mg tab GT SCH ×2 (09:08→20:27)
[2017-09-05] MEDS: Phenytoin Susp 100mg/4ml GT SCH ×2 (09:09→20:28)
[2017-09-05] MEDS: levETIRAcetam 500mg/5ml Liquid GT SCH ×2 (09:09→17:41)
[2017-09-05] MEDS ORDERED: NS 275ml ONE (09:12)
[2017-09-05] MEDS ORDERED: Tubing IV Secondary IV ONE (09:12)
--- NOTE | 2017-09-05 10:53 | Pulmonolgy Critical Care Note ---
Critical Care - Asmt/Plan Problems: (1) Sepsis (2) Chronic respiratory failure (3) UTI (urinary tract infection) (4) Feeding by G-tube (5) Pressure ulcer Assessment & Plan: wbc decreasing, awaiting new cultures. 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 Critical Care - Objective Last 24 Hour Vital Signs Date Time Temp Pulse Resp B/P (MAP) Pulse Ox O2 Delivery O2 Flow Rate FiO2 09/05/17 10:30 102 18 30 09/05/17 09:01 102 18 30 09/05/17 08:00 30 09/05/17 08:00 98.2 99 18 127/83 99 Mechanical Ventilator 30 98.2 09/05/17 07:29 100 20 30 09/05/17 05:06 102 19 30 09/05/17 04:00 30 09/05/17 04:00 97 09/05/17 04:00 98.0 99 19 125/85 100 Mechanical Ventilator 30 98.0 09/05/17 03:03 101 19 30 09/05/17 01:07 101 18 30 09/05/17 00:00 98.4 104 18 101/81 100 Mechanical Ventilator 30 98.4 09/05/17 00:00 30 09/04/17 23:28 106 09/04/17 22:43 106 20 30 09/04/17 21:04 104 18 30 09/04/17 20:00 98.6 103 18 120/80 100 Mechanical Ventilator 30 98.6 09/04/17 20:00 30 09/04/17 19:23 103 18 30 09/04/17 19:05 104 09/04/17 16:39 105 18 30 09/04/17 16:00 110 09/04/17 16:00 30 09/04/17 16:00 98.1 107 18 113/74 100 Mechanical Ventilator 30 98.1 09/04/17 14:38 107 18 30 09/04/17 12:46 105 18 30 09/04/17 12:00 108 09/04/17 12:00 30 09/04/17 12:00 98.3 108 18 109/70 100 Mechanical Ventilator 30 98.3 Status: awake Condition: critical HEENT: atraumatic Lungs: chest wall tender, rales, rhonchi Heart: HR/BP stable, HR/BP unstable Abdomen: soft, feeding tube Extremities: edema Decubiti: location Micro: Microbiology Date/Time Source Procedure Growth Status 09/03/17 01:00 Stool Clostridium difficile Toxin Assay - Final Complete Accucheck: 131 Critical Care - Subjective ROS Limited/Unobtainable: Yes Condition: critical EKG Rhythm: Sinus Rhythm FI02: 30 Vent Support Breath Rate: 18 Vent Support Mode: AC Vent Tidal Volume: 550 Sputum Amount: Small PEEP: 5.0 PIP: 28 Secretions: small Tube Feeding Amount: 55 I&O: Intake and Output 09/04/17 09/05/17 19:00 07:00 Intake Total 811.667 ml 573.333 ml Output Total 675 ml 1175 ml Balance 136.667 ml -601.667 ml Free Water 50 ml IV Total 221.667 ml 138.333 ml Tube Feeding 440 ml 385 ml Other 100 ml 50 ml Output Urine Total 575 ml 1075 ml Stool Total 100 ml 100 ml # Bowel Movements 2 100 CXR: US of chest didn't show any pleural fluid. CXR showing LLL infiltrate. Labs: Laboratory Tests Test 09/04/17 16:15 09/04/17 19:00 09/05/17 04:30 Vancomycin Level Trough 16.6 ug/mL (5.0-12.0) H Activated Partial Thromboplast Time 32 SEC (23-33) White Blood Count 12.1 K/UL (4.8-10.8) H Red Blood Count 2.80 M/UL (4.70-6.10) L Hemoglobin 8.1 G/DL (14.2-18.0) L Hematocrit 24.5 % (42.0-52.0) L Mean Corpuscular Volume 88 FL (80-99) Mean Corpuscular Hemoglobin 28.9 PG (27.0-31.0) Mean Corpuscular Hemoglobin Concent 33.1 G/DL (32.0-36.0) Red Cell Distribution Width 16.1 % (11.6-14.8) H Platelet Count 359 K/UL (150-450) Mean Platelet Volume 6.7 FL (6.5-10.1) Neutrophils (%) (Auto) 73.1 % (45.0-75.0) Lymphocytes (%) (Auto) 12.5 % (20.0-45.0) L Monocytes (%) (Auto) 10.3 % (1.0-10.0) H Eosinophils (%) (Auto) 3.2 % (0.0-3.0) H Basophils (%) (Auto) 0.8 % (0.0-2.0) Sodium Level 142 MMOL/L (136-145) Potassium Level 4.1 MMOL/L (3.5-5.1) Chloride Level 110 MMOL/L (98-107) H Carbon Dioxide Level 23 MMOL/L (21-32) Anion Gap 9 mmol/L (5-15) Blood Urea Nitrogen 46 mg/dL (7-18) H Creatinine 1.2 MG/DL (0.55-1.30) Estimat Glomerular Filtration Rate > 60 mL/min (>60) Glucose Level 121 MG/DL (74-106) H Calcium Level 8.9 MG/DL (8.5-10.1) Total Bilirubin 0.3 MG/DL (0.2-1.0) Aspartate Amino Transf (AST/SGOT) 50 U/L (15-37) H Alanine Aminotransferase (ALT/SGPT) 22 U/L (12-78) Alkaline Phosphatase 226 U/L (46-116) H Pro-B-Type Natriuretic Peptide 439 pg/mL (0-125) H Total Protein 8.4 G/DL (6.4-8.2) H Albumin 1.9 G/DL (3.4-5.0) L Globulin 6.5 g/dL Albumin/Globulin Ratio 0.3 (1.0-2.7) L Ernestina James MD Sep 05, 2017 10:53
--- NOTE | 2017-09-05 12:05 | Diagnostic Imaging Report ---
Indication: Shortness of breath Technique: One view of the chest Comparison: 09/02/2017 Findings: There is suggestion of improved aeration at the left lung base, with decreased pleural fluid and decreased parenchymal consolidation/atelectasis. Total atelectasis at the right lung base is noted. Left arm PICC, tracheostomy remain. Impression: Decreased left basilar pleural and parenchymal disease, over 3 days
--- NOTE | 2017-09-05 12:07 | Infectious Diseases Prog Note ---
Assessment/Plan Assessment/Plan ASSESSMENT: The patient is a 62-year-old male with: Fever, SP leukocytosis improving - -09/01 u/a wbc tntc; ucx Diann ( colonizer at this time as WBC improving ) -08/14 Cdiff neg -HIDA scan neg - CXR 09/02light interval increase in interstitial opacification/edema compared to the prior exam. -CXR 08/17: Interval expansion of the previously atelectatic right lung. Considerable infiltrate versus edema throughout the right lung. Increasing left basilar atelectasis and possibly infiltrate -CXR 08/16: Complete opacification right hemithorax. Probably due to atelectasis related to endobronchial occlusion at the level of the right mainstem bronchus. There may also be a significant component of pleural effusion. Diarrhea- Cdiff: neg PICC line infection with CoNS, -Bcx 08/21 Neg -s/p removal PICC 08/18; s/p new pICC line 08/25 -Bcx 08/15 1/ + PICC line, peripheral NTD; Bcx 08/18 : 2/4 CoNS; cath tip cx CoNS -echo 07/31: limited views, no obvious vegetations or significant valve abnormalities Recent Blood Cx: CoNS probable line infection (PICC from out side facility was removed on and replaced on 08/03 ) Complete opacification R lung- , much improved now, possibly due to mucous plug ; recurrent -CXR 08/22: Interim near complete opacification of the right lung, probably due to near complete right lung atelectasis, given evidence of bronchial occlusion and mediastinal shift indicating volume loss. Component of pleural fluid also possible,however.New or increased moderate left pleural effusion ? ventilatory-associated pneumonia Scx: MDR PSA (S gentamicin, Colistin), repeat sp cx 08/13 normal pipo- Low suspicion overall for TB CCT: Extensive interstitial opacities throughout the right lung as well as groundglass opacities. Large differential, suspect on the basis of pulmonary edema, particularly given evidence of edema elsewhere, but possibility of infection, including possible tuberculosis, should also be considered. Right lower lobe consolidation, may reflect pneumonia (chest x-ray:Considerably worse pleural and parenchymal disease on the right. Slightly worse in pleural and parenchymal disease on the left, over 3 days ) Influenza: Neg -AFB sp cx smear neg x3, cx p, MTB PCR neg -Blatomyces ab neg, CrAg neg, Histoplasma ID neg, CF not done due to anticomplement activity; Cocci ab pending -HIV ag/ab neg -TB spot + (suspect latent rather than active, final AFB cx pending), MTB PCR neg Multiple decubitus of lower extremity. Left heel unstageable decubitus (no purulent discharge.) probable osteo per bone scan -no wound cx obtained NM : flow, blood pool, static activity involving the calcaneal tuberosity on the left. 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 Evidence of anasarca, with generalized edema of the subcutaneous fat,retroperitoneal and mesenteric fat, trace ascites, small left pleural effusion. Possible wall thickening of proximal and mid transverse and ascending colon. Could represent colitis although possibly artifactual due to under distention. Very questionable wall thickening of the duodenum and proximal jejunum, if real could indicate duodenitis/enteritis and/or peptic ulcer disease. Gas bubbles in the anterior aspect of the right rectus abdominis muscle belly. Cholelithiasis. Diffusely somewhat prominent pancreas, probably baseline for this patient, but the possibility of acute pancreatitis should be considered. Scattered punctate microcalcifications may represent sequelae of chronic calcifying pancreatitis, versus arterial calcifications. Ectasia of the pancreatic duct could also indicate chronic calcified pancreatitis no definite pancreatic head mass, although evaluation for such is limited in the absence of IVcontrast US Borderline gallbladder wall thickening, more likely artifact due to underdistention than real. Diarrhea CT: ? wall thickening of proximal and mid transverse and ascending colon.duodenum and proximal jejunum, and probable acute pancreatitis should be considered. ? Clostridium difficile: Neg Pl effusion: exudate , Pr : 4.4 , cell count : P ro empyema 08/12 SP ultrasound-guided thoracentesis, of 400 cc BETSY Diabetes. Anemia. GERD. Hypertension. History of TBI. Seizure disorder PLAN: - Meropenem and IV Vancomycin d# 4 /09/03 SP PO Vancomycin 125mg qid Cdiff: neg 09/02 SP V Daptomycin and Ceftriaxone # and Flagyl #14 3 SP INH colistin / for MDR PsA PNA 08/18 SP IV Vancomycin #4 3/13 SP Micafungin #5 3/ SP Meropenem #10 3/11 SP IV Colistin #9 3/4 SP vancomycin d# 9 and Zosyn and Gent d# 4 3/ SP cefepime day # 5 -f/u CXR, 2 sets of Bcx PICC line care Monitor chest x-ray f/u cocci ab, fungitell, AFB final cultures Monitor CBC Subjective Allergies: Coded Allergies: No Known Allergies (Unverified , 07/31/17) Subjective no acute event fd afebrile Objective Vital Signs Last 24 Hour Vital Signs Date Time Temp Pulse Resp B/P (MAP) Pulse Ox O2 Delivery O2 Flow Rate FiO2 09/05/17 10:30 102 18 30 09/05/17 09:01 102 18 30 09/05/17 08:00 30 09/05/17 08:00 98.2 99 18 127/83 99 Mechanical Ventilator 30 98.2 09/05/17 08:00 99 09/05/17 07:29 100 20 30 09/05/17 05:06 102 19 30 09/05/17 04:00 30 09/05/17 04:00 97 09/05/17 04:00 98.0 99 19 125/85 100 Mechanical Ventilator 30 98.0 09/05/17 03:03 101 19 30 09/05/17 01:07 101 18 30 09/05/17 00:00 98.4 104 18 101/81 100 Mechanical Ventilator 30 98.4 09/05/17 00:00 30 09/04/17 23:28 106 09/04/17 22:43 106 20 30 09/04/17 21:04 104 18 30 09/04/17 20:00 98.6 103 18 120/80 100 Mechanical Ventilator 30 98.6 09/04/17 20:00 30 09/04/17 19:23 103 18 30 09/04/17 19:05 104 09/04/17 16:39 105 18 30 09/04/17 16:00 110 09/04/17 16:00 30 09/04/17 16:00 98.1 107 18 113/74 100 Mechanical Ventilator 30 98.1 09/04/17 14:38 107 18 30 09/04/17 12:46 105 18 30 Height (Feet): 6 Height (Inches): 0.00 Weight (Pounds): 127 HEENT: anicteric Respiratory/Chest: no accessory muscle use Cardiovascular: no gallop/murmur Abdomen: soft, non tender Microbiology Date/Time Source Procedure Growth Status 09/03/17 01:00 Stool Clostridium difficile Toxin Assay - Final Complete Laboratory Tests Test 09/04/17 16:15 09/04/17 19:00 09/05/17 04:30 Vancomycin Level Trough 16.6 ug/mL (5.0-12.0) H Activated Partial Thromboplast Time 32 SEC (23-33) White Blood Count 12.1 K/UL (4.8-10.8) H Red Blood Count 2.80 M/UL (4.70-6.10) L Hemoglobin 8.1 G/DL (14.2-18.0) L Hematocrit 24.5 % (42.0-52.0) L Mean Corpuscular Volume 88 FL (80-99) Mean Corpuscular Hemoglobin 28.9 PG (27.0-31.0) Mean Corpuscular Hemoglobin Concent 33.1 G/DL (32.0-36.0) Red Cell Distribution Width 16.1 % (11.6-14.8) H Platelet Count 359 K/UL (150-450) Mean Platelet Volume 6.7 FL (6.5-10.1) Neutrophils (%) (Auto) 73.1 % (45.0-75.0) Lymphocytes (%) (Auto) 12.5 % (20.0-45.0) L Monocytes (%) (Auto) 10.3 % (1.0-10.0) H Eosinophils (%) (Auto) 3.2 % (0.0-3.0) H Basophils (%) (Auto) 0.8 % (0.0-2.0) Sodium Level 142 MMOL/L (136-145) Potassium Level 4.1 MMOL/L (3.5-5.1) Chloride Level 110 MMOL/L (98-107) H Carbon Dioxide Level 23 MMOL/L (21-32) Anion Gap 9 mmol/L (5-15) Blood Urea Nitrogen 46 mg/dL (7-18) H Creatinine 1.2 MG/DL (0.55-1.30) Estimat Glomerular Filtration Rate > 60 mL/min (>60) Glucose Level 121 MG/DL (74-106) H Calcium Level 8.9 MG/DL (8.5-10.1) Total Bilirubin 0.3 MG/DL (0.2-1.0) Aspartate Amino Transf (AST/SGOT) 50 U/L (15-37) H Alanine Aminotransferase (ALT/SGPT) 22 U/L (12-78) Alkaline Phosphatase 226 U/L (46-116) H Pro-B-Type Natriuretic Peptide 439 pg/mL (0-125) H Total Protein 8.4 G/DL (6.4-8.2) H Albumin 1.9 G/DL (3.4-5.0) L Globulin 6.5 g/dL Albumin/Globulin Ratio 0.3 (1.0-2.7) L Current Medications Medications (Trade) Dose Ordered Sig/Serena Route PRN Reason Start Time Stop Time Status Last Admin Dose Admin Acetaminophen (Tylenol) 650 mg Q4H PRN GT Mild Pain/Temp > 100.5 08/11/17 20:45 09/10/17 20:44 09/02/17 20:48 Amiodarone HCl (Cordarone) 200 mg EVERY 12 HOURS GT 08/28/17 09:00 09/27/17 09:00 09/05/17 09:08 Chlorhexidine Gluconate (Ngoc-Hex 2%) 1 applic DAILY@2000 TOPIC 08/24/17 20:00 09/23/17 19:59 09/04/17 21:16 Dextrose (Dextrose 50%) STAT PRN IV Hypoglycemia 08/30/17 09:30 09/29/17 09:29 Heparin Sodium (Porcine) (Heparin 5000 units/ml) 5,000 units EVERY 12 HOURS SUBQ 08/28/17 09:00 09/27/17 09:00 09/04/17 21:17 Levetiracetam (Keppra) 250 mg BID GT 08/28/17 09:00 09/27/17 09:00 09/05/17 09:09 Meropenem 1 gm/ Dextrose 55 ml @ 110 mls/hr Q8HR IVPB 09/02/17 16:00 09/07/17 15:59 09/05/17 05:44 Ondansetron HCl (Zofran) 4 mg Q6H PRN IVP Nausea & Vomiting 08/28/17 08:30 09/27/17 08:29 Pantoprazole (Protonix) 40 mg DAILY IV 08/01/17 09:00 09/30/17 08:59 09/05/17 09:08 Phenytoin (Dilantin) 100 mg Q12HR GT 08/09/17 16:00 09/08/17 15:59 09/05/17 09:09 Polyethylene Glycol (Miralax) 17 gm DAILYPRN PRN ORAL Constipation 08/28/17 08:00 09/27/17 08:00 Vancomycin HCl (Vanco rx to dose) 1 ea DAILY PRN MISC Per rx protocol 09/02/17 13:30 10/02/17 13:29 Vancomycin/Sodium Chloride 250 ml @ 166.667 mls/hr Q24H IVPB 09/03/17 17:00 09/08/17 16:59 09/04/17 17:50 Norman Chen MD Sep 05, 2017 12:07
--- NOTE | 2017-09-05 12:34 | Diagnostic Imaging Report ---
Indication: And possible left pleural effusion, scanned in anticipation of thoracentesis Technique: Grayscale images of the left chest Comparison: none Findings: Evaluation is somewhat limited, as bandages cover portions of the left hemithorax. Scans above and below the bandages demonstrate no evidence of pleural fluid Impression: Exam somewhat limited. No gross pleural effusion. Therefore no intervention performed
[2017-09-05 13:00] VITALS: BP 110/73
[2017-09-05 16:00] VITALS: BP 106/72
[2017-09-05] MEDS: Vancomycin 750mg/NS 250ml IVPB SCH (17:45)
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
[2017-09-05 19:43] VITALS: BP 106/72
[2017-09-05] MEDS: Dyna-Hex 2% Top Sol 2oz TOPIC SCH (20:27)
[2017-09-06] VITALS: BP 128/79
[2017-09-06 04:00] VITALS: BP 127/77
[2017-09-06] MEDS: Meropenem 1 GM in D5W 55 ML IVPB SCH ×3 (05:55→21:08)
[2017-09-06 07:37] LABS: BASOPHILS % (AUTO) 0.6 % (0.0-2.0); HEMATOCRIT 26.4 % (42.0-52.0); HEMOGLOBIN 9.3 G/DL (14.2-18.0); MEAN CORPUSCULAR VOLUME 87 FL (80-99); MONOCYTES % (AUTO) 8.5 % (1.0-10.0); NEUTROPHILS % (AUTO) 69.9 % (45.0-75.0); PLATELET COUNT 350 K/UL (150-450); RED BLOOD COUNT 3.02 M/UL (4.70-6.10); RED CELL DISTRIBUTION WIDTH 15.6 % (11.6-14.8); WHITE BLOOD COUNT 10.6 K/UL (4.8-10.8)
[2017-09-06 07:42] LABS: ALANINE AMINOTRANSFERASE 27 U/L (12-78); ALBUMIN/GLOBULIN RATIO 0.3 (1.0-2.7); ALKALINE PHOSPHATASE 280 U/L (46-116); ANION GAP 10 mmol/L (5-15); ASPARTATE AMINO TRANSFERASE 68 U/L (15-37); BILIRUBIN,TOTAL 0.3 MG/DL (0.2-1.0); BLOOD UREA NITROGEN 47 mg/dL (7-18); CALCIUM 8.9 MG/DL (8.5-10.1); CARBON DIOXIDE 20 MMOL/L (21-32); CHLORIDE 110 MMOL/L (98-107); CREATININE 1.1 MG/DL (0.55-1.30); PHOSPHORUS 3.1 MG/DL (2.5-4.9); POTASSIUM 4.2 MMOL/L (3.5-5.1); SODIUM 140 MMOL/L (136-145)
[2017-09-06 08:00] VITALS: BP 117/74
[2017-09-06] MEDS: Phenytoin Susp 100mg/4ml GT SCH ×2 (08:13→21:00)
[2017-09-06] MEDS: Pantoprazole Inj IV SCH (08:13)
[2017-09-06] MEDS: levETIRAcetam 500mg/5ml Liquid GT SCH ×2 (08:13→18:25)
[2017-09-06] MEDS: Amiodarone 200mg tab GT SCH ×2 (08:13→21:00)
[2017-09-06] MEDS: Heparin 5000 units/ml inj SUBQ SCH ×2 (08:15→20:59)
--- NOTE | 2017-09-06 10:14 | Pulmonolgy Critical Care Note ---
Critical Care - Asmt/Plan Problems: (1) Sepsis (2) Chronic respiratory failure (3) UTI (urinary tract infection) (4) Feeding by G-tube (5) Pressure ulcer Assessment & Plan: wbc WNL< afebrile, awaiting new cultures. all negative sofar Respiratory: monitor respiratory rate, adjust FIO2, CXR Cardiac: continue to monitor HR/BP Renal: F/U I&O Infectious Disease: check cultures Gastrointestinal: continue feedings/current rate, hold feedings Endocrine: check TSH, continue sliding scale insulin Hematologic: monitor H/H, transfuse if hgb<8.5 Neurologic: PRN Ativan, PRN Morphine, keep patient comfortable Affect: PRN ativan Notes Reviewed: stuffer, renal Discussed with: nurses, consultants, rn case manager hospicewarehouse distribution manager - Objective Last 24 Hour Vital Signs Date Time Temp Pulse Resp B/P (MAP) Pulse Ox O2 Delivery O2 Flow Rate FiO2 09/06/17 08:00 30 09/06/17 08:00 97.9 98 25 117/74 99 Mechanical Ventilator 30 97.9 09/06/17 08:00 97 09/06/17 06:55 107 20 30 09/06/17 05:11 106 20 30 09/06/17 04:00 97.7 99 25 127/77 94 Mechanical Ventilator 30 97.7 09/06/17 04:00 30 09/06/17 03:29 98 09/06/17 03:22 115 23 30 09/06/17 01:20 105 25 30 09/06/17 00:00 98.0 98 24 128/79 100 Mechanical Ventilator 30 98.0 09/05/17 23:57 30 09/05/17 23:17 97 09/05/17 23:14 101 22 30 09/05/17 21:14 104 23 30 09/05/17 20:00 30 09/05/17 19:43 97.7 103 27 106/72 99 Mechanical Ventilator 30 97.7 09/05/17 19:20 103 09/05/17 18:45 102 25 30 09/05/17 17:12 99 21 30 09/05/17 16:00 97.8 102 18 106/72 98 Mechanical Ventilator 30 97.8 09/05/17 16:00 30 09/05/17 16:00 101 09/05/17 15:10 103 23 30 09/05/17 13:26 99 20 30 09/05/17 13:00 99.0 19 110/73 98 Mechanical Ventilator 30 99.0 09/05/17 12:58 30 09/05/17 12:37 97 09/05/17 10:30 102 18 30 Status: awake Condition: critical Neck: full ROM Lungs: clear Heart: HR/BP stable, HR/BP unstable Abdomen: soft, active bowel sounds Extremities: no C/C/E, edema Accucheck: 131 Critical Care - Subjective ROS Limited/Unobtainable: No Condition: critical EKG Rhythm: Sinus Bradycardia FI02: 30 Vent Support Breath Rate: 18 Vent Support Mode: AC Vent Tidal Volume: 550 Sputum Amount: Large PEEP: 5.0 PIP: 35 Tube Feeding Amount: 55 I&O: Intake and Output 09/05/17 09/06/17 19:00 07:00 Intake Total 811.667 ml 701.667 ml Output Total 800 ml 750 ml Balance 11.667 ml -48.333 ml Free Water 50 ml 150 ml IV Total 221.667 ml 276.667 ml Tube Feeding 440 ml 275 ml Other 100 ml Output Urine Total 750 ml 650 ml Stool Total 50 ml 100 ml CXR: no change Labs: Laboratory Tests Test 09/06/17 06:00 White Blood Count 10.6 K/UL (4.8-10.8) Red Blood Count 3.02 M/UL (4.70-6.10) L Hemoglobin 9.3 G/DL (14.2-18.0) L Hematocrit 26.4 % (42.0-52.0) L Mean Corpuscular Volume 87 FL (80-99) Mean Corpuscular Hemoglobin 30.7 PG (27.0-31.0) Mean Corpuscular Hemoglobin Concent 35.1 G/DL (32.0-36.0) Red Cell Distribution Width 15.6 % (11.6-14.8) H Platelet Count 350 K/UL (150-450) Mean Platelet Volume 6.6 FL (6.5-10.1) Neutrophils (%) (Auto) 69.9 % (45.0-75.0) Lymphocytes (%) (Auto) 16.0 % (20.0-45.0) L Monocytes (%) (Auto) 8.5 % (1.0-10.0) Eosinophils (%) (Auto) 5.0 % (0.0-3.0) H Basophils (%) (Auto) 0.6 % (0.0-2.0) Sodium Level 140 MMOL/L (136-145) Potassium Level 4.2 MMOL/L (3.5-5.1) Chloride Level 110 MMOL/L (98-107) H Carbon Dioxide Level 20 MMOL/L (21-32) L Anion Gap 10 mmol/L (5-15) Blood Urea Nitrogen 47 mg/dL (7-18) H Creatinine 1.1 MG/DL (0.55-1.30) Estimat Glomerular Filtration Rate > 60 mL/min (>60) Glucose Level 127 MG/DL (74-106) H Calcium Level 8.9 MG/DL (8.5-10.1) Phosphorus Level 3.1 MG/DL (2.5-4.9) Magnesium Level 1.9 MG/DL (1.8-2.4) Total Bilirubin 0.3 MG/DL (0.2-1.0) Aspartate Amino Transf (AST/SGOT) 68 U/L (15-37) H Alanine Aminotransferase (ALT/SGPT) 27 U/L (12-78) Alkaline Phosphatase 280 U/L (46-116) H Total Protein 8.5 G/DL (6.4-8.2) H Albumin 2.0 G/DL (3.4-5.0) L Globulin 6.5 g/dL Albumin/Globulin Ratio 0.3 (1.0-2.7) L Ernestina James MD Sep 06, 2017 10:14
[2017-09-06 12:00] VITALS: BP 117/76
--- NOTE | 2017-09-06 12:40 | Infectious Diseases Prog Note ---
Assessment/Plan Assessment/Plan ASSESSMENT: The patient is a 62-year-old male with: Fever, SP leukocytosis SP -09/01 u/a wbc tntc; ucx Diann ( colonizer at this time as WBC improving ) -08/14 Cdiff neg -HIDA scan neg - CXR 09/02light interval increase in interstitial opacification/edema compared to the prior exam. -CXR 08/17: Interval expansion of the previously atelectatic right lung. Considerable infiltrate versus edema throughout the right lung. Increasing left basilar atelectasis and possibly infiltrate -CXR 08/16: Complete opacification right hemithorax. Probably due to atelectasis related to endobronchial occlusion at the level of the right mainstem bronchus. There may also be a significant component of pleural effusion. Diarrhea- Cdiff: neg PICC line infection with CoNS, -Bcx 08/21 Neg -s/p removal PICC 08/18; s/p new pICC line 08/25 -Bcx 08/15 1/ + PICC line, peripheral NTD; Bcx 08/18 : 2/4 CoNS; cath tip cx CoNS -echo 07/31: limited views, no obvious vegetations or significant valve abnormalities Recent Blood Cx: CoNS probable line infection (PICC from out side facility was removed on and replaced on 08/03 ) Complete opacification R lung- , much improved now, possibly due to mucous plug ; recurrent -CXR 08/22: Interim near complete opacification of the right lung, probably due to near complete right lung atelectasis, given evidence of bronchial occlusion and mediastinal shift indicating volume loss. Component of pleural fluid also possible,however.New or increased moderate left pleural effusion ? ventilatory-associated pneumonia Scx: MDR PSA (S gentamicin, Colistin), repeat sp cx 08/13 normal pipo- Low suspicion overall for TB CCT: Extensive interstitial opacities throughout the right lung as well as groundglass opacities. Large differential, suspect on the basis of pulmonary edema, particularly given evidence of edema elsewhere, but possibility of infection, including possible tuberculosis, should also be considered. Right lower lobe consolidation, may reflect pneumonia (chest x-ray:Considerably worse pleural and parenchymal disease on the right. Slightly worse in pleural and parenchymal disease on the left, over 3 days ) Influenza: Neg -AFB sp cx smear neg x3, cx p, MTB PCR neg -Blatomyces ab neg, CrAg neg, Histoplasma ID neg, CF not done due to anticomplement activity; Cocci ab pending -HIV ag/ab neg -TB spot + (suspect latent rather than active, final AFB cx pending), MTB PCR neg Multiple decubitus of lower extremity. Left heel unstageable decubitus (no purulent discharge.) probable osteo per bone scan -no wound cx obtained NM : flow, blood pool, static activity involving the calcaneal tuberosity on the left. 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 Evidence of anasarca, with generalized edema of the subcutaneous fat,retroperitoneal and mesenteric fat, trace ascites, small left pleural effusion. Possible wall thickening of proximal and mid transverse and ascending colon. Could represent colitis although possibly artifactual due to under distention. Very questionable wall thickening of the duodenum and proximal jejunum, if real could indicate duodenitis/enteritis and/or peptic ulcer disease. Gas bubbles in the anterior aspect of the right rectus abdominis muscle belly. Cholelithiasis. Diffusely somewhat prominent pancreas, probably baseline for this patient, but the possibility of acute pancreatitis should be considered. Scattered punctate microcalcifications may represent sequelae of chronic calcifying pancreatitis, versus arterial calcifications. Ectasia of the pancreatic duct could also indicate chronic calcified pancreatitis no definite pancreatic head mass, although evaluation for such is limited in the absence of IVcontrast US Borderline gallbladder wall thickening, more likely artifact due to underdistention than real. Diarrhea CT: ? wall thickening of proximal and mid transverse and ascending colon.duodenum and proximal jejunum, and probable acute pancreatitis should be considered. ? Clostridium difficile: Neg Pl effusion: exudate , Pr : 4.4 , cell count : P ro empyema 08/12 SP ultrasound-guided thoracentesis, of 400 cc BETSY Diabetes. Anemia. GERD. Hypertension. History of TBI. Seizure disorder PLAN: - Meropenem and IV Vancomycin d# 5 /7 09/03 SP PO Vancomycin 125mg qid Cdiff: neg 09/02 SP V Daptomycin and Ceftriaxone # and Flagyl #14 08/19 SP INH colistin / for MDR PsA PNA 08/18 SP IV Vancomycin #4 3/13 SP Micafungin #5 / SP Meropenem #10 3/11 SP IV Colistin #9 3/4 SP vancomycin d# 9 and Zosyn and Gent d# 4 3/ SP cefepime day # 5 -f/u CXR, 2 sets of Bcx PICC line care Monitor chest x-ray f/u cocci ab, fungitell, AFB final cultures Monitor CBC Subjective Allergies: Coded Allergies: No Known Allergies (Unverified , 07/31/17) Subjective no acute event fd afebrile Objective Vital Signs Last 24 Hour Vital Signs Date Time Temp Pulse Resp B/P (MAP) Pulse Ox O2 Delivery O2 Flow Rate FiO2 09/06/17 11:06 108 20 30 09/06/17 08:58 104 20 30 09/06/17 08:00 30 09/06/17 08:00 97.9 98 25 117/74 99 Mechanical Ventilator 30 97.9 09/06/17 08:00 97 09/06/17 06:55 107 20 30 09/06/17 05:11 106 20 30 09/06/17 04:00 97.7 99 25 127/77 94 Mechanical Ventilator 30 97.7 09/06/17 04:00 30 09/06/17 03:29 98 09/06/17 03:22 115 23 30 09/06/17 01:20 105 25 30 09/06/17 00:00 98.0 98 24 128/79 100 Mechanical Ventilator 30 98.0 09/05/17 23:57 30 09/05/17 23:17 97 09/05/17 23:14 101 22 30 09/05/17 21:14 104 23 30 09/05/17 20:00 30 09/05/17 19:43 97.7 103 27 106/72 99 Mechanical Ventilator 30 97.7 09/05/17 19:20 103 09/05/17 18:45 102 25 30 09/05/17 17:12 99 21 30 09/05/17 16:00 97.8 102 18 106/72 98 Mechanical Ventilator 30 97.8 09/05/17 16:00 30 09/05/17 16:00 101 09/05/17 15:10 103 23 30 09/05/17 13:26 99 20 30 09/05/17 13:00 99.0 19 110/73 98 Mechanical Ventilator 30 99.0 09/05/17 12:58 30 Height (Feet): 6 Height (Inches): 0.00 Weight (Pounds): 132 HEENT: anicteric Respiratory/Chest: normal breath sounds Cardiovascular: normal rate Abdomen: soft, non tender Laboratory Tests Test 09/06/17 06:00 White Blood Count 10.6 K/UL (4.8-10.8) Red Blood Count 3.02 M/UL (4.70-6.10) L Hemoglobin 9.3 G/DL (14.2-18.0) L Hematocrit 26.4 % (42.0-52.0) L Mean Corpuscular Volume 87 FL (80-99) Mean Corpuscular Hemoglobin 30.7 PG (27.0-31.0) Mean Corpuscular Hemoglobin Concent 35.1 G/DL (32.0-36.0) Red Cell Distribution Width 15.6 % (11.6-14.8) H Platelet Count 350 K/UL (150-450) Mean Platelet Volume 6.6 FL (6.5-10.1) Neutrophils (%) (Auto) 69.9 % (45.0-75.0) Lymphocytes (%) (Auto) 16.0 % (20.0-45.0) L Monocytes (%) (Auto) 8.5 % (1.0-10.0) Eosinophils (%) (Auto) 5.0 % (0.0-3.0) H Basophils (%) (Auto) 0.6 % (0.0-2.0) Sodium Level 140 MMOL/L (136-145) Potassium Level 4.2 MMOL/L (3.5-5.1) Chloride Level 110 MMOL/L (98-107) H Carbon Dioxide Level 20 MMOL/L (21-32) L Anion Gap 10 mmol/L (5-15) Blood Urea Nitrogen 47 mg/dL (7-18) H Creatinine 1.1 MG/DL (0.55-1.30) Estimat Glomerular Filtration Rate > 60 mL/min (>60) Glucose Level 127 MG/DL (74-106) H Calcium Level 8.9 MG/DL (8.5-10.1) Phosphorus Level 3.1 MG/DL (2.5-4.9) Magnesium Level 1.9 MG/DL (1.8-2.4) Total Bilirubin 0.3 MG/DL (0.2-1.0) Aspartate Amino Transf (AST/SGOT) 68 U/L (15-37) H Alanine Aminotransferase (ALT/SGPT) 27 U/L (12-78) Alkaline Phosphatase 280 U/L (46-116) H Total Protein 8.5 G/DL (6.4-8.2) H Albumin 2.0 G/DL (3.4-5.0) L Globulin 6.5 g/dL Albumin/Globulin Ratio 0.3 (1.0-2.7) L Current Medications Medications (Trade) Dose Ordered Sig/Serena Route PRN Reason Start Time Stop Time Status Last Admin Dose Admin Acetaminophen (Tylenol) 650 mg Q4H PRN GT Mild Pain/Temp > 100.5 08/11/17 20:45 09/10/17 20:44 09/02/17 20:48 Amiodarone HCl (Cordarone) 200 mg EVERY 12 HOURS GT 08/28/17 09:00 09/27/17 09:00 09/06/17 08:13 Chlorhexidine Gluconate (Ngoc-Hex 2%) 1 applic DAILY@2000 TOPIC 08/24/17 20:00 09/23/17 19:59 09/05/17 20:27 Dextrose (Dextrose 50%) STAT PRN IV Hypoglycemia 08/30/17 09:30 09/29/17 09:29 Heparin Sodium (Porcine) (Heparin 5000 units/ml) 5,000 units EVERY 12 HOURS SUBQ 08/28/17 09:00 09/27/17 09:00 09/06/17 08:15 Levetiracetam (Keppra) 250 mg BID GT 08/28/17 09:00 09/27/17 09:00 09/06/17 08:13 Meropenem 1 gm/ Dextrose 55 ml @ 110 mls/hr Q8HR IVPB 09/02/17 16:00 09/07/17 15:59 09/06/17 05:55 Ondansetron HCl (Zofran) 4 mg Q6H PRN IVP Nausea & Vomiting 08/28/17 08:30 09/27/17 08:29 Pantoprazole (Protonix) 40 mg DAILY IV 08/01/17 09:00 09/30/17 08:59 09/06/17 08:13 Phenytoin (Dilantin) 100 mg Q12HR GT 08/09/17 16:00 09/08/17 15:59 09/06/17 08:13 Polyethylene Glycol (Miralax) 17 gm DAILYPRN PRN ORAL Constipation 08/28/17 08:00 09/27/17 08:00 Vancomycin HCl (Vanco rx to dose) 1 ea DAILY PRN MISC Per rx protocol 09/02/17 13:30 10/02/17 13:29 Vancomycin/Sodium Chloride 250 ml @ 166.667 mls/hr Q24H IVPB 09/03/17 17:00 09/08/17 16:59 09/05/17 17:45 Norman Chen MD Sep 06, 2017 12:40
[2017-09-06 16:00] VITALS: BP 124/79
[2017-09-06] MEDS: Vancomycin 750mg/NS 250ml IVPB SCH (16:48)
--- NOTE | 2017-09-06 19:34 | General Progress Note ---
Assessment/Plan Assessment/Plan #. Leukocytosis, likely secondary to infection. --> On broad-spectrum antibiotics. --> Wbc count downtrending and improving. --> Wbc levels within normal limits yesterday #. Anemia of chronic disease. Monitor closely. --> ESR 134. Hemoglobin has been above goal. --> Anemia workup reviewed. --> Iron 37, TIBC 99, Vit B12 535, Folate 11.4 --> Blood transfusion not required unless symptomatic or hgb below 7. #. Coagulopathy. Likely due to decreased vitamin K intake. Imaging reviewed. --> Prominent pancreas, calcification is noted. --> On anticoagulation -- heparin sq #. Dysphagia, status post percutaneous endoscopic gastrostomy tube. #. Cholelithiasis is noted on ultrasound. Borderline diabetic --> HIDA scan is negative. #. Transaminitis has since improved, potentially secondary to medications v other causes Subjective Date patient seen: Sep 05, 2017 Constitutional: Denies: no symptoms, chills, diaphoresis, fever, malaise, weakness, other HEENT: Denies: no symptoms, eye pain, blurred vision, tearing, double vision, ear pain, ear discharge, nose pain, nose congestion, throat pain, throat swelling, mouth pain, mouth swelling, other Cardiovascular: Denies: no symptoms, chest pain, edema, irregular heart rate, lightheadedness, palpitations, syncope, other Respiratory: Denies: no symptoms, cough, orthopnea, shortness of breath, SOB with excertion, SOB at rest, sputum, stridor, wheezing, other Gastrointestinal/Abdominal: Denies: no symptoms, abdomen distended, abdominal pain, black stools, tarry stools, blood in stool, constipated, diarrhea, difficulty swallowing, nausea, poor appetite, poor fluid intake, rectal bleeding , vomiting, other Genitourinary: Denies: no symptoms, burning, discharge, frequency, flank pain, hematuria, incontinence, pain, urgency, other Neurologic/Psychiatric: Denies: no symptoms, anxiety, depressed, emotional problems, headache, numbness, paresthesia, pre-existing deficit, seizure, tingling, tremors, weakness, other Hematologic/Lymphatic: Reports: anemia Allergies: Coded Allergies: No Known Allergies (Unverified , 07/31/17) Subjective Poor prognosis. Wbc count downtrended. Afebrile. Objective Last 24 Hour Vital Signs Date Time Temp Pulse Resp B/P (MAP) Pulse Ox O2 Delivery O2 Flow Rate FiO2 09/06/17 16:51 97 25 30 09/06/17 16:12 30 09/06/17 16:00 93 09/06/17 16:00 98.4 94 24 124/79 100 Mechanical Ventilator 30 98.4 09/06/17 15:11 95 23 30 09/06/17 12:42 94 24 30 09/06/17 12:00 94 09/06/17 12:00 98.4 95 24 117/76 100 Mechanical Ventilator 30 98.4 09/06/17 12:00 30 09/06/17 11:06 108 20 30 09/06/17 08:58 104 20 30 09/06/17 08:00 30 09/06/17 08:00 97.9 98 25 117/74 99 Mechanical Ventilator 30 97.9 09/06/17 08:00 97 09/06/17 06:55 107 20 30 09/06/17 05:11 106 20 30 09/06/17 04:00 97.7 99 25 127/77 94 Mechanical Ventilator 30 97.7 09/06/17 04:00 30 09/06/17 03:29 98 09/06/17 03:22 115 23 30 09/06/17 01:20 105 25 30 09/06/17 00:00 98.0 98 24 128/79 100 Mechanical Ventilator 30 98.0 09/05/17 23:57 30 09/05/17 23:17 97 09/05/17 23:14 101 22 30 09/05/17 21:14 104 23 30 09/05/17 20:00 30 09/05/17 19:43 97.7 103 27 106/72 99 Mechanical Ventilator 30 97.7 Intake and Output 09/05/17 09/06/17 19:00 07:00 Intake Total 811.667 ml 701.667 ml Output Total 800 ml 750 ml Balance 11.667 ml -48.333 ml Free Water 50 ml 150 ml IV Total 221.667 ml 276.667 ml Tube Feeding 440 ml 275 ml Other 100 ml Output Urine Total 750 ml 650 ml Stool Total 50 ml 100 ml Laboratory Tests 09/06/17 06:00: White Blood Count 10.6, Red Blood Count 3.02L, Hemoglobin 9.3L, Hematocrit 26.4L , Mean Corpuscular Volume 87, Mean Corpuscular Hemoglobin 30.7, Mean Corpuscular Hemoglobin Concent 35.1, Red Cell Distribution Width 15.6H, Platelet Count 350, Mean Platelet Volume 6.6, Neutrophils (%) (Auto) 69.9, Lymphocytes (%) (Auto) 16.0L, Monocytes (%) (Auto) 8.5, Eosinophils (%) (Auto) 5.0H, Basophils (%) (Auto) 0.6, Sodium Level 140, Potassium Level 4.2, Chloride Level 110H, Carbon Dioxide Level 20L, Anion Gap 10, Blood Urea Nitrogen 47H, Creatinine 1.1, Estimat Glomerular Filtration Rate > 60, Glucose Level 127H, Calcium Level 8.9, Phosphorus Level 3.1, Magnesium Level 1.9, Total Bilirubin 0.3, Aspartate Amino Transf (AST/SGOT) 68H, Alanine Aminotransferase (ALT/SGPT) 27, Alkaline Phosphatase 280H, Total Protein 8.5H, Albumin 2.0L, Globulin 6.5, Albumin/Globulin Ratio 0.3L Height (Feet): 6 Height (Inches): 0.00 Weight (Pounds): 132 General Appearance: lethargic Respiratory/Chest: decreased breath sounds López Vásquez MD Sep 06, 2017 19:34
[2017-09-06 20:00] VITALS: BP 141/85
[2017-09-06] MEDS: Dyna-Hex 2% Top Sol 2oz TOPIC SCH (20:59)
[2017-09-07] VITALS: BP 149/81
[2017-09-07 04:00] VITALS: BP 132/73
[2017-09-07 05:20] LABS: BASOPHILS % (AUTO) 0.7 % (0.0-2.0); HEMATOCRIT 28.4 % (42.0-52.0); HEMOGLOBIN 9.2 G/DL (14.2-18.0); LYMPHOCYTES % (AUTO) 14.5 % (20.0-45.0); MEAN CORPUSCULAR VOLUME 87 FL (80-99); MONOCYTES % (AUTO) 8.7 % (1.0-10.0); NEUTROPHILS % (AUTO) 71.1 % (45.0-75.0); PLATELET COUNT 359 K/UL (150-450); RED BLOOD COUNT 3.26 M/UL (4.70-6.10); RED CELL DISTRIBUTION WIDTH 15.7 % (11.6-14.8); WHITE BLOOD COUNT 8.1 K/UL (4.8-10.8)
[2017-09-07 05:48] LABS: ALANINE AMINOTRANSFERASE 33 U/L (12-78); ALBUMIN/GLOBULIN RATIO 0.3 (1.0-2.7); ALKALINE PHOSPHATASE 285 U/L (46-116); ANION GAP 10 mmol/L (5-15); ASPARTATE AMINO TRANSFERASE 72 U/L (15-37); BILIRUBIN,TOTAL 0.3 MG/DL (0.2-1.0); BLOOD UREA NITROGEN 42 mg/dL (7-18); CALCIUM 9.1 MG/DL (8.5-10.1); CARBON DIOXIDE 20 MMOL/L (21-32); CHLORIDE 108 MMOL/L (98-107); CREATININE 1.1 MG/DL (0.55-1.30); SODIUM 138 MMOL/L (136-145)
[2017-09-07] MEDS: Meropenem 1 GM in D5W 55 ML IVPB SCH ×3 (05:56→21:45)
[2017-09-07 08:00] VITALS: BP 126/78
[2017-09-07] MEDS: Amiodarone 200mg tab GT SCH ×2 (08:37→20:10)
[2017-09-07] MEDS: Pantoprazole Inj IV SCH (08:37)
[2017-09-07] MEDS: Phenytoin Susp 100mg/4ml GT SCH ×2 (08:37→20:09)
[2017-09-07] MEDS: levETIRAcetam 500mg/5ml Liquid GT SCH ×2 (08:37→17:34)
[2017-09-07] MEDS: Heparin 5000 units/ml inj SUBQ SCH ×2 (08:38→20:09)
--- NOTE | 2017-09-07 11:01 | Pulmonolgy Critical Care Note ---
Critical Care - Asmt/Plan Problems: (1) Sepsis (2) Chronic respiratory failure (3) UTI (urinary tract infection) (4) Feeding by G-tube (5) Pressure ulcer Assessment & Plan: still large amount of diarrhea Respiratory: monitor respiratory rate Cardiac: continue to monitor HR/BP Renal: F/U I&O Infectious Disease: check cultures Gastrointestinal: continue feedings/current rate, hold feedings, other - add morpnine liqued for severe diarrhea. Endocrine: monitor blood sugar, check HgA1C, continue sliding scale insulin Neurologic: PRN Ativan, keep patient comfortable Affect: PRN ativan Prophylaxis: Protonix, Heparin Notes Reviewed: cardio Discussed with: nurses, consultants, family independence case managerseaport planning manager - Objective Last 24 Hour Vital Signs Date Time Temp Pulse Resp B/P (MAP) Pulse Ox O2 Delivery O2 Flow Rate FiO2 09/07/17 10:47 93 23 30 09/07/17 09:06 93 23 30 09/07/17 08:00 30 09/07/17 08:00 97.7 93 23 126/78 100 Mechanical Ventilator 30 97.7 09/07/17 08:00 94 09/07/17 06:50 93 23 30 09/07/17 05:15 94 23 30 09/07/17 04:06 92 09/07/17 04:00 30 09/07/17 04:00 97.3 93 23 132/73 99 Mechanical Ventilator 30 97.3 09/07/17 03:39 93 21 30 09/07/17 02:01 106 22 30 09/07/17 00:00 30 09/07/17 00:00 97.2 99 25 149/81 100 Mechanical Ventilator 30 97.2 09/07/17 00:00 97 24 30 09/06/17 21:45 99 09/06/17 21:31 86 25 30 09/06/17 20:00 30 09/06/17 20:00 97.9 103 26 141/85 100 Mechanical Ventilator 30 97.9 09/06/17 19:57 106 25 30 09/06/17 16:51 97 25 30 09/06/17 16:12 30 09/06/17 16:00 93 09/06/17 16:00 98.4 94 24 124/79 100 Mechanical Ventilator 30 98.4 09/06/17 15:11 95 23 30 09/06/17 12:42 94 24 30 09/06/17 12:00 94 09/06/17 12:00 98.4 95 24 117/76 100 Mechanical Ventilator 30 98.4 09/06/17 12:00 30 09/06/17 11:06 108 20 30 Status: awake HEENT: atraumatic Lungs: clear Heart: HR/BP stable, regular Abdomen: soft, active bowel sounds, feeding tube Extremities: no C/C/E Decubiti: location Accucheck: 131 Critical Care - Subjective ROS Limited/Unobtainable: Yes Condition: critical EKG Rhythm: Sinus Rhythm FI02: 30 Vent Support Breath Rate: 18 Vent Support Mode: AC Vent Tidal Volume: 550 Sputum Amount: Moderate PEEP: 5.0 PIP: 26 Tube Feeding Amount: 55 I&O: Intake and Output 09/06/17 09/07/17 19:00 07:00 Intake Total 920 ml 760 ml Output Total 500 ml 680 ml Balance 420 ml 80 ml Free Water 250 ml 100 ml IV Total 220 ml Tube Feeding 550 ml 440 ml Other 120 ml Output Urine Total 500 ml 550 ml Stool Total 130 ml # Bowel Movements 100 CXR: no change Labs: Laboratory Tests Test 09/07/17 04:30 White Blood Count 8.1 K/UL (4.8-10.8) Red Blood Count 3.26 M/UL (4.70-6.10) L Hemoglobin 9.2 G/DL (14.2-18.0) L Hematocrit 28.4 % (42.0-52.0) L Mean Corpuscular Volume 87 FL (80-99) Mean Corpuscular Hemoglobin 28.3 PG (27.0-31.0) Mean Corpuscular Hemoglobin Concent 32.6 G/DL (32.0-36.0) Red Cell Distribution Width 15.7 % (11.6-14.8) H Platelet Count 359 K/UL (150-450) Mean Platelet Volume 7.0 FL (6.5-10.1) Neutrophils (%) (Auto) 71.1 % (45.0-75.0) Lymphocytes (%) (Auto) 14.5 % (20.0-45.0) L Monocytes (%) (Auto) 8.7 % (1.0-10.0) Eosinophils (%) (Auto) 5.0 % (0.0-3.0) H Basophils (%) (Auto) 0.7 % (0.0-2.0) Sodium Level 138 MMOL/L (136-145) Potassium Level 4.0 MMOL/L (3.5-5.1) Chloride Level 108 MMOL/L (98-107) H Carbon Dioxide Level 20 MMOL/L (21-32) L Anion Gap 10 mmol/L (5-15) Blood Urea Nitrogen 42 mg/dL (7-18) H Creatinine 1.1 MG/DL (0.55-1.30) Estimat Glomerular Filtration Rate > 60 mL/min (>60) Glucose Level 116 MG/DL (74-106) H Calcium Level 9.1 MG/DL (8.5-10.1) Total Bilirubin 0.3 MG/DL (0.2-1.0) Aspartate Amino Transf (AST/SGOT) 72 U/L (15-37) H Alanine Aminotransferase (ALT/SGPT) 33 U/L (12-78) Alkaline Phosphatase 285 U/L (46-116) H Pro-B-Type Natriuretic Peptide 562 pg/mL (0-125) H Total Protein 8.4 G/DL (6.4-8.2) H Albumin 2.0 G/DL (3.4-5.0) L Globulin 6.4 g/dL Albumin/Globulin Ratio 0.3 (1.0-2.7) L Ernestina James MD Sep 07, 2017 11:01
[2017-09-07 12:00] VITALS: BP 126/84
--- NOTE | 2017-09-07 12:13 | Diagnostic Imaging Report ---
Indication: Dyspnea Comparison: September 05, 2017 A single view chest radiograph was obtained. Findings: Patchy streaky densities at the left lung base noted likely atelectasis. There is some volume loss with elevation of the left hemidiaphragm noted. Left PICC line and tracheostomy are again noted. Heart size is stable and normal. IMPRESSION: No significant change from 2 days earlier
--- NOTE | 2017-09-07 14:07 | Infectious Diseases Prog Note ---
Assessment/Plan Assessment/Plan ASSESSMENT: The patient is a 62-year-old male with: Fever, SP leukocytosis SP -09/01 u/a wbc tntc; ucx Diann ( colonizer at this time as WBC improving ) -08/14 Cdiff neg -HIDA scan neg - CXR 09/02light interval increase in interstitial opacification/edema compared to the prior exam. -CXR 08/17: Interval expansion of the previously atelectatic right lung. Considerable infiltrate versus edema throughout the right lung. Increasing left basilar atelectasis and possibly infiltrate -CXR 08/16: Complete opacification right hemithorax. Probably due to atelectasis related to endobronchial occlusion at the level of the right mainstem bronchus. There may also be a significant component of pleural effusion. Diarrhea- Cdiff: neg PICC line infection with CoNS, -Bcx 08/21 Neg -s/p removal PICC 08/18; s/p new pICC line 08/25 -Bcx 08/15 1/ + PICC line, peripheral NTD; Bcx 08/18 : 2/4 CoNS; cath tip cx CoNS -echo 07/31: limited views, no obvious vegetations or significant valve abnormalities Recent Blood Cx: CoNS probable line infection (PICC from out side facility was removed on and replaced on 08/03 ) Complete opacification R lung- , much improved now, possibly due to mucous plug ; recurrent -CXR 08/22: Interim near complete opacification of the right lung, probably due to near complete right lung atelectasis, given evidence of bronchial occlusion and mediastinal shift indicating volume loss. Component of pleural fluid also possible,however.New or increased moderate left pleural effusion ? ventilatory-associated pneumonia Scx: MDR PSA (S gentamicin, Colistin), repeat sp cx 08/13 normal pipo- Low suspicion overall for TB CCT: Extensive interstitial opacities throughout the right lung as well as groundglass opacities. Large differential, suspect on the basis of pulmonary edema, particularly given evidence of edema elsewhere, but possibility of infection, including possible tuberculosis, should also be considered. Right lower lobe consolidation, may reflect pneumonia (chest x-ray:Considerably worse pleural and parenchymal disease on the right. Slightly worse in pleural and parenchymal disease on the left, over 3 days ) Influenza: Neg -AFB sp cx smear neg x3, cx p, MTB PCR neg -Blatomyces ab neg, CrAg neg, Histoplasma ID neg, CF not done due to anticomplement activity; Cocci ab pending -HIV ag/ab neg -TB spot + (suspect latent rather than active, final AFB cx pending), MTB PCR neg Multiple decubitus of lower extremity. Left heel unstageable decubitus (no purulent discharge.) probable osteo per bone scan -no wound cx obtained NM : flow, blood pool, static activity involving the calcaneal tuberosity on the left. 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 Evidence of anasarca, with generalized edema of the subcutaneous fat,retroperitoneal and mesenteric fat, trace ascites, small left pleural effusion. Possible wall thickening of proximal and mid transverse and ascending colon. Could represent colitis although possibly artifactual due to under distention. Very questionable wall thickening of the duodenum and proximal jejunum, if real could indicate duodenitis/enteritis and/or peptic ulcer disease. Gas bubbles in the anterior aspect of the right rectus abdominis muscle belly. Cholelithiasis. Diffusely somewhat prominent pancreas, probably baseline for this patient, but the possibility of acute pancreatitis should be considered. Scattered punctate microcalcifications may represent sequelae of chronic calcifying pancreatitis, versus arterial calcifications. Ectasia of the pancreatic duct could also indicate chronic calcified pancreatitis no definite pancreatic head mass, although evaluation for such is limited in the absence of IVcontrast US Borderline gallbladder wall thickening, more likely artifact due to underdistention than real. Diarrhea CT: ? wall thickening of proximal and mid transverse and ascending colon.duodenum and proximal jejunum, and probable acute pancreatitis should be considered. ? Clostridium difficile: Neg Pl effusion: exudate , Pr : 4.4 , cell count : P ro empyema 08/12 SP ultrasound-guided thoracentesis, of 400 cc BETSY Diabetes. Anemia. GERD. Hypertension. History of TBI. Seizure disorder PLAN: - Meropenem and IV Vancomycin d# 6 /7 09/03 SP PO Vancomycin 125mg qid Cdiff: neg 09/02 SP V Daptomycin and Ceftriaxone # and Flagyl #14 08/19 SP INH colistin for MDR PsA PNA 08/18 SP IV Vancomycin #4 08/16 SP Micafungin #5 08/15 SP Meropenem #10 3/ SP IV Colistin #9 3/4 SP vancomycin d# 9 and Zosyn and Gent d# 4 3/ SP cefepime day # 5 PICC line care Monitor chest x-ray f/u cocci ab, fungitell, AFB final cultures Monitor CBC Subjective Constitutional: Denies: no symptoms, fever, chills, fatigue, anorexia, drenching sweats, other Allergies: Coded Allergies: No Known Allergies (Unverified , 07/31/17) Subjective no acute event fd afebrile Objective Vital Signs Last 24 Hour Vital Signs Date Time Temp Pulse Resp B/P (MAP) Pulse Ox O2 Delivery O2 Flow Rate FiO2 09/07/17 12:49 93 23 30 09/07/17 12:00 98.2 96 23 126/84 100 Mechanical Ventilator 30 98.2 09/07/17 12:00 30 09/07/17 12:00 93 09/07/17 10:47 93 23 30 09/07/17 09:06 93 23 30 09/07/17 08:00 30 09/07/17 08:00 97.7 93 23 126/78 100 Mechanical Ventilator 30 97.7 09/07/17 08:00 94 09/07/17 06:50 93 23 30 09/07/17 05:15 94 23 30 09/07/17 04:06 92 09/07/17 04:00 30 09/07/17 04:00 97.3 93 23 132/73 99 Mechanical Ventilator 30 97.3 09/07/17 03:39 93 21 30 09/07/17 02:01 106 22 30 09/07/17 00:00 30 09/07/17 00:00 97.2 99 25 149/81 100 Mechanical Ventilator 30 97.2 09/07/17 00:00 97 24 30 09/06/17 21:45 99 09/06/17 21:31 86 25 30 09/06/17 20:00 30 09/06/17 20:00 97.9 103 26 141/85 100 Mechanical Ventilator 30 97.9 09/06/17 19:57 106 25 30 09/06/17 16:51 97 25 30 09/06/17 16:12 30 09/06/17 16:00 93 09/06/17 16:00 98.4 94 24 124/79 100 Mechanical Ventilator 30 98.4 09/06/17 15:11 95 23 30 Height (Feet): 6 Height (Inches): 0.00 Weight (Pounds): 132 HEENT: anicteric Respiratory/Chest: no respiratory distress Cardiovascular: regular rhythm Abdomen: no organomegaly Laboratory Tests Test 09/07/17 04:30 White Blood Count 8.1 K/UL (4.8-10.8) Red Blood Count 3.26 M/UL (4.70-6.10) L Hemoglobin 9.2 G/DL (14.2-18.0) L Hematocrit 28.4 % (42.0-52.0) L Mean Corpuscular Volume 87 FL (80-99) Mean Corpuscular Hemoglobin 28.3 PG (27.0-31.0) Mean Corpuscular Hemoglobin Concent 32.6 G/DL (32.0-36.0) Red Cell Distribution Width 15.7 % (11.6-14.8) H Platelet Count 359 K/UL (150-450) Mean Platelet Volume 7.0 FL (6.5-10.1) Neutrophils (%) (Auto) 71.1 % (45.0-75.0) Lymphocytes (%) (Auto) 14.5 % (20.0-45.0) L Monocytes (%) (Auto) 8.7 % (1.0-10.0) Eosinophils (%) (Auto) 5.0 % (0.0-3.0) H Basophils (%) (Auto) 0.7 % (0.0-2.0) Sodium Level 138 MMOL/L (136-145) Potassium Level 4.0 MMOL/L (3.5-5.1) Chloride Level 108 MMOL/L (98-107) H Carbon Dioxide Level 20 MMOL/L (21-32) L Anion Gap 10 mmol/L (5-15) Blood Urea Nitrogen 42 mg/dL (7-18) H Creatinine 1.1 MG/DL (0.55-1.30) Estimat Glomerular Filtration Rate > 60 mL/min (>60) Glucose Level 116 MG/DL (74-106) H Calcium Level 9.1 MG/DL (8.5-10.1) Total Bilirubin 0.3 MG/DL (0.2-1.0) Aspartate Amino Transf (AST/SGOT) 72 U/L (15-37) H Alanine Aminotransferase (ALT/SGPT) 33 U/L (12-78) Alkaline Phosphatase 285 U/L (46-116) H Pro-B-Type Natriuretic Peptide 562 pg/mL (0-125) H Total Protein 8.4 G/DL (6.4-8.2) H Albumin 2.0 G/DL (3.4-5.0) L Globulin 6.4 g/dL Albumin/Globulin Ratio 0.3 (1.0-2.7) L Current Medications Medications (Trade) Dose Ordered Sig/Serena Route PRN Reason Start Time Stop Time Status Last Admin Dose Admin Acetaminophen (Tylenol) 650 mg Q4H PRN GT Mild Pain/Temp > 100.5 08/11/17 20:45 09/10/17 20:44 09/02/17 20:48 Amiodarone HCl (Cordarone) 200 mg EVERY 12 HOURS GT 08/28/17 09:00 09/27/17 09:00 09/07/17 08:37 Chlorhexidine Gluconate (Ngoc-Hex 2%) 1 applic DAILY@2000 TOPIC 08/24/17 20:00 09/23/17 19:59 09/06/17 20:59 Dextrose (Dextrose 50%) 25 ml STAT PRN IV HYPOGLYCEMIA 09/07/17 08:45 10/07/17 08:44 Dextrose (Dextrose 50%) 50 ml STAT PRN IV Hypoglycemia 09/07/17 08:45 09/29/17 09:29 Heparin Sodium (Porcine) (Heparin 5000 units/ml) 5,000 units EVERY 12 HOURS SUBQ 08/28/17 09:00 09/27/17 09:00 09/07/17 08:38 Levetiracetam (Keppra) 250 mg BID GT 08/28/17 09:00 09/27/17 09:00 09/07/17 08:37 Meropenem 1 gm/ Dextrose 55 ml @ 110 mls/hr Q8HR IVPB 09/02/17 16:00 09/08/17 23:59 09/07/17 05:56 Morphine Sulfate (Morphine 10mg/ 5ml Oral Soln) 10 mg Q4H PRN ORAL diarrhea 09/07/17 11:00 09/14/17 10:59 UNV Ondansetron HCl (Zofran) 4 mg Q6H PRN IVP Nausea & Vomiting 08/28/17 08:30 09/27/17 08:29 Pantoprazole (Protonix) 40 mg DAILY IV 08/01/17 09:00 09/30/17 08:59 09/07/17 08:37 Phenytoin (Dilantin) 100 mg Q12HR GT 08/09/17 16:00 09/08/17 15:59 09/07/17 08:37 Polyethylene Glycol (Miralax) 17 gm DAILYPRN PRN ORAL Constipation 08/28/17 08:00 09/27/17 08:00 Vancomycin HCl (Vanco rx to dose) 1 ea DAILY PRN MISC Per rx protocol 09/02/17 13:30 10/02/17 13:29 Vancomycin/Sodium Chloride 250 ml @ 166.667 mls/hr Q24H IVPB 09/03/17 17:00 09/08/17 16:59 09/06/17 16:48 Norman Chen MD Sep 07, 2017 14:07
[2017-09-07 16:00] VITALS: BP 127/82
[2017-09-07] MEDS: Vancomycin 750mg/NS 250ml IVPB SCH (17:26)
[2017-09-07 20:00] VITALS: BP 120/78
[2017-09-07] MEDS: Dyna-Hex 2% Top Sol 2oz TOPIC SCH (20:07)
[2017-09-07] MEDS ORDERED: Tubing IV Secondary IV ONE (21:30)
[2017-09-07] MEDS ORDERED: NS 275ml ONE (21:30)
[2017-09-07] MEDS ORDERED: Sterile Water Irrig 1000ml IRRIG ONE (21:30)
--- NOTE | 2017-09-07 23:09 | General Progress Note ---
Assessment/Plan Assessment/Plan #. Anemia of chronic disease. Monitor closely. --> ESR 134. Hemoglobin has been above goal. --> Anemia workup reviewed. --> Iron 37, TIBC 99, Vit B12 535, Folate 11.4 --> Blood transfusion not required unless symptomatic or hgb below 7. #. Coagulopathy. Likely due to decreased vitamin K intake. Imaging reviewed. --> Prominent pancreas, calcification is noted. --> On anticoagulation -- heparin sq #. Leukocytosis, likely secondary to infection. --> On broad-spectrum antibiotics. --> Wbc count downtrending and improving. --> Wbc levels within normal limits yesterday #. Dysphagia, status post percutaneous endoscopic gastrostomy tube. #. Cholelithiasis is noted on ultrasound. Borderline diabetic --> HIDA scan is negative. #. Transaminitis has since improved, potentially secondary to medications v other causes #. Wound care. #. Ventilator-associated pneumonia. --> On vent and abx Subjective Date patient seen: Sep 06, 2017 Constitutional: Denies: no symptoms, chills, diaphoresis, fever, malaise, weakness, other HEENT: Denies: no symptoms, eye pain, blurred vision, tearing, double vision, ear pain, ear discharge, nose pain, nose congestion, throat pain, throat swelling, mouth pain, mouth swelling, other Cardiovascular: Denies: no symptoms, chest pain, edema, irregular heart rate, lightheadedness, palpitations, syncope, other Respiratory: Denies: no symptoms, cough, orthopnea, shortness of breath, SOB with excertion, SOB at rest, sputum, stridor, wheezing, other Gastrointestinal/Abdominal: Denies: no symptoms, abdomen distended, abdominal pain, black stools, tarry stools, blood in stool, constipated, diarrhea, difficulty swallowing, nausea, poor appetite, poor fluid intake, rectal bleeding , vomiting, other Genitourinary: Denies: no symptoms, burning, discharge, frequency, flank pain, hematuria, incontinence, pain, urgency, other Neurologic/Psychiatric: Denies: no symptoms, anxiety, depressed, emotional problems, headache, numbness, paresthesia, pre-existing deficit, seizure, tingling, tremors, weakness, other Hematologic/Lymphatic: Reports: anemia Allergies: Coded Allergies: No Known Allergies (Unverified , 07/31/17) Subjective Poor prognosis. Multiple wounds. On vent. Objective Last 24 Hour Vital Signs Date Time Temp Pulse Resp B/P (MAP) Pulse Ox O2 Delivery O2 Flow Rate FiO2 09/07/17 20:59 95 18 30 09/07/17 18:33 100 20 30 09/07/17 16:43 97 21 30 09/07/17 16:00 96 09/07/17 16:00 98.0 96 19 127/82 100 Mechanical Ventilator 30 98.0 09/07/17 16:00 30 09/07/17 14:47 96 26 30 09/07/17 12:49 93 23 30 09/07/17 12:00 98.2 96 23 126/84 100 Mechanical Ventilator 30 98.2 09/07/17 12:00 30 09/07/17 12:00 93 09/07/17 10:47 93 23 30 09/07/17 09:06 93 23 30 09/07/17 08:00 30 09/07/17 08:00 97.7 93 23 126/78 100 Mechanical Ventilator 30 97.7 09/07/17 08:00 94 09/07/17 06:50 93 23 30 09/07/17 05:15 94 23 30 09/07/17 04:06 92 09/07/17 04:00 30 09/07/17 04:00 97.3 93 23 132/73 99 Mechanical Ventilator 30 97.3 09/07/17 03:39 93 21 30 09/07/17 02:01 106 22 30 09/07/17 00:00 30 09/07/17 00:00 97.2 99 25 149/81 100 Mechanical Ventilator 30 97.2 09/07/17 00:00 97 24 30 Intake and Output 09/06/17 09/07/17 19:00 07:00 Intake Total 920 ml 760 ml Output Total 500 ml 680 ml Balance 420 ml 80 ml Free Water 250 ml 100 ml IV Total 220 ml Tube Feeding 550 ml 440 ml Other 120 ml Output Urine Total 500 ml 550 ml Stool Total 130 ml # Bowel Movements 100 Laboratory Tests 09/07/17 04:30: White Blood Count 8.1, Red Blood Count 3.26L, Hemoglobin 9.2L, Hematocrit 28.4L , Mean Corpuscular Volume 87, Mean Corpuscular Hemoglobin 28.3, Mean Corpuscular Hemoglobin Concent 32.6, Red Cell Distribution Width 15.7H, Platelet Count 359, Mean Platelet Volume 7.0, Neutrophils (%) (Auto) 71.1, Lymphocytes (%) (Auto) 14.5L, Monocytes (%) (Auto) 8.7, Eosinophils (%) (Auto) 5.0H, Basophils (%) (Auto) 0.7, Sodium Level 138, Potassium Level 4.0, Chloride Level 108H, Carbon Dioxide Level 20L, Anion Gap 10, Blood Urea Nitrogen 42H, Creatinine 1.1, Estimat Glomerular Filtration Rate > 60, Glucose Level 116H, Calcium Level 9.1, Total Bilirubin 0.3, Aspartate Amino Transf (AST/SGOT) 72H, Alanine Aminotransferase (ALT/SGPT) 33, Alkaline Phosphatase 285H, Pro-B-Type Natriuretic Peptide 562H, Total Protein 8.4H, Albumin 2.0L, Globulin 6.4, Albumin/Globulin Ratio 0.3L Height (Feet): 6 Height (Inches): 0.00 Weight (Pounds): 132 General Appearance: no apparent distress Respiratory/Chest: decreased breath sounds Abdomen: soft Lópze Vásquez MD Sep 07, 2017 23:09
[2017-09-08] VITALS: BP 119/79
[2017-09-08 04:00] VITALS: BP 127/89
[2017-09-08] MEDS: Meropenem 1 GM in D5W 55 ML IVPB SCH ×3 (05:01→23:33)
[2017-09-08 07:24] LABS: BASOPHILS % (AUTO) 0.4 % (0.0-2.0); EOSINOPHILS % (AUTO) 4.7 % (0.0-3.0); HEMATOCRIT 28.8 % (42.0-52.0); HEMOGLOBIN 9.4 G/DL (14.2-18.0); LYMPHOCYTES % (AUTO) 16.1 % (20.0-45.0); MEAN CORPUSCULAR VOLUME 88 FL (80-99); MONOCYTES % (AUTO) 6.3 % (1.0-10.0); NEUTROPHILS % (AUTO) 72.5 % (45.0-75.0); PLATELET COUNT 379 K/UL (150-450); RED BLOOD COUNT 3.28 M/UL (4.70-6.10); WHITE BLOOD COUNT 10.6 K/UL (4.8-10.8)
[2017-09-08 07:33] LABS: ALANINE AMINOTRANSFERASE 38 U/L (12-78); ALBUMIN 2.2 G/DL (3.4-5.0); ALBUMIN/GLOBULIN RATIO 0.3 (1.0-2.7); ALKALINE PHOSPHATASE 329 U/L (46-116); ANION GAP 10 mmol/L (5-15); ASPARTATE AMINO TRANSFERASE 56 U/L (15-37); BILIRUBIN,TOTAL 0.3 MG/DL (0.2-1.0); BLOOD UREA NITROGEN 40 mg/dL (7-18); CALCIUM 9.3 MG/DL (8.5-10.1); CARBON DIOXIDE 21 MMOL/L (21-32); CHLORIDE 107 MMOL/L (98-107); CREATININE 1.2 MG/DL (0.55-1.30); PHOSPHORUS 3.6 MG/DL (2.5-4.9); POTASSIUM 4.4 MMOL/L (3.5-5.1); SODIUM 137 MMOL/L (136-145)
[2017-09-08 08:00] VITALS: BP 115/78
[2017-09-08] MEDS: Amiodarone 200mg tab GT SCH ×2 (08:46→21:15)
[2017-09-08] MEDS: levETIRAcetam 500mg/5ml Liquid GT SCH ×2 (08:47→18:36)
[2017-09-08] MEDS: Pantoprazole Inj IV SCH (08:47)
[2017-09-08] MEDS: Phenytoin Susp 100mg/4ml GT SCH (08:47)
[2017-09-08] MEDS: Heparin 5000 units/ml inj SUBQ SCH ×2 (08:48→21:18)
--- NOTE | 2017-09-08 11:11 | Infectious Diseases Prog Note ---
Assessment/Plan Assessment/Plan ASSESSMENT: The patient is a 62-year-old male with: Fever, SP leukocytosis SP -09/01 u/a wbc tntc; ucx Diann ( colonizer at this time as WBC improving ) -08/14 Cdiff neg -HIDA scan neg - 09/07 CXR: Patchy streaky densities at the left lung base noted likely atelectasis. - CXR 09/02light interval increase in interstitial opacification/edema compared to the prior exam. -CXR 08/17: Interval expansion of the previously atelectatic right lung. Considerable infiltrate versus edema throughout the right lung. Increasing left basilar atelectasis and possibly infiltrate -CXR 08/16: Complete opacification right hemithorax. Probably due to atelectasis related to endobronchial occlusion at the level of the right mainstem bronchus. There may also be a significant component of pleural effusion. Diarrhea- Cdiff: neg PICC line infection with CoNS, -Bcx 08/21 Neg -s/p removal PICC 08/18; s/p new pICC line 08/25 -Bcx 08/15 06/07 + PICC line, peripheral NTD; Bcx 08/18 : 2/4 CoNS; cath tip cx CoNS -echo 07/31: limited views, no obvious vegetations or significant valve abnormalities Recent Blood Cx: CoNS probable line infection (PICC from out side facility was removed on and replaced on 08/03 ) Complete opacification R lung- , much improved now, possibly due to mucous plug ; recurrent -CXR 08/22: Interim near complete opacification of the right lung, probably due to near complete right lung atelectasis, given evidence of bronchial occlusion and mediastinal shift indicating volume loss. Component of pleural fluid also possible,however.New or increased moderate left pleural effusion ? ventilatory-associated pneumonia Scx: MDR PSA (S gentamicin, Colistin), repeat sp cx 08/13 normal pipo- Low suspicion overall for TB CCT: Extensive interstitial opacities throughout the right lung as well as groundglass opacities. Large differential, suspect on the basis of pulmonary edema, particularly given evidence of edema elsewhere, but possibility of infection, including possible tuberculosis, should also be considered. Right lower lobe consolidation, may reflect pneumonia (chest x-ray:Considerably worse pleural and parenchymal disease on the right. Slightly worse in pleural and parenchymal disease on the left, over 3 days ) Influenza: Neg -AFB sp cx smear neg x3, cx p, MTB PCR neg -Blatomyces ab neg, CrAg neg, Histoplasma ID neg, CF not done due to anticomplement activity; Cocci ab pending -HIV ag/ab neg -TB spot + (suspect latent rather than active, final AFB cx pending), MTB PCR neg Multiple decubitus of lower extremity. Left heel unstageable decubitus (no purulent discharge.) probable osteo per bone scan -no wound cx obtained NM : flow, blood pool, static activity involving the calcaneal tuberosity on the left. 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 Evidence of anasarca, with generalized edema of the subcutaneous fat,retroperitoneal and mesenteric fat, trace ascites, small left pleural effusion. Possible wall thickening of proximal and mid transverse and ascending colon. Could represent colitis although possibly artifactual due to under distention. Very questionable wall thickening of the duodenum and proximal jejunum, if real could indicate duodenitis/enteritis and/or peptic ulcer disease. Gas bubbles in the anterior aspect of the right rectus abdominis muscle belly. Cholelithiasis. Diffusely somewhat prominent pancreas, probably baseline for this patient, but the possibility of acute pancreatitis should be considered. Scattered punctate microcalcifications may represent sequelae of chronic calcifying pancreatitis, versus arterial calcifications. Ectasia of the pancreatic duct could also indicate chronic calcified pancreatitis no definite pancreatic head mass, although evaluation for such is limited in the absence of IVcontrast US Borderline gallbladder wall thickening, more likely artifact due to underdistention than real. Diarrhea CT: ? wall thickening of proximal and mid transverse and ascending colon.duodenum and proximal jejunum, and probable acute pancreatitis should be considered. ? Clostridium difficile: Neg Pl effusion: exudate , Pr : 4.4 , cell count : P ro empyema 08/12 SP ultrasound-guided thoracentesis, of 400 cc BETSY Diabetes. Anemia. GERD. Hypertension. History of TBI. Seizure disorder PLAN: - DC Meropenem and IV Vancomycin d# 09/03 SP PO Vancomycin 125mg qid Cdiff: neg 09/02 SP V Daptomycin and Ceftriaxone #26/42 and Flagyl #14 08/19 SP INH colistin for MDR PsA PNA 08/18 SP IV Vancomycin #4 08/16 SP Micafungin #5 08/15 SP Meropenem #10 3 SP IV Colistin #9 3/ SP vancomycin d# 9 and Zosyn and Gent d# 4 3/ SP cefepime day # 5 PICC line care Monitor chest x-ray f/u cocci ab, fungitell, AFB final cultures Monitor CBC Subjective Constitutional: Denies: no symptoms, fever, chills, fatigue, anorexia, drenching sweats, other Allergies: Coded Allergies: No Known Allergies (Unverified , 07/31/17) Subjective afebrile Objective Vital Signs Last 24 Hour Vital Signs Date Time Temp Pulse Resp B/P (MAP) Pulse Ox O2 Delivery O2 Flow Rate FiO2 09/08/17 08:57 104 22 30 09/08/17 08:00 30 09/08/17 08:00 103 09/08/17 08:00 99.3 102 20 115/78 100 Mechanical Ventilator 30 99.3 09/08/17 07:01 101 22 30 09/08/17 04:43 96 18 30 09/08/17 04:00 98.9 100 18 127/89 100 Mechanical Ventilator 30 98.9 09/08/17 04:00 98 09/08/17 04:00 30 09/08/17 02:32 98 23 30 09/08/17 00:59 96 24 30 09/08/17 00:00 94 09/08/17 00:00 98.9 94 19 119/79 100 Mechanical Ventilator 30 98.9 09/08/17 00:00 30 09/07/17 23:07 98 22 30 09/07/17 21:00 30 09/07/17 20:59 95 18 30 09/07/17 20:00 95 09/07/17 20:00 99.1 95 18 120/78 100 Mechanical Ventilator 30 99.1 09/07/17 18:33 100 20 30 09/07/17 16:43 97 21 30 09/07/17 16:00 96 09/07/17 16:00 98.0 96 19 127/82 100 Mechanical Ventilator 30 98.0 09/07/17 16:00 30 09/07/17 14:47 96 26 30 09/07/17 12:49 93 23 30 09/07/17 12:00 98.2 96 23 126/84 100 Mechanical Ventilator 30 98.2 09/07/17 12:00 30 09/07/17 12:00 93 Height (Feet): 6 Height (Inches): 0.00 Weight (Pounds): 128 HEENT: mucous membranes moist Respiratory/Chest: normal breath sounds Cardiovascular: normal rate Abdomen: normal bowel sounds Laboratory Tests Test 09/08/17 04:00 09/08/17 05:40 White Blood Count 10.6 K/UL (4.8-10.8) Red Blood Count 3.28 M/UL (4.70-6.10) L Hemoglobin 9.4 G/DL (14.2-18.0) L Hematocrit 28.8 % (42.0-52.0) L Mean Corpuscular Volume 88 FL (80-99) Mean Corpuscular Hemoglobin 28.7 PG (27.0-31.0) Mean Corpuscular Hemoglobin Concent 32.7 G/DL (32.0-36.0) Red Cell Distribution Width 16.0 % (11.6-14.8) H Platelet Count 379 K/UL (150-450) Mean Platelet Volume 6.5 FL (6.5-10.1) Neutrophils (%) (Auto) 72.5 % (45.0-75.0) Lymphocytes (%) (Auto) 16.1 % (20.0-45.0) L Monocytes (%) (Auto) 6.3 % (1.0-10.0) Eosinophils (%) (Auto) 4.7 % (0.0-3.0) H Basophils (%) (Auto) 0.4 % (0.0-2.0) Sodium Level 137 MMOL/L (136-145) Potassium Level 4.4 MMOL/L (3.5-5.1) Chloride Level 107 MMOL/L (98-107) Carbon Dioxide Level 21 MMOL/L (21-32) Anion Gap 10 mmol/L (5-15) Blood Urea Nitrogen 40 mg/dL (7-18) H Creatinine 1.2 MG/DL (0.55-1.30) Estimat Glomerular Filtration Rate > 60 mL/min (>60) Glucose Level 110 MG/DL (74-106) H Calcium Level 9.3 MG/DL (8.5-10.1) Phosphorus Level 3.6 MG/DL (2.5-4.9) Magnesium Level 1.8 MG/DL (1.8-2.4) Total Bilirubin 0.3 MG/DL (0.2-1.0) Aspartate Amino Transf (AST/SGOT) 56 U/L (15-37) H Alanine Aminotransferase (ALT/SGPT) 38 U/L (12-78) Alkaline Phosphatase 329 U/L (46-116) H Total Protein 9.0 G/DL (6.4-8.2) H Albumin 2.2 G/DL (3.4-5.0) L Globulin 6.8 g/dL Albumin/Globulin Ratio 0.3 (1.0-2.7) L Current Medications Medications (Trade) Dose Ordered Sig/Serena Route PRN Reason Start Time Stop Time Status Last Admin Dose Admin Acetaminophen (Tylenol) 650 mg Q4H PRN GT Mild Pain/Temp > 100.5 08/11/17 20:45 09/10/17 20:44 09/02/17 20:48 Amiodarone HCl (Cordarone) 200 mg EVERY 12 HOURS GT 08/28/17 09:00 09/27/17 09:00 09/08/17 08:46 Chlorhexidine Gluconate (Ngoc-Hex 2%) 1 applic DAILY@2000 TOPIC 08/24/17 20:00 09/23/17 19:59 09/07/17 20:07 Dextrose (Dextrose 50%) 25 ml STAT PRN IV HYPOGLYCEMIA 09/07/17 08:45 10/07/17 08:44 Dextrose (Dextrose 50%) 50 ml STAT PRN IV Hypoglycemia 09/07/17 08:45 09/29/17 09:29 Heparin Sodium (Porcine) (Heparin 5000 units/ml) 5,000 units EVERY 12 HOURS SUBQ 08/28/17 09:00 09/27/17 09:00 09/08/17 08:48 Levetiracetam (Keppra) 250 mg BID GT 08/28/17 09:00 09/27/17 09:00 09/08/17 08:47 Meropenem 1 gm/ Dextrose 55 ml @ 110 mls/hr Q8HR IVPB 09/02/17 16:00 09/08/17 23:59 09/08/17 05:01 Morphine Sulfate (Morphine 5mg/ 2.5ml Oral Soln) 5 mg TID PRN ORAL diarrhea 09/08/17 12:00 10/08/17 11:59 Ondansetron HCl (Zofran) 4 mg Q6H PRN IVP Nausea & Vomiting 08/28/17 08:30 09/27/17 08:29 Pantoprazole (Protonix) 40 mg DAILY IV 08/01/17 09:00 09/30/17 08:59 09/08/17 08:47 Phenytoin (Dilantin) 100 mg Q12HR GT 08/09/17 16:00 09/08/17 15:59 09/08/17 08:47 Polyethylene Glycol (Miralax) 17 gm DAILYPRN PRN ORAL Constipation 08/28/17 08:00 09/27/17 08:00 Vancomycin HCl (Vanco rx to dose) 1 ea DAILY PRN MISC Per rx protocol 09/02/17 13:30 10/02/17 13:29 Vancomycin/Sodium Chloride 250 ml @ 166.667 mls/hr Q24H IVPB 09/03/17 17:00 09/08/17 16:59 09/07/17 17:26 Norman Chen MD Sep 08, 2017 11:11
[2017-09-08 12:00] VITALS: BP 112/73
[2017-09-08] MEDS ORDERED: Morphine 5mg/2.5ml Oral Soln ORAL PRN (12:00)
--- NOTE | 2017-09-08 12:19 | Pulmonolgy Critical Care Note ---
Critical Care - Asmt/Plan Problems: (1) Sepsis (2) Chronic respiratory failure (3) UTI (urinary tract infection) (4) Feeding by G-tube (5) Pressure ulcer Assessment & Plan: still large amount of diarrhea Respiratory: monitor respiratory rate, adjust FIO2 Cardiac: continue to monitor HR/BP Renal: F/U I&O, keep IV fluid Infectious Disease: continue antibiotics Gastrointestinal: hold feedings Endocrine: check TSH Hematologic: monitor H/H Neurologic: PRN Morphine Prophylaxis: Protonix Disposition: keep in ICU Critical Care - Objective Last 24 Hour Vital Signs Date Time Temp Pulse Resp B/P (MAP) Pulse Ox O2 Delivery O2 Flow Rate FiO2 09/08/17 11:48 105 09/08/17 11:12 104 22 30 09/08/17 08:57 104 22 30 09/08/17 08:00 30 09/08/17 08:00 103 09/08/17 08:00 99.3 102 20 115/78 100 Mechanical Ventilator 30 99.3 09/08/17 07:01 101 22 30 09/08/17 04:43 96 18 30 09/08/17 04:00 98.9 100 18 127/89 100 Mechanical Ventilator 30 98.9 09/08/17 04:00 98 09/08/17 04:00 30 09/08/17 02:32 98 23 30 09/08/17 00:59 96 24 30 09/08/17 00:00 94 09/08/17 00:00 98.9 94 19 119/79 100 Mechanical Ventilator 30 98.9 09/08/17 00:00 30 09/07/17 23:07 98 22 30 09/07/17 21:00 30 09/07/17 20:59 95 18 30 09/07/17 20:00 95 09/07/17 20:00 99.1 95 18 120/78 100 Mechanical Ventilator 30 99.1 09/07/17 18:33 100 20 30 09/07/17 16:43 97 21 30 09/07/17 16:00 96 09/07/17 16:00 98.0 96 19 127/82 100 Mechanical Ventilator 30 98.0 09/07/17 16:00 30 09/07/17 14:47 96 26 30 09/07/17 12:49 93 23 30 Status: awake Condition: critical HEENT: atraumatic Lungs: chest wall tender Heart: HR/BP stable, regular Abdomen: non-tender, feeding tube Extremities: edema Decubiti: location Accucheck: 131 Critical Care - Subjective ROS Limited/Unobtainable: Yes EKG Rhythm: Sinus Rhythm FI02: 30 Vent Support Breath Rate: 18 Vent Support Mode: AC Vent Tidal Volume: 550 Sputum Amount: Moderate PEEP: 5.0 PIP: 30 Tube Feeding Amount: 0 I&O: Intake and Output 09/07/17 09/08/17 19:00 07:00 Intake Total 860 ml 760 ml Output Total 550 ml 250 ml Balance 310 ml 510 ml Free Water 200 ml 100 ml IV Total 55 ml 220 ml Tube Feeding 605 ml 440 ml Output Urine Total 550 ml 250 ml # Bowel Movements 50 100 Labs: Laboratory Tests Test 09/08/17 04:00 09/08/17 05:40 White Blood Count 10.6 K/UL (4.8-10.8) Red Blood Count 3.28 M/UL (4.70-6.10) L Hemoglobin 9.4 G/DL (14.2-18.0) L Hematocrit 28.8 % (42.0-52.0) L Mean Corpuscular Volume 88 FL (80-99) Mean Corpuscular Hemoglobin 28.7 PG (27.0-31.0) Mean Corpuscular Hemoglobin Concent 32.7 G/DL (32.0-36.0) Red Cell Distribution Width 16.0 % (11.6-14.8) H Platelet Count 379 K/UL (150-450) Mean Platelet Volume 6.5 FL (6.5-10.1) Neutrophils (%) (Auto) 72.5 % (45.0-75.0) Lymphocytes (%) (Auto) 16.1 % (20.0-45.0) L Monocytes (%) (Auto) 6.3 % (1.0-10.0) Eosinophils (%) (Auto) 4.7 % (0.0-3.0) H Basophils (%) (Auto) 0.4 % (0.0-2.0) Sodium Level 137 MMOL/L (136-145) Potassium Level 4.4 MMOL/L (3.5-5.1) Chloride Level 107 MMOL/L (98-107) Carbon Dioxide Level 21 MMOL/L (21-32) Anion Gap 10 mmol/L (5-15) Blood Urea Nitrogen 40 mg/dL (7-18) H Creatinine 1.2 MG/DL (0.55-1.30) Estimat Glomerular Filtration Rate > 60 mL/min (>60) Glucose Level 110 MG/DL (74-106) H Calcium Level 9.3 MG/DL (8.5-10.1) Phosphorus Level 3.6 MG/DL (2.5-4.9) Magnesium Level 1.8 MG/DL (1.8-2.4) Total Bilirubin 0.3 MG/DL (0.2-1.0) Aspartate Amino Transf (AST/SGOT) 56 U/L (15-37) H Alanine Aminotransferase (ALT/SGPT) 38 U/L (12-78) Alkaline Phosphatase 329 U/L (46-116) H Total Protein 9.0 G/DL (6.4-8.2) H Albumin 2.2 G/DL (3.4-5.0) L Globulin 6.8 g/dL Albumin/Globulin Ratio 0.3 (1.0-2.7) L Ernestina James MD Sep 08, 2017 12:19
[2017-09-08] MEDS ORDERED: OPIUM ORAL PRN (13:00)
[2017-09-08] MEDS: OPIUM ORAL SCH ×3 (13:13→21:15)
[2017-09-08 16:00] VITALS: BP 112/74
[2017-09-08 20:00] VITALS: BP 112/74
[2017-09-08] MEDS: Dyna-Hex 2% Top Sol 2oz TOPIC SCH (21:14)
--- NOTE | 2017-09-08 23:58 | General Progress Note ---
Assessment/Plan Assessment/Plan #. Anemia of chronic disease. Monitor closely. --> ESR 134. Hemoglobin has been above goal. --> Anemia workup reviewed. --> Iron 37, TIBC 99, Vit B12 535, Folate 11.4 --> Blood transfusion not required unless symptomatic or hgb below 7. --> Hemoglobin levels have been stable. #. Coagulopathy. Likely due to decreased vitamin K intake. Imaging reviewed. --> Prominent pancreas, calcification is noted. --> On anticoagulation -- heparin sq #. Leukocytosis, likely secondary to infection. --> On broad-spectrum antibiotics. --> Wbc count downtrending and improving. --> Wbc levels within normal limits yesterday #. Dysphagia, status post percutaneous endoscopic gastrostomy tube. #. Cholelithiasis is noted on ultrasound. Borderline diabetic --> HIDA scan is negative. #. Transaminitis has since improved, potentially secondary to medications v other causes #. Wound care. #. Ventilator-associated pneumonia. --> On vent and abx --> Tachycardia. Subjective Date patient seen: Sep 07, 2017 Constitutional: Denies: no symptoms, chills, diaphoresis, fever, malaise, weakness, other HEENT: Denies: no symptoms, eye pain, blurred vision, tearing, double vision, ear pain, ear discharge, nose pain, nose congestion, throat pain, throat swelling, mouth pain, mouth swelling, other Cardiovascular: Denies: no symptoms, chest pain, edema, irregular heart rate, lightheadedness, palpitations, syncope, other Respiratory: Denies: no symptoms, cough, orthopnea, shortness of breath, SOB with excertion, SOB at rest, sputum, stridor, wheezing, other Gastrointestinal/Abdominal: Denies: no symptoms, abdomen distended, abdominal pain, black stools, tarry stools, blood in stool, constipated, diarrhea, difficulty swallowing, nausea, poor appetite, poor fluid intake, rectal bleeding , vomiting, other Genitourinary: Denies: no symptoms, burning, discharge, frequency, flank pain, hematuria, incontinence, pain, urgency, other Neurologic/Psychiatric: Denies: no symptoms, anxiety, depressed, emotional problems, headache, numbness, paresthesia, pre-existing deficit, seizure, tingling, tremors, weakness, other Hematologic/Lymphatic: Reports: anemia Allergies: Coded Allergies: No Known Allergies (Unverified , 07/31/17) Subjective Poor prognosis. Resting in bed. Nonresponsive. Objective Last 24 Hour Vital Signs Date Time Temp Pulse Resp B/P (MAP) Pulse Ox O2 Delivery O2 Flow Rate FiO2 09/08/17 23:13 122 24 30 09/08/17 21:30 118 27 30 09/08/17 20:00 113 09/08/17 20:00 98.6 115 26 112/74 99 Mechanical Ventilator 30 98.6 09/08/17 18:56 115 23 30 09/08/17 16:59 110 24 30 09/08/17 16:00 98.9 112 28 112/74 98 Mechanical Ventilator 30 98.9 09/08/17 16:00 30 09/08/17 16:00 111 09/08/17 14:55 110 23 30 09/08/17 13:03 106 22 30 09/08/17 12:00 30 09/08/17 12:00 99.0 110 19 112/73 96 Mechanical Ventilator 30 99.0 09/08/17 11:48 105 09/08/17 11:12 104 22 30 09/08/17 08:57 104 22 30 09/08/17 08:00 30 09/08/17 08:00 103 09/08/17 08:00 99.3 102 20 115/78 100 Mechanical Ventilator 30 99.3 09/08/17 07:01 101 22 30 09/08/17 04:43 96 18 30 09/08/17 04:00 98.9 100 18 127/89 100 Mechanical Ventilator 30 98.9 09/08/17 04:00 98 09/08/17 04:00 30 09/08/17 02:32 98 23 30 09/08/17 00:59 96 24 30 09/08/17 00:00 94 09/08/17 00:00 98.9 94 19 119/79 100 Mechanical Ventilator 30 98.9 09/08/17 00:00 30 Intake and Output 09/07/17 09/08/17 19:00 07:00 Intake Total 860 ml 760 ml Output Total 550 ml 250 ml Balance 310 ml 510 ml Free Water 200 ml 100 ml IV Total 55 ml 220 ml Tube Feeding 605 ml 440 ml Output Urine Total 550 ml 250 ml # Bowel Movements 50 100 Laboratory Tests 09/08/17 04:00: White Blood Count 10.6, Red Blood Count 3.28L, Hemoglobin 9.4L, Hematocrit 28.8L , Mean Corpuscular Volume 88, Mean Corpuscular Hemoglobin 28.7, Mean Corpuscular Hemoglobin Concent 32.7, Red Cell Distribution Width 16.0H, Platelet Count 379, Mean Platelet Volume 6.5, Neutrophils (%) (Auto) 72.5, Lymphocytes (%) (Auto) 16.1L, Monocytes (%) (Auto) 6.3, Eosinophils (%) (Auto) 4.7H, Basophils (%) (Auto) 0.4 09/08/17 05:40: Sodium Level 137, Potassium Level 4.4, Chloride Level 107, Carbon Dioxide Level 21, Anion Gap 10, Blood Urea Nitrogen 40H, Creatinine 1.2, Estimat Glomerular Filtration Rate > 60, Glucose Level 110H, Calcium Level 9.3, Phosphorus Level 3.6, Magnesium Level 1.8, Total Bilirubin 0.3, Aspartate Amino Transf (AST/SGOT ) 56H, Alanine Aminotransferase (ALT/SGPT) 38, Alkaline Phosphatase 329H, Total Protein 9.0H, Albumin 2.2L, Globulin 6.8, Albumin/Globulin Ratio 0.3L Height (Feet): 6 Height (Inches): 0.00 Weight (Pounds): 128 General Appearance: lethargic Respiratory/Chest: decreased breath sounds Edema: trace edema López Vásquez MD Sep 08, 2017 23:58
[2017-09-09] VITALS: BP 104/67
[2017-09-09 04:00] VITALS: BP 109/71
[2017-09-09 04:48] LABS: MEAN CORPUSCULAR VOLUME 88 FL (80-99); PLATELET COUNT 376 K/UL (150-450); RED BLOOD COUNT 3.06 M/UL (4.70-6.10); RED CELL DISTRIBUTION WIDTH 16.5 % (11.6-14.8)
[2017-09-09 05:19] LABS: WHITE BLOOD COUNT 22.4 K/UL (4.8-10.8)
[2017-09-09 05:26] LABS: ALANINE AMINOTRANSFERASE 47 U/L (12-78); ALBUMIN 2.1 G/DL (3.4-5.0); ALBUMIN/GLOBULIN RATIO 0.3 (1.0-2.7); ALKALINE PHOSPHATASE 809 U/L (46-116); ANION GAP 10 mmol/L (5-15); ASPARTATE AMINO TRANSFERASE 96 U/L (15-37); BILIRUBIN,TOTAL 0.4 MG/DL (0.2-1.0); BLOOD UREA NITROGEN 41 mg/dL (7-18); CARBON DIOXIDE 20 MMOL/L (21-32); CHLORIDE 108 MMOL/L (98-107); CREATININE 1.4 MG/DL (0.55-1.30); PHOSPHORUS 3.9 MG/DL (2.5-4.9); POTASSIUM 4.6 MMOL/L (3.5-5.1); SODIUM 138 MMOL/L (136-145)
[2017-09-09 08:00] VITALS: BP 97/71
[2017-09-09] MEDS: Pantoprazole Inj IV SCH (09:17)
[2017-09-09] MEDS: levETIRAcetam 500mg/5ml Liquid GT SCH ×2 (09:17→17:37)
[2017-09-09] MEDS: Amiodarone 200mg tab GT SCH ×2 (09:17→21:14)
[2017-09-09] MEDS: Heparin 5000 units/ml inj SUBQ SCH ×2 (09:18→21:28)
[2017-09-09] MEDS: OPIUM ORAL SCH ×3 (09:18→21:15)
[2017-09-09 12:00] VITALS: BP 104/70
[2017-09-09] MEDS ORDERED: MEROPENEM1 GM IV (12:11)
[2017-09-09] MEDS ORDERED: OPIUM TINCTURE ORAL (12:11)
--- NOTE | 2017-09-09 12:13 | Pulmonolgy Critical Care Note ---
Critical Care - Asmt/Plan Problems: (1) Sepsis (2) Chronic respiratory failure (3) UTI (urinary tract infection) (4) Feeding by G-tube (5) Pressure ulcer Assessment & Plan: still large amount of diarrhea Respiratory: monitor respiratory rate, CXR Cardiac: start pressors, continue to monitor HR/BP Renal: F/U I&O, keep IV fluid Infectious Disease: check cultures, continue antibiotics Gastrointestinal: continue feedings/current rate Endocrine: check TSH Neurologic: PRN Ativan Affect: PRN ativan Prophylaxis: Protonix Notes Reviewed: supervisory investigative specialist Discussed with: nurses, consultants, case aideproperty disposal manager - Objective Last 24 Hour Vital Signs Date Time Temp Pulse Resp B/P (MAP) Pulse Ox O2 Delivery O2 Flow Rate FiO2 09/09/17 09:00 109 25 30 09/09/17 08:00 111 09/09/17 08:00 98.2 110 24 97/71 100 Mechanical Ventilator 30 98.2 09/09/17 06:30 112 26 30 09/09/17 05:13 115 27 30 09/09/17 04:00 97.2 117 27 109/71 98 Mechanical Ventilator 30 97.2 09/09/17 04:00 30 09/09/17 04:00 117 09/09/17 03:16 116 26 30 09/09/17 00:53 118 29 30 09/09/17 00:00 30 09/09/17 00:00 98.4 121 26 104/67 98 Mechanical Ventilator 30 98.4 09/09/17 00:00 121 09/08/17 23:13 122 24 30 09/08/17 21:30 118 27 30 09/08/17 20:00 113 09/08/17 20:00 30 09/08/17 20:00 98.6 115 26 112/74 99 Mechanical Ventilator 30 98.6 09/08/17 18:56 115 23 30 09/08/17 16:59 110 24 30 09/08/17 16:00 98.9 112 28 112/74 98 Mechanical Ventilator 30 98.9 09/08/17 16:00 30 09/08/17 16:00 111 09/08/17 14:55 110 23 30 09/08/17 13:03 106 22 30 Status: awake Condition: critical Neck: full ROM Lungs: chest wall tender Heart: HR/BP unstable Abdomen: feeding tube Extremities: no C/C/E Decubiti: location Accucheck: 131 Critical Care - Subjective ROS Limited/Unobtainable: No Condition: critical FI02: 30 Vent Support Breath Rate: 18 Vent Support Mode: AC Vent Tidal Volume: 550 Sputum Amount: Small PEEP: 5.0 PIP: 25 Tube Feeding Amount: 55 I&O: Intake and Output 09/08/17 09/09/17 19:00 07:00 Intake Total 695 ml 860 ml Output Total 600 ml 800 ml Balance 95 ml 60 ml Free Water 100 ml 100 ml IV Total 55 ml 55 ml Tube Feeding 440 ml 605 ml Other 100 ml 100 ml Output Urine Total 500 ml 750 ml Stool Total 100 ml 50 ml # Voids 1 CXR: no change Labs: Laboratory Tests Test 09/09/17 04:00 White Blood Count 22.4 K/UL (4.8-10.8) #*H Red Blood Count 3.06 M/UL (4.70-6.10) L Hemoglobin 9.0 G/DL (14.2-18.0) L Hematocrit 27.0 % (42.0-52.0) L Mean Corpuscular Volume 88 FL (80-99) Mean Corpuscular Hemoglobin 29.3 PG (27.0-31.0) Mean Corpuscular Hemoglobin Concent 33.3 G/DL (32.0-36.0) Red Cell Distribution Width 16.5 % (11.6-14.8) H Platelet Count 376 K/UL (150-450) Mean Platelet Volume 6.8 FL (6.5-10.1) Neutrophils (%) (Auto) % (45.0-75.0) Lymphocytes (%) (Auto) % (20.0-45.0) Monocytes (%) (Auto) % (1.0-10.0) Eosinophils (%) (Auto) % (0.0-3.0) Basophils (%) (Auto) % (0.0-2.0) Differential Total Cells Counted 100 Neutrophils % (Manual) 82 % (45-75) H Lymphocytes % (Manual) 9 % (20-45) L Monocytes % (Manual) 7 % (1-10) Eosinophils % (Manual) 2 % (0-3) Basophils % (Manual) 0 % (0-2) Band Neutrophils 0 % (0-8) Platelet Estimate Adequate Platelet Morphology Normal Hypochromasia 1+ Anisocytosis 1+ Sodium Level 138 MMOL/L (136-145) Potassium Level 4.6 MMOL/L (3.5-5.1) Chloride Level 108 MMOL/L (98-107) H Carbon Dioxide Level 20 MMOL/L (21-32) L Anion Gap 10 mmol/L (5-15) Blood Urea Nitrogen 41 mg/dL (7-18) H Creatinine 1.4 MG/DL (0.55-1.30) H Estimat Glomerular Filtration Rate 51.2 mL/min (>60) Glucose Level 128 MG/DL (74-106) H Calcium Level 9.0 MG/DL (8.5-10.1) Phosphorus Level 3.9 MG/DL (2.5-4.9) Magnesium Level 1.8 MG/DL (1.8-2.4) Total Bilirubin 0.4 MG/DL (0.2-1.0) Aspartate Amino Transf (AST/SGOT) 96 U/L (15-37) H Alanine Aminotransferase (ALT/SGPT) 47 U/L (12-78) Alkaline Phosphatase 809 U/L (46-116) H Total Protein 8.6 G/DL (6.4-8.2) H Albumin 2.1 G/DL (3.4-5.0) L Globulin 6.5 g/dL Albumin/Globulin Ratio 0.3 (1.0-2.7) L Ernestina James MD Sep 09, 2017 12:13
[2017-09-09] MEDS ORDERED: OPIUM ORAL SCH (13:00)
[2017-09-09] MEDS: Meropenem 1 GM in NS 110 ML IVPB SCH ×2 (14:10→21:51)
[2017-09-09 16:00] VITALS: BP 103/69
[2017-09-09] MEDS: Vancomycin 750mg/NS 250ml IVPB SCH (16:10)
[2017-09-09 20:00] VITALS: BP 111/77
[2017-09-09] MEDS: Dyna-Hex 2% Top Sol 2oz TOPIC SCH (20:21)
--- NOTE | 2017-09-09 20:50 | Infectious Diseases Prog Note ---
Assessment/Plan Assessment/Plan ASSESSMENT: The patient is a 62-year-old male with: Fever, SP leukocytosis increased today , ( also Alk increased ro Bill Dis 09/09 ) -09/01 u/a wbc tntc; ucx Diann ( colonizer at this time as WBC improving ) -08/14 Cdiff neg -HIDA scan neg - 09/07 CXR: Patchy streaky densities at the left lung base noted likely atelectasis. - CXR 09/02light interval increase in interstitial opacification/edema compared to the prior exam. -CXR 08/17: Interval expansion of the previously atelectatic right lung. Considerable infiltrate versus edema throughout the right lung. Increasing left basilar atelectasis and possibly infiltrate -CXR 08/16: Complete opacification right hemithorax. Probably due to atelectasis related to endobronchial occlusion at the level of the right mainstem bronchus. There may also be a significant component of pleural effusion. Diarrhea- Cdiff: neg PICC line infection with CoNS, -Bcx 08/21 Neg -s/p removal PICC 08/18; s/p new pICC line 08/25 -Bcx 08/15 06/07 + PICC line, peripheral NTD; Bcx 08/18 : 2/4 CoNS; cath tip cx CoNS -echo 07/31: limited views, no obvious vegetations or significant valve abnormalities Recent Blood Cx: CoNS probable line infection (PICC from out side facility was removed on and replaced on 08/03 ) Complete opacification R lung- , much improved now, possibly due to mucous plug ; recurrent -CXR 08/22: Interim near complete opacification of the right lung, probably due to near complete right lung atelectasis, given evidence of bronchial occlusion and mediastinal shift indicating volume loss. Component of pleural fluid also possible,however.New or increased moderate left pleural effusion ? ventilatory-associated pneumonia Scx: MDR PSA (S gentamicin, Colistin), repeat sp cx 08/13 normal pipo- Low suspicion overall for TB CCT: Extensive interstitial opacities throughout the right lung as well as groundglass opacities. Large differential, suspect on the basis of pulmonary edema, particularly given evidence of edema elsewhere, but possibility of infection, including possible tuberculosis, should also be considered. Right lower lobe consolidation, may reflect pneumonia (chest x-ray:Considerably worse pleural and parenchymal disease on the right. Slightly worse in pleural and parenchymal disease on the left, over 3 days ) Influenza: Neg -AFB sp cx smear neg x3, cx p, MTB PCR neg -Blatomyces ab neg, CrAg neg, Histoplasma ID neg, CF not done due to anticomplement activity; Cocci ab pending -HIV ag/ab neg -TB spot + (suspect latent rather than active, final AFB cx pending), MTB PCR neg Multiple decubitus of lower extremity. Left heel unstageable decubitus (no purulent discharge.) probable osteo per bone scan -no wound cx obtained NM : flow, blood pool, static activity involving the calcaneal tuberosity on the left. 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 Evidence of anasarca, with generalized edema of the subcutaneous fat,retroperitoneal and mesenteric fat, trace ascites, small left pleural effusion. Possible wall thickening of proximal and mid transverse and ascending colon. Could represent colitis although possibly artifactual due to under distention. Very questionable wall thickening of the duodenum and proximal jejunum, if real could indicate duodenitis/enteritis and/or peptic ulcer disease. Gas bubbles in the anterior aspect of the right rectus abdominis muscle belly. Cholelithiasis. Diffusely somewhat prominent pancreas, probably baseline for this patient, but the possibility of acute pancreatitis should be considered. Scattered punctate microcalcifications may represent sequelae of chronic calcifying pancreatitis, versus arterial calcifications. Ectasia of the pancreatic duct could also indicate chronic calcified pancreatitis no definite pancreatic head mass, although evaluation for such is limited in the absence of IVcontrast US Borderline gallbladder wall thickening, more likely artifact due to underdistention than real. Diarrhea CT: ? wall thickening of proximal and mid transverse and ascending colon.duodenum and proximal jejunum, and probable acute pancreatitis should be considered. ? Clostridium difficile: Neg Pl effusion: exudate , Pr : 4.4 , cell count : P ro empyema 08/12 SP ultrasound-guided thoracentesis, of 400 cc BETSY Diabetes. Anemia. GERD. Hypertension. History of TBI. Seizure disorder PLAN: - restart Merrem and IV Vanco d# / 10-14 09/03 SP PO Vancomycin 125mg qid Cdiff: neg 09/02 SP V Daptomycin and Ceftriaxone #26/ and Flagyl #14 08/19 SP INH colistin for MDR PsA PNA 08/18 SP IV Vancomycin #4 3 SP Micafungin #5 08/15 SP Meropenem #10 3 SP IV Colistin #9 3/4 SP vancomycin d# 9 and Zosyn and Gent d# 4 3/ SP cefepime day # 5 PICC line care Monitor chest x-ray f/u cocci ab, fungitell, AFB final cultures Monitor CBC US of Abd panculture ( Bl, Ur ,SP ) Subjective Allergies: Coded Allergies: No Known Allergies (Unverified , 07/31/17) Subjective increase of WBC and Alk Ph Objective Vital Signs Last 24 Hour Vital Signs Date Time Temp Pulse Resp B/P (MAP) Pulse Ox O2 Delivery O2 Flow Rate FiO2 09/09/17 20:00 98.5 106 26 111/77 100 Mechanical Ventilator 30 98.5 09/09/17 20:00 30 09/09/17 19:32 109 09/09/17 19:30 107 27 30 09/09/17 16:35 106 26 30 09/09/17 16:00 108 09/09/17 16:00 30 09/09/17 16:00 98.2 107 26 103/69 100 Mechanical Ventilator 30 98.2 09/09/17 15:24 110 25 30 09/09/17 13:00 106 26 30 09/09/17 12:00 98.1 109 16 104/70 100 Mechanical Ventilator 30 98.1 09/09/17 12:00 30 09/09/17 12:00 109 09/09/17 11:00 109 27 30 09/09/17 09:00 109 25 30 09/09/17 08:01 111 09/09/17 08:00 30 09/09/17 08:00 98.2 110 24 97/71 100 Mechanical Ventilator 30 98.2 09/09/17 06:30 112 26 30 09/09/17 05:13 115 27 30 09/09/17 04:00 97.2 117 27 109/71 98 Mechanical Ventilator 30 97.2 09/09/17 04:00 30 09/09/17 04:00 117 09/09/17 03:16 116 26 30 09/09/17 00:53 118 29 30 09/09/17 00:00 30 09/09/17 00:00 98.4 121 26 104/67 98 Mechanical Ventilator 30 98.4 09/09/17 00:00 121 09/08/17 23:13 122 24 30 09/08/17 21:30 118 27 30 Height (Feet): 6 Height (Inches): 0.00 Weight (Pounds): 129 HEENT: anicteric Respiratory/Chest: normal breath sounds Cardiovascular: regularly irregular Abdomen: soft, non tender Laboratory Tests Test 09/09/17 04:00 White Blood Count 22.4 K/UL (4.8-10.8) #*H Red Blood Count 3.06 M/UL (4.70-6.10) L Hemoglobin 9.0 G/DL (14.2-18.0) L Hematocrit 27.0 % (42.0-52.0) L Mean Corpuscular Volume 88 FL (80-99) Mean Corpuscular Hemoglobin 29.3 PG (27.0-31.0) Mean Corpuscular Hemoglobin Concent 33.3 G/DL (32.0-36.0) Red Cell Distribution Width 16.5 % (11.6-14.8) H Platelet Count 376 K/UL (150-450) Mean Platelet Volume 6.8 FL (6.5-10.1) Neutrophils (%) (Auto) % (45.0-75.0) Lymphocytes (%) (Auto) % (20.0-45.0) Monocytes (%) (Auto) % (1.0-10.0) Eosinophils (%) (Auto) % (0.0-3.0) Basophils (%) (Auto) % (0.0-2.0) Differential Total Cells Counted 100 Neutrophils % (Manual) 82 % (45-75) H Lymphocytes % (Manual) 9 % (20-45) L Monocytes % (Manual) 7 % (1-10) Eosinophils % (Manual) 2 % (0-3) Basophils % (Manual) 0 % (0-2) Band Neutrophils 0 % (0-8) Platelet Estimate Adequate Platelet Morphology Normal Hypochromasia 1+ Anisocytosis 1+ Sodium Level 138 MMOL/L (136-145) Potassium Level 4.6 MMOL/L (3.5-5.1) Chloride Level 108 MMOL/L (98-107) H Carbon Dioxide Level 20 MMOL/L (21-32) L Anion Gap 10 mmol/L (5-15) Blood Urea Nitrogen 41 mg/dL (7-18) H Creatinine 1.4 MG/DL (0.55-1.30) H Estimat Glomerular Filtration Rate 51.2 mL/min (>60) Glucose Level 128 MG/DL (74-106) H Calcium Level 9.0 MG/DL (8.5-10.1) Phosphorus Level 3.9 MG/DL (2.5-4.9) Magnesium Level 1.8 MG/DL (1.8-2.4) Total Bilirubin 0.4 MG/DL (0.2-1.0) Aspartate Amino Transf (AST/SGOT) 96 U/L (15-37) H Alanine Aminotransferase (ALT/SGPT) 47 U/L (12-78) Alkaline Phosphatase 809 U/L (46-116) H Total Protein 8.6 G/DL (6.4-8.2) H Albumin 2.1 G/DL (3.4-5.0) L Globulin 6.5 g/dL Albumin/Globulin Ratio 0.3 (1.0-2.7) L Current Medications Medications (Trade) Dose Ordered Sig/Serena Route PRN Reason Start Time Stop Time Status Last Admin Dose Admin Acetaminophen (Tylenol) 650 mg Q4H PRN GT Mild Pain/Temp > 100.5 08/11/17 20:45 09/10/17 20:44 09/02/17 20:48 Amiodarone HCl (Cordarone) 200 mg EVERY 12 HOURS GT 08/28/17 09:00 09/27/17 09:00 09/09/17 09:17 Chlorhexidine Gluconate (Ngoc-Hex 2%) 1 applic DAILY@1999 TOPIC 08/24/17 20:00 09/23/17 19:59 09/09/17 20:21 Dextrose (Dextrose 50%) 25 ml STAT PRN IV HYPOGLYCEMIA 09/07/17 08:45 10/07/17 08:44 Dextrose (Dextrose 50%) 50 ml STAT PRN IV Hypoglycemia 09/07/17 08:45 4/26/18 09:29 Heparin Sodium (Porcine) (Heparin 5000 units/ml) 5,000 units EVERY 12 HOURS SUBQ 08/28/17 09:00 09/27/17 09:00 09/09/17 09:18 Levetiracetam (Keppra) 250 mg BID GT 08/28/17 09:00 09/27/17 09:00 09/09/17 17:37 Meropenem 1 gm/ Sodium Chloride 110 ml @ 220 mls/hr Q8HR IVPB 09/09/17 14:00 09/14/17 13:59 09/09/17 14:10 Ondansetron HCl (Zofran) 4 mg Q6H PRN IVP Nausea & Vomiting 08/28/17 08:30 09/27/17 08:29 Opium Tincture (Opium Tincture) 2 ml QID ORAL 09/09/17 15:30 09/16/17 15:29 09/09/17 16:18 Pantoprazole (Protonix) 40 mg DAILY IV 08/01/17 09:00 09/30/17 08:59 09/09/17 09:17 Polyethylene Glycol (Miralax) 17 gm DAILYPRN PRN ORAL Constipation 08/28/17 08:00 09/27/17 08:00 Vancomycin HCl (Vanco rx to dose) 1 ea DAILY PRN MISC Per rx protocol 09/09/17 12:30 10/09/17 12:29 Vancomycin/Sodium Chloride 250 ml @ 166.667 mls/hr Q24H IVPB 09/09/17 15:00 09/14/17 14:59 09/09/17 16:10 Norman Chen MD Sep 09, 2017 20:50
[2017-09-10] VITALS: BP 95/60
--- NOTE | 2017-09-10 02:13 | General Progress Note ---
Assessment/Plan Assessment/Plan #. Anemia of chronic disease. Monitor closely. --> ESR 134. Hemoglobin has been above goal. --> Anemia workup reviewed. --> Iron 37, TIBC 99, Vit B12 535, Folate 11.4 --> Blood transfusion not required unless symptomatic or hgb below 7. --> Hemoglobin levels have been stable. #. Coagulopathy. Likely due to decreased vitamin K intake. Imaging reviewed. --> Prominent pancreas, calcification is noted. --> On anticoagulation -- heparin sq #. Leukocytosis, likely secondary to infection. --> On broad-spectrum antibiotics. --> Monitor closely. #. Dysphagia, status post percutaneous endoscopic gastrostomy tube. #. Cholelithiasis is noted on ultrasound. Borderline diabetic --> HIDA scan is negative. #. Transaminitis has since improved, potentially secondary to medications v other causes #. Wound care. #. Ventilator-associated pneumonia. --> On vent and abx --> Tachycardia. Subjective Date patient seen: Sep 08, 2017 Constitutional: Denies: no symptoms, chills, diaphoresis, fever, malaise, weakness, other HEENT: Denies: no symptoms, eye pain, blurred vision, tearing, double vision, ear pain, ear discharge, nose pain, nose congestion, throat pain, throat swelling, mouth pain, mouth swelling, other Cardiovascular: Denies: no symptoms, chest pain, edema, irregular heart rate, lightheadedness, palpitations, syncope, other Respiratory: Denies: no symptoms, cough, orthopnea, shortness of breath, SOB with excertion, SOB at rest, sputum, stridor, wheezing, other Gastrointestinal/Abdominal: Denies: no symptoms, abdomen distended, abdominal pain, black stools, tarry stools, blood in stool, constipated, diarrhea, difficulty swallowing, nausea, poor appetite, poor fluid intake, rectal bleeding , vomiting, other Genitourinary: Denies: no symptoms, burning, discharge, frequency, flank pain, hematuria, incontinence, pain, urgency, other Neurologic/Psychiatric: Denies: no symptoms, anxiety, depressed, emotional problems, headache, numbness, paresthesia, pre-existing deficit, seizure, tingling, tremors, weakness, other Hematologic/Lymphatic: Reports: anemia Allergies: Coded Allergies: No Known Allergies (Unverified , 07/31/17) Subjective Wbc count worsened from yesterday. On vent. Nonverbal. Objective Last 24 Hour Vital Signs Date Time Temp Pulse Resp B/P (MAP) Pulse Ox O2 Delivery O2 Flow Rate FiO2 09/10/17 01:24 104 26 30 09/10/17 00:00 30 09/10/17 00:00 98.0 106 25 95/60 99 Mechanical Ventilator 30 98.0 09/09/17 23:36 105 09/09/17 23:08 105 25 30 09/09/17 21:07 106 25 30 09/09/17 20:00 98.5 106 26 111/77 100 Mechanical Ventilator 30 98.5 09/09/17 20:00 30 09/09/17 19:32 109 09/09/17 19:30 107 27 30 09/09/17 16:35 106 26 30 09/09/17 16:00 108 09/09/17 16:00 30 09/09/17 16:00 98.2 107 26 103/69 100 Mechanical Ventilator 30 98.2 09/09/17 15:24 110 25 30 09/09/17 13:00 106 26 30 09/09/17 12:00 98.1 109 16 104/70 100 Mechanical Ventilator 30 98.1 09/09/17 12:00 30 09/09/17 12:00 109 09/09/17 11:00 109 27 30 09/09/17 09:00 109 25 30 09/09/17 08:01 111 09/09/17 08:00 30 09/09/17 08:00 98.2 110 24 97/71 100 Mechanical Ventilator 30 98.2 09/09/17 06:30 112 26 30 09/09/17 05:13 115 27 30 09/09/17 04:00 97.2 117 27 109/71 98 Mechanical Ventilator 30 97.2 09/09/17 04:00 30 09/09/17 04:00 117 09/09/17 03:16 116 26 30 Intake and Output 09/09/17 09/10/17 19:00 07:00 Intake Total 1055.000 ml 110 ml Output Total 350 ml Balance 705.000 ml 110 ml IV Total 360.000 ml 110 ml Tube Feeding 605 ml Other 90 ml Output Urine Total 350 ml Laboratory Tests 09/09/17 04:00: White Blood Count 22.4#*H, Red Blood Count 3.06L, Hemoglobin 9.0L, Hematocrit 27.0L, Mean Corpuscular Volume 88, Mean Corpuscular Hemoglobin 29.3, Mean Corpuscular Hemoglobin Concent 33.3, Red Cell Distribution Width 16.5H, Platelet Count 376, Mean Platelet Volume 6.8, Neutrophils (%) (Auto) , Lymphocytes (%) (Auto) , Monocytes (%) (Auto) , Eosinophils (%) (Auto) , Basophils (%) (Auto) , Differential Total Cells Counted 100, Neutrophils % ( Manual) 82H, Lymphocytes % (Manual) 9L, Monocytes % (Manual) 7, Eosinophils % ( Manual) 2, Basophils % (Manual) 0, Band Neutrophils 0, Platelet Estimate Adequate, Platelet Morphology Normal, Hypochromasia 1+, Anisocytosis 1+, Sodium Level 138, Potassium Level 4.6, Chloride Level 108H, Carbon Dioxide Level 20L, Anion Gap 10, Blood Urea Nitrogen 41H, Creatinine 1.4H, Estimat Glomerular Filtration Rate 51.2, Glucose Level 128H, Calcium Level 9.0, Phosphorus Level 3.9, Magnesium Level 1.8, Total Bilirubin 0.4, Aspartate Amino Transf (AST/SGOT ) 96H, Alanine Aminotransferase (ALT/SGPT) 47, Alkaline Phosphatase 809H, Total Protein 8.6H, Albumin 2.1L, Globulin 6.5, Albumin/Globulin Ratio 0.3L Height (Feet): 6 Height (Inches): 0.00 Weight (Pounds): 129 General Appearance: confused Respiratory/Chest: decreased breath sounds López Vásquez MD Sep 10, 2017 02:13
[2017-09-10 04:00] VITALS: BP 113/67
[2017-09-10 05:52] LABS: BASOPHILS % (AUTO) 0.7 % (0.0-2.0); EOSINOPHILS % (AUTO) 3.7 % (0.0-3.0); HEMATOCRIT 23.9 % (42.0-52.0); HEMOGLOBIN 8.4 G/DL (14.2-18.0); LYMPHOCYTES % (AUTO) 7.6 % (20.0-45.0); MEAN CORPUSCULAR VOLUME 88 FL (80-99); MONOCYTES % (AUTO) 4.9 % (1.0-10.0); NEUTROPHILS % (AUTO) 83.2 % (45.0-75.0); PLATELET COUNT 316 K/UL (150-450); RED BLOOD COUNT 2.72 M/UL (4.70-6.10); RED CELL DISTRIBUTION WIDTH 16.1 % (11.6-14.8); WHITE BLOOD COUNT 17.1 K/UL (4.8-10.8)
[2017-09-10] MEDS: Meropenem 1 GM in NS 110 ML IVPB SCH ×3 (05:56→21:20)
[2017-09-10 05:59] LABS: ALANINE AMINOTRANSFERASE 43 U/L (12-78); ALBUMIN/GLOBULIN RATIO 0.3 (1.0-2.7); ALKALINE PHOSPHATASE 1064 U/L (46-116); ANION GAP 10 mmol/L (5-15); ASPARTATE AMINO TRANSFERASE 90 U/L (15-37); BILIRUBIN,TOTAL 0.7 MG/DL (0.2-1.0); BLOOD UREA NITROGEN 48 mg/dL (7-18); CALCIUM 9.1 MG/DL (8.5-10.1); CARBON DIOXIDE 21 MMOL/L (21-32); CHLORIDE 110 MMOL/L (98-107); CREATININE 1.4 MG/DL (0.55-1.30); POTASSIUM 4.2 MMOL/L (3.5-5.1); SODIUM 141 MMOL/L (136-145)
[2017-09-10 08:00] VITALS: BP 106/70
[2017-09-10] MEDS: levETIRAcetam 500mg/5ml Liquid GT SCH ×2 (08:32→17:45)
[2017-09-10] MEDS: OPIUM ORAL SCH ×4 (08:32→21:21)
[2017-09-10] MEDS: Pantoprazole Inj IV SCH (08:32)
[2017-09-10] MEDS: Amiodarone 200mg tab GT SCH ×2 (08:33→20:50)
[2017-09-10] MEDS: Heparin 5000 units/ml inj SUBQ SCH ×2 (08:34→20:52)
--- NOTE | 2017-09-10 09:22 | Diagnostic Imaging Report ---
Indication: Increased LFTs Technique: Grayscale and duplex Doppler imaging of the abdomen performed. Comparison: None Findings: The liver is enlarged. The demonstrated part of the pancreas, aorta and IVC, both kidneys, spleen appear unremarkable. Gallstones are demonstrated. Sonographic Blake's is negative per technologist. CBD is prominent measuring 10 mm. Please correlate clinically. Further evaluation may be needed. Doppler evaluation of the main portal vein shows patency. There is no ascites. No hydronephrosis seen. Impression: Prominent biliary ducts. Further evaluation may be needed as clinically warranted. Cholelithiasis. Hepatomegaly
--- NOTE | 2017-09-10 09:49 | Diagnostic Imaging Report ---
Indication: Dyspnea Comparison: 09/07/2017 A single view chest radiograph was obtained. Findings: Mild atelectasis versus scarring demonstrated at the left lung base unchanged. Lung volumes are low. Tracheostomy and PICC line are stable. IMPRESSION: No change from the prior exam
--- NOTE | 2017-09-10 10:24 | Pulmonolgy Critical Care Note ---
Critical Care - Asmt/Plan Problems: (1) Sepsis (2) Chronic respiratory failure (3) UTI (urinary tract infection) (4) Feeding by G-tube (5) Pressure ulcer Assessment & Plan: still large amount of diarrhea, despite Tincture of Opium around the clock Respiratory: monitor respiratory rate Cardiac: continue to monitor HR/BP Renal: F/U I&O, keep IV fluid Infectious Disease: check cultures Gastrointestinal: continue feedings/current rate Endocrine: monitor blood sugar, check TSH Hematologic: monitor H/H Neurologic: PRN Ativan Prophylaxis: Heparin Disposition: keep in ICU Notes Reviewed: cardio, renal Discussed with: consultants, telehealth case managermanager ob - Objective Last 24 Hour Vital Signs Date Time Temp Pulse Resp B/P (MAP) Pulse Ox O2 Delivery O2 Flow Rate FiO2 09/10/17 08:00 30 09/10/17 08:00 98.5 100 18 106/70 100 Mechanical Ventilator 30 98.5 09/10/17 07:14 99 18 30 09/10/17 05:13 103 18 30 09/10/17 04:00 98.5 103 18 113/67 99 Mechanical Ventilator 30 98.5 09/10/17 04:00 30 09/10/17 03:37 104 09/10/17 03:17 105 22 30 09/10/17 01:24 104 26 30 09/10/17 00:00 30 09/10/17 00:00 98.0 106 25 95/60 99 Mechanical Ventilator 30 98.0 09/09/17 23:36 105 09/09/17 23:08 105 25 30 09/09/17 21:07 106 25 30 09/09/17 20:00 98.5 106 26 111/77 100 Mechanical Ventilator 30 98.5 09/09/17 20:00 30 09/09/17 19:32 109 09/09/17 19:30 107 27 30 09/09/17 16:35 106 26 30 09/09/17 16:00 108 09/09/17 16:00 30 09/09/17 16:00 98.2 107 26 103/69 100 Mechanical Ventilator 30 98.2 09/09/17 15:24 110 25 30 09/09/17 13:00 106 26 30 09/09/17 12:00 98.1 109 16 104/70 100 Mechanical Ventilator 30 98.1 09/09/17 12:00 30 09/09/17 12:00 109 09/09/17 11:00 109 27 30 Status: somnolent Condition: critical HEENT: atraumatic Neck: full ROM Lungs: chest wall tender Heart: HR/BP stable Abdomen: soft, non-tender Extremities: edema Decubiti: location Micro: Microbiology Date/Time Source Procedure Growth Status 09/09/17 13:20 Sputum Gram Stain - Final Resulted 09/09/17 13:20 Sputum Sputum Culture - Preliminary Resulted 09/09/17 13:00 Stool Clostridium difficile Toxin Assay - Final Complete Accucheck: 131 Critical Care - Subjective ROS Limited/Unobtainable: Yes FI02: 30 Vent Support Breath Rate: 18 Vent Support Mode: AC Vent Tidal Volume: 550 Sputum Amount: Small PEEP: 5.0 PIP: 27 Tube Feeding Amount: 55 I&O: Intake and Output 09/09/17 09/10/17 19:00 07:00 Intake Total 1110.000 ml 495 ml Output Total 350 ml 300 ml Balance 760.000 ml 195 ml IV Total 360.000 ml 220 ml Tube Feeding 660 ml 275 ml Other 90 ml Output Urine Total 350 ml 150 ml Stool Total 150 ml CXR: no change Labs: Laboratory Tests Test 09/10/17 03:55 White Blood Count 17.1 K/UL (4.8-10.8) H Red Blood Count 2.72 M/UL (4.70-6.10) L Hemoglobin 8.4 G/DL (14.2-18.0) L Hematocrit 23.9 % (42.0-52.0) L Mean Corpuscular Volume 88 FL (80-99) Mean Corpuscular Hemoglobin 31.1 PG (27.0-31.0) H Mean Corpuscular Hemoglobin Concent 35.3 G/DL (32.0-36.0) Red Cell Distribution Width 16.1 % (11.6-14.8) H Platelet Count 316 K/UL (150-450) Mean Platelet Volume 7.8 FL (6.5-10.1) Neutrophils (%) (Auto) 83.2 % (45.0-75.0) H Lymphocytes (%) (Auto) 7.6 % (20.0-45.0) L Monocytes (%) (Auto) 4.9 % (1.0-10.0) Eosinophils (%) (Auto) 3.7 % (0.0-3.0) H Basophils (%) (Auto) 0.7 % (0.0-2.0) Sodium Level 141 MMOL/L (136-145) Potassium Level 4.2 MMOL/L (3.5-5.1) Chloride Level 110 MMOL/L (98-107) H Carbon Dioxide Level 21 MMOL/L (21-32) Anion Gap 10 mmol/L (5-15) Blood Urea Nitrogen 48 mg/dL (7-18) H Creatinine 1.4 MG/DL (0.55-1.30) H Estimat Glomerular Filtration Rate 51.2 mL/min (>60) Glucose Level 105 MG/DL (74-106) Calcium Level 9.1 MG/DL (8.5-10.1) Total Bilirubin 0.7 MG/DL (0.2-1.0) Aspartate Amino Transf (AST/SGOT) 90 U/L (15-37) H Alanine Aminotransferase (ALT/SGPT) 43 U/L (12-78) Alkaline Phosphatase 1064 U/L (46-116) H Pro-B-Type Natriuretic Peptide 385 pg/mL (0-125) H Total Protein 8.2 G/DL (6.4-8.2) Albumin 2.0 G/DL (3.4-5.0) L Globulin 6.2 g/dL Albumin/Globulin Ratio 0.3 (1.0-2.7) L Ernestina James MD Sep 10, 2017 10:24
--- NOTE | 2017-09-10 10:53 | General Progress Note ---
Assessment/Plan Assessment/Plan GI CONSULT Dictated Thank you Renate Nelson MD Subjective Allergies: Coded Allergies: No Known Allergies (Unverified , 07/31/17) Objective Last 24 Hour Vital Signs Date Time Temp Pulse Resp B/P (MAP) Pulse Ox O2 Delivery O2 Flow Rate FiO2 09/10/17 09:06 101 18 30 09/10/17 08:00 30 09/10/17 08:00 98.5 100 18 106/70 100 Mechanical Ventilator 30 98.5 09/10/17 07:31 100 09/10/17 07:14 99 18 30 09/10/17 05:13 103 18 30 09/10/17 04:00 98.5 103 18 113/67 99 Mechanical Ventilator 30 98.5 09/10/17 04:00 30 09/10/17 03:37 104 09/10/17 03:17 105 22 30 09/10/17 01:24 104 26 30 09/10/17 00:00 30 09/10/17 00:00 98.0 106 25 95/60 99 Mechanical Ventilator 30 98.0 09/09/17 23:36 105 09/09/17 23:08 105 25 30 09/09/17 21:07 106 25 30 09/09/17 20:00 98.5 106 26 111/77 100 Mechanical Ventilator 30 98.5 09/09/17 20:00 30 09/09/17 19:32 109 09/09/17 19:30 107 27 30 09/09/17 16:35 106 26 30 09/09/17 16:00 108 09/09/17 16:00 30 09/09/17 16:00 98.2 107 26 103/69 100 Mechanical Ventilator 30 98.2 09/09/17 15:24 110 25 30 09/09/17 13:00 106 26 30 09/09/17 12:00 98.1 109 16 104/70 100 Mechanical Ventilator 30 98.1 09/09/17 12:00 30 09/09/17 12:00 109 09/09/17 11:00 109 27 30 Intake and Output 09/09/17 09/10/17 19:00 07:00 Intake Total 1110.000 ml 495 ml Output Total 350 ml 300 ml Balance 760.000 ml 195 ml IV Total 360.000 ml 220 ml Tube Feeding 660 ml 275 ml Other 90 ml Output Urine Total 350 ml 150 ml Stool Total 150 ml Laboratory Tests 09/10/17 03:55: White Blood Count 17.1H, Red Blood Count 2.72L, Hemoglobin 8.4L, Hematocrit 23.9L, Mean Corpuscular Volume 88, Mean Corpuscular Hemoglobin 31.1H, Mean Corpuscular Hemoglobin Concent 35.3, Red Cell Distribution Width 16.1H, Platelet Count 316, Mean Platelet Volume 7.8, Neutrophils (%) (Auto) 83.2H, Lymphocytes (%) (Auto) 7.6L, Monocytes (%) (Auto) 4.9, Eosinophils (%) (Auto) 3.7H, Basophils (%) (Auto) 0.7, Sodium Level 141, Potassium Level 4.2, Chloride Level 110H, Carbon Dioxide Level 21, Anion Gap 10, Blood Urea Nitrogen 48H, Creatinine 1.4H, Estimat Glomerular Filtration Rate 51.2, Glucose Level 105, Calcium Level 9.1, Total Bilirubin 0.7, Aspartate Amino Transf (AST/SGOT) 90H, Alanine Aminotransferase (ALT/SGPT) 43, Alkaline Phosphatase 1064H, Pro-B-Type Natriuretic Peptide 385H, Total Protein 8.2, Albumin 2.0L, Globulin 6.2, Albumin /Globulin Ratio 0.3L Height (Feet): 6 Height (Inches): 0.00 Weight (Pounds): 129 SIVA NELSON Sep 10, 2017 10:53
[2017-09-10 12:00] VITALS: BP 108/72
[2017-09-10] MEDS: Vancomycin 750mg/NS 250ml IVPB SCH (15:01)
[2017-09-10] MEDS: Acetaminophen 650mg/20.3ml GT PRN (15:30)
[2017-09-10 16:00] VITALS: BP 60/72
[2017-09-10 20:00] VITALS: BP 102/64
[2017-09-10] MEDS: Dyna-Hex 2% Top Sol 2oz TOPIC SCH (20:48)
--- NOTE | 2017-09-10 22:45 | Consultation ---
DATE OF CONSULTATION: 09/10/2017 GASTROENTEROLOGY CONSULTATION CONSULTING PHYSICIAN: Kaiden Nelson M.D. CHIEF COMPLAINT: I was asked to see this patient for Dr. Owens for evaluation of diarrhea. HISTORY OF PRESENT ILLNESS: The patient is an unfortunate 62-year-old man, who has tracheostomy and gastrostomy. The patient was then found to have excessive diarrhea. The patient himself is unable to provide any history and most of the information is only available from the chart. The patient was admitted back in late July for rapid heart rate and fever and he has been here in the hospital since. He has complicated course and has been followed by multiple consultants as outlined in the chart. The patient has been noted to have an elevated white count in the last few days and ongoing diarrhea despite ehke-ctxeq-y-day dosing of the tincture of opium. His Clostridium difficile assay has been negative. He is on broad-spectrum antibiotics with meropenem and vancomycin and he is also on Protonix and Keppra. PAST MEDICAL HISTORY: Multiple history of chronic respiratory failure, status tracheostomy, dysphagia, status gastrostomy, organic brain syndrome, encephalopathy, contracture deformities, seizure disorder, FAMILY HISTORY: Unavailable. SOCIAL HISTORY: Unavailable. REVIEW OF SYSTEMS: Unobtainable. PHYSICAL EXAMINATION: GENERAL: Debilitated, unresponsive man, seen in his room. HEENT: Normocephalic and atraumatic. Sclerae anicteric. Oropharynx clear as much as could be examined. NECK: Showed a tracheostomy catheter. CARDIOVASCULAR: Revealed regular rate. CHEST: Revealed coarse rhonchi. ABDOMEN: Soft, scaphoid with a 16-Divehi gastrostomy tube. EXTREMITIES: Revealed contracture deformities. RECTAL: The patient had rectal tube with brown liquid stool with bits of white tube feeding material. LABORATORY DATA: Noted. ASSESSMENT: This patient has profuse diarrhea despite 2-tcils-j-day tincture of opium. The etiology is unclear and the Clostridium difficile assay is negative. My evaluation of the CT scan which was done lately does not clearly show the G-tube perfectly within the stomach. Part of it appears to be perhaps within the stomach, but part of it outside or perhaps connecting with the colon in the transverse portion. If there is any leakage of tube feeding from erosion into the colon, then tube-feeding diarrhea would certainly be the result. That would explain the undigested tube feeding material seen in the diarrhea and the collection bag. Alternatively, proton-pump inhibitors have been at times associated with diarrhea and therefore, this can be held to see if it helps. Alternatively, the patient may have antibiotic-associated diarrhea which is not infectious, but typically not this refractory to treatment. As a first step, I will order stat Gastrografin G-tube study to locate the tip. If it is perfectly within the stomach then the next step will be to hold the tube feeding for a few days to see if diarrhea stops and that will be consistent with tube feeding-related diarrhea. If not, then diarrhea due to medications can be considered and then the proton-pump inhibitor should be held. These steps will have to be done in a step-lundberg fashion in order to eliminate the correct possibility for the patient's symptoms. RECOMMENDATIONS: Per above discussion and per orders written in the chart. Thank you for asking me to participate in the care of this patient. Kaiden Nelson M.D. DR: TERESA JOB#: [id number] CC:
--- NOTE | 2017-09-10 23:56 | General Progress Note ---
Assessment/Plan Assessment/Plan #. Anemia of chronic disease. Monitor closely. --> ESR 134. Hemoglobin has been above goal. --> Anemia workup reviewed. --> Iron 37, TIBC 99, Vit B12 535, Folate 11.4 --> Blood transfusion not required unless symptomatic or hgb below 7. --> Hemoglobin levels have been stable. #. Coagulopathy. Likely due to decreased vitamin K intake. Imaging reviewed. --> Prominent pancreas, calcification is noted. --> On anticoagulation -- heparin sq #. Leukocytosis, likely secondary to infection. --> On broad-spectrum antibiotics. --> Monitor closely. #. Dysphagia, status post percutaneous endoscopic gastrostomy tube. #. Cholelithiasis is noted on ultrasound. Borderline diabetic --> HIDA scan is negative. #. Transaminitis has since improved, potentially secondary to medications v other causes #. Wound care. #. Ventilator-associated pneumonia. --> On vent and abx --> Tachycardia improved. --> Contracted. Subjective Date patient seen: Sep 09, 2017 Constitutional: Denies: no symptoms, chills, diaphoresis, fever, malaise, weakness, other HEENT: Denies: no symptoms, eye pain, blurred vision, tearing, double vision, ear pain, ear discharge, nose pain, nose congestion, throat pain, throat swelling, mouth pain, mouth swelling, other Cardiovascular: Denies: no symptoms, chest pain, edema, irregular heart rate, lightheadedness, palpitations, syncope, other Respiratory: Denies: no symptoms, cough, orthopnea, shortness of breath, SOB with excertion, SOB at rest, sputum, stridor, wheezing, other Gastrointestinal/Abdominal: Denies: no symptoms, abdomen distended, abdominal pain, black stools, tarry stools, blood in stool, constipated, diarrhea, difficulty swallowing, nausea, poor appetite, poor fluid intake, rectal bleeding , vomiting, other Genitourinary: Denies: no symptoms, burning, discharge, frequency, flank pain, hematuria, incontinence, pain, urgency, other Neurologic/Psychiatric: Denies: no symptoms, anxiety, depressed, emotional problems, headache, numbness, paresthesia, pre-existing deficit, seizure, tingling, tremors, weakness, other Hematologic/Lymphatic: Reports: anemia Allergies: Coded Allergies: No Known Allergies (Unverified , 2/25/18) Subjective Remains nonverbal. On antibiotic treatment. Leukocytosis improved. Objective Last 24 Hour Vital Signs Date Time Temp Pulse Resp B/P (MAP) Pulse Ox O2 Delivery O2 Flow Rate FiO2 09/10/17 21:31 99 18 30 09/10/17 21:31 99 18 30 09/10/17 20:00 97.5 100 18 102/64 100 Mechanical Ventilator 30 97.5 09/10/17 20:00 30 09/10/17 19:55 94 18 30 09/10/17 19:24 95 09/10/17 17:17 101 18 30 09/10/17 16:00 102.0 105 18 60/72 100 Mechanical Ventilator 30 102.0 09/10/17 16:00 30 09/10/17 16:00 99.0 09/10/17 16:00 105 09/10/17 15:30 102.0 09/10/17 15:05 106 18 30 09/10/17 13:05 108 18 30 09/10/17 12:00 30 09/10/17 12:00 97.7 98 18 108/72 100 Mechanical Ventilator 30 97.7 09/10/17 12:00 30 09/10/17 11:37 102 09/10/17 10:58 102 18 30 09/10/17 09:06 101 18 30 09/10/17 08:00 30 09/10/17 08:00 98.5 100 18 106/70 100 Mechanical Ventilator 30 98.5 09/10/17 07:31 100 09/10/17 07:30 100 09/10/17 07:14 99 18 30 09/10/17 05:13 103 18 30 09/10/17 04:00 98.5 103 18 113/67 99 Mechanical Ventilator 30 98.5 09/10/17 04:00 30 09/10/17 03:37 104 09/10/17 03:17 105 22 30 09/10/17 01:24 104 26 30 09/10/17 00:00 30 09/10/17 00:00 98.0 106 25 95/60 99 Mechanical Ventilator 30 98.0 Intake and Output 09/09/17 09/10/17 19:00 07:00 Intake Total 1110.000 ml 495 ml Output Total 350 ml 300 ml Balance 760.000 ml 195 ml IV Total 360.000 ml 220 ml Tube Feeding 660 ml 275 ml Other 90 ml Output Urine Total 350 ml 150 ml Stool Total 150 ml Laboratory Tests 09/10/17 03:55: White Blood Count 17.1H, Red Blood Count 2.72L, Hemoglobin 8.4L, Hematocrit 23.9L, Mean Corpuscular Volume 88, Mean Corpuscular Hemoglobin 31.1H, Mean Corpuscular Hemoglobin Concent 35.3, Red Cell Distribution Width 16.1H, Platelet Count 316, Mean Platelet Volume 7.8, Neutrophils (%) (Auto) 83.2H, Lymphocytes (%) (Auto) 7.6L, Monocytes (%) (Auto) 4.9, Eosinophils (%) (Auto) 3.7H, Basophils (%) (Auto) 0.7, Sodium Level 141, Potassium Level 4.2, Chloride Level 110H, Carbon Dioxide Level 21, Anion Gap 10, Blood Urea Nitrogen 48H, Creatinine 1.4H, Estimat Glomerular Filtration Rate 51.2, Glucose Level 105, Calcium Level 9.1, Total Bilirubin 0.7, Aspartate Amino Transf (AST/SGOT) 90H, Alanine Aminotransferase (ALT/SGPT) 43, Alkaline Phosphatase 1064H, Pro-B-Type Natriuretic Peptide 385H, Total Protein 8.2, Albumin 2.0L, Globulin 6.2, Albumin /Globulin Ratio 0.3L Height (Feet): 6 Height (Inches): 0.00 Weight (Pounds): 129 General Appearance: lethargic Cardiovascular: tachycardia Respiratory/Chest: decreased breath sounds López Vásquez MD Sep 10, 2017 23:56
[2017-09-11] VITALS: BP 99/62
[2017-09-11 04:00] VITALS: BP 100/62
[2017-09-11] MEDS: Meropenem 1 GM in NS 110 ML IVPB SCH ×3 (05:07→21:03)
[2017-09-11 05:22] LABS: BASOPHILS % (AUTO) 0.7 % (0.0-2.0); EOSINOPHILS % (AUTO) 2.1 % (0.0-3.0); HEMATOCRIT 26.3 % (42.0-52.0); HEMOGLOBIN 8.7 G/DL (14.2-18.0); LYMPHOCYTES % (AUTO) 10.7 % (20.0-45.0); MEAN CORPUSCULAR VOLUME 90 FL (80-99); MONOCYTES % (AUTO) 5.9 % (1.0-10.0); NEUTROPHILS % (AUTO) 80.6 % (45.0-75.0); PLATELET COUNT 318 K/UL (150-450); RED BLOOD COUNT 2.94 M/UL (4.70-6.10); RED CELL DISTRIBUTION WIDTH 15.7 % (11.6-14.8); WHITE BLOOD COUNT 10.9 K/UL (4.8-10.8)
[2017-09-11 05:29] LABS: INR 1.3 (0.9-1.1)
[2017-09-11 05:45] LABS: ALANINE AMINOTRANSFERASE 54 U/L (12-78); ALBUMIN 1.9 G/DL (3.4-5.0); ALBUMIN/GLOBULIN RATIO 0.3 (1.0-2.7); ALKALINE PHOSPHATASE 1562 U/L (46-116); ANION GAP 11 mmol/L (5-15); ASPARTATE AMINO TRANSFERASE 121 U/L (15-37); BILIRUBIN,TOTAL 1.4 MG/DL (0.2-1.0); BLOOD UREA NITROGEN 51 mg/dL (7-18); CALCIUM 9.4 MG/DL (8.5-10.1); CARBON DIOXIDE 20 MMOL/L (21-32); CHLORIDE 112 MMOL/L (98-107); CREATININE 1.4 MG/DL (0.55-1.30); PHOSPHORUS 4.3 MG/DL (2.5-4.9); POTASSIUM 4.3 MMOL/L (3.5-5.1); SODIUM 143 MMOL/L (136-145)
[2017-09-11 05:49] LABS: BILIRUBIN,DIRECT 0.9 MG/DL (0.0-0.3)
[2017-09-11 08:00] VITALS: BP 102/65
--- NOTE | 2017-09-11 09:44 | Pulmonolgy Critical Care Note ---
Critical Care - Asmt/Plan Problems: (1) Sepsis (2) Chronic respiratory failure (3) UTI (urinary tract infection) (4) Feeding by G-tube (5) Pressure ulcer Assessment & Plan: still large amount of diarrhea, despite Tincture of Opium around the clock. 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 - Objective Last 24 Hour Vital Signs Date Time Temp Pulse Resp B/P (MAP) Pulse Ox O2 Delivery O2 Flow Rate FiO2 09/11/17 08:53 95 18 30 09/11/17 07:00 95 18 30 09/11/17 05:36 94 18 30 09/11/17 04:00 98.2 95 18 100/62 100 Mechanical Ventilator 30 98.2 09/11/17 04:00 30 09/11/17 03:24 95 18 30 09/11/17 02:58 98 09/11/17 01:34 99 21 30 09/11/17 00:00 92 09/11/17 00:00 98.2 93 18 99/62 100 Mechanical Ventilator 30 98.2 09/11/17 00:00 30 09/10/17 23:22 91 18 30 09/10/17 21:31 99 18 30 09/10/17 21:31 99 18 30 09/10/17 20:00 97.5 100 18 102/64 100 Mechanical Ventilator 30 97.5 09/10/17 20:00 30 09/10/17 19:55 94 18 30 09/10/17 19:24 95 09/10/17 17:17 101 18 30 09/10/17 16:00 102.0 105 18 60/72 100 Mechanical Ventilator 30 102.0 09/10/17 16:00 30 09/10/17 16:00 99.0 09/10/17 16:00 105 09/10/17 15:30 102.0 09/10/17 15:05 106 18 30 09/10/17 13:05 108 18 30 09/10/17 12:00 30 09/10/17 12:00 97.7 98 18 108/72 100 Mechanical Ventilator 30 97.7 09/10/17 12:00 30 09/10/17 11:37 102 09/10/17 10:58 102 18 30 Status: awake Condition: critical HEENT: atraumatic Heart: HR/BP stable, HR/BP unstable Abdomen: non-tender, active bowel sounds Extremities: edema Decubiti: stage Micro: Microbiology Date/Time Source Procedure Growth Status 09/09/17 13:15 Blood Blood Culture - Preliminary NO GROWTH AFTER 24 HOURS Resulted 09/09/17 13:10 Blood Blood Culture - Preliminary NO GROWTH AFTER 24 HOURS Resulted 09/09/17 13:20 Sputum Gram Stain - Final Resulted 09/09/17 13:20 Sputum Culture - Preliminary Gram Negative Bacillus 1 Resulted 09/09/17 13:00 Stool Clostridium difficile Toxin Assay - Final Complete 09/10/17 03:00 Urine,Clean Catch Urine Culture - Preliminary YEAST Resulted Accucheck: 131 Critical Care - Subjective ROS Limited/Unobtainable: No Condition: critical EKG Rhythm: Sinus Rhythm FI02: 30 Vent Support Breath Rate: 18 Vent Support Mode: AC Vent Tidal Volume: 550 Sputum Amount: Small PEEP: 5.0 PIP: 27 I&O: Intake and Output 09/10/17 09/11/17 19:00 07:00 Intake Total 450.000 ml 540 ml Output Total 520 ml 330 ml Balance -70.000 ml 210 ml Free Water 30 ml 100 ml IV Total 360.000 ml 440 ml Other 60 ml Output Urine Total 450 ml 300 ml Stool Total 70 ml 30 ml CXR: no change Labs: Laboratory Tests Test 09/11/17 04:10 White Blood Count 10.9 K/UL (4.8-10.8) H Red Blood Count 2.94 M/UL (4.70-6.10) L Hemoglobin 8.7 G/DL (14.2-18.0) L Hematocrit 26.3 % (42.0-52.0) L Mean Corpuscular Volume 90 FL (80-99) Mean Corpuscular Hemoglobin 29.5 PG (27.0-31.0) Mean Corpuscular Hemoglobin Concent 32.9 G/DL (32.0-36.0) Red Cell Distribution Width 15.7 % (11.6-14.8) H Platelet Count 318 K/UL (150-450) Mean Platelet Volume 7.0 FL (6.5-10.1) Neutrophils (%) (Auto) 80.6 % (45.0-75.0) H Lymphocytes (%) (Auto) 10.7 % (20.0-45.0) L Monocytes (%) (Auto) 5.9 % (1.0-10.0) Eosinophils (%) (Auto) 2.1 % (0.0-3.0) Basophils (%) (Auto) 0.7 % (0.0-2.0) Prothrombin Time 13.6 SEC (9.30-11.50) H Prothromb Time International Ratio 1.3 (0.9-1.1) H Activated Partial Thromboplast Time 32 SEC (23-33) Sodium Level 143 MMOL/L (136-145) Potassium Level 4.3 MMOL/L (3.5-5.1) Chloride Level 112 MMOL/L (98-107) H Carbon Dioxide Level 20 MMOL/L (21-32) L Anion Gap 11 mmol/L (5-15) Blood Urea Nitrogen 51 mg/dL (7-18) H Creatinine 1.4 MG/DL (0.55-1.30) H Estimat Glomerular Filtration Rate 51.2 mL/min (>60) Glucose Level 100 MG/DL (74-106) Calcium Level 9.4 MG/DL (8.5-10.1) Phosphorus Level 4.3 MG/DL (2.5-4.9) Magnesium Level 2.1 MG/DL (1.8-2.4) Total Bilirubin 1.4 MG/DL (0.2-1.0) H Direct Bilirubin 0.9 MG/DL (0.0-0.3) H Aspartate Amino Transf (AST/SGOT) 121 U/L (15-37) H Alanine Aminotransferase (ALT/SGPT) 54 U/L (12-78) Alkaline Phosphatase 1562 U/L (46-116) H Total Protein 8.2 G/DL (6.4-8.2) Albumin 1.9 G/DL (3.4-5.0) L Globulin 6.3 g/dL Albumin/Globulin Ratio 0.3 (1.0-2.7) L Ernestina James MD Sep 11, 2017 09:44
--- NOTE | 2017-09-11 10:19 | General Surgery Progress Note ---
General Surgery-Progress Note Subjective Additional Comments wounds evaluated at bedside. Objective Last 24 Hour Vital Signs Date Time Temp Pulse Resp B/P (MAP) Pulse Ox O2 Delivery O2 Flow Rate FiO2 09/11/17 08:53 95 18 30 09/11/17 08:00 94 09/11/17 07:00 95 18 30 09/11/17 05:36 94 18 30 09/11/17 04:00 98.2 95 18 100/62 100 Mechanical Ventilator 30 98.2 09/11/17 04:00 30 09/11/17 03:24 95 18 30 09/11/17 02:58 98 09/11/17 01:34 99 21 30 09/11/17 00:00 92 09/11/17 00:00 98.2 93 18 99/62 100 Mechanical Ventilator 30 98.2 09/11/17 00:00 30 09/10/17 23:22 91 18 30 09/10/17 21:31 99 18 30 09/10/17 21:31 99 18 30 09/10/17 20:00 97.5 100 18 102/64 100 Mechanical Ventilator 30 97.5 09/10/17 20:00 30 09/10/17 19:55 94 18 30 09/10/17 19:24 95 09/10/17 17:17 101 18 30 09/10/17 16:00 102.0 105 18 60/72 100 Mechanical Ventilator 30 102.0 09/10/17 16:00 30 09/10/17 16:00 99.0 09/10/17 16:00 105 09/10/17 15:30 102.0 09/10/17 15:05 106 18 30 09/10/17 13:05 108 18 30 09/10/17 12:00 30 09/10/17 12:00 97.7 98 18 108/72 100 Mechanical Ventilator 30 97.7 09/10/17 12:00 30 09/10/17 11:37 102 09/10/17 10:58 102 18 30 I&O Intake and Output 09/10/17 09/11/17 19:00 07:00 Intake Total 450.000 ml 540 ml Output Total 520 ml 330 ml Balance -70.000 ml 210 ml Free Water 30 ml 100 ml IV Total 360.000 ml 440 ml Other 60 ml Output Urine Total 450 ml 300 ml Stool Total 70 ml 30 ml Dressing: dry Wound: clean, dry, intact Laboratory Tests Test 09/11/17 04:10 White Blood Count 10.9 K/UL (4.8-10.8) H Red Blood Count 2.94 M/UL (4.70-6.10) L Hemoglobin 8.7 G/DL (14.2-18.0) L Hematocrit 26.3 % (42.0-52.0) L Mean Corpuscular Volume 90 FL (80-99) Mean Corpuscular Hemoglobin 29.5 PG (27.0-31.0) Mean Corpuscular Hemoglobin Concent 32.9 G/DL (32.0-36.0) Red Cell Distribution Width 15.7 % (11.6-14.8) H Platelet Count 318 K/UL (150-450) Mean Platelet Volume 7.0 FL (6.5-10.1) Neutrophils (%) (Auto) 80.6 % (45.0-75.0) H Lymphocytes (%) (Auto) 10.7 % (20.0-45.0) L Monocytes (%) (Auto) 5.9 % (1.0-10.0) Eosinophils (%) (Auto) 2.1 % (0.0-3.0) Basophils (%) (Auto) 0.7 % (0.0-2.0) Prothrombin Time 13.6 SEC (9.30-11.50) H Prothromb Time International Ratio 1.3 (0.9-1.1) H Activated Partial Thromboplast Time 32 SEC (23-33) Sodium Level 143 MMOL/L (136-145) Potassium Level 4.3 MMOL/L (3.5-5.1) Chloride Level 112 MMOL/L (98-107) H Carbon Dioxide Level 20 MMOL/L (21-32) L Anion Gap 11 mmol/L (5-15) Blood Urea Nitrogen 51 mg/dL (7-18) H Creatinine 1.4 MG/DL (0.55-1.30) H Estimat Glomerular Filtration Rate 51.2 mL/min (>60) Glucose Level 100 MG/DL (74-106) Calcium Level 9.4 MG/DL (8.5-10.1) Phosphorus Level 4.3 MG/DL (2.5-4.9) Magnesium Level 2.1 MG/DL (1.8-2.4) Total Bilirubin 1.4 MG/DL (0.2-1.0) H Direct Bilirubin 0.9 MG/DL (0.0-0.3) H Aspartate Amino Transf (AST/SGOT) 121 U/L (15-37) H Alanine Aminotransferase (ALT/SGPT) 54 U/L (12-78) Alkaline Phosphatase 1562 U/L (46-116) H Total Protein 8.2 G/DL (6.4-8.2) Albumin 1.9 G/DL (3.4-5.0) L Globulin 6.3 g/dL Albumin/Globulin Ratio 0.3 (1.0-2.7) L Plan Problems: (1) Pressure ulcer Assessment & Plan: sacral ulcers without no necrotic tissue or dermal breakdown at this time. no signs of infection from sacral and hip wounds recommend dressings and skin barrier as currently being placed turn q2h keep pressure off wounds unfortunately given patients condition will need aggressive prevention or will progress. fortunately great nursing care being provided and currently stable. thank you for this consultation. will follow with recs. Jesus Martin Sep 11, 2017 10:19
[2017-09-11] MEDS: Pantoprazole Inj IV SCH (10:24)
[2017-09-11] MEDS: levETIRAcetam 500mg/5ml Liquid GT SCH ×2 (10:24→18:58)
[2017-09-11] MEDS: Amiodarone 200mg tab GT SCH ×2 (10:24→20:49)
[2017-09-11] MEDS: OPIUM ORAL SCH ×4 (10:25→20:49)
[2017-09-11] MEDS: Heparin 5000 units/ml inj SUBQ SCH ×2 (10:26→20:50)
--- NOTE | 2017-09-11 11:51 | Diagnostic Imaging Report ---
Indication: Gastrostomy check Comparison: None Single view of the abdomen obtained Findings: Contrast in the lumen of the stomach noted. No leak identified. The tip is in the body of the stomach. IMPRESSION: Unremarkable gastrostomy check
[2017-09-11 12:00] VITALS: BP 102/60
--- NOTE | 2017-09-11 13:58 | General Progress Note ---
Assessment/Plan Assessment/Plan Assessment - OBS - Respiratory failure - diarrhea - dysphagia Recommendations - continue DTO - hold TF another day - monitor stool outptut - If diarrhea continues off of TF, then hold PPI Subjective Allergies: Coded Allergies: No Known Allergies (Unverified , 07/31/17) Subjective still with diarrhea off of TF x 24 hours non verbal Objective Last 24 Hour Vital Signs Date Time Temp Pulse Resp B/P (MAP) Pulse Ox O2 Delivery O2 Flow Rate FiO2 09/11/17 13:09 102 18 30 09/11/17 12:00 99.5 96 18 102/60 100 Mechanical Ventilator 30 99.5 09/11/17 12:00 30 09/11/17 10:51 96 18 30 09/11/17 08:53 95 18 30 09/11/17 08:00 94 09/11/17 08:00 100.0 94 18 102/65 100 Mechanical Ventilator 30 100.0 09/11/17 08:00 30 09/11/17 07:00 95 18 30 09/11/17 05:36 94 18 30 09/11/17 04:00 98.2 95 18 100/62 100 Mechanical Ventilator 30 98.2 09/11/17 04:00 30 09/11/17 03:24 95 18 30 09/11/17 02:58 98 09/11/17 01:34 99 21 30 09/11/17 00:00 92 09/11/17 00:00 98.2 93 18 99/62 100 Mechanical Ventilator 30 98.2 09/11/17 00:00 30 09/10/17 23:22 91 18 30 09/10/17 21:31 99 18 30 09/10/17 21:31 99 18 30 09/10/17 20:00 97.5 100 18 102/64 100 Mechanical Ventilator 30 97.5 09/10/17 20:00 30 09/10/17 19:55 94 18 30 09/10/17 19:24 95 09/10/17 17:17 101 18 30 09/10/17 16:00 102.0 105 18 60/72 100 Mechanical Ventilator 30 102.0 09/10/17 16:00 30 09/10/17 16:00 99.0 09/10/17 16:00 105 09/10/17 15:30 102.0 09/10/17 15:05 106 18 30 Intake and Output 09/10/17 09/11/17 19:00 07:00 Intake Total 450.000 ml 540 ml Output Total 520 ml 330 ml Balance -70.000 ml 210 ml Free Water 30 ml 100 ml IV Total 360.000 ml 440 ml Other 60 ml Output Urine Total 450 ml 300 ml Stool Total 70 ml 30 ml Laboratory Tests 09/11/17 04:10: White Blood Count 10.9H, Red Blood Count 2.94L, Hemoglobin 8.7L, Hematocrit 26.3L, Mean Corpuscular Volume 90, Mean Corpuscular Hemoglobin 29.5, Mean Corpuscular Hemoglobin Concent 32.9, Red Cell Distribution Width 15.7H, Platelet Count 318, Mean Platelet Volume 7.0, Neutrophils (%) (Auto) 80.6H, Lymphocytes (%) (Auto) 10.7L, Monocytes (%) (Auto) 5.9, Eosinophils (%) (Auto) 2.1, Basophils (%) (Auto) 0.7, Prothrombin Time 13.6H, Prothromb Time International Ratio 1.3H, Activated Partial Thromboplast Time 32, Sodium Level 143, Potassium Level 4.3, Chloride Level 112H, Carbon Dioxide Level 20L, Anion Gap 11, Blood Urea Nitrogen 51H, Creatinine 1.4H, Estimat Glomerular Filtration Rate 51.2, Glucose Level 100, Calcium Level 9.4, Phosphorus Level 4.3, Magnesium Level 2.1, Total Bilirubin 1.4H, Direct Bilirubin 0.9H, Aspartate Amino Transf (AST/SGOT) 121H, Alanine Aminotransferase (ALT/SGPT) 54, Alkaline Phosphatase 1562H, Total Protein 8.2, Albumin 1.9L, Globulin 6.3, Albumin/ Globulin Ratio 0.3L Height (Feet): 6 Height (Inches): 0.00 Weight (Pounds): 128 Objective debilitated coarse BS RRR soft ND NT no edema SIVA NAVARRO Sep 11, 2017 13:58
--- NOTE | 2017-09-11 14:10 | Infectious Diseases Prog Note ---
Assessment/Plan Assessment/Plan ASSESSMENT: The patient is a 62-year-old male with: Fever, improving leukocytosis improving - 09/07 CXR: Patchy streaky densities at the left lung base noted likely atelectasis. - CXR 09/02light interval increase in interstitial opacification/edema compared to the prior exam. -CXR 08/17: Interval expansion of the previously atelectatic right lung. Considerable infiltrate versus edema throughout the right lung. Increasing left basilar atelectasis and possibly infiltrate -CXR 08/16: Complete opacification right hemithorax. Probably due to atelectasis related to endobronchial occlusion at the level of the right mainstem bronchus. There may also be a significant component of pleural effusion. Diarrhea- Cdiff: neg PICC line infection with CoNS, -Bcx 08/21 Neg -s/p removal PICC 08/18; s/p new pICC line 08/25 -Bcx 08/15 1/ + PICC line, peripheral NTD; Bcx 08/18 : 2/4 CoNS; cath tip cx CoNS -echo 07/31: limited views, no obvious vegetations or significant valve abnormalities Recent Blood Cx: CoNS probable line infection (PICC from out side facility was removed on and replaced on 08/03 ) Pneum : sCx: GNR -CXR 08/22: Interim near complete opacification of the right lung, probably due to near complete right lung atelectasis, given evidence of bronchial occlusion and mediastinal shift indicating volume loss. Component of pleural fluid also possible,however.New or increased moderate left pleural effusion ? ventilatory-associated pneumonia Scx: MDR PSA (S gentamicin, Colistin), repeat sp cx 08/13 normal pipo- Low suspicion overall for TB CCT: Extensive interstitial opacities throughout the right lung as well as groundglass opacities. Large differential, suspect on the basis of pulmonary edema, particularly given evidence of edema elsewhere, but possibility of infection, including possible tuberculosis, should also be considered. Right lower lobe consolidation, may reflect pneumonia (chest x-ray:Considerably worse pleural and parenchymal disease on the right. Slightly worse in pleural and parenchymal disease on the left, over 3 days ) Influenza: Neg -AFB sp cx smear neg x3, cx p, MTB PCR neg -Blatomyces ab neg, CrAg neg, Histoplasma ID neg, CF not done due to anticomplement activity; Cocci ab pending -HIV ag/ab neg -TB spot + (suspect latent rather than active, final AFB cx pending), MTB PCR neg 09/09 UCx : yeast ( Colonizer ) Left heel unstageable decubitus (no purulent discharge.) probable osteo per bone scan -no wound cx obtained NM : flow, blood pool, static activity involving the calcaneal tuberosity on the left. 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 Cholelithiasis. 08/12 CT C/A/P : no abscess. Evidence of anasarca, with generalized edema of the subcutaneous fat,retroperitoneal and mesenteric fat, trace ascites, small left pleural effusion. -HIDA scan neg Clostridium difficile: Neg Pl effusion: exudate , Pr : 4.4 , cell count : 08/12 SP ultrasound-guided thoracentesis, of 400 cc BETSY Diabetes. Anemia. GERD. Hypertension. History of TBI. Seizure disorder PLAN: - cont Merrem and IV Vanco d# 10 / 10-14 09/03 SP PO Vancomycin 125mg qid Cdiff: neg 09/02 SP V Daptomycin and Ceftriaxone #26/42 and Flagyl #14 08/19 SP INH colistin / for MDR PsA PNA 08/18 SP IV Vancomycin #4 3/ SP Micafungin #5 08/15 SP Meropenem #10 3/ SP IV Colistin #9 3/4 SP vancomycin d# 9 and Zosyn and Gent d# 4 3/ SP cefepime day # 5 PICC line care Monitor chest x-ray f/u cocci ab, fungitell, AFB final cultures Monitor CBC panculture ( Bl, Ur ,SP ) Subjective Allergies: Coded Allergies: No Known Allergies (Unverified , 07/31/17) Subjective fever and WBC are improving Objective Vital Signs Last 24 Hour Vital Signs Date Time Temp Pulse Resp B/P (MAP) Pulse Ox O2 Delivery O2 Flow Rate FiO2 09/11/17 13:09 102 18 30 09/11/17 12:00 99.5 96 18 102/60 100 Mechanical Ventilator 30 99.5 09/11/17 12:00 30 09/11/17 10:51 96 18 30 09/11/17 08:53 95 18 30 09/11/17 08:00 94 09/11/17 08:00 100.0 94 18 102/65 100 Mechanical Ventilator 30 100.0 09/11/17 08:00 30 09/11/17 07:00 95 18 30 09/11/17 05:36 94 18 30 09/11/17 04:00 98.2 95 18 100/62 100 Mechanical Ventilator 30 98.2 09/11/17 04:00 30 09/11/17 03:24 95 18 30 09/11/17 02:58 98 09/11/17 01:34 99 21 30 09/11/17 00:00 92 09/11/17 00:00 98.2 93 18 99/62 100 Mechanical Ventilator 30 98.2 09/11/17 00:00 30 09/10/17 23:22 91 18 30 09/10/17 21:31 99 18 30 09/10/17 21:31 99 18 30 09/10/17 20:00 97.5 100 18 102/64 100 Mechanical Ventilator 30 97.5 09/10/17 20:00 30 09/10/17 19:55 94 18 30 09/10/17 19:24 95 09/10/17 17:17 101 18 30 09/10/17 16:00 102.0 105 18 60/72 100 Mechanical Ventilator 30 102.0 09/10/17 16:00 30 09/10/17 16:00 99.0 09/10/17 16:00 105 09/10/17 15:30 102.0 09/10/17 15:05 106 18 30 Height (Feet): 6 Height (Inches): 0.00 Weight (Pounds): 128 HEENT: anicteric Respiratory/Chest: normal breath sounds Cardiovascular: regularly irregular Abdomen: no organomegaly Microbiology Date/Time Source Procedure Growth Status 09/09/17 13:15 Blood Blood Culture - Preliminary NO GROWTH AFTER 24 HOURS Resulted 09/09/17 13:10 Blood Blood Culture - Preliminary NO GROWTH AFTER 24 HOURS Resulted 09/09/17 13:20 Sputum Gram Stain - Final Resulted 09/09/17 13:20 Sputum Culture - Preliminary Gram Negative Bacillus 1 Resulted 09/09/17 13:00 Stool Clostridium difficile Toxin Assay - Final Complete 09/10/17 03:00 Urine,Clean Catch Urine Culture - Preliminary YEAST Resulted Laboratory Tests Test 09/11/17 04:10 White Blood Count 10.9 K/UL (4.8-10.8) H Red Blood Count 2.94 M/UL (4.70-6.10) L Hemoglobin 8.7 G/DL (14.2-18.0) L Hematocrit 26.3 % (42.0-52.0) L Mean Corpuscular Volume 90 FL (80-99) Mean Corpuscular Hemoglobin 29.5 PG (27.0-31.0) Mean Corpuscular Hemoglobin Concent 32.9 G/DL (32.0-36.0) Red Cell Distribution Width 15.7 % (11.6-14.8) H Platelet Count 318 K/UL (150-450) Mean Platelet Volume 7.0 FL (6.5-10.1) Neutrophils (%) (Auto) 80.6 % (45.0-75.0) H Lymphocytes (%) (Auto) 10.7 % (20.0-45.0) L Monocytes (%) (Auto) 5.9 % (1.0-10.0) Eosinophils (%) (Auto) 2.1 % (0.0-3.0) Basophils (%) (Auto) 0.7 % (0.0-2.0) Prothrombin Time 13.6 SEC (9.30-11.50) H Prothromb Time International Ratio 1.3 (0.9-1.1) H Activated Partial Thromboplast Time 32 SEC (23-33) Sodium Level 143 MMOL/L (136-145) Potassium Level 4.3 MMOL/L (3.5-5.1) Chloride Level 112 MMOL/L (98-107) H Carbon Dioxide Level 20 MMOL/L (21-32) L Anion Gap 11 mmol/L (5-15) Blood Urea Nitrogen 51 mg/dL (7-18) H Creatinine 1.4 MG/DL (0.55-1.30) H Estimat Glomerular Filtration Rate 51.2 mL/min (>60) Glucose Level 100 MG/DL (74-106) Calcium Level 9.4 MG/DL (8.5-10.1) Phosphorus Level 4.3 MG/DL (2.5-4.9) Magnesium Level 2.1 MG/DL (1.8-2.4) Total Bilirubin 1.4 MG/DL (0.2-1.0) H Direct Bilirubin 0.9 MG/DL (0.0-0.3) H Aspartate Amino Transf (AST/SGOT) 121 U/L (15-37) H Alanine Aminotransferase (ALT/SGPT) 54 U/L (12-78) Alkaline Phosphatase 1562 U/L (46-116) H Total Protein 8.2 G/DL (6.4-8.2) Albumin 1.9 G/DL (3.4-5.0) L Globulin 6.3 g/dL Albumin/Globulin Ratio 0.3 (1.0-2.7) L Current Medications Medications (Trade) Dose Ordered Sig/Serena Route PRN Reason Start Time Stop Time Status Last Admin Dose Admin Amiodarone HCl (Cordarone) 200 mg EVERY 12 HOURS GT 08/28/17 09:00 09/27/17 09:00 09/11/17 10:24 Chlorhexidine Gluconate (Ngoc-Hex 2%) 1 applic DAILY@2000 TOPIC 08/24/17 20:00 09/23/17 19:59 09/10/17 20:48 Dextrose (Dextrose 50%) 25 ml STAT PRN IV HYPOGLYCEMIA 09/07/17 08:45 10/07/17 08:44 Dextrose (Dextrose 50%) 50 ml STAT PRN IV Hypoglycemia 09/07/17 08:45 09/29/17 09:29 Heparin Sodium (Porcine) (Heparin 5000 units/ml) 5,000 units EVERY 12 HOURS SUBQ 08/28/17 09:00 09/27/17 09:00 09/11/17 10:26 Levetiracetam (Keppra) 250 mg BID GT 08/28/17 09:00 09/27/17 09:00 09/11/17 10:24 Meropenem 1 gm/ Sodium Chloride 110 ml @ 220 mls/hr Q8HR IVPB 09/09/17 14:00 09/14/17 13:59 09/11/17 05:07 Ondansetron HCl (Zofran) 4 mg Q6H PRN IVP Nausea & Vomiting 08/28/17 08:30 09/27/17 08:29 Opium Tincture (Opium Tincture) 2 ml QID ORAL 09/09/17 15:30 09/16/17 15:29 09/11/17 13:42 Pantoprazole (Protonix) 40 mg DAILY IV 08/01/17 09:00 09/30/17 08:59 09/11/17 10:24 Polyethylene Glycol (Miralax) 17 gm DAILYPRN PRN ORAL Constipation 08/28/17 08:00 09/27/17 08:00 Vancomycin HCl (Vanco rx to dose) 1 ea DAILY PRN MISC Per rx protocol 09/09/17 12:30 10/09/17 12:29 Vancomycin/Sodium Chloride 250 ml @ 166.667 mls/hr Q24H IVPB 09/09/17 15:00 09/14/17 14:59 09/10/17 15:01 Norman Chen MD Sep 11, 2017 14:10
[2017-09-11 16:00] VITALS: BP 116/66
[2017-09-11 20:00] VITALS: BP 100/70
[2017-09-11] MEDS: Dyna-Hex 2% Top Sol 2oz TOPIC SCH (20:48)
--- NOTE | 2017-09-11 23:43 | General Progress Note ---
Assessment/Plan Assessment/Plan #. Leukocytosis, likely secondary to urinary tract infection. --> On broad-spectrum antibiotics. --> Monitor closely. --> Has improved from yesterday. #. Sepsis --> On vancomycin. --> Wbc count downtrended and improved. #. Anemia of chronic disease. Monitor closely. --> ESR 134. Hemoglobin has been above goal. --> Anemia workup reviewed. --> Iron 37, TIBC 99, Vit B12 535, Folate 11.4 --> Blood transfusion not required unless symptomatic or hgb below 7. --> Hemoglobin levels have been stable. #. Coagulopathy. Likely due to decreased vitamin K intake. Imaging reviewed. --> Prominent pancreas, calcification is noted. --> On anticoagulation -- heparin sq #. Dysphagia, status post percutaneous endoscopic gastrostomy tube. #. Cholelithiasis is noted on ultrasound. Borderline diabetic --> HIDA scan is negative. #. Transaminitis has since improved, potentially secondary to medications v other causes #. Wound care. Pressure ulcer. #. Ventilator-associated pneumonia. --> On vent and abx --> Tachycardia improved. --> Contracted. #. G-tube feeding. Subjective Date patient seen: Sep 10, 2017 Constitutional: Denies: no symptoms, chills, diaphoresis, fever, malaise, weakness, other HEENT: Denies: no symptoms, eye pain, blurred vision, tearing, double vision, ear pain, ear discharge, nose pain, nose congestion, throat pain, throat swelling, mouth pain, mouth swelling, other Cardiovascular: Denies: no symptoms, chest pain, edema, irregular heart rate, lightheadedness, palpitations, syncope, other Respiratory: Denies: no symptoms, cough, orthopnea, shortness of breath, SOB with excertion, SOB at rest, sputum, stridor, wheezing, other Gastrointestinal/Abdominal: Denies: no symptoms, abdomen distended, abdominal pain, black stools, tarry stools, blood in stool, constipated, diarrhea, difficulty swallowing, nausea, poor appetite, poor fluid intake, rectal bleeding , vomiting, other Genitourinary: Denies: no symptoms, burning, discharge, frequency, flank pain, hematuria, incontinence, pain, urgency, other Neurologic/Psychiatric: Denies: no symptoms, anxiety, depressed, emotional problems, headache, numbness, paresthesia, pre-existing deficit, seizure, tingling, tremors, weakness, other Hematologic/Lymphatic: Reports: anemia Allergies: Coded Allergies: No Known Allergies (Unverified , 07/31/17) Subjective Nonverbal. Wbc downtrending. On tube feeds. Objective Last 24 Hour Vital Signs Date Time Temp Pulse Resp B/P (MAP) Pulse Ox O2 Delivery O2 Flow Rate FiO2 09/11/17 23:05 100 18 30 09/11/17 22:12 101 18 30 09/11/17 20:31 101 18 30 09/11/17 20:00 30 09/11/17 20:00 97.7 98 18 100/70 100 Mechanical Ventilator 30 97.7 09/11/17 19:37 98 09/11/17 17:26 102 18 30 09/11/17 16:47 97 09/11/17 16:00 99.1 97 18 116/66 100 Mechanical Ventilator 30 99.1 09/11/17 16:00 30 09/11/17 14:56 98 18 30 09/11/17 13:09 102 18 30 09/11/17 12:00 99.5 96 18 102/60 100 Mechanical Ventilator 30 99.5 09/11/17 12:00 30 09/11/17 11:48 96 09/11/17 10:51 96 18 30 09/11/17 08:53 95 18 30 09/11/17 08:00 94 09/11/17 08:00 100.0 94 18 102/65 100 Mechanical Ventilator 30 100.0 09/11/17 08:00 30 09/11/17 07:00 95 18 30 09/11/17 05:36 94 18 30 09/11/17 04:00 98.2 95 18 100/62 100 Mechanical Ventilator 30 98.2 09/11/17 04:00 30 09/11/17 03:24 95 18 30 09/11/17 02:58 98 09/11/17 01:34 99 21 30 09/11/17 00:00 92 09/11/17 00:00 98.2 93 18 99/62 100 Mechanical Ventilator 30 98.2 09/11/17 00:00 30 Intake and Output 09/10/17 09/11/17 19:00 07:00 Intake Total 450.000 ml 540 ml Output Total 520 ml 330 ml Balance -70.000 ml 210 ml Free Water 30 ml 100 ml IV Total 360.000 ml 440 ml Other 60 ml Output Urine Total 450 ml 300 ml Stool Total 70 ml 30 ml Laboratory Tests 09/11/17 04:10: White Blood Count 10.9H, Red Blood Count 2.94L, Hemoglobin 8.7L, Hematocrit 26.3L, Mean Corpuscular Volume 90, Mean Corpuscular Hemoglobin 29.5, Mean Corpuscular Hemoglobin Concent 32.9, Red Cell Distribution Width 15.7H, Platelet Count 318, Mean Platelet Volume 7.0, Neutrophils (%) (Auto) 80.6H, Lymphocytes (%) (Auto) 10.7L, Monocytes (%) (Auto) 5.9, Eosinophils (%) (Auto) 2.1, Basophils (%) (Auto) 0.7, Prothrombin Time 13.6H, Prothromb Time International Ratio 1.3H, Activated Partial Thromboplast Time 32, Sodium Level 143, Potassium Level 4.3, Chloride Level 112H, Carbon Dioxide Level 20L, Anion Gap 11, Blood Urea Nitrogen 51H, Creatinine 1.4H, Estimat Glomerular Filtration Rate 51.2, Glucose Level 100, Calcium Level 9.4, Phosphorus Level 4.3, Magnesium Level 2.1, Total Bilirubin 1.4H, Direct Bilirubin 0.9H, Aspartate Amino Transf (AST/SGOT) 121H, Alanine Aminotransferase (ALT/SGPT) 54, Alkaline Phosphatase 1562H, Total Protein 8.2, Albumin 1.9L, Globulin 6.3, Albumin/ Globulin Ratio 0.3L 09/11/17 13:50: Vancomycin Level Trough 23.8H Height (Feet): 6 Height (Inches): 0.00 Weight (Pounds): 128 General Appearance: lethargic Respiratory/Chest: decreased breath sounds López Vásquez MD Sep 11, 2017 23:43
[2017-09-12] VITALS (9 sets, daily range): BP systolic 97–128; BP diastolic 61–89
--- NOTE | 2017-09-12 02:01 | General Progress Note ---
Assessment/Plan Assessment/Plan #. Leukocytosis, likely secondary to urinary tract infection. --> On broad-spectrum antibiotics. --> Monitor closely. --> Has improved from yesterday. Mild at this time. #. Sepsis --> On vancomycin. --> Wbc count downtrended and improved. #. Anemia of chronic disease. Monitor closely. --> ESR 134. Hemoglobin has been above goal. --> Anemia workup reviewed. --> Iron 37, TIBC 99, Vit B12 535, Folate 11.4 --> Blood transfusion not required unless symptomatic or hgb below 7. --> Hemoglobin levels have been stable. #. Coagulopathy. Likely due to decreased vitamin K intake. Imaging reviewed. --> Prominent pancreas, calcification is noted. --> On anticoagulation -- heparin sq #. Dysphagia, status post percutaneous endoscopic gastrostomy tube. #. Cholelithiasis is noted on ultrasound. Borderline diabetic --> HIDA scan is negative. #. Transaminitis has since improved, potentially secondary to medications v other causes #. Wound care. Pressure ulcer. #. Ventilator-associated pneumonia. --> On vent and abx --> Tachycardia improved. --> Contracted. #. G-tube feeding. Subjective Date patient seen: Sep 11, 2017 Constitutional: Denies: no symptoms, chills, diaphoresis, fever, malaise, weakness, other HEENT: Denies: no symptoms, eye pain, blurred vision, tearing, double vision, ear pain, ear discharge, nose pain, nose congestion, throat pain, throat swelling, mouth pain, mouth swelling, other Cardiovascular: Denies: no symptoms, chest pain, edema, irregular heart rate, lightheadedness, palpitations, syncope, other Respiratory: Denies: no symptoms, cough, orthopnea, shortness of breath, SOB with excertion, SOB at rest, sputum, stridor, wheezing, other Gastrointestinal/Abdominal: Denies: no symptoms, abdomen distended, abdominal pain, black stools, tarry stools, blood in stool, constipated, diarrhea, difficulty swallowing, nausea, poor appetite, poor fluid intake, rectal bleeding , vomiting, other Genitourinary: Denies: no symptoms, burning, discharge, frequency, flank pain, hematuria, incontinence, pain, urgency, other Neurologic/Psychiatric: Denies: no symptoms, anxiety, depressed, emotional problems, headache, numbness, paresthesia, pre-existing deficit, seizure, tingling, tremors, weakness, other Hematologic/Lymphatic: Reports: anemia Allergies: Coded Allergies: No Known Allergies (Unverified , 07/31/17) Subjective Obtunded. On vanco. Mild leukocytosis. Objective Last 24 Hour Vital Signs Date Time Temp Pulse Resp B/P (MAP) Pulse Ox O2 Delivery O2 Flow Rate FiO2 09/12/17 01:02 91 18 30 09/11/17 23:50 93 09/11/17 23:05 100 18 30 09/11/17 22:12 101 18 30 09/11/17 20:31 101 18 30 09/11/17 20:00 30 09/11/17 20:00 97.7 98 18 100/70 100 Mechanical Ventilator 30 97.7 09/11/17 19:37 98 09/11/17 17:26 102 18 30 09/11/17 16:47 97 09/11/17 16:00 99.1 97 18 116/66 100 Mechanical Ventilator 30 99.1 09/11/17 16:00 30 09/11/17 14:56 98 18 30 09/11/17 13:09 102 18 30 09/11/17 12:00 99.5 96 18 102/60 100 Mechanical Ventilator 30 99.5 09/11/17 12:00 30 09/11/17 11:48 96 09/11/17 10:51 96 18 30 09/11/17 08:53 95 18 30 09/11/17 08:00 94 09/11/17 08:00 100.0 94 18 102/65 100 Mechanical Ventilator 30 100.0 09/11/17 08:00 30 09/11/17 07:00 95 18 30 09/11/17 05:36 94 18 30 09/11/17 04:00 98.2 95 18 100/62 100 Mechanical Ventilator 30 98.2 09/11/17 04:00 30 09/11/17 03:24 95 18 30 09/11/17 02:58 98 Intake and Output 09/11/17 09/12/17 19:00 07:00 Intake Total 200 ml 220 ml Output Total 600 ml Balance -400 ml 220 ml Free Water 50 ml IV Total 110 ml 220 ml Tube Feeding 0 ml 0 ml Other 40 ml Output Urine Total 500 ml Stool Total 100 ml Laboratory Tests 09/11/17 04:10: White Blood Count 10.9H, Red Blood Count 2.94L, Hemoglobin 8.7L, Hematocrit 26.3L, Mean Corpuscular Volume 90, Mean Corpuscular Hemoglobin 29.5, Mean Corpuscular Hemoglobin Concent 32.9, Red Cell Distribution Width 15.7H, Platelet Count 318, Mean Platelet Volume 7.0, Neutrophils (%) (Auto) 80.6H, Lymphocytes (%) (Auto) 10.7L, Monocytes (%) (Auto) 5.9, Eosinophils (%) (Auto) 2.1, Basophils (%) (Auto) 0.7, Prothrombin Time 13.6H, Prothromb Time International Ratio 1.3H, Activated Partial Thromboplast Time 32, Sodium Level 143, Potassium Level 4.3, Chloride Level 112H, Carbon Dioxide Level 20L, Anion Gap 11, Blood Urea Nitrogen 51H, Creatinine 1.4H, Estimat Glomerular Filtration Rate 51.2, Glucose Level 100, Calcium Level 9.4, Phosphorus Level 4.3, Magnesium Level 2.1, Total Bilirubin 1.4H, Direct Bilirubin 0.9H, Aspartate Amino Transf (AST/SGOT) 121H, Alanine Aminotransferase (ALT/SGPT) 54, Alkaline Phosphatase 1562H, Total Protein 8.2, Albumin 1.9L, Globulin 6.3, Albumin/ Globulin Ratio 0.3L 09/11/17 13:50: Vancomycin Level Trough 23.8H Height (Feet): 6 Height (Inches): 0.00 Weight (Pounds): 128 General Appearance: confused Respiratory/Chest: decreased breath sounds López Vásquez MD Sep 12, 2017 02:01
[2017-09-12 04:18] LABS: HEMATOCRIT 23.6 % (42.0-52.0); HEMOGLOBIN 7.6 G/DL (14.2-18.0); MEAN CORPUSCULAR VOLUME 90 FL (80-99); PLATELET COUNT 309 K/UL (150-450); RED BLOOD COUNT 2.64 M/UL (4.70-6.10); RED CELL DISTRIBUTION WIDTH 15.4 % (11.6-14.8); WHITE BLOOD COUNT 10.3 K/UL (4.8-10.8)
[2017-09-12 04:51] LABS: ALANINE AMINOTRANSFERASE 51 U/L (12-78); ALBUMIN/GLOBULIN RATIO 0.3 (1.0-2.7); ALKALINE PHOSPHATASE 1683 U/L (46-116); ANION GAP 13 mmol/L (5-15); ASPARTATE AMINO TRANSFERASE 103 U/L (15-37); BLOOD UREA NITROGEN 50 mg/dL (7-18); CALCIUM 9.6 MG/DL (8.5-10.1); CARBON DIOXIDE 18 MMOL/L (21-32); CHLORIDE 114 MMOL/L (98-107); CREATININE 1.4 MG/DL (0.55-1.30); SODIUM 145 MMOL/L (136-145)
[2017-09-12] MEDS: Meropenem 1 GM in NS 110 ML IVPB SCH ×3 (05:08→21:55)
[2017-09-12 06:18] LABS: INR 1.3 (0.9-1.1)
[2017-09-12] MEDS: Pantoprazole Inj IV SCH (09:00)
[2017-09-12] MEDS: OPIUM ORAL SCH ×4 (09:00→21:57)
[2017-09-12] MEDS: Heparin 5000 units/ml inj SUBQ SCH ×2 (09:00→22:00)
[2017-09-12] MEDS: levETIRAcetam 500mg/5ml Liquid GT SCH ×2 (09:00→19:39)
[2017-09-12] MEDS: Amiodarone 200mg tab GT SCH ×2 (09:00→21:55)
--- NOTE | 2017-09-12 09:30 | Pre-Procedure Note/Attestation ---
Pre-Procedure Note/Attestation Complete Prior to Procedure Planned Procedure: not applicable Procedure Narrative: ercp Indications for Procedure Pre-Operative Diagnosis: dilated CBD Attestation I attest that I discussed the nature of the procedure; its benefits; risks and complications; and alternatives (and the risks and benefits of such alternatives ), prior to the procedure, with the patient (or the patient's legal sales representative). I attest that, if there was a reasonable possibility of needing a blood transfusion, the patient (or the patient's legal sales representative) was given the [facility] standardized written summary, pursuant to the Uziel Garwin Blood Safety Act ([place] Health and Safety Code # 1645, as amended). I attest that I re-evaluated the patient just prior to the surgery and that there has been no change in the patient's H&P, except as documented below: ZAID BLUM Sep 12, 2017 09:30
--- NOTE | 2017-09-12 10:53 | Diagnostic Imaging Report ---
Indication: Dyspnea Comparison: 09/10/2017 A single view chest radiograph was obtained. Findings: Heart size remains normal. Tracheostomy noted. PICC line is stable. Left basilar scarring versus atelectasis may be present. IMPRESSION: No significant change
[2017-09-12] MEDS ORDERED: NS 500ML IV ONE (10:55)
--- NOTE | 2017-09-12 10:56 | Pulmonolgy Critical Care Note ---
Critical Care - Asmt/Plan Problems: (1) Sepsis (2) Chronic respiratory failure (3) UTI (urinary tract infection) (4) Feeding by G-tube (5) Pressure ulcer Assessment & Plan: still large amount of diarrhea, despite Tincture of Opium around the clock. feeding on hold Respiratory: monitor respiratory rate, adjust FIO2, CXR Cardiac: start pressors, continue to monitor HR/BP Renal: F/U I&O, keep IV fluid Infectious Disease: continue antibiotics Gastrointestinal: hold feedings Endocrine: monitor blood sugar, check HgA1C, continue sliding scale insulin Hematologic: transfuse if hgb<8.5 Neurologic: PRN Ativan, PRN Morphine, keep patient comfortable Prophylaxis: Heparin Notes Reviewed: hand hose cutter, renal Discussed with: nurses, consultants, case consultantfield care manager - Objective Last 24 Hour Vital Signs Date Time Temp Pulse Resp B/P (MAP) Pulse Ox O2 Delivery O2 Flow Rate FiO2 09/12/17 09:24 86 20 30 09/12/17 08:00 98.5 82 24 114/70 100 Mechanical Ventilator 30 98.5 09/12/17 08:00 80 09/12/17 07:25 88 21 30 09/12/17 05:20 87 23 30 09/12/17 04:00 92 09/12/17 04:00 30 09/12/17 04:00 97.9 84 24 105/64 100 Mechanical Ventilator 30 97.9 09/12/17 02:49 89 18 30 09/12/17 01:02 91 18 30 09/12/17 00:00 30 09/12/17 00:00 98.2 94 18 97/73 100 Mechanical Ventilator 30 98.2 09/11/17 23:50 93 09/11/17 23:05 100 18 30 09/11/17 22:12 101 18 30 09/11/17 20:31 101 18 30 09/11/17 20:00 30 09/11/17 20:00 97.7 98 18 100/70 100 Mechanical Ventilator 30 97.7 09/11/17 19:37 98 09/11/17 17:26 102 18 30 09/11/17 16:47 97 09/11/17 16:00 99.1 97 18 116/66 100 Mechanical Ventilator 30 99.1 09/11/17 16:00 30 09/11/17 14:56 98 18 30 09/11/17 13:09 102 18 30 09/11/17 12:00 99.5 96 18 102/60 100 Mechanical Ventilator 30 99.5 09/11/17 12:00 30 09/11/17 11:48 96 Status: awake Condition: critical HEENT: atraumatic Lungs: clear, chest wall tender Heart: HR/BP stable, HR/BP unstable Abdomen: soft, active bowel sounds Extremities: no C/C/E Decubiti: location Micro: Microbiology Date/Time Source Procedure Growth Status 09/09/17 13:15 Blood Blood Culture - Preliminary NO GROWTH AFTER 48 HOURS Resulted 09/09/17 13:10 Blood Blood Culture - Preliminary NO GROWTH AFTER 48 HOURS Resulted 09/09/17 13:20 Sputum Gram Stain - Final Resulted 09/09/17 13:20 Sputum Culture - Preliminary Pseudomonas Aeruginosa - Mdr Resulted 09/09/17 13:00 Stool Clostridium difficile Toxin Assay - Final Complete 09/10/17 03:00 Urine,Clean Catch Urine Culture - Final Diann Albicans Complete Accucheck: 131 Critical Care - Subjective ROS Limited/Unobtainable: No Condition: critical, grave EKG Rhythm: Sinus Rhythm FI02: 30 Vent Support Breath Rate: 18 Vent Support Mode: AC Vent Tidal Volume: 550 Sputum Amount: Moderate PEEP: 5.0 PIP: 23 Tube Feeding Amount: 55 I&O: Intake and Output 09/11/17 09/12/17 19:00 07:00 Intake Total 150 ml 540 ml Output Total 600 ml 350 ml Balance -450 ml 190 ml Free Water 100 ml IV Total 110 ml 440 ml Other 40 ml Output Urine Total 500 ml 350 ml Stool Total 100 ml 0 ml Labs: Laboratory Tests Test 09/11/17 13:50 09/12/17 04:00 09/12/17 04:30 Vancomycin Level Trough 23.8 ug/mL (5.0-12.0) H White Blood Count 10.3 K/UL (4.8-10.8) Red Blood Count 2.64 M/UL (4.70-6.10) L Hemoglobin 7.6 G/DL (14.2-18.0) L Hematocrit 23.6 % (42.0-52.0) L Mean Corpuscular Volume 90 FL (80-99) Mean Corpuscular Hemoglobin 28.9 PG (27.0-31.0) Mean Corpuscular Hemoglobin Concent 32.3 G/DL (32.0-36.0) Red Cell Distribution Width 15.4 % (11.6-14.8) H Platelet Count 309 K/UL (150-450) Mean Platelet Volume 7.0 FL (6.5-10.1) Neutrophils (%) (Auto) % (45.0-75.0) Lymphocytes (%) (Auto) % (20.0-45.0) Monocytes (%) (Auto) % (1.0-10.0) Eosinophils (%) (Auto) % (0.0-3.0) Basophils (%) (Auto) % (0.0-2.0) Differential Total Cells Counted 100 Neutrophils % (Manual) 72 % (45-75) Lymphocytes % (Manual) 19 % (20-45) L Monocytes % (Manual) 8 % (1-10) Eosinophils % (Manual) 1 % (0-3) Basophils % (Manual) 0 % (0-2) Band Neutrophils 0 % (0-8) Platelet Estimate Adequate Platelet Morphology Normal Sodium Level 145 MMOL/L (136-145) Potassium Level 4.0 MMOL/L (3.5-5.1) Chloride Level 114 MMOL/L (98-107) H Carbon Dioxide Level 18 MMOL/L (21-32) L Anion Gap 13 mmol/L (5-15) Blood Urea Nitrogen 50 mg/dL (7-18) H Creatinine 1.4 MG/DL (0.55-1.30) H Estimat Glomerular Filtration Rate 51.2 mL/min (>60) Glucose Level 104 MG/DL (74-106) Calcium Level 9.6 MG/DL (8.5-10.1) Total Bilirubin 1.0 MG/DL (0.2-1.0) Aspartate Amino Transf (AST/SGOT) 103 U/L (15-37) H Alanine Aminotransferase (ALT/SGPT) 51 U/L (12-78) Alkaline Phosphatase 1683 U/L (46-116) H Pro-B-Type Natriuretic Peptide 482 pg/mL (0-125) H Total Protein 8.4 G/DL (6.4-8.2) H Albumin 2.0 G/DL (3.4-5.0) L Globulin 6.4 g/dL Albumin/Globulin Ratio 0.3 (1.0-2.7) L Prothrombin Time 14.0 SEC (9.30-11.50) H Prothromb Time International Ratio 1.3 (0.9-1.1) H Activated Partial Thromboplast Time 31 SEC (23-33) Ernestina James MD Sep 12, 2017 10:56
[2017-09-12] MEDS ORDERED: Lidocaine 1% MPF 10mg/ml 5ml ONE (11:00)
[2017-09-12] MEDS ORDERED: Propofol 200mg/20ml IV ONE (11:00)
[2017-09-12] MEDS ORDERED: Midazolam 2mg/2ml Inj ONE (11:00)
[2017-09-12] MEDS ORDERED: LR 1000ml ONE (11:00)
--- NOTE | 2017-09-12 11:23 | Anethesia Preoperative Eval ---
Anesthesia Pre-op PMH/ROS General Date of Evaluation: Sep 12, 2017 Time of Evaluation: 10:53 Anesthesiologist: Saravanan ASA Score: ASA 4 Mallampati Score Class I : Soft palate, uvula, fauces, pillars visible Class II: Soft palate, uvula, fauces visible Class III: Soft palate, base of uvula visible Class IV: Only hard plate visible Mallampati Classification: Class III Surgeon: Roman Diagnosis: Abd Pain Surgical Procedure: EUA, G-tube Placement Anesthesia History: none Family History: no anesthesia problems Allergies: Coded Allergies: No Known Allergies (Unverified , 07/31/17) Medications: see eMAR Past Medical History Cardiovascular: Reports: HTN, CAD, [place] Pulmonary: Reports: other - Trach, Vent Dept Gastrointestinal/Genitourinary: Reports: GERD Neurologic/Psychiatric: Reports: dementia Endocrine: Reports: DM Hematology/Immune: Reports: anemia PSxH Narrative: G-Tube, Trach Anesthesia Pre-op Phys. Exam Physician Exam Last Vital Signs Date Time Temp Pulse Resp B/P (MAP) Pulse Ox O2 Delivery O2 Flow Rate FiO2 09/12/17 09:24 86 20 30 09/12/17 08:00 98.5 114/70 100 Mechanical Ventilator 98.5 Constitutional: NAD Neurologic: CN 2-12 intact Cardiovascular: RRR Respiratory: CTA Gastrointestinal: S/NT/ND Airway Exam Mallampati Classification ASA 4 Mallampati Score: Class III MO: limited ROM: limited Teeth: missing Anesthesia Pre-op A/P Labs Hematology Test 09/12/17 04:00 White Blood Count 10.3 K/UL (4.8-10.8) Red Blood Count 2.64 M/UL (4.70-6.10) L Hemoglobin 7.6 G/DL (14.2-18.0) L Hematocrit 23.6 % (42.0-52.0) L Mean Corpuscular Volume 90 FL (80-99) Mean Corpuscular Hemoglobin 28.9 PG (27.0-31.0) Mean Corpuscular Hemoglobin Concent 32.3 G/DL (32.0-36.0) Red Cell Distribution Width 15.4 % (11.6-14.8) H Platelet Count 309 K/UL (150-450) Mean Platelet Volume 7.0 FL (6.5-10.1) Neutrophils (%) (Auto) % (45.0-75.0) Lymphocytes (%) (Auto) % (20.0-45.0) Monocytes (%) (Auto) % (1.0-10.0) Eosinophils (%) (Auto) % (0.0-3.0) Basophils (%) (Auto) % (0.0-2.0) Differential Total Cells Counted 100 Neutrophils % (Manual) 72 % (45-75) Lymphocytes % (Manual) 19 % (20-45) L Monocytes % (Manual) 8 % (1-10) Eosinophils % (Manual) 1 % (0-3) Basophils % (Manual) 0 % (0-2) Band Neutrophils 0 % (0-8) Platelet Estimate Adequate Platelet Morphology Normal Coagulation Test 09/12/17 04:30 Prothrombin Time 14.0 SEC (9.30-11.50) H Prothromb Time International Ratio 1.3 (0.9-1.1) H Activated Partial Thromboplast Time 31 SEC (23-33) Chemistry Test 09/12/17 04:00 Sodium Level 145 MMOL/L (136-145) Potassium Level 4.0 MMOL/L (3.5-5.1) Chloride Level 114 MMOL/L (98-107) H Carbon Dioxide Level 18 MMOL/L (21-32) L Anion Gap 13 mmol/L (5-15) Blood Urea Nitrogen 50 mg/dL (7-18) H Creatinine 1.4 MG/DL (0.55-1.30) H Estimat Glomerular Filtration Rate 51.2 mL/min (>60) Glucose Level 104 MG/DL (74-106) Calcium Level 9.6 MG/DL (8.5-10.1) Total Bilirubin 1.0 MG/DL (0.2-1.0) Aspartate Amino Transf (AST/SGOT) 103 U/L (15-37) H Alanine Aminotransferase (ALT/SGPT) 51 U/L (12-78) Alkaline Phosphatase 1683 U/L (46-116) H Pro-B-Type Natriuretic Peptide 482 pg/mL (0-125) H Total Protein 8.4 G/DL (6.4-8.2) H Albumin 2.0 G/DL (3.4-5.0) L Globulin 6.4 g/dL Albumin/Globulin Ratio 0.3 (1.0-2.7) L Risk Assessment & Plan Assessment: ASA 4 Plan: GA Status Change Before Surgery: Mitul Paul MD Sep 12, 2017 11:23
--- NOTE | 2017-09-12 11:25 | Immediate Post-Op Evaluation ---
Immediate Post-Op Evalulation Immediate Post-Op Evalulation Procedure: EUA, G-Tube Placement Date of Evaluation: Sep 12, 2017 Time of Evaluation: 12:35 IV Fluids: 300 LR Blood Products: 0 Estimated Blood Loss: 8 Urinary Output: 0 Blood Pressure Systolic: 126 Blood Pressure Diastolic: 87 Pulse Rate: 84 Respiratory Rate: 20 - Mech Vent O2 Sat by Pulse Oximetry: 100 Temperature (Fahrenheit): 97 Pain Score (1-10): 0 Nausea: No Vomiting: No Complications 0 Patient Status: no response, ventilated, none Hydration Status: adequate Mitul Coe MD Sep 12, 2017 11:25
--- NOTE | 2017-09-12 11:25 | 48 Hour Post Anesthesia Eval ---
Post Anesthesia Evaluation Procedure: EUA, G-Tube Placement Date of Evaluation: Sep 12, 2017 Time of Evaluation: 14:43 Blood Pressure Systolic: 122 0: 84 Pulse Rate: 85 Respiratory Rate: 20 - Mech Vent Temperature (Fahrenheit): 97 O2 Sat by Pulse Oximetry: 100 Airway: patent Nausea: No Vomiting: No Pain Intensity: 0 Hydration Status: adequate Cardiopulmonary Status: Stable Mental Status/LOC: patient returned to baseline Follow-up Care/Observations: 0 Post-Anesthesia Complications: 0 Follow-up care needed: N/A Mitul Coe MD Sep 12, 2017 11:25
--- NOTE | 2017-09-12 11:56 | Endoscopy Procedure Note ---
Endoscopy Procedure Note General Indication for Procedure: elevated ALP Procedures Performed: EGD, PEG, other - EUS Operative Findings/Diagnosis: dilated CBD and PD Specimen: yes Pt Tolerated Procedure Well: Yes Estimated Blood Loss: none Anesthesia Anesthesiologist: héctor Anesthesia: MAC Inserted Devices Implant(s) used?: No GI Core Measures 50 yrs or older w/o bx or poly: Not Applicable 10yrs. F/U not recommended: Not Applicable ZAID BLUM Sep 12, 2017 11:56
[2017-09-12] MEDS ORDERED: LR 1000ml 1,000 ML IVLG SCH (12:00)
[2017-09-12] MEDS ORDERED: HYDROcodone/Acetamin 7.5/325 tab ORAL PRN (12:00)
[2017-09-12] MEDS ORDERED: LORazepam Inj 2mg/ml 1ml IV PRN (12:00)
[2017-09-12] MEDS ORDERED: Norco 5mg/325mg tab ORAL PRN (12:00)
[2017-09-12] MEDS ORDERED: DiphenhydrAMINE 50mg/ml Inj IVP PRN (12:00)
[2017-09-12] MEDS ORDERED: Midazolam 2mg/2ml Inj IVP PRN (12:00)
[2017-09-12] MEDS ORDERED: Labetalol 5mg/ml 20ml vial IV PRN (12:00)
[2017-09-12] MEDS ORDERED: oxyCODONE HCL/Acetaminophen 5/325mg ORAL PRN (12:00)
[2017-09-12] MEDS ORDERED: fentaNYL 100 mcg/2 mL IV PRN (12:00)
[2017-09-12] MEDS ORDERED: Atropine Inj 1mg/10ml Syr IV PRN (12:00)
[2017-09-12] MEDS ORDERED: Hydromorphone 0.5mg/0.5ml inj IVP PRN (12:00)
[2017-09-12] MEDS: Vancomycin 750mg/NS 250ml IVPB SCH (15:06)
--- NOTE | 2017-09-12 17:37 | Infectious Diseases Prog Note ---
Assessment/Plan Assessment/Plan ASSESSMENT: The patient is a 62-year-old male with: Fever, SP leukocytosis, SP UCx Diann : colonizer doubt Pneum : sCx: MDR PSA ( colonizer ) - 09/07 CXR: Left basilarscarring versus atelectasis may be present.. Diarrhea- Cdiff: neg PICC line infection with CoNS, SP Rx -Bcx 08/21 Neg -s/p removal PICC 08/18; s/p new pICC line 08/25 -Bcx 08/15 06/07 + PICC line, peripheral NTD; Bcx 08/18 : 2/4 CoNS; cath tip cx CoNS -echo 07/31: limited views, no obvious vegetations or significant valve abnormalities Recent Blood Cx: CoNS probable line infection (PICC from out side facility was removed on and replaced on 08/03 ) Influenza: Neg -AFB sp cx smear neg x3, cx p, MTB PCR neg -Blatomyces ab neg, CrAg neg, Histoplasma ID neg, CF not done due to anticomplement activity; Cocci ab pending -HIV ag/ab neg -TB spot + (suspect latent rather than active, final AFB cx pending), MTB PCR neg 09/09 UCx : yeast ( Colonizer ) Left heel unstageable decubitus (no purulent discharge.) probable osteo per bone scan -no wound cx obtained NM : flow, blood pool, static activity involving the calcaneal tuberosity on the left. 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 Cholelithiasis. 08/12 CT C/A/P : no abscess. Evidence of anasarca, with generalized edema of the subcutaneous fat,retroperitoneal and mesenteric fat, trace ascites, small left pleural effusion. -HIDA scan neg Clostridium difficile: Neg 09/[address] SP [address] and ERCP Pl effusion: exudate , Pr : 4.4 , cell count : 08/12 SP ultrasound-guided thoracentesis, of 400 cc BETSY Diabetes. Anemia. GERD. Hypertension. History of TBI. Seizure disorder PLAN: - cont Merrem and IV Vanco d# / -14 09/03 SP PO Vancomycin 125mg qid Cdiff: neg 09/02 SP V Daptomycin and Ceftriaxone #26/42 and Flagyl #14 08/19 SP INH colistin / for MDR PsA PNA 08/18 SP IV Vancomycin #4 313 SP Micafungin #5 312 SP Meropenem #10 3/11 SP IV Colistin #9 3/4 SP vancomycin d# 9 and Zosyn and Gent d# 4 3/ SP cefepime day # 5 PICC line care Monitor chest x-ray f/u cocci ab, fungitell, AFB final cultures Monitor CBC panculture ( Bl, ) 09/12 SP PEG and ERCP report : P Subjective Allergies: Coded Allergies: No Known Allergies (Unverified , 07/31/17) Subjective afebrile Objective Vital Signs Last 24 Hour Vital Signs Date Time Temp Pulse Resp B/P (MAP) Pulse Ox O2 Delivery O2 Flow Rate FiO2 09/12/17 16:32 87 22 30 09/12/17 16:00 98.1 85 27 121/61 100 Mechanical Ventilator 30 98.1 09/12/17 14:46 89 18 30 09/12/17 12:42 30 09/12/17 12:40 97.0 84 15 124/78 100 Mechanical Ventilator 30 97.0 09/12/17 12:31 87 18 30 09/12/17 12:24 85 16 128/82 100 Mechanical Ventilator 30 09/12/17 12:19 86 15 128/89 100 Mechanical Ventilator 30 09/12/17 12:16 206.6 85 20 100 09/12/17 12:15 206.6 84 20 100 09/12/17 12:14 97.0 85 24 126/87 100 Mechanical Ventilator 30 97.0 09/12/17 12:14 30 09/12/17 10:30 88 20 30 09/12/17 09:24 86 20 30 09/12/17 08:00 98.5 82 24 114/70 100 Mechanical Ventilator 30 98.5 09/12/17 08:00 80 09/12/17 07:25 88 21 30 09/12/17 05:20 87 23 30 09/12/17 04:00 92 09/12/17 04:00 30 09/12/17 04:00 97.9 84 24 105/64 100 Mechanical Ventilator 30 97.9 09/12/17 02:49 89 18 30 09/12/17 01:02 91 18 30 09/12/17 00:00 30 09/12/17 00:00 98.2 94 18 97/73 100 Mechanical Ventilator 30 98.2 09/11/17 23:50 93 09/11/17 23:05 100 18 30 09/11/17 22:12 101 18 30 09/11/17 20:31 101 18 30 09/11/17 20:00 30 09/11/17 20:00 97.7 98 18 100/70 100 Mechanical Ventilator 30 97.7 09/11/17 19:37 98 Height (Feet): 6 Height (Inches): 0.00 Weight (Pounds): 113 HEENT: anicteric Respiratory/Chest: no respiratory distress Cardiovascular: regularly irregular Abdomen: no organomegaly Microbiology Date/Time Source Procedure Growth Status 09/10/17 03:00 Urine,Clean Catch Urine Culture - Final Diann Albicans Complete Laboratory Tests Test 09/12/17 04:00 09/12/17 04:30 White Blood Count 10.3 K/UL (4.8-10.8) Red Blood Count 2.64 M/UL (4.70-6.10) L Hemoglobin 7.6 G/DL (14.2-18.0) L Hematocrit 23.6 % (42.0-52.0) L Mean Corpuscular Volume 90 FL (80-99) Mean Corpuscular Hemoglobin 28.9 PG (27.0-31.0) Mean Corpuscular Hemoglobin Concent 32.3 G/DL (32.0-36.0) Red Cell Distribution Width 15.4 % (11.6-14.8) H Platelet Count 309 K/UL (150-450) Mean Platelet Volume 7.0 FL (6.5-10.1) Neutrophils (%) (Auto) % (45.0-75.0) Lymphocytes (%) (Auto) % (20.0-45.0) Monocytes (%) (Auto) % (1.0-10.0) Eosinophils (%) (Auto) % (0.0-3.0) Basophils (%) (Auto) % (0.0-2.0) Differential Total Cells Counted 100 Neutrophils % (Manual) 72 % (45-75) Lymphocytes % (Manual) 19 % (20-45) L Monocytes % (Manual) 8 % (1-10) Eosinophils % (Manual) 1 % (0-3) Basophils % (Manual) 0 % (0-2) Band Neutrophils 0 % (0-8) Platelet Estimate Adequate Platelet Morphology Normal Sodium Level 145 MMOL/L (136-145) Potassium Level 4.0 MMOL/L (3.5-5.1) Chloride Level 114 MMOL/L (98-107) H Carbon Dioxide Level 18 MMOL/L (21-32) L Anion Gap 13 mmol/L (5-15) Blood Urea Nitrogen 50 mg/dL (7-18) H Creatinine 1.4 MG/DL (0.55-1.30) H Estimat Glomerular Filtration Rate 51.2 mL/min (>60) Glucose Level 104 MG/DL (74-106) Calcium Level 9.6 MG/DL (8.5-10.1) Total Bilirubin 1.0 MG/DL (0.2-1.0) Aspartate Amino Transf (AST/SGOT) 103 U/L (15-37) H Alanine Aminotransferase (ALT/SGPT) 51 U/L (12-78) Alkaline Phosphatase 1683 U/L (46-116) H Pro-B-Type Natriuretic Peptide 482 pg/mL (0-125) H Total Protein 8.4 G/DL (6.4-8.2) H Albumin 2.0 G/DL (3.4-5.0) L Globulin 6.4 g/dL Albumin/Globulin Ratio 0.3 (1.0-2.7) L Prothrombin Time 14.0 SEC (9.30-11.50) H Prothromb Time International Ratio 1.3 (0.9-1.1) H Activated Partial Thromboplast Time 31 SEC (23-33) Current Medications Medications (Trade) Dose Ordered Sig/Serena Route PRN Reason Start Time Stop Time Status Last Admin Dose Admin Acetaminophen/ Hydrocodone Bitart ([place] 5/325) 1 tab Q1H PRN ORAL Mild Pain (Pain Scale 1-3) 09/12/17 12:00 09/12/17 18:00 Acetaminophen/ Hydrocodone Bitart ([place] 7.5/325) 1 tab Q1H PRN ORAL Moderate Pain (Pain Scale 4-6) 09/12/17 12:00 09/12/17 18:00 Al Hydroxide/Mg Hydroxide (Mylanta) 15 ml Q1H PRN ORAL gi upset 09/12/17 12:00 09/12/17 18:00 Amiodarone HCl (Cordarone) 200 mg EVERY 12 HOURS GT 08/28/17 09:00 09/27/17 09:00 09/11/17 20:49 Atropine Sulfate (Atropine) 0.5 mg Q5M PRN IV HR <40 09/12/17 12:00 09/12/17 18:00 Chlorhexidine Gluconate (Ngoc-Hex 2%) 1 applic DAILY@2000 TOPIC 08/24/17 20:00 09/23/17 19:59 09/11/17 20:48 Dextrose (Dextrose 50%) 25 ml STAT PRN IV HYPOGLYCEMIA 09/07/17 08:45 10/07/17 08:44 Dextrose (Dextrose 50%) 50 ml STAT PRN IV Hypoglycemia 09/07/17 08:45 09/29/17 09:29 Diphenhydramine HCl (Benadryl) 25 mg Q15M PRN IVP Itching 09/12/17 12:00 09/12/17 18:00 Fentanyl Citrate (Sublimaze 100 mcg/2 mL) 25 mcg Q10M PRN IV Moderate Pain (Pain Scale 4-6) 09/12/17 12:00 09/12/17 18:00 Heparin Sodium (Porcine) (Heparin 5000 units/ml) 5,000 units EVERY 12 HOURS SUBQ 08/28/17 09:00 09/27/17 09:00 09/11/17 20:50 Hydralazine HCl (Apresoline) 5 mg Q30M PRN IV SBP>160 / DBP>90 09/12/17 12:00 09/12/17 18:00 Hydromorphone HCl (Dilaudid) 0.5 mg Q15M PRN IVP Severe Pain (Pain Scale 7-10) 09/12/17 12:00 09/12/17 18:00 Labetalol HCl (Normodyne) 5 mg Q10M PRN IV SBP>160 / DBP>90 09/12/17 12:00 09/12/17 18:00 Levetiracetam (Keppra) 250 mg BID GT 08/28/17 09:00 09/27/17 09:00 09/11/17 18:58 Lorazepam (Ativan 2mg/ml 1ml) 1 mg Q15M PRN IV For Anxiety 09/12/17 12:00 09/12/17 18:00 Meropenem 1 gm/ Sodium Chloride 110 ml @ 220 mls/hr Q8HR IVPB 09/09/17 14:00 09/14/17 13:59 09/12/17 14:33 Midazolam HCl (Versed 2mg/2ml vial) 1 mg Q15M PRN IVP For Anxiety 09/12/17 12:00 09/12/17 18:00 Ondansetron HCl (Zofran) 4 mg Q1H PRN IVP Nausea & Vomiting 09/12/17 12:00 09/12/17 18:00 Ondansetron HCl (Zofran) 4 mg Q6H PRN IVP Nausea & Vomiting 08/28/17 08:30 09/27/17 08:29 Opium Tincture (Opium Tincture) 2 ml QID ORAL 09/09/17 15:30 09/16/17 15:29 09/12/17 14:34 Oxycodone/ Acetaminophen (Percocet 5-325) 1 tab Q1H PRN ORAL Severe Pain (Pain Scale 7-10) 09/12/17 12:00 09/12/17 18:00 Pantoprazole (Protonix) 40 mg DAILY IV 08/01/17 09:00 09/30/17 08:59 09/11/17 10:24 Polyethylene Glycol (Miralax) 17 gm DAILYPRN PRN ORAL Constipation 08/28/17 08:00 09/27/17 08:00 Vancomycin HCl (Vanco rx to dose) 1 ea DAILY PRN MISC Per rx protocol 09/09/17 12:30 10/09/17 12:29 Vancomycin/Sodium Chloride 250 ml @ 166.667 mls/hr Q48H IVPB 09/12/17 15:00 09/17/17 14:59 09/12/17 15:06 Norman Chen MD Sep 12, 2017 17:37
[2017-09-12] MEDS: Dyna-Hex 2% Top Sol 2oz TOPIC SCH (21:55)
--- NOTE | 2017-09-12 23:11 | General Progress Note ---
Assessment/Plan Assessment/Plan #. Anemia of chronic disease. Monitor closely. --> ESR 134. Hemoglobin has been above goal. --> Anemia workup reviewed. --> Iron 37, TIBC 99, Vit B12 535, Folate 11.4 --> Blood transfusion not required unless symptomatic or hgb below 7. --> Downtrended. Transfuse if levels continue to drop #. Leukocytosis, likely secondary to urinary tract infection. --> On broad-spectrum antibiotics. --> Monitor closely. --> Has improved from yesterday. Mild at this time. #. Sepsis --> On vancomycin. --> Wbc count downtrended and improved. #. Coagulopathy. Likely due to decreased vitamin K intake. Imaging reviewed. --> Prominent pancreas, calcification is noted. --> On anticoagulation -- heparin sq #. Dysphagia, status post percutaneous endoscopic gastrostomy tube. #. Cholelithiasis is noted on ultrasound. Borderline diabetic --> HIDA scan is negative. #. Hepatomegaly. #. Transaminitis has since improved, potentially secondary to medications v other causes #. Wound care. Pressure ulcer. #. Ventilator-associated pneumonia. --> On vent and abx --> Tachycardia improved. --> Contracted. #. G-tube feeding. Subjective Date patient seen: Sep 12, 2017 Constitutional: Denies: no symptoms, chills, diaphoresis, fever, malaise, weakness, other HEENT: Denies: no symptoms, eye pain, blurred vision, tearing, double vision, ear pain, ear discharge, nose pain, nose congestion, throat pain, throat swelling, mouth pain, mouth swelling, other Cardiovascular: Denies: no symptoms, chest pain, edema, irregular heart rate, lightheadedness, palpitations, syncope, other Respiratory: Denies: no symptoms, cough, orthopnea, shortness of breath, SOB with excertion, SOB at rest, sputum, stridor, wheezing, other Gastrointestinal/Abdominal: Denies: no symptoms, abdomen distended, abdominal pain, black stools, tarry stools, blood in stool, constipated, diarrhea, difficulty swallowing, nausea, poor appetite, poor fluid intake, rectal bleeding , vomiting, other Genitourinary: Denies: no symptoms, burning, discharge, frequency, flank pain, hematuria, incontinence, pain, urgency, other Neurologic/Psychiatric: Denies: no symptoms, anxiety, depressed, emotional problems, headache, numbness, paresthesia, pre-existing deficit, seizure, tingling, tremors, weakness, other Hematologic/Lymphatic: Reports: anemia Allergies: Coded Allergies: No Known Allergies (Unverified , 07/31/17) Subjective Hemoglobin downtrended. On mech vent. No fever. Objective Last 24 Hour Vital Signs Date Time Temp Pulse Resp B/P (MAP) Pulse Ox O2 Delivery O2 Flow Rate FiO2 09/12/17 20:34 88 22 30 09/12/17 20:00 97.8 86 25 110/68 100 Mechanical Ventilator 30 97.8 09/12/17 19:00 90 09/12/17 18:50 91 22 30 09/12/17 16:32 87 22 30 09/12/17 16:00 82 09/12/17 16:00 98.1 85 27 121/61 100 Mechanical Ventilator 30 98.1 09/12/17 14:46 89 18 30 09/12/17 12:42 30 09/12/17 12:40 97.0 84 15 124/78 100 Mechanical Ventilator 30 97.0 09/12/17 12:31 87 18 30 09/12/17 12:24 85 16 128/82 100 Mechanical Ventilator 30 09/12/17 12:19 86 15 128/89 100 Mechanical Ventilator 30 09/12/17 12:16 206.6 85 20 100 09/12/17 12:15 206.6 84 20 100 09/12/17 12:14 97.0 85 24 126/87 100 Mechanical Ventilator 30 97.0 09/12/17 12:14 30 09/12/17 10:30 88 20 30 09/12/17 09:24 86 20 30 09/12/17 08:00 98.5 82 24 114/70 100 Mechanical Ventilator 30 98.5 09/12/17 08:00 80 09/12/17 07:25 88 21 30 09/12/17 05:20 87 23 30 09/12/17 04:00 92 09/12/17 04:00 30 09/12/17 04:00 97.9 84 24 105/64 100 Mechanical Ventilator 30 97.9 09/12/17 02:49 89 18 30 09/12/17 01:02 91 18 30 09/12/17 00:00 30 09/12/17 00:00 98.2 94 18 97/73 100 Mechanical Ventilator 30 98.2 09/11/17 23:50 93 09/11/17 23:05 100 18 30 Intake and Output 09/11/17 09/12/17 19:00 07:00 Intake Total 150 ml 540 ml Output Total 600 ml 350 ml Balance -450 ml 190 ml Free Water 100 ml IV Total 110 ml 440 ml Other 40 ml Output Urine Total 500 ml 350 ml Stool Total 100 ml 0 ml Laboratory Tests 09/12/17 04:00: White Blood Count 10.3, Red Blood Count 2.64L, Hemoglobin 7.6L, Hematocrit 23.6L , Mean Corpuscular Volume 90, Mean Corpuscular Hemoglobin 28.9, Mean Corpuscular Hemoglobin Concent 32.3, Red Cell Distribution Width 15.4H, Platelet Count 309, Mean Platelet Volume 7.0, Neutrophils (%) (Auto) , Lymphocytes (%) (Auto) , Monocytes (%) (Auto) , Eosinophils (%) (Auto) , Basophils (%) (Auto) , Differential Total Cells Counted 100, Neutrophils % ( Manual) 72, Lymphocytes % (Manual) 19L, Monocytes % (Manual) 8, Eosinophils % ( Manual) 1, Basophils % (Manual) 0, Band Neutrophils 0, Platelet Estimate Adequate, Platelet Morphology Normal, Sodium Level 145, Potassium Level 4.0, Chloride Level 114H, Carbon Dioxide Level 18L, Anion Gap 13, Blood Urea Nitrogen 50H, Creatinine 1.4H, Estimat Glomerular Filtration Rate 51.2, Glucose Level 104, Calcium Level 9.6, Total Bilirubin 1.0, Aspartate Amino Transf (AST/ SGOT) 103H, Alanine Aminotransferase (ALT/SGPT) 51, Alkaline Phosphatase 1683H, Pro-B-Type Natriuretic Peptide 482H, Total Protein 8.4H, Albumin 2.0L, Globulin 6.4, Albumin/Globulin Ratio 0.3L 09/12/17 04:30: Prothrombin Time 14.0H, Prothromb Time International Ratio 1.3H, Activated Partial Thromboplast Time 31 Height (Feet): 6 Height (Inches): 0.00 Weight (Pounds): 113 Respiratory/Chest: decreased breath sounds López Vásquez MD Sep 12, 2017 23:11
[2017-09-13] VITALS: BP 129/78
[2017-09-13 04:00] VITALS: BP 125/79
[2017-09-13 05:24] LABS: BASOPHILS % (AUTO) 0.3 % (0.0-2.0); EOSINOPHILS % (AUTO) 2.1 % (0.0-3.0); LYMPHOCYTES % (AUTO) 10.6 % (20.0-45.0); MEAN CORPUSCULAR VOLUME 89 FL (80-99); MONOCYTES % (AUTO) 7.5 % (1.0-10.0); NEUTROPHILS % (AUTO) 79.6 % (45.0-75.0); PLATELET COUNT 352 K/UL (150-450); RED BLOOD COUNT 2.68 M/UL (4.70-6.10); RED CELL DISTRIBUTION WIDTH 15.2 % (11.6-14.8); WHITE BLOOD COUNT 8.7 K/UL (4.8-10.8)
[2017-09-13] MEDS: Meropenem 1 GM in NS 110 ML IVPB SCH ×3 (05:54→22:31)
[2017-09-13 06:08] LABS: ALANINE AMINOTRANSFERASE 47 U/L (12-78); ALBUMIN 1.9 G/DL (3.4-5.0); ALBUMIN/GLOBULIN RATIO 0.3 (1.0-2.7); ALKALINE PHOSPHATASE 1609 U/L (46-116); ANION GAP 14 mmol/L (5-15); ASPARTATE AMINO TRANSFERASE 82 U/L (15-37); BILIRUBIN,TOTAL 0.7 MG/DL (0.2-1.0); BLOOD UREA NITROGEN 49 mg/dL (7-18); CALCIUM 9.5 MG/DL (8.5-10.1); CARBON DIOXIDE 17 MMOL/L (21-32); CHLORIDE 117 MMOL/L (98-107); CREATININE 1.2 MG/DL (0.55-1.30); POTASSIUM 3.5 MMOL/L (3.5-5.1); SODIUM 148 MMOL/L (136-145)
[2017-09-13 06:10] LABS: PHOSPHORUS 3.9 MG/DL (2.5-4.9)
[2017-09-13 07:38] LABS: INR 1.2 (0.9-1.1)
[2017-09-13 08:00] VITALS: BP 106/74
[2017-09-13] MEDS: Pantoprazole Inj IV SCH (09:00)
[2017-09-13] MEDS: levETIRAcetam 500mg/5ml Liquid GT SCH ×2 (09:44→17:06)
[2017-09-13] MEDS: Heparin 5000 units/ml inj SUBQ SCH ×2 (09:47→22:35)
[2017-09-13] MEDS: Amiodarone 200mg tab GT SCH ×2 (09:48→22:39)
[2017-09-13] MEDS: OPIUM ORAL SCH ×4 (09:48→22:31)
--- NOTE | 2017-09-13 11:02 | Pulmonology Progress Note ---
Assessment/Plan Problems: (1) Sepsis (2) Chronic respiratory failure (3) Encephalopathy (4) Pleural effusion, left (5) UTI (urinary tract infection) (6) Feeding by G-tube Assessment/Plan: discussed with radiologist, there is some change that the findings on CT chest could present TB. therefore, I will put the pt on isolation until we have some sputum AFB's Respiratory: adjust tidal volume Cardiac: continue to monitor HR/BP Renal: check electrolytes Infectious Disease: check cultures, continue antibiotics Gastrointestinal: continue feedings/current rate Endocrine: continue sliding scale insulin Hematologic: monitor H/H, transfuse if hgb<8.5 Neurologic: PRN Ativan, PRN Morphine, keep patient comfortable Affect: PRN ativan Prophylaxis: Heparin Time Spent (Minutes): 40 Notes Reviewed: cardio, renal Discussed with: nurses, consultants, business case analyst Subjective ROS Limited/Unobtainable: No Constitutional: Reports: no symptoms HEENT: Repors: no symptoms Allergies: Coded Allergies: No Known Allergies (Unverified , 07/31/17) Objective Last 24 Hour Vital Signs Date Time Temp Pulse Resp B/P (MAP) Pulse Ox O2 Delivery O2 Flow Rate FiO2 09/13/17 10:51 82 18 30 09/13/17 09:02 82 18 30 09/13/17 08:22 86 24 30 09/13/17 08:00 97.7 85 18 106/74 100 Mechanical Ventilator 30 97.7 09/13/17 07:52 81 09/13/17 04:39 88 18 30 09/13/17 04:05 88 09/13/17 04:00 30 09/13/17 04:00 97.8 90 18 125/79 98 Mechanical Ventilator 30 97.8 09/13/17 03:04 80 17 30 09/13/17 00:32 83 18 30 09/13/17 00:00 30 09/13/17 00:00 97.1 88 24 129/78 100 Mechanical Ventilator 30 97.1 09/13/17 00:00 85 09/12/17 23:02 86 22 30 09/12/17 20:34 88 22 30 09/12/17 20:00 97.8 86 25 110/68 100 Mechanical Ventilator 30 97.8 09/12/17 20:00 30 09/12/17 19:00 90 09/12/17 18:50 91 22 30 09/12/17 16:32 87 22 30 09/12/17 16:00 82 09/12/17 16:00 98.1 85 27 121/61 100 Mechanical Ventilator 30 98.1 09/12/17 14:46 89 18 30 09/12/17 12:42 30 09/12/17 12:40 97.0 84 15 124/78 100 Mechanical Ventilator 30 97.0 09/12/17 12:31 87 18 30 09/12/17 12:24 85 16 128/82 100 Mechanical Ventilator 30 09/12/17 12:19 86 15 128/89 100 Mechanical Ventilator 30 09/12/17 12:16 206.6 85 20 100 09/12/17 12:15 206.6 84 20 100 09/12/17 12:14 97.0 85 24 126/87 100 Mechanical Ventilator 30 97.0 09/12/17 12:14 30 Intake and Output 09/12/17 09/13/17 19:00 07:00 Intake Total 230 ml 570 ml Output Total 350 ml 350 ml Balance -120 ml 220 ml IV Total 200 ml 220 ml Tube Feeding 10 ml 220 ml Other 20 ml 130 ml Output Urine Total 350 ml 350 ml Estimated Blood Loss 0 ml # Voids 1 General Appearance: WD/WN HEENT: normocephalic Respiratory/Chest: chest wall non-tender, lungs clear Cardiovascular: normal peripheral pulses, normal rate Abdomen: normal bowel sounds, soft, non tender Genitourinary: normal external genitalia Extremities: no cyanosis Neurologic/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, responsive Lymphatic: no groin adenopathy Laboratory Tests 09/13/17 04:10: White Blood Count 8.7, Red Blood Count 2.68L, Hemoglobin 8.0L, Hematocrit 24.0L , Mean Corpuscular Volume 89, Mean Corpuscular Hemoglobin 29.7, Mean Corpuscular Hemoglobin Concent 33.3, Red Cell Distribution Width 15.2H, Platelet Count 352, Mean Platelet Volume 7.0, Neutrophils (%) (Auto) 79.6H, Lymphocytes (%) (Auto) 10.6L, Monocytes (%) (Auto) 7.5, Eosinophils (%) (Auto) 2.1, Basophils (%) (Auto) 0.3, Prothrombin Time 13.1H, Prothromb Time International Ratio 1.2H, Activated Partial Thromboplast Time 33, Sodium Level 148H, Potassium Level 3.5, Chloride Level 117H, Carbon Dioxide Level 17L, Anion Gap 14, Blood Urea Nitrogen 49H, Creatinine 1.2, Estimat Glomerular Filtration Rate > 60, Glucose Level 113H, Calcium Level 9.5, Phosphorus Level 3.9, Magnesium Level 2.0, Total Bilirubin 0.7, Aspartate Amino Transf (AST/SGOT) 82H , Alanine Aminotransferase (ALT/SGPT) 47, Alkaline Phosphatase 1609H, Total Protein 8.1, Albumin 1.9L, Globulin 6.2, Albumin/Globulin Ratio 0.3L Current Medications Medications (Trade) Dose Ordered Sig/Serena Route PRN Reason Start Time Stop Time Status Last Admin Dose Admin Amiodarone HCl (Cordarone) 200 mg EVERY 12 HOURS GT 08/28/17 09:00 09/27/17 09:00 09/13/17 09:48 Chlorhexidine Gluconate (Ngoc-Hex 2%) 1 applic DAILY@2000 TOPIC 08/24/17 20:00 09/23/17 19:59 09/12/17 21:55 Dextrose (Dextrose 50%) 25 ml STAT PRN IV HYPOGLYCEMIA 09/07/17 08:45 10/07/17 08:44 Dextrose (Dextrose 50%) 50 ml STAT PRN IV Hypoglycemia 09/07/17 08:45 09/29/17 09:29 Heparin Sodium (Porcine) (Heparin 5000 units/ml) 5,000 units EVERY 12 HOURS SUBQ 08/28/17 09:00 09/27/17 09:00 09/13/17 09:47 Levetiracetam (Keppra) 250 mg BID GT 08/28/17 09:00 09/27/17 09:00 09/13/17 09:44 Meropenem 1 gm/ Sodium Chloride 110 ml @ 220 mls/hr Q8HR IVPB 09/09/17 14:00 09/14/17 13:59 09/13/17 05:54 Ondansetron HCl (Zofran) 4 mg Q6H PRN IVP Nausea & Vomiting 08/28/17 08:30 09/27/17 08:29 Opium Tincture (Opium Tincture) 2 ml QID ORAL 09/09/17 15:30 09/16/17 15:29 09/13/17 09:48 Pantoprazole (Protonix) 40 mg DAILY IV 08/01/17 09:00 09/30/17 08:59 09/13/17 09:00 Polyethylene Glycol (Miralax) 17 gm DAILYPRN PRN ORAL Constipation 08/28/17 08:00 09/27/17 08:00 Vancomycin HCl (Vanco rx to dose) 1 ea DAILY PRN MISC Per rx protocol 09/09/17 12:30 10/09/17 12:29 Vancomycin/Sodium Chloride 250 ml @ 166.667 mls/hr Q48H IVPB 09/12/17 15:00 09/17/17 14:59 09/12/17 15:06 Ernestina James MD Sep 13, 2017 11:02
[2017-09-13] MEDS ORDERED: MEROPENEM1 GM IV (11:05)
[2017-09-13] MEDS ORDERED: VANCOMYCIN1 GM/2502 IVPB (11:05)
[2017-09-13 12:00] VITALS: BP 101/66
--- NOTE | 2017-09-13 14:15 | GI Progress Note ---
Assessment/Plan Problems: (1) Pancreatic duct dilated ICD Codes: K86.89 - Other specified diseases of pancreas SNOMED: 555630633 (2) Encephalopathy ICD Codes: G93.40 - Encephalopathy, unspecified SNOMED: 95640491 (3) Feeding by G-tube ICD Codes: Z93.1 - Gastrostomy status SNOMED: 029589341, [id number] Status: unchanged Status Narrative Discussed with Dr. Owens. Assessment/Plan EGD/EUS Procedure Indication for Procedure: elevated ALP Procedures Performed: EGD, PEG, other - EUS Operative Findings/Diagnosis: dilated CBD and PD unknown etiology ZAID OWENS - Sep 12, 2017 11:56 OB stool negative OBS Respiratory failure diarrhea dysphagia Recommendations ordered CT AP >> pancreatic protocol trend Alk Phos GTFs per RD prn transfusions ppi fu labs Subjective Subjective limited Objective Last 24 Hour Vital Signs Date Time Temp Pulse Resp B/P (MAP) Pulse Ox O2 Delivery O2 Flow Rate FiO2 09/13/17 12:39 78 18 30 09/13/17 12:00 96.5 85 19 101/66 100 Mechanical Ventilator 30 96.5 09/13/17 10:51 82 18 30 09/13/17 09:02 82 18 30 09/13/17 08:22 86 24 30 09/13/17 08:00 97.7 85 18 106/74 100 Mechanical Ventilator 30 97.7 09/13/17 08:00 30 09/13/17 07:52 81 09/13/17 04:39 88 18 30 09/13/17 04:05 88 09/13/17 04:00 30 09/13/17 04:00 97.8 90 18 125/79 98 Mechanical Ventilator 30 97.8 09/13/17 03:04 80 17 30 09/13/17 00:32 83 18 30 09/13/17 00:00 30 09/13/17 00:00 97.1 88 24 129/78 100 Mechanical Ventilator 30 97.1 09/13/17 00:00 85 09/12/17 23:02 86 22 30 09/12/17 20:34 88 22 30 09/12/17 20:00 97.8 86 25 110/68 100 Mechanical Ventilator 30 97.8 09/12/17 20:00 30 09/12/17 19:00 90 09/12/17 18:50 91 22 30 09/12/17 16:32 87 22 30 09/12/17 16:00 82 09/12/17 16:00 98.1 85 27 121/61 100 Mechanical Ventilator 30 98.1 09/12/17 14:46 89 18 30 Intake and Output 09/12/17 09/13/17 19:00 07:00 Intake Total 230 ml 570 ml Output Total 350 ml 350 ml Balance -120 ml 220 ml IV Total 200 ml 220 ml Tube Feeding 10 ml 220 ml Other 20 ml 130 ml Output Urine Total 350 ml 350 ml Estimated Blood Loss 0 ml # Voids 1 Laboratory Tests Test 09/13/17 04:10 White Blood Count 8.7 K/UL (4.8-10.8) Red Blood Count 2.68 M/UL (4.70-6.10) L Hemoglobin 8.0 G/DL (14.2-18.0) L Hematocrit 24.0 % (42.0-52.0) L Mean Corpuscular Volume 89 FL (80-99) Mean Corpuscular Hemoglobin 29.7 PG (27.0-31.0) Mean Corpuscular Hemoglobin Concent 33.3 G/DL (32.0-36.0) Red Cell Distribution Width 15.2 % (11.6-14.8) H Platelet Count 352 K/UL (150-450) Mean Platelet Volume 7.0 FL (6.5-10.1) Neutrophils (%) (Auto) 79.6 % (45.0-75.0) H Lymphocytes (%) (Auto) 10.6 % (20.0-45.0) L Monocytes (%) (Auto) 7.5 % (1.0-10.0) Eosinophils (%) (Auto) 2.1 % (0.0-3.0) Basophils (%) (Auto) 0.3 % (0.0-2.0) Prothrombin Time 13.1 SEC (9.30-11.50) H Prothromb Time International Ratio 1.2 (0.9-1.1) H Activated Partial Thromboplast Time 33 SEC (23-33) Sodium Level 148 MMOL/L (136-145) H Potassium Level 3.5 MMOL/L (3.5-5.1) Chloride Level 117 MMOL/L (98-107) H Carbon Dioxide Level 17 MMOL/L (21-32) L Anion Gap 14 mmol/L (5-15) Blood Urea Nitrogen 49 mg/dL (7-18) H Creatinine 1.2 MG/DL (0.55-1.30) Estimat Glomerular Filtration Rate > 60 mL/min (>60) Glucose Level 113 MG/DL (74-106) H Calcium Level 9.5 MG/DL (8.5-10.1) Phosphorus Level 3.9 MG/DL (2.5-4.9) Magnesium Level 2.0 MG/DL (1.8-2.4) Total Bilirubin 0.7 MG/DL (0.2-1.0) Aspartate Amino Transf (AST/SGOT) 82 U/L (15-37) H Alanine Aminotransferase (ALT/SGPT) 47 U/L (12-78) Alkaline Phosphatase 1609 U/L (46-116) H Total Protein 8.1 G/DL (6.4-8.2) Albumin 1.9 G/DL (3.4-5.0) L Globulin 6.2 g/dL Albumin/Globulin Ratio 0.3 (1.0-2.7) L Height (Feet): 6 Height (Inches): 0.00 Weight (Pounds): 125 General Appearance: no apparent distress Cardiovascular: normal rate Respiratory/Chest: normal breath sounds, no respiratory distress, other - mech vent Abdominal Exam: normal bowel sounds, non tender, soft, GT site - c/d/i Extremities: normal range of motion, non-tender Aurora Astorga N.P. Sep 13, 2017 14:15
--- NOTE | 2017-09-13 15:10 | Infectious Diseases Prog Note ---
Assessment/Plan Assessment/Plan ASSESSMENT: The patient is a 62-year-old male with: Fever, SP leukocytosis, SP UCx Diann : colonizer doubt Pneum : sCx: MDR PSA ( colonizer ) - 09/07 CXR: Left basilarscarring versus atelectasis may be present.. Diarrhea- Cdiff: neg PICC line infection with CoNS, SP Rx -Bcx 08/21 Neg -s/p removal PICC 08/18; s/p new pICC line 08/25 -Bcx 08/15 06/07 + PICC line, peripheral NTD; Bcx 08/18 : 2/4 CoNS; cath tip cx CoNS -echo 07/31: limited views, no obvious vegetations or significant valve abnormalities Recent Blood Cx: CoNS probable line infection (PICC from out side facility was removed on and replaced on 08/03 ) Influenza: Neg -AFB sp cx smear neg x3, cx p, MTB PCR neg -Blatomyces ab neg, CrAg neg, Histoplasma ID neg, CF not done due to anticomplement activity; Cocci ab pending -HIV ag/ab neg -TB spot + (suspect latent rather than active, final AFB cx pending), MTB PCR neg 09/09 UCx : yeast ( Colonizer ) Left heel unstageable decubitus (no purulent discharge.) probable osteo per bone scan -no wound cx obtained NM : flow, blood pool, static activity involving the calcaneal tuberosity on the left. This is worrisome for acute osteomyelitis Sacral Wnd :- no signs of infection -Wnd Cx : MDR Kleb abd MDR ACB (colonizers) Elevated LFTs; worsen ( [facility] 09/13) 09/09 US : Prominent biliary ducts. Cholelithiasis. 08/12 CT C/A/P : no abscess. Evidence of anasarca, with generalized edema of the subcutaneous fat,retroperitoneal and mesenteric fat, trace ascites, small left pleural effusion. -HIDA scan neg Clostridium difficile: Neg 09/[address] effusion: exudate , Pr : 4.4 , cell count : 08/12 SP ultrasound-guided thoracentesis, of 400 cc BETSY , SP Diabetes. Anemia. GERD. Hypertension. History of TBI. Seizure disorder PLAN: - cont Merrem and IV Vanco d# -14 3/31 SP PO Vancomycin 125mg qid Cdiff: neg 09/02 SP V Daptomycin and Ceftriaxone #26/42 and Flagyl #14 08/19 SP INH colistin for MDR PsA PNA 08/18 SP IV Vancomycin #4 08/16 SP Micafungin #5 312 SP Meropenem #10 3/11 SP IV Colistin #9 3/4 SP vancomycin d# 9 and Zosyn and Gent d# 4 3/ SP cefepime day # 5 PICC line care Monitor chest x-ray f/u cocci ab, fungitell, AFB final cultures Monitor CBC panculture ( Bl, ) CT A/P : P by GI Subjective Allergies: Coded Allergies: No Known Allergies (Unverified , 07/31/17) Subjective afebrile Objective Vital Signs Last 24 Hour Vital Signs Date Time Temp Pulse Resp B/P (MAP) Pulse Ox O2 Delivery O2 Flow Rate FiO2 09/13/17 14:35 83 20 30 09/13/17 12:39 78 18 30 09/13/17 12:00 96.5 85 19 101/66 100 Mechanical Ventilator 30 96.5 09/13/17 11:28 82 09/13/17 10:51 82 18 30 09/13/17 09:02 82 18 30 09/13/17 08:22 86 24 30 09/13/17 08:00 97.7 85 18 106/74 100 Mechanical Ventilator 30 97.7 09/13/17 08:00 30 09/13/17 07:52 81 09/13/17 04:39 88 18 30 09/13/17 04:05 88 09/13/17 04:00 30 09/13/17 04:00 97.8 90 18 125/79 98 Mechanical Ventilator 30 97.8 09/13/17 03:04 80 17 30 09/13/17 00:32 83 18 30 09/13/17 00:00 30 09/13/17 00:00 97.1 88 24 129/78 100 Mechanical Ventilator 30 97.1 09/13/17 00:00 85 09/12/17 23:02 86 22 30 09/12/17 20:34 88 22 30 09/12/17 20:00 97.8 86 25 110/68 100 Mechanical Ventilator 30 97.8 09/12/17 20:00 30 09/12/17 19:00 90 09/12/17 18:50 91 22 30 09/12/17 16:32 87 22 30 09/12/17 16:00 82 09/12/17 16:00 98.1 85 27 121/61 100 Mechanical Ventilator 30 98.1 Height (Feet): 6 Height (Inches): 0.00 Weight (Pounds): 125 HEENT: anicteric Respiratory/Chest: no respiratory distress Cardiovascular: regular rhythm Abdomen: no organomegaly Laboratory Tests Test 09/13/17 04:10 White Blood Count 8.7 K/UL (4.8-10.8) Red Blood Count 2.68 M/UL (4.70-6.10) L Hemoglobin 8.0 G/DL (14.2-18.0) L Hematocrit 24.0 % (42.0-52.0) L Mean Corpuscular Volume 89 FL (80-99) Mean Corpuscular Hemoglobin 29.7 PG (27.0-31.0) Mean Corpuscular Hemoglobin Concent 33.3 G/DL (32.0-36.0) Red Cell Distribution Width 15.2 % (11.6-14.8) H Platelet Count 352 K/UL (150-450) Mean Platelet Volume 7.0 FL (6.5-10.1) Neutrophils (%) (Auto) 79.6 % (45.0-75.0) H Lymphocytes (%) (Auto) 10.6 % (20.0-45.0) L Monocytes (%) (Auto) 7.5 % (1.0-10.0) Eosinophils (%) (Auto) 2.1 % (0.0-3.0) Basophils (%) (Auto) 0.3 % (0.0-2.0) Prothrombin Time 13.1 SEC (9.30-11.50) H Prothromb Time International Ratio 1.2 (0.9-1.1) H Activated Partial Thromboplast Time 33 SEC (23-33) Sodium Level 148 MMOL/L (136-145) H Potassium Level 3.5 MMOL/L (3.5-5.1) Chloride Level 117 MMOL/L (98-107) H Carbon Dioxide Level 17 MMOL/L (21-32) L Anion Gap 14 mmol/L (5-15) Blood Urea Nitrogen 49 mg/dL (7-18) H Creatinine 1.2 MG/DL (0.55-1.30) Estimat Glomerular Filtration Rate > 60 mL/min (>60) Glucose Level 113 MG/DL (74-106) H Calcium Level 9.5 MG/DL (8.5-10.1) Phosphorus Level 3.9 MG/DL (2.5-4.9) Magnesium Level 2.0 MG/DL (1.8-2.4) Total Bilirubin 0.7 MG/DL (0.2-1.0) Aspartate Amino Transf (AST/SGOT) 82 U/L (15-37) H Alanine Aminotransferase (ALT/SGPT) 47 U/L (12-78) Alkaline Phosphatase 1609 U/L (46-116) H Total Protein 8.1 G/DL (6.4-8.2) Albumin 1.9 G/DL (3.4-5.0) L Globulin 6.2 g/dL Albumin/Globulin Ratio 0.3 (1.0-2.7) L Current Medications Medications (Trade) Dose Ordered Sig/Serena Route PRN Reason Start Time Stop Time Status Last Admin Dose Admin Amiodarone HCl (Cordarone) 200 mg EVERY 12 HOURS GT 08/28/17 09:00 09/27/17 09:00 09/13/17 09:48 Chlorhexidine Gluconate (Ngoc-Hex 2%) 1 applic DAILY@2000 TOPIC 08/24/17 20:00 09/23/17 19:59 09/12/17 21:55 Dextrose (Dextrose 50%) 25 ml STAT PRN IV HYPOGLYCEMIA 09/07/17 08:45 10/07/17 08:44 Dextrose (Dextrose 50%) 50 ml STAT PRN IV Hypoglycemia 09/07/17 08:45 09/29/17 09:29 Heparin Sodium (Porcine) (Heparin 5000 units/ml) 5,000 units EVERY 12 HOURS SUBQ 08/28/17 09:00 09/27/17 09:00 09/13/17 09:47 Levetiracetam (Keppra) 250 mg BID GT 08/28/17 09:00 09/27/17 09:00 09/13/17 09:44 Meropenem 1 gm/ Sodium Chloride 110 ml @ 220 mls/hr Q8HR IVPB 09/09/17 14:00 09/15/17 23:39 09/13/17 05:54 Ondansetron HCl (Zofran) 4 mg Q6H PRN IVP Nausea & Vomiting 08/28/17 08:30 09/27/17 08:29 Opium Tincture (Opium Tincture) 2 ml QID ORAL 09/09/17 15:30 09/16/17 15:29 09/13/17 09:48 Pantoprazole (Protonix) 40 mg DAILY IV 08/01/17 09:00 09/30/17 08:59 09/13/17 09:00 Polyethylene Glycol (Miralax) 17 gm DAILYPRN PRN ORAL Constipation 08/28/17 08:00 09/27/17 08:00 Vancomycin HCl (Vanco rx to dose) 1 ea DAILY PRN MISC Per rx protocol 09/09/17 12:30 10/09/17 12:29 Vancomycin/Sodium Chloride 250 ml @ 166.667 mls/hr Q48H IVPB 09/12/17 15:00 09/17/17 14:59 09/12/17 15:06 Norman Chen MD Sep 13, 2017 15:10
[2017-09-13] MEDS ORDERED: Tubing Blood Filter IV ONE (15:56)
[2017-09-13] MEDS ORDERED: Tubing IV Secondary IV ONE (15:56)
[2017-09-13] MEDS ORDERED: NS 275ml ONE (15:56)
[2017-09-13 16:00] VITALS: BP 106/65
[2017-09-13 20:00] VITALS: BP 115/75
[2017-09-13] MEDS: Dyna-Hex 2% Top Sol 2oz TOPIC SCH (20:42)
--- NOTE | 2017-09-13 23:40 | General Progress Note ---
Assessment/Plan Assessment/Plan #. Anemia of chronic disease. Monitor closely. --> ESR 134. Hemoglobin has been above goal. --> Anemia workup reviewed. --> Iron 37, TIBC 99, Vit B12 535, Folate 11.4 --> Blood transfusion not required unless symptomatic or hgb below 7. --> Levels improved from yesterday. #. Sepsis --> On vancomycin. --> Wbc count downtrended and improved. #. Coagulopathy. Likely due to decreased vitamin K intake. Imaging reviewed. --> Prominent pancreas, calcification is noted. --> On anticoagulation -- heparin sq #. Leukocytosis, likely secondary to urinary tract infection. --> On broad-spectrum antibiotics. --> Monitor closely. --> Has improved from yesterday. Resolved at this time. #. Dysphagia, status post percutaneous endoscopic gastrostomy tube. #. Cholelithiasis is noted on ultrasound. Borderline diabetic --> HIDA scan is negative. #. Hepatomegaly. #. Transaminitis has since improved, potentially secondary to medications v other causes #. Wound care. Pressure ulcer. #. Ventilator-associated pneumonia. --> On vent and abx --> Tachycardia improved. --> Contracted. #. G-tube feeding. Possible TB seen in recent CAT scan. Pt was placed in isolation. Subjective Date patient seen: Sep 13, 2017 Constitutional: Denies: no symptoms, chills, diaphoresis, fever, malaise, weakness, other HEENT: Denies: no symptoms, eye pain, blurred vision, tearing, double vision, ear pain, ear discharge, nose pain, nose congestion, throat pain, throat swelling, mouth pain, mouth swelling, other Cardiovascular: Denies: no symptoms, chest pain, edema, irregular heart rate, lightheadedness, palpitations, syncope, other Respiratory: Denies: no symptoms, cough, orthopnea, shortness of breath, SOB with excertion, SOB at rest, sputum, stridor, wheezing, other Gastrointestinal/Abdominal: Denies: no symptoms, abdomen distended, abdominal pain, black stools, tarry stools, blood in stool, constipated, diarrhea, difficulty swallowing, nausea, poor appetite, poor fluid intake, rectal bleeding , vomiting, other Genitourinary: Denies: no symptoms, burning, discharge, frequency, flank pain, hematuria, incontinence, pain, urgency, other Neurologic/Psychiatric: Denies: no symptoms, anxiety, depressed, emotional problems, headache, numbness, paresthesia, pre-existing deficit, seizure, tingling, tremors, weakness, other Hematologic/Lymphatic: Reports: anemia Allergies: Coded Allergies: No Known Allergies (Unverified , 07/31/17) Subjective Isolation due to possible TB. On abx. No fever. Objective Last 24 Hour Vital Signs Date Time Temp Pulse Resp B/P (MAP) Pulse Ox O2 Delivery O2 Flow Rate FiO2 09/13/17 22:53 82 18 30 09/13/17 21:26 82 18 30 09/13/17 20:00 83 09/13/17 20:00 97.9 83 18 115/75 98 Mechanical Ventilator 30 97.9 09/13/17 19:40 84 18 30 09/13/17 16:32 84 18 30 09/13/17 16:00 30 09/13/17 16:00 98.7 74 18 106/65 100 Mechanical Ventilator 30 98.7 09/13/17 15:16 80 09/13/17 14:35 83 20 30 09/13/17 12:39 78 18 30 09/13/17 12:00 96.5 85 19 101/66 100 Mechanical Ventilator 30 96.5 09/13/17 12:00 30 09/13/17 11:28 82 09/13/17 10:51 82 18 30 09/13/17 09:02 82 18 30 09/13/17 08:22 86 24 30 09/13/17 08:00 97.7 85 18 106/74 100 Mechanical Ventilator 30 97.7 09/13/17 08:00 30 09/13/17 07:52 81 09/13/17 04:39 88 18 30 09/13/17 04:05 88 09/13/17 04:00 30 09/13/17 04:00 97.8 90 18 125/79 98 Mechanical Ventilator 30 97.8 09/13/17 03:04 80 17 30 09/13/17 00:32 83 18 30 09/13/17 00:00 30 09/13/17 00:00 97.1 88 24 129/78 100 Mechanical Ventilator 30 97.1 09/13/17 00:00 85 Intake and Output 09/12/17 09/13/17 19:00 07:00 Intake Total 230 ml 570 ml Output Total 350 ml 350 ml Balance -120 ml 220 ml IV Total 200 ml 220 ml Tube Feeding 10 ml 220 ml Other 20 ml 130 ml Output Urine Total 350 ml 350 ml Estimated Blood Loss 0 ml # Voids 1 Laboratory Tests 09/13/17 04:10: White Blood Count 8.7, Red Blood Count 2.68L, Hemoglobin 8.0L, Hematocrit 24.0L , Mean Corpuscular Volume 89, Mean Corpuscular Hemoglobin 29.7, Mean Corpuscular Hemoglobin Concent 33.3, Red Cell Distribution Width 15.2H, Platelet Count 352, Mean Platelet Volume 7.0, Neutrophils (%) (Auto) 79.6H, Lymphocytes (%) (Auto) 10.6L, Monocytes (%) (Auto) 7.5, Eosinophils (%) (Auto) 2.1, Basophils (%) (Auto) 0.3, Prothrombin Time 13.1H, Prothromb Time International Ratio 1.2H, Activated Partial Thromboplast Time 33, Sodium Level 148H, Potassium Level 3.5, Chloride Level 117H, Carbon Dioxide Level 17L, Anion Gap 14, Blood Urea Nitrogen 49H, Creatinine 1.2, Estimat Glomerular Filtration Rate > 60, Glucose Level 113H, Calcium Level 9.5, Phosphorus Level 3.9, Magnesium Level 2.0, Total Bilirubin 0.7, Aspartate Amino Transf (AST/SGOT) 82H , Alanine Aminotransferase (ALT/SGPT) 47, Alkaline Phosphatase 1609H, Total Protein 8.1, Albumin 1.9L, Globulin 6.2, Albumin/Globulin Ratio 0.3L Height (Feet): 6 Height (Inches): 0.00 Weight (Pounds): 125 General Appearance: confused Respiratory/Chest: decreased breath sounds López Vásquez MD Sep 13, 2017 23:40
[2017-09-14] VITALS: BP 108/72
[2017-09-14] MEDS: Meropenem 1 GM in NS 110 ML IVPB SCH ×3 (01:45→17:12)
[2017-09-14 04:00] VITALS: BP 112/68
[2017-09-14 05:54] LABS: BASOPHILS % (AUTO) 0.3 % (0.0-2.0); EOSINOPHILS % (AUTO) 2.6 % (0.0-3.0); HEMATOCRIT 25.2 % (42.0-52.0); HEMOGLOBIN 8.5 G/DL (14.2-18.0); LYMPHOCYTES % (AUTO) 14.7 % (20.0-45.0); MEAN CORPUSCULAR VOLUME 90 FL (80-99); MONOCYTES % (AUTO) 7.4 % (1.0-10.0); PLATELET COUNT 319 K/UL (150-450); RED CELL DISTRIBUTION WIDTH 15.4 % (11.6-14.8); WHITE BLOOD COUNT 7.2 K/UL (4.8-10.8)
[2017-09-14 06:04] LABS: INR 1.2 (0.9-1.1)
[2017-09-14 06:14] LABS: ALANINE AMINOTRANSFERASE 43 U/L (12-78); ALBUMIN 1.9 G/DL (3.4-5.0); ALBUMIN/GLOBULIN RATIO 0.3 (1.0-2.7); ALKALINE PHOSPHATASE 1843 U/L (46-116); ANION GAP 13 mmol/L (5-15); ASPARTATE AMINO TRANSFERASE 92 U/L (15-37); BILIRUBIN,TOTAL 0.5 MG/DL (0.2-1.0); BLOOD UREA NITROGEN 39 mg/dL (7-18); CALCIUM 9.3 MG/DL (8.5-10.1); CARBON DIOXIDE 18 MMOL/L (21-32); CHLORIDE 118 MMOL/L (98-107); CREATININE 1.1 MG/DL (0.55-1.30); PHOSPHORUS 2.9 MG/DL (2.5-4.9); POTASSIUM 3.6 MMOL/L (3.5-5.1); SODIUM 149 MMOL/L (136-145)
--- NOTE | 2017-09-14 07:45 | Procedure Note ---
DATE OF PROCEDURE: 09/12/2017 SURGEON: Gigi Owens M.D. ANESTHESIOLOGIST: Dr. Coe. REFERRING PHYSICIAN: Ernestina James M.D. PROCEDURE: Upper endoscopy with biopsy, G-tube placement, endoscopic ultrasound. ANESTHESIA: Per Dr. Coe. INSTRUMENT: Olympus adult flexible upper endoscope and EUS scope. INDICATION: Anemia, elevated alkaline phosphatase, dilated biliary system. The procedure, risks, benefits, and possible consequences, including hemorrhage, aspiration, perforation and infection, and alternative treatments, were explained to the patient/legal guardian by Dr. Gigi Owens and the patient/legal guardian understood and accepted these risks. DESCRIPTION OF PROCEDURE: After informed consent was obtained and the patient was adequately sedated, Olympus upper endoscope was advanced from the mouth to the second portion of the duodenum and retroflexion was performed in the stomach. We noticed that G-tube was not in the right place. G-tube was under the skin and was not in the stomach, so we deflated the balloon and removed the G-tube. Also, the patient had diffuse gastritis. Random biopsy from body was obtained. At this time, we removed upper endoscope and introduced the EUS scope scanning starting at GE junction. Celiac axis was seen without any obvious celiac axis lymphadenopathy. Left adrenal gland was seen without any adenoma or any pathology and the pancreatic body showed evidence of may be chronic pancreatitis. Pancreatic duct was dilated in the body to about 5 mm, even more in the genu. No obvious cyst or mass was seen in the body or tail. Then, the scope was advanced into the duodenal bulb and second portion of the duodenum. Gallbladder was seen with multiple stones and sludge in it. Common bile duct and pancreatic duct was significantly dilated. Common bile duct measured 1.24 cm and pancreatic duct measured 9 mm in the area of the head of the pancreas. We went back and forth into the second portion of duodenum and back into the duodenal bulb looking for any obvious pancreatic head mass or ampullary mass, we could not see any. At this time, I am not sure what was the cause for pancreatic duct and common bile duct dilatation. diagnosis would be a small ampullary mass which was not seen on this exam or pancreatic mass versus papillary stenosis although the patient has gallbladder papillary stenosis is a less-possible diagnosis. Other possibility is the patient passed a stone or sludge recently and that is why the both ducts are still dilated. There is questionable sludge in the common bile duct, but no obvious stone in common bile duct was seen. At this time, the scope was retrieved and we agreed to stop the scope and placed a 20-Ecuadorean G-tube placement under sterile condition. SUMMARY OF FINDINGS: 1. Malplaced G-tube, status post replacement. 2. Gastritis, status post biopsy. 3. Dilated pancreatic duct and common bile duct without any obvious stone in the common bile duct or any ampullary or pancreatic mass at this time. 4. Gallbladder sludge and stone. RECOMMENDATIONS: Recommend the patient's laboratories to be monitored on daily basis especially liver function tests. We will consider doing CT scan with contrast if the creatinine gets better or stabilizes. ERCP will be warranted if the alkaline phosphatase continues to rise. At this point, we are going to start tube feeding and monitor above. I want to thank Dr. James for this kind referral. Gigi Owens M.D. DR: Valorie JOB#: [id number] CC: Ernestina James M.D.; Fax#: [phone]
[2017-09-14 08:00] VITALS: BP 144/70
[2017-09-14] MEDS: levETIRAcetam 500mg/5ml Liquid GT SCH (08:30)
[2017-09-14] MEDS: Amiodarone 200mg tab GT SCH (08:30)
[2017-09-14] MEDS: OPIUM ORAL SCH ×3 (08:31→18:20)
[2017-09-14] MEDS: Pantoprazole Inj IV SCH (08:31)
[2017-09-14] MEDS: Heparin 5000 units/ml inj SUBQ SCH (08:32)
--- NOTE | 2017-09-14 11:04 | GI Progress Note ---
Assessment/Plan Problems: (1) Pancreatic duct dilated ICD Codes: K86.89 - Other specified diseases of pancreas SNOMED: 369535529 (2) Encephalopathy ICD Codes: G93.40 - Encephalopathy, unspecified SNOMED: 59598493 (3) Feeding by G-tube ICD Codes: Z93.1 - Gastrostomy status SNOMED: 805202218, 395083030 Status: unchanged Status Narrative Discussed with Dr. Owens. Assessment/Plan EGD/EUS Procedure Indication for Procedure: elevated ALP Procedures Performed: EGD, PEG, other - EUS Operative Findings/Diagnosis: dilated CBD and PD unknown etiology ZAID OWENS - Sep 12, 2017 11:56 OB stool negative OBS Respiratory failure diarrhea dysphagia Recommendations ordered CT AP >> pancreatic protocol trend Alk Phos GTFs per RD prn transfusions ppi fu labs Subjective Subjective limited Objective Last 24 Hour Vital Signs Date Time Temp Pulse Resp B/P (MAP) Pulse Ox O2 Delivery O2 Flow Rate FiO2 09/14/17 09:03 82 18 30 09/14/17 09:00 30 09/14/17 08:00 80 09/14/17 08:00 98.1 81 18 144/70 97 Mechanical Ventilator 30 98.1 09/14/17 06:50 80 18 30 09/14/17 04:39 81 18 30 09/14/17 04:00 85 09/14/17 04:00 98.1 83 18 112/68 100 Mechanical Ventilator 30 98.1 09/14/17 04:00 30 09/14/17 03:23 82 18 30 09/14/17 00:42 81 18 30 09/14/17 00:00 97.4 86 18 108/72 97 Mechanical Ventilator 30 97.4 09/14/17 00:00 30 09/13/17 23:24 82 09/13/17 22:53 82 18 30 09/13/17 21:26 82 18 30 09/13/17 20:00 30 09/13/17 20:00 83 09/13/17 20:00 97.9 83 18 115/75 98 Mechanical Ventilator 30 97.9 09/13/17 19:40 84 18 30 09/13/17 16:32 84 18 30 09/13/17 16:00 30 09/13/17 16:00 98.7 74 18 106/65 100 Mechanical Ventilator 30 98.7 09/13/17 15:16 80 09/13/17 14:35 83 20 30 09/13/17 12:39 78 18 30 09/13/17 12:00 96.5 85 19 101/66 100 Mechanical Ventilator 30 96.5 09/13/17 12:00 30 09/13/17 11:28 82 Intake and Output 09/13/17 09/14/17 19:00 07:00 Intake Total 605 ml 315 ml Output Total 500 ml 350 ml Balance 105 ml -35 ml Free Water 20 ml IV Total 110 ml 110 ml Tube Feeding 435 ml 175 ml Other 40 ml 30 ml Output Urine Total 500 ml 350 ml # Voids 1 # Bowel Movements 1 Laboratory Tests Test 09/14/17 04:50 White Blood Count 7.2 K/UL (4.8-10.8) Red Blood Count 2.80 M/UL (4.70-6.10) L Hemoglobin 8.5 G/DL (14.2-18.0) L Hematocrit 25.2 % (42.0-52.0) L Mean Corpuscular Volume 90 FL (80-99) Mean Corpuscular Hemoglobin 30.2 PG (27.0-31.0) Mean Corpuscular Hemoglobin Concent 33.7 G/DL (32.0-36.0) Red Cell Distribution Width 15.4 % (11.6-14.8) H Platelet Count 319 K/UL (150-450) Mean Platelet Volume 7.0 FL (6.5-10.1) Neutrophils (%) (Auto) 75.0 % (45.0-75.0) Lymphocytes (%) (Auto) 14.7 % (20.0-45.0) L Monocytes (%) (Auto) 7.4 % (1.0-10.0) Eosinophils (%) (Auto) 2.6 % (0.0-3.0) Basophils (%) (Auto) 0.3 % (0.0-2.0) Prothrombin Time 13.0 SEC (9.30-11.50) H Prothromb Time International Ratio 1.2 (0.9-1.1) H Activated Partial Thromboplast Time 32 SEC (23-33) Sodium Level 149 MMOL/L (136-145) H Potassium Level 3.6 MMOL/L (3.5-5.1) Chloride Level 118 MMOL/L (98-107) H Carbon Dioxide Level 18 MMOL/L (21-32) L Anion Gap 13 mmol/L (5-15) Blood Urea Nitrogen 39 mg/dL (7-18) H Creatinine 1.1 MG/DL (0.55-1.30) Estimat Glomerular Filtration Rate > 60 mL/min (>60) Glucose Level 108 MG/DL (74-106) H Calcium Level 9.3 MG/DL (8.5-10.1) Phosphorus Level 2.9 MG/DL (2.5-4.9) Magnesium Level 1.8 MG/DL (1.8-2.4) Total Bilirubin 0.5 MG/DL (0.2-1.0) Aspartate Amino Transf (AST/SGOT) 92 U/L (15-37) H Alanine Aminotransferase (ALT/SGPT) 43 U/L (12-78) Alkaline Phosphatase 1843 U/L (46-116) H Total Protein 8.1 G/DL (6.4-8.2) Albumin 1.9 G/DL (3.4-5.0) L Globulin 6.2 g/dL Albumin/Globulin Ratio 0.3 (1.0-2.7) L Height (Feet): 6 Height (Inches): 0.00 Weight (Pounds): 122 General Appearance: no apparent distress Cardiovascular: normal rate Respiratory/Chest: normal breath sounds, no respiratory distress, other - mech vent Abdominal Exam: normal bowel sounds, non tender, soft, GT site - c/d/i Extremities: non-tender Aurora Astorga NBari Sep 14, 2017 11:04
--- NOTE | 2017-09-14 11:16 | Pulmonology Progress Note ---
Assessment/Plan Problems: (1) Sepsis (2) Chronic respiratory failure (3) Encephalopathy (4) Pleural effusion, left (5) UTI (urinary tract infection) (6) Feeding by G-tube Assessment/Plan: discussed with radiologist, there is some change that the findings on CT chest could present TB. therefore, I will put the pt on isolation until we have some sputum AFB's Respiratory: monitor respiratory rate, adjust FIO2, CXR Cardiac: continue to monitor HR/BP Renal: F/U I&O, keep IV fluid, check electrolytes Infectious Disease: check cultures, continue antibiotics Gastrointestinal: continue feedings/current rate Endocrine: monitor blood sugar, check TSH, check HgA1C, continue sliding scale insulin Hematologic: transfuse if hgb<8.5 Neurologic: PRN Morphine, keep patient comfortable Prophylaxis: Protonix Disposition: keep in ICU Notes Reviewed: cardio Discussed with: nurses, consultants, counseling case manager Subjective ROS Limited/Unobtainable: No Constitutional: Reports: no symptoms HEENT: Repors: no symptoms Respiratory: Reports: no symptoms Allergies: Coded Allergies: No Known Allergies (Unverified , 07/31/17) Objective Last 24 Hour Vital Signs Date Time Temp Pulse Resp B/P (MAP) Pulse Ox O2 Delivery O2 Flow Rate FiO2 09/14/17 09:03 82 18 30 09/14/17 09:00 30 09/14/17 08:00 80 09/14/17 08:00 98.1 81 18 144/70 97 Mechanical Ventilator 30 98.1 09/14/17 06:50 80 18 30 09/14/17 04:39 81 18 30 09/14/17 04:00 85 09/14/17 04:00 98.1 83 18 112/68 100 Mechanical Ventilator 30 98.1 09/14/17 04:00 30 09/14/17 03:23 82 18 30 09/14/17 00:42 81 18 30 09/14/17 00:00 97.4 86 18 108/72 97 Mechanical Ventilator 30 97.4 09/14/17 00:00 30 09/13/17 23:24 82 09/13/17 22:53 82 18 30 09/13/17 21:26 82 18 30 09/13/17 20:00 30 09/13/17 20:00 83 09/13/17 20:00 97.9 83 18 115/75 98 Mechanical Ventilator 30 97.9 09/13/17 19:40 84 18 30 09/13/17 16:32 84 18 30 09/13/17 16:00 30 09/13/17 16:00 98.7 74 18 106/65 100 Mechanical Ventilator 30 98.7 09/13/17 15:16 80 09/13/17 14:35 83 20 30 09/13/17 12:39 78 18 30 09/13/17 12:00 96.5 85 19 101/66 100 Mechanical Ventilator 30 96.5 09/13/17 12:00 30 09/13/17 11:28 82 Intake and Output 09/13/17 09/14/17 19:00 07:00 Intake Total 605 ml 315 ml Output Total 500 ml 350 ml Balance 105 ml -35 ml Free Water 20 ml IV Total 110 ml 110 ml Tube Feeding 435 ml 175 ml Other 40 ml 30 ml Output Urine Total 500 ml 350 ml # Voids 1 # Bowel Movements 1 General Appearance: cachetic HEENT: normocephalic, atraumatic Respiratory/Chest: chest wall non-tender, lungs clear, no respiratory distress Cardiovascular: normal peripheral pulses, normal rate Abdomen: normal bowel sounds, soft, non tender Skin: no rash, no lesions Laboratory Tests 09/14/17 04:50: White Blood Count 7.2, Red Blood Count 2.80L, Hemoglobin 8.5L, Hematocrit 25.2L , Mean Corpuscular Volume 90, Mean Corpuscular Hemoglobin 30.2, Mean Corpuscular Hemoglobin Concent 33.7, Red Cell Distribution Width 15.4H, Platelet Count 319, Mean Platelet Volume 7.0, Neutrophils (%) (Auto) 75.0, Lymphocytes (%) (Auto) 14.7L, Monocytes (%) (Auto) 7.4, Eosinophils (%) (Auto) 2.6, Basophils (%) (Auto) 0.3, Prothrombin Time 13.0H, Prothromb Time International Ratio 1.2H, Activated Partial Thromboplast Time 32, Sodium Level 149H, Potassium Level 3.6, Chloride Level 118H, Carbon Dioxide Level 18L, Anion Gap 13, Blood Urea Nitrogen 39H, Creatinine 1.1, Estimat Glomerular Filtration Rate > 60, Glucose Level 108H, Calcium Level 9.3, Phosphorus Level 2.9, Magnesium Level 1.8, Total Bilirubin 0.5, Aspartate Amino Transf (AST/SGOT) 92H , Alanine Aminotransferase (ALT/SGPT) 43, Alkaline Phosphatase 1843H, Total Protein 8.1, Albumin 1.9L, Globulin 6.2, Albumin/Globulin Ratio 0.3L Current Medications Medications (Trade) Dose Ordered Sig/Serena Route PRN Reason Start Time Stop Time Status Last Admin Dose Admin Amiodarone HCl (Cordarone) 200 mg EVERY 12 HOURS GT 08/28/17 09:00 09/27/17 09:00 09/14/17 08:30 Chlorhexidine Gluconate (Ngoc-Hex 2%) 1 applic DAILY@2000 TOPIC 08/24/17 20:00 09/23/17 19:59 09/13/17 20:42 Dextrose (Dextrose 50%) 25 ml STAT PRN IV HYPOGLYCEMIA 09/07/17 08:45 10/07/17 08:44 Dextrose (Dextrose 50%) 50 ml STAT PRN IV Hypoglycemia 09/07/17 08:45 09/29/17 09:29 Heparin Sodium (Porcine) (Heparin 5000 units/ml) 5,000 units EVERY 12 HOURS SUBQ 08/28/17 09:00 09/27/17 09:00 09/14/17 08:32 Levetiracetam (Keppra) 250 mg BID GT 08/28/17 09:00 09/27/17 09:00 09/14/17 08:30 Meropenem 1 gm/ Sodium Chloride 110 ml @ 220 mls/hr 0100,0900,1700 IVPB 09/14/17 01:00 09/19/17 00:59 09/14/17 08:33 Ondansetron HCl (Zofran) 4 mg Q6H PRN IVP Nausea & Vomiting 08/28/17 08:30 09/27/17 08:29 Opium Tincture (Opium Tincture) 2 ml QID ORAL 09/09/17 15:30 09/16/17 15:29 09/14/17 08:31 Pantoprazole (Protonix) 40 mg DAILY IV 08/01/17 09:00 09/30/17 08:59 09/14/17 08:31 Polyethylene Glycol (Miralax) 17 gm DAILYPRN PRN ORAL Constipation 08/28/17 08:00 09/27/17 08:00 Vancomycin HCl (Vanco rx to dose) 1 ea DAILY PRN MISC Per rx protocol 09/09/17 12:30 10/09/17 12:29 Vancomycin/Sodium Chloride 250 ml @ 166.667 mls/hr Q48H IVPB 09/12/17 15:00 09/17/17 14:59 09/12/17 15:06 Ernestina James MD Sep 14, 2017 11:16
[2017-09-14 12:00] VITALS: BP 105/62
--- NOTE | 2017-09-14 13:50 | Diagnostic Imaging Report ---
Indication: Abdominal pain Technique: Continuous helical transaxial imaging of the abdomen and pelvis was obtained from the lung bases to the pubic symphysis during intravenous contrast administration. Coronal 2-D reformats were also obtained. Study obtained in a Siemens sensation [address] Automatic Exposure Control was utilized. Total Dose length Product (DLP): 950.[address] Dose Index Volume (CTDIvol): 10.8,12.75 mGy Comparison: Noncontrast CT 08/12/2017 Findings: Trace basilar pleural effusions are present with associated atelectasis. The main pancreatic duct and the CBD appear prominent. The degree of dilatation appears to be worse compared to the prior study. There is no definite evidence of choledocholithiasis on this examination which is less sensitive than MRI. A small gallstone is again noted within the gallbladder which appears distended currently. There is suggestion of some pericholecystic fluid, possibly inflammation. Correlate for cholecystitis. There is no pseudocyst or evidence of abscess. There is perinephric stranding as well. There is a small amount of fluid surrounding the liver. There is no hydronephrosis. Gastrostomy is noted. There is thickening of the wall of the duodenum. Aorta is moderately calcified. No evidence of bowel obstruction. A rectal tube is present. Mishra catheter is in good position. Anasarca noted. IMPRESSION: Distended gallbladder with gallstone. Mild thickening of the gallbladder wall. Cholecystitis not excluded. Soft tissue stranding in the upper abdomen could be related to cholecystitis or pancreatitis/duodenitis. The findings are less specific in this case as there is generalized soft tissue stranding, present such as in the retroperitoneum and subcutaneous tissues (anasarca). Dilated biliary ducts and main pancreatic duct. No definite evidence of choledocholithiasis. Trace basilar effusions and atelectasis Gastrostomy Atherosclerotic disease Rectal tube Mishra catheter in good position The CT scanner at [facility] is accredited by the [employer] and the scans are performed using dose optimization techniques as appropriate to a performed exam including Automatic Exposure control.
[2017-09-14] MEDS ORDERED: Tubing IV Secondary IV ONE (14:30)
[2017-09-14] MEDS ORDERED: NS 275ml ONE (14:30)
[2017-09-14] MEDS: Vancomycin 750mg/NS 250ml IVPB SCH (14:44)
[2017-09-14 15:59] VITALS: BP 92/56
--- NOTE | 2017-09-14 19:31 | Infectious Diseases Prog Note ---
Assessment/Plan Assessment/Plan ASSESSMENT: The patient is a 62-year-old male with: Fever, SP leukocytosis, SP UCx Diann : colonizer doubt Pneum : sCx: MDR PSA ( colonizer ) - 09/07 CXR: Left basilarscarring versus atelectasis may be present.. Diarrhea- Cdiff: neg PICC line infection with CoNS, SP Rx -Bcx 08/21 Neg -s/p removal PICC 08/18; s/p new pICC line 08/25 -Bcx 08/15 06/07 + PICC line, peripheral NTD; Bcx 08/18 : 2/4 CoNS; cath tip cx CoNS -echo 07/31: limited views, no obvious vegetations or significant valve abnormalities Recent Blood Cx: CoNS probable line infection (PICC from out side facility was removed on and replaced on 08/03 ) Influenza: Neg -AFB sp cx smear neg x3, cx p, MTB PCR neg -Blatomyces ab neg, CrAg neg, Histoplasma ID neg, CF not done due to anticomplement activity; Cocci ab pending -HIV ag/ab neg -TB spot + (suspect latent rather than active, final AFB cx pending), MTB PCR neg 09/09 UCx : yeast ( Colonizer ) Left heel unstageable decubitus (no purulent discharge.) probable osteo per bone scan -no wound cx obtained NM : flow, blood pool, static activity involving the calcaneal tuberosity on the left. This is worrisome for acute osteomyelitis Sacral Wnd :- no signs of infection -Wnd Cx : MDR Kleb abd MDR ACB (colonizers) Elevated LFTs; worsen ( [facility] 09/13) 09/14 : CT: Distended gallbladder with gallstone. Mild thickening of the gallbladder wall. Cholecystitis not excluded.Dilated biliary ducts and main pancreatic duct. No definite evidence of choledocholithiasis. 09/09 US : Prominent biliary ducts. Cholelithiasis. 08/12 CT C/A/P : no abscess. Evidence of anasarca, with generalized edema of the subcutaneous fat,retroperitoneal and mesenteric fat, trace ascites, small left pleural effusion. -HIDA scan neg Clostridium difficile: Neg 09/[address] effusion: exudate , Pr : 4.4 , cell count : 08/12 SP ultrasound-guided thoracentesis, of 400 cc BETSY , SP Diabetes. Anemia. GERD. Hypertension. History of TBI. Seizure disorder PLAN: - cont Merrem and IV Vanco d# 13 / 10-14 09/03 SP PO Vancomycin 125mg qid Cdiff: neg 09/02 SP V Daptomycin and Ceftriaxone #/ and Flagyl #14 08/19 SP INH colistin for MDR PsA PNA 08/18 SP IV Vancomycin #4 08/16 SP Micafungin #5 08/15 SP Meropenem #10 08/14 SP IV Colistin #9 3/ SP vancomycin d# 9 and Zosyn and Gent d# 4 3 SP cefepime day # 5 PICC line care Monitor chest x-ray f/u cocci ab, fungitell, AFB final cultures Monitor CBC panculture ( Bl, ) GI fup Subjective Allergies: Coded Allergies: No Known Allergies (Unverified , 07/31/17) Subjective afebrile Objective Vital Signs Last 24 Hour Vital Signs Date Time Temp Pulse Resp B/P (MAP) Pulse Ox O2 Delivery O2 Flow Rate FiO2 09/14/17 17:12 79 18 30 09/14/17 16:00 30 09/14/17 16:00 78 09/14/17 15:59 98.0 79 18 92/56 100 Mechanical Ventilator 30 98.0 09/14/17 15:09 80 18 30 09/14/17 13:37 82 18 30 09/14/17 12:00 84 09/14/17 12:00 97.4 87 18 105/62 100 Mechanical Ventilator 30 97.4 09/14/17 12:00 30 09/14/17 10:38 80 18 30 09/14/17 09:03 82 18 30 09/14/17 09:00 30 09/14/17 08:00 80 09/14/17 08:00 98.1 81 18 144/70 97 Mechanical Ventilator 30 98.1 09/14/17 06:50 80 18 30 09/14/17 04:39 81 18 30 09/14/17 04:00 85 09/14/17 04:00 98.1 83 18 112/68 100 Mechanical Ventilator 30 98.1 09/14/17 04:00 30 09/14/17 03:23 82 18 30 09/14/17 00:42 81 18 30 09/14/17 00:00 97.4 86 18 108/72 97 Mechanical Ventilator 30 97.4 09/14/17 00:00 30 09/13/17 23:24 82 09/13/17 22:53 82 18 30 09/13/17 21:26 82 18 30 09/13/17 20:00 30 09/13/17 20:00 83 09/13/17 20:00 97.9 83 18 115/75 98 Mechanical Ventilator 30 97.9 09/13/17 19:40 84 18 30 Height (Feet): 6 Height (Inches): 0.00 Weight (Pounds): 122 HEENT: atraumatic Respiratory/Chest: normal breath sounds Cardiovascular: regular rhythm Abdomen: non distended Laboratory Tests Test 09/14/17 04:50 White Blood Count 7.2 K/UL (4.8-10.8) Red Blood Count 2.80 M/UL (4.70-6.10) L Hemoglobin 8.5 G/DL (14.2-18.0) L Hematocrit 25.2 % (42.0-52.0) L Mean Corpuscular Volume 90 FL (80-99) Mean Corpuscular Hemoglobin 30.2 PG (27.0-31.0) Mean Corpuscular Hemoglobin Concent 33.7 G/DL (32.0-36.0) Red Cell Distribution Width 15.4 % (11.6-14.8) H Platelet Count 319 K/UL (150-450) Mean Platelet Volume 7.0 FL (6.5-10.1) Neutrophils (%) (Auto) 75.0 % (45.0-75.0) Lymphocytes (%) (Auto) 14.7 % (20.0-45.0) L Monocytes (%) (Auto) 7.4 % (1.0-10.0) Eosinophils (%) (Auto) 2.6 % (0.0-3.0) Basophils (%) (Auto) 0.3 % (0.0-2.0) Prothrombin Time 13.0 SEC (9.30-11.50) H Prothromb Time International Ratio 1.2 (0.9-1.1) H Activated Partial Thromboplast Time 32 SEC (23-33) Sodium Level 149 MMOL/L (136-145) H Potassium Level 3.6 MMOL/L (3.5-5.1) Chloride Level 118 MMOL/L (98-107) H Carbon Dioxide Level 18 MMOL/L (21-32) L Anion Gap 13 mmol/L (5-15) Blood Urea Nitrogen 39 mg/dL (7-18) H Creatinine 1.1 MG/DL (0.55-1.30) Estimat Glomerular Filtration Rate > 60 mL/min (>60) Glucose Level 108 MG/DL (74-106) H Calcium Level 9.3 MG/DL (8.5-10.1) Phosphorus Level 2.9 MG/DL (2.5-4.9) Magnesium Level 1.8 MG/DL (1.8-2.4) Total Bilirubin 0.5 MG/DL (0.2-1.0) Aspartate Amino Transf (AST/SGOT) 92 U/L (15-37) H Alanine Aminotransferase (ALT/SGPT) 43 U/L (12-78) Alkaline Phosphatase 1843 U/L (46-116) H Total Protein 8.1 G/DL (6.4-8.2) Albumin 1.9 G/DL (3.4-5.0) L Globulin 6.2 g/dL Albumin/Globulin Ratio 0.3 (1.0-2.7) L Current Medications Medications (Trade) Dose Ordered Sig/Serena Route PRN Reason Start Time Stop Time Status Last Admin Dose Admin Amiodarone HCl (Cordarone) 200 mg EVERY 12 HOURS GT 08/28/17 09:00 09/27/17 09:00 09/14/17 08:30 Chlorhexidine Gluconate (Ngoc-Hex 2%) 1 applic DAILY@1999 TOPIC 08/24/17 20:00 09/23/17 19:59 09/13/17 20:42 Dextrose (Dextrose 50%) 25 ml STAT PRN IV HYPOGLYCEMIA 09/07/17 08:45 10/07/17 08:44 Dextrose (Dextrose 50%) 50 ml STAT PRN IV Hypoglycemia 09/07/17 08:45 09/29/17 09:29 Heparin Sodium (Porcine) (Heparin 5000 units/ml) 5,000 units EVERY 12 HOURS SUBQ 08/28/17 09:00 09/27/17 09:00 09/14/17 08:32 Levetiracetam (Keppra) 250 mg Q12HR GT 09/14/17 21:00 10/14/17 20:59 Meropenem 1 gm/ Sodium Chloride 110 ml @ 220 mls/hr 0100,0900,1700 IVPB 09/14/17 01:00 09/19/17 00:59 09/14/17 17:12 Ondansetron HCl (Zofran) 4 mg Q6H PRN IVP Nausea & Vomiting 08/28/17 08:30 09/27/17 08:29 Opium Tincture (Opium Tincture) 2 ml QID ORAL 09/09/17 15:30 09/16/17 15:29 09/14/17 18:20 Pantoprazole (Protonix) 40 mg DAILY IV 08/01/17 09:00 09/30/17 08:59 09/14/17 08:31 Polyethylene Glycol (Miralax) 17 gm DAILYPRN PRN ORAL Constipation 08/28/17 08:00 09/27/17 08:00 Vancomycin HCl (Vanco rx to dose) 1 ea DAILY PRN MISC Per rx protocol 09/09/17 12:30 10/09/17 12:29 Vancomycin/Sodium Chloride 250 ml @ 166.667 mls/hr Q48H IVPB 09/12/17 15:00 09/17/17 14:59 09/14/17 14:44 Norman Chen MD Sep 14, 2017 19:31
[2017-09-14 20:00] VITALS: BP 124/71
[2017-09-14] MEDS ORDERED: levETIRAcetam 500mg/5ml Liquid GT SCH (21:00)
--- NOTE | 2017-09-15 20:50 | General Progress Note ---
Assessment/Plan Assessment/Plan #. Anemia of chronic disease. Monitor closely. --> ESR 134. Hemoglobin has been above goal. --> Anemia workup reviewed. --> Iron 37, TIBC 99, Vit B12 535, Folate 11.4 --> Blood transfusion not required unless symptomatic or hgb below 7. --> Levels improved from yesterday. #. Sepsis --> On vancomycin. --> Wbc count downtrended and improved. #. Coagulopathy. Likely due to decreased vitamin K intake. Imaging reviewed. --> Prominent pancreas, calcification is noted. --> On anticoagulation -- heparin sq #. Leukocytosis, likely secondary to urinary tract infection. --> On broad-spectrum antibiotics. --> Monitor closely. --> Has improved from yesterday. Resolved at this time. #. Dysphagia, status post percutaneous endoscopic gastrostomy tube. #. Cholelithiasis is noted on ultrasound. Borderline diabetic --> HIDA scan is negative. #. Hepatomegaly. #. Transaminitis has since improved, potentially secondary to medications v other causes #. Wound care. Pressure ulcer. #. Ventilator-associated pneumonia. --> On vent and abx --> Tachycardia improved. --> Contracted. #. G-tube feeding. Possible TB seen in recent CAT scan. Pt was placed in isolation. S/P stomach biopsy --> Showing chronic gastritis. Helicobacter (-) Subjective Date patient seen: Sep 14, 2017 Constitutional: Denies: no symptoms, chills, diaphoresis, fever, malaise, weakness, other HEENT: Denies: no symptoms, eye pain, blurred vision, tearing, double vision, ear pain, ear discharge, nose pain, nose congestion, throat pain, throat swelling, mouth pain, mouth swelling, other Cardiovascular: Denies: no symptoms, chest pain, edema, irregular heart rate, lightheadedness, palpitations, syncope, other Respiratory: Denies: no symptoms, cough, orthopnea, shortness of breath, SOB with excertion, SOB at rest, sputum, stridor, wheezing, other Gastrointestinal/Abdominal: Denies: no symptoms, abdomen distended, abdominal pain, black stools, tarry stools, blood in stool, constipated, diarrhea, difficulty swallowing, nausea, poor appetite, poor fluid intake, rectal bleeding , vomiting, other Genitourinary: Denies: no symptoms, burning, discharge, frequency, flank pain, hematuria, incontinence, pain, urgency, other Neurologic/Psychiatric: Denies: no symptoms, anxiety, depressed, emotional problems, headache, numbness, paresthesia, pre-existing deficit, seizure, tingling, tremors, weakness, other Hematologic/Lymphatic: Reports: anemia Allergies: Coded Allergies: No Known Allergies (Unverified , 07/31/17) Subjective S/P stomach biop. Vitals stable. Pending dc today. Objective Intake and Output 09/14/17 09/15/17 19:00 07:00 Intake Total 925.000 ml Output Total 1050 ml Balance -125.000 ml Free Water 100 ml IV Total 580.000 ml Tube Feeding 245 ml Output Urine Total 500 ml Stool Total 550 ml Height (Feet): 6 Height (Inches): 0.00 Weight (Pounds): 122 General Appearance: no apparent distress Respiratory/Chest: decreased breath sounds López Vásquez MD Sep 15, 2017 20:50
--- NOTE | 2017-09-16 16:40 | Discharge Summary ---
Discharge Summary Discharge Summary Discharge Summary DATE OF ADMISSION: 07/31/2017 DATE OF DISCHARGE: 09/14/2017 CONSULTANTS: Dr. Norman Owens BRIEF HOSPITAL COURSE: Patient is a 62-year-old male with history of chronic trach/vent/PEG, assisted resident, was brought in with complaints of rapid heart beat. On evaluation at ED he was found to be febrile, temperature 103.8, he was tachycardic, heart rate in the 130s. He was given Tylenol and IV fluids. He was pancultured. Blood work showed leukocytosis WBC 23.8, hemoglobin 8 hematocrit 23, urinalysis with 10-15 WBC, 5-10 RBC, 3+ leukocyte esterase. Chest x-ray with left pleural effusion. Influenza screen was negative. He was initially planned for transfer to [facility], however, transportation was not arranged, he was admitted to [facility] for evaluation of sepsis, pneumonia, urinary tract infection, anemia. He was seen by infectious disease specialist and was initially started on IV vancomycin and cefepime, it was later switched to Zosyn and gentamicin.. He came in with multiple decubitus ulcer, he was seen by surgery and was given wound care. He also had lower extremity ulcerations likely ischemic in nature. No surgical intervention needed. Bone scan done was worrisome for acute osteomyelitis. Blood culture was growing coagulase-negative staph, he came in with an old PICC line. PICC line was discontinued. Wound culture was growing MDR clamshell and MDR a Citrobacter, sacral wound with mixed growth. He had elevated ESR 130, CRP was 8. He was given IV Merrem and inhaled colistin for treatment of osteomyelitis and pneumonia. A new PICC line was inserted on 08/03/2017. Arterial duplex scan of bilateral extremities was within normal limits. Venous duplex was negative for DVT. Chest x-ray showed right-sided pleural effusion, he underwent ultrasound-guided thoracentesis on 08/11/2017 yielding 400 mL of fluid. Pathology result was negative for malignant cells. He had continued leukocytosis, unclear source. Chest CT was done and showed extensive interstitial opacities throughout the right lung with groundglass opacities. There was right lower lobe consolidation. He was placed on respiratory isolation. Abdominal CT showed possible wall thickening of proximal and mid transverse and ascending colon. There was somewhat prominent pancreas, consideration for acute pancreatitis. TB spot positive, however, TB PCR was negative. He was eventually taken off respiratory isolation and was cleared by [facility]. Patient was having profuse diarrhea, uncertain of etiology. C. difficile was negative. Alkaline phosphatase was elevated. LFTs were elevated. Abdominal CT did not clearly show that the G-tube was perfectly within the stomach. Any possible leakage of tube feeding could result in diarrhea, which could explain the undigested tube feeding material seen with the stools. On 09/12/2017, he underwent upper endoscopy with biopsy, G-tube placement and endoscopic ultrasound by Dr. Owens. Patient had dilated pancreatic duct and common bile duct without any obvious stone in the common bile done or ampullary or pancreatic mass. Repeat blood culture showed no growth however, again showed bacteremia, a new PICC line was inserted. Latest blood culture did not isolate any growth. He was eventually discharged back to [facility]. FINAL DIAGNOSES: Sepsis Vent dependent respiratory failure Encephalopathy Pleural effusion status post thoracenteses Malpositioned G-tube Status post EGD with new PEG placement and EUS Dysphagia on G-tube Diarrhea PICC line infection with coagulase-negative staph Multiple decubitus pressure ulcer present on admission Left heel unstageable decubitus ulcer present on admission, probable osteomyelitis per bone scan Sacral wound with MDR Klebsiella and Acinetobacter GERD Acute kidney injury Acute anemia requiring blood transfusion Seizure disorder Hypertension Functional quadriplegia Anemia of chronic disease DISPOSITION: Patient was discharged back to [facility] DISCHARGE MEDICATIONS: Refer to Discharge Medication List. I have been assigned to dictate discharge summary on this account, and I was not involved in the patient's management. Amanda James NP Sep 16, 2017 16:39
== END 2017-09-14 19:55 | DRG 720 ==
LOC: EDBD 12:32 → EMR 13:00 → EDBEDREQ 16:18 → 2W 16:36
PROC: 5A1955Z Respiratory Ventilation, Greater than 96 Consecutive Hours (ICD-10-PCS; principal; 2017-07-31)
PROC: 02HV33Z Insertion of Infusion Device into Superior Vena Cava, Percutaneous Approach (ICD-10-PCS; 2017-08-03)
PROC: B548ZZA Ultrasonography of Superior Vena Cava, Guidance (ICD-10-PCS; 2017-08-03)
PROC: 0W993ZZ Drainage of Right Pleural Cavity, Percutaneous Approach (ICD-10-PCS; 2017-08-12)
PROC: 02HV33Z Insertion of Infusion Device into Superior Vena Cava, Percutaneous Approach (ICD-10-PCS; 2017-08-25)
PROC: B548ZZA Ultrasonography of Superior Vena Cava, Guidance (ICD-10-PCS; 2017-08-25)
PROC: 0DB68ZX Excision of Stomach, Via Natural or Artificial Opening Endoscopic, Diagnostic (ICD-10-PCS; 2017-09-12)
PROC: BD47ZZZ Ultrasonography of Gastrointestinal Tract (ICD-10-PCS; 2017-09-12)
PROC: 0DH63UZ Insertion of Feeding Device into Stomach, Percutaneous Approach (ICD-10-PCS; 2017-09-12)
DX: A41.9 Sepsis, unspecified organism (principal); G93.40 Encephalopathy, unspecified; J90 Pleural effusion, not elsewhere classified; N17.9 Acute kidney failure, unspecified; Z99.11 Dependence on respirator [ventilator] status; J96.10 Chronic respiratory failure, unspecified whether with hypoxia or hypercapnia; L89.43 Pressure ulcer of contiguous site of back, buttock and hip, stage 3; T80.211A Bloodstream infection due to central venous catheter, initial encounter; R53.2 Functional quadriplegia; Z93.0 Tracheostomy status; N39.0 Urinary tract infection, site not specified; Z93.1 Gastrostomy status; J95.851 Ventilator associated pneumonia; M24.562 Contracture, left knee; M24.561 Contracture, right knee; E11.9 Type 2 diabetes mellitus without complications; D64.9 Anemia, unspecified; I10 Essential (primary) hypertension; K21.9 Gastro-esophageal reflux disease without esophagitis; G40.909 Epilepsy, unspecified, not intractable, without status epilepticus; M86.172 Other acute osteomyelitis, left ankle and foot; L89.620 Pressure ulcer of left heel, unstageable; R19.7 Diarrhea, unspecified; R13.10 Dysphagia, unspecified; K80.20 Calculus of gallbladder without cholecystitis without obstruction; R74.0 Nonspecific elevation of levels of transaminase and lactic acid dehydrogenase [LDH]; K94.23 Gastrostomy malfunction; K29.70 Gastritis, unspecified, without bleeding; K86.1 Other chronic pancreatitis
CPT/HCPCS: 36415; 36569; 36600; 71045; 71250; 74018; 74176; 74177; 76604; 76700; 76937; 76942; 78266; 78315; 80048; 80053; 80069; 80170; 80202; 81003; 82150; 82248; 82270; 82378; 82550; 82553; 82607; 82728; 82746; 82803; 82962; 83010; 83540; 83550; 83605; 83615; 83690; 83735; 83880; 84100; 84443; 84484; 84550; 85007; 85025; 85044; 85610; 85651; 85730; 86140; 86171; 86580; 86612; 86635; 86703; 86710; 86850; 86900; 86901; 86920; 87040; 87045; 87070; 87081; 87086; 87116; 87181; 87205; 87324; 87449; 87556; 88104; 89050; 93005; 93306; 93930; 93970; 94002; 94003; 94150; 94640; 94664; 99285; J2250; J8499